=== PATIENT | male | born 1940 | race Caucasian/White ===

== ENCOUNTER → 2018-09-02 12:51 | Outpatient (CLI) | payer MEDICARE, BC, SELFPAY ==
[2018-08-28 11:23] VITALS: BMI 30.8
--- NOTE | 2018-09-02 12:54 | CDU_ITS ---
Reason For Study: STENOSIS Rt. Velocities/BP Lt. Velocities/BP Prox CCA 85/13 cm/sec. Prox CCA 97/19 cm/sec. Mid CCA 56/11 cm/sec. Mid CCA 56/14 cm/sec. Dist CCA 94/20 cm/sec. Dist CCA 64/19 cm/sec. Prox ICA 86/28 cm/sec. Prox ICA 135/32 cm/sec. Mid ICA 61/24 cm/sec. Mid ICA 101/34 cm/sec. Dist ICA 57/21 cm/sec. Dist ICA 74/29 cm/sec. Rt. ICA/CCA = 1.54. Lt. ICA/CCA = 2.4. Prox ECA 141/21 cm/sec. Prox ECA 86/10 cm/sec. Rt. Vert. 21/0 cm/sec. Lt. Vert. 42/19 cm/sec. Right Extracranial There is heterogeneous, irregular atherosclerotic plaque noted in the right common carotid artery. There is heterogeneous, irregular atherosclerotic plaque noted in the right internal carotid artery. There is heterogeneous, irregular atherosclerotic plaque noted in the right external carotid artery. Antegrade flow is noted in the right vertebral artery. Rt Vertebral demonstrates diminished flow. Left Extracranial There is heterogeneous, smooth atherosclerotic plaque noted in the left common carotid artery. There is heterogeneous, irregular atherosclerotic plaque noted in the left internal carotid artery. There is no significant atherosclerotic plaque noted in the left external carotid artery. Antegrade flow is noted in the left vertebral artery. Procedure Carotid Duplex [id number]. Exam performed in department. Interpretation Summary Minimal calcific plague right mid common carotid artery Irregular plague at the proximal right internal carotid with <50% stenosis Mild disease right external carotid Minimal calcific plague distal left common carotid artery Irregular calcific plague at the proximal left internal carotid with 50-69% stenosis. Normal flow left external carotid Patent and antegrade vertebrals bilaterally No change from 01/05/16. Ordering Physician: Eber Cuenca Referring Physician: ANGY CARMONA Performed By: Chioma Nayak, HILLARY, RVT
== END ==
PROVIDERS: Family Provider Family Medicine; PCP Family Medicine; Referring Provider Internal Medicine Cardiovascular Disease; Visit Provider Internal Medicine Cardiovascular Disease
DX: I65.23 Occlusion and stenosis of bilateral carotid arteries (principal); E78.5 Hyperlipidemia, unspecified; I10 Essential (primary) hypertension
CPT/HCPCS: 93880

== ENCOUNTER → 2018-09-10 09:43 | Outpatient (CLI) | payer MEDICARE, BC, SELFPAY ==
[2018-08-28 11:23] VITALS: BMI 30.8
[2018-09-10 10:40] LABS: AST(SGOT) 15 U/L (15-37); Alanine Aminotransfer ALT/SGPT 26 U/L (16-61); Albumin, Serum 3.7 g/dL (3.2-5.0); Alkaline Phosphatase 91 U/L (45-117); Bilirubin, Direct 0.16 mg/dL (0.00-0.30); Cholesterol 188 mg/dL (200); Globulin 3.6 g/dL (2.2-4.2); High Density Lipoprotein 49 mg/dL; Protein, Total 7.3 g/dL (6.4-8.2); Triglycerides 159 mg/dL; Very Low Density Lipoprotein 32 mg/dL (5-40)
== END ==
PROVIDERS: Family Provider Family Medicine; PCP Family Medicine; Referring Provider Internal Medicine Cardiovascular Disease; Visit Provider Internal Medicine Cardiovascular Disease
DX: E78.5 Hyperlipidemia, unspecified (principal); I10 Essential (primary) hypertension; I65.23 Occlusion and stenosis of bilateral carotid arteries
CPT/HCPCS: 36415; 80061; 80076

== ENCOUNTER → 2019-11-08 08:10 | Outpatient (CLI) | payer MEDICARE, BC, SELFPAY ==
[2019-10-13 09:35] VITALS: BMI 30.8
--- NOTE | 2019-11-08 08:12 | CDU_ITS ---
Reason For Study: Carotid stenosis Rt. Velocities/BP Lt. Velocities/BP Prox CCA 74.7/9.5 cm/sec. Prox CCA 71.1/12.6 cm/sec. Mid CCA 44.3/13.5 cm/sec. Mid CCA 53.2/11.6 cm/sec. Dist CCA 62.9/13.5 cm/sec. Dist CCA 57/11.6 cm/sec. Prox ICA 64.2/12.6 cm/sec. Prox ICA 137.5/40.7 cm/sec. Mid ICA 106/40.9 cm/sec. Mid ICA 80.9/27.9 cm/sec. Dist ICA 71.6/22.5 cm/sec. Dist ICA 73.6/22.5 cm/sec. Rt. ICA/CCA = 1.7. Lt. ICA/CCA = 2.4. Prox ECA 117.4/18.8 cm/sec. Prox ECA 78.3/13.5 cm/sec. Rt. Vert. 18.8 cm/sec. Lt. Vert. 35.2/14.2 cm/sec. Right Extracranial There is heterogeneous, irregular atherosclerotic plaque noted in the right common carotid artery. There is heterogeneous, irregular atherosclerotic plaque noted in the right internal carotid artery. There is heterogeneous, irregular atherosclerotic plaque noted in the right external carotid artery. Antegrade flow is noted in the right vertebral artery. Abnormal waveforms noted in the right vertebral artery. Left Extracranial There is heterogeneous, smooth atherosclerotic plaque noted in the left common carotid artery. There is heterogeneous, irregular atherosclerotic plaque noted in the left internal carotid artery. There is intimal thickening but no significant atherosclerotic plaque noted in the left external carotid artery. Antegrade flow is noted in the left vertebral artery. Procedure Carotid Duplex [id number]. Exam performed in department. Interpretation Summary Minimal irregular calcific plaque of the proximal right internal carotid artery with less than 50% stenosis. <50% stenosis right external carotid Irregular calcific plaque at the proximal left internal and external carotid arteries. 50-69% stenosis left internal carotid <50% stenosis left external carotid Patent, antegrade vertebrals bilaterally with very low flow noted on the right No significant change since September 02, 2018 Ordering Physician: Eber Cuenca Referring Physician: Enrrique Ryan Performed By: Cece John RVT
--- NOTE | 2019-11-08 08:12 | ECHOD_ITS ---
Reason For Study: AFIB Procedure This was a 2D Doppler, Color Flow transthoracic echocardiogram. Exam performed in department. Left Ventricle Moderate concentric left ventricular hypertrophy. The estimated ejection fraction is 65 %. Unable to assess diastolic dysfunction due to arrhythmia. Septal motion consistent with IVCD. No regional wall motion abnormalities noted. Right Ventricle Mildly dilated right ventricle. Normal systolic function. Atria The left atrium is moderately enlarged. The right atrium is severely enlarged. Normal atrial septum. Mitral Valve Mild diffuse mitral valve thickening. Mild mitral annular calcification extending into the posterior leaflet. Mild-Moderate (1-2+) eccentric mitral valve insufficiency. Tricuspid Valve Normal tricuspid valve. Mild to moderate (1-2+) tricuspid valve insufficiency. Right ventricular systolic pressure estimated to be 46 mmHg. Mild pulmonary hypertension. Aortic Valve Trisinus/trileaflet aortic valve. Mild diffuse aortic valve thickening. Trivial aortic valve insufficiency. Pulmonic Valve Normal pulmonic valve. Great Vessels Normal aortic root. Normal arch. Normal inferior vena cava. Inferior vena cava collapse with sniff. Pericardium/Pleural No pericardial effusion. MMode/2D Measurements & Calculations LVIDd: 3.6 cm IVSd: 1.4 cm Ao root diam: 4.2 cm LVIDs: 2.5 cm LVPWd: 1.4 cm RVDd: 3.7 cm FS: 31.6 % LAV(MOD-bp): 73.1 ml EDV(MOD-sp4): 69.9 ml EDV(MOD-sp2): 59.6 ml LAV(MOD-bp) Indexed: 34.0 ml/m2 ESV(MOD-sp4): 33.7 ml EF(MOD-sp2): 51.1 % LAV(MOD-sp2): 62.3 ml EF(MOD-sp4): 51.8 % LAV(MOD-sp4): 76.7 ml SV(MOD-sp4): 36.3 ml SV(MOD-sp2): 30.4 ml LA A4 area: 23.3 cm2 LA dimension(2D): 4.5 cm RA A4 area: 25.3 cm2 Time Measurements MV dec time: 0.17 sec Doppler Measurements & Calculations MV E max josé: 92.2 cm/sec Ao V2 max: 121.3 cm/sec LV V1 max: 81.0 cm/sec Ao max P.9 mmHg LV V1 max P.6 mmHg Ao V2 mean: 88.0 cm/sec LV V1 mean P.6 mmHg Ao mean P.4 mmHg LV V1 mean: 57.7 cm/sec Ao V2 VTI: 21.9 cm LV V1 VTI: 16.9 cm TR max josé: 266.4 cm/sec TR max P.4 mmHg Interpretation Summary Moderate concentric left ventricular hypertrophy. The estimated ejection fraction is 65 %. Unable to assess diastolic dysfunction due to arrhythmia. Mildly dilated right ventricle. The left atrium is moderately enlarged. The right atrium is severely enlarged. Mild-Moderate (1-2+) eccentric mitral valve insufficiency. Mild to moderate (1-2+) tricuspid valve insufficiency. Right ventricular systolic pressure estimated to be 46 mmHg. Mild pulmonary hypertension. Trivial aortic valve insufficiency. Compared to echo report dated 12/19/2016, no appreciable changes noted. Patient appears to be in atrial fibrillation on today's exam. Ordering Physician: Eber Cuenca Referring Physician: ANGY CARMONA Performed By: Chioma Nayak, HILLARY, RVT
[2019-11-08 09:07] LABS: AST(SGOT) 13 U/L (15-37); Alanine Aminotransfer ALT/SGPT 26 U/L (16-61); Albumin, Serum 3.7 g/dL (3.2-5.0); Alkaline Phosphatase 89 U/L (45-117); Bilirubin, Direct 0.17 mg/dL (0.00-0.30); Cholesterol 174 mg/dL (200); Globulin 3.2 g/dL (2.2-4.2); High Density Lipoprotein 49 mg/dL; Protein, Total 6.9 g/dL (6.4-8.2); Triglycerides 132 mg/dL; Very Low Density Lipoprotein 26 mg/dL (5-40)
== END ==
PROVIDERS: PCP Family Medicine; Referring Provider Internal Medicine Cardiovascular Disease; Visit Provider Internal Medicine Cardiovascular Disease
DX: R94.31 Abnormal electrocardiogram [ECG] [EKG] (principal); E78.5 Hyperlipidemia, unspecified; I65.23 Occlusion and stenosis of bilateral carotid arteries
CPT/HCPCS: 36415; 80061; 80076; 93306; 93880

== ENCOUNTER 2022-03-31 19:50 | Emergency (ER) | payer MEDICARE, SELFPAY ==
[2022-03-31 19:51] VITALS: BP 137/58; PULSE 105; RESP 15; TEMP 36.2; O2SAT 97; BMI 30.8
[2022-03-31 20:01] VITALS: BP 137/58; PULSE 105; RESP 15; TEMP 36.2; O2SAT 97
--- NOTE | 2022-03-31 20:09 | EKG12_ITS ---
Test Reason : DYSRHYTHMIA Blood Pressure : / mmHG Vent. Rate : 095 BPM Atrial Rate : 258 BPM P-R Int : 000 ms QRS Dur : 118 ms QT Int : 358 ms P-R-T Axes : 000 -79 087 degrees QTc Int : 449 ms Atrial fibrillation Left axis deviation Inferior infarct , age undetermined Anterior infarct , age undetermined Abnormal ECG Confirmed by SISSY GARCIA, SHAKIRA ([id number]), newspaper editor CHARLES VALIENTE ([id number]) on 04/01/2022 9:37:00 AM Referred By: VICKY Confirmed By:SHAKIRA SHEEHAN MD
--- NOTE | 2022-03-31 20:15 | EX.ED.DYSGE1 ---
HPI History of Present Illness Chief Complaint: Dizziness Detail of Chief Complaint: Lightheadedness, rash, positive COVID symptoms and test March 28 Informant: patient and family Onset/Context/Timing Onset: Hours (Present symptoms started hour before presentation.) Context: Sudden Onset Timing: Continuous Quality: Lightheadedness, feeling weak and diarrhea. Location: [facility] Current Severity: Mild Maximum Severity: Moderate Worsened by: Upright position Relieved by: Nothing Associated Symptoms Associated Symptoms: Patient was unaware that he had a fine erythematous blanching reticular dixon Narrative Narrative: Patient presents because of dizziness, which he defines as lightheadedness. This occurred while he was in the shower. He developed symptoms that were suggestive of COVID March 28. He had a COVID PCR test performed on which was positive. Since he was not a candidate for Paxlovid he was prescribed Molnupiravir. Information was sought since I am unfamiliar with this medicine. The symptoms he is presently having are common side effects of the medication. Patient denies headache. He denies visual, ocular auditory symptoms. He denies chest discomfort or shortness of breath. He denies black or maroon-colored stool. He does report diarrhea. He states significant amount of loose watery stool. He had decreased urine output. He does endorse thirst and dry mouth. Reviewing his medications indicate that he is on a diuretic. He denies fever, chills or night sweats. He was unaware that he had a rash. Prior similar symptoms: No Recent Illness/Hospitalization: Yes [facility] Medical History (Updated 03/31/22 @ 21:[address] Bar Orantes MD) Anxiety Bilateral carotid artery stenosis BPH w urinary obs/LUTS Depression Essential hypertension Hyperlipidemia Obesity Persistent atrial fibrillation Rosacea Type 2 diabetes mellitus without complications Home Medications clonidine HCl 0.1 mg tablet 0.1 mg PO DAILY 11/29/16 [History Last Taken 02/12/17] lisinopril 40 mg tablet 40 mg PO DAILY 11/29/16 [History Last Taken 02/12/17] lorazepam 0.5 mg tablet 0.5 mg PO DAILY PRN PRN Anxiety 01/13/17 [History Last Taken Unknown] aspirin 81 mg tablet,delayed release (Adult Aspirin Regimen) 81 mg PO DAILY 08/28/18 [History Last Taken Unknown] amlodipine 10 mg tablet 10 mg PO DAILY 09/11/18 [History Last Taken Unknown] cholecalciferol (vitamin D3) 50 mcg (2,000 unit) capsule 2,000 unit PO DAILY 04/12/19 [History Last Taken Unknown] carvedilol 3.125 mg tablet (Coreg) 3.125 mg PO BID #180 tabs 08/09/21 [Rx Last Taken Unknown] rivaroxaban 20 mg tablet (Xarelto) 20 mg PO QDAY bottle is lost, pt out for 2 days. Needs JAYME #30 tabs 11/01/21 [Rx Last Taken Unknown] allopurinol 100 mg tablet 100 mg PO DAILY 03/31/22 [History Last Taken Unknown] atorvastatin 20 mg tablet 20 mg PO DAILY 03/31/22 [History Last Taken Unknown] furosemide 20 mg tablet 20 mg PO DAILY 03/31/22 [History Last Taken Unknown] metformin 500 mg tablet,extended release 24 hr 500 mg PO DAILY 03/31/22 [History Last Taken Unknown] molnupiravir 200 mg capsule (EUA) (Lagevrio) 800 mg PO BID 03/31/22 [History Last Taken Unknown] Allergy/AdvReac Type Severity Reaction Status Date / Time Cephalosporins Allergy Rash Verified 03/31/22 19:57 doxycycline Allergy Rash Verified 03/31/22 19:57 simvastatin [From Zocor] AdvReac Intermediate Myalgias Verified 03/31/22 19:57 Family History Daughter Atrial tachycardia RFA Brother CAD (coronary artery disease) Surgical History H/O left knee surgery History of cardioversion (02/12/17) History of left heart catheterization (01/16/17) History of tonsillectomy and adenoidectomy Social History (Updated 03/31/22 @ 20:[address] Bar Orantes MD) household members: spouse Smoking Status: Former smoker how long ago did patient quit smokin years ago alcohol intake: never substance use type: does not use caffeine: Yes Type: coffee Number of servings: 2 ROS ROS ED Constitutional Constitutional ED: Denies chills, fever(s), subjective, sweats or weight loss Eyes Eyes: Denies blurry vision, change in vision or diplopia ENT ENT ED: Reports rhinorrhea; Denies ear pain or sore throat Cardiovascular Cardiovascular: Reports palpitations; Denies chest pain, orthopnea, paroxysmal nocturnal dyspnea or racing heartbeat Respiratory/Chest Respiratory/Chest: Reports cough, dyspnea and dyspnea on exertion; Denies orthopnea, paroxysmal nocturnal dyspnea or sputum Gastrointestinal Gastrointestinal: Reports diarrhea; Denies abdominal pain, constipation, melena or vomiting Genitourinary Genitourinary ED: Denies dysuria, hematuria or urinary frequency Musculoskeletal Musculoskeletal: Reports arthralgias and myalgias; Denies back pain or neck pain Integumentary Reports other Details: Patient was unaware that he had a blanching erythematous lenticular rash with delayed capillary refill. ; Denies Abrasions or rash Neurologic Neurologic: Reports headache(s); Denies paresthesias or weakness Psychiatric Psychiatric: Denies anxiety or depression Endocrine Endocrinology: Denies cold intolerance or heat intolerance Hematologic/Lymphatic Hematologic/Lymphatic: Reports systems reviewed and no addt'l complaints, except as documented and easy bruising; Denies anemia or easy bleeding Allergic/Immunologic Allergic/Immunologic ED: Denies mouth swelling, tongue swelling or urticaria EXAM Physical Exam Const Vital Signs: 03/31/22 19:51 03/31/22 20:01 03/31/22 20:05 Temperature 97.1 F L 97.1 F L Temperature Source Temporal Temporal Pulse Rate 105 H 105 H Pulse Rate [Lying] Pulse Rate [Sitting (for 1 minute prior to obtaining)] Respiratory Rate 15 15 Respiratory Effort Normal Non-Labored Respiratory Pattern Normal Blood Pressure 137/58 H 137/58 H Blood Pressure [Lying] Blood Pressure [Sitting (for 1 minute prior to obtaining)] Blood Pressure Mean 84 84 Blood Pressure Mean [Lying] Blood Pressure Mean [Sitting (for 1 minute prior to obtaining)] Pulse Ox 97 97 Oxygen Delivery Method Room Air Room Air 03/31/22 20:19 Temperature Temperature Source Pulse Rate Pulse Rate [Lying] 98 Pulse Rate [Sitting (for 1 minute prior to obtaining)] 112 H Respiratory Rate Respiratory Effort Respiratory Pattern Blood Pressure Blood Pressure [Lying] 121/79 H Blood Pressure [Sitting (for 1 minute prior to obtaining)] 135/96 H Blood Pressure Mean Blood Pressure Mean [Lying] 93 Blood Pressure Mean [Sitting (for 1 minute prior to obtaining)] 109 Pulse Ox Oxygen Delivery Method Positive well nourished, well developed and obese Constitutional Narrative: Patient has a rash with delayed cap refill. He does not appear toxic. Question of cyanosis of his lips. General Appearance ED: well developed; Negative for NAD or pallor Nutritional Appearance: obese HEENT Reports moist mucous membranes HEENT Narrative: Head is atraumatic normocephalic. Ears normal. Nares patent. Uvula midline. No deviation of tongue with protrusion. There is no erythema or exudate of the posterior pharynx. Eyes PERRL and EOMs intact bilaterally General Eye ED: Negative for pale conjunctiva or scleral icterus Neck no lymphadenopathy, supple and no JVD Chest Wall inspection of chest normal and palpation of chest normal Resp normal respiratory effort and clear to auscultation bilaterally Cardio no murmurs Rate: tachycardic Rhythm: abnormal rhythm irregularly irregular GI normal to inspection, nondistended, normoactive bowel sounds, non-tender and no masses Palpation: soft Back/Spine no CVA tenderness Extremity normal to inspection General Extremety ED: Negative for edema or tenderness General Extremity: Negative for edema Neuro oriented x3, CN's II-XII intact bilaterally and no sensory deficits noted Sensorium / Orientation: alert Motor Exam: strength 5/5 throughout Psych mental status grossly normal Skin no wounds Skin Narrative: Patient has a lenticular erythematous rash. There is delayed capillary refill. This is predominantly on his torso. General Skin Exam: Negative for jaundice or pallor MDM MDM MDM Narrative Medical decision making narrative: Monitor reveals atrial fibrillation with rate varying between 95 and 130. Patient's symptoms are consistent with side effects due to the antiviral he was prescribed for COVID-19 infection. I reviewed the indications and side effects. Symptoms the patient is presently symptoms are known side effects of the medication. In review viewing of document patient does not meet criteria for to be treated with the medication. Patient was placed on the monitor. IV was established. Orthostatic vitals were ordered. Fluid bolus was ordered. Blood work was obtained to assess for any evidence of renal injury, electrolyte abnormality since he has diarrhea, white count and differential. Presently he has no signs or symptoms to suggest he has angioedema which is a known complication to the medication. He denies chest discomfort or trouble breathing. These also are known side effects to the medication. Lab Data Attestation: I reviewed the patient's lab results. Lab results narrative: White count is lower end of normal. Differential is unremarkable. Lactate is normal. Electrolyte panel is remarkable for a sodium of 133 which is insignificant. Labs: Laboratory Results - last 24 hr 03/31/22 03/31/22 03/31/22 20:05 20:05 20:05 WBC 4.7 RBC 5.70 Hgb 17.9 H Hct 52.8 MCV 92.6 MCH 31.4 MCHC 33.9 RDW Std Deviation 44.5 H RDW Coeff of Alli 13.2 Plt Count 171 MPV 9.6 Immature Gran % (Auto) 0.400 Neut % (Auto) 64.1 Lymph % (Auto) 22.6 [place] % (Auto) 12.3 H Eos % (Auto) 0.0 Baso % (Auto) 0.6 Absolute Neuts (auto) 3.0 Absolute Lymphs (auto) 1.06 Nucleated RBC % 0 Sodium 133 L Potassium 4.1 Chloride 100 Carbon Dioxide 25.0 Anion Gap 8 BUN 17 Creatinine 1.19 Estim Creat Clear Calc 49.42 Est GFR (MDRD) Af Amer 75 Est GFR (MDRD) Non-Af 62 BUN/Creatinine Ratio 14.3 Glucose 183 H Lactic Acid 1.4 Calcium 8.9 Total Bilirubin 0.50 AST 20 ALT 27 Alkaline Phosphatase 79 Total Protein 7.4 Albumin 3.6 Globulin 3.8 Albumin/Globulin Ratio 0.9 EKG Initial EKG: Attestation: I personally reviewed and interpreted this EKG as follows: Interpretation: Atrial Fibrillation (Rate is 95. Cures duration 118 ms. QT duration 1058 ms. [place] to left. Patient has decreased anterior force. There is no ossific changes noted. There is no evidence of acute ischemia.) Treatment and Re-Evaluation Narrative: I was informed by nurse that his heart rate increased approximately 20 beats from supine to sitting. He was unable to stand because of dizziness lightheadedness. Patient feels improved after 1 L of normal saline. Heart rate is improved and rate varies between 82 and 95. He remains in atrial fib. Discharge Plan Triage Chief Complaint: Dizziness ED Provider: Bar Orantes Dx/Rx/DC Orders Clinical Impression: Adverse effect of drug/medicinal, Essential hypertension, Persistent atrial fibrillation, Atrial fibrillation with RVR, Orthostatic hypotension, Diarrhea due to drug, COVID-19 virus infection Instructions: ED Drug Reaction, Other, ED Hypotension, Orthostatic Prescriptions: No Action aspirin [Adult Aspirin Regimen] 81 mg tablet,delayed release (DR/EC) 81 mg PO DAILY cholecalciferol (vitamin D3) 2,000 unit capsule 2,000 unit PO DAILY amlodipine 10 mg tablet 10 mg PO DAILY clonidine HCl 0.1 MG tablet 0.1 mg PO DAILY lisinopril 40 MG tablet 40 mg PO DAILY lorazepam 0.5 MG tablet 0.5 mg PO DAILY PRN PRN (Reason: Anxiety) allopurinol 100 mg Tablet 100 mg PO DAILY atorvastatin 20 mg tablet 20 mg PO DAILY Label Comments: Take 1 tablet by mouth daily at bedtime. For cholesterol. furosemide 20 mg tablet 20 mg PO DAILY Label Comments: Take 1 tablet by mouth once daily. metformin 500 mg tablet extended release 24 hr 500 mg PO DAILY Label Comments: Take 1 tablet by mouth daily with breakfast. Lagevrio (EUA) 200 mg capsule 800 mg PO BID carvedilol [Coreg] 3.125 mg tablet 3.125 mg PO BID Qty: 180 3RF Rx Instructions: must administer with a meal/food Xarelto 20 mg tablet 20 mg PO QDAY Qty: 30 11RF Primary Care Provider: Enrrique Ryan Referrals: Enrrique Ryan MD [Primary Care Provider] - 1-2 Days if not improving Activity Restrictions/Additional Instructions: Discontinue taking the medication for COVID-19, Molnupiravir. Disposition Disposition: Home, Self Care
[2022-03-31 20:19] VITALS: BP 121/79; BP 135/96; PULSE 112; PULSE 98
[2022-03-31 20:25] LABS: Absolute Lymphocyte Count 1.06 X10^3/uL (0.83-4.51); Basophil# 0.03 X10^3/uL; Basophil% 0.6 % (0-1); Hematocrit 52.8 % (40-54); Hemoglobin 17.9 g/dL (13.0-16.5); Lymphocyte # 1.06 X10^3/ul (0.83-4.51); Lymphocyte % 22.6 % (19-41); Mean Corp Hgb Conc 33.9 g/dL (32-36); Mean Corpuscular Hgb 31.4 pg (27.0-32.0); Mean Corpuscular Volume 92.6 fL (80-94); Mean Platelet Vol. 9.6 fl (6.2-12.0); Monocyte# 0.58 X10^3/uL; Monocyte% 12.3 % (0-10); NRBC Flagged by Analyzer 0 % (0-5); Neutrophil # 3.01 X10^3/uL (2.7-7.7); Neutrophil % 64.1 % (47-70); Platelet Count 171 K/mm3 (150-450); RBC Distribution Width CV 13.2 % (11.6-14.6); RBC Distribution Width SD 44.5 fl (35.1-43.9); White Blood Count 4.7 K/mm3 (4.4-11.0)
[2022-03-31 20:36] LABS: ALB/GLOB Ratio 0.9 RATIO (0.9-2.4); AST(SGOT) 20 U/L (15-37); Alanine Aminotransfer ALT/SGPT 27 U/L (16-61); Albumin, Serum 3.6 g/dL (3.2-5.0); Alkaline Phosphatase 79 U/L (45-117); Anion Gap 8 (5-15); BUN 17 mg/dL (7-18); BUN/Creat Ratio 14.3 RATIO (10-20); Calcium,Total 8.9 mg/dL (8.5-10.1); Chloride 100 mmol/L (98-107); Creatinine, Serum 1.19 mg/dL (0.70-1.30); EST Glomerular Filtration Rate 62 mL/min (>60); Est Glom Filt Rate - Afr Amer 75 mL/min (>60); Estimated Creatinine Clearance 49.42 ml/min; Globulin 3.8 g/dL (2.2-4.2); Glucose 183 mg/dL (74-106); Potassium 4.1 mmol/L (3.5-5.1); Protein, Total 7.4 g/dL (6.4-8.2); Sodium Level 133 mmol/L (136-145)
[2022-03-31 20:49] LABS: Lactic Acid 1.4 mmol/L (0.4-1.9)
[2022-03-31 21:39] VITALS: BP 128/78; PULSE 87; RESP 15; O2SAT 98
== END 2022-03-31 21:52 | disposition home or self-care (01) ==
PROVIDERS: Emergency Provider Emergency Medicine; PCP Family Medicine; Visit Provider Emergency Medicine
DX: U07.1 COVID-19 (principal); I48.19 Other persistent atrial fibrillation; E11.9 Type 2 diabetes mellitus without complications; R42 Dizziness and giddiness; T37.5X5A Adverse effect of antiviral drugs, initial encounter; I10 Essential (primary) hypertension; I95.1 Orthostatic hypotension; R21 Rash and other nonspecific skin eruption; Z87.891 Personal history of nicotine dependence; R19.7 Diarrhea, unspecified; E78.5 Hyperlipidemia, unspecified; Z79.84 Long term (current) use of oral hypoglycemic drugs; Z79.899 Other long term (current) drug therapy
CPT/HCPCS: 80053; 83605; 85025; 93005; 96360; 99285; J7030; A4216

== ENCOUNTER → 2022-06-05 | Outpatient (CLI) | payer MEDICARE, SELFPAY ==
--- NOTE | 2022-06-05 12:55 | CDU_ITS ---
Reason For Study: Carotid artery stenosis Rt. Velocities/BP Lt. Velocities/BP Prox CCA 67.4/8.8 cm/sec. Prox CCA 61.7/11.6 cm/sec. Mid CCA 47.5/12.6 cm/sec. Mid CCA 51.3/11.6 cm/sec. Dist CCA 55.1/9.7 cm/sec. Dist CCA 54.1/11.6 cm/sec. Prox ICA 80.2/26.2 cm/sec. Prox ICA 134.6/44.6 cm/sec. Mid ICA 72.8/16.3 cm/sec. Mid ICA 70.4/17.6 cm/sec. Dist ICA 46.5/14.6 cm/sec. Dist ICA 59.3/16.3 cm/sec. Rt. ICA/CCA = 1.46. Lt. ICA/CCA = 2.49. Prox ECA 122.9/7.9 cm/sec. Prox ECA 91.2/7.7 cm/sec. Rt. Vert. 12.2 cm/sec. Lt. Vert. 37.7/11.3 cm/sec. Right Extracranial There is heterogeneous, irregular atherosclerotic plaque noted in the right common carotid artery. There is heterogeneous, irregular atherosclerotic plaque noted in the right internal carotid artery. There is heterogeneous, irregular atherosclerotic plaque noted in the right external carotid artery. Antegrade flow is noted in the right vertebral artery. Left Extracranial There is heterogeneous, smooth atherosclerotic plaque noted in the left common carotid artery. There is heterogeneous, irregular atherosclerotic plaque noted in the left internal carotid artery. There is heterogeneous, smooth atherosclerotic plaque noted in the left external carotid artery. Antegrade flow is noted in the left vertebral artery. Procedure Carotid Duplex [id number]. This is a Carotid Duplex examination using B-mode, color flow and specral Doppler. Exam performed in department. VL/Carotid Duplex Ultrasound Interpretation Summary Irregular calcific plaque at the proximal right internal carotid artery with le ss than 50% stenosis Less than 50% stenosis right external carotid artery Prestenotic flow right vertebral Calcific plaque with shadowing at the proximal left internal carotid with 50 to 69% stenosis Less than 50% stenosis left external carotid Patent antegrade left vertebral No significant change from the previous examination of November 08, 2019 Ordering Physician: Lola Sahni Referring Physician: Enrrique Ryan Performed By: Cece John RVT
== END | disposition home or self-care (01) ==
LOC: CVS 12:54
PROVIDERS: PCP Family Medicine; Referring Provider Nurse Practitioner Gerontology; Visit Provider Nurse Practitioner Gerontology
DX: I65.23 Occlusion and stenosis of bilateral carotid arteries (principal)
CPT/HCPCS: 93880

== ENCOUNTER 2023-04-23 23:08 | Emergency (ER) | payer MEDICARE, SELFPAY ==
[2023-04-23 23:09] VITALS: BP 178/99; PULSE 133; RESP 18; TEMP 36.6; O2SAT 99; BMI 31.3
--- NOTE | 2023-04-23 23:16 | EKG12_ITS ---
Test Reason : DYSRHYTHMIA Blood Pressure : / mmHG Vent. Rate : 097 BPM Atrial Rate : 000 BPM P-R Int : 000 ms QRS Dur : 118 ms QT Int : 384 ms P-R-T Axes : 000 -74 101 degrees QTc Int : 487 ms Atrial fibrillation with premature ventricular or aberrantly conducted complexes Left axis deviation Minimal voltage criteria for LVH, may be normal variant ( Cristian product ) Inferior infarct (cited on or before 31-MAR-2022) Anterior infarct (cited on or before 31-MAR-2022) ST & T wave abnormality, consider lateral ischemia Abnormal ECG Confirmed by PREET GARCIA, JONATHAN ([id number]), social media editor CARLITO DAILY ([id number]) on 05/05/2023 8:03:40 AM Referred By: Confirmed By:ZACHARY OVIEDO MD
[2023-04-23 23:40] VITALS: O2SAT 97
[2023-04-23 23:45] LABS: Absolute Lymphocyte Count 1.56 X10^3/uL (0.83-4.51); Absolute Neutrophil Count 7.6 X10^3/uL (2.0-7.7); Basophil# 0.07 X10^3/uL; Basophil% 0.7 % (0-1); Eosinophil# 0.01 X10^3/uL; Eosinophils% 0.1 % (0-5); Hemoglobin 17.4 g/dL (13.0-16.5); Lymphocyte # 1.56 X10^3/ul (0.83-4.51); Lymphocyte % 15.5 % (19-41); Mean Corp Hgb Conc 34.8 g/dL (32-36); Mean Corpuscular Hgb 32.3 pg (27.0-32.0); Mean Corpuscular Volume 92.8 fL (80-94); Mean Platelet Vol. 9.4 fl (6.2-12.0); Monocyte# 0.79 X10^3/uL; Monocyte% 7.8 % (0-10); NRBC Flagged by Analyzer 0 % (0-5); Neutrophil # 7.63 X10^3/uL (2.7-7.7); Neutrophil % 75.6 % (47-70); Platelet Count 222 K/mm3 (150-450); RBC Distribution Width CV 13.4 % (11.6-14.6); RBC Distribution Width SD 45.8 fl (35.1-43.9); Red Blood Count 5.39 M/mm3 (4.6-6.2); White Blood Count 10.1 K/mm3 (4.4-11.0)
[2023-04-23 23:51] LABS: International Normalized Ratio 1.3; Partial Thromboplast Time 34.5 Seconds (24.1-36.2); Prothrombin Time (Protime)PT. 16.1 SECONDS (11.7-14.9)
[2023-04-23] MEDS: LORazepam 2 MG/ML Syringe 1 MG IV (23:55)
[2023-04-23 23:56] LABS: Anion Gap 7 (5-15); BUN 19 mg/dL (7-18); BUN/Creat Ratio 19.5 RATIO (10-20); Calcium,Total 9.4 mg/dL (8.5-10.1); Chloride 103 mmol/L (98-107); Creatinine, Serum 0.98 mg/dL (0.70-1.30); EST Glomerular Filtration Rate 78 mL/min (>60); Est Glom Filt Rate - Afr Amer 94 mL/min (>60); Estimated Creatinine Clearance 55.26 ml/min; Glucose 199 mg/dL (74-106); Potassium 4.4 mmol/L (3.5-5.1); Sodium Level 136 mmol/L (136-145)
[2023-04-24 00:13] LABS: Magnesium 2.3 mg/dL (1.6-2.6)
--- NOTE | 2023-04-24 00:49 | EDS_ITS ---
HPI History of Present Illness Chief Complaint: Dizziness Informant: patient and family Narrative Narrative: Patient is a 82-year-old male with past medical history of persistent A-fib on Xarelto with hypertension and hyperlipidemia. He and family state that his who has dementia was somehow able to get a hold of his car keys and she left the house and when driving and they cannot find her. He states that they contacted authorities and on the family numbers and despite looking have not been successful in finding the patient's . The patient states that 1 to 2 hours after this event and the fact he could not find her he started to get nervous/anxious and began feeling lightheaded and dizzy. His symptoms not improved and secondary to this he was brought to the hospital for evaluation [facility] Medical History Anxiety Bilateral carotid artery stenosis BPH w urinary obs/LUTS Depression Essential hypertension Hyperlipidemia Obesity Persistent atrial fibrillation Rosacea Type 2 diabetes mellitus without complications Home Medications clonidine HCl 0.1 mg tablet 0.1 mg PO DAILY 11/29/16 [History Last Taken 02/12/17] lisinopril 40 mg tablet 40 mg PO DAILY 11/29/16 [History Last Taken 02/12/17] lorazepam 0.5 mg tablet 0.5 mg PO DAILY PRN PRN Anxiety 01/13/17 [History Last Taken Unknown] aspirin 81 mg tablet,delayed release (Adult Aspirin Regimen) 81 mg PO DAILY 08/28/18 [History Last Taken Unknown] amlodipine 10 mg tablet 10 mg PO DAILY 09/11/18 [History Last Taken Unknown] cholecalciferol (vitamin D3) 50 mcg (2,000 unit) capsule 2,000 unit PO DAILY 04/12/19 [History Last Taken Unknown] allopurinol 100 mg tablet 100 mg PO DAILY 03/31/22 [History Last Taken Unknown] atorvastatin 20 mg tablet 20 mg PO DAILY 03/31/22 [History Last Taken Unknown] furosemide 20 mg tablet 20 mg PO DAILY 03/31/22 [History Last Taken Unknown] metformin 500 mg tablet,extended release 24 hr 500 mg PO DAILY 03/31/22 [History Last Taken Unknown] carvedilol 3.125 mg tablet (Coreg) 3.125 mg PO BID #180 tabs 08/23/22 [Rx Last Taken Unknown] rivaroxaban 20 mg tablet (Xarelto) 20 mg PO QDAY #30 tabs 11/04/22 [Rx Last Taken Unknown] Allergy/AdvReac Type Severity Reaction Status Date / Time Cephalosporins Allergy Rash Verified 04/23/23 23:11 doxycycline Allergy Rash Verified 04/23/23 23:11 simvastatin [From Zocor] AdvReac Intermediate Myalgias Verified 04/23/23 23:11 Family History Daughter Atrial tachycardia RFA Brother CAD (coronary artery disease) Surgical History H/O left knee surgery History of cardioversion (02/12/17) History of left heart catheterization (01/16/17) History of tonsillectomy and adenoidectomy Social History household members: spouse Smoking Status: Former smoker how long ago did patient quit smokin years ago alcohol intake: never substance use type: does not use caffeine: Yes Type: coffee Number of servings: 2 ROS ROS ED Constitutional Constitutional ED: Denies chills or fever(s) Eyes Eyes: Denies change in vision ENT ENT ED: Denies sore throat Cardiovascular Cardiovascular: Reports racing heartbeat; Denies chest pain or palpitations Respiratory/Chest Respiratory/Chest: Denies cough or dyspnea Gastrointestinal Gastrointestinal: Denies abdominal pain, diarrhea, nausea or vomiting Genitourinary Genitourinary ED: Denies dysuria Musculoskeletal Musculoskeletal: Denies myalgias Integumentary Denies rash Neurologic Neurologic: Reports other Details: Positive dizziness ; Denies headache(s) Psychiatric Psychiatric: Reports anxiety Hematologic/Lymphatic Hematologic/Lymphatic: Reports easy bleeding and easy bruising EXAM Physical Exam Const Vital Signs: 04/23/23 23:09 04/23/23 23:40 Temperature 97.9 F Temperature Source Temporal Pulse Rate 133 H Respiratory Rate 18 Blood Pressure 178/99 H Blood Pressure Mean 125 Pulse Ox 99 97 Oxygen Delivery Method Room Air Room Air Positive well nourished and well developed General Appearance ED: well developed; Negative for pallor HEENT Reports moist mucous membranes Eyes PERRL and EOMs intact bilaterally General Eye ED: Negative for pale conjunctiva or scleral icterus Neck supple Neck Narrative: No nuchal rigidity or meningeal signs noted Resp normal respiratory effort and clear to auscultation bilaterally Cardio regular rate Rate: other Other Details: Patient has an irregularly irregular rhythm with regular rate consistent with atrial fibrillation GI normal to inspection, nondistended, normoactive bowel sounds, non-tender, non- distended and no masses GI Narrative: No voluntary guarding or rigidity No pulsatile mass or fluid wave Auscultation: normoactive bowel sounds Palpation: soft Extremity normal to inspection Neuro oriented x3, CN's II-XII intact bilaterally and no sensory deficits noted Neuro Narrative: Cranial nerves II through XII are grossly intact there are no focal neurologic deficits No pronator drift no dysmetria no truncal ataxia No nystagmus noted Sensorium / Orientation: alert Motor Exam: strength 5/5 throughout Psych Psych Narrative: Patient has a nervous/anxious affect Skin no rashes or lesions noted General Skin Exam: Negative for jaundice or pallor MDM MDM MDM Narrative Medical decision making narrative: Patient presented to the ER hypertensive but otherwise with stable vitals. He is in atrial fibrillation but has a past medical history of this is anticoagulated on Xarelto and his heart rate is totally normal at 97. His symptoms only began after his social situation and are most consistent with acute anxiety. However as he could have had A-fib with RVR or potential anemia or cute kidney injury or left leg derangement causing his symptoms I did elect to check basic laboratory values. I discussed with patient that as he is on Xarelto there is a possibility of a spontaneous brain bleed leading to his dizziness but as he does not have ataxia drift chances for this are low and therefore patient did not want a head CT obtained. The patient was given Ativan and had improvement of his symptoms. At this time as his overall work-up is negative and vitals stable and his neurologic exam remains normal it appears this is most likely anxiety reaction and patient is safe for discharge as symptoms have improved and he will stay with family this evening History & Record Review Discussion w/independent historian: Patient and Family Lab Data Attestation: I reviewed the patient's lab results. Labs: Laboratory Results - last 24 hr 04/23/23 23:28 WBC 10.1 RBC 5.39 Hgb 17.4 H Hct 50.0 MCV 92.8 MCH 32.3 H MCHC 34.8 RDW Std Deviation 45.8 H RDW Coeff of Alli 13.4 Plt Count 222 MPV 9.4 Immature Gran % (Auto) 0.300 Neut % (Auto) 75.6 H Lymph % (Auto) 15.5 L Glasscock % (Auto) 7.8 Eos % (Auto) 0.1 Baso % (Auto) 0.7 Absolute Neuts (auto) 7.6 Absolute Lymphs (auto) 1.56 Nucleated RBC % 0 PT 16.1 H INR 1.3 APTT 34.5 Sodium 136 Potassium 4.4 Chloride 103 Carbon Dioxide 26.0 Anion Gap 7 BUN 19 H Creatinine 0.98 Estim Creat Clear Calc 55.26 Est GFR (MDRD) Af Amer 94 Est GFR (MDRD) Non-Af 78 BUN/Creatinine Ratio 19.5 Glucose 199 H Calcium 9.4 Magnesium 2.3 Discharge Plan Triage Chief Complaint: Dizziness ED Provider: Diogenes Hermosillo Dx/Rx/DC Orders Clinical Impression: Dizziness, Persistent atrial fibrillation, Anxiety reaction, Current use of assisted anticoagulation, Essential hypertension Instructions: ED Dizziness, Uncertain Cause Prescriptions: No Action aspirin [Adult Aspirin Regimen] 81 mg tablet,delayed release (DR/EC) 81 mg PO DAILY cholecalciferol (vitamin D3) 2,000 unit capsule 2,000 unit PO DAILY amlodipine 10 mg tablet 10 mg PO DAILY clonidine HCl 0.1 MG tablet 0.1 mg PO DAILY lisinopril 40 MG tablet 40 mg PO DAILY lorazepam 0.5 MG tablet 0.5 mg PO DAILY PRN PRN (Reason: Anxiety) allopurinol 100 mg Tablet 100 mg PO DAILY atorvastatin 20 mg tablet 20 mg PO DAILY Patient Comments: Take 1 tablet by mouth daily at bedtime. For cholesterol. furosemide 20 mg tablet 20 mg PO DAILY Patient Comments: Take 1 tablet by mouth once daily. metformin 500 mg tablet extended release 24 hr 500 mg PO DAILY Patient Comments: Take 1 tablet by mouth daily with breakfast. carvedilol [Coreg] 3.125 mg tablet 3.125 mg PO BID Qty: 180 3RF Rx Instructions: must administer with a meal/food Xarelto 20 mg tablet 20 mg PO QDAY Qty: 30 12RF Primary Care Provider: Enrrique Ryan Referrals: Enrrique Ryan MD [Primary Care Provider] - Activity Restrictions/Additional Instructions: Your work-up today showed no acute findings and your heart rhythm is at her baseline which is atrial fibrillation but rate is controlled. I do feel your symptoms are related to acute anxiety based on the situation that has occurred this evening. You may take your home lorazepam as directed to help control any further anxiety symptoms and if necessary you may add [id number] Benadryl. If you feel that your heart is racing and persistently elevated at a value of approximately 150 or you have difficulty standing or walking or any further concerns please return to the ER for repeat evaluation. Disposition Disposition: Home, Self Care
[2023-04-24 01:03] VITALS: PULSE 96; RESP 16; O2SAT 97
== END 2023-04-24 01:04 | disposition home or self-care (01) ==
PROVIDERS: Emergency Provider Emergency Medicine; PCP Family Medicine; Visit Provider Emergency Medicine
DX: R42 Dizziness and giddiness (principal); I48.19 Other persistent atrial fibrillation; E11.9 Type 2 diabetes mellitus without complications; Z87.891 Personal history of nicotine dependence; I10 Essential (primary) hypertension; E78.5 Hyperlipidemia, unspecified; Z79.01 Long term (current) use of anticoagulants; Z79.899 Other long term (current) drug therapy; F41.9 Anxiety disorder, unspecified; Z79.82 Long term (current) use of aspirin; Z79.84 Long term (current) use of oral hypoglycemic drugs; F43.20 Adjustment disorder, unspecified
CPT/HCPCS: 80048; 83735; 85025; 85610; 85730; 93005; 96374; 99284; A4216

== ENCOUNTER → 2023-12-03 | Outpatient (CLI) | payer MEDICARE, SELFPAY ==
--- NOTE | 2023-12-03 14:00 | RAD_ITS ---
STUDY: X-RAY CHEST REASON FOR EXAM: Male, 83 years old. Cough and dyspnea. TECHNIQUE: Frontal and lateral views of the chest. COMPARISON: January 09, 2017 FINDINGS: The lungs are clear and expanded. There is no demonstrated pleural abnormality. Stable mild cardiomegaly. Normal mediastinum and rigoberto. Normal visualized pulmonary arteries. Aortic tortuosity with calcification unchanged. Stable mild diffuse thoracic spondylosis. Normal visualized ribs, clavicles, and shoulders. No abnormality of the visualized soft tissue structures of the upper abdomen. RAD/Chest PA and Lateral IMPRESSION: Stable cardiomegaly with no acute or active cardiopulmonary disease. Electronically Signed: Kennedy Montilla MD at 9:31 EDT ,
[2023-12-03 15:11] LABS: Absolute Lymphocyte Count 1.34 X10^3/uL (0.83-4.51); Absolute Neutrophil Count 6.1 X10^3/uL (2.0-7.7); Basophil% 1.2 % (0-1); Eosinophil# 0.46 X10^3/uL; Eosinophils% 5.3 % (0-5); Hematocrit 46.3 % (40-54); Hemoglobin 15.3 g/dL (13.0-16.5); Lymphocyte # 1.34 X10^3/ul (0.83-4.51); Lymphocyte % 15.5 % (19-41); Mean Corpuscular Hgb 31.1 pg (27.0-32.0); Mean Corpuscular Volume 94.1 fL (80-94); Mean Platelet Vol. 9.9 fl (6.2-12.0); Monocyte# 0.65 X10^3/uL; Monocyte% 7.5 % (0-10); NRBC Flagged by Analyzer 0 % (0-5); Neutrophil # 6.08 X10^3/uL (2.7-7.7); Neutrophil % 70.2 % (47-70); Platelet Count 209 K/mm3 (150-450); RBC Distribution Width CV 13.7 % (11.6-14.6); RBC Distribution Width SD 47.6 fl (35.1-43.9); Red Blood Count 4.92 M/mm3 (4.6-6.2); White Blood Count 8.7 K/mm3 (4.4-11.0)
[2023-12-03 15:41] LABS: Anion Gap 7 (5-15); BUN 17 mg/dL (7-18); BUN/Creat Ratio 19.3 RATIO (10-20); Calcium,Total 9.2 mg/dL (8.5-10.1); Chloride 107 mmol/L (98-107); Creatinine, Serum 0.88 mg/dL (0.70-1.30); EST Glomerular Filtration Rate 87 mL/min (>60); Est Glom Filt Rate - Afr Amer 106 mL/min (>60); Glucose 117 mg/dL (74-106); Potassium 4.1 mmol/L (3.5-5.1); Sodium Level 138 mmol/L (136-145); Thyroid Stim Hormone (TSH) 1.13 uIU/mL (0.358-3.74)
[2023-12-03 15:44] LABS: BNP,B-Type NATRIURETIC PEPTIDE 143.1 pg/mL (0-100)
== END | disposition home or self-care (01) ==
LOC: RAD 13:57
PROVIDERS: PCP Family Medicine; Referring Provider Nurse Practitioner Gerontology; Visit Provider Nurse Practitioner Gerontology
DX: R06.00 Dyspnea, unspecified (principal); R53.83 Other fatigue
CPT/HCPCS: 36415; 71046; 80048; 83880; 84443; 85025

== ENCOUNTER → 2023-12-26 | Outpatient (CLI) | payer MEDICARE, SELFPAY ==
--- NOTE | 2023-12-26 13:05 | ECHOD_ITS ---
Reason For Study: Dyspnea Procedure This was a 2D Doppler, Color Flow transthoracic echocardiogram. Exam performed in department. Left Ventricle Normal LV size. Left ventricular systolic function is normal. The left ventricular ejection fraction is 55 %. No regional wall motion abnormalities noted. Right Ventricle Normal RV size. Normal systolic function. Atria The left atrium is moderately enlarged. The right atrium is moderately enlarged. Mitral Valve There is mild mitral annular calcification. Mild-Moderate (1-2+) anteriorly directed mitral valve insufficiency. Tricuspid Valve Normal tricuspid valve. Moderate (2+) tricuspid valve insufficiency. Pulmonary artery systolic pressure is 45 mmHg. Mild pulmonary hypertension. Aortic Valve Trisinus/trileaflet aortic valve. Mild diffuse aortic valve thickening. Mild (1+) aortic valve insufficiency. Pulmonic Valve Normal pulmonic valve. Great Vessels Mildly dilated aortic root. The pulmonary artery is normal size. Inferior vena cava collapse with respiration. Pericardium/Pleural No pericardial effusion. Large left upper quadrant mass is noted. Unclear etiology. MMode/2D Measurements & Calculations LVIDd: 4.8 cm IVSd: 1.1 cm Ao root diam: 4.0 cm LVIDs: 3.0 cm LVPWd: 1.2 cm RVDd: 4.3 cm FS: 37.5 % LAV(MOD-bp): 77.4 ml LVAd ap4: 22.6 cm2 SV(MOD-sp4): 37.6 ml LAV(MOD-bp) Indexed: 36.3 ml/m2 LVLd ap4: 6.4 cm LAV(MOD-sp2): 70.5 ml EDV(MOD-sp4): 65.9 ml LAV(MOD-sp4): 78.0 ml EDV(sp4-el): 67.2 ml LVAs ap4: 14.1 cm2 LVLs ap4: 5.8 cm ESV(MOD-sp4): 28.3 ml ESV(sp4-el): 28.7 ml EF(MOD-sp4): 57.0 % EF(sp4-el): 57.3 % SV(sp4-el): 38.5 ml LA A4 area: 25.9 cm2 LA dimension(2D): 4.8 cm RA A4 area: 29.6 cm2 TAPSE: 1.8 cm Doppler Measurements & Calculations MV E max garry: 96.5 cm/sec Lat Peak E' Garry: 12.5 cm/sec Med Peak E' Garry: 7.5 cm/sec E/E' lat: 7.7 E/E' med: 12.9 Ao V2 max: 157.9 cm/sec AI max garry: 316.1 cm/sec LV V1 max: 83.0 cm/sec Ao max P.1 mmHg AI max P.0 mmHg LV V1 max P.8 mmHg Ao V2 mean: 112.9 cm/sec LV V1 mean P.4 mmHg Ao mean P.8 mmHg AI dec slope: 161.3 cm/sec2 LV V1 mean: 56.9 cm/sec Ao V2 VTI: 29.8 cm AI P1/2t: 573.9 msec LV V1 VTI: 15.3 cm AV (velocity ratio): 0.51 PA V2 max: 80.5 cm/sec TR max garry: 321.1 cm/sec TR max P.2 mmHg ECHO/Echo Complete Interpretation Summary The left ventricular ejection fraction is 55 %. Left ventricular systolic function is normal. Normal LV size. The left atrium is moderately enlarged. The right atrium is moderately enlarged. Large left upper quadrant mass is noted. Unclear etiology. Pulmonary artery systolic pressure is 45 mmHg. Mild pulmonary hypertension. Ordering Physician: Lola Sahni Referring Physician: Enrrique Ryan Performed By: Ruth Jean-Baptiste, HILLARY, RVT
--- NOTE | 2023-12-26 13:05 | CDU_ITS ---
Reason For Study: DIZZINESS Rt. Velocities/BP Lt. Velocities/BP Prox CCA 95.7/12.6 cm/sec. Prox CCA 73.6/13.4 cm/sec. Mid CCA 39.8/8.4 cm/sec. Mid CCA 52.7/8.5 cm/sec. Dist CCA 46.8/9.2 cm/sec. Dist CCA 60.0/13.4 cm/sec. Prox ICA 52.3/14.9 cm/sec. Prox ICA 141.7/37.6 cm/sec. Mid ICA 73.2/19.3 cm/sec. Mid ICA 91.6/19.2 cm/sec. Dist ICA 49.7/11.9 cm/sec. Dist ICA 64.6/19.2 cm/sec. Rt. ICA/CCA = 73.2/39.8=1.8. Lt. ICA/CCA = 141.7/52.7=2.7. Prox ECA 105.1/16.0 cm/sec. Prox ECA 78.1/9.3 cm/sec. Rt. Vert. 22.6/5.0 cm/sec. Lt. Vert. 42.4/15.0 cm/sec. Right Extracranial There is heterogeneous, irregular atherosclerotic plaque noted in the right common carotid artery. There is heterogeneous, irregular atherosclerotic plaque noted in the right internal carotid artery. There is heterogeneous, irregular atherosclerotic plaque noted in the right external carotid artery. Antegrade flow is noted in the right vertebral artery. Left Extracranial There is heterogeneous, smooth atherosclerotic plaque noted in the left common carotid artery. There is heterogeneous, irregular atherosclerotic plaque noted in the left internal carotid artery. The atherosclerotic plaque causes acoustic shadowing. There is heterogeneous, irregular atherosclerotic plaque noted in the left external carotid artery. Antegrade flow is noted in the left vertebral artery. Procedure Carotid Duplex [id number]. This is a Carotid Duplex examination using B-mode, color flow and specral Doppler. Exam performed in department. VL/Carotid Duplex Ultrasound Interpretation Summary Mild (<50%) stenosis right extracranial internal carotid. Moderate (50-69%) stenosis left extracranial internal carotid. Patent and antegrade vertebrals bilaterally. Ordering Physician: Lola Sahni Referring Physician: Enrrique Ryan Performed By: Alesha Cottrell RDCS, RVT
== END | disposition home or self-care (01) ==
PROVIDERS: PCP Family Medicine; Referring Provider Nurse Practitioner Gerontology; Visit Provider Nurse Practitioner Gerontology
DX: R06.00 Dyspnea, unspecified (principal); R42 Dizziness and giddiness
CPT/HCPCS: 93306; 93880

== ENCOUNTER 2024-02-04 20:07 | Emergency (ER) | payer MEDICARE, SELFPAY ==
[2024-02-04 20:08] VITALS: BP 125/88; PULSE 63; RESP 16; TEMP 36.4; O2SAT 100; BMI 27.7
[2024-02-04 21:08] VITALS: BP 151/85; PULSE 85; RESP 14; O2SAT 99
--- NOTE | 2024-02-04 21:19 | ED.RN ---
Per Dr. Issa crawford.
--- NOTE | 2024-02-04 21:25 | CT_ITS ---
EXAM: CT ABDOMEN AND PELVIS WITH INTRAVENOUS CONTRAST CLINICAL INDICATION: hx of adrenal tumor TECHNIQUE: Helically acquired images were obtained of the abdomen and pelvis with intravenous contrast. This CT exam was performed using one or more of the following dose reduction techniques: automated exposure control, adjustment of the mA and/or kV according to patient size, and/or use of iterative reconstruction technique. CONTRAST: IV 100mL Isovue-300 COMPARISON: No relevant prior studies available. FINDINGS: LOWER THORAX: There are [id number] coronary artery calcifications present. Lung bases are clear. No cardiomegaly. No significant pericardial effusion. ABDOMEN: LIVER: Unremarkable. Homogeneous. No focal mass. GALLBLADDER AND BILE DUCTS: Unremarkable. No calcified gallstones. No gallbladder distention or wall edema. No intra- or extrahepatic biliary ductal dilation. PANCREAS: Unremarkable. No focal cystic or solid mass. SPLEEN: Unremarkable. Normal size without focal cystic or solid mass. ADRENALS: There is a 21.9 x 16.6 x 20.6 cm low-density mass in the left upper quadrant. This appears to be primarily cystic although there does appear to be solid component within the periphery as well as calcifications appears to be a large left adrenal mass. If no history of malignancy, consider surgical resection. Otherwise, consider PET-CT or biopsy. Also consider preoperative biochemical assays to determine functional status and exclude pheochromocytoma. KIDNEYS AND URETERS: There are low-density masses in both kidneys compatible with simple cysts. No follow-up imaging is necessary. No hydronephrosis. STOMACH AND BOWEL: There is sigmoid diverticulosis with no evidence of diverticulitis. No stomach or bowel distention. PELVIS: APPENDIX: No evidence of acute appendicitis. BLADDER: Unremarkable. REPRODUCTIVE: Unremarkable as visualized. No mass. ABDOMEN and PELVIS: INTRAPERITONEAL SPACE: Unremarkable. No ascites or other fluid collection. No free air. BONES/JOINTS: Unremarkable. No suspicious lytic or blastic abnormality. SOFT TISSUES: Unremarkable. No discrete abdominal or pelvic wall hernia. VASCULATURE: See above. LYMPH NODES: Unremarkable. No enlarged lymph nodes. CT/Abdomen/Pelvis W IV Cont ONLY IMPRESSION: Large predominantly low density mass centrally with soft tissue calcifications peripherally in the left upper quadrant which appears to represent a large adrenal mass. Further evaluation with PET CT scan or MRI may be beneficial. No other abnormalities are identified. Electronically Signed: Michael Mcmahon MD at 22:53 EDT ,
--- NOTE | 2024-02-04 21:25 | CT_ITS ---
EXAM: CT HEAD WITHOUT INTRAVENOUS CONTRAST CLINICAL INDICATION: ams TECHNIQUE: Multiple axial images were obtained of the head without intravenous contrast. This CT exam was performed using one or more of the following dose reduction techniques: automated exposure control, adjustment of the mA and/or kV according to patient size, and/or use of iterative reconstruction technique. COMPARISON: No relevant prior studies available. FINDINGS: BRAIN AND EXTRA-AXIAL SPACES: Unremarkable. No intra- or extra-axial hemorrhage. No evidence of acute infarct. No intracranial mass or mass effect. There is preservation of the vera/white matter interface. Posterior fossa structures are unremarkable. Ventricles are appropriate for age. No hydrocephalus. Basal cisterns are patent. BONES/JOINTS: Unremarkable. No discrete lytic or blastic abnormalities. SINUSES: Unremarkable as visualized. Clear. MASTOID AIR CELLS: Unremarkable. Clear. ORBITS: Visualized globes, extraocular muscles, optic nerves and retrobulbar fat appear unremarkable. CT/Brain/Head without Contrast IMPRESSION: Negative head/brain CT without intravenous contrast. Electronically Signed: Michael Mcmahon MD at 22:54 EDT ,
[2024-02-04 21:40] LABS: Absolute Lymphocyte Count 1.92 X10^3/uL (0.83-4.51); Absolute Neutrophil Count 4.6 X10^3/uL (2.0-7.7); Basophil# 0.09 X10^3/uL; Basophil% 1.1 % (0-1); Eosinophil# 1.33 X10^3/uL; Eosinophils% 15.6 % (0-5); Hematocrit 48.7 % (40-54); Hemoglobin 16.7 g/dL (13.0-16.5); Lymphocyte # 1.92 X10^3/ul (0.83-4.51); Lymphocyte % 22.5 % (19-41); Mean Corp Hgb Conc 34.3 g/dL (32-36); Mean Corpuscular Hgb 31.2 pg (27.0-32.0); Mean Corpuscular Volume 90.9 fL (80-94); Mean Platelet Vol. 9.6 fl (6.2-12.0); Monocyte# 0.55 X10^3/uL; Monocyte% 6.4 % (0-10); NRBC Flagged by Analyzer 0 % (0-5); Neutrophil # 4.61 X10^3/uL (2.7-7.7); Neutrophil % 53.8 % (47-70); POSITIVE MORPHOLOGY YES; Platelet Count 234 K/mm3 (150-450); RBC Distribution Width CV 14.4 % (11.6-14.6); RBC Distribution Width SD 48.1 fl (35.1-43.9); Red Blood Count 5.36 M/mm3 (4.6-6.2); White Blood Count 8.6 K/mm3 (4.4-11.0)
[2024-02-04 21:41] LABS: Differential Indicated SCAN CRITERIA MET
[2024-02-04] MEDS: 0.9% Normal Saline (1000mL) 1,000 ML 999 ML IV (21:46)
[2024-02-04 21:52] LABS: Mucous, Urine 0 SEEN /hpf (<or=2+); Squamous Epithelial Cells - UA 0 SEEN /hpf (0-5)
[2024-02-04 22:00] VITALS: BP 153/94; PULSE 83; RESP 18; O2SAT 98
[2024-02-04 22:00] LABS: AST(SGOT) 14 U/L (15-37); Alanine Aminotransfer ALT/SGPT 20 U/L (16-61); Albumin, Serum 3.6 g/dL (3.2-5.0); Alkaline Phosphatase 98 U/L (45-117); Anion Gap 10 (5-15); BUN 13 mg/dL (7-18); BUN/Creat Ratio 15.5 RATIO (10-20); Calcium,Total 9.9 mg/dL (8.5-10.1); Chloride 106 mmol/L (98-107); Creatinine, Serum 0.84 mg/dL (0.70-1.30); EST Glomerular Filtration Rate 92 mL/min (>60); Est Glom Filt Rate - Afr Amer 112 mL/min (>60); Estimated Creatinine Clearance 68.67 ml/min; Globulin 3.7 g/dL (2.2-4.2); Glucose 146 mg/dL (74-106); Lipase 35 U/L (13-75); Protein, Total 7.3 g/dL (6.4-8.2); Sodium Level 137 mmol/L (136-145)
--- NOTE | 2024-02-04 22:01 | RAD_ITS ---
EXAM: XR CHEST, 1 VIEW CLINICAL INDICATION: ams TECHNIQUE: Frontal view of the chest. COMPARISON: 12/03/2023 FINDINGS: LUNGS AND PLEURAL SPACES: Unremarkable. No consolidation or edema. No pneumothorax. No effusion. HEART: Unremarkable. Cardiac silhouette not enlarged. MEDIASTINUM: Central airways and mediastinal contour are unremarkable. BONES/JOINTS: Unremarkable. No acute fracture. SOFT TISSUES: Unremarkable. RAD/Chest 1 View (Portable) IMPRESSION: No radiographic evidence of acute cardiopulmonary disease. Electronically Signed: Michael Mcmahon MD at 22:49 EDT ,
[2024-02-04 22:23] LABS: Color, Urine Yellow (Yellow); Glucose, Dipstick Normal (Normal); Ketone-Dipstick 5 mg/dl (Negative); Leukocyte Esterase-Dipstick 25 /ul (Negative); Nitrite-Dipstick Negative (Negative); Occult Blood-Urine 25 /ul (Negative); Protein-Dipstick 15 mg/dl (Negative); Urine Bilirubin Dipstick Negative (Negative); Urine Clarity Clear (Clear); Urine Urobilinogen Normal (Normal)
[2024-02-04 22:54] LABS: Bacteria RARE /hpf (None Seen); Red Blood Cells-Urine 0-5 SEEN /hpf (0-5); White Blood Cells 0-5 SEEN /hpf (0-5)
[2024-02-04 22:57] LABS: Differential Comment SCANNED
[2024-02-04 23:00] VITALS: BP 141/78; PULSE 100; RESP 18; O2SAT 97
[2024-02-04 23:44] VITALS: BP 145/88; PULSE 78; RESP 18; O2SAT 97
--- NOTE | 2024-02-04 23:44 | ED.VIS.CHEST ---
HPI History of Present Illness Chief Complaint: Mental Health Narrative Narrative: Patient is a 83-year-old male past medical history anxiety, depression, type 2 diabetes, hyperlipidemia,, atrial fibrillation on Xarelto adrenal mass who presents to the emergency department with a chief complaint of depression and suicidal ideations. According to the crisis individual that evaluated him prior to having EMS have him brought here she states that he has a known adrenal mass and scheduled to have a surgery noted in approximately 4 weeks. She notes that he recently lost his approximately 2 weeks ago and ever since then states that he has been very depressed. According to her they noted that the patient did have guns in the house and the children notified her that he asked them to take the guns out of the house. When asked patient about this he states that he had friends that had weapons in the house in the past and had shot himself so he did not want to even have any thoughts of this. Patient according to the daughter at bedside had now for approximately 2 weeks straight had made various comments about dying and wanting to be with his . 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 [facility] Medical History Essential hypertension Depression Anxiety BPH w urinary obs/LUTS Rosacea Type 2 diabetes mellitus without complications Hyperlipidemia Obesity Bilateral carotid artery stenosis Persistent atrial fibrillation Home Medications ?Medication ?Instructions ?Recorded ?Last Taken ?Type clonidine HCl 0.1 mg tablet 0.1 mg PO DAILY 11/29/16 02/12/17 History lisinopril 40 mg tablet 40 mg PO DAILY 11/29/16 02/12/17 History lorazepam 0.5 mg tablet 0.5 mg PO DAILY PRN PRN Anxiety 01/13/17 Unknown History allopurinol 100 mg tablet 100 mg PO DAILY 03/31/22 Unknown History amlodipine 10 mg tablet 5 mg PO DAILY 12/03/23 Unknown History aspirin 81 mg tablet,delayed 325 mg PO .2/weekly 12/03/23 Unknown History release (Adult Aspirin Regimen) fluticasone propionate 50 1 spray intranasal DAILY 12/03/23 Unknown History mcg/actuation nasal spray,suspension (Flonase Allergy Relief) furosemide 20 mg tablet 20 mg PO DAILY #30 tabs 12/03/23 Unknown Rx indomethacin 50 mg capsule 50 mg PO ONCE 12/03/23 Unknown History metformin 500 mg tablet 500 mg PO DAILY 12/03/23 Unknown History rivaroxaban 20 mg tablet (Xarelto) 20 mg PO QDAY #30 tabs 12/10/23 Unknown Rx Allergy/AdvReac Type Severity Reaction Status Date / Time Cephalosporins Allergy Rash Verified 02/04/24 20:08 doxycycline Allergy Rash Verified 02/04/24 20:08 simvastatin (From Zocor) AdvReac Intermediate Myalgias Verified 02/04/24 20:08 Family History Daughter Atrial tachycardia RFA Brother CAD (coronary artery disease) Surgical History H/O left knee surgery History of tonsillectomy and adenoidectomy History of cardioversion (02/12/17) History of left heart catheterization (01/16/17) Social History household members: spouse Smoking Status: Former smoker how long ago did patient quit smokin years ago alcohol intake: never substance use type: does not use caffeine: Yes Type: coffee Number of servings: 2 ROS ROS ED ROS Narrative Constitutional: Denies headaches, Melvin, it is, fevers, chills Eyes: Denies double vision blurry vision change in vision Cardiovascular: Denies chest pain or palpitations Respiratory: Denies coughing wheezing shortness of breath Abdomen: Complains of early satiety, states that he has adrenal mass that is noted to be removed here in approximately 4 weeks as noted in HPI denies any vomiting or diarrhea : Denies any urinary symptoms Neurological: Denies any numbness, weakness, tingling Psychiatric: Complains of multiple gestures as noted above in HPI about wanting to and be with his denies homicidal ideation Musculoskeletal: Denies back pain Skin: Denies rashes or lesions EXAM Physical Exam Narrative Exam Narrative: General: Patient lying in bed rest comfortably did not appear to be in acute distress Head: Atraumatic, normocephalic Eyes: PERRL bilaterally, EOMI bilateral, no conjunctival injection noted Neck: Soft, supple, trach midline Cardiovascular: Regular rate and rhythm no murmurs gallops rubs noted Respiratory: Clear to auscultation bilaterally no rales rhonchi wheeze noted Abdomen: Soft, nontender to palpation, no rebound or guarding on exam, bowel sounds present helps for Extremities: +5/5 strength noted in the bilateral upper and lower extremities, no pedal edema no exam Neurological: Patient was following commands knew that he was at [facility] year is 2023 Skin: Warm, dry, tact Const Vital Signs: 02/04/24 20:08 02/04/24 21:08 02/04/24 22:00 Temperature 97.6 F L Temperature Source Temporal Pulse Rate 63 85 83 Respiratory Rate 16 14 18 Blood Pressure 125/88 H 151/85 H 153/94 H Blood Pressure Mean 100 107 113 Pulse Ox 100 99 98 Oxygen Delivery Method Room Air Room Air 02/04/24 23:00 02/04/24 23:44 Temperature Temperature Source Pulse Rate 100 78 Respiratory Rate 18 18 Blood Pressure 141/78 H 145/88 H Blood Pressure Mean 99 107 Pulse Ox 97 97 Oxygen Delivery Method Room Air Room Air MDM MDM MDM Narrative Medical decision making narrative: Patient is a 83-year-old male who presented to the emerged part with chief complaint of needing medical evaluation secondary to suicidal ideations. Patient will have workup performed here on the differential diagnose includes but #2 UTI, depression, intracranial mass. Once workup is obtained reviewed he will be reevaluated. Patient CBC Was reviewed and was largely unremarkable no evidence of leukocytosis white blood count normal 8.6, hemoglobin stable at 16.4, platelet count normal at 234. Patient's sodium normal at 137, potassium normal at 4, creatinine normal at 0.84. Patient's AST and ALT were 14 and 20 respectively. Patient lipase normal at 35, urinalysis did not reveal any evidence of infection. Patient's CT head and brain without contrast showed no acute intracranial abnormalities. Patient's x-ray of his chest was reviewed and showed no acute cardiopulmonary findings. Patient CT abdomen pelvis with IV contrast reviewed and showed the large known adrenal mass. On reevaluation of the patient his son was at bedside and while discussing the results with him and was to his understanding after crisis had a medically evaluated that the patient would likely return home. I discussed with the son at bedside that his sister had different thoughts on this. I had further discussion with them and was agreed upon that he will be reevaluated by the crisis team as determination as whether he needs placed or he can be safety planned. They are agreeable with this plan. I did sign out the case to oncoming provider who will follow-up on this to make ultimate disposition see their note for further details. Lab Data Labs: Laboratory Results - last 24 hr 02/04/24 02/04/24 21:35 21:46 WBC 8.6 RBC 5.36 Hgb 16.7 H Hct 48.7 MCV 90.9 MCH 31.2 MCHC 34.3 RDW Std Deviation 48.1 H RDW Coeff of Alli 14.4 Plt Count 234 MPV 9.6 Immature Gran % (Auto) 0.600 Neut % (Auto) 53.8 Lymph % (Auto) 22.5 Isabela % (Auto) 6.4 Eos % (Auto) 15.6 H Baso % (Auto) 1.1 H Absolute Neuts (auto) 4.6 Absolute Lymphs (auto) 1.92 Nucleated RBC % 0 Differential Comment SCANNED Sodium 137 Potassium 4.0 Chloride 106 Carbon Dioxide 21.0 Anion Gap 10 BUN 13 Creatinine 0.84 Estim Creat Clear Calc 68.67 Est GFR (MDRD) Af Amer 112 Est GFR (MDRD) Non-Af 92 BUN/Creatinine Ratio 15.5 Glucose 146 H Calcium 9.9 Total Bilirubin 0.70 AST 14 L ALT 20 Alkaline Phosphatase 98 Total Protein 7.3 Albumin 3.6 Globulin 3.7 Albumin/Globulin Ratio 1.0 Lipase 35 Urine Color Yellow Urine Clarity Clear Urine pH 6.0 Ur Specific [place] 1.010 Urine Protein 15 H Urine Glucose (UA) Normal Urine Ketones 5 H Urine Occult Blood 25 H Urine Nitrite Negative Urine Bilirubin Negative Urine Urobilinogen Normal Ur Leukocyte Esterase 25 H Urine RBC 0-5 SEEN Urine WBC 0-5 SEEN Ur Squamous Epith Cells 0 SEEN Urine Bacteria RARE Urine Mucus 0 SEEN Radiography Diagnostic Testing: Clinical Impression(s) from Imaging Studies Abdomen/Pelvis CT 02/04/24 21:25 IMPRESSION: Large predominantly low density mass centrally with soft tissue calcifications peripherally in the left upper quadrant which appears to represent a large adrenal mass. Further evaluation with PET CT scan or MRI may be beneficial. No other abnormalities are identified. Electronically Signed: Michael Mcmahon MD at 22:53 EDT , Brain CT 02/04/24 21:25 IMPRESSION: Negative head/brain CT without intravenous contrast. Electronically Signed: Michael Mcmahon MD at 22:54 EDT , Chest X-Ray 02/04/24 22:01 IMPRESSION: No radiographic evidence of acute cardiopulmonary disease. Electronically Signed: Michael Mcmahon MD at 22:49 EDT , Discharge Plan Triage Chief Complaint: Mental Health ED Provider: Isaac Parsons Dx/Rx/DC Orders Prescriptions: No Action amlodipine 10 mg tablet 5 mg PO DAILY fluticasone propionate [Flonase Allergy Relief] 50 mcg/actuation spray,suspension 1 spray intranasal DAILY Rx Instructions: administer into each nostril indomethacin 50 mg capsule 50 mg PO ONCE Rx Instructions: administer with food or milk aspirin [Adult Aspirin Regimen] 81 mg tablet,delayed release (DR/EC) 325 mg PO .2/weekly metformin 500 mg tablet 500 mg PO DAILY clonidine HCl 0.1 MG tablet 0.1 mg PO DAILY lisinopril 40 MG tablet 40 mg PO DAILY lorazepam 0.5 MG tablet 0.5 mg PO DAILY PRN PRN (Reason: Anxiety) allopurinol 100 mg Tablet 100 mg PO DAILY furosemide 20 mg tablet 20 mg PO DAILY Qty: 30 0RF Xarelto 20 mg tablet 20 mg PO QDAY Qty: 30 12RF Primary Care Provider: Enrrique Ryan Referrals: Enrrique Ryan MD [Primary Care Provider] - Print Language: Kiswahili Disposition Disposition: Acute Care Hospital
[2024-02-05 00:33] VITALS: BP 150/74; PULSE 82; RESP 19; TEMP 36.6; O2SAT 97
== END 2024-02-05 00:34 | disposition home or self-care (01) ==
PROVIDERS: Emergency Provider Emergency Medicine; PCP Family Medicine; Visit Provider Emergency Medicine
DX: F32.A Depression, unspecified (principal); I48.19 Other persistent atrial fibrillation; E11.9 Type 2 diabetes mellitus without complications; I10 Essential (primary) hypertension; F41.9 Anxiety disorder, unspecified; E78.5 Hyperlipidemia, unspecified; Z87.891 Personal history of nicotine dependence; Z79.01 Long term (current) use of anticoagulants; R45.851 Suicidal ideations; Z79.899 Other long term (current) drug therapy; Z79.82 Long term (current) use of aspirin; Z79.84 Long term (current) use of oral hypoglycemic drugs
CPT/HCPCS: 70450; 71045; 74177; 80053; 81001; 83690; 85025; 96360; 96361; 99283; J7030; Q9967; A4216

== ENCOUNTER → 2024-12-21 | Outpatient (CLI) | payer MEDICARE, SELFPAY ==
--- NOTE | 2024-12-21 10:55 | CDU_ITS ---
Reason For Study Reason For Study: CAROTID ARTERY DISEASE Rt. Velocities/BP Lt. Velocities/BP Prox CCA 81.8/15.5 cm/sec. Prox CCA 106.3/9.3 cm/sec. Mid CCA 60.0/9.5 cm/sec. Mid CCA 56.3/8.4 cm/sec. Dist CCA 64.4/12.7 cm/sec. Dist CCA 51.1/11.9 cm/sec. Prox ICA 95.2/34.7 cm/sec. Prox ICA 87.5/28.1 cm/sec. Mid ICA 64.2/21.5 cm/sec. Mid ICA 42.3/20.5 cm/sec. Dist ICA 48.5/12.7 cm/sec. Dist ICA 34.8/13.5 cm/sec. Rt. ICA/CCA = 95.2/60.0=1.6. Lt. ICA/CCA = 87.5/56.3=1.6. Prox ECA 137.4/5.7 cm/sec. Prox ECA 76.0/6.0 cm/sec. Rt. Vert. 27.1/0.0 cm/sec. Lt. Vert. 43.3/10.1 cm/sec. Right Extracranial There is heterogeneous, irregular atherosclerotic plaque noted in the right common carotid artery. There is heterogeneous, irregular atherosclerotic plaque noted in the right internal carotid artery. There is heterogeneous, irregular atherosclerotic plaque noted in the right external carotid artery. Antegrade flow is noted in the right vertebral artery. Abnormal Waveform Noted. Left Extracranial There is heterogeneous, irregular atherosclerotic plaque noted in the left common carotid artery. There is heterogeneous, irregular atherosclerotic plaque noted in the left internal carotid artery. The atherosclerotic plaque causes acoustic shadowing. There is heterogeneous, irregular atherosclerotic plaque noted in the left external carotid artery. Antegrade flow is noted in the left vertebral artery. Procedure Carotid Duplex 77512. This is a Carotid Duplex examination using B-mode, color flow and specral Doppler. Exam performed in department. VL/Carotid Duplex Ultrasound Interpretation Summary Mild (<50%) stenosis right extracranial internal carotid. Mild (<50%) stenosis left extracranial internal carotid. The Right vertebral is patent and antegrade with high resistance suggesting mor e distal stenosis/occlusion. The Left vertebral is patent and antegrade. Ordering Physician: Rosalino Jean-Baptiste Referring Physician: Enrrique Ryan Performed By: Joss Molina RVT
--- NOTE | 2024-12-21 10:55 | CDU_ITS ---
Reason For Study Reason For Study: CAROTID ARTERY DISEASE Rt. Velocities/BP Lt. Velocities/BP Prox CCA 81.8/15.5 cm/sec. Prox CCA 106.3/9.3 cm/sec. Mid CCA 60.0/9.5 cm/sec. Mid CCA 56.3/8.4 cm/sec. Dist CCA 64.4/12.7 cm/sec. Dist CCA 51.1/11.9 cm/sec. Prox ICA 95.2/34.7 cm/sec. Prox ICA 87.5/28.1 cm/sec. Mid ICA 64.2/21.5 cm/sec. Mid ICA 42.3/20.5 cm/sec. Dist ICA 48.5/12.7 cm/sec. Dist ICA 34.8/13.5 cm/sec. Rt. ICA/CCA = 95.2/60.0=1.6. Lt. ICA/CCA = 87.5/56.3=1.6. Prox ECA 137.4/5.7 cm/sec. Prox ECA 76.0/6.0 cm/sec. Rt. Vert. 27.1/0.0 cm/sec. Lt. Vert. 43.3/10.1 cm/sec. Right Extracranial There is heterogeneous, irregular atherosclerotic plaque noted in the right common carotid artery. There is heterogeneous, irregular atherosclerotic plaque noted in the right internal carotid artery. There is heterogeneous, irregular atherosclerotic plaque noted in the right external carotid artery. Antegrade flow is noted in the right vertebral artery. Abnormal Waveform Noted. Left Extracranial There is heterogeneous, irregular atherosclerotic plaque noted in the left common carotid artery. There is heterogeneous, irregular atherosclerotic plaque noted in the left internal carotid artery. The atherosclerotic plaque causes acoustic shadowing. There is heterogeneous, irregular atherosclerotic plaque noted in the left external carotid artery. Antegrade flow is noted in the left vertebral artery. Procedure Carotid Duplex [id number]. This is a Carotid Duplex examination using B-mode, color flow and specral Doppler. Exam performed in department. VL/Carotid Duplex Ultrasound Interpretation Summary Mild (<50%) stenosis right extracranial internal carotid. Mild (<50%) stenosis left extracranial internal carotid. The Right vertebral is patent and antegrade with high resistance suggesting mor e distal stenosis/occlusion. The Left vertebral is patent and antegrade. Ordering Physician: Rosalino Jean-Baptiste Referring Physician: Enrrique Ryan Performed By: Joss Molina RVT
== END | disposition home or self-care (01) ==
LOC: CVS 10:54
PROVIDERS: PCP Family Medicine; Referring Provider Nurse Practitioner Family; Visit Provider Nurse Practitioner Family
DX: I65.23 Occlusion and stenosis of bilateral carotid arteries (principal)
CPT/HCPCS: 93880

== ENCOUNTER 2025-01-13 23:25 | Emergency (ER) | payer MEDICARE, SELFPAY ==
[2025-01-13 23:27] VITALS: BP 167/76; PULSE 98; RESP 18; TEMP 36.3; O2SAT 98; BMI 31.2
--- NOTE | 2025-01-13 23:36 | EKG12_ITS ---
Test Reason : DYSRHYTHMIA Blood Pressure : */* mmHG Vent. 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
--- NOTE | 2025-01-13 23:38 | EX.ED.DYSGE1 ---
HPI History of Present Illness Chief Complaint: Abn Labs Narrative Narrative: 84-year-old male past medical history of hypertension, coronary artery disease, depression, atrial fibrillation, presents with abnormal laboratory values. He states that he has been feeling weak and depressed for over a year since his . He was at his primary care provider's office this morning and had labs drawn at 9. He got a call this evening that his potassium was elevated above 6 and that he should come to the emergency department. He denies any chest pain or shortness of breath, no exacerbating or alleviating factors. No history of renal failure or chronic kidney disease. He does take furosemide intermittently when he needs it for edema. [facility] Medical History Skin cancer of scalp Essential hypertension Depression Anxiety BPH w urinary obs/LUTS Rosacea Type 2 diabetes mellitus without complications Hyperlipidemia Obesity Bilateral carotid artery stenosis Persistent atrial fibrillation Home Medications Medication Instructions Recorded Last Taken Type clonidine HCl 0.1 mg tablet 0.1 mg PO QHS 11/29/16 02/12/17 History fluticasone propionate 50 1 spray intranasal DAILY 12/03/23 Unknown History mcg/actuation nasal spray,suspension (Flonase Allergy Relief) carvedilol 3.125 mg tablet (Coreg) 3.125 mg PO BID #180 tabs 08/23/24 Unknown Rx furosemide 20 mg tablet 20 mg PO DAILY PRN edema 12/09/24 Unknown History lisinopril 20 mg tablet 10 mg (1/2 x 20 mg) PO QDAY #30 12/09/24 Unknown Rx tabs rivaroxaban 20 mg tablet (Xarelto) 20 mg PO DAILY #30 TABLETS 01/07/25 Unknown Rx amlodipine 5 mg tablet 5 mg PO DAILY 01/14/25 Unknown History atorvastatin 10 mg tablet (Lipitor) 10 mg PO QHS 01/14/25 Unknown History colchicine 0.6 mg capsule 0.6 mg PO BID 01/14/25 Unknown History dexamethasone 1 mg tablet 1 mg PO .COMPLEX 01/14/25 Unknown History metformin 500 mg tablet,extended 500 mg PO DAILY 01/14/25 Unknown History release 24 hr prednisone 10 mg tablet 10 mg PO .COMPLEX 01/14/25 Unknown History Allergy/AdvReac Type Severity Reaction Status Date / Time Cephalosporins Allergy Rash Verified 01/13/25 23:29 doxycycline Allergy Rash Verified 01/13/25 23:29 simvastatin (From Zocor) AdvReac Intermediate Myalgias Verified 01/13/25 23:29 Family History Daughter Atrial tachycardia RFA Brother CAD (coronary artery disease) Surgical History History of abdominal surgery H/O left knee surgery History of tonsillectomy and adenoidectomy History of cardioversion (02/12/17) History of left heart catheterization (01/16/17) Social History household members: spouse Smoking Status: Former smoker how long ago did patient quit smokin years ago alcohol intake: never substance use type: does not use caffeine: Yes Type: coffee Number of servings: 2 ROS ROS ED ROS Narrative Review of systems positive for abnormal laboratory values/high potassium. Patient denies chest pain or shortness of breath. No grave muscle weakness but states has been weak and not feeling right for the last year. Positive depression. EXAM Physical Exam Narrative Exam Narrative: Afebrile. Vital signs noted. Nontoxic-appearing. Cardiovascular examination reveals a regular rate and rhythm. Lungs are clear to auscultation bilaterally. Abdomen is soft and nontender with positive bowel sounds. Neurological examination nonfocal, nonlateralizing. Const Vital Signs: 01/13/25 23:27 01/13/25 23:48 Temperature 97.4 F L Temperature Source Oral Pulse Rate 98 Respiratory Rate 18 Respiratory Effort Normal Respiratory Pattern Normal Blood Pressure 167/76 H Blood Pressure Mean 106 Pulse Ox 98 Oxygen Delivery Method Room Air MDM MDM MDM Narrative Medical decision making narrative: Differential diagnosis includes but not limited to hyperkalemia secondary to acute renal failure versus lab error. His labs will be repeated the form of CBC and BMP to check his renal function and his current potassium level. It may have normalized. EKG was obtained to rule out dysrhythmia. He was placed on a bus monitor. EKG obtained and interpreted by myself independently as atrial fibrillation with PVCs at [address] changes. No STEMI. When compared to EKG in 2022, T waves are not significantly different or peaked. I reviewed his laboratory work that returned and his potassium is now normal at 5.1 but sodium low at 130 with chloride low at 97 with elevated BUN of 30 and normal creatinine of 1.13. I feel this is more consistent with mild dehydration. I discussed with the patient IV fluids and he will be bolused 1 L intravenously. CBC pending and will be checked by Dr. Jackman prior to discharge. At this point in time, I feel he can be discharged to follow-up with his primary care provider for repeat sodium check, they can check his potassium as well although it is normal here currently. Return instructions to the emergency department were reviewed. Disposition is discharged home in stable condition. History & Record Review Discussion w/independent historian: Patient and Family Additional record(s) reviewed:: Prior outpatient record (EKG no significant change from 2022) Lab Data Attestation: I reviewed the patient's lab results. Labs: Laboratory Results - last 24 hr 01/13/25 23:38 Sodium 130 L Potassium 5.1 Chloride 97 L Carbon Dioxide 18.2 L Anion Gap 14 BUN 30 H Creatinine 1.13 Estim Creat Clear Calc 52.95 Est GFR (MDRD) Non-Af 64 BUN/Creatinine Ratio 26.9 H Glucose 231 H Calcium 10.0 Discharge Plan Triage Chief Complaint: Abn Labs ED Provider: Juan Steve Dx/Rx/DC Orders Clinical Impression: Hyponatremia, Dehydration Instructions: ED Dehydration (Adult), ED Hyponatremia Prescriptions: No Action fluticasone propionate [Flonase Allergy Relief] 50 mcg/actuation spray,suspension 1 spray intranasal DAILY Rx Instructions: administer into each nostril furosemide 20 mg tablet 20 mg PO DAILY PRN (Reason: edema) Patient Comments: states he takes it just a couple times a week lisinopril 20 mg tablet 10 mg PO QDAY Qty: 30 11RF clonidine HCl 0.1 MG tablet 0.1 mg PO QHS amlodipine 5 mg tablet 5 mg PO DAILY dexamethasone 1 mg tablet 1 mg PO .COMPLEX Rx Instructions: 1 mg orally; metformin 500 mg tablet extended release 24 hr 500 mg PO DAILY prednisone 10 mg tablet 10 mg PO .COMPLEX Rx Instructions: 10 mg orally; 4 tablets for 3 days, 2 tablets for 3 days, 1 tablet for 3 days. colchicine 0.6 mg capsule 0.6 mg PO BID atorvastatin [Lipitor] 10 mg tablet 10 mg PO QHS carvedilol [Coreg] 3.125 mg tablet 3.125 mg PO BID Qty: 180 3RF Rx Instructions: must administer with a meal/food Xarelto 20 mg tablet 20 mg PO DAILY Qty: 30 12RF Primary Care Provider: Enrrique Ryan Referrals: Enrrique Ryan MD [Primary Care Provider] - 3-5 Days Activity Restrictions/Additional Instructions: Your potassium was normal at 5.1 during this visit. However, your sodium was low at 130. Drink plenty of oral fluids. Have your sodium rechecked by your primary care provider in 3 to 5 days. Return with any new or worsening symptoms. Print Language: Lebanese Disposition Disposition: Home, Self Care
[2025-01-13 23:45] LABS: Hematocrit 45.9 % (40-54); Hemoglobin 16.1 g/dL (13.0-16.5); Immature Granulocytes Count 0.040 X10^3/uL (0.0-0.0); Mean Corp Hgb Conc 35.1 g/dL (32-36); Mean Corpuscular Volume 93.7 fL (80-94); Mean Platelet Vol. 9.7 fl (6.2-12.0); NRBC Flagged by Analyzer 0 % (0-5); POSITIVE MORPHOLOGY YES; Platelet Count 208 K/mm3 (150-450); RBC Distribution Width CV 12.9 % (11.6-14.6); RBC Distribution Width SD 44.5 fl (35.1-43.9); Red Blood Count 4.90 M/mm3 (4.6-6.2); White Blood Count 10.9 K/mm3 (4.4-11.0)
--- OUTSIDE RECORDS SUMMARY | 2025-01-13 23:57 | XMS RPT_ITS | CCD ---
Author Organization [facility] Care Team Providers Care Certified Wellness Program Coordinator Name Role Phone Enedelia RN, Marylin A Unavailable Unavailable Enedelia RN, Marylin A Unavailable Unavailable Enedelia RN, Marylin A Unavailable Unavailable Enedelia RN, Marlyin A Unavailable Unavailable JODEE Cohn, Kerry Moscoso Unavailable Unavailabl kiesha Mcdaniels RN, Marylin A Unavailable Unavailable JODEE Cohn, Kerry Moscoso Unavailable Unavailquin Mcdaniels RN, Marylin A Unavailable Unavailable JODEE Cohn, Kerry Moscoso Unavailable Unavailquin Mcdaniels RN, Marylin A Unavailable Unavailable Enedelia RN, Marylin A Unavailable Unavailable JODEE Cohn, Kerry Moscoso Unavailable UnavailCarmelita Duarte Unavailable Unavailable Tiffany Van Unavailable Unavailable MD Bang, Eber García Unavailable Carmelita Rosado Unavailable Unavailable JODEE Cohn, Kerry Moscoso Unavailable Unavailabl kiesha Patrick PA-C, Ruth Moscoso Unavailable Tiffany Van Unavailable Unavailable JODEE Cohn, Kerry Moscoso Unavailable Unavailquin Cohn RN, Kerry Moscoso Unavailable Unavailabl kiesha Cohn RN, Kerry Moscoso Unavailable Unavailabl Tiffany Mares Unavailable Unavailable Enedelia ELLSWORTH, Marylin A Unavailable Unavailable Enrrique Carmona MD Primary Care Provider Enrrique Carmona MD Primary Care Provider Enrrique Carmona MD Primary Care Provider Dr. Enrrique Carmona Primary Care Provider Dr. Enrrique Carmona Referring Provider Bora ROCHA, BORAC Lola Attending Provider Cebul, Dr. April D Attending Provider Enrrique Carmona MD Primary Care Provider Enrrique Carmona MD Primary Care Provider Thony ELLSWORTH, Romana Unavailable Maria Elena RN, Loli Unavailable Maria Elena RN, Loli Unavailable ISABEL CELIS Referring Unavailable ENRRIQUE CARMONA Primary Care Unavailable Haagen OPTICAL MECHANIC APPRENTICE.CANDLES POURER, Patricia Unavailable Suppan OPTICAL MECHANIC APPRENTICE.CANDLES POURER, Vianney A Unavailable Suppan OPTICAL MECHANIC APPRENTICE.CANDLES POURER, Vianney A Unavailable Kristine GARCIA, Dr. Osuna Primary Care Provider Dr. Enrrique Carmona MD Referring Provider [facility] Rosalino HAZEL Attending Provider ENRRIQUE CARMONA Primary Care Unavailable VIANNEY SAHU Attending Unavailable ENRRIQUE CARMONA Primary Care Unavailable ENRRIQUE CARMONA Referring Unavailable ENRRIQUE CARMONA Primary Care Unavailable TABATHAARAM, OBIE QUINTERO Referring Unavaila ble KRISTINE, ENRRIQUE García Primary Care Unavailable BENDARAM, OBIE QUINTERO Referring Unavaila ble ENRRIQUE CARMONA Primary Care Unavailable ENRRIQUE CARMONA Referring Unavailable ENRRIQUE CARMONA Primary Care Unavailable ENRRIQUE CARMONA Referring Unavailable BENDARAM, OBIE QUINTERO Attending Unavaila ble KRISTINEENRRIQUE Trammell Primary Care Unavailable BENDARAM, OBIE QUINTERO Referring Unavaila ble ENRRIQUE CARMONA Primary Care Unavailable ENRRIQUE CARMONA Referring Unavailable ENRRIQUE CARMONA Primary Care Unavailable ALEJANDRA MARCEL Referring Unavailabl e ENRRIQUE CARMONA Primary Care Unavailable ENRRIQUE CARMONA Referring Unavailable CHARLOTTE ROBERTSAM Attending Unavailabl e ENRRIQUE CARMONA Primary Care Unavailable VIANNEY SAHU Attending Unavailable ENRRIQUE CARMONA Primary Care Unavailable VIANNEY SHAU Attending Unavailable ENRRIQUE CARMONA Primary Care Unavailable ALEJANDRA MARCEL Attending Unavailabl e ALEJANDRA MARCEL Admitting Unavailabl e ENRRIQUE CARMONA Primary Care Unavailable KRISTINE, ENRRIQUE García Attending Unavailable KRISTINE, ENRRIQUE García Primary Care Unavailable KRISTINE, ENRRIQUE García Primary Care Unavailable MARCEL ROBERTS Referring Unavailabl e KRISTINE, ENRRIQUE García Primary Care Unavailable KRISTINE, ENRRIQUE J Attending Unavailable KRISTINE, ENRRIQUE J Primary Care Unavailable KRISTINE, ENRRIQUE J Referring Unavailable KRISTINE, ENRRIQUE J Primary Care Unavailable KRISTINE, ENRRIQUE J Referring Unavailable KRISTINE, ENRRIQUE García Primary Care Unavailable KRISTINE, ENRRIQUE J Attending Unavailable KRISTINE, ENRRIQUE García Primary Care Unavailable KRISTINE, ENRRIQUE J Primary Care Unavailable KRISTINE, ENRRIQUE J Attending Unavailable KRISTINE, ENRRIQUE J Primary Care Unavailable KRISTINE, ENRRIQUE J Referring Unavailable KRISTINE, ENRRIQUE García Primary Care Unavailable KRISTINE, ENRRIQUE J Attending Unavailable KRISTINE, ENRRIQUE García Primary Care Unavailable VIANNEY SAHU Referring Unavailable ISABEL CELIS Attending Unavailable LENIN RODRIGUEZ Attending Unavailable SHOSHANA RAINES Admitting Unavailable KRISTINE, ENRRIQUE García Primary Care Unavailable KRISTINE, ENRRIQUE García Primary Care Unavailable VIANNEY SAHU Attending Unavailable KRISTINE, ENRRIQUE García Primary Care Unavailable BENDARAM, OBIE QUINTERO Referring Unavaila ble KRISTINE, ENRRIQUE J Primary Care Unavailable BENDARAM, OBIE QUINTERO Attending Unavaila ble KRISTINE, ENRRIQUE García Primary Care Unavailable BENDARAM, OBIE QUINTERO Referring Unavaila ble KRISTINE, ENRRIQUE García Primary Care Unavailable KRISTINE, ENRRIQUE J Referring Unavailable KRISTINE, ENRRIQUE García Primary Care Unavailable KRISTINE, ENRRIQUE García Referring Unavailable KRISTINE, ENRRIQUE García Primary Care Unavailable VIANNEY SAHU Attending Unavailable Jerilyn SAHNICRosalino Referring Provider [phone] Meir Heller MD Attending Provider [phone] Kristine, Enrrique Primary Care Unavailable Meir Heller Attending Unavailable Jerilyn WILDLIFE BIOLOGY TECHNICIANRosalino Referring Unavailable Kristine, Enrrique Primary Care Unavailable Isaac Parsons Attending Unavailable Kristine, Enrrique Referring Unavailable Roof WILDLIFE BIOLOGY TECHNICIAN, Rosalino Abarca Attending Unavailable [place], Enrrique Primary Care Unavailable Kristine, Enrrique Primary Care Unavailable Kristine, Enrrique Referring Unavailable Roof WILDLIFE BIOLOGY TECHNICIANRosalino Attending Unavailable [place], Enrrique Primary Care Unavailable Kristine, Enrrique Referring Unavailable Lola Sahni NP Attending Unavailable Kristine, Enrrique Primary Care Unavailable Roof WILDLIFE BIOLOGY TECHNICIAN, Rosalino Abarca Attending Unavailable Jerilyn WILDLIFE BIOLOGY TECHNICIAN, Rosalino Abarca Referring Unavailable Allergies Allergy Classification Reported Allergen(s) Allergy Type Date of Onset Reaction(s) Facility Cephalosporins (antibiotic) (1 source) Cephalosporins (Antibiotic) Drug Allergy 7 [facility] Work Phone: Doxycycline (1 source) Doxycycline Drug Allergy 2 [facility] (20 sources) doxycycline; Translations: [DOXYCYCLINE] drug allergy 2 Rash [facility] Work Phone: (11 sources) simvastatin drug allergy 7 myalgias [facility] Work Phone: (20 sources) CEPHLOSPORINS drug allergy 7 [facility] Work Phone: (17 sources) Cephalosporins (Antibiotic); Translations: [CEPHALOSPORINS] Propensity to adverse reactions to drug 7 [facility] Work Phone: (20 sources) Cephalosporins (Antibiotic) Propensity to adverse reactions to drug 7 [facility] Work Phone: (4 sources) Cephalosporins (Antibiotic) Allergy to substance 2 Rash [facility] (4 sources) Simvastatin Drug Allergy 2 Myalgias [facility] (20 sources) Mirtazapine; Translations: [MIRTAZAPINE] Drug Allergy 4 [facility] (1 source) Cephalosporins (Antibiotic) Drug allergy (disorder) 5 [facility] Repository (1 source) Simvastatin Drug Allergy 5 [facility] Rep[facility] Medications Current Medications Medication Drug Class(es) Dates Sig (Normalized) Sig (Original) acetaminophen 500 mg oral tablet (14 sources) Start: 03-09-2024 End: 04-08-2024 take 1 tablet by mouth every six hours as needed acetaminophen (TYLENOL) 500 mg tablet Take 1 tablet by mouth every 6 hours as needed for pain. 30 tablet 1 03/09/2024 04/08/2024 Active Acetaminophen / diphenhydrAMINE (20 sources) Histamine-1 Receptor Antagonist acetaminophen/diph enhydramine (TYLENOL PM ORAL) Take by mouth. Active acetaminophen 325 mg / HYDROcodone bitartrate 5 mg oral tablet (1 source) Opioid Agonist Start: 02-14-2024 End: 02-17-2024 take 1 tablet by mouth every eight hours as needed for pain HYDROcodone-acetam inophen (NORCO) 5-325 mg per tablet Indications: 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) Take 1 tablet by mouth every 8 hours as needed for pain for up to 3 days. 6 tablet 02/14/2024 02/17/2024 Active amLODIPine 5 mg oral tablet (20 sources) Dihydropyridine Calcium Channel Brandon Start: 03-19-2024 End: 09-15-2024 take 1 tablet by mouth once daily amLODIPine (NORVASC) 5 mg tablet Indications: Essential hypertension Take 1 tablet by mouth once daily. 90 tablet 1 03/19/2024 Active Start: 12-03-2023 End: 03-04-2024 take 5 mg by mouth once daily Amlodipine 10 mg tablet Discontinued 5 mg PO DAILY December 03, 2023 1:25pm March 04, 2024 1:03pm Start: 09-11-2018 End: 09-11-2018 take 1 tablet by mouth twice daily Amlodipine 5 mg tablet Discontinued 5 mg PO TWICE A DAY September 11, 2018 9:09am September 11, 2018 9:26am Start: 09-11-2018 End: 12-09-2024 take 1 tablet by mouth once daily Amlodipine 10 mg tablet Discontinued 10 mg PO DAILY March 04, 2024 1:01pm December 09, 2024 12:57pm Start: 08-28-2018 End: 09-11-2018 take 1 tablet by mouth once daily Amlodipine 5 mg tablet Discontinued 5 mg PO DAILY August 28, 2018 1:00am September 11, 2018 9:10am Start: 04-09-2010 End: 08-28-2018 take 1 tablet by mouth once daily Amlodipine 10 MG tablet Discontinued 10 mg PO DAILY November 29, 2016 12:00am August 28, 2018 12:25pm Start: 04-09-2010 take 1 tablet by vijaya th once daily NORVASC 5 MG TABS One tablet by mouth daily AMLODIPINE BESYLATE [id number] Saul Larson MS,PA-C Comment on above: Take 1 tablet by vijaya th once daily. atorvastatin 10 mg oral tablet (20 sources) HMG-CoA Reductase Inhibitor Start: 5 End: 6 take 1 tablet by mouth once daily atorvastatin (LIPITOR) 10 mg tablet Indications: Mixed hyperlipidemia , Type 2 diabetes mellitus without complication, without long-term current use of insulin (HCC) , Polycythemia Take 1 tablet by mouth once daily. 90 tablet 3 12/24/2024 12/24/2025 Active Start: 03-28-2021 End: 12-22-2024 take 1 tablet by mouth once daily Atorvastatin 20 mg tablet Discontinued 20 mg PO DAILY March 31, 2022 12:00am December 03, 2023 1:27pm Start: 09-11-2018 End: 04-12-2019 Atorvastatin 40 mg tablet Discontinued 20 mg PO AT BEDTIME September 11, 2018 9:34am April 12, 2019 11:31am Start: 09-11-2018 End: 04-12-2019 take 20 mg by mouth at bedtime Atorvastatin Discontinu ed 20 MG PO AT BEDTIME September 11, 2018 9:34am April 12, 2019 11:31am Start: 2018 End: 09-11-2018 take 1 tablet by mouth at bedtime Atorvastatin 40 mg tablet Discontinued 40 mg PO AT BEDTIME 30 2018 12:00am September 11, 2018 9:34am Comment on above: Take 1 tablet by vijaya th daily at bedtime. For cholesterol. carvedilol 3.125 mg oral tablet (20 sources) alpha-Adrenergic Brandon, beta-Adrenergic Brandon Start: 4 End: 5 take 1 tablet by mouth twice daily at mealtime Carvedilol (Coreg) 3.125 mg tablet Active 3.125 mg PO TWICE A DAY 180 3 August 23, 2024 11:43am must administer with a meal/food Start: 07-21-2017 End: 12-03-2023 take 1 tablet by mouth twice daily at mealtime Carvedilol (Coreg) 3.125 mg tablet Discontinued 3.125 mg PO TWICE A DAY 180 3 August 15, 2023 4:06pm December 03, 2023 1:27pm must administer with a meal/food Start: 12-10-2016 End: 07-21-2017 take 1 tablet by mouth twice daily Carvedilol 6.25 MG tablet Discontinued 6.25 mg PO TWICE A DAY January 13, 2017 12:00am July 21, 2017 3:55pm Comment on above: Take 3.125 mg by vijaya th twice daily with meals. cloNIDine hydrochloride 0.1 mg oral tablet (20 sources) Central alpha-2 Adrenergic Agonist Start: take 1 tablet by mouth once daily cloNIDine HCl (CATAPRES) 0.1 mg tablet Indications: Essential hypertension Take 1 tablet by mouth once daily. 60 tablet 5 08/09/2024 Active Start: 04-09-2010 End: 08-07-2024 take 1 tablet by mouth once daily cloNIDine HCl (CATAPRES) 0.1 mg tablet Indications: Essential hypertension Take 1 tablet by mouth once daily. 60 tablet 5 08/09/2024 Active Start: 04-09-2010 take 2 tablets by mo [facility] once daily CLONIDINE HCL 0.1 MG TABS Two tablets by mouth daily CLONIDINE HCL [id number] Eber Cuenca MD Comment on above: Take 1 tablet by vijaya th once daily. colchicine 0.6 mg oral capsule (2 sources) Start: 01-14-20 colchicine 0.6 mg capsule Indications: Pain of toe of left foot Take 2 tablets today when you get prescription, then in one hour take one pill. Thereafter take one pill twice a day until pain and swelling resolve 30 capsule 01/13/2025 Active dexamethasone 1 mg oral tablet (7 sources) Corticosteroid Start: 09-17-19 dexAMETHasone (DECADRON) 1 mg tablet Indications: Fatigue, unspecified type , Abnormal weight gain , ACTH elevation Take the tablet at 11 pm and go for labs the next morning on fasting at 8 am 1 tablet 09/16/2024 Active docusate sodium 100 mg oral capsule (14 sources) Start: 03-09-20 End: 04-08-20 take 1 capsule by mouth every twelve hours as needed docusate sodium (COLACE) 100 mg capsule Take 1 capsule by mouth two times a day as needed for constipation. 60 capsule 03/09/2024 04/08/2024 Active enteric contrast (will be provided with radiology test) (2 sources) Start: 08-27-19 End: 08-28-19 enteric contrast (will be provided with radiology test) Indications: H/O total adrenalectomy (HCC) For CT ABD/PEL W IVCON Routine order Administer, As Directed One Time Only, via Oral, Rectal, both Oral and Rectal, Enteric Tube, Stoma or Indwelling Catheter, Enteric Contrast as designated per enteric contrast guidelines 1 Each 08/26/2024 08/27/2024 Active Start: 01-05-2024 End: 01-06-2024 enteric contrast (will be pr ovided with radiology test) Indications: Weight loss , Left upper quadrant abdominal mass For CT ABD/PEL W IVCON Routine order Administer, As Directed One Time Only, via Oral, Rectal, both Oral and Rectal, Enteric Tube, Stoma or Indwelling Catheter, Enteric Contrast as designated per enteric contrast guidelines 1 Each 0 01/05/2024 01/06/2024 Active fluticasone propionate 0.05 mg/actuat metered dose nasal spray (20 sources) Corticosteroid Start: 12-03-2023 take 50 ug nasal route once daily Fluticasone Propionate (Flonase Allergy Relief) 50 mcg/actuation spray,suspension Active 1 NMA INTRANASAL DAILY December 03, 2023 12:00am administer into each nostril Start: 08-28-2018 End: 04-27-2020 Fluticasone Propionate (Flon ase Allergy Relief) 50 mcg/actuation spray,suspension Discontinued 2 NMA INTRANASAL DAILY as needed August 28, 2018 1:00am April 27, 2020 9:38am Start: 08-28-2018 End: 04-27-2020 Fluticasone Propionate (Flon ase Allergy Relief) 50 mcg/actuation spray,suspension Discontinued 2 SPRAY INTRANASAL DAILY August 28, 2018 1:00am April 27, 2020 9:38am Start: 12-10-2016 End: 12-10-2016 FLONASE 50 MCG/ACT SUSP Take as directed FLUTICASONE PROPIONATE [id number] Kerry Cohn RN Start: 12-10-2016 FLONASE 50 MCG /ACT SUSP Take as directed FLUTICASONE PROPIONATE [id number] Kerry Cohn RN Start: 12-10-2016 End: 12-10-2016 FLONASE 50 MCG/ACT SUSP Take as directed FLUTICASONE PROPIONATE [id number] Eber Cuenca MD furosemide 20 mg oral tablet (20 sources) Loop Diuretic Start: 09-25-2021 End: 12-09-2024 furosemide (LASIX) 20 mg tablet Indications: Congestive heart failure, unspecified HF chronicity, unspecified heart failure type (HCC) Take 1 tablet by mouth once daily as needed. For weight increase of 3 lb 30 tablet 5 03/15/2024 Active Comment on above: Take 1 tablet by vijaya th once daily. iv contrast (will be provided with radiology test) (2 sources) Start: 08-26-2024 End: 08-27-2024 iv contrast (will be provided with radiology test) Indications: H/O total adrenalectomy (HCC) CT ABD/PEL -Inject, intravenously, once for 1 dose.No IV access, insert saline lock prior to the beginning of sedation, infusion, injection of imaging exam. Discontinue saline lock post exam. If Pt. has a central line or IVAD, may access for administration according to line specific nursing protocol. Once exam is complete flush line and de-access according to line specific nursing protocol in the CT contrast administration guidelines link. 1 Each 08/26/2024 08/27/2024 Active Start: 01-05-2024 End: 01-06-2024 iv contrast (will be provide d with radiology test) Indications: Weight loss , Left upper quadrant abdominal mass CT ABD/PEL -Inject, intravenously, once for 1 dose.No IV access, insert saline lock prior to the beginning of sedation, infusion, injection of imaging exam. Discontinue saline lock post exam. If Pt. has a central line or IVAD, may access for administration according to line specific nursing protocol. Once exam is complete flush line and de-access according to line specific nursing protocol in the CT contrast administration guidelines link. 1 Each 0 01/05/2024 01/06/2024 Active lisinopril 20 mg oral tablet (20 sources) Angiotensin Converting Enzyme Inhibitor Start: 12-09-2024 take 10 mg by mouth once daily Lisinopril 20 mg tablet Active 10 mg PO daily 30 December 09, 2024 1:32pm Start: 06-02-2024 End: 06-02-2025 take 1 tablet by mouth once daily lisinopril (ZESTRIL) 20 mg tablet Indications: Essential hypertension , Hyperkalemia , Hypercalcemia Take 1 tablet by mouth once daily. 90 tablet 3 06/02/2024 06/02/2025 Active Start: 11-29-2016 End: 12-19-2024 take 1 tablet by mouth once daily Lisinopril 40 MG tablet Discontinued 40 mg PO DAILY November 29, 2016 12:00am June 10, 2024 12:41pm Start: 04-09-2010 End: 12-10-2016 take 1 tablet by mouth once daily ZESTRIL 5 MG TABS One tablet by mouth daily LISINOPRIL [id number] Kerry Cohn RN Comment on above: Take 1 tablet by vijaya th once daily. LORazepam 0.5 mg oral tablet (20 sources) Benzodiazepine Start: End: take 0.5 tablet by mouth at bedtime as needed for anxiety LORazepam (ATIVAN) 0.5 mg Indications: Anxiety with depression , Anxiety state Take 0.5 tablets by mouth at bedtime as needed (for anxiety) for up to 10 days. 5 tablet 02/10/2024 02/20/2024 Active Start: 01-14-2024 End: 04-15-2024 take 1 tablet by mouth at bedtime as needed LORazepam (ATIVAN) 0.5 mg Indications: Anxiety , Medication monitoring encounter Take 1 tablet by mouth at bedtime as needed for up to 90 days. 30 tablet 2 01/16/2024 02/10/2024 Discontinued (Dosage adjustment) Start: 09-22-2023 End: 12-21-2023 take 0.5 tablet by mouth twice daily LORazepam (ATIVAN) 0.5 mg Indications: Anxiety , Medication monitoring encounter Take 0.5 tablets by mouth two times a day for 90 days. 60 tablet 1 09/22/2023 12/21/2023 Active Start: 06-13-2023 End: 09-11-2023 take 0.5 tablet by mouth twice daily LORazepam (ATIVAN) 0.5 mg Indications: Anxiety , Medication monitoring encounter Take 0.5 tablets by mouth two times a day for 90 days. 60 tablet 1 06/13/2023 09/11/2023 Active Start: 02-03-2023 End: 05-04-2023 take 0.5 tablet by mouth twice daily LORazepam (ATIVAN) 0.5 mg Indications: Anxiety , Medication monitoring encounter Take 0.5 tablets by mouth twice daily for 90 days. 60 tablet 1 02/03/2023 05/04/2023 Active Start: 06-27-2022 End: 09-25-2022 take 0.5 tablet by mouth twice daily LORazepam (ATIVAN) 0.5 mg Indications: Anxiety , Medication monitoring encounter Take 0.5 tablets by mouth twice daily for 90 days. 60 tablet 1 06/27/2022 09/25/2022 Active Start: 04-09-2021 End: 04-04-2022 take 1 tablet by mouth twice daily as needed LORazepam (ATIVAN) 0.5 mg Indications: Anxiety , Medication monitoring encounter Take 1 tablet by mouth twice daily as needed for up to 90 days. 60 tablet 1 01/04/2022 04/04/2022 Active Start: 12-10-2016 End: 03-04-2024 take 1 tablet by mouth once daily as needed for anxiety Lorazepam 0.5 MG tablet Discontinued 0.5 mg PO DAILY NEEDED as needed for Anxiety January 13, 2017 12:00am March 04, 2024 1:00pm Comment on above: Take 1 tablet by vijaya twice daily as needed for up to 90 days. Take 0.5 tablets by mouth twice daily for 90 days. Take 0.5 tablets by mouth two times a day for 90 days. 24 hr metFORMIN hydrochloride 500 mg extended release oral tablet (20 sources) Biguanide Start: 12-25-19 End: 12-25-19 take 1 tablet by mouth once daily at breakfast metFORMIN ER (GLUCOPHAGE XR) 500 mg 24 hr tablet Indications: Mixed hyperlipidemia , Type 2 diabetes mellitus without complication, without long-term current use of insulin (HCC) , Polycythemia Take 1 tablet by mouth daily with breakfast. 90 tablet 3 12/24/2024 12/24/2025 Active Start: 12-15-2023 End: 12-22-2024 take 1 tablet by mouth once daily Metformin 500 mg tablet extended release 24 hr Discontinued 500 mg PO daily June 10, 2024 1:00am December 09, 2024 12:57pm Start: 12-03-2023 End: 06-10-2024 take 1 tablet by mouth once daily Metformin 500 mg tablet Discontinued 500 mg PO DAILY December 03, 2023 12:00am June 10, 2024 12:41pm Start: 03-30-2021 End: 12-12-2023 take 1 tablet by mouth once daily Metformin 500 mg tablet extended release 24 hr Discontinued 500 mg PO DAILY March 31, 2022 12:00am December 03, 2023 1:27pm Comment on above: Take 1 tablet by vijaya th daily with breakfast. molnupiravir 200 mg capsule (3 sources) Start: End: 2 take 4 capsules by mouth twice daily molnupiravir 200 mg capsule Indications: COVID-19 Take 4 capsules by mouth twice daily for 5 days. 40 capsule 0 03/30/2022 04/04/2022 Active Start: 03-29-2022 End: 03-30-2022 take 4 capsules by mouth twice daily molnupiravir 200 mg capsule Indications: COVID-19 Take 4 capsules by mouth twice daily for 5 days. 40 capsule 0 03/29/2022 03/30/2022 Discontinued Start: 03-29-2022 End: 04-03-2022 take 4 capsules by mouth twice daily molnupiravir 200 mg capsule Indications: COVID-19 Take 4 capsules by mouth twice daily for 5 days. 40 capsule 0 03/29/2022 04/03/2022 Active Comment on above: Take 4 capsules by m out twice daily for 5 days. mupirocin 20 mg/ml topical cream (1 source) RNA Synthetase Inhibitor Antibacterial Start: 12-27-19 End: 01-06-20 mupirocin (BACTROBAN) 2 % cream Apply 1 application to affected area three times daily for 10 days. Location: bilateral hands 30 g 0 12/26/2022 01/05/2023 Active Comment on above: Apply 1 application to affected area three times daily for 10 days. Location: bilateral hands OTC PRODUCT (20 sources) OTC PRODUCT THC gummy Active oxyCODONE hydrochloride 5 mg oral tablet (3 sources) Opioid Agonist Start: 03-09-20 End: 03-14-20 take 1 tablet by mouth every eight hours as needed for pain oxyCODONE IR (ROXICODONE) 5 mg immediate release tablet Indications: Adrenal mass greater than 4 cm in diameter (HCC) Take 1 tablet by mouth every 8 hours as needed for pain for up to 5 days. 15 tablet 03/09/2024 03/14/2024 Active predniSONE 10 mg oral tablet (2 sources) Start: 01-14-20 End: 01-23-20 25 predniSONE (DELTASONE) 10 mg tablet Take 4 tabs daily for 3 days, then 2 tabs daily for 3 days, then 1 tab daily for 3 days with food. 21 tablet 01/13/2025 01/22/2025 Active triamcinolone acetonide 0.41499 mg/mg topical ointment (20 sources) Corticosteroid Start: 12-27-19 23 triamcinolone (KENALOG) 0.025 % ointment Apply to affected area three times daily. 30 g 1 12/26/2022 Active Comment on above: Apply to affected ar ea three times daily. Completed/Discontinued Medications Medication Drug Class(es) Dates Sig (Normalized) Sig (Original) allopurinol 100 mg oral tablet (20 sources) Xanthine Oxidase Inhibitor Start: 10-20-2018 End: 12-09-2024 take 1 tablet by mouth once daily Allopurinol 100 mg Tablet Discontinued 100 mg PO DAILY March 31, 2022 12:00am December 09, 2024 12:58pm Start: 11-29-2016 End: 09-11-2018 take 1 tablet by mouth once daily Allopurinol 100 MG tablet Discontinued 100 mg PO DAILY November 29, 2016 12:00am September 11, 2018 9:16am Comment on above: Take 1 tablet by vijaya once daily. aspirin 81 mg delayed release oral tablet (20 sources) Nonsteroidal Anti-inflammatory Drug Start: 12-03-2023 End: 03-04-2024 Aspirin (Adult Aspirin Regimen) 81 mg tablet,delayed release (DR/EC) Discontinued 325 mg PO .2/weekly December 03, 2023 1:44pm March 04, 2024 1:02pm Start: 08-28-2018 End: 12-03-2023 take 1 tablet by mouth once daily Aspirin (Adult Aspirin Regimen) 81 mg tablet,delayed release (DR/EC) Discontinued 81 mg PO DAILY August 28, 2018 1:00am December 03, 2023 1:27pm Start: 07-21-2017 End: 01-28-2018 take 1 tablet by mouth once daily Aspirin 81 mg tablet,chewable Discontinued 81 mg PO daily July 21, 2017 1:00am January 28, 2018 11:26am Start: 11-29-2016 End: 12-10-2016 take 1 tablet by mouth once daily ASPIRIN EC 81 MG TBEC One tablet by mouth daily ASPIRIN [id number] Eber Cuenca MD Start: 02-22-2016 End: 02-13-2024 take 1 tablet by mouth two times weekly aspirin, enteric coated (ASPIRIN, ENTERIC COATED) 81 mg EC tablet Take 81 mg by mouth two times a week. 0 02/22/2016 02/13/2024 Discontinued (Other) Comment on above: Take 81 mg by mouth two times a week. cholecalciferol 0.05 mg oral capsule (20 sources) Vitamin D Start: 12-11-19 End: 12-11-19 take 1 tablet by mouth once daily VITAMIN D 2000 UNIT TABS One tablet by mouth daily CHOLECALCIFEROL [id number] Kerry Cohn RN Start: 10-30-2015 End: 12-03-2023 take 1 tablet by mouth once daily Cholecalciferol, Vitamin D3, 2,000 unit cap Take 1 tablet by mouth once daily. 0 10/30/2015 Active Comment on above: Take 1 tablet by vijaya once daily. 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 1 ml enoxaparin sodium 100 mg/ml prefilled syringe (20 sources) Low Molecular Weight Heparin Start: 01-08-2017 End: 01-21-2017 LOVENOX 100 MG/ML SOLN inject subcu twice daily ENOXAPARIN SODIUM [id number] Kerry Cohn RN Start: 01-08-2017 End: 01-21-2017 LOVENOX 100 MG/ML SOLN injec t subcu twice daily ENOXAPARIN SODIUM [id number] Kerry Cohn RN fluocinonide (20 sources) Corticosteroid Start: 04-09-2010 End: 12-10-2016 LIDEX 0.05 % CREA apply to r dileep Twice daily for maximum of 14 days FLUOCINONIDE [id number] Kerry Cohn RN Start: 04-09-2010 LIDEX 0.05 % C EARNEST apply to rash Twice daily for maximum of 14 days FLUOCINONIDE [id number] Saul Larson MS,PA-C hydroCHLOROthiazide 25 mg oral tablet (20 sources) Thiazide Diuretic Start: 04-09-2010 End: 12-10-2016 take 1 tablet by mouth once daily HYDROCHLOROTHIAZIDE 25 MG CAPS (HYDROCHLOROTHIAZIDE) One tablet by mouth daily HYDROCHLOROTHIAZIDE 25 MG CAPS (HYDROCHLOROTHIAZIDE) Kerry Cohn RN indomethacin 50 mg oral capsule (2 sources) Nonsteroidal Anti-inflammato ry Drug Start: 12-03-2023 End: 03-04-2024 take 1 capsule by mouth once at mealtime Indomethacin 50 mg capsule Discontinued 50 mg PO ONCE December 03, 2023 12:00am March 04, 2024 1:03pm administer with food or milk lemborexant 10 mg oral tablet (2 sources) Start: 04-07-2024 End: 05-07-2024 lemborexant (DAYVIGO) 10 mg tablet Indications: Insomnia, unspecified type Take 1 tablet by mouth daily at bedtime for 30 days. Start with half a pill, and increase if needed to a full pill 30 tablet 04/07/2024 04/09/2024 Discontinued 24 hr metoprolol succinate 25 mg extended release oral tablet (20 sources) beta-Adrenergic Brandon Start: 11-29-2016 End: 12-10-2016 take 1 tablet by mouth once daily TOPROL XL 25 MG [id number] One tablet by mouth daily METOPROLOL SUCCINATE [id number] Marylin Mcdaniels RN Start: 11-29-2016 End: 12-10-2016 take 1 tablet by mouth once daily TOPROL XL 25 MG [id number] One tablet by mouth daily METOPROLOL SUCCINATE [id number] Eber Cuenca MD Start: 11-29-2016 take 1 tablet by vijaya th once daily TOPROL XL 25 MG [id number] One tablet by mouth daily METOPROLOL SUCCINATE [id number] Marylin Mcdaniels RN mirtazapine 7.5 mg oral tablet (20 sources) Start: 02-10-2024 End: 06-10-2024 take 1 tablet by mouth at bedtime Mirtazapine 7.5 mg tablet Discontinued 7.5 mg PO AT BEDTIME March 04, 2024 12:00am June 10, 2024 12:42pm Molnupiravir (4 sources) Start: 03-31-2022 End: 05-31-2022 take 1 capsule by mouth twice daily Molnupiravir (Lagevrio (Eua)) 200 mg capsule Discontinued 800 mg PO TWICE A DAY March 31, 2022 12:00am May 31, 2022 3:02pm Start: 03-31-2022 End: 05-31-2022 take 1 capsule by mouth twice daily Molnupiravir (Lagevrio (Eua)) 200 mg capsule Discontinued 800 MG PO TWICE A DAY March 31, 2022 12:00am May 31, 2022 3:02pm Start: 03-31-2022 End: 05-31-2022 take 1 capsule by mouth twice daily Molnupiravir (Lagevrio (Eua)) 200 mg capsule Discontinued 800 MG PO TWICE A DAY March 30, 2022 11:00pm May 31, 2022 2:02pm polypodium leucotomos 240 mg oral capsule (20 sources) Start: 11-02-2020 End: 08-06-2021 take 1 mg by mouth once daily Polypodium Leucotomos Extract Discontinued MG PO DAILY November 02, 2020 12:00am August 06, 2021 4:45pm Start: 12-10-2016 End: 09-24-2021 take 1 mg by mouth once daily Polypodium Leucotomos Ex tract 240 mg capsule Discontinued mg PO DAILY November 02, 2020 12:00am August 06, 2021 4:45pm Comment on above: Take 1-2 capsules by mouth once daily. ramelteon 8 mg oral tablet (5 sources) Melatonin Receptor Agonist Start: 04-09-2024 End: 05-21-2024 take 1 tablet by mouth once daily at bedtime ramelteon (ROZEREM) 8 mg tablet Take 1 tablet by mouth daily at bedtime. 30 tablet 5 04/09/2024 05/21/2024 Discontinued (Other) Start: 04-07-2024 End: 04-07-2024 take 1 tablet by mouth once daily at bedtime ramelteon (ROZEREM) 8 mg tablet Take 1 tablet by mouth daily at bedtime. 30 tablet 1 04/07/2024 04/07/2024 Discontinued rivaroxaban 20 mg oral tablet (20 sources) Factor Xa Inhibitor Start: 01-13-2017 End: 07-21-2017 Rivaroxaban 15 MG tablet Discontinued 20 mg PO DAILY January 13, 2017 1:11pm July 21, 2017 3:53pm Start: 01-13-2017 End: 07-21-2017 take 20 mg by mouth once daily Rivaroxaban Discontinue d 20 MG PO DAILY January 13, 2017 1:11pm July 21, 2017 3:53pm Start: 12-10-2016 XARELTO 20 MG TABS hold 01/10 RIVAROXABAN [id number] Rosalino Jean-Baptiste NP Start: 12-10-2016 XARELTO 20 MG TABS .12 RIVAROXABAN [id number] Eber Cuenca MD Start: 11-29-2016 End: 01-13-2017 take 1 tablet by mouth twice daily Rivaroxaban (Xarelto) 15 MG tablet Discontinued 15 mg PO TWICE A DAY 42 0 November 29, 2016 12:00am January 13, 2017 1:11pm Start: 11-29-2016 End: 12-09-2024 take 1 tablet by mouth once daily Rivaroxaban (Xarelto) 20 mg tablet Discontinued 20 mg PO daily 30 November 04, 2022 2:52pm December 10, 2023 9:10am take 1 tablet by vijaya every other day rivaroxaban (XARELTO) 20 mg tablet Take 20 mg by mouth every other day. Active Comment on above: Take 20 mg by mouth daily with dinner. sertraline 25 mg oral tablet (11 sources) Serotonin Reuptake Inhibitor Start: 05-21-2024 End: 05-21-2025 take 1 tablet by mouth once daily sertraline (ZOLOFT) 25 mg tablet Indications: Major depressive disorder with current active episode, unspecified depression episode severity, unspecified whether recurrent Take 1 tablet by mouth once daily. 90 tablet 3 05/21/2024 06/18/2024 Discontinued (Discontinued by Patient) Start: 02-06-2024 End: 05-06-2024 take 1 tablet by mouth once daily sertraline (ZOLOFT) 25 mg tablet Indications: Anxiety Take 1 tablet by mouth once daily. 90 tablet 02/06/2024 02/10/2024 Discontinued (Clinical Decision) Start: 10-03-2023 End: 10-31-2023 take 0.5 tablet by mouth once daily, then take 1 tablet by mouth once daily sertraline (ZOLOFT) 50 mg tablet Indications: Anxiety state , Reactive depression Take 1/2 tab once a day orally for one week then 1 tab once a day 30 tablet 5 10/03/2023 10/31/2023 Discontinued (Discontinued by Patient) Comment on above: Take 1/2 tab once a day orally for one week then 1 tab once a day simvastatin 20 mg oral tablet (20 sources) HMG-CoA Reductase Inhibitor Start: 7 ZOCOR 20 MG TABS 1 tab by mouth at bedtime- HOLD SIMVASTATIN [id number] JESSIKA ToledoC sour traore allergenic extract (4 sources) Non-Standardized Food Allergenic Extract, Non-Standardized Plant Allergenic Extract Start: 9 End: 0 take 1 capsule by mouth once daily Sour Traore Extract (Tart Traore Extract) 1,000 mg capsule Discontinued 1000 mg PO DAILY 0 September 11, 2018 12:00am April 27, 2020 9:38am Start: 09-11-2018 End: 04-27-2020 take 1 capsule by mouth once daily Sour Traore Extract (Tart Traore Extract) 1,000 mg capsule Discontinued 1000 mg PO DAILY September 11, 2018 12:00am April 27, 2020 9:38am Start: 09-11-2018 End: 04-27-2020 take 1 capsule by mouth once daily Sour Traore Extract (Tart Traore Extract) 1,000 mg capsule Discontinued 1000 MG PO DAILY September 11, 2018 12:00am April 27, 2020 9:38am Start: 09-11-2018 End: 04-27-2020 take 1 capsule by mouth once daily Sour Traore Extract (Tart Traore Extract) 1,000 mg capsule Discontinued 1000 MG PO DAILY September 10, 2018 11:00pm April 27, 2020 8:38am traZODone hydrochloride 100 mg oral tablet (16 sources) Serotonin Reuptake Inhibitor Start: 03-19-2024 End: 06-17-2024 take 1 tablet by mouth once daily at bedtime for sleep traZODone (DESYREL) 100 mg tablet Indications: Major depressive disorder with current active episode, unspecified depression episode severity, unspecified whether recurrent , Chronic insomnia Take 1 tablet by mouth daily at bedtime. For sleep 30 tablet 2 03/19/2024 05/21/2024 Discontinued (Other) Start: 03-15-2024 End: 06-13-2024 take 1 tablet by mouth once daily at bedtime for sleep traZODone (DESYREL) 50 mg tablet Indications: Major depressive disorder with current active episode, unspecified depression episode severity, unspecified whether recurrent , Chronic insomnia Take 1 tablet by mouth daily at bedtime. For sleep 30 tablet 2 03/15/2024 03/19/2024 Discontinued Problems Active Problems Problem Classification Problem Date Documented Da te Episodic/Chronic Adjustment disorders (3 sources) Grief finding; Translations: [Adjustment disorder with depressed mood] Onset: 04-07-2024 03-04-2024 Chronic Anxiety disorders (20 sources) Anxiety; Translations: [Anxiety disorder, unspecified] Onset: 05-07-2015 Chronic Blindness and vision defects (4 sources) Visual disturbance; Translations: [Unspecified visual disturbance] 07-20-2017 Episodic Cardiac dysrhythmias (20 sources) Atrial fibrillation; Translations: [Persistent atrial fibrillation] Onset: [birth year]-23-1959 11-29-2016 Chronic Complications of surgical procedures or medical care (5 sources) History of adrenalectomy; 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] Onset: 09-07-2024 05-21-2024 Chronic Congestive heart failure; nonhypertensive (10 sources) Congestive heart failure; Translations: [Heart failure, unspecified] Onset: 12-22-2024 Chronic Diabetes mellitus without complication (20 sources) Type 2 diabetes mellitus without complication; Translations: [Type 2 diabetes mellitus without complications] Onset: 12-14-2010 Resolved: 05-02-2014 Chronic Disorders of lipid metabolism (20 sources) Mixed hyperlipidemia; Translations: [Mixed hyperlipidemia] Onset: 04-06-2015 12-10-2016 Chronic Diverticulosis and diverticulitis (20 sources) Diverticulosis of colon; Translations: [Diverticulosis of large intestine without perforation or abscess without bleeding] 04-25-2006 Chronic E Codes: Adverse effects of medical drugs (4 sources) Adverse reaction to drug; Translations: [Adverse effect of unspecified drugs, medicaments and biological substances, initial encounter] 04-08-2022 Episodic Essential hypertension (20 sources) Hypertensive disorder; Translations: [Essential hypertension] Onset: 04-06-2015 04-09-2010 Chronic Gout and other crystal arthropathies (20 sources) Gout; Translations: [Gout, unspecified] Onset: 04-06-2015 04-06-2015 Chronic Headache; including migraine (20 sources) Ophthalmic migraine; Translations: [Migraine with aura, not intractable, without status migrainosus] Onset: 03-23-2016 03-23-2016 Chronic Hyperplasia of prostate (20 sources) Benign prostatic hypertrophy without outflow obstruction; Translations: [Benign prostatic hyperplasia without lower urinary tract symptoms] Onset: 08-16-2010 Resolved: 07-09-2016 10-15-2005 Chronic Immunizations and screening for infectious disease (20 sources) Encounter for immunization; Translations: [Needs influenza immunization] Onset: 04-09-2010 Resolved: 12-10-2016 04-09-2010 Episodic Miscellaneous mental health disorders (4 sources) Chronic insomnia; Translations: [Psychophysiologic insomnia] Onset: 02-10-2024 02-10-2024 Chronic Mood disorders (20 sources) Chronic depression; Translations: [Chronic depression] Onset: 03-31-2018 03-31-2018 Chronic Mood disorders (1 source) Mood disorders; Translations: [Depression, unspecified] Onset: 02-11-2024 Nutritional deficiencies (20 sources) Malnutrition (calorie); Translations: [Moderate protein-calorie malnutrition] Onset: 03-09-2024 03-09-2024 Chronic Occlusion or stenosis of precerebral arteries (20 sources) Carotid artery stenosis; Translations: [Bilateral stenosis of carotid arteries] Onset: 12-10-2016 Resolved: 10-08-2019 12-10-2016 Chronic Other aftercare (3 sources) Long-term current use of anticoagulant; Translations: [prison (current) use of anticoagulants] 04-24-2023 Episodic Other bone disease and musculoskeletal deformities (1 source) Disorder of bone; Translations: [Disorder of bone, unspecified] 12-22-2024 Episodic Other bone disease and musculoskeletal deformities (1 source) Disorder of bone, unspecified; Translations: [Disorder of bone] Onset: 12-22-2024 Episodic Other circulatory disease (4 sources) Orthostatic hypotension; Translations: [Orthostatic hypotension] 04-08-2022 Episodic Other connective tissue disease (4 sources) Pain in left arm; Translations: [Pain in left arm] 07-20-2017 Episodic Other connective tissue disease (2 sources) Pain of toe of left foot; Translations: [Pain in left toe(s)] 01-13-2025 Episodic Other endocrine disorders (20 sources) Adrenal mass; Translations: [Other specified disorders of adrenal gland] Onset: 02-13-2024 01-09-2024 Chronic Other endocrine disorders (1 source) Disorder of adrenal gland; Translations: [Disorder of adrenal gland, unspecified] 01-14-2024 Chronic Other endocrine disorders (20 sources) Mass of left adrenal gland; Translations: [Other specified disorders of adrenal gland] Onset: 03-05-2024 03-05-2024 Chronic Other endocrine disorders (4 sources) Other specified disorders of adrenal gland; Translations: [Left adrenal mass (HCC)] Onset: 01-23-2024 Chronic Other endocrine disorders (1 source) Disorder of adrenal gland, unspecified; Translations: [Disorder of adrenal gland (HCC)] Onset: 01-16-2024 Chronic Other gastrointestinal disorders (4 sources) Diarrhea due to drug; Translations: [Toxic gastroenteritis and colitis] 04-08-2022 Episodic Other gastrointestinal disorders (4 sources) Abdominal mass; Translations: [Left upper quadrant abdominal swelling, mass and lump] 01-05-2024 Episodic Other gastrointestinal disorders (2 sources) Finding of abdominopelvic segment of trunk; Translations: [Intra-abdominal and pelvic swelling, mass and lump, unspecified site] 01-05-2024 Episodic Other gastrointestinal disorders (1 source) Abnormal feces; Translations: [Other fecal abnormalities] 06-18-2024 Episodic Other hematologic conditions (1 source) Erythrocytosis; Translations: [Secondary polycythemia] 05-24-2024 Episodic Other hereditary and degenerative nervous system conditions (2 sources) Impaired cognition; Translations: [Mild cognitive impairment, so stated] 04-07-2024 Chronic Other hereditary and degenerative nervous system conditions (2 sources) Mild cognitive impairment, so stated; Translations: [Cognitive impairment, mild, so stated] Onset: 04-07-2024 Chronic Other inflammatory condition of skin (20 sources) Rosacea; Translations: [Rosacea, unspecified] Onset: 02-02-2009 02-02-2009 Chronic Other injuries and conditions due to external causes (1 source) Foreign body in auditory canal; Translations: [Foreign body in left ear, initial encounter] Episodic Other lower respiratory disease (20 sources) Dyspnea; Translations: [Shortness of breath] Onset: 12-11-2016 12-11-2016 Episodic Other male genital disorders (20 sources) Secondary erectile dysfunction; Translations: [Male erectile dysfunction, unspecified] 10-15-2005 Chronic Other non-traumatic joint disorders (1 source) Pain in wrist; Translations: [Pain in right wrist] 04-19-2021 Episodic Other nutritional; endocrine; and metabolic disorders (20 sources) Body mass index (BMI) 33.0-33.9, adult; Translations: [Body mass index (BMI) 33.0-33.9, adult] Onset: 12-10-2016 12-10-2016 Chronic Other nutritional; endocrine; and metabolic disorders (20 sources) Obesity; Translations: [Obesity, unspecified] 10-15-2005 Chronic Other nutritional; endocrine; and metabolic disorders (1 source) Hypercalcemia; Translations: [Hypercalcemia] 06-02-2024 Chronic Other nutritional; endocrine; and metabolic disorders (1 source) Hypercalcemia; Translations: [Hypercalcemia] Onset: 06-18-2024 Chronic Other nutritional; endocrine; and metabolic disorders (8 sources) Weight loss; Translations: [Abnormal weight loss] 01-05-2024 Episodic Other nutritional; endocrine; and metabolic disorders (1 source) Abnormal weight gain; Translations: [Abnormal weight gain] 09-16-2024 Episodic Other skin disorders (1 source) Eruption; Translations: [Rash and other nonspecific skin eruption] Episodic Residual codes; unclassified (1 source) Noncompliance with treatment; Translations: [Noncompliance] Episodic Residual codes; unclassified (2 sources) Bilateral lower limb edema; Translations: [Localized edema] 02-10-2024 Episodic Residual codes; unclassified (2 sources) Insomnia; Translations: [Insomnia, unspecified] 04-07-2024 Episodic Spondylosis; intervertebral disc disorders; other back problems (20 sources) Degeneration of lumbar intervertebral disc; Translations: [Other intervertebral disc degeneration, lumbar region] Onset: 05-14-2017 05-14-2017 Chronic Unclassified (1 source) Degeneration of intervertebral disc of lumbar region, unspecified whether pain present; Translations: [Degeneration of intervertebral disc of lumbar region, unspecified whether pain present] Onset: 05-14-2017 Viral infection (10 sources) Disease caused by 2019-nCoV; Translations: [COVID-19] Episodic Past or Other Problems Problem Classification Problem Date Documented Da te Episodic/Chronic Administrative/social admission (20 sources) Patient encounter status; Translations: [Other specified counseling] Onset: 2 Episodic Allergic reactions (20 sources) Vesicular hand eczema; Translations: [Contact dermatitis] Onset: 8 Resolved: 1 04-09-2010 Episodic Conditions associated with dizziness or vertigo (20 sources) Lightheadedness; Translations: [Dizziness and giddiness] Onset: 4 04-24-2023 Episodic Deficiency and other anemia (20 sources) Increased hemoglobin; Translations: [Other hemoglobinopathies] Onset: 8 Resolved: 1 03-26-2021 Chronic Diabetes mellitus without complication (2 sources) Prediabetes; Translations: [Prediabetes] Onset: 4 06-18-2024 Episodic Fluid and electrolyte disorders (4 sources) Hyperkalemia; Translations: [Hyperkalemia] Onset: 4 05-24-2024 Episodic Gastrointestinal hemorrhage (6 sources) Hematochezia; Translations: [Melena] Onset: 4 01-05-2024 Episodic Genitourinary symptoms and ill-defined conditions (20 sources) Nocturia; Translations: [Nocturia] Onset: 6 Resolved: 7 07-09-2016 Episodic Malaise and fatigue (4 sources) Fatigue; Translations: [Other fatigue] Onset: 5 05-21-2024 Episodic Other aftercare (1 source) Encounter for therapeutic drug level monitoring; Translations: [Medication monitoring encounter] Onset: 4 Episodic Other and unspecified benign neoplasm (20 sources) History of polyp of colon; Translations: [Personal history of colonic polyps] Onset: 1 08-09-2010 Episodic Other and unspecified benign neoplasm (20 sources) Benign neoplasm of colon; Translations: [Benign neoplasm of colon, unspecified] Onset: 7 Resolved: 4 05-02-2014 Episodic Other circulatory disease (13 sources) Electrocardiogram abnormal; Translations: [Abnormal electrocardiogram [ECG] [EKG]] Onset: 7 01-08-2017 Episodic Other gastrointestinal disorders (1 source) Left upper quadrant abdominal swelling, mass and lump; Translations: [Left upper quadrant abdominal mass] Onset: 4 Episodic Other gastrointestinal disorders (1 source) Intra-abdominal and pelvic swelling, mass and lump, unspecified site; Translations: [Intra-abdominal and pelvic swelling, mass and lump, unspecified site] Onset: 4 Episodic Other hematologic conditions (1 source) Secondary polycythemia; Translations: [Polycythemia] Onset: 4 Episodic Other male genital disorders (20 sources) Disorder of prostate; Translations: [Disorder of prostate, unspecified] Onset: 6 Resolved: 7 07-09-2016 Episodic Other non-epithelial cancer of skin (20 sources) History of malignant neoplasm of skin; Translations: [Personal history of other malignant neoplasm of skin] Onset: 8 05-04-2018 Episodic Other nutritional; endocrine; and metabolic disorders (1 source) Abnormal weight gain; Translations: [Abnormal weight gain] Onset: 5 Episodic Other nutritional; endocrine; and metabolic disorders (1 source) Abnormal weight loss; Translations: [Weight loss] Onset: 4 Episodic Other screening for suspected conditions (not mental disorders or infectious disease) (20 sources) Blood chemistry abnormal; Translations: [Other specified abnormal findings of blood chemistry] Onset: 6 Resolved: 7 07-09-2016 Episodic Other skin disorders (20 sources) Alopecia; Translations: [Nonscarring hair loss, unspecified] Onset: 7 10-22-2006 Episodic Other skin disorders (20 sources) Chronic folliculitis; Translations: [Follicular disorder, unspecified] Onset: 1 12-16-2010 Episodic Residual codes; unclassified (1 source) Insomnia, unspecified; Translations: [Insomnia, unspecified type] Onset: 4 Episodic Residual codes; unclassified (1 source) Localized edema; Translations: [Bilateral leg edema] Onset: 4 Episodic Unclassified (1 source) History of adrenalectomy 08-26-2024 Results Test Name Value Interpretation Reference Range Facility 25(OH)D3 [facility] 2024 25-hydroxyvitamin D3 [Mass/Vol] 34.9 ng/mL Normal 31.0-80.0 [facility] Comment on above: Order Comment: Speci men Type: BLOOD SPECIMENOrdering Facility: [facility] Address: [address] [place] [address] Result Comment: Clas sification of 25 [place] Vitamin D status:Deficiency/Insufficiency: < or = 30 ng/ml.Sufficiency/Optimal Levels: 31-80 ng/mLToxicity: > 100 ng/mL.Test performed by chemiluminescent immunoassay. Performed By: #### 1 [id number] ####[facility] LABCL[facility] [id number] [place] [address] [place] 25-hydroxyvitamin D3 [Mass/V ol]on 12-22-2024 Interpretation and review of laboratory results Normal [facility] The reference range interval was based on an analysis of samples from healthy adults and may not pertain to children from 0-18 years old. [facility] CBC W Auto Differential pane l (Bld)on 12-22-2024 Basophils (Bld) [#/Vol] 0.09 10*3/uL [facility] Basophils/100 WBC (Bld) 1 % [facility] Differential cell count method Nom (Bld) Auto [facility] Eosinophils (Bld) [#/Vol] 0.47 10*3/uL High [facility] Eosinophils/100 WBC (Bld) 5.2 % [facility] Erythrocyte distribution width (RBC) [Ratio] 13.3 % 11.5 - 15.0 % [facility] Hematocrit (Bld) [Volume fraction] 53.6 % High 39.0 - 51.0 % [facility] Hemoglobin (Bld) [Mass/Vol] 18.2 g/dL High 13.0 - 17.0 g/dL [facility] Immature granulocytes (Bld) [#/Vol] 0.04 10*3/uL [facility] Immature granulocytes/100 WBC (Bld) 0.4 % [facility] Interpretation and review of laboratory results Abnormal [facility] Lymphocytes (Bld) [#/Vol] 1.63 10*3/uL [facility] Lymphocytes/100 WBC (Bld) 18.1 % [facility] MCH (RBC) [Entitic mass] 32.5 pg 26.0 - 34.0 pg [facility] MCHC (RBC) [Mass/Vol] 34 g/dL 30.5 - 36.0 g/dL [facility] MCV (RBC) [Entitic vol] 95.7 fL 80.0 - 100.0 fL [facility] Monocytes (Bld) [#/Vol] 0.63 10*3/uL [facility] Monocytes/100 WBC (Bld) 7 % [facility] Neutrophils (Bld) [#/Vol] 6.15 10*3/uL [facility] Neutrophils/100 WBC (Bld) 68.3 % [facility] Nucleated RBC (Bld) [#/Vol] [facility] Nucleated RBC/100 WBC (Bld) [Ratio] 0 % /100 WBC [facility] Platelet mean volume (Bld) [Entitic vol] 10.4 fL 9.0 - 12.7 fL [facility] Platelets (Bld) [#/Vol] 241 10*3/uL [facility] RBC (Bld) [#/Vol] 5.6 10*6/uL 4.20 - 6.0 0 m/uL [facility] WBC (Bld) [#/Vol] 9.01 10*3/uL [facility] Basophils (Bld) [#/Vol] 0.09 10*3/uL Normal <0.11 [facility] Comment on above: Order Comment: Speci men Type: BLOOD SPECIMENOrdering Facility: [facility] Address: [address] [place] [address] Performed By: #### 5 7021-8 ####[facility] LABCLIA [id number] [place] [address] [place] Basophils/100 WBC (Bld) 1.0 % Normal [facility] Comment on above: Order Comment: Speci men Type: BLOOD SPECIMENOrdering Facility: [facility] Address: [address] [place] [address] Performed By: #### 5 7021-8 ####[facility] LABCLIA [id number] [place] [address] [place] Differential cell count method Nom (Bld) Auto Normal [facility] Comment on above: Order Comment: Speci men Type: BLOOD SPECIMENOrdering Facility: [facility] Address: [address] [place] [address] Performed By: #### 5 7021-8 ####[facility] LABCLIA [id number] [place] [address] [place] Eosinophils (Bld) [#/Vol] 0.47 10*3/uL High <0.46 [facility] Comment on above: Order Comment: Speci men Type: BLOOD SPECIMENOrdering Facility: [facility] Address: [address] [place] [address] Performed By: #### 5 7021-8 ####[facility] LABCLIA [id number] [place] [address] [place] Eosinophils/100 WBC (Bld) 5.2 % Normal [facility] Comment on above: Order Comment: Speci men Type: BLOOD SPECIMENOrdering Facility: [facility] Address: [address] [place] [address] Performed By: #### 5 7021-8 ####[facility] LABCLIA [id number] [place] [address] [place] Erythrocyte distribution width (RBC) [Ratio] 13.3 % Normal 11.5-15.0 [facility] Comment on above: Order Comment: Speci men Type: BLOOD SPECIMENOrdering Facility: [facility] Address: [address] [place] [address] Performed By: #### 5 7021-8 ####[facility] LABCLIA [id number] [place] [address] [place] Hematocrit (Bld) [Volume fraction] 53.6 % High 39.0-51.0 [facility] Comment on above: Order Comment: Speci men Type: BLOOD SPECIMENOrdering Facility: [facility] Address: [address] [place] [address] Performed By: #### 5 7021-8 ####[facility] LABIA [id number] [place] [address] [place] Hemoglobin (Bld) [Mass/Vol] 18.2 g/dL High 13.0-17.0 [facility] Comment on above: Order Comment: Speci men Type: BLOOD SPECIMENOrdering Facility: [facility] Address: [address] [place] [address] Performed By: #### 5 7021-8 ####[facility] LABIA [id number] [place] [address] [place] Immature granulocytes (Bld) [#/Vol] 0.04 10*3/uL Normal <0.10 [facility] Comment on above: Order Comment: Speci men Type: BLOOD SPECIMENOrdering Facility: [facility] Address: [address] [place] [address] Performed By: #### 5 7021-8 ####[facility] LABIA [id number] [place] [address] [place] Immature granulocytes/100 WBC (Bld) 0.4 % Normal [facility] Comment on above: Order Comment: Speci men Type: BLOOD SPECIMENOrdering Facility: [facility] Address: [address] [place] [address] Performed By: #### 5 7021-8 ####[facility] LABIA [id number] [place] [address] [place] Lymphocytes (Bld) [#/Vol] 1.63 10*3/uL Normal 1.00-4.00 [facility] Comment on above: Order Comment: Speci men Type: BLOOD SPECIMENOrdering Facility: [facility] Address: [address] [place] [address] Performed By: #### 5 7021-8 ####[facility] LABCLIA [id number] [place] [address] [place] Lymphocytes/100 WBC (Bld) 18.1 % Normal [facility] Comment on above: Order Comment: Speci men Type: BLOOD SPECIMENOrdering Facility: [facility] Address: [address] [place] [address] Performed By: #### 5 7021-8 ####[facility] LABIA [id number] [place] [address] [place] MCH (RBC) [Entitic mass] 32.5 pg Normal 26.0-34.0 [facility] Comment on above: Order Comment: Speci men Type: BLOOD SPECIMENOrdering Facility: [facility] Address: [address] [place] [address] Performed By: #### 5 7021-8 ####[facility] LABIA [id number] [place] [address] [place] MCHC (RBC) [Mass/Vol] 34.0 g/dL Normal 30.5-36.0 [facility] Comment on above: Order Comment: Speci men Type: BLOOD SPECIMENOrdering Facility: [facility] Address: [address] [place] [address] Performed By: #### 5 7021-8 ####[facility] LABCLIA [id number] [place] [address] [place] MCV (RBC) [Entitic vol] 95.7 fL Normal 80.0-100.0 [facility] Comment on above: Order Comment: Speci men Type: BLOOD SPECIMENOrdering Facility: [facility] Address: [address] [place] [address] Performed By: #### 5 7021-8 ####[facility] LABCLIA [id number] [place] [address] [place] Monocytes (Bld) [#/Vol] 0.63 10*3/uL Normal <0.87 [facility] Comment on above: Order Comment: Speci men Type: BLOOD SPECIMENOrdering Facility: [facility] Address: [address] [place] [address] Performed By: #### 5 7021-8 ####[facility] LABCLIA [id number] [place] [address] [place] Monocytes/100 WBC (Bld) 7.0 % Normal [facility] Comment on above: Order Comment: Speci men Type: BLOOD SPECIMENOrdering Facility: [facility] Address: [address] [place] [address] Performed By: #### 5 7021-8 ####[facility] LABCLIA [id number] [place] [address] [place] Neutrophils (Bld) [#/Vol] 6.15 10*3/uL Normal 1.45-7.50 [facility] Comment on above: Order Comment: Speci men Type: BLOOD SPECIMENOrdering Facility: [facility] Address: [address] [place] [address] Performed By: #### 5 7021-8 ####[facility] LABCLIA [id number] [facility] [place] [id number] [place] Neutrophils/100 WBC (Bld) 68.3 % Normal [facility] Comment on above: Order Comment: Speci men Type: BLOOD SPECIMENOrdering Facility: [facility] Address: [address] [place] [address] Performed By: #### 5 7021-8 ####[facility] LABCLIA [id number] [place] [address] [place] Nucleated RBC (Bld) [#/Vol] 10*3/uL Normal <0.01 [facility] Comment on above: Order Comment: Speci men Type: BLOOD SPECIMENOrdering Facility: [facility] Address: [address] [place] [address] Performed By: #### 5 7021-8 ####[facility] LABIA [id number] [place] [address] [place] Nucleated RBC/100 WBC (Bld) [Ratio] 0.0 /100 WBC Normal [facility] Comment on above: Order Comment: Speci men Type: BLOOD SPECIMENOrdering Facility: [facility] Address: [address] [place] [address] Performed By: #### 5 7021-8 ####[facility] LABCLIA [id number] [place] [address] [place] Platelet mean volume (Bld) [Entitic vol] 10.4 fL Normal 9.0-12.7 [facility] Comment on above: Order Comment: Speci men Type: BLOOD SPECIMENOrdering Facility: [facility] Address: [address] [place] [address] Performed By: #### 5 7021-8 ####[facility] LABIA [id number] [place] [address] [place] Platelets (Bld) [#/Vol] 241 10*3/uL Normal 150-400 [facility] Comment on above: Order Comment: Speci men Type: BLOOD SPECIMENOrdering Facility: [facility] Address: [address] [place] [address] Performed By: #### 5 7021-8 ####[facility] LABCLIA [id number] [place] [id number] [place] RBC (Bld) [#/Vol] 5.60 10*6/uL Normal 4.20-6.00 [facility] Comment on above: Order Comment: Speci men Type: BLOOD SPECIMENOrdering Facility: [facility] Address: [address] [place], [place] [address] Performed By: #### 5 7021-8 ####[facility] LABCLIA [id number] [address] [address] [place] WBC (Bld) [#/Vol] 9.01 10*3/uL Normal 3.70-11.00 [facility] Comment on above: Order Comment: Speci men Type: BLOOD SPECIMENOrdering Facility: [facility] Address: [address] [place] [address] Performed By: #### 5 7021-8 ####[facility] LABCLIA [id number] [place] [id number] [place] CNOVon 12-22-2024 CNOV Normal [facility] metabolic 2000 panelon 12-22-2024 Albumin [Mass/Vol] 4.3 g/dL Normal 3.9-4.9 [facility] Comment on above: Order Comment: Speci men Type: BLOOD SPECIMENOrdering Facility: [facility] Address: [address] [place] [address] Performed By: #### T 4FONIEL, 21895-2, LIPNF ####[facility] LABIA [id number] [place] [id number] [place] ALP [Catalytic activity/Vol] 103 U/L Normal 38-113 [facility] Comment on above: Order Comment: Speci men Type: BLOOD SPECIMENOrdering Facility: [facility] Address: [address] [place], [place] [address] Performed By: #### T ALEX, 90399-0, LIPNF ####[facility] LABCLIA [id number] [address] [address] [place] ALT [Catalytic activity/Vol] 22 U/L Normal 10-54 [facility] Comment on above: Order Comment: Speci men Type: BLOOD SPECIMENOrdering Facility: [facility] Address: [address] [place] [address] Performed By: #### T 4FONIEL, , LIPNF ####[facility] LABCLIA [id number] [place] [address] [place] Anion gap [Moles/Vol] 11 mmol/L Normal 8-15 [facility] Comment on above: Order Comment: Speci men Type: BLOOD SPECIMENOrdering Facility: [facility] Address: [address] [place] [address] Performed By: #### T 4FONIEL, , LIPNF ####[facility] LABCLIA [id number] [place] [address] [place] AST [Catalytic activity/Vol] 23 U/L Normal 14-40 [facility] Comment on above: Order Comment: Speci men Type: BLOOD SPECIMENOrdering Facility: [facility] Address: [address] [place] [address] Performed By: #### T 4FONIEL, , LIPNF ####[facility] LABCLIA [id number] [place] [address] [place] Bilirubin [Mass/Vol] 0.5 mg/dL Normal 0.2-1.3 [facility] Comment on above: Order Comment: Speci men Type: BLOOD SPECIMENOrdering Facility: [facility] Address: [address] [place] [address] Performed By: #### T 4FONIEL, , LIPNF ####[facility] LABCLIA [id number] [place] [id number] [place] Calcium [Mass/Vol] 10.2 mg/dL Normal 8.5-10.2 [facility] Comment on above: Order Comment: Speci men Type: BLOOD SPECIMENOrdering Facility: [facility] Address: [address] [place] [address] Performed By: #### T 4FONIEL, , LIPNF ####[facility] LABCLIA [id number] [address] [address] [place] Chloride [Moles/Vol] 99 mmol/L Normal 98-107 [facility] Comment on above: Order Comment: Speci men Type: BLOOD SPECIMENOrdering Facility: [facility] Address: [address] [place] [address] Performed By: #### Екатерина 4FONIEL, 86240-2, LIPNF ####[facility] LABIA [id number] [place] [id number] [place] CO2 [Moles/Vol] 23 mmol/L Normal 22-30 [facility] Comment on above: Order Comment: Speci men Type: BLOOD SPECIMENOrdering Facility: [facility] Address: [address] [place] [address] Performed By: #### Екатерина JOHNSON, 55770-9, LIPNF ####[facility] LABIA [id number] [place] [address] [place] Creatinine [Mass/Vol] 0.99 mg/dL Normal 0.73-1.22 [facility] Comment on above: Order Comment: Speci men Type: BLOOD SPECIMENOrdering Facility: [facility] Address: [address] [place] [address] Performed By: #### Екатерина JOHNSON, 73433-7, LIPNF ####[facility] LABIA [id number] [place] [address] [place] Creatinine and Glomerular filtration rate.predicted panel (S/P/Bld) 75 mL/min/1.73m??? Normal >=60 [facility] Comment on above: Order Comment: Speci men Type: BLOOD SPECIMENOrdering Facility: [facility] Address: [address] [place] [address] Result Comment: Sun mated Glomerular Filtration Rate (eGFR) is calculated using the 2020 CKD-EPI creatinine equation. This equation utilizes serum creatinine, sex, and age as parameters. The creatinine assay has traceable calibration to isotope dilution-mass spectrometry. Refer to KDIGO guidelines for clinical interpretation. In patients with unstable renal function, e.g. those with acute kidney injury, the eGFR may not accurately reflect actual GFR. Performed By: #### T ALEX, 01517-7, LIPNF ####[facility] LABCLIA [id number] [address] [address] [place] Glucose [Mass/Vol] 113 mg/dL High 74-99 [facility] Comment on above: Order Comment: Speci men Type: BLOOD SPECIMENOrdering Facility: [facility] Address: [address] [place] [address] Result Comment: The [place] Diabetes Association (ADA) provides guidance for cutoff values for fasting glucose and random glucose. The ADA defines fasting as no caloric intake for at least 8 hours. Fasting plasma glucose results between 100 to 125 mg/dL indicate increased risk for diabetes (prediabetes).Fasting plasma glucose results greater than or equal to 126 mg/dL meet the criteria for diagnosis of diabetes. In the absence of unequivocal hyperglycemia, results should be confirmed by repeat testing. In a patient with classic symptoms of hyperglycemia or hyperglycemic crisis, random plasma glucose results greater than or equal to 200 mg/dL meet the criteria for diagnosis of diabetes.Reference: Standards of Medical Care in Diabetes 2016, [place] [employer] Association. Diabetes Care. 2016.39(Suppl 1). Performed By: #### T ALEX, , LIPNF ####[facility] LABCLIA [id number] [place] [id number] [place] Potassium [Moles/Vol] 5.3 mmol/L High 3.7-5.1 [facility] Comment on above: Order Comment: Speci men Type: BLOOD SPECIMENOrdering Facility: [facility] Address: [address] [place] [id number] Performed By: #### T ALEX, , LIPNF ####[facility] LABCLIA [id number] [address] [address] [place] Protein [Mass/Vol] 7.1 g/dL Normal 6.3-8.0 [facility] Comment on above: Order Comment: Speci men Type: BLOOD SPECIMENOrdering Facility: [facility] Address: [address] [place] [address] Performed By: #### T 4FONIEL, 52411-2, LIPNF ####[facility] LABCLIA [id number] [facility] [address], [facility] [place] Sodium [Moles/Vol] 133 mmol/L Low 136-144 [facility] Comment on above: Order Comment: Speci men Type: BLOOD SPECIMENOrdering Facility: [facility] Address: [address] [place] [address] Performed By: #### T 4FONIEL, , LIPNF ####[facility] LABCLIA [id number] [place] [address] [place] Urea nitrogen [Mass/Vol] 27 mg/dL High 9-24 [facility] Comment on above: Order Comment: Speci men Type: BLOOD SPECIMENOrdering Facility: [facility] Address: [address] [place] [address] Performed By: #### T 4FONIEL, , LIPNF ####[facility] LABCLIA [id number] [facility] [place] [address] [place] HbA1c (Bld)on 12-22-2024 Average glucose Estimated from glycated hemoglobin (Bld) [Mass/Vol] 154 mg/dL Normal [facility] Comment on above: Order Comment: Speci men Type: BLOOD SPECIMENOrdering Facility: [facility] Address: [address] [place] [address] Result Comment: eAG: (Estimated average glucose) is a calculated value from HgbA1c and is franchise sales representative of the average blood glucose level in the last 2-3 month period. Performed By: #### 5 5454-3 ####[facility] LABCLIA [id number] [place] [id number] [place] HbA1c (Bld) [Mass fraction] 7.0 % High 4.3-5.6 [facility] Comment on above: Order Comment: Austinlee ann jiménez Type: BLOOD SPECIMENOrdering Facility: [facility] Address: [address] [place] [address] Result Comment: [place] Diabetes Association guidelines indicate that patients with HgbA1c in the range 5.7-6.4% are at increased risk for development of diabetes, and intervention by lifestyle modification may be beneficial. HgbA1c greater or equal to 6.5% is considered diagnostic of diabetes. Performed By: #### 5 5454-3 ####[facility] LABCLIA [id number] [address] LIPID PANEL, NONFASTINGon Cholesterol [Mass/Vol] 196 mg/dL Normal <200 [facility] Comment on above: Order Comment: Satn tino Type: BLOOD SPECIMENOrdering Facility: [facility] Address: [address] [place] [address] Result Comment: <200 mg/dL, Desirable 200-239 mg/dL, Borderline high>239 mg/dL, High Performed By: #### T 4FTI, 04655-9, LIPNF ####[facility] LABCLIA [id number] [place] [address] [place] HDL CHOLESTEROL, NF 51 mg/dL Normal >39 [facility] Comment on above: Order Comment: Austinlee ann jiménez Type: BLOOD SPECIMENOrdering Facility: [facility] Address: [address] [place] [address] Result Comment: 40-5 9 mg/dL, Acceptable>59 mg/dL, High: Negative risk factor for coronary heart disease<40 mg/dL, Low: Positive risk factor for coronary heart disease Performed By: #### T 4FTI, 18139-3, LIPNF ####[facility] LABCLIA [id number] [address] [place] LDL CHOLESTEROL CALCULATED, NF 114 mg/dL High <100 [facility] Comment on above: Order Comment: Speci men Type: BLOOD SPECIMENOrdering Facility: [facility] Address: [address] [place] [address] Result Comment: <100 mg/dL, Optimal 100-129 mg/dL, Near optimal/above optimal 130-159 mg/dL, Borderline high 160-189 mg/dL, High>189 mg/dL, Very highSecondary prevention optimal LDL Cholesterol levels are recommended to be <70 mg/dLLDL cholesterol is calculated using the Anderson-NIH equation. Performed By: #### T 4FTI, 81793-9, LIPNF ####[facility] LABIA [id number] [address] STATES OF [facility] LDL/HDL RATIO, NF 2.24 mg/dL Normal <2.54 [facility] Comment on above: Order Comment: [facility] Type: BLOOD SPECIMENOrdering Facility: [facility] Address: [address] [place] [address] Result Comment: Refe rence:1. National Cholesterol Education Program ATP III Guideline At-A-Glance Quick Desk Reference: National Heart, Lung, and Blood Handley. National Institutes of Health. 2001: NIH Publication No. 01-3305.2. An International Atherosclerosis Society position paper: global recommendations for the management of dyslipidemia: executive summary, Atherosclerosis. 2014: 232(2):410-413. Performed By: #### T 4FONIEL, 94055-4, LIPNF ####[facility] LABIA [id number] [address] [place] NON HDL CHOL, NF 145 mg/dL High <130 [facility] Comment on above: Order Comment: [facility] Type: BLOOD SPECIMENOrdering Facility: [facility] Address: [address] [place] [address] Result Comment: <130 mg/dL, Optimal 130-159 mg/dL, Near optimal/above optimal 160-189 mg/dL, Borderline high 190-219 mg/dL, High>219 mg/dL, Very highSecondary prevention optimal non HDL Cholesterol levels are recommended to be <100 mg/dL Performed By: #### T 4FTI, 26833-6, LIPNF ####[facility] LABCLIA [id number] [address] [address] [place] T CHOL/HDL RATIO NF 3.84 mg/dL Normal <5.10 [facility] Comment on above: Order Comment: Speci men Type: BLOOD SPECIMENOrdering Facility: [facility] Address: [address] [place] [address] Performed By: #### Екатерина JOHNSON, , LIPNF ####[facility] LABCLIA [id number] [place] [address] [place] TRIGLYCERIDES, NF 177 mg/dL High <150 [facility] Comment on above: Order Comment: Speci men Type: BLOOD SPECIMENOrdering Facility: [facility] Address: [address] [place] [address] Result Comment: <150 mg/dL, Normal 150-199 mg/dL, Borderline high 200-499 mg/dL, High>499 mg/dL, Very high Performed By: #### Екатерина JOHNSON, , LIPNF ####[facility] LABCLIA [id number] [place] [address] [place] VLDL CHOLESTEROL, NF 30 mg/dL High <30 [facility] Comment on above: Order Comment: Speci men Type: BLOOD SPECIMENOrdering Facility: [facility] Address: [address] [place] [address] Performed By: #### Екатерина JOHNSON, , LIPNF ####[facility] LABCLIA [id number] [place] [id number] [place] T4/FTI/T4Uon 12-22-2024 FTI 7.8 ug/dL Normal 5.3-10.8 [facility] Comment on above: Order Comment: Speci men Type: BLOOD SPECIMENOrdering Facility: [facility] Address: [address] [place] [address] Performed By: #### T ALEX, 83142-9, LIPNF ####[facility] LABIA [id number] [address] [address] [place] T4 [Mass/Vol] 7.8 ug/dL Normal 5.5-10.2 [facility] Comment on above: Order Comment: Speci men Type: BLOOD SPECIMENOrdering Facility: [facility] Address: [address] [place] [address] Performed By: #### T 4FONIEL, , LIPNF ####[facility] [id number] [place] [id number] [place] T4 uptake [Mass/Vol] 1.00 Normal 0.91-1.19 [facility] Comment on above: Order Comment: Speci men Type: BLOOD SPECIMENOrdering Facility: [facility] Address: [address] [place] [address] Performed By: #### T 4FONIEL, , LIPNF ####[facility] [id number] [place] [id number] [place] TSH SerPl-aCncon 12-22-2024 TSH Qn 1.280 m[IU]/L Normal 0.270-4.200 [facility] Comment on above: Order Comment: Speci men Type: BLOOD SPECIMENOrdering Facility: [facility] Address: [address] [place] [address] Performed By: #### 3 016-3 ####[facility] [id number] [address] [address] [place] VITAMIN D 25 HYDROXYon 12-22 25-hydroxyvitamin D3 [Mass/Vol] 34.9 ng/mL 31.0 - 80.0 ng/mL [facility] Comment on above: Classification of 25 [place] Vitamin D status: Deficiency/Insufficiency: < or = 30 ng/ml. Sufficiency/Optimal Levels: 31-80 ng/mL Toxicity: > 100 ng/mL. Test performed by chemiluminescent immunoassay. Carotid Duplex Ultrasoundon 12-21-2024 Carotid Duplex Ultrasound [facility] [address] [place] [address] Carotid Duplex Ultrasound 12/21/24 1108 MR#: [id number] Acct: [id number] Name: APRIL QUESADA Rep #: [id number] : 1940 84 From: Meir Heller MD Attending Dr: Rosalino Jean-Baptiste, WILDLIFE BIOLOGY TECHNICIAN-C Status: REG CLI Ordering Dr: Rosalino Jean-Baptiste WILDLIFE BIOLOGY TECHNICIAN WILDLIFE BIOLOGY TECHNICIAN-C Date: 12/21/24 Location: CVS Sex: M C Admitted: Reason For Study Reason For Study: CAROTID ARTERY DISEASE Rt. Velocities/BP Lt. Velocities/BP Prox CCA 81.8/15.5 cm/sec. Prox CCA 106.3/9.3 cm/sec. Mid CCA 60.0/9.5 cm/sec. Mid CCA 56.3/8.4 cm/sec. Dist CCA 64.4/12.7 cm/sec. Dist CCA 51.1/11.9 cm/sec. Prox ICA 95.2/34.7 cm/sec. Prox ICA 87.5/28.1 cm/sec. Mid ICA 64.2/21.5 cm/sec. Mid ICA 42.3/20.5 cm/sec. Dist ICA 48.5/12.7 cm/sec. Dist ICA 34.8/13.5 cm/sec. Rt. ICA/CCA = 95.2/60.0=1.6. Lt. ICA/CCA = 87.5/56.3=1.6. Prox ECA 137.4/5.7 cm/sec. Prox ECA 76.0/6.0 cm/sec. Rt. Vert. 27.1/0.0 cm/sec. Lt. Vert. 43.3/10.1 cm/sec. Right Extracranial There is heterogeneous, irregular atherosclerotic plaque noted in the right common carotid artery. There is heterogeneous, irregular atherosclerotic plaque noted in the right internal carotid artery. There is heterogeneous, irregular atherosclerotic plaque noted in the right external carotid artery. Antegrade flow is noted in the right vertebral artery. Abnormal Waveform Noted. Left Extracranial There is heterogeneous, irregular atherosclerotic plaque noted in the left common carotid artery. There is heterogeneous, irregular atherosclerotic plaque noted in the left internal carotid artery. The atherosclerotic plaque causes acoustic shadowing. There is heterogeneous, irregular atherosclerotic plaque noted in the left external carotid artery. Antegrade flow is noted in the left vertebral artery. Procedure Carotid Duplex 51444. This is a Carotid Duplex examination using B-mode, color flow and specral Doppler. Exam performed in department. VL/Carotid Duplex Ultrasound Interpretation Summary Mild (<50%) stenosis right extracranial internal carotid. Mild (<50%) stenosis left extracranial internal carotid. The Right vertebral is patent and antegrade with high resistance suggesting more distal stenosis/occlusion. The Left vertebral is patent and antegrade. Ordering Physician: Rosalino Jean-Baptiste Referring Physician: Enrrique Carmona Performed By: Joss Molina, Екатерина 12/21/24 1556 Date Meir Heller MD CC: ILIR Jean-Baptiste; Dr. Enrrique Carmona MD Date Dictated: 12/21/24 1108 Date Transcribed: 12/21/241555 Field Project Manager: Signed Normal [facility] Duplex ultrasound of carotid artery reportOrdered By: Meir Heller on 12-21-2024 Study report [facility] [address] [place] [address] Carotid Duplex Ultrasound 12/21/24 1108 MR#: [id number] Acct: [id number] Name: APRIL QUESADA Rep #:[id number] : 1940 84 From: Meir Powell Attending Dr: ILIR Wilcox Sta tus: REG CLI Ordering Dr: Rosalino Jean-Baptiste NP Date: 12/21/24 Location: CVS Sex: M C Admitted: Reason For Study Reason For Study: CAROTID ARTERY DISEASE Rt. Velocities/BP Lt. Velocities/BP Prox CCA 81.8/15.5 cm/sec. Prox CCA 106.3/9.3 cm/sec. Mid CCA 60.0/9.5 cm/sec. Mid CCA 56.3/8.4 cm/sec. Dist CCA 64.4/12.7 cm/sec. Dist CCA 51.1/11.9 cm/sec. Prox ICA 95.2/34.7 cm/sec. Prox ICA 87.5/28.1 cm/sec. Mid ICA 64.2/21.5 cm/sec. Mid ICA 42.3/20.5 cm/sec. Dist ICA 48.5/12.7 cm/sec. Dist ICA 34.8/13.5 cm/sec. Rt. ICA/CCA = 95.2/60.0=1.6. Lt. ICA/CCA = 87.5/56.3=1.6. Prox ECA 137.4/5.7 cm/sec. Prox ECA 76.0/6.0 cm/sec. Rt. Vert. 27.1/0.0 cm/sec. Lt. Vert. 43.3/10.1 cm/sec. Right Extracranial There is heterogeneous, irregular atherosclerotic plaque noted in the right common carotid artery. There is heterogeneous, irregular atherosclerotic plaque noted in the right internal carotid artery. There is heterogeneous, irregular atherosclerotic plaque noted in the right external carotid artery. Antegrade flow is noted in the right vertebral artery. Abnormal Waveform Noted. Left Extracranial There is heterogeneous, irregular atherosclerotic plaque noted in the left common carotid artery. There is heterogeneous, irregular atherosclerotic plaque noted in the left internal carotid artery. The atherosclerotic plaque causes acoustic shadowing. There is heterogeneous, irregular atherosclerotic plaque noted in the left external carotid artery. Antegrade flow is noted in the left vertebral artery. Procedure Carotid Duplex 32378. This is a Carotid Duplex examination using B-mode, color flow and specral Doppler. Exam performed in department. VL/Carotid Duplex Ultrasound Interpretation Summary Mild (<50%) stenosis right extracranial internal carotid. Mild (<50%) stenosis left extracranial internal carotid. The Right vertebral is patent and antegrade with high resistance suggesting moredistal stenosis/occlusion. The Left vertebral is patent and antegrade. Ordering Physician: Rosalino Jean-Baptiste Referring Physician: Enrrique Carmona Performed By: Joss Molina RVT 12/21/24 1556 Date _ Meir Heller MD CC: ILIR Jean-Baptiste; Dr. Enrrique Carmona MD ~ Date Dictated: 12/21/24 1108 Date Transcribed: 12/21/24 155 Field Project Manager: Signed [facility] Work Phone: Cardiology Visit Reporton Cardiology Visit Report [facility] [address] [place] [address] OFFICE VISIT Date of Service: 12/09/24 MR#: [id number] Acct: [id number] Name: APRIL QUESADA Rep #: [id number] : 1940 Provider: ILIR escalante Age/Sex: 84/M [place] [facility] [place]: Signed HPI HPI History of Present Illness Details: APRIL QUESADA, is a 84 M who presents to the office today for a cardiovascular outpatient follow-up. He has a history of atrial fibrillation with DC cardioversion on 02/12/17 which was initially successful but then reverted back to atrial fibrillation, hypertension, obesity, ocular migraines, mixed hyperlipidemia, anxiety disorder, peripheral vascular disease with carotid stenosis, and diabetes. He denies chest, arm, jaw, or neck discomfort. He denies palpitations. He denies bilateral lower extremity edema. He denies claudication. He states shortness of breath with activity such as going up steps. This is unchanged from previous. He denies shortness of breath at rest, orthopnea, or PND. He denies chronic cough. He denies significant, sudden weight gain. He acknowledges lightheadedness and dizziness. This is chronic. Nothing makes this worse. He denies near-syncope or syncope. He denies blood in urine, blood in stool, or epistaxis. He denies fever with chills. He denies myalgia. He denies fatigue. He acknowledges difficulty sleeping. His exercise level has remained stable. He states an increase in weakness. His activity is limited by knee issues. Intake Vital Signs 06/10/24 11:34 12/09/24 12:56 Height 5 ft 8 in 5 ft 8 in Weight: 195 lb 203 lb BMI 29.6 30.9 BP 136/87 H 136/69 H Blood Pressure Location Lt brachial Lt brachial Position Sitting Sitting Respiration 16 18 Pulse 80 56 L Pulse Source NIBP Monitor Intake Visit Reasons: 6 M FU Molded Parts Inspector Required: No Accompanied by: Son Allergies Cephalosporins Allergy (Verified 12/09/24 12:56) Rash doxycycline Allergy (Verified 12/09/24 12:56) Rash simvastatin (From Zocor) Adverse Reaction (Intermediate, Verified 12/09/24 12:56) Myalgias Medications ???Medication ???Instructions ???Recorded ???Confirmed ???Type clonidine HCl 0.1 mg tablet 0.1 mg PO DAILY 11/29/16 12/09/24 History fluticasone propionate 50 1 spray intranasal DAILY 12/03/23 12/09/24 History mcg/actuation nasal spray,suspension (Flonase Allergy Relief) rivaroxaban 20 mg tablet (Xarelto) 20 mg PO QDAY #30 tabs 12/10/23 12/09/24 Rx carvedilol 3.125 mg tablet (Coreg) 3.125 mg PO BID #180 tabs 12/09/24 Rx furosemide 20 mg tablet 20 mg PO DAILY PRN 12/09/24 History lisinopril 20 mg tablet 10 mg (1/2 x 20 mg) PO QDAY #30 12/09/24 Rx tabs Have you fallen in the past year?: No PFSH Medical History Skin cancer of scalp Essential hypertension Depression Anxiety BPH w urinary obs/LUTS Rosacea Type 2 diabetes mellitus without complications Hyperlipidemia Obesity Bilateral carotid artery stenosis Persistent atrial fibrillation Surgical History History of abdominal surgery H/O left knee surgery History of tonsillectomy and adenoidectomy History of cardioversion (02/12/17) History of left heart catheterization (01/16/17) Family History Daughter Atrial tachycardia RFA Brother CAD (coronary artery disease) Social History household members: spouse Smoking Status: Former smoker how long ago did patient quit smokin years ago alcohol intake: never substance use type: does not use caffeine: Yes Type: coffee Number of servings: 2 ROS Const Const: Positive for fatigue and weakness Eyes Eyes: Negative for change in vision ENT ENT: Positive for dizziness and balance problems Cardio Chest Pain: No Palpitations: No Edema: None Muscle aches with walking: None Resp Respiratory: Positive for SOB with activity; Negative for SOB at rest or SOB orthopnea SOB lying down GI GI: Negative nausea or heartburn : Negative for hematuria or frequent nighttime urination/ nocturia Musc Musc: Positive for balance problems Skin Skin: Negative non-healing lesions or rash Neuro Neuro: Positive for dizziness, lightheadedness and weakness; Negative for near syncope or syncope Endo Endo: Positive for fatigue Allergy Allergy/Immunology: Negative for rash Cardiology Exam Const Appearance: cooperative, healthy appearing, comfortable and no acute distress Nutritional Appearance: well nourished and obese Orientation: alert, awake and oriented x3 Head Head: normal to inspec (more content not included)... Normal [facility] Cort[facility] post dose dexamethasone [Mass/Vol] 1.1 ug/dL Normal <1.8 [facility] Comment on above: Order Comment: Speci men Type: BLOOD SPECIMENOrdering Facility: [facility] Address: [address] [place] [address] Result Comment: Afte r overnight 1 mg dexamethasone, an director of early childhood cortisol of <1.8 ug/dL may indicate an adequate cortisol suppression. This result should be interpreted within the clinical context and other test results.Jennifer et al. Evidence for the Low Dose Dexamethasone Suppression Test to Screen for [place]'s Syndrome - Recommendations for a Protocol for Biochemistry Laboratories." 1996 Mariah. Clin. Biochem. 34 222-229. Performed By: #### 4 7851-1 ####[facility] LABCLIA [id number] [address] OF [facility] DEXAMETHASONEon 09-20-2024 DEXAMETHASONE 275.2 ng/dL Normal [facility] Comment on above: Order Comment: Speci men Type: BLOOD SPECIMENOrdering Facility: [facility] Address: [address] [place] [address] Result Comment: INTE RPRETIVE INFORMATION: Dexamethasone, Serum or Plasma by LC-MS/MSAdults baseline: Less than 50 ng/dL8:00 AM draw following 1 mg dexamethasone between 11:00 pm and12:00 am the previous evenin - 295 ng/dL8:00 AM draw following 8 mg dexamethasone (4 x 2 mg doses) [id number]:00 pm and 12:00 am the previous evenin - 2850 ng/dLThis test was developed and its performance characteristicsdetermined by [facility]. It has not been cleared orapproved by the [place] Food and Drug Administration. This test wasperformed in a CLIA certified laboratory and is intended forclinical purposes.Performed By: [facility] [place], [place] [id number] Director: Matt Harris MD, PhDCLIA Number: [id number] Performed By: #### D EXA ####[facility] LABORATORIESIA [id number] [place] [address] CNOVon 09-16-2024 CNOV Normal [facility] CREATININE BLDon 09-07-2024 Creatinine [Mass/Vol] 0.94 mg/dL Normal 0.73-1.22 [facility] Comment on above: Order Comment: Speci men Type: BLOOD SPECIMENOrdering Facility: [facility] Address: [address] [place] [address] Performed By: #### C RET1 ####[facility] [id number] [place] [address] [place] Creatinine and Glomerular filtration rate.predicted panel (S/P/Bld) 79 mL/min/1.73m??? Normal >=60 [facility] Comment on above: Order Comment: Speci men Type: BLOOD SPECIMENOrdering Facility: [facility] Address: [address] [place] [address] Result Comment: Sun mated Glomerular Filtration Rate (eGFR) is calculated using the 2020 CKD-EPI creatinine equation. This equation utilizes serum creatinine, sex, and age as parameters. The creatinine assay has traceable calibration to isotope dilution-mass spectrometry. Refer to KDIGO guidelines for clinical interpretation. In patients with unstable renal function, e.g. those with acute kidney injury, the eGFR may not accurately reflect actual GFR. Performed By: #### C RET1 ####[facility] [id number] [place] [address] [place] CT ABD/PEL W IVCONon 025 CT ABD/PEL W IVCON Normal [facility] ACTH Plas-ncon 07-06-2024 Corticotropin (P) [Mass/Vol] 77.9 pg/mL High 7.2-63.3 [facility] Comment on above: Order Comment: Speci men Type: BLOOD SPECIMENOrdering Facility: [facility] Address: [address] [place] [address] Result Comment: ACTH Reference Range: 7-10 am: 7.2 - 63.3 pg/mL Performed By: #### 2 141-0 ####[facility] LABCLIA [id number] [place] [address] [place] Cortis SerPl-mCncon 07-06-19 25 Cortisol [Mass/Vol] 14.5 ug/dL Normal 4.8-19.5 [facility] Comment on above: Order Comment: Speci men Type: BLOOD SPECIMENOrdering Facility: [facility] Address: [address] [place] [address] Result Comment: Prov ided reference range is from 6-10 AM sample collection time.Cortisol Reference Range: 6-10 AM = 4.8-19.5 ug/dL, 4-8 PM = 2.5-11.9 ug/dL Performed By: #### 2 143-6 ####[facility] LABCLIA [id number] [facility] [address] [id number] [address] [place] CNOVon 07-05-2024 CNOV Normal [facility] CNPNon 06-22-2024 CNPN Normal [facility] Basic metabolic 2000 panelon 06-19-2024 Anion gap [Moles/Vol] 14 mmol/L 8 - 15 mmol/L [facility] Calcium [Mass/Vol] 10.2 mg/dL 8.5 - 10. 2 mg/dL [facility] Chloride [Moles/Vol] 102 mmol/L 98 - 10 7 mmol/L [facility] CO2 [Moles/Vol] 22 mmol/L 22 - 30 mmol/L [facility] Creatinine [Mass/Vol] 0.95 mg/dL 0.73 - 1.22 mg/dL [facility] GFR/1.73 sq M.predicted among non-blacks MDRD (S/P/Bld) [Vol rate/Area] 79 mL/min/{1.73_m2} - PINF [facility] Comment on above: Estimated Glomerular Filtration Rate (eGFR) is calculated using the 2020 CKD-EPI creatinine equation. This equation utilizes serum creatinine, sex, and age as parameters. The creatinine assay has traceable calibration to isotope dilution-mass spectrometry. Refer to KDIGO guidelines for clinical interpretation. In patients with unstable renal function, e.g. those with acute kidney injury, the eGFR may not accurately reflect actual GFR. Glucose [Mass/Vol] 158 mg/dL High 74 - 99 mg/dL [facility] Comment on above: The [place] Diabete s Association (ADA) provides guidance for cutoff values for fasting glucose and random glucose. The ADA defines fasting as no caloric intake for at least 8 hours. Fasting plasma glucose results between 100 to 125 mg/dL indicate increased risk for diabetes (prediabetes). Fasting plasma glucose results greater than or equal to 126 mg/dL meet the criteria for diagnosis of diabetes. In the absence of unequivocal hyperglycemia, results should be confirmed by repeat testing. In a patient with classic symptoms of hyperglycemia or hyperglycemic crisis, random plasma glucose results greater than or equal to 200 mg/dL meet the criteria for diagnosis of diabetes. Reference: Standards of Medical Care in Diabetes 2016, [place] Diabetes Association. Diabetes Care. 2016.39(Suppl 1). Interpretation and review of laboratory results Abnormal [facility] Potassium [Moles/Vol] 5.3 mmol/L High 3.7 - 5.1 mmol/L [facility] Sodium [Moles/Vol] 138 mmol/L 136 - 144 mmol/L [facility] Urea nitrogen [Mass/Vol] 25 mg/dL High 9 - 24 mg/dL [facility] PTH INTACTon 06-19-2024 Parathyrin.intact [Mass/Vol] 51 pg/mL 15 - 65 pg/mL [facility] Parathyrin.intact [Mass/Vol] on 06-19-2024 Interpretation and review of laboratory results Normal [facility] 25(OH)D3 SerPl-mCncon 2023 25-hydroxyvitamin D3 [Mass/Vol] 42.2 ng/mL Normal 31.0-80.0 [facility] Comment on above: Order Comment: Speci men Type: BLOOD SPECIMENOrdering Facility: [facility] Address: [address] [place] [address] Result Comment: Clas sification of 25 [place] Vitamin D status:Deficiency/Insufficiency: < or = 30 ng/ml.Sufficiency/Optimal Levels: 31-80 ng/mLToxicity: > 100 ng/mL.Test performed by chemiluminescent immunoassay. Performed By: #### 1 989-3 ####[facility] LABCLIA [id number] [place] [address] [place] 25-hydroxyvitamin D3 [Mass/V ol]on 06-18-2024 Interpretation and review of laboratory results Normal [facility] The reference range interval was based on an analysis of samples from healthy adults and may not pertain to children from 0-18 years old. [facility] ALBUMIN/CREATININE RATIO, UR INEon 06-18-2024 Albumin DL <= 20 mg/L (U) [Mass/Vol] 34.3 mg/L Normal [facility] Comment on above: Order Comment: Speci men Type: URINE SPECIMENOrdering Facility: [facility] Address: [address] [place] [address] Performed By: #### U ACR ####[facility] LABCLIA [id number] [place] [address] [place] Albumin/Creatinine (U) [Mass ratio] 34 mg/g High <30 [facility] Comment on above: Order Comment: Speci men Type: URINE SPECIMENOrdering Facility: [facility] Address: [address] [place] [address] Result Comment: Adul t Male and Female Nephrotic Criteria:<30 mg/g is considered normal to mildly mbxhghthe46-743 mg/g is considered moderately increased>300 mg/g is considered severely increasedKDIGO. (2013). KDIGO 2012 Clinical Practice Guideline for the Evaluation and Management of Chronic Kidney Disease. Official Journal of the International Society of Nephrology, 3(1), 1-150. Performed By: #### U ACR ####[facility] LABCLIA [id number] [place] [address] [place] Creatinine (U) [Mass/Vol] 100.9 mg/dL Normal 20.0-300.0 [facility] Comment on above: Order Comment: Speci men Type: URINE SPECIMENOrdering Facility: [facility] Address: [address] [place] [address] Performed By: #### U ACR ####[facility] LABCLIA [id number] [place] [address] [place] Basic metabolic 2000 panelon 06-18-2024 Anion gap [Moles/Vol] 14 mmol/L Normal 8-15 [facility] Comment on above: Order Comment: Speci men Type: BLOOD SPECIMENOrdering Facility: [facility] Address: [address] [place] [address] Performed By: #### 1 9123-9, 2731-8, 95121-8 ####[facility] LABCLIA [id number] [place] [id number] [place] Calcium [Mass/Vol] 10.2 mg/dL Normal 8.5-10.2 [facility] Comment on above: Order Comment: Speci men Type: BLOOD SPECIMENOrdering Facility: [facility] Address: [address] [place] [address] Performed By: #### 1 9123-9, 273-8, 63581-7 ####[facility] LABCLIA [id number] [place] [id number] [place] Chloride [Moles/Vol] 102 mmol/L Normal 98-107 [facility] Comment on above: Order Comment: Speci men Type: BLOOD SPECIMENOrdering Facility: [facility] Address: [address] [place] [address] Performed By: #### 1 9123-9, 2731-01, 12962-2 ####[facility] LABCLIA [id number] [place] [address] [place] CO2 [Moles/Vol] 22 mmol/L Normal 22-30 [facility] Comment on above: Order Comment: Speci men Type: BLOOD SPECIMENOrdering Facility: [facility] Address: [address] [place] [address] Performed By: #### 1 9123-9, 2731-01, 49960-5 ####[facility] LABCLIA [id number] [place] [address] [place] Creatinine [Mass/Vol] 0.95 mg/dL Normal 0.73-1.22 [facility] Comment on above: Order Comment: Speci men Type: BLOOD SPECIMENOrdering Facility: [facility] Address: [address] [place] [address] Performed By: #### 1 9123-9, 273-8, 13634-4 ####[facility] LABCLIA [id number] [place] [id number] [place] Creatinine and Glomerular filtration rate.predicted panel (S/P/Bld) 79 mL/min/1.73m??? Normal >=60 [facility] Comment on above: Order Comment: Stan jiménez Type: BLOOD SPECIMENOrdering Facility: [facility] Address: [address] [place] [address] Result Comment: Sun mated Glomerular Filtration Rate (eGFR) is calculated using the 2020 CKD-EPI creatinine equation. This equation utilizes serum creatinine, sex, and age as parameters. The creatinine assay has traceable calibration to isotope dilution-mass spectrometry. Refer to KDIGO guidelines for clinical interpretation. In patients with unstable renal function, e.g. those with acute kidney injury, the eGFR may not accurately reflect actual GFR. Performed By: #### 1 9123-9, 273-8, 42555-9 ####[facility] LABCLIA [id number] [place] [address] [place] Glucose [Mass/Vol] 158 mg/dL High 74-99 [facility] Comment on above: Order Comment: Stan jiménez Type: BLOOD SPECIMENOrdering Facility: [facility] Address: [address] [place] [address] Result Comment: The [place] Diabetes Association (ADA) provides guidance for cutoff values for fasting glucose and random glucose. The ADA defines fasting as no caloric intake for at least 8 hours. Fasting plasma glucose results between 100 to 125 mg/dL indicate increased risk for diabetes (prediabetes).Fasting plasma glucose results greater than or equal to 126 mg/dL meet the criteria for diagnosis of diabetes. In the absence of unequivocal hyperglycemia, results should be confirmed by repeat testing. In a patient with classic symptoms of hyperglycemia or hyperglycemic crisis, random plasma glucose results greater than or equal to 200 mg/dL meet the criteria for diagnosis of diabetes.Reference: Standards of Medical Care in Diabetes 2016, [place] [employer] Association. Diabetes Care. 2016.39(Suppl 1). Performed By: #### 1 9123-9, 2731-8, 18038-5 ####[facility] LABCLIA [id number] [place] [address] [place] Potassium [Moles/Vol] 5.3 mmol/L High 3.7-5.1 [facility] Comment on above: Order Comment: Speci men Type: BLOOD SPECIMENOrdering Facility: [facility] Address: [address] [place] [address] Performed By: #### 1 9123-9, 273-8, 31626-6 ####[facility] LABCLIA [id number] [place] [address] [place] Sodium [Moles/Vol] 138 mmol/L Normal 136-144 [facility] Comment on above: Order Comment: Speci men Type: BLOOD SPECIMENOrdering Facility: [facility] Address: [address] [place] [address] Performed By: #### 1 9123-9, 2730-8, 31285-9 ####[facility] LABCLIA [id number] [place] [address] [place] Urea nitrogen [Mass/Vol] 25 mg/dL High 9-24 [facility] Comment on above: Order Comment: Speci men Type: BLOOD SPECIMENOrdering Facility: [facility] Address: [address] [place] [address] Performed By: #### 1 9123-9, 2730-8, 10762-6 ####[facility] LABCLIA [id number] [place] [address] [place] CNOVon 06-18-2024 CNOV Normal [facility] Calcium.ionized [Moles/Vol]o n 06-18-2024 Calcium.ionized (Bld) [Mass/Vol] 1.32 mmol/L High 1.08 - 1.30 mmol/L [facility] Calcium.ionized adjusted to pH 7.4 (Bld) [Moles/Vol] 1.31 mmol/L High 1.08 - 1.30 mmol/L [facility] Interpretation and review of laboratory results Abnormal [facility] Calcium.ionized (Bld) [Mass/Vol] 1.32 mmol/L High 1.08-1.30 [facility] Comment on above: Order Comment: Stan jiménez Type: BLOOD SPECIMENOrdering Facility: [facility] Address: [address] [place] [address] Performed By: #### 1 995-0 ####[facility] LABIA [id number] [place] [address] [place] Calcium.ionized adjusted to pH 7.4 (Bld) [Moles/Vol] 1.31 mmol/L High 1.08-1.30 [facility] Comment on above: Order Comment: Stan jiménez Type: BLOOD SPECIMENOrdering Facility: [facility] Address: [address] [place] [address] Performed By: #### 1 995-0 ####[facility] [id number] [place] [address] [place] HbA1c (Bld)on 06-18-2024 Average glucose Estimated from glycated hemoglobin (Bld) [Mass/Vol] 137 mg/dL Normal [facility] Comment on above: Order Comment: Stan jiménez Type: BLOOD SPECIMENOrdering Facility: [facility] Address: [address] [place] [address] Result Comment: eAG: (Estimated average glucose) is a calculated value from HgbA1c and is franchise sales representative of the average blood glucose level in the last 2-3 month period. Performed By: #### 5 5454-3 ####[facility] [id number] [place] [address] [place] HbA1c (Bld) [Mass fraction] 6.4 % High 4.3-5.6 [facility] Comment on above: Order Comment: Stan jiménez Type: BLOOD SPECIMENOrdering Facility: [facility] Address: [address] [place] [address] Result Comment: [place] Diabetes Association guidelines indicate that patients with HgbA1c in the range 5.7-6.4% are at increased risk for development of diabetes, and intervention by lifestyle modification may be beneficial. HgbA1c greater or equal to 6.5% is considered diagnostic of diabetes. Performed By: #### 5 5454-3 ####[facility] LABIA [id number] [place] [id number] [place] Hemoccult Stl Ql IAon 2023 Lower GI hemoglobin IA Ql (Stl) Negative Normal Negative [facility] Comment on above: Order Comment: Speci men Type: STOOL SPECIMENOrdering Facility: [facility] Address: [address] [place] [address] Performed By: #### 2 9771-3 ####[facility] LABIA [id number] [place] [address] [place] Magnesium [facility] 06-18 Magnesium [Mass/Vol] 2.4 mg/dL High 1.7-2.3 [facility] Comment on above: Order Comment: Speci men Type: BLOOD SPECIMENOrdering Facility: [facility] Address: [address] [place] [address] Performed By: #### 1 9123-9, 2731-8, 09387-9 ####[facility] LABIA [id number] [place] [address] [place] PTH-Intact [facility] - Parathyrin.intact [Mass/Vol] 51 pg/mL Normal 15-65 [facility] Comment on above: Order Comment: Speci men Type: BLOOD SPECIMENOrdering Facility: [facility] Address: [address] [place] [address] Performed By: #### 1 9123-9, 2731-8, 22875-1 ####[facility] LABIA [id number] [place] [id number] [place] VITAMIN D 25 HYDROXYon 06-18 25-hydroxyvitamin D3 [Mass/Vol] 42.2 ng/mL 31.0 - 80.0 ng/mL [facility] Comment on above: Classification of 25 [place] Vitamin D status: Deficiency/Insufficiency: < or = 30 ng/ml. Sufficiency/Optimal Levels: 31-80 ng/mL Toxicity: > 100 ng/mL. Test performed by chemiluminescent immunoassay. Cardiology Visit Reporton Cardiology Visit Report [facility] [address] [place] [address] OFFICE VISIT Date of Service: 06/10/24 MR#: [id number] Acct: [id number] Name: APRIL QUESADA Rep #: [id number] : 1940 Provider: ILIR escalante Age/Sex: 83/M Location: [facility] Status: Signed HPI HPI History of Present Illness Details: APRIL QUESADA, is a 83 M who presents to the office today for a cardiovascular outpatient follow-up. He has a history of atrial fibrillation with DC cardioversion on 02/12/17 which was initially successful but then reverted back to atrial fibrillation, hypertension, obesity, ocular migraines, mixed hyperlipidemia, anxiety disorder, peripheral vascular disease with carotid stenosis, and diabetes. He denies chest, arm, jaw, or neck discomfort. He denies palpitations. He denies bilateral lower extremity edema. He denies claudication. He states shortness of breath with activity such as going up steps. This is improved since last visit. He denies shortness of breath at rest, orthopnea, or PND. He denies chronic cough. He denies significant, sudden weight gain. He acknowledges lightheadedness and dizziness. This is chronic. Nothing makes this worse. He denies near-syncope or syncope. He denies blood in urine, blood in stool, or epistaxis. He denies fever with chills. He denies myalgia. He denies fatigue. He acknowledges difficulty sleeping. His exercise level has remained stable. Intake Vital Signs 03/04/24 13:03 06/10/24 11:34 Height 5 ft 8 in 5 ft 8 in Weight: 195 lb BMI 29.6 BP 136/87 H Blood Pressure Location Lt brachial Position Sitting Respiration 16 Pulse 80 Pulse Source NIBP Intake Visit Reasons: 3 M FU Molded Parts Inspector Required: No Accompanied by: Son Is patient in pain?: No Allergies Cephalosporins Allergy (Verified 06/10/24 11:39) Rash doxycycline Allergy (Verified 06/10/24 11:39) Rash simvastatin (From Zocor) Adverse Reaction (Intermediate, Verified 06/10/24 11:39) Myalgias Medications ???Medication ???Instructions ???Recorded ???Confirmed ???Type clonidine HCl 0.1 mg tablet 0.1 mg PO DAILY 11/29/16 06/10/24 History allopurinol 100 mg tablet 100 mg PO DAILY 03/31/22 06/10/24 History fluticasone propionate 50 1 spray intranasal DAILY 12/03/23 06/10/24 History mcg/actuation nasal spray,suspension (Flonase Allergy Relief) furosemide 20 mg tablet 20 mg PO DAILY #30 tabs 12/03/23 06/10/24 Rx rivaroxaban 20 mg tablet (Xarelto) 20 mg PO QDAY #30 tabs 12/10/23 06/10/24 Rx amlodipine 10 mg tablet 10 mg PO DAILY 03/04/24 06/10/24 History atorvastatin 20 mg tablet 20 mg PO QHS 03/04/24 06/10/24 History carvedilol 3.125 mg tablet (Coreg) 3.125 mg PO BID 03/04/24 06/10/24 History lisinopril 20 mg tablet 20 mg PO QDAY 06/10/24 06/10/24 History metformin 500 mg tablet,extended 500 mg PO QDAY 06/10/24 06/10/24 History release 24 hr Ejection fraction %: 55 Have you fallen in the past year?: No PFSH Medical History Skin cancer of scalp Essential hypertension Depression Anxiety BPH w urinary obs/LUTS Rosacea Type 2 diabetes mellitus without complications Hyperlipidemia Obesity Bilateral carotid artery stenosis Persistent atrial fibrillation Surgical History History of abdominal surgery H/O left knee surgery History of tonsillectomy and adenoidectomy History of cardioversion (02/12/17) History of left heart catheterization (01/16/17) Family History Daughter Atrial tachycardia RFA Brother CAD (coronary artery disease) Social History household members: spouse Smoking Status: Former smoker how long ago did patient quit smokin years ago alcohol intake: never substance use type: does not use caffeine: Yes Type: coffee Number of servings: 2 ROS Const Const: Positive for difficulty sleeping; Negative for fatigue or weakness Eyes Eyes: Negative for change in vision ENT ENT: Positive for dizziness; Negative for balance problems Cardio Chest Pain: No Palpitations: No Edema: None Muscle aches with walking: None Resp Respiratory: Positive for SOB with activity; Negative for SOB at rest or SOB orthopnea SOB lying down GI GI: Negative nausea or heartburn : Negative for hematuria or frequent nighttime urination/ nocturia Musc Musc: Negative for balance problems Skin Skin: Negative non-healing lesions or rash Neuro Neuro: Positive for dizziness, lightheadedness and other (Foggy); Negative for near syncope, syncope or weakness Endo Endo: Negative for fatigue Allergy Allergy/Immunology: Negative for rash Cardiology Exam Const (more content not included)... Normal [facility] 06-03-2024 [facility] Normal [facility] 06-02-2024 [facility] Normal [facility] Basic metabolic 2000 panelon 06-01-2024 Anion gap [Moles/Vol] 9 mmol/L Normal 8-15 [facility] Comment on above: Order Comment: Speci men Type: BLOOD SPECIMENOrdering Facility: [facility] Address: [address] [place] [address] Performed By: #### 2 4321-2 ####[facility] LABCLIA [id number] [place] [address] [place] Calcium [Mass/Vol] 10.3 mg/dL High 8.5-10.2 [facility] Comment on above: Order Comment: Speci men Type: BLOOD SPECIMENOrdering Facility: [facility] Address: [address] [place] [address] Performed By: #### 2 4321-2 ####[facility] LABCLIA [id number] [place] [address] [place] Chloride [Moles/Vol] 98 mmol/L Normal 98-107 [facility] Comment on above: Order Comment: Speci men Type: BLOOD SPECIMENOrdering Facility: [facility] Address: [address] [place] [address] Performed By: #### 2 4321-2 ####[facility] LABIA [id number] [place] [address] [place] CO2 [Moles/Vol] 28 mmol/L Normal 22-30 [facility] Comment on above: Order Comment: Speci men Type: BLOOD SPECIMENOrdering Facility: [facility] Address: [address] [place] [address] Performed By: #### 2 4321-2 ####[facility] LABCLIA [id number] [place] [address] [place] Creatinine [Mass/Vol] 1.15 mg/dL Normal 0.73-1.22 [facility] Comment on above: Order Comment: Speci men Type: BLOOD SPECIMENOrdering Facility: [facility] Address: [address] [place] [address] Performed By: #### 2 4321-2 ####[facility] LABIA [id number] [place] [address] [place] Creatinine and Glomerular filtration rate.predicted panel (S/P/Bld) 63 mL/min/1.73m??? Normal >=60 [facility] Comment on above: Order Comment: Speci men Type: BLOOD SPECIMENOrdering Facility: [facility] Address: [address] [place] [address] Result Comment: Sun mated Glomerular Filtration Rate (eGFR) is calculated using the 2020 CKD-EPI creatinine equation. This equation utilizes serum creatinine, sex, and age as parameters. The creatinine assay has traceable calibration to isotope dilution-mass spectrometry. Refer to KDIGO guidelines for clinical interpretation. In patients with unstable renal function, e.g. those with acute kidney injury, the eGFR may not accurately reflect actual GFR. Performed By: #### 2 4321-2 ####[facility] LABCLIA [id number] [place] [address] [place] Glucose [Mass/Vol] 74 mg/dL Normal 74-99 [facility] Comment on above: Order Comment: Speci men Type: BLOOD SPECIMENOrdering Facility: [facility] Address: [address] [place] [address] Result Comment: The [place] Diabetes Association (ADA) provides guidance for cutoff values for fasting glucose and random glucose. The ADA defines fasting as no caloric intake for at least 8 hours. Fasting plasma glucose results between 100 to 125 mg/dL indicate increased risk for diabetes (prediabetes).Fasting plasma glucose results greater than or equal to 126 mg/dL meet the criteria for diagnosis of diabetes. In the absence of unequivocal hyperglycemia, results should be confirmed by repeat testing. In a patient with classic symptoms of hyperglycemia or hyperglycemic crisis, random plasma glucose results greater than or equal to 200 mg/dL meet the criteria for diagnosis of diabetes.Reference: Standards of Medical Care in Diabetes 2016, [place] [employer]. Diabetes Care. 2016.39(Suppl 1). Performed By: #### 2 4321-2 ####[facility] LABCLIA [id number] [place] [address] [place] Potassium [Moles/Vol] 5.5 mmol/L High 3.7-5.1 [facility] Comment on above: Order Comment: Speci men Type: BLOOD SPECIMENOrdering Facility: [facility] Address: [address] [place] [address] Performed By: #### 2 4321-2 ####[facility] LABCLIA [id number] [place] [address] [place] Sodium [Moles/Vol] 135 mmol/L Low 136-144 [facility] Comment on above: Order Comment: Speci men Type: BLOOD SPECIMENOrdering Facility: [facility] Address: [address] [place] [address] Performed By: #### 2 4321-2 ####[facility] LABCLIA [id number] [place] [address] [place] Urea nitrogen [Mass/Vol] 30 mg/dL High 9-24 [facility] Comment on above: Order Comment: Speci men Type: BLOOD SPECIMENOrdering Facility: [facility] Address: [address] [place] [address] Performed By: #### 2 4321-2 ####[facility] LABCLIA [id number] [place] [address] [place] CARBOXYHEMOGLOBIN VENon 05-23 Carboxyhemoglobin (BldV) [Mass fraction] 1.6 % Normal 0.0-2.0 [facility] Comment on above: Order Comment: Speci men Type: BLOOD SPECIMENOrdering Facility: [facility] Address: [address] [place] [address] Result Comment: Carb oxyhemoglobin Reference Range for Smokers: 2.0-8.0% Performed By: #### C OWBV ####[facility] LABCLIA [id number] [place] [address] [place] CBC W Auto Differential pane l (Bld)on 06-01-2024 Basophils (Bld) [#/Vol] 0.11 10*3/uL High <0.11 [facility] Comment on above: Order Comment: Speci men Type: BLOOD SPECIMENOrdering Facility: [facility] Address: [address] [place] [address] Performed By: #### 5 7021-8 ####[facility] LABCLIA [id number] [place] [address] [place] Basophils/100 WBC (Bld) 1.3 % Normal [facility] Comment on above: Order Comment: Speci men Type: BLOOD SPECIMENOrdering Facility: [facility] Address: [address] [place] [address] Performed By: #### 5 7021-8 ####[facility] LABCLIA [id number] [place] [address] [place] Differential cell count method Nom (Bld) Auto Normal [facility] Comment on above: Order Comment: Speci men Type: BLOOD SPECIMENOrdering Facility: [facility] Address: [address] [place] [address] Performed By: #### 5 7021-8 ####[facility] LABCLIA [id number] [place] [address] [place] Eosinophils (Bld) [#/Vol] 10*3/uL Normal <0.46 [facility] Comment on above: Order Comment: Speci men Type: BLOOD SPECIMENOrdering Facility: [facility] Address: [address] [place] [address] Performed By: #### 5 7021-8 ####[facility] LABCLIA [id number] [place] [address] [place] Eosinophils/100 WBC (Bld) 0.1 % Normal [facility] Comment on above: Order Comment: Speci men Type: BLOOD SPECIMENOrdering Facility: [facility] Address: [address] [place] [address] Performed By: #### 5 7021-8 ####[facility] LABCLIA [id number] [place] [address] [place] Erythrocyte distribution width (RBC) [Ratio] 13.0 % Normal 11.5-15.0 [facility] Comment on above: Order Comment: Speci men Type: BLOOD SPECIMENOrdering Facility: [facility] Address: [address] [place] [address] Performed By: #### 5 7021-8 ####[facility] LABCLIA [id number] [place] [address] [place] Hematocrit (Bld) [Volume fraction] 51.5 % High 39.0-51.0 [facility] Comment on above: Order Comment: Speci men Type: BLOOD SPECIMENOrdering Facility: [facility] Address: [address] [place] [address] Performed By: #### 5 7021-8 ####[facility] LABCLIA [id number] [place] [address] [place] Hemoglobin (Bld) [Mass/Vol] 16.9 g/dL Normal 13.0-17.0 [facility] Comment on above: Order Comment: Speci men Type: BLOOD SPECIMENOrdering Facility: [facility] Address: [address] [place] [address] Performed By: #### 5 7021-8 ####[facility] LABCLIA [id number] [place] [address] [place] Immature granulocytes (Bld) [#/Vol] 10*3/uL Normal <0.10 [facility] Comment on above: Order Comment: Speci men Type: BLOOD SPECIMENOrdering Facility: [facility] Address: [address] [place] [address] Performed By: #### 5 7021-8 ####[facility] LABCLIA [id number] [place] [address] [place] Immature granulocytes/100 WBC (Bld) 0.2 % Normal [facility] Comment on above: Order Comment: Speci men Type: BLOOD SPECIMENOrdering Facility: [facility] Address: [address] [place] [address] Performed By: #### 5 7021-8 ####[facility] LABCLIA [id number] [place] [address] [place] Lymphocytes (Bld) [#/Vol] 1.87 10*3/uL Normal 1.00-4.00 [facility] Comment on above: Order Comment: Speci men Type: BLOOD SPECIMENOrdering Facility: [facility] Address: [address] [place] [address] Performed By: #### 5 7021-8 ####[facility] LABCLIA [id number] [place] [address] [place] Lymphocytes/100 WBC (Bld) 22.6 % Normal [facility] Comment on above: Order Comment: Speci men Type: BLOOD SPECIMENOrdering Facility: [facility] Address: [address] [place] [address] Performed By: #### 5 7021-8 ####[facility] [id number] [place] [address] [place] MCH (RBC) [Entitic mass] 30.8 pg Normal 26.0-34.0 [facility] Comment on above: Order Comment: Speci men Type: BLOOD SPECIMENOrdering Facility: [facility] Address: [address] [place] [address] Performed By: #### 5 7021-8 ####[facility] [id number] [place] [address] [place] MCHC (RBC) [Mass/Vol] 32.8 g/dL Normal 30.5-36.0 [facility] Comment on above: Order Comment: Speci men Type: BLOOD SPECIMENOrdering Facility: [facility] Address: [address] [place] [address] Performed By: #### 5 7021-8 ####[facility] [id number] [place] [address] [place] MCV (RBC) [Entitic vol] 94.0 fL Normal 80.0-100.0 [facility] Comment on above: Order Comment: Speci men Type: BLOOD SPECIMENOrdering Facility: [facility] Address: [address] [place] [address] Performed By: #### 5 7021-8 ####[facility] [id number] [place] [address] [place] Monocytes (Bld) [#/Vol] 0.75 10*3/uL Normal <0.87 [facility] Comment on above: Order Comment: Speci men Type: BLOOD SPECIMENOrdering Facility: [facility] Address: [address] [place] [address] Performed By: #### 5 7021-8 ####[facility] LABCLIA [id number] [place] [id number] [place] Monocytes/100 WBC (Bld) 9.0 % Normal [facility] Comment on above: Order Comment: Speci men Type: BLOOD SPECIMENOrdering Facility: [facility] Address: [address] [place] [address] Performed By: #### 5 7021-8 ####[facility] LABCLIA [id number] [place] [address] [place] Neutrophils (Bld) [#/Vol] 5.53 10*3/uL Normal 1.45-7.50 [facility] Comment on above: Order Comment: Speci men Type: BLOOD SPECIMENOrdering Facility: [facility] Address: [address] [place] [address] Performed By: #### 5 7021-8 ####[facility] LABCLIA [id number] [place] [address] [place] Neutrophils/100 WBC (Bld) 66.8 % Normal [facility] Comment on above: Order Comment: Speci men Type: BLOOD SPECIMENOrdering Facility: [facility] Address: [address] [place] [address] Performed By: #### 5 7021-8 ####[facility] LABCLIA [id number] [place] [address] [place] Nucleated RBC (Bld) [#/Vol] 10*3/uL Normal <0.01 [facility] Comment on above: Order Comment: Speci men Type: BLOOD SPECIMENOrdering Facility: [facility] Address: [address] [place] [address] Performed By: #### 5 7021-8 ####[facility] LABCLIA [id number] [place] [address] [place] Nucleated RBC/100 WBC (Bld) [Ratio] 0.0 /100 WBC Normal [facility] Comment on above: Order Comment: Speci men Type: BLOOD SPECIMENOrdering Facility: [facility] Address: [address] [place] [address] Performed By: #### 5 7021-8 ####[facility] LABCLIA [id number] [place] [address] [place] Platelet mean volume (Bld) [Entitic vol] 10.1 fL Normal 9.0-12.7 [facility] Comment on above: Order Comment: Speci men Type: BLOOD SPECIMENOrdering Facility: [facility] Address: [address] [place] [address] Performed By: #### 5 7021-8 ####[facility] LABIA [id number] [place] [address] [place] Platelets (Bld) [#/Vol] 234 10*3/uL Normal 150-400 [facility] Comment on above: Order Comment: Speci men Type: BLOOD SPECIMENOrdering Facility: [facility] Address: [address] [place] [address] Performed By: #### 5 7021-8 ####[facility] LABIA [id number] [place] [address] [place] RBC (Bld) [#/Vol] 5.48 10*6/uL Normal 4.20-6.00 [facility] Comment on above: Order Comment: Speci men Type: BLOOD SPECIMENOrdering Facility: [facility] Address: [address] [place] [address] Performed By: #### 5 7021-8 ####[facility] LABIA [id number] [place] [address] [place] WBC (Bld) [#/Vol] 8.29 10*3/uL Normal 3.70-11.00 [facility] Comment on above: Order Comment: Speci men Type: BLOOD SPECIMENOrdering Facility: [facility] Address: [address] [place] [address] Performed By: #### 5 7021-8 ####[facility] LABCLIA [id number] [place] [id number] [place] MRI 3D POST PROCESSINGon MRI 3D POST PROCESSING * * *Final Report* * * DATE OF EXAM: May 28 2024 12:49PM FELICIA Monet0 - MRI 3D POST PROCESSING / PROCEDURE REASON: Cognitive impairment, mild, so stated * * * * Physician Interpretation * * * * EXAMINATION: MRI BRAIN WO IVCON, MRI 3D POST PROCESSING CLINICAL HISTORY: Cognitive impairment, mild, so stated TECHNIQUE: Axial KELSEY FLAIR, KELSEY T2, diffusion and susceptibility weighted imaging without contrast, using the ADNI dementia protocol and 3-D post-processing using the Memobox software at an independent workstation with concurrent physician supervision and images were created, reviewed and archived. MQ: [id number] COMPARISON: None RESULT: QUALITATIVE: Acute Intracranial Process: None. Chronic Intracranial Process: Number of chronic lacunar infarcts: None Location of chronic lacunar infarcts: Not applicable Age related white matter changes (ARWMC) rating: White matter lesions: 1 Basal ganglia lesions: 0 Prior intracranial hemorrhage: Parenchymal microhemorrhages: 0 Other (siderosis/macrohemorrhages (>10mm): Not Applicable Amyloid Related Imaging Abnormalities: ARIA-E: N/A ARIA-H Microhemorrhage: N/A ARIA-H Siderosis: N/A Qualitative brain and hippocampal volume loss for age: Cortex: Mild and symmetric White Matter: Mild and symmetric Hippocampi: Mild and Symmetric Ventricles: Commensurate with volume loss. Brain Parenchymal Signal and Morphology: The brain parenchyma is otherwise within normal limits of signal and morphology. There is no evidence of an intracranial mass or extraaxial fluid collection. Other Significant Findings: None. QUANTITATIVE: Exam Quality: Good for volumetric analysis. Segmentation: Negligible mismapping by visual inspection. Quantitative Data: Total Hippocampal Volume: Percentile for Age: 44 Asymmetry Index: -2.34 Inferior Lateral Vent Volume: Percentile for age: 64 Asymmetry Index: 2.6 Superior Lateral Vent Volume: Percentile for age: 24 Asymmetry Index: -1.69 Temporal Lobe Cortex Volume: Temporal Lobe Percentile for Age: 39 Temporal Lobe Asymmetry Index: 3.99 Frontal Lobe Cortex Volume: Frontal Lobe Percentile for Age: 83 Frontal Lobe Asymmetry Index: -0.49 Parietal Lobe Cortex Volume: Parietal Lobe Percentile for Age:37 Occipital Lobe Cortex Volume: Occipital Lobe Percentile for Age: 93 Whole Brain Volume Brain Percentile for Age: 58 Concordance between qualitative and quantitative hippocampal volume assessment: Concordant Change in brain volumes: No previous volumetric study for comparison See below for comparison of brain volumes in relation to the prior volumetric study: Not applicable. The prior study was reprocessed with the current algorithm version for adequate comparison. Please note that small variations may be due to standard measurement error. Brain Volume: Current percentile: N/A Previous percentile: N/A Hippocampal Volume: Current percentile: N/A Previous percentile: N/A Superior Lateral Ventricle Volume Change: Current percentile: N/A Previous percentile: N/A Inferior Lateral Ventricle Volume Change: Current percentile: N/A Previous percentile: N/A Mean hippocampal volume loss among normal elderly: 0.7% per year, (-0.3 to 1.7; Brandy 2008; also Tulio 2010). IMPRESSION: * No evidence of an acute intracranial process or intracranial mass. * Mild generalized volume loss. * Hippocampal volumes at the 44th percentile when compared to age matched normal controls by quantitative analysis. * Mild white matter disease which is nonspecific but likely reflective of chronic microvascular ischemia. * No evidence of parenchymal microhemorrhages by MRI. REFERENCES: White Matter Lesions: 0 = No lesions, including symmetrical, well-defined caps or bands 1 = Focal Lesions 2 = Beginning of [place] 3 = Diffuse Involvement of Entire Region Basal Ganglia Lesions: 0 = No Lesions 1 = 1 Focal Lesion (>5mm) 2 = >1 Focal Lesion (>5mm) 3 = Confluent Lesions Tulio Kinsey, et al. The clinical use of structural MRI in Alzheimer disease. Nature Reviews Neurology 6;67 (2010). Brandy et al. Validation of a fully automated 3D hippocampal segmentation method using subjects with Alzheimer's disease mild cognitive impairment, and elderly controls. Neuroimage 43;59 (2008). Pricilahlperla et al. A New Rating Scale for Age-Related White Matter Changes Applicable to MRI and CT. Stroke. 32:1318 (2001). * Asymmetry index defined as difference between left and right volumes divided by mean or [(L-R/Mean) x 100] (%). Age-matched reference charts measure total hippocampal volume (% of intracranial volume). See results from the analysis charts for details. Field Project Manager: SAÚL Transcribe Date/Time: May 31 2024 8:48A Dictated by : ELKE ZAVALETA MD This examination was interpreted and the report reviewed and electronically signed by: ELKE ZAVALETA, (more content not included)... Normal [facility] MRI BRAIN WO IVCONon 024 MRI BRAIN WO IVCON * * *Final Report* * * DATE OF EXAM: May 28 2024 12:49PM [facility] 0294 - MRI BRAIN WO IVCON / PROCEDURE REASON: G31.84 * * * * Physician Interpretation * * * * EXAMINATION: MRI BRAIN WO IVCON, MRI 3D POST PROCESSING CLINICAL HISTORY: Cognitive impairment, mild, so stated TECHNIQUE: Axial KELSEY FLAIR, KELSEY T2, diffusion and susceptibility weighted imaging without contrast, using the ADNI dementia protocol and 3-D post-processing using the Memobox software at an independent workstation with concurrent physician supervision and images were created, reviewed and archived. MQ: [email or web address] COMPARISON: None RESULT: QUALITATIVE: Acute Intracranial Process: None. Chronic Intracranial Process: Number of chronic lacunar infarcts: None Location of chronic lacunar infarcts: Not applicable Age related white matter changes (ARWMC) rating: White matter lesions: 1 Basal ganglia lesions: 0 Prior intracranial hemorrhage: Parenchymal microhemorrhages: 0 Other (siderosis/macrohemorrhages (>10mm): Not Applicable Amyloid Related Imaging Abnormalities: ARIA-E: N/A ARIA-H Microhemorrhage: N/A ARIA-H Siderosis: N/A Qualitative brain and hippocampal volume loss for age: Cortex: Mild and symmetric White Matter: Mild and symmetric Hippocampi: Mild and Symmetric Ventricles: Commensurate with volume loss. Brain Parenchymal Signal and Morphology: The brain parenchyma is otherwise within normal limits of signal and morphology. There is no evidence of an intracranial mass or extraaxial fluid collection. Other Significant Findings: None. QUANTITATIVE: Exam Quality: Good for volumetric analysis. Segmentation: Negligible mismapping by visual inspection. Quantitative Data: Total Hippocampal Volume: Percentile for Age: 44 Asymmetry Index: -2.34 Inferior Lateral Vent Volume: Percentile for age: 64 Asymmetry Index: 2.6 Superior Lateral Vent Volume: Percentile for age: 24 Asymmetry Index: -1.69 Temporal Lobe Cortex Volume: Temporal Lobe Percentile for Age: 39 Temporal Lobe Asymmetry Index: 3.99 Frontal Lobe Cortex Volume: Frontal Lobe Percentile for Age: 83 Frontal Lobe Asymmetry Index: -0.49 Parietal Lobe Cortex Volume: Parietal Lobe Percentile for Age:37 Occipital Lobe Cortex Volume: Occipital Lobe Percentile for Age: 93 Whole Brain Volume Brain Percentile for Age: 58 Concordance between qualitative and quantitative hippocampal volume assessment: Concordant Change in brain volumes: No previous volumetric study for comparison See below for comparison of brain volumes in relation to the prior volumetric study: Not applicable. The prior study was reprocessed with the current algorithm version for adequate comparison. Please note that small variations may be due to standard measurement error. Brain Volume: Current percentile: N/A Previous percentile: N/A Hippocampal Volume: Current percentile: N/A Previous percentile: N/A Superior Lateral Ventricle Volume Change: Current percentile: N/A Previous percentile: N/A Inferior Lateral Ventricle Volume Change: Current percentile: N/A Previous percentile: N/A Mean hippocampal volume loss among normal elderly: 0.7% per year, (-0.3 to 1.7; Brandy 2008; also Tulio 2010). IMPRESSION: * No evidence of an acute intracranial process or intracranial mass. * Mild generalized volume loss. * Hippocampal volumes at the 44th percentile when compared to age matched normal controls by quantitative analysis. * Mild white matter disease which is nonspecific but likely reflective of chronic microvascular ischemia. * No evidence of parenchymal microhemorrhages by MRI. REFERENCES: White Matter Lesions: 0 = No lesions, including symmetrical, well-defined caps or bands 1 = Focal Lesions 2 = Beginning of [place] 3 = Diffuse Involvement of Entire Region Basal Ganglia Lesions: 0 = No Lesions 1 = 1 Focal Lesion (>5mm) 2 = >1 Focal Lesion (>5mm) 3 = Confluent Lesions Tulio Kinsey, et al. The clinical use of structural MRI in Alzheimer disease. Nature Reviews Neurology 6;67 (2010). Brandy et al. Validation of a fully automated 3D hippocampal segmentation method using subjects with Alzheimer's disease mild cognitive impairment, and elderly controls. Neuroimage 43;59 (2008). Kyle et al. A New Rating Scale for Age-Related White Matter Changes Applicable to MRI and CT. Stroke. 32:1318 (2001). * Asymmetry index defined as difference between left and right volumes divided by mean or [(L-R/Mean) x 100] (%). Age-matched reference charts measure total hippocampal volume (% of intracranial volume). See results from the analysis charts for details. Field Project Manager: PSCB Transcribe Date/Time: May 31 2024 8:48A Dictated by : ELKE ZAVALETA MD This examination was interpreted and the report reviewed and electronically signed by: ELKE ZAVALETA MD on May 31 2024 10:18AM EST 1570 (more content not included)... Normal [facility] CNPNon 05-24-2024 CNPN Normal [facility] CORTISOL SALIVAon 05-24-2024 CORTISOL, SALIVA 0.378 ug/dL Normal [facility] Comment on above: Order Comment: Speci men Type: SWABOrdering Facility: [facility] Address: [address] [place] [address] Result Comment: Refe rence Intervals: Cortisol, Saliva7 a.m. to 9 a.m.: 0.1-0.75 ug/dL3 p.m. to 5 p.m.: <0.401 ug/dL11 p.m. to midnight: <0.1 ug/dLPerformed By: [id number] [place], [place] [address]Xavjgnlscs Director: Matt Harris MD, PhDCLIA Number: [id number] Performed By: #### S CRISTIANE ####[facility] LABORATORIESCLIA [id number] [place] [address] CBC W Auto Differential pane l (Bld)on 05-21-2024 Basophils (Bld) [#/Vol] 0.14 10*3/uL High <0.11 [facility] Comment on above: Order Comment: Speci men Type: BLOOD SPECIMENOrdering Facility: [facility] Address: [address] [place] [address] Performed By: #### 5 7021-8 ####[facility] LABCLIA [id number] [facility] [id number] [address] [place] Basophils/100 WBC (Bld) 1.5 % Normal [facility] Comment on above: Order Comment: Speci men Type: BLOOD SPECIMENOrdering Facility: [facility] Address: [address] [place] [address] Performed By: #### 5 7021-8 ####[facility] LABCLIA [id number] [place] [address] [place] Differential cell count method Nom (Bld) Auto Normal [facility] Comment on above: Order Comment: Speci men Type: BLOOD SPECIMENOrdering Facility: [facility] Address: [address] [place] [address] Performed By: #### 5 7021-8 ####[facility] LABCLIA [id number] [place] [address] [place] Eosinophils (Bld) [#/Vol] 0.03 10*3/uL Normal <0.46 [facility] Comment on above: Order Comment: Speci men Type: BLOOD SPECIMENOrdering Facility: [facility] Address: [address] [place] [address] Performed By: #### 5 7021-8 ####[facility] LABIA [id number] [place] [address] [place] Eosinophils/100 WBC (Bld) 0.3 % Normal [facility] Comment on above: Order Comment: Speci men Type: BLOOD SPECIMENOrdering Facility: [facility] Address: [address] [place] [address] Performed By: #### 5 7021-8 ####[facility] LABCLIA [id number] [place] [address] [place] Erythrocyte distribution width (RBC) [Ratio] 13.0 % Normal 11.5-15.0 [facility] Comment on above: Order Comment: Speci men Type: BLOOD SPECIMENOrdering Facility: [facility] Address: [address] [place] [address] Performed By: #### 5 7021-8 ####[facility] LABCLIA [id number] [place] [id number] [place] Hematocrit (Bld) [Volume fraction] 51.5 % High 39.0-51.0 [facility] Comment on above: Order Comment: Speci men Type: BLOOD SPECIMENOrdering Facility: [facility] Address: [address] [place] [address] Performed By: #### 5 7021-8 ####[facility] LABCLIA [id number] [place] [address] [place] Hemoglobin (Bld) [Mass/Vol] 17.2 g/dL High 13.0-17.0 [facility] Comment on above: Order Comment: Speci men Type: BLOOD SPECIMENOrdering Facility: [facility] Address: [address] [place] [address] Performed By: #### 5 7021-8 ####[facility] LABCLIA [id number] [place] [address] [place] Immature granulocytes (Bld) [#/Vol] 0.04 10*3/uL Normal <0.10 [facility] Comment on above: Order Comment: Speci men Type: BLOOD SPECIMENOrdering Facility: [facility] Address: [address] [place] [address] Performed By: #### 5 7021-8 ####[facility] LABCLIA [id number] [place] [address] [place] Immature granulocytes/100 WBC (Bld) 0.4 % Normal [facility] Comment on above: Order Comment: Speci men Type: BLOOD SPECIMENOrdering Facility: [facility] Address: [address] [place] [address] Performed By: #### 5 7021-8 ####[facility] LABCLIA [id number] [place] [address] [place] Lymphocytes (Bld) [#/Vol] 1.88 10*3/uL Normal 1.00-4.00 [facility] Comment on above: Order Comment: Speci men Type: BLOOD SPECIMENOrdering Facility: [facility] Address: [address] [place] [address] Performed By: #### 5 7021-8 ####[facility] LABCLIA [id number] [place] [address] [place] Lymphocytes/100 WBC (Bld) 19.9 % Normal [facility] Comment on above: Order Comment: Speci men Type: BLOOD SPECIMENOrdering Facility: [facility] Address: [address] [place] [address] Performed By: #### 5 7021-8 ####[facility] LABCLIA [id number] [place] [address] [place] MCH (RBC) [Entitic mass] 32.3 pg Normal 26.0-34.0 [facility] Comment on above: Order Comment: Speci men Type: BLOOD SPECIMENOrdering Facility: [facility] Address: [address] [place] [address] Performed By: #### 5 7021-8 ####[facility] LABIA [id number] [place] [address] [place] MCHC (RBC) [Mass/Vol] 33.4 g/dL Normal 30.5-36.0 [facility] Comment on above: Order Comment: Speci men Type: BLOOD SPECIMENOrdering Facility: [facility] Address: [address] [place] [address] Performed By: #### 5 7021-8 ####[facility] LABCLIA [id number] [place] [address] [place] MCV (RBC) [Entitic vol] 96.6 fL Normal 80.0-100.0 [facility] Comment on above: Order Comment: Speci men Type: BLOOD SPECIMENOrdering Facility: [facility] Address: [address] [place] [address] Performed By: #### 5 7021-8 ####[facility] LABCLIA [id number] [place] [address] [place] Monocytes (Bld) [#/Vol] 0.73 10*3/uL Normal <0.87 [facility] Comment on above: Order Comment: Speci men Type: BLOOD SPECIMENOrdering Facility: [facility] Address: [address] [place] [address] Performed By: #### 5 7021-8 ####[facility] LABCLIA [id number] [place] [address] [place] Monocytes/100 WBC (Bld) 7.7 % Normal [facility] Comment on above: Order Comment: Speci men Type: BLOOD SPECIMENOrdering Facility: [facility] Address: [address] [place] [address] Performed By: #### 5 7021-8 ####[facility] LABCLIA [id number] [place] [address] [place] Neutrophils (Bld) [#/Vol] 6.63 10*3/uL Normal 1.45-7.50 [facility] Comment on above: Order Comment: Speci men Type: BLOOD SPECIMENOrdering Facility: [facility] Address: [address] [place] [address] Performed By: #### 5 7021-8 ####[facility] LABCLIA [id number] [place] [address] [place] Neutrophils/100 WBC (Bld) 70.2 % Normal [facility] Comment on above: Order Comment: Speci men Type: BLOOD SPECIMENOrdering Facility: [facility] Address: [address] [place] [address] Performed By: #### 5 7021-8 ####[facility] LABCLIA [id number] [place] [address] [place] Nucleated RBC (Bld) [#/Vol] 10*3/uL Normal <0.01 [facility] Comment on above: Order Comment: Speci men Type: BLOOD SPECIMENOrdering Facility: [facility] Address: [address] [place] [address] Performed By: #### 5 7021-8 ####[facility] LABIA [id number] [place] [address] [place] Nucleated RBC/100 WBC (Bld) [Ratio] 0.0 /100 WBC Normal [facility] Comment on above: Order Comment: Speci men Type: BLOOD SPECIMENOrdering Facility: [facility] Address: [address] [place] [address] Performed By: #### 5 7021-8 ####[facility] LABIA [id number] [place] [address] [place] Platelet mean volume (Bld) [Entitic vol] 9.9 fL Normal 9.0-12.7 [facility] Comment on above: Order Comment: Speci men Type: BLOOD SPECIMENOrdering Facility: [facility] Address: [address] [place] [address] Performed By: #### 5 7021-8 ####[facility] [id number] [place] [address] [place] Platelets (Bld) [#/Vol] 239 10*3/uL Normal 150-400 [facility] Comment on above: Order Comment: Speci men Type: BLOOD SPECIMENOrdering Facility: [facility] Address: [address] [place] [address] Performed By: #### 5 7021-8 ####[facility] LABIA [id number] [place] [address] [place] RBC (Bld) [#/Vol] 5.33 10*6/uL Normal 4.20-6.00 [facility] Comment on above: Order Comment: Speci men Type: BLOOD SPECIMENOrdering Facility: [facility] Address: [address] [place] [address] Performed By: #### 5 7021-8 ####[facility] LABCLIA [id number] [address] [address] [place] WBC (Bld) [#/Vol] 9.45 10*3/uL Normal 3.70-11.00 [facility] Comment on above: Order Comment: Speci men Type: BLOOD SPECIMENOrdering Facility: [facility] Address: [address] [place] [address] Performed By: #### 5 7021-8 ####[facility] LABCLIA [id number] [place] [address] [place] CNOVon 05-21-2024 CNOV Normal [facility] Comprehensive metabolic 2000 panelon 05-21-2024 Albumin [Mass/Vol] 4.4 g/dL Normal 3.9-4.9 [facility] Comment on above: Order Comment: Speci men Type: BLOOD SPECIMENOrdering Facility: [facility] Address: [address] [place] [address] Performed By: #### 3 016-3, 44211-3 ####[facility] LABCLIA [id number] [place] [address] [place] ALP [Catalytic activity/Vol] 102 U/L Normal 38-113 [facility] Comment on above: Order Comment: Speci men Type: BLOOD SPECIMENOrdering Facility: [facility] Address: [address] [place] [address] Performed By: #### 3 016-3, 78035-1 ####[facility] LABCLIA [id number] [place] [id number] [place] ALT [Catalytic activity/Vol] 18 U/L Normal 10-54 [facility] Comment on above: Order Comment: Speci men Type: BLOOD SPECIMENOrdering Facility: [facility] Address: [address] [place] [address] Performed By: #### 3 016-3, 53198-4 ####[facility] LABCLIA [id number] [place] [address] [place] Anion gap [Moles/Vol] 12 mmol/L Normal 8-15 [facility] Comment on above: Order Comment: Speci men Type: BLOOD SPECIMENOrdering Facility: [facility] Address: [address] [place] [address] Performed By: #### 3 016-3, 63401-2 ####[facility] LABCLIA [id number] [place] [address] [place] AST [Catalytic activity/Vol] 17 U/L Normal 14-40 [facility] Comment on above: Order Comment: Speci men Type: BLOOD SPECIMENOrdering Facility: [facility] Address: [address] [place] [address] Performed By: #### 3 016-3, 27525-4 ####[facility] LABCLIA [id number] [place] [address] [place] Bilirubin [Mass/Vol] 0.5 mg/dL Normal 0.2-1.3 [facility] Comment on above: Order Comment: Speci men Type: BLOOD SPECIMENOrdering Facility: [facility] Address: [address] [place] [address] Performed By: #### 3 016-3, 35181-0 ####[facility] LABCLIA [id number] [place] [address] [place] Calcium [Mass/Vol] 10.2 mg/dL Normal 8.5-10.2 [facility] Comment on above: Order Comment: Speci men Type: BLOOD SPECIMENOrdering Facility: [facility] Address: [address] [place] [address] Performed By: #### 3 016-3, 05371-7 ####[facility] LABCLIA [id number] [place] [address] [place] Chloride [Moles/Vol] 98 mmol/L Normal 98-107 [facility] Comment on above: Order Comment: Speci men Type: BLOOD SPECIMENOrdering Facility: [facility] Address: [address] [place] [address] Performed By: #### 3 016-3, 09463-1 ####[facility] LABIA [id number] [place] [address] [place] CO2 [Moles/Vol] 24 mmol/L Normal 22-30 [facility] Comment on above: Order Comment: Speci men Type: BLOOD SPECIMENOrdering Facility: [facility] Address: [address] [place] [address] Performed By: #### 3 -3, 24285-0 ####[facility] LABIA [id number] [place] [address] [place] Creatinine [Mass/Vol] 0.99 mg/dL Normal 0.73-1.22 [facility] Comment on above: Order Comment: Speci men Type: BLOOD SPECIMENOrdering Facility: [facility] Address: [address] [place] [address] Performed By: #### 3 016-3, 30242-2 ####[facility] LABIA [id number] [address] [place] Creatinine and Glomerular filtration rate.predicted panel (S/P/Bld) 75 mL/min/1.73m??? Normal >=60 [facility] Comment on above: Order Comment: Speci men Type: BLOOD SPECIMENOrdering Facility: [facility] Address: [address] [place] [address] Result Comment: Sun mated Glomerular Filtration Rate (eGFR) is calculated using the 2020 CKD-EPI creatinine equation. This equation utilizes serum creatinine, sex, and age as parameters. The creatinine assay has traceable calibration to isotope dilution-mass spectrometry. Refer to KDIGO guidelines for clinical interpretation. In patients with unstable renal function, e.g. those with acute kidney injury, the eGFR may not accurately reflect actual GFR. Performed By: #### 3 016- ####[facility] LABCLIA [id number] [place] [address] [place] Glucose [Mass/Vol] 121 mg/dL High 74-99 [facility] Comment on above: Order Comment: Speci men Type: BLOOD SPECIMENOrdering Facility: [facility] Address: [address] [place] [address] Result Comment: The [place] Diabetes Association (ADA) provides guidance for cutoff values for fasting glucose and random glucose. The ADA defines fasting as no caloric intake for at least 8 hours. Fasting plasma glucose results between 100 to 125 mg/dL indicate increased risk for diabetes (prediabetes).Fasting plasma glucose results greater than or equal to 126 mg/dL meet the criteria for diagnosis of diabetes. In the absence of unequivocal hyperglycemia, results should be confirmed by repeat testing. In a patient with classic symptoms of hyperglycemia or hyperglycemic crisis, random plasma glucose results greater than or equal to 200 mg/dL meet the criteria for diagnosis of diabetes.Reference: Standards of Medical Care in Diabetes 2016, [place] [employer] Association. Diabetes Care. 2016.39(Suppl 1). Performed By: #### 3 3, ####[facility] LABIA [id number] [place] [address] [place] Potassium [Moles/Vol] 5.5 mmol/L High 3.7-5.1 [facility] Comment on above: Order Comment: Speci men Type: BLOOD SPECIMENOrdering Facility: [facility] Address: [address] [place] [address] Performed By: #### 3 3, ####[facility] LABIA [id number] [place] [address] [place] Protein [Mass/Vol] 7.4 g/dL Normal 6.3-8.0 [facility] Comment on above: Order Comment: Speci men Type: BLOOD SPECIMENOrdering Facility: [facility] Address: [address] [place] [address] Performed By: #### 3 3, ####[facility] LABCLIA [id number] [place] [id number] [place] Sodium [Moles/Vol] 134 mmol/L Low 136-144 [facility] Comment on above: Order Comment: Speci men Type: BLOOD SPECIMENOrdering Facility: [facility] Address: [address] [place] [address] Performed By: #### 3 016-3, 56404-4 ####[facility] LABIA [id number] [place] [address] [place] Urea nitrogen [Mass/Vol] 24 mg/dL Normal 9-24 [facility] Comment on above: Order Comment: Speci men Type: BLOOD SPECIMENOrdering Facility: [facility] Address: [address] [place] [address] Performed By: #### 3 016-3, 73464-7 ####[facility] [id number] [place] [address] [place] HbA1c (Bld)on 05-21-2024 Average glucose Estimated from glycated hemoglobin (Bld) [Mass/Vol] 128 mg/dL Normal [facility] Comment on above: Order Comment: Speci men Type: BLOOD SPECIMENOrdering Facility: [facility] Address: [address] [place] [address] Result Comment: eAG: (Estimated average glucose) is a calculated value from HgbA1c and is franchise sales representative of the average blood glucose level in the last 2-3 month period. Performed By: #### 5 5454-3 ####[facility] [id number] [place] [address] [place] HbA1c (Bld) [Mass fraction] 6.1 % High 4.3-5.6 [facility] Comment on above: Order Comment: Speci men Type: BLOOD SPECIMENOrdering Facility: [facility] Address: [address] [place] [address] Result Comment: [place] Diabetes Association guidelines indicate that patients with HgbA1c in the range 5.7-6.4% are at increased risk for development of diabetes, and intervention by lifestyle modification may be beneficial. HgbA1c greater or equal to 6.5% is considered diagnostic of diabetes. Performed By: #### 5 5454-3 ####[facility] LABCLIA [id number] [place] [address] [place] TSH SerPl-aCncon 05-21-2024 TSH Qn 1.450 m[IU]/L Normal 0.270-4.200 [facility] Comment on above: Order Comment: Speci men Type: BLOOD SPECIMENOrdering Facility: [facility] Address: [address] [place] [address] Performed By: #### 3 016-3, 37796-9 ####[facility] LABCLIA [id number] [place] [address] [place] CNOVon 04-07-2024 CNOV Normal [facility] CNPTOUTREACHon 03-30-2024 CNPTOUTREACH Normal [facility] CNPTOUTREACHon 03-25-2024 CNPTOUTREACH Normal [facility] CNOVon 03-19-2024 CNOV Normal [facility] CNPTOUTREACHon 03-17-2024 CNPTOUTREACH Normal [facility] CNOVon 03-15-2024 CNOV Normal [facility] CNPNon 03-15-2024 CNPN Normal [facility] CNPTOUTREACHon 03-10-2024 CNPTOUTREACH Normal [facility] Basic metabolic 2000 panelon 03-09-2024 Anion gap [Moles/Vol] 8 mmol/L Normal 8-15 [facility] Comment on above: Order Comment: Speci men Type: BLOOD SPECIMENOrdering Facility: [facility] Address: [address] [place] [address] Performed By: #### 2 4321-2 ####[facility] LABCLIA [id number] [address] [id number] [address] [place] Calcium [Mass/Vol] 9.1 mg/dL Normal 8.5-10.2 [facility] Comment on above: Order Comment: Speci men Type: BLOOD SPECIMENOrdering Facility: [facility] Address: [address] [place] [address] Performed By: #### 2 4321-2 ####[facility] LABCLIA [id number] [place] [address] [place] Chloride [Moles/Vol] 104 mmol/L Normal 98-107 [facility] Comment on above: Order Comment: Speci men Type: BLOOD SPECIMENOrdering Facility: [facility] Address: [address] [place] [address] Performed By: #### 2 4321-2 ####[facility] LABCLIA [id number] [place] [address] [place] CO2 [Moles/Vol] 25 mmol/L Normal 22-30 [facility] Comment on above: Order Comment: Speci men Type: BLOOD SPECIMENOrdering Facility: [facility] Address: [address] [place] [address] Performed By: #### 2 4321-2 ####[facility] LABCLIA [id number] [place] [address] [place] Creatinine [Mass/Vol] 1.04 mg/dL Normal 0.73-1.22 [facility] Comment on above: Order Comment: Speci men Type: BLOOD SPECIMENOrdering Facility: [facility] Address: [address] [place] [address] Performed By: #### 2 4321-2 ####[facility] LABCLIA [id number] [place] [address] [place] Creatinine and Glomerular filtration rate.predicted panel (S/P/Bld) 71 mL/min/1.73m??? Normal >=60 [facility] Comment on above: Order Comment: Speci men Type: BLOOD SPECIMENOrdering Facility: [facility] Address: [address] [place] [address] Result Comment: Sun mated Glomerular Filtration Rate (eGFR) is calculated using the 2020 CKD-EPI creatinine equation. This equation utilizes serum creatinine, sex, and age as parameters. The creatinine assay has traceable calibration to isotope dilution-mass spectrometry. Refer to KDIGO guidelines for clinical interpretation. In patients with unstable renal function, e.g. those with acute kidney injury, the eGFR may not accurately reflect actual GFR. Performed By: #### 2 4321-2 ####[facility] LABCLIA [id number] [place] [address] [place] Glucose [Mass/Vol] 108 mg/dL High 74-99 [facility] Comment on above: Order Comment: Stan men Type: BLOOD SPECIMENOrdering Facility: [facility] Address: [address] [place] [address] Result Comment: The [place] Diabetes Association (ADA) provides guidance for cutoff values for fasting glucose and random glucose. The ADA defines fasting as no caloric intake for at least 8 hours. Fasting plasma glucose results between 100 to 125 mg/dL indicate increased risk for diabetes (prediabetes).Fasting plasma glucose results greater than or equal to 126 mg/dL meet the criteria for diagnosis of diabetes. In the absence of unequivocal hyperglycemia, results should be confirmed by repeat testing. In a patient with classic symptoms of hyperglycemia or hyperglycemic crisis, random plasma glucose results greater than or equal to 200 mg/dL meet the criteria for diagnosis of diabetes.Reference: Standards of Medical Care in Diabetes 2016, [place] Diabetes Association. Diabetes Care. 2016.39(Suppl 1). Performed By: #### 2 4321-2 ####[facility] LABCLIA [id number] [place] [address] [place] Potassium [Moles/Vol] 4.9 mmol/L Normal 3.7-5.1 [facility] Comment on above: Order Comment: Stan men Type: BLOOD SPECIMENOrdering Facility: [facility] Address: [address] [place] [address] Performed By: #### 2 4321-2 ####[facility] LABCLIA [id number] [place] [address] [place] Sodium [Moles/Vol] 137 mmol/L Normal 136-144 [facility] Comment on above: Order Comment: Speci men Type: BLOOD SPECIMENOrdering Facility: [facility] Address: [address] [place] [address] Performed By: #### 2 4321-2 ####[facility] LABCLIA [id number] [place] [address] [place] Urea nitrogen [Mass/Vol] 21 mg/dL Normal 9-24 [facility] Comment on above: Order Comment: Speci men Type: BLOOD SPECIMENOrdering Facility: [facility] Address: [address] [place] [address] Performed By: #### 2 4321-2 ####[facility] LABIA [id number] [place] [address] [place] CBC panel Auto (Bld)on 03-09 Erythrocyte distribution width (RBC) [Ratio] 14.3 % Normal 11.5-15.0 [facility] Comment on above: Order Comment: Speci men Type: BLOOD SPECIMENOrdering Facility: [facility] Address: [address] [place] [address] Performed By: #### 5 8410-2 ####[facility] LABCLIA [id number] [place] [address] [place] Hematocrit (Bld) [Volume fraction] 32.9 % Low 39.0-51.0 [facility] Comment on above: Order Comment: Speci men Type: BLOOD SPECIMENOrdering Facility: [facility] Address: [address] [place] [address] Performed By: #### 5 8410-2 ####[facility] LABCLIA [id number] [place] [address] [place] Hemoglobin (Bld) [Mass/Vol] 11.1 g/dL Low 13.0-17.0 [facility] Comment on above: Order Comment: Speci men Type: BLOOD SPECIMENOrdering Facility: [facility] Address: [address] [place] [address] Performed By: #### 5 8410-2 ####[facility] [id number] [place] [address] [place] MCH (RBC) [Entitic mass] 32.8 pg Normal 26.0-34.0 [facility] Comment on above: Order Comment: Speci men Type: BLOOD SPECIMENOrdering Facility: [facility] Address: [address] [place] [address] Performed By: #### 5 8410-2 ####[facility] [id number] [place] [address] [place] MCHC (RBC) [Mass/Vol] 33.7 g/dL Normal 30.5-36.0 [facility] Comment on above: Order Comment: Speci men Type: BLOOD SPECIMENOrdering Facility: [facility] Address: [address] [place] [address] Performed By: #### 5 8410-2 ####[facility] [id number] [place] [address] [place] MCV (RBC) [Entitic vol] 97.3 fL Normal 80.0-100.0 [facility] Comment on above: Order Comment: Speci men Type: BLOOD SPECIMENOrdering Facility: [facility] Address: [address] [place] [address] Performed By: #### 5 8410-2 ####[facility] [id number] [place] [address] [place] Nucleated RBC (Bld) [#/Vol] 10*3/uL Normal <0.01 [facility] Comment on above: Order Comment: Speci men Type: BLOOD SPECIMENOrdering Facility: [facility] Address: [address] [place] [address] Performed By: #### 5 8410-2 ####[facility] LABCLIA [id number] [facility] [place] [address] [place] Platelet mean volume (Bld) [Entitic vol] 10.4 fL Normal 9.0-12.7 [facility] Comment on above: Order Comment: Speci men Type: BLOOD SPECIMENOrdering Facility: [facility] Address: [address] [place] [address] Performed By: #### 5 8410-2 ####[facility] LABCLIA [id number] [place] [address] [place] Platelets (Bld) [#/Vol] 172 10*3/uL Normal 150-400 [facility] Comment on above: Order Comment: Speci men Type: BLOOD SPECIMENOrdering Facility: [facility] Address: [address] [place] [address] Performed By: #### 5 8410-2 ####[facility] LABCLIA [id number] [place] [address] [place] RBC (Bld) [#/Vol] 3.38 10*6/uL Low 4.20-6.00 [facility] Comment on above: Order Comment: Speci men Type: BLOOD SPECIMENOrdering Facility: [facility] Address: [address] [place] [address] Performed By: #### 5 8410-2 ####[facility] LABCLIA [id number] [place] [address] [place] WBC (Bld) [#/Vol] 7.09 10*3/uL Normal 3.70-11.00 [facility] Comment on above: Order Comment: Speci men Type: BLOOD SPECIMENOrdering Facility: [facility] Address: [address] [place] [address] Performed By: #### 5 8410-2 ####[facility] LABCLIA [id number] [address] [address] [place] CNCOon 03-09-2024 CNCO Letter Text Normal [facility] CNDSon 03-09-2024 CNDS Normal [facility] NUTRITIONon 03-09-2024 NUTRITION Normal [facility] THERAPY NTon 03-09-2024 THERAPY NT Normal [facility] ALLIED HEALTHon 03-08-2024 ALLIED HEALTH Normal [facility] Basic metabolic 2000 panelon 03-08-2024 Anion gap [Moles/Vol] 10 mmol/L Normal 8-15 [facility] Comment on above: Order Comment: Speci men Type: BLOOD SPECIMENOrdering Facility: [facility] Address: [address] [place] [address] Performed By: #### 2 4321-2 ####[facility] LABCLIA [id number] [place] [address] [place] Calcium [Mass/Vol] 8.7 mg/dL Normal 8.5-10.2 [facility] Comment on above: Order Comment: Speci men Type: BLOOD SPECIMENOrdering Facility: [facility] Address: [address] [place], [place] [address] Performed By: #### 2 4321-2 ####[facility] LABCLIA [id number] [place] [address] [place] Chloride [Moles/Vol] 100 mmol/L Normal 98-107 [facility] Comment on above: Order Comment: Speci men Type: BLOOD SPECIMENOrdering Facility: [facility] Address: [address] [place] [address] Performed By: #### 2 4321-2 ####[facility] LABCLIA [id number] [place] [address] [place] CO2 [Moles/Vol] 23 mmol/L Normal 22-30 [facility] Comment on above: Order Comment: Speci men Type: BLOOD SPECIMENOrdering Facility: [facility] Address: [address] [place] [address] Performed By: #### 2 4321-2 ####[facility] LABIA [id number] [place] [id number] [place] Creatinine [Mass/Vol] 0.94 mg/dL Normal 0.73-1.22 [facility] Comment on above: Order Comment: Speci men Type: BLOOD SPECIMENOrdering Facility: [facility] Address: [address] [place] [address] Performed By: #### 2 4321-2 ####[facility] LABCLIA [id number] [place] [address] [place] Creatinine and Glomerular filtration rate.predicted panel (S/P/Bld) 80 mL/min/1.73m??? Normal >=60 [facility] Comment on above: Order Comment: Austini men Type: BLOOD SPECIMENOrdering Facility: [facility] Address: [address] [place] [address] Result Comment: Sun mated Glomerular Filtration Rate (eGFR) is calculated using the 2020 CKD-EPI creatinine equation. This equation utilizes serum creatinine, sex, and age as parameters. The creatinine assay has traceable calibration to isotope dilution-mass spectrometry. Refer to KDIGO guidelines for clinical interpretation. In patients with unstable renal function, e.g. those with acute kidney injury, the eGFR may not accurately reflect actual GFR. Performed By: #### 2 4321-2 ####[facility] LABIA [id number] [place] [id number] [place] Glucose [Mass/Vol] 154 mg/dL High 74-99 [facility] Comment on above: Order Comment: Speci men Type: BLOOD SPECIMENOrdering Facility: [facility] Address: [address] [place] [address] Result Comment: The [place] Diabetes Association (ADA) provides guidance for cutoff values for fasting glucose and random glucose. The ADA defines fasting as no caloric intake for at least 8 hours. Fasting plasma glucose results between 100 to 125 mg/dL indicate increased risk for diabetes (prediabetes).Fasting plasma glucose results greater than or equal to 126 mg/dL meet the criteria for diagnosis of diabetes. In the absence of unequivocal hyperglycemia, results should be confirmed by repeat testing. In a patient with classic symptoms of hyperglycemia or hyperglycemic crisis, random plasma glucose results greater than or equal to 200 mg/dL meet the criteria for diagnosis of diabetes.Reference: Standards of Medical Care in Diabetes 2016, [place] [employer] Association. Diabetes Care. 2016.39(Suppl 1). Performed By: #### 2 4321-2 ####[facility] LABCLIA [id number] [place] [address] [place] Potassium [Moles/Vol] 3.9 mmol/L Normal 3.7-5.1 [facility] Comment on above: Order Comment: Stan jiménez Type: BLOOD SPECIMENOrdering Facility: [facility] Address: [address] [place] [address] Performed By: #### 2 4321-2 ####[facility] [id number] [place] [address] [place] Sodium [Moles/Vol] 133 mmol/L Low 136-144 [facility] Comment on above: Order Comment: Stan jiménez Type: BLOOD SPECIMENOrdering Facility: [facility] Address: [address] [place] [address] Performed By: #### 2 4321-2 ####[facility] [id number] [place] [address] [place] Urea nitrogen [Mass/Vol] 15 mg/dL Normal 9-24 [facility] [facility] Comment on above: Order Comment: Austini tino Type: BLOOD SPECIMENOrdering Facility: [facility] Address: [address] [place] [address] Performed By: #### 2 4321-2 ####[facility] LABIA [id number] [place] [id number] [place] CASE MGT INIT ASSESon 2023 CASE MGT INIT ASSES Normal [facility] CBC panel Auto (Bld)on 03-08 Erythrocyte distribution width (RBC) [Ratio] 14.6 % Normal 11.5-15.0 [facility] Comment on above: Order Comment: Speci men Type: BLOOD SPECIMENOrdering Facility: [facility] Address: [address] [place] [address] Performed By: #### 5 8410-2 ####[facility] LABCLIA [id number] [place] [address] [place] Hematocrit (Bld) [Volume fraction] 33.1 % Low 39.0-51.0 [facility] Comment on above: Order Comment: Speci men Type: BLOOD SPECIMENOrdering Facility: [facility] Address: [address] [place] [address] Performed By: #### 5 8410-2 ####[facility] LABCLIA [id number] [place] [address] [place] Hemoglobin (Bld) [Mass/Vol] 11.0 g/dL Low 13.0-17.0 [facility] Comment on above: Order Comment: Speci men Type: BLOOD SPECIMENOrdering Facility: [facility] Address: [address] [place] [address] Performed By: #### 5 8410-2 ####[facility] LABIA [id number] [place] [address] [place] MCH (RBC) [Entitic mass] 32.0 pg Normal 26.0-34.0 [facility] Comment on above: Order Comment: Speci men Type: BLOOD SPECIMENOrdering Facility: [facility] Address: [address] [place] [address] Performed By: #### 5 8410-2 ####[facility] LABCLIA [id number] [place] [address] [place] MCHC (RBC) [Mass/Vol] 33.2 g/dL Normal 30.5-36.0 [facility] Comment on above: Order Comment: Speci men Type: BLOOD SPECIMENOrdering Facility: [facility] Address: [address] [place] [address] Performed By: #### 5 8410-2 ####[facility] LABCLIA [id number] [place] [address] [place] MCV (RBC) [Entitic vol] 96.2 fL Normal 80.0-100.0 [facility] Comment on above: Order Comment: Speci men Type: BLOOD SPECIMENOrdering Facility: [facility] Address: [address] [place] [address] Performed By: #### 5 8410-2 ####[facility] LABCLIA [id number] [place] [address] [place] Nucleated RBC (Bld) [#/Vol] 10*3/uL Normal <0.01 [facility] Comment on above: Order Comment: Speci men Type: BLOOD SPECIMENOrdering Facility: [facility] Address: [address] [place] [address] Performed By: #### 5 8410-2 ####[facility] LABCLIA [id number] [place] [address] [place] Platelet mean volume (Bld) [Entitic vol] 10.3 fL Normal 9.0-12.7 [facility] Comment on above: Order Comment: Speci men Type: BLOOD SPECIMENOrdering Facility: [facility] Address: [address] [place] [address] Performed By: #### 5 8410-2 ####[facility] LABCLIA [id number] [place] [address] [place] Platelets (Bld) [#/Vol] 159 10*3/uL Normal 150-400 [facility] Comment on above: Order Comment: Speci men Type: BLOOD SPECIMENOrdering Facility: [facility] Address: [address] [place] [address] Performed By: #### 5 8410-2 ####[facility] LABCLIA [id number] [address] [address] [place] RBC (Bld) [#/Vol] 3.44 10*6/uL Low 4.20-6.00 [facility] Comment on above: Order Comment: Speci men Type: BLOOD SPECIMENOrdering Facility: [facility] Address: [address] [place] [address] Performed By: #### 5 8410-2 ####[facility] LABIA [id number] [place] [id number] [place] WBC (Bld) [#/Vol] 9.27 10*3/uL Normal 3.70-11.00 [facility] Comment on above: Order Comment: Speci men Type: BLOOD SPECIMENOrdering Facility: [facility] Address: [address] [place] [address] Performed By: #### 5 8410-2 ####[facility] [id number] [place] [id number] [place] NUTRITIONon 03-08-2024 NUTRITION Normal [facility] ALLIED HEALTHon 03-07-2024 ALLIED HEALTH Normal [facility] Basic metabolic 2000 panelon 03-07-2024 Anion gap [Moles/Vol] 9 mmol/L Normal 8-15 [facility] Comment on above: Order Comment: Speci men Type: BLOOD SPECIMENOrdering Facility: [facility] Address: [address] [place] [address] Performed By: #### 2 4321-2, HSTNT, 54445-4, 2777-1 ####[facility] LABIA [id number] [place] [address] [place] Calcium [Mass/Vol] 8.9 mg/dL Normal 8.5-10.2 [facility] Comment on above: Order Comment: Speci men Type: BLOOD SPECIMENOrdering Facility: [facility] Address: [address] [place] [address] Performed By: #### 2 4321-2, HSTNT, , 2776-06 ####[facility] LABCLIA [id number] [address] [address] [place] Chloride [Moles/Vol] 104 mmol/L Normal 98-107 [facility] Comment on above: Order Comment: Speci men Type: BLOOD SPECIMENOrdering Facility: [facility] Address: [address] [place] [address] Performed By: #### 2 4321-2, HSTNT, , 2776-06 ####[facility] LABCLIA [id number] [place] [address] [place] CO2 [Moles/Vol] 25 mmol/L Normal 22-30 [facility] Comment on above: Order Comment: Speci men Type: BLOOD SPECIMENOrdering Facility: [facility] Address: [address] [place] [address] Performed By: #### 2 4321-2, HSTNT, , 2776-06 ####[facility] LABCLIA [id number] [place] [address] [place] Creatinine [Mass/Vol] 1.06 mg/dL Normal 0.73-1.22 [facility] Comment on above: Order Comment: Speci men Type: BLOOD SPECIMENOrdering Facility: [facility] Address: [address] [place] [address] Performed By: #### 2 4321-2, HSTNT, , 2776-06 ####[facility] LABCLIA [id number] [place] [address] [place] Creatinine and Glomerular filtration rate.predicted panel (S/P/Bld) 69 mL/min/1.73m??? Normal >=60 [facility] Comment on above: Order Comment: Speci men Type: BLOOD SPECIMENOrdering Facility: [facility] Address: [address] [place] [address] Result Comment: Sun mated Glomerular Filtration Rate (eGFR) is calculated using the 2020 CKD-EPI creatinine equation. This equation utilizes serum creatinine, sex, and age as parameters. The creatinine assay has traceable calibration to isotope dilution-mass spectrometry. Refer to KDIGO guidelines for clinical interpretation. In patients with unstable renal function, e.g. those with acute kidney injury, the eGFR may not accurately reflect actual GFR. Performed By: #### 2 4321-2, HSTNT, , 2776-06 ####[facility] LABCLIA [id number] [place] [address] [place] Glucose [Mass/Vol] 157 mg/dL High 74-99 [facility] Comment on above: Order Comment: Stan jiménez Type: BLOOD SPECIMENOrdering Facility: [facility] Address: [address] [place] [address] Result Comment: The [place] [employer] (ADA) provides guidance for cutoff values for fasting glucose and random glucose. The ADA defines fasting as no caloric intake for at least 8 hours. Fasting plasma glucose results between 100 to 125 mg/dL indicate increased risk for diabetes (prediabetes).Fasting plasma glucose results greater than or equal to 126 mg/dL meet the criteria for diagnosis of diabetes. In the absence of unequivocal hyperglycemia, results should be confirmed by repeat testing. In a patient with classic symptoms of hyperglycemia or hyperglycemic crisis, random plasma glucose results greater than or equal to 200 mg/dL meet the criteria for diagnosis of diabetes.Reference: Standards of Medical Care in Diabetes 2016, [place] [employer]. Diabetes Care. 2016.39(Suppl 1). Performed By: #### 2 4321-2, HSTNT, , 2776-06 ####[facility] LABCLIA [id number] [place] [id number] [place] Potassium [Moles/Vol] 5.1 mmol/L Normal 3.7-5.1 [facility] Comment on above: Order Comment: Speci men Type: BLOOD SPECIMENOrdering Facility: [facility] Address: [address] [place] [address] Performed By: #### 2 4321-2, HSTNT, 70870-0, 2776- ####[facility] LABCLIA [id number] [address] [address] [place] Sodium [Moles/Vol] 138 mmol/L Normal 136-144 [facility] Comment on above: Order Comment: Speci men Type: BLOOD SPECIMENOrdering Facility: [facility] Address: [address] [place] [address] Performed By: #### 2 4321-2, HSTNT, , 2776- ####[facility] LABCLIA [id number] [place] [address] [place] Urea nitrogen [Mass/Vol] 18 mg/dL Normal 9-24 [facility] Comment on above: Order Comment: Speci men Type: BLOOD SPECIMENOrdering Facility: [facility] Address: [address] [place] [address] Performed By: #### 2 4321-2, HSTNT, , 2776-06 ####[facility] LABIA [id number] [place] [address] [place] CBC panel Auto (Bld)on 03-07 Erythrocyte distribution width (RBC) [Ratio] 14.7 % Normal 11.5-15.0 [facility] Comment on above: Order Comment: Speci men Type: BLOOD SPECIMENOrdering Facility: [facility] Address: [address] [place] [address] Performed By: #### 5 8410-2 ####[facility] LABIA [id number] [place] [id number] [place] Hematocrit (Bld) [Volume fraction] 37.3 % Low 39.0-51.0 [facility] Comment on above: Order Comment: Speci men Type: BLOOD SPECIMENOrdering Facility: [facility] Address: [address] [place] [address] Performed By: #### 5 8410-2 ####[facility] LABIA [id number] [place] [address] [place] Hemoglobin (Bld) [Mass/Vol] 12.8 g/dL Low 13.0-17.0 [facility] Comment on above: Order Comment: Speci men Type: BLOOD SPECIMENOrdering Facility: [facility] Address: [address] [place] [address] Performed By: #### 5 8410-2 ####[facility] LABIA [id number] [place] [address] [place] MCH (RBC) [Entitic mass] 33.2 pg Normal 26.0-34.0 [facility] Comment on above: Order Comment: Speci men Type: BLOOD SPECIMENOrdering Facility: [facility] Address: [address] [place] [address] Performed By: #### 5 8410-2 ####[facility] [id number] [place] [address] [place] MCHC (RBC) [Mass/Vol] 34.3 g/dL Normal 30.5-36.0 [facility] Comment on above: Order Comment: Speci men Type: BLOOD SPECIMENOrdering Facility: [facility] Address: [address] [place] [address] Performed By: #### 5 8410-2 ####[facility] [id number] [place] [address] [place] MCV (RBC) [Entitic vol] 96.6 fL Normal 80.0-100.0 [facility] Comment on above: Order Comment: Speci men Type: BLOOD SPECIMENOrdering Facility: [facility] Address: [address] [place] [address] Performed By: #### 5 8410-2 ####[facility] [id number] [place] [address] [place] Nucleated RBC (Bld) [#/Vol] 10*3/uL Normal <0.01 [facility] Comment on above: Order Comment: Speci men Type: BLOOD SPECIMENOrdering Facility: [facility] Address: [address] [place] [address] Performed By: #### 5 8410-2 ####[facility] LABCLIA [id number] [place] [address] [place] Platelet mean volume (Bld) [Entitic vol] 10.0 fL Normal 9.0-12.7 [facility] Comment on above: Order Comment: Speci men Type: BLOOD SPECIMENOrdering Facility: [facility] Address: [address] [place] [address] Performed By: #### 5 8410-2 ####[facility] LABIA [id number] [place] [address] [place] Platelets (Bld) [#/Vol] 148 10*3/uL Low 150-400 [facility] Comment on above: Order Comment: Speci men Type: BLOOD SPECIMENOrdering Facility: [facility] Address: [address] [place] [address] Performed By: #### 5 8410-2 ####[facility] LABIA [id number] [place] [address] [place] RBC (Bld) [#/Vol] 3.86 10*6/uL Low 4.20-6.00 [facility] Comment on above: Order Comment: Speci men Type: BLOOD SPECIMENOrdering Facility: [facility] Address: [address] [place] [address] Performed By: #### 5 8410-2 ####[facility] LABCLIA [id number] [place] [address] [place] WBC (Bld) [#/Vol] 11.32 10*3/uL High 3.70-11.00 [facility] Comment on above: Order Comment: Speci men Type: BLOOD SPECIMENOrdering Facility: [facility] Address: [address] [place] [address] Performed By: #### 5 8410-2 ####[facility] LABCLIA [id number] [place] [address] [place] HIGH SENSITIVITY TROPONIN To n 03-07-2024 Troponin T.cardiac High sensitivity method [Mass/Vol] 11 ng/L Normal <12 [facility] Comment on above: Order Comment: Speci men Type: BLOOD SPECIMENOrdering Facility: [facility] Address: [address] [place] [address] Performed By: #### H STNT ####[facility] LABIA [id number] [place] [address] [place] Troponin T.cardiac High sensitivity method [Mass/Vol] 12 ng/L High <12 [facility] Comment on above: Order Comment: Speci men Type: BLOOD SPECIMENOrdering Facility: [facility] Address: [address] [place] [address] Performed By: #### 2 4321-2, HSTNT, 16478-8, 2776-1 ####[facility] LABIA [id number] [place] [address] [place] Magnesium SerPl-mCncon 03-07 Magnesium [Mass/Vol] 2.0 mg/dL Normal 1.7-2.3 [facility] Comment on above: Order Comment: Speci men Type: BLOOD SPECIMENOrdering Facility: [facility] Address: [address] [place] [address] Performed By: #### 2 4321-2, HSTNT, 88785-3, 2776-1 ####[facility] LABIA [id number] [place] [address] [place] Phosphate SerPl-mCncon 03-07 Phosphate [Mass/Vol] 2.4 mg/dL Low 2.7-4.8 [facility] Comment on above: Order Comment: Speci men Type: BLOOD SPECIMENOrdering Facility: [facility] Address: [address] [place], [place] [address] Performed By: #### 2 4321-2, HSTNT, 47986-5, 2777-1 ####[facility] LABCLIA [id number] [address] [address] [place] THERAPY NTon 03-07-2024 THERAPY NT Normal [facility] ANES POSTPROC EVALon 024 ANES POSTPROC EVAL Normal [facility] Basic metabolic 2000 panelon 03-06-2024 Anion gap [Moles/Vol] 9 mmol/L Normal 8-15 [facility] Comment on above: Order Comment: Speci men Type: BLOOD SPECIMENOrdering Facility: [facility] Address: [address] [place] [address] Performed By: #### 2 432-2, 2142-11 ####[facility] LABCLIA [id number] [place] [id number] [place] Calcium [Mass/Vol] 8.6 mg/dL Normal 8.5-10.2 [facility] Comment on above: Order Comment: Speci men Type: BLOOD SPECIMENOrdering Facility: [facility] Address: [address] [place], [place] [address] Performed By: #### 2 4321-2, 2142-11 ####[facility] LABCLIA [id number] [facility] [place] [id number] [place] Chloride [Moles/Vol] 102 mmol/L Normal 98-107 [facility] Comment on above: Order Comment: Speci men Type: BLOOD SPECIMENOrdering Facility: [facility] Address: [address] [place], [place] [address] Performed By: #### 2 4321-2, 2142-11 ####[facility] LABCLIA [id number] [facility] [address] [address] [place] CO2 [Moles/Vol] 26 mmol/L Normal 22-30 [facility] Comment on above: Order Comment: Speci men Type: BLOOD SPECIMENOrdering Facility: [facility] Address: [address] [place] [address] Performed By: #### 2 43206-24, 2142-11 ####[facility] LABCLIA [id number] [place] [id number] [place] Creatinine [Mass/Vol] 0.92 mg/dL Normal 0.73-1.22 [facility] Comment on above: Order Comment: Speci men Type: BLOOD SPECIMENOrdering Facility: [facility] Address: [address] [place] [address] Performed By: #### 2 4320-07, 2142-11 ####[facility] LABCLIA [id number] [place] [address] [place] Creatinine and Glomerular filtration rate.predicted panel (S/P/Bld) 82 mL/min/1.73m??? Normal >=60 [facility] Comment on above: Order Comment: Speci men Type: BLOOD SPECIMENOrdering Facility: [facility] Address: [address] [place] [address] Result Comment: Sun mated Glomerular Filtration Rate (eGFR) is calculated using the 2020 CKD-EPI creatinine equation. This equation utilizes serum creatinine, sex, and age as parameters. The creatinine assay has traceable calibration to isotope dilution-mass spectrometry. Refer to KDIGO guidelines for clinical interpretation. In patients with unstable renal function, e.g. those with acute kidney injury, the eGFR may not accurately reflect actual GFR. Performed By: #### 2 4320-, 2142-11 ####[facility] LABCLIA [id number] [place] [id number] [place] Glucose [Mass/Vol] 158 mg/dL High 74-99 [facility] Comment on above: Order Comment: Speci men Type: BLOOD SPECIMENOrdering Facility: [facility] Address: [address] [place] [address] Result Comment: The [place] [employer] (ADA) provides guidance for cutoff values for fasting glucose and random glucose. The ADA defines fasting as no caloric intake for at least 8 hours. Fasting plasma glucose results between 100 to 125 mg/dL indicate increased risk for diabetes (prediabetes).Fasting plasma glucose results greater than or equal to 126 mg/dL meet the criteria for diagnosis of diabetes. In the absence of unequivocal hyperglycemia, results should be confirmed by repeat testing. In a patient with classic symptoms of hyperglycemia or hyperglycemic crisis, random plasma glucose results greater than or equal to 200 mg/dL meet the criteria for diagnosis of diabetes.Reference: Standards of Medical Care in Diabetes 2016, [place] [employer]. Diabetes Care. 2016.39(Suppl 1). Performed By: #### 2 432-, 2142-11 ####[facility] LABCLIA [id number] [place] [address] [place] Potassium [Moles/Vol] 4.6 mmol/L Normal 3.7-5.1 [facility] Comment on above: Order Comment: Speci men Type: BLOOD SPECIMENOrdering Facility: [facility] Address: [address] [place] [id number] Performed By: #### 2 43206-24, 2142-11 ####[facility] LABIA [id number] [place] [address] [place] Sodium [Moles/Vol] 137 mmol/L Normal 136-144 [facility] Comment on above: Order Comment: Speci men Type: BLOOD SPECIMENOrdering Facility: [facility] Address: [address] [place] [address] Performed By: #### 2 4320-07, 2142-11 ####[facility] LABCLIA [id number] [place] [address] [place] Urea nitrogen [Mass/Vol] 13 mg/dL Normal 9-24 [facility] Comment on above: Order Comment: Speci men Type: BLOOD SPECIMENOrdering Facility: [facility] Address: [address] [place] [address] Performed By: #### 2 4321-2, 2143-6 ####[facility] LABCLIA [id number] [place] [address] [place] CBC panel Auto (Bld)on 03-06 Erythrocyte distribution width (RBC) [Ratio] 14.7 % Normal 11.5-15.0 [facility] Comment on above: Order Comment: Speci men Type: BLOOD SPECIMENOrdering Facility: [facility] Address: [address] [place] [address] Performed By: #### 5 8410-2 ####[facility] LABIA [id number] [place] [address] [place] Hematocrit (Bld) [Volume fraction] 38.3 % Low 39.0-51.0 [facility] Comment on above: Order Comment: Speci men Type: BLOOD SPECIMENOrdering Facility: [facility] Address: [address] [place] [address] Performed By: #### 5 8410-2 ####[facility] LABIA [id number] [place] [address] [place] Hemoglobin (Bld) [Mass/Vol] 12.7 g/dL Low 13.0-17.0 [facility] Comment on above: Order Comment: Speci men Type: BLOOD SPECIMENOrdering Facility: [facility] Address: [address] [place] [address] Performed By: #### 5 8410-2 ####[facility] LABCLIA [id number] [place] [address] [place] MCH (RBC) [Entitic mass] 32.8 pg Normal 26.0-34.0 [facility] Comment on above: Order Comment: Speci men Type: BLOOD SPECIMENOrdering Facility: [facility] Address: [address] [place] [address] Performed By: #### 5 8410-2 ####[facility] LABCLIA [id number] [place] [address] [place] MCHC (RBC) [Mass/Vol] 33.2 g/dL Normal 30.5-36.0 [facility] Comment on above: Order Comment: Speci men Type: BLOOD SPECIMENOrdering Facility: [facility] Address: [address] [place] [address] Performed By: #### 5 8410-2 ####[facility] LABCLIA [id number] [place] [address] [place] MCV (RBC) [Entitic vol] 99.0 fL Normal 80.0-100.0 [facility] Comment on above: Order Comment: Speci men Type: BLOOD SPECIMENOrdering Facility: [facility] Address: [address] [place] [address] Performed By: #### 5 8410-2 ####[facility] LABCLIA [id number] [place] [address] [place] Nucleated RBC (Bld) [#/Vol] 10*3/uL Normal <0.01 [facility] Comment on above: Order Comment: Speci men Type: BLOOD SPECIMENOrdering Facility: [facility] Address: [address] [place] [address] Performed By: #### 5 8410-2 ####[facility] LABCLIA [id number] [place] [address] [place] Platelet mean volume (Bld) [Entitic vol] 10.1 fL Normal 9.0-12.7 [facility] Comment on above: Order Comment: Speci men Type: BLOOD SPECIMENOrdering Facility: [facility] Address: [address] [place] [address] Performed By: #### 5 8410-2 ####[facility] LABCLIA [id number] [place] [address] [place] Platelets (Bld) [#/Vol] 153 10*3/uL Normal 150-400 [facility] Comment on above: Order Comment: Speci men Type: BLOOD SPECIMENOrdering Facility: [facility] Address: [address] [place] [address] Performed By: #### 5 8410-2 ####[facility] LABCLIA [id number] [place] [address] [place] RBC (Bld) [#/Vol] 3.87 10*6/uL Low 4.20-6.00 [facility] Comment on above: Order Comment: Speci men Type: BLOOD SPECIMENOrdering Facility: [facility] Address: [address] [place] [address] Performed By: #### 5 8410-2 ####[facility] LABCLIA [id number] [place] [address] [place] WBC (Bld) [#/Vol] 11.29 10*3/uL High 3.70-11.00 [facility] Comment on above: Order Comment: Speci men Type: BLOOD SPECIMENOrdering Facility: [facility] Address: [address] [place] [address] Performed By: #### 5 8410-2 ####[facility] LABCLIA [id number] [place] [address] [place] Cortdami Noblel-Martinon 03-06-20 24 Cortisol [Mass/Vol] 13.1 ug/dL Normal 4.8-19.5 [facility] Comment on above: Order Comment: Speci men Type: BLOOD SPECIMENOrdering Facility: [facility] Address: [address] [place] [address] Result Comment: Prov ided reference range is from 6-10 AM sample collection time.Cortisol Reference Range: 6-10 AM = 4.8-19.5 ug/dL, 4-8 PM = 2.5-11.9 ug/dL Performed By: #### 2 4321-2, 2143-6 ####[facility] LABCLIA [id number] [place] [address] [place] ECG COMPLETEon 03-06-2024 ECG COMPLETE Normal [facility] ANES PRE-OPon 03-05-2024 ANES PRE-OP Normal [facility] ARTERIAL BLOOD GASES WITH IO NIZED MAGNESIUMon 03-05-2024 Base excess Calc (Bld) [Moles/Vol] 0 mmol/L Normal 0-2 [facility] Comment on above: Order Comment: Speci men Type: ARTERIAL BLOOD SPECIMENOrdering Facility: [facility] Address: [address] [place] [address] Performed By: #### A LLMG ####[facility] LABCLIA [id number] [place] [address] [place] Body temperature 96.98 [degF] Normal [facility] Comment on above: Order Comment: Speci men Type: ARTERIAL BLOOD SPECIMENOrdering Facility: [facility] Address: [address] [place] [address] Performed By: #### A LLMG ####[facility] LABCLIA [id number] [place] [address] [place] Calcium.ionized (Bld) [Mass/Vol] 1.19 mmol/L Normal 1.08-1.30 [facility] Comment on above: Order Comment: Speci men Type: ARTERIAL BLOOD SPECIMENOrdering Facility: [facility] Address: [address] [place] [address] Performed By: #### A LLMG ####[facility] LABCLIA [id number] [place] [address] [place] Calcium.ionized adjusted to pH 7.4 (BldA) [Moles/Vol] 1.19 mmol/L Normal 1.08-1.30 [facility] Comment on above: Order Comment: Speci men Type: ARTERIAL BLOOD SPECIMENOrdering Facility: [facility] Address: [address] [place] [address] Performed By: #### A LLMG ####[facility] LABCLIA [id number] [place] [address] [place] Carboxyhemoglobin (BldA) [Mass fraction] 1.8 % Normal 0.0-2.0 [facility] Comment on above: Order Comment: Speci men Type: ARTERIAL BLOOD SPECIMENOrdering Facility: [facility] Address: [address] [place] [address] Result Comment: Carb oxyhemoglobin Reference Range for Smokers: 2.0-8.0% Performed By: #### A LLMG ####[facility] LABCLIA [id number] [place] [address] [place] CO2 (Bld) [Partial pressure] 38 mm Hg Normal 36-46 [facility] Comment on above: Order Comment: Speci men Type: ARTERIAL BLOOD SPECIMENOrdering Facility: [facility] Address: [address] [place] [address] Performed By: #### A LLMG ####[facility] LABCLIA [id number] [place] [address] [place] CO2 adjusted to patient's actual temperature (Bld) [Partial pressure] 37 mmHg Normal 36-46 [facility] Comment on above: Order Comment: Speci men Type: ARTERIAL BLOOD SPECIMENOrdering Facility: [facility] Address: [address] [place] [address] Performed By: #### A LLMG ####[facility] LABCLIA [id number] [place] [address] [place] Glucose [Mass/Vol] 172 mg/dL High 60-105 [facility] Comment on above: Order Comment: Speci men Type: ARTERIAL BLOOD SPECIMENOrdering Facility: [facility] Address: [address] [place] [address] Performed By: #### A LLMG ####[facility] LABCLIA [id number] [place] [address] [place] HCO3 (Bld) [Moles/Vol] 24 mmol/L Normal 22-26 [facility] Comment on above: Order Comment: Speci men Type: ARTERIAL BLOOD SPECIMENOrdering Facility: [facility] Address: [address] [place] [address] Performed By: #### A LLMG ####[facility] LABCLIA [id number] [place] [address] [place] Hematocrit (Bld) [Volume fraction] 37.7 % Low 39.0-51.0 [facility] Comment on above: Order Comment: Speci men Type: ARTERIAL BLOOD SPECIMENOrdering Facility: [facility] Address: [address] [place] [address] Performed By: #### A LLMG ####[facility] LABCLIA [id number] [place] [address] [place] Hemoglobin (Bld) [Mass/Vol] 12.3 g/dL Low 13.0-17.0 [facility] Comment on above: Order Comment: Speci men Type: ARTERIAL BLOOD SPECIMENOrdering Facility: [facility] Address: [address] [place] [address] Performed By: #### A LLMG ####[facility] LABCLIA [id number] [place] [address] [place] Lactate [Moles/Vol] 1.0 mmol/L Normal 0.5-2.2 [facility] Comment on above: Order Comment: Speci men Type: ARTERIAL BLOOD SPECIMENOrdering Facility: [facility] Address: [address] [place] [address] Performed By: #### A LLMG ####[facility] LABCLIA [id number] [place] [address] [place] LITERS 2 Liters/min Normal [facility] Comment on above: Order Comment: Speci men Type: ARTERIAL BLOOD SPECIMENOrdering Facility: [facility] Address: [address] [place] [address] Performed By: #### A LLMG ####[facility] LABCLIA [id number] [place] [id number] [place] Magnesium [Moles/Vol] 0.57 mmol/L Normal 0.45-0.60 [facility] Comment on above: Order Comment: Speci men Type: ARTERIAL BLOOD SPECIMENOrdering Facility: [facility] Address: [address] [place] [address] Performed By: #### A LLMG ####[facility] LABIA [id number] [place] [address] [place] Methemoglobin (Bld) [Mass fraction] 0.5 % Normal 0.0-1.5 [facility] Comment on above: Order Comment: Speci men Type: ARTERIAL BLOOD SPECIMENOrdering Facility: [facility] Address: [address] [place] [address] Performed By: #### A LLMG ####[facility] LABIA [id number] [place] [address] [place] O2 THERAPY NC = Nasal Cannula Normal [facility] Comment on above: Order Comment: Speci men Type: ARTERIAL BLOOD SPECIMENOrdering Facility: [facility] Address: [address] [place] [address] Performed By: #### A LLMG ####[facility] LABIA [id number] [place] [address] [place] Oxygen (Bld) [Partial pressure] 102 mm Hg High 85-95 [facility] Comment on above: Order Comment: Speci men Type: ARTERIAL BLOOD SPECIMENOrdering Facility: [facility] Address: [address] [place], [place] [id number] Performed By: #### A LLMG ####[facility] LABIA [id number] [place] [id number] [place] Oxygen adjusted to patient's actual temperature (Bld) [Partial pressure] 98 mmHg High 85-95 [facility] Comment on above: Order Comment: Speci men Type: ARTERIAL BLOOD SPECIMENOrdering Facility: [facility] Address: [address] [place] [address] Performed By: #### A LLMG ####[facility] LABCLIA [id number] [place] [address] [place] Oxyhemoglobin (BldA) [Mass fraction] 96 % Normal 95-98 [facility] Comment on above: Order Comment: Speci men Type: ARTERIAL BLOOD SPECIMENOrdering Facility: [facility] Address: [address] [place] [address] Performed By: #### A LLMG ####[facility] LABIA [id number] [place] [address] [place] pH (Bld) 7.41 [pH] Normal 7.35-7.45 [facility] Comment on above: Order Comment: Speci men Type: ARTERIAL BLOOD SPECIMENOrdering Facility: [facility] Address: [address] [place] [address] Performed By: #### A LLMG ####[facility] LABCLIA [id number] [place] [address] [place] pH adjusted to patient's actual temperature (Bld) 7.42 Normal 7.35-7.45 [facility] Comment on above: Order Comment: Speci men Type: ARTERIAL BLOOD SPECIMENOrdering Facility: [facility] Address: [address] [place] [address] Performed By: #### A LLMG ####[facility] LABCLIA [id number] [place] [address] [place] Potassium [Moles/Vol] 3.6 mmol/L Normal 3.5-5.0 [facility] Comment on above: Order Comment: Speci men Type: ARTERIAL BLOOD SPECIMENOrdering Facility: [facility] Address: [address] [place] [address] Performed By: #### A LLMG ####[facility] LABCLIA [id number] [place] [address] [place] Sodium [Moles/Vol] 137 mmol/L Normal 136-144 [facility] Comment on above: Order Comment: Speci men Type: ARTERIAL BLOOD SPECIMENOrdering Facility: [facility] Address: [address] [place] [address] Performed By: #### A LLMG ####[facility] LABIA [id number] [place] [address] [place] Base deficit (BldA) [Moles/Vol] -2 mmol/L Normal -2-0 [facility] Comment on above: Order Comment: Speci men Type: ARTERIAL BLOOD SPECIMENOrdering Facility: [facility] Address: [address] [place] [address] Performed By: #### A LLMG ####[facility] [id number] [place] [address] [place] Calcium.ionized (Bld) [Mass/Vol] 1.19 mmol/L Normal 1.08-1.30 [facility] Comment on above: Order Comment: Speci men Type: ARTERIAL BLOOD SPECIMENOrdering Facility: [facility] Address: [address] [place] [address] Performed By: #### A LLMG ####[facility] LABN[facility] [id number] [place] [address] [place] Calcium.ionized adjusted to pH 7.4 (BldA) [Moles/Vol] 1.18 mmol/L Normal 1.08-1.30 [facility] Comment on above: Order Comment: Speci men Type: ARTERIAL BLOOD SPECIMENOrdering Facility: [facility] Address: [address] [place] [address] Performed By: #### A LLMG ####[facility] LABIA [id number] [place] [address] [place] Carboxyhemoglobin (BldA) [Mass fraction] 1.3 % Normal 0.0-2.0 [facility] Comment on above: Order Comment: Speci men Type: ARTERIAL BLOOD SPECIMENOrdering Facility: [facility] Address: [address] [place] [address] Result Comment: Carb oxyhemoglobin Reference Range for Smokers: 2.0-8.0% Performed By: #### A LLMG ####[facility] LABCLIA [id number] [place] [address] [place] CO2 (Bld) [Partial pressure] 37 mm Hg Normal 36-46 [facility] Comment on above: Order Comment: Speci men Type: ARTERIAL BLOOD SPECIMENOrdering Facility: [facility] Address: [address] [place] [address] Performed By: #### A LLMG ####[facility] LABCLIA [id number] [place] [address] [place] CO2 adjusted to patient's actual temperature (Bld) [Partial pressure] 37 mmHg Normal 36-46 [facility] Comment on above: Order Comment: Speci men Type: ARTERIAL BLOOD SPECIMENOrdering Facility: [facility] Address: [address] [place] [address] Performed By: #### A LLMG ####[facility] LABCLIA [id number] [place] [address] [place] Glucose [Mass/Vol] 161 mg/dL High 60-105 [facility] Comment on above: Order Comment: Speci men Type: ARTERIAL BLOOD SPECIMENOrdering Facility: [facility] Address: [address] [place] [address] Performed By: #### A LLMG ####[facility] LABIA [id number] [place] [address] [place] HCO3 (Bld) [Moles/Vol] 22 mmol/L Normal 22-26 [facility] Comment on above: Order Comment: Speci men Type: ARTERIAL BLOOD SPECIMENOrdering Facility: [facility] Address: [address] [place] [address] Performed By: #### A LLMG ####[facility] LABCLIA [id number] [place] [address] [place] Hematocrit (Bld) [Volume fraction] 42.0 % Normal 39.0-51.0 [facility] Comment on above: Order Comment: Speci men Type: ARTERIAL BLOOD SPECIMENOrdering Facility: [facility] Address: [address] [place] [address] Performed By: #### A LLMG ####[facility] LABCLIA [id number] [place] [address] [place] Hemoglobin (Bld) [Mass/Vol] 13.7 g/dL Normal 13.0-17.0 [facility] Comment on above: Order Comment: Speci men Type: ARTERIAL BLOOD SPECIMENOrdering Facility: [facility] Address: [address] [place] [address] Performed By: #### A LLMG ####[facility] LABCLIA [id number] [place] [address] [place] Lactate [Moles/Vol] 1.2 mmol/L Normal 0.5-2.2 [facility] Comment on above: Order Comment: Speci men Type: ARTERIAL BLOOD SPECIMENOrdering Facility: [facility] Address: [address] [place] [address] Performed By: #### A LLMG ####[facility] LABCLIA [id number] [place] [address] [place] Magnesium [Moles/Vol] 0.61 mmol/L High 0.45-0.60 [facility] Comment on above: Order Comment: Speci men Type: ARTERIAL BLOOD SPECIMENOrdering Facility: [facility] Address: [address] [place] [address] Performed By: #### A LLMG ####[facility] LABCLIA [id number] [place] [address] [place] Methemoglobin (Bld) [Mass fraction] 0.5 % Normal 0.0-1.5 [facility] Comment on above: Order Comment: Speci men Type: ARTERIAL BLOOD SPECIMENOrdering Facility: [facility] Address: [address] [place] [address] Performed By: #### A LLMG ####[facility] LABCLIA [id number] [place] [address] [place] Oxygen (Bld) [Partial pressure] 165 mm Hg High 85-95 [facility] Comment on above: Order Comment: Speci men Type: ARTERIAL BLOOD SPECIMENOrdering Facility: [facility] Address: [address] [place] [address] Performed By: #### A LLMG ####[facility] LABCLIA [id number] [place] [address] [place] Oxygen adjusted to patient's actual temperature (Bld) [Partial pressure] 165 mmHg High 85-95 [facility] Comment on above: Order Comment: Speci men Type: ARTERIAL BLOOD SPECIMENOrdering Facility: [facility] Address: [address] [place] [address] Performed By: #### A LLMG ####[facility] LABCLIA [id number] [place] [address] [place] Oxyhemoglobin (BldA) [Mass fraction] 98 % Normal 95-98 [facility] Comment on above: Order Comment: Speci men Type: ARTERIAL BLOOD SPECIMENOrdering Facility: [facility] Address: [address] [place] [id number] Performed By: #### A LLMG ####[facility] LABCLIA [id number] [place] [address] [place] pH (Bld) 7.40 [pH] Normal 7.35-7.45 [facility] Comment on above: Order Comment: Speci men Type: ARTERIAL BLOOD SPECIMENOrdering Facility: [facility] Address: [address] [place] [address] Performed By: #### A LLMG ####[facility] LABCLIA [id number] [place] [address] [place] pH adjusted to patient's actual temperature (Bld) 7.40 Normal 7.35-7.45 [facility] Comment on above: Order Comment: Speci men Type: ARTERIAL BLOOD SPECIMENOrdering Facility: [facility] Address: [address] [place] [address] Performed By: #### A LLMG ####[facility] LABCLIA [id number] [place] [address] [place] Potassium [Moles/Vol] 3.7 mmol/L Normal 3.5-5.0 [facility] Comment on above: Order Comment: Speci men Type: ARTERIAL BLOOD SPECIMENOrdering Facility: [facility] Address: [address] [place] [address] Performed By: #### A LLMG ####[facility] LABCLIA [id number] [place] [address] [place] Sodium [Moles/Vol] 136 mmol/L Normal 136-144 [facility] Comment on above: Order Comment: Speci men Type: ARTERIAL BLOOD SPECIMENOrdering Facility: [facility] Address: [address] [place] [address] Performed By: #### A LLMG ####[facility] LABCLIA [id number] [place] [address] [place] Base deficit (BldA) [Moles/Vol] -1 mmol/L Normal -2-0 [facility] Comment on above: Order Comment: Speci men Type: ARTERIAL BLOOD SPECIMENOrdering Facility: [facility] Address: [address] [place] [address] Performed By: #### A LLMG ####[facility] LABCLIA [id number] [place] [address] [place] Calcium.ionized (Bld) [Mass/Vol] 1.26 mmol/L Normal 1.08-1.30 [facility] Comment on above: Order Comment: Speci men Type: ARTERIAL BLOOD SPECIMENOrdering Facility: [facility] Address: [address] [place] [address] Performed By: #### A LLMG ####[facility] LABCLIA [id number] [place] [address] [place] Calcium.ionized adjusted to pH 7.4 (BldA) [Moles/Vol] 1.26 mmol/L Normal 1.08-1.30 [facility] Comment on above: Order Comment: Speci men Type: ARTERIAL BLOOD SPECIMENOrdering Facility: [facility] Address: [address] [place] [address] Performed By: #### A LLMG ####[facility] LABCLIA [id number] [place] Carboxyhemoglobin (BldA) [Mass fraction] 1.5 % Normal 0.0-2.0 [facility] Comment on above: Order Comment: Speci men Type: ARTERIAL BLOOD SPECIMENOrdering Facility: [facility] Address: [address] [place] [address] Result Comment: Carb oxyhemoglobin Reference Range for Smokers: 2.0-8.0% Performed By: #### A LLMG ####[facility] LABCLIA [id number] [place] [address] [place] CO2 (Bld) [Partial pressure] 37 mm Hg Normal 36-46 [facility] Comment on above: Order Comment: Speci men Type: ARTERIAL BLOOD SPECIMENOrdering Facility: [facility] Address: [address] [place] [address] Performed By: #### A LLMG ####[facility] LABCLIA [id number] [place] [address] [place] CO2 adjusted to patient's actual temperature (Bld) [Partial pressure] 37 mmHg Normal 36-46 [facility] Comment on above: Order Comment: Speci men Type: ARTERIAL BLOOD SPECIMENOrdering Facility: [facility] Address: [address] [place] [address] Performed By: #### A LLMG ####[facility] LABCLIA [id number] [place] [address] [place] Glucose [Mass/Vol] 175 mg/dL High 60-105 [facility] Comment on above: Order Comment: Speci men Type: ARTERIAL BLOOD SPECIMENOrdering Facility: [facility] Address: [address] [place] [address] Performed By: #### A LLMG ####[facility] LABCLIA [id number] [place] [address] [place] HCO3 (Bld) [Moles/Vol] 22 mmol/L Normal 22-26 [facility] Comment on above: Order Comment: Speci men Type: ARTERIAL BLOOD SPECIMENOrdering Facility: [facility] Address: [address] [place] [address] Performed By: #### A LLMG ####[facility] LABCLIA [id number] [place] [address] [place] Hematocrit (Bld) [Volume fraction] 47.3 % Normal 39.0-51.0 [facility] Comment on above: Order Comment: Speci men Type: ARTERIAL BLOOD SPECIMENOrdering Facility: [facility] Address: [address] [place] [address] Performed By: #### A LLMG ####[facility] LABCLIA [id number] [place] [address] [place] Hemoglobin (Bld) [Mass/Vol] 15.4 g/dL Normal 13.0-17.0 [facility] Comment on above: Order Comment: Speci men Type: ARTERIAL BLOOD SPECIMENOrdering Facility: [facility] Address: [address] [place] [address] Performed By: #### A LLMG ####[facility] LABCLIA [id number] [place] [address] [place] Lactate [Moles/Vol] 1.3 mmol/L Normal 0.5-2.2 [facility] Comment on above: Order Comment: Speci men Type: ARTERIAL BLOOD SPECIMENOrdering Facility: [facility] Address: [address] [place] [address] Performed By: #### A LLMG ####[facility] LABCLIA [id number] [place] [address] [place] Magnesium [Moles/Vol] 0.68 mmol/L High 0.45-0.60 [facility] Comment on above: Order Comment: Speci men Type: ARTERIAL BLOOD SPECIMENOrdering Facility: [facility] Address: [address] [place] [address] Performed By: #### A LLMG ####[facility] LABCLIA [id number] [place] [address] [place] Methemoglobin (Bld) [Mass fraction] 1.1 % Normal 0.0-1.5 [facility] Comment on above: Order Comment: Speci men Type: ARTERIAL BLOOD SPECIMENOrdering Facility: [facility] Address: [address] [place] [address] Performed By: #### A LLMG ####[facility] LABCLIA [id number] [place] [address] [place] Oxygen (Bld) [Partial pressure] 204 mm Hg High 85-95 [facility] Comment on above: Order Comment: Speci men Type: ARTERIAL BLOOD SPECIMENOrdering Facility: [facility] Address: [address] [place] [address] Performed By: #### A LLMG ####[facility] LABCLIA [id number] [place] [address] [place] Oxygen adjusted to patient's actual temperature (Bld) [Partial pressure] 204 mmHg High 85-95 [facility] Comment on above: Order Comment: Speci men Type: ARTERIAL BLOOD SPECIMENOrdering Facility: [facility] Address: [address] [place] [address] Performed By: #### A LLMG ####[facility] LABCLIA [id number] [place] [address] [place] Oxyhemoglobin (BldA) [Mass fraction] 97 % Normal 95-98 [facility] Comment on above: Order Comment: Speci men Type: ARTERIAL BLOOD SPECIMENOrdering Facility: [facility] Address: [address] [place] [address] Performed By: #### A LLMG ####[facility] LABIA [id number] [place] [address] [place] pH (Bld) 7.40 [pH] Normal 7.35-7.45 [facility] Comment on above: Order Comment: Speci men Type: ARTERIAL BLOOD SPECIMENOrdering Facility: [facility] Address: [address] [place] [address] Performed By: #### A LLMG ####[facility] LABIA [id number] [place] [address] [place] pH adjusted to patient's actual temperature (Bld) 7.40 Normal 7.35-7.45 [facility] Comment on above: Order Comment: Speci men Type: ARTERIAL BLOOD SPECIMENOrdering Facility: [facility] Address: [address] [place] [address] Performed By: #### A LLMG ####[facility] LABIA [id number] [place] [address] [place] Potassium [Moles/Vol] 3.9 mmol/L Normal 3.5-5.0 [facility] Comment on above: Order Comment: Speci men Type: ARTERIAL BLOOD SPECIMENOrdering Facility: [facility] Address: [address] [place] [address] Performed By: #### A LLMG ####[facility] LABCLIA [id number] [place] [address] [place] Sodium [Moles/Vol] 136 mmol/L Normal 136-144 [facility] Comment on above: Order Comment: Speci men Type: ARTERIAL BLOOD SPECIMENOrdering Facility: [facility] Address: [address] [place] [address] Performed By: #### A LLMG ####[facility] LABCLIA [id number] [place] [address] [place] BRIEF OP NOTon 03-05-2024 BRIEF OP NOT Normal [facility] Basic metabolic 2000 panelon 03-05-2024 Anion gap [Moles/Vol] 11 mmol/L Normal 8-15 [facility] Comment on above: Order Comment: Speci men Type: BLOOD SPECIMENOrdering Facility: [facility] Address: [address] [place] [address] Performed By: #### 2 4321-2 ####[facility] LABIA [id number] [place] [address] [place] Calcium [Mass/Vol] 8.6 mg/dL Normal 8.5-10.2 [facility] Comment on above: Order Comment: Speci men Type: BLOOD SPECIMENOrdering Facility: [facility] Address: [address] [place] [address] Result Comment: Resu lt rechecked. Performed By: #### 2 4321-2 ####[facility] LABCLIA [id number] [place] [address] [place] Chloride [Moles/Vol] 106 mmol/L Normal 98-107 [facility] Comment on above: Order Comment: Speci men Type: BLOOD SPECIMENOrdering Facility: [facility] Address: [address] [place] [address] Performed By: #### 2 4321-2 ####[facility] LABCLIA [id number] [place] [address] [place] CO2 [Moles/Vol] 22 mmol/L Normal 22-30 [facility] Comment on above: Order Comment: Speci men Type: BLOOD SPECIMENOrdering Facility: [facility] Address: [address] [place] [address] Performed By: #### 2 4321-2 ####[facility] LABCLIA [id number] [place] [address] [place] Creatinine [Mass/Vol] 0.79 mg/dL Normal 0.73-1.22 [facility] Comment on above: Order Comment: Speci men Type: BLOOD SPECIMENOrdering Facility: [facility] Address: [address] [place] [address] Performed By: #### 2 4321-2 ####[facility] LABIA [id number] [address] [place] Creatinine and Glomerular filtration rate.predicted panel (S/P/Bld) 88 mL/min/1.73m??? Normal >=60 [facility] Comment on above: Order Comment: Speci men Type: BLOOD SPECIMENOrdering Facility: [facility] Address: [address] [place] [address] Result Comment: Sun mated Glomerular Filtration Rate (eGFR) is calculated using the 2020 CKD-EPI creatinine equation. This equation utilizes serum creatinine, sex, and age as parameters. The creatinine assay has traceable calibration to isotope dilution-mass spectrometry. Refer to KDIGO guidelines for clinical interpretation. In patients with unstable renal function, e.g. those with acute kidney injury, the eGFR may not accurately reflect actual GFR. Performed By: #### 2 4321-2 ####[facility] LABCLIA [id number] [place] [address] [place] Glucose [Mass/Vol] 156 mg/dL High 74-99 [facility] Comment on above: Order Comment: Speci men Type: BLOOD SPECIMENOrdering Facility: [facility] Address: [address] [place] [address] Result Comment: The [place] [employer] (ADA) provides guidance for cutoff values for fasting glucose and random glucose. The ADA defines fasting as no caloric intake for at least 8 hours. Fasting plasma glucose results between 100 to 125 mg/dL indicate increased risk for diabetes (prediabetes).Fasting plasma glucose results greater than or equal to 126 mg/dL meet the criteria for diagnosis of diabetes. In the absence of unequivocal hyperglycemia, results should be confirmed by repeat testing. In a patient with classic symptoms of hyperglycemia or hyperglycemic crisis, random plasma glucose results greater than or equal to 200 mg/dL meet the criteria for diagnosis of diabetes.Reference: Standards of Medical Care in Diabetes 2016, [place] [employer]. Diabetes Care. 2016.39(Suppl 1). Performed By: #### 2 4321-2 ####[facility] LABCLIA [id number] [place] [address] [place] Potassium [Moles/Vol] 3.8 mmol/L Normal 3.7-5.1 [facility] Comment on above: Order Comment: Speci men Type: BLOOD SPECIMENOrdering Facility: [facility] Address: [address] [place] [address] Performed By: #### 2 1-2 ####[facility] LABCLIA [id number] [place] [address] [place] Sodium [Moles/Vol] 139 mmol/L Normal 136-144 [facility] Comment on above: Order Comment: Speci men Type: BLOOD SPECIMENOrdering Facility: [facility] Address: [address] [id number] Performed By: #### 2 4321-2 ####[facility] LABCLIA [id number] [place] [address] [place] Urea nitrogen [Mass/Vol] 13 mg/dL Normal 9-24 [facility] Comment on above: Order Comment: Speci men Type: BLOOD SPECIMENOrdering Facility: [facility] Address: [address] [id number] Performed By: #### 2 4321-2 ####[facility] LABIA [id number] [place] [address] [place] CBC panel Auto (Bld)on 03-05 Erythrocyte distribution width (RBC) [Ratio] 14.6 % Normal 11.5-15.0 [facility] Comment on above: Order Comment: Speci men Type: BLOOD SPECIMENOrdering Facility: [facility] Address: [address] [place] [address] Performed By: #### 5 8410-2 ####[facility] LABIA [id number] [place] [address] [place] Hematocrit (Bld) [Volume fraction] 32.3 % Low 39.0-51.0 [facility] Comment on above: Order Comment: Speci men Type: BLOOD SPECIMENOrdering Facility: [facility] Address: [address] [place] [address] Performed By: #### 5 8410-2 ####[facility] [id number] [place] [address] [place] Hemoglobin (Bld) [Mass/Vol] 11.0 g/dL Low 13.0-17.0 [facility] Comment on above: Order Comment: Speci men Type: BLOOD SPECIMENOrdering Facility: [facility] Address: [address] [place] [address] Performed By: #### 5 8410-2 ####[facility] LABIA [id number] [place] [address] [place] MCH (RBC) [Entitic mass] 32.9 pg Normal 26.0-34.0 [facility] Comment on above: Order Comment: Speci men Type: BLOOD SPECIMENOrdering Facility: [facility] Address: [address] [place] [address] Performed By: #### 5 8410-2 ####[facility] LABNORTHEAST[facility] [id number] [address] [id number] [address] [place] MCHC (RBC) [Mass/Vol] 34.1 g/dL Normal 30.5-36.0 [facility] Comment on above: Order Comment: Speci men Type: BLOOD SPECIMENOrdering Facility: [facility] Address: [address] [place] [address] Performed By: #### 5 8410-2 ####[facility] LABCLIA [id number] [place] [address] [place] MCV (RBC) [Entitic vol] 96.7 fL Normal 80.0-100.0 [facility] Comment on above: Order Comment: Speci men Type: BLOOD SPECIMENOrdering Facility: [facility] Address: [address] [place] [address] Performed By: #### 5 8410-2 ####[facility] LABCLIA [id number] [place] [address] [place] Nucleated RBC (Bld) [#/Vol] 10*3/uL Normal <0.01 [facility] Comment on above: Order Comment: Speci men Type: BLOOD SPECIMENOrdering Facility: [facility] Address: [address] [place] [address] Performed By: #### 5 8410-2 ####[facility] LABCLIA [id number] [place] [address] [place] Platelet mean volume (Bld) [Entitic vol] 9.4 fL Normal 9.0-12.7 [facility] Comment on above: Order Comment: Speci men Type: BLOOD SPECIMENOrdering Facility: [facility] Address: [address] [place] [address] Performed By: #### 5 8410-2 ####[facility] LABCLIA [id number] [place] [address] [place] Platelets (Bld) [#/Vol] 141 10*3/uL Low 150-400 [facility] Comment on above: Order Comment: Speci men Type: BLOOD SPECIMENOrdering Facility: [facility] Address: [address] [place] [address] Performed By: #### 5 8410-2 ####[facility] LABIA [id number] [place] [address] [place] RBC (Bld) [#/Vol] 3.34 10*6/uL Low 4.20-6.00 [facility] Comment on above: Order Comment: Speci men Type: BLOOD SPECIMENOrdering Facility: [facility] Address: [address] [place] [address] Performed By: #### 5 8410-2 ####[facility] LABIA [id number] [place] [address] [place] WBC (Bld) [#/Vol] 8.91 10*3/uL Normal 3.70-11.00 [facility] Comment on above: Order Comment: Speci men Type: BLOOD SPECIMENOrdering Facility: [facility] Address: [address] [place] [address] Performed By: #### 5 8410-2 ####[facility] LABIA [id number] [place] [address] [place] Comprehensive metabolic 2000 panelon 03-05-2024 Albumin [Mass/Vol] 2.2 g/dL Low 3.9-4.9 [facility] Comment on above: Order Comment: Speci men Type: BLOOD SPECIMENOrdering Facility: [facility] Address: [address] [place] [address] Performed By: #### 2 4323-8 ####[facility] LABIA [id number] [place] [address] [place] ALP [Catalytic activity/Vol] 32 U/L Low 38-113 [facility] Comment on above: Order Comment: Speci men Type: BLOOD SPECIMENOrdering Facility: [facility] Address: [address] [place] [address] Performed By: #### 2 4323-8 ####[facility] LABCLIA [id number] [place] [address] [place] ALT [Catalytic activity/Vol] 7 U/L Low 10-54 [facility] Comment on above: Order Comment: Speci men Type: BLOOD SPECIMENOrdering Facility: [facility] Address: [address] [place] [address] Performed By: #### 2 4323-8 ####[facility] LABCLIA [id number] [place] [address] [place] Anion gap [Moles/Vol] 7 mmol/L Low 8-15 [facility] Comment on above: Order Comment: Speci men Type: BLOOD SPECIMENOrdering Facility: [facility] Address: [address] [place] [address] Performed By: #### 2 4323-8 ####[facility] LABCLIA [id number] [place] [address] [place] AST [Catalytic activity/Vol] 9 U/L Low 14-40 [facility] Comment on above: Order Comment: Speci men Type: BLOOD SPECIMENOrdering Facility: [facility] Address: [address] [place] [address] Performed By: #### 2 4323-8 ####[facility] LABCLIA [id number] [place] [address] [place] Bilirubin [Mass/Vol] 0.7 mg/dL Normal 0.2-1.3 [facility] Comment on above: Order Comment: Speci men Type: BLOOD SPECIMENOrdering Facility: [facility] Address: [address] [place] [address] Performed By: #### 2 4323-8 ####[facility] LABCLIA [id number] [place] [address] [place] Calcium [Mass/Vol] 4.8 mg/dL Low 8.5-10.2 [facility] Comment on above: Order Comment: Speci men Type: BLOOD SPECIMENOrdering Facility: [facility] Address: [address] [place] [address] Performed By: #### 2 4323-8 ####[facility] LABCLIA [id number] [place] [address] [place] Chloride [Moles/Vol] 124 mmol/L High 98-107 [facility] Comment on above: Order Comment: Speci men Type: BLOOD SPECIMENOrdering Facility: [facility] Address: [address] [place] [address] Performed By: #### 2 4323-8 ####[facility] LABCLIA [id number] [place] [address] [place] CO2 [Moles/Vol] 14 mmol/L Low 22-30 [facility] Comment on above: Order Comment: Speci men Type: BLOOD SPECIMENOrdering Facility: [facility] Address: [address] [place] [address] Performed By: #### 2 4323-8 ####[facility] LABCLIA [id number] [place] [address] [place] Creatinine [Mass/Vol] 0.44 mg/dL Low 0.73-1.22 [facility] Comment on above: Order Comment: Speci men Type: BLOOD SPECIMENOrdering Facility: [facility] Address: [address] [place] [address] Performed By: #### 2 4323-8 ####[facility] LABCLIA [id number] [place] [address] [place] Creatinine and Glomerular filtration rate.predicted panel (S/P/Bld) 105 mL/min/1.73m??? Normal >=60 [facility] Comment on above: Order Comment: Speci men Type: BLOOD SPECIMENOrdering Facility: [facility] Address: [address] [place] [address] Result Comment: Sun mated Glomerular Filtration Rate (eGFR) is calculated using the 2020 CKD-EPI creatinine equation. This equation utilizes serum creatinine, sex, and age as parameters. The creatinine assay has traceable calibration to isotope dilution-mass spectrometry. Refer to KDIGO guidelines for clinical interpretation. In patients with unstable renal function, e.g. those with acute kidney injury, the eGFR may not accurately reflect actual GFR. Performed By: #### 2 4323-8 ####[facility] LABCLIA [id number] [place] [address] [place] Glucose [Mass/Vol] 98 mg/dL Normal 74-99 [facility] Comment on above: Order Comment: Stan jiménez Type: BLOOD SPECIMENOrdering Facility: [facility] Address: [address] [place] [address] Result Comment: The [place] [employer] (ADA) provides guidance for cutoff values for fasting glucose and random glucose. The ADA defines fasting as no caloric intake for at least 8 hours. Fasting plasma glucose results between 100 to 125 mg/dL indicate increased risk for diabetes (prediabetes).Fasting plasma glucose results greater than or equal to 126 mg/dL meet the criteria for diagnosis of diabetes. In the absence of unequivocal hyperglycemia, results should be confirmed by repeat testing. In a patient with classic symptoms of hyperglycemia or hyperglycemic crisis, random plasma glucose results greater than or equal to 200 mg/dL meet the criteria for diagnosis of diabetes.Reference: Standards of Medical Care in Diabetes 2016, [place] [employer]. Diabetes Care. 2016.39(Suppl 1). Performed By: #### 2 4323-8 ####[facility] LABCLIA [id number] [address] [place] [id number] [place] Potassium [Moles/Vol] 2.4 mmol/L Critically low 3.7-5.1 [facility] Comment on above: Order Comment: Stan jiménez Type: BLOOD SPECIMENOrdering Facility: [facility] Address: [address] [place] [address] Performed By: #### 2 4323-8 ####[facility] LABCLIA [id number] [address] [place] [id number] [place] Protein [Mass/Vol] 3.3 g/dL Low 6.3-8.0 [facility] Comment on above: Order Comment: Speci men Type: BLOOD SPECIMENOrdering Facility: [facility] Address: [address] [place] [address] Performed By: #### 2 4323-8 ####[facility] LABCLIA [id number] [place] [address] [place] Sodium [Moles/Vol] 145 mmol/L High 136-144 [facility] Comment on above: Order Comment: Speci men Type: BLOOD SPECIMENOrdering Facility: [facility] Address: [address] [place] [address] Performed By: #### 2 4323-8 ####[facility] LABCLIA [id number] [place] [address] [place] Urea nitrogen [Mass/Vol] 10 mg/dL Normal 9-24 [facility] Comment on above: Order Comment: Speci men Type: BLOOD SPECIMENOrdering Facility: [facility] Address: [address] [place] [address] Performed By: #### 2 4323-8 ####[facility] LABCLIA [id number] [place] [address] [place] OPERATIVE NOon 03-05-2024 OPERATIVE NO Normal [facility] SURGICAL PATHOLOGYon 024 CASE REPORT Normal [facility] Comment on above: Order Comment: Speci men Type: TISSUE SPECIMENOrdering Facility: [facility] Address: [address] [place] [address] Result Comment: Surg ica Pathology Report Case: [id number] Provider: Bob Nunn MD Collected: 03/05/2024 08:08 PMOrdering Location: [place] [address] Received: 03/09/2024 09:13 AMPathologist: Roldan Wright MDSpecimen: Adrenal Gland, Left, Resection Performed By: #### S ####[facility] LABCLIA [id number] [place] [address] [place] CLINICAL HISTORY 23 cm nonfunctional left adrenal mass causing mass effect. Normal [facility] Comment on above: Order Comment: Speci men Type: TISSUE SPECIMENOrdering Facility: [facility] Address: [address] [place] [address] Performed By: #### S ####[facility] LABCLIA [id number] [place] [address] [place] FINAL DIAGNOSIS Normal [facility] Comment on above: Order Comment: Speci men Type: TISSUE SPECIMENOrdering Facility: [facility] Address: [address] [place] [address] Result Comment: A. A drenal gland, left, adrenalectomy:- Adrenal cortical adenoma with prominent central hemorrhage/infarct and focal dystrophic calcifications. Performed By: #### S ####[facility] LABCLIA [id number] [place] [address] [place] FINAL PERFORMING LAB Normal [facility] Comment on above: Order Comment: Speci men Type: TISSUE SPECIMENOrdering Facility: [facility] Address: [address] [place] [address] Result Comment: Diag nostic interpretation performed at [facility], [address] [place] [address] CLIA# [id number] Director: Tc Joya M.D. Performed By: #### S ####[facility] LABCLIA [id number] [place] [address] [place] GROSS DESCRIPTION Normal [facility] Comment on above: Order Comment: Speci men Type: TISSUE SPECIMENOrdering Facility: [facility] Address: [address] [place] [address] Result Comment: A. A drenal Gland, Left, ResectionReceived in formalin labeled ???Left adrenal gland resection??? is a 1223.6 g, 16.7 x 16.5 x 9.5 cm multifocally disrupted mass consistent with adrenal mass. The external surface is multifocally disrupted and extruding vera rubbery and friable material. Gross photographs are taken. The outer surface is inked black. Sectioning reveals the 16.2 x 16.5 x 9.2 cm mass to diffusely replaced the adrenal parenchyma with a thin rim of 3.2 x 2.0 x 0.5 cm uninvolved adrenal parenchyma identified separately submitted. The mass exhibits greater than 90% diffuse hemorrhage and necrosis. Grossly identifiable vascular invasion is not identified. Gross photographs are taken. The remaining uninvolved adrenal gland demonstrates the usual layering with no additional lesions identified.Social Media Intern sections are submitted as follows: A1-A2 mass with disrupted outer surface, A3-A6 additional peripheral possibly viable aspect of mass, A7 mass with relationship to uninvolved adrenal parenchyma, A8-A9 additional central mass, A10 additional uninvolved adrenal gland.Gross examination performed at [facility], [facility] [place] [address] CLIA# [id number] 03/09/24 Performed By: #### S ####[facility] LABCLIA [id number] [place] [address] [place] Bacteria identified Cx Nom ( U)Ordered By: Shaan Temple on 03-04-2024 Interpretation and review of laboratory results Normal [facility] Cardiology Visit Reporton Cardiology Visit Report [facility] [address] [place] [address]. [address] [place], [place] [address] OFFICE VISIT Date of Service: 03/04/24 MR#: [id number] Acct: [id number] Name: APRIL QUESADA Rep #: [id number] : 1940 Provider: ILIR rodriguez Age/Sex: 83/M Location: [facility] Status: Signed [facility] History of Present Illness Details: APIRL QUESADA, is a 83 M who presents to the office today for a cardiovascular outpatient follow-up. He has a history of atrial fibrillation with DC cardioversion on 02/12/17 which was initially successful but then reverted back to atrial fibrillation, hypertension, obesity, ocular migraines, mixed hyperlipidemia, anxiety disorder, peripheral vascular disease with carotid stenosis, and diabetes. From a cardiac standpoint, the patient is doing well. He denies any palpitations, chest pain, pressure or heaviness. He does acknowledge SOB-this is newer. He denies Orthopnea, and PND. He does not have bleeding issues; no blood in urine, stool or nosebleeds. He does acknowledge fatigue. He relates this to depression, and anxiety. He denies myalgias, or claudication. He denies edema, or sudden weight gain. He does acknowledge dizziness/lightheadedness. He denies syncopal or near syncopal episodes, and headaches. He states that he is scheduled to have an adrenal tumor removed tomorrow at [facility]. Intake Vital Signs 12/03/23 13:20 02/04/24 20:08 03/04/24 12:58 03/04/24 13:03 Height 5 ft 8 in 5 ft 8 in 5 ft 8 in 5 ft 8 in Weight: 190 lb BMI 28.8 BP 121/84 H Blood Pressure Location Lt brachial Position Sitting Respiration 18 Pulse 84 Pulse Source Monitor Pulse Oximetry (%) 98 Intake Visit Reasons: 3 M FU Molded Parts Inspector Required: No Is patient in pain?: No Allergies Cephalosporins Allergy (Verified 03/04/24 13:06) Rash doxycycline Allergy (Verified 03/04/24 13:06) Rash simvastatin (From Zocor) Adverse Reaction (Intermediate, Verified 03/04/24 13:06) Myalgias Medications ???Medication ???Instructions ???Recorded ???Confirmed ???Type clonidine HCl 0.1 mg tablet 0.1 mg PO DAILY 11/29/16 03/04/24 History lisinopril 40 mg tablet 40 mg PO DAILY 11/29/16 03/04/24 History allopurinol 100 mg tablet 100 mg PO DAILY 03/31/22 03/04/24 History fluticasone propionate 50 1 spray intranasal DAILY 12/03/23 03/04/24 History mcg/actuation nasal spray,suspension (Flonase Allergy Relief) furosemide 20 mg tablet 20 mg PO DAILY #30 tabs 12/03/23 03/04/24 Rx metformin 500 mg tablet 500 mg PO DAILY 12/03/23 03/04/24 History rivaroxaban 20 mg tablet (Xarelto) 20 mg PO QDAY #30 tabs 12/10/23 03/04/24 Rx amlodipine 10 mg tablet 10 mg PO DAILY 03/04/24 03/04/24 History atorvastatin 20 mg tablet 20 mg PO QHS 03/04/24 03/04/24 History carvedilol 3.125 mg tablet (Coreg) 3.125 mg PO BID 03/04/24 03/04/24 History mirtazapine 7.5 mg tablet 7.5 mg PO QHS 03/04/24 03/04/24 History Have you fallen in the past year?: No PFSH Medical History (Reviewed 03/04/24 @ 13:06 by Lola Sahni WILDLIFE BIOLOGY TECHNICIAN, WILDLIFE BIOLOGY TECHNICIAN-C) Essential hypertension Depression Anxiety BPH w urinary obs/LUTS Rosacea Type 2 diabetes mellitus without complications Hyperlipidemia Obesity Bilateral carotid artery stenosis Persistent atrial fibrillation Surgical History H/O left knee surgery History of tonsillectomy and adenoidectomy History of cardioversion (02/12/17) History of left heart catheterization (01/16/17) Family History (Reviewed 03/04/24 @ 13:06 by Lola Sahni WILDLIFE BIOLOGY TECHNICIAN, WILDLIFE BIOLOGY TECHNICIAN-C) Daughter Atrial tachycardia RFA Brother CAD (coronary artery disease) Social History household members: spouse Smoking Status: Former smoker how long ago did patient quit smokin years ago alcohol intake: never substance use type: does not use caffeine: Yes Type: coffee Number of servings: 2 ROS Const Const: Positive for fatigue; Negative for weakness, fever(s), headache(s), chills, frequent falls, weight gain or weight loss Eyes Eyes: Negative for blind spots, loss of peripheral vision, transient loss of vision, blurry vision, change in vision, double vision, floaters or tunnel vision ENT ENT: Positive for dizziness; Negative for headache(s), Nosebleed/epistaxis, balance problems or neck pain Cardio Chest Pain: No Palpitations: No Edema: None Muscle aches with walking: None Resp Respiratory: Positive for SOB with activity; Negative for SOB at rest or SOB orthopnea SOB lying down GI GI: Negative nausea, vomiting, heartburn, bloating, vomiting blood/hematemesis, bright, red blood in stools or black,tarry stools Musc Musc: Negative for muscle aches/ myalgia, muscle weakness, joint pain or balance problems (more content not included)... Normal [facility] URINE CULTUREOrdered By: Geo Temple on 03-04-2024 Bacteria identified Cx Nom (U) No growth (<1,000 CFU/ml) [facility] Culton Bacteria identified Cx Nom (U) CULTURE, URINE: No growth (<1,000 CFU/ml) Normal [facility] Comment on above: Performed By: #### 6 30-4 ####[facility] LABCLIA [id number] [place] [address] [place] CBC W Auto Differential pane l (Bld)on 03-03-2024 Basophils (Bld) [#/Vol] 0.10 10*3/uL [facility] Basophils/100 WBC (Bld) 1.1 % [facility] Differential cell count method Nom (Bld) Auto [facility] Eosinophils (Bld) [#/Vol] [facility] Eosinophils/100 WBC (Bld) 0.1 % [facility] Erythrocyte distribution width (RBC) [Ratio] 15.1 % High 11.5 - 15.0 % [facility] Hematocrit (Bld) [Volume fraction] 48.1 % 39.0 - 51.0 % [facility] Hemoglobin (Bld) [Mass/Vol] 16.4 g/dL 13.0 - 17.0 g/dL [facility] Immature granulocytes (Bld) [#/Vol] 0.03 10*3/uL [facility] Immature granulocytes/100 WBC (Bld) 0.3 % [facility] Interpretation and review of laboratory results Abnormal [facility] Lymphocytes (Bld) [#/Vol] 1.31 10*3/uL [facility] Lymphocytes/100 WBC (Bld) 14.8 % [facility] MCH (RBC) [Entitic mass] 31.9 pg 26.0 - 34.0 pg [facility] MCHC (RBC) [Mass/Vol] 34.1 g/dL 30.5 - 36.0 g/dL [facility] MCV (RBC) [Entitic vol] 93.6 fL 80.0 - 100.0 fL [facility] Monocytes (Bld) [#/Vol] 0.74 10*3/uL [facility] Monocytes/100 WBC (Bld) 8.4 % [facility] Neutrophils (Bld) [#/Vol] 6.65 10*3/uL [facility] Neutrophils/100 WBC (Bld) 75.3 % [facility] Nucleated RBC (Bld) [#/Vol] NINF [facility] Nucleated RBC/100 WBC (Bld) [Ratio] 0.0 % /100 WBC [facility] Platelet mean volume (Bld) [Entitic vol] 9.4 fL 9.0 - 12.7 fL [facility] Platelets (Bld) [#/Vol] 214 10*3/uL [facility] RBC (Bld) [#/Vol] 5.14 10*6/uL 4.20 - 6.0 0 m/uL [facility] WBC (Bld) [#/Vol] 8.84 10*3/uL [facility] Basophils (Bld) [#/Vol] 0.10 10*3/uL Normal <0.11 [facility] Comment on above: Order Comment: Speci men Type: BLOOD SPECIMENOrdering Facility: [facility] Address: [address] [place] [address] Performed By: #### 5 7021-8 ####[facility] [id number] [place] [address] [place] Basophils/100 WBC (Bld) 1.1 % Normal [facility] Comment on above: Order Comment: Speci men Type: BLOOD SPECIMENOrdering Facility: [facility] Address: [address] [place] [address] Performed By: #### 5 7021-8 ####[facility] [id number] [place] [address] [place] Differential cell count method Nom (Bld) Auto Normal [facility] Comment on above: Order Comment: Speci men Type: BLOOD SPECIMENOrdering Facility: [facility] Address: [address] [place] [address] Performed By: #### 5 7021-8 ####[facility] MERYATLANTICCHARLES [id number] [place] [address] [place] Eosinophils (Bld) [#/Vol] 10*3/uL Normal <0.46 [facility] Comment on above: Order Comment: Speci men Type: BLOOD SPECIMENOrdering Facility: [facility] Address: [address] [place] [address] Performed By: #### 5 7021-8 ####[facility] [id number] [place] [address] [place] Eosinophils/100 WBC (Bld) 0.1 % Normal [facility] Comment on above: Order Comment: Speci men Type: BLOOD SPECIMENOrdering Facility: [facility] Address: [address] [place] [address] Performed By: #### 5 7021-8 ####[facility] [id number] [place] [address] [place] Erythrocyte distribution width (RBC) [Ratio] 15.1 % High 11.5-15.0 [facility] Comment on above: Order Comment: Speci men Type: BLOOD SPECIMENOrdering Facility: [facility] Address: [address] [place] [address] Performed By: #### 5 7021-8 ####[facility] [id number] [place] [address] [place] Hematocrit (Bld) [Volume fraction] 48.1 % Normal 39.0-51.0 [facility] Comment on above: Order Comment: Speci men Type: BLOOD SPECIMENOrdering Facility: [facility] Address: [address] [place] [address] Performed By: #### 5 7021-8 ####[facility] [id number] [place] [address] [place] Hemoglobin (Bld) [Mass/Vol] 16.4 g/dL Normal 13.0-17.0 [facility] Comment on above: Order Comment: Speci men Type: BLOOD SPECIMENOrdering Facility: [facility] Address: [address] [place] [address] Performed By: #### 5 7021-8 ####[facility] [id number] [place] [address] [place] Immature granulocytes (Bld) [#/Vol] 0.03 10*3/uL Normal <0.10 [facility] Comment on above: Order Comment: Speci men Type: BLOOD SPECIMENOrdering Facility: [facility] Address: [address] [place] [address] Performed By: #### 5 7021-8 ####[facility] [id number] [place] [address] [place] Immature granulocytes/100 WBC (Bld) 0.3 % Normal [facility] Comment on above: Order Comment: Speci men Type: BLOOD SPECIMENOrdering Facility: [facility] Address: [address] [place] [address] Performed By: #### 5 7021-8 ####[facility] [id number] [place] [address] [place] Lymphocytes (Bld) [#/Vol] 1.31 10*3/uL Normal 1.00-4.00 [facility] Comment on above: Order Comment: Speci men Type: BLOOD SPECIMENOrdering Facility: [facility] Address: [address] [place] [address] Performed By: #### 5 7021-8 ####[facility] [id number] [place] [address] [place] Lymphocytes/100 WBC (Bld) 14.8 % Normal [facility] Comment on above: Order Comment: Speci men Type: BLOOD SPECIMENOrdering Facility: [facility] Address: [address] [place] [address] Performed By: #### 5 7021-8 ####[facility] [id number] [address] STATES [facility] MCH (RBC) [Entitic mass] 31.9 pg Normal 26.0-34.0 [facility] Comment on above: Order Comment: Speci men Type: BLOOD SPECIMENOrdering Facility: [facility] Address: [address] [place] [address] Performed By: #### 5 7021-8 ####[facility] [id number] [place] [address] [place] MCHC (RBC) [Mass/Vol] 34.1 g/dL Normal 30.5-36.0 [facility] Comment on above: Order Comment: Speci men Type: BLOOD SPECIMENOrdering Facility: [facility] Address: [address] [place] [address] Performed By: #### 5 7021-8 ####[facility] [id number] [address] [place] MCV (RBC) [Entitic vol] 93.6 fL Normal 80.0-100.0 [facility] Comment on above: Order Comment: Speci men Type: BLOOD SPECIMENOrdering Facility: [facility] Address: [address] [place], [place] [id number] Performed By: #### 5 7021-8 ####[facility] [id number] [place] [address] [place] Monocytes (Bld) [#/Vol] 0.74 10*3/uL Normal <0.87 [facility] Comment on above: Order Comment: Speci men Type: BLOOD SPECIMENOrdering Facility: [facility] Address: [address] [place] [address] Performed By: #### 5 7021-8 ####[facility] MERYWABDOULAYELIA [id number] [place] [address] [place] Monocytes/100 WBC (Bld) 8.4 % Normal [facility] Comment on above: Order Comment: Speci men Type: BLOOD SPECIMENOrdering Facility: [facility] Address: [address] [place] [address] Performed By: #### 5 7021-8 ####[facility] [id number] [place] [address] [place] Neutrophils (Bld) [#/Vol] 6.65 10*3/uL Normal 1.45-7.50 [facility] Comment on above: Order Comment: Speci men Type: BLOOD SPECIMENOrdering Facility: [facility] Address: [address] [place] [address] Performed By: #### 5 7021-8 ####[facility] [id number] [place] [address] [place] Neutrophils/100 WBC (Bld) 75.3 % Normal [facility] Comment on above: Order Comment: Speci men Type: BLOOD SPECIMENOrdering Facility: [facility] Address: [address] [place] [address] Performed By: #### 5 7021-8 ####[facility] MERYATLANTICNCLIA [id number] [place] [address] [place] Nucleated RBC (Bld) [#/Vol] 10*3/uL Normal <0.01 [facility] Comment on above: Order Comment: Speci men Type: BLOOD SPECIMENOrdering Facility: [facility] Address: [address] [place] [address] Performed By: #### 5 7021-8 ####[facility] RIVERSIDEWNCLIA [id number] [place] [address] [place] Nucleated RBC/100 WBC (Bld) [Ratio] 0.0 /100 WBC Normal [facility] Comment on above: Order Comment: Speci men Type: BLOOD SPECIMENOrdering Facility: [facility] Address: [address] [place] [address] Performed By: #### 5 7021-8 ####[facility] MERYBRYNA [id number] [place] [address] [place] Platelet mean volume (Bld) [Entitic vol] 9.4 fL Normal 9.0-12.7 [facility] Comment on above: Order Comment: Speci men Type: BLOOD SPECIMENOrdering Facility: [facility] Address: [address] [place] [address] Performed By: #### 5 7021-8 ####[facility]ILDRENABDOULAYEA [id number] [place] [address] [place] Platelets (Bld) [#/Vol] 214 10*3/uL Normal 150-400 [facility] Comment on above: Order Comment: Speci men Type: BLOOD SPECIMENOrdering Facility: [facility] Address: [address] [place] [address] Performed By: #### 5 7021-8 ####[facility] MERYATLANTICABODULAYELIA [id number] [place] [address] [place] RBC (Bld) [#/Vol] 5.14 10*6/uL Normal 4.20-6.00 [facility] Comment on above: Order Comment: Speci men Type: BLOOD SPECIMENOrdering Facility: [facility] Address: [address] [place] [address] Performed By: #### 5 7021-8 ####[facility] [id number] [place] [address] [place] WBC (Bld) [#/Vol] 8.84 10*3/uL Normal 3.70-11.00 [facility] Comment on above: Order Comment: Speci men Type: BLOOD SPECIMENOrdering Facility: [facility] Address: [address] [place] [address] Performed By: #### 5 7021-8 ####[facility] CENTRALLIA [id number] [place] [address] [place] CNPNon 03-03-2024 CNPN Normal [facility] CONFIRM BLOOD TYPEon 024 ABO O Normal [facility] Comment on above: Order Comment: Speci men Type: BLOOD SPECIMENOrdering Facility: [facility] Address: [address] [place] [address] Performed By: #### C ONABO ####[facility] BANKCLIA [id number] [place] [address] [place] Rh Nom (Bld) Positive Normal [facility] Comment on above: Order Comment: Speci men Type: BLOOD SPECIMENOrdering Facility: [facility] Address: [address] [place] [address] Performed By: #### C ONABO ####[facility] BLOOD BANKCLIA [id number] [place] [address] [place] Comprehensive metabolic 2000 panelOrdered By: Eloise George on 03-03-2024 Albumin [Mass/Vol] 4.2 g/dL 3.9 - 4.9 g/dL [facility] ALP [Catalytic activity/Vol] 93 U/L 38 - 113 U/L [facility] ALT [Catalytic activity/Vol] 11 U/L 10 - 54 U/L [facility] Anion gap [Moles/Vol] 10 mmol/L 8 - 15 mmol/L [facility] AST [Catalytic activity/Vol] 11 U/L Low 14 - 40 U/L [facility] Bilirubin [Mass/Vol] 0.9 mg/dL 0.2 - 1 .3 mg/dL [facility] Calcium [Mass/Vol] 10.1 mg/dL 8.5 - 10. 2 mg/dL [facility] Chloride [Moles/Vol] 103 mmol/L 98 - 10 7 mmol/L [facility] CO2 [Moles/Vol] 24 mmol/L 22 - 30 mmol/L [facility] Creatinine [Mass/Vol] 0.90 mg/dL 0.73 - 1.22 mg/dL [facility] GFR/1.73 sq M.predicted among non-blacks MDRD (S/P/Bld) [Vol rate/Area] 84 mL/min/{1.73_m2} - PINF [facility] Comment on above: Estimated Glomerular Filtration Rate (eGFR) is calculated using the 2020 CKD-EPI creatinine equation. This equation utilizes serum creatinine, sex, and age as parameters. The creatinine assay has traceable calibration to isotope dilution-mass spectrometry. Refer to KDIGO guidelines for clinical interpretation. In patients with unstable renal function, e.g. those with acute kidney injury, the eGFR may not accurately reflect actual GFR. Glucose [Mass/Vol] 162 mg/dL High 74 - 99 mg/dL [facility] Comment on above: The [place] Diabete s Association (ADA) provides guidance for cutoff values for fasting glucose and random glucose. The ADA defines fasting as no caloric intake for at least 8 hours. Fasting plasma glucose results between 100 to 125 mg/dL indicate increased risk for diabetes (prediabetes). Fasting plasma glucose results greater than or equal to 126 mg/dL meet the criteria for diagnosis of diabetes. In the absence of unequivocal hyperglycemia, results should be confirmed by repeat testing. In a patient with classic symptoms of hyperglycemia or hyperglycemic crisis, random plasma glucose results greater than or equal to 200 mg/dL meet the criteria for diagnosis of diabetes. Reference: Standards of Medical Care in Diabetes 2016, [place] [employer] Association. Diabetes Care. 2016.39(Suppl 1). Interpretation and review of laboratory results Abnormal [facility] Potassium [Moles/Vol] 4.6 mmol/L 3.7 - 5.1 mmol/L [facility] Protein [Mass/Vol] 6.5 g/dL 6.3 - 8.0 g/dL [facility] Sodium [Moles/Vol] 137 mmol/L 136 - 144 mmol/L [facility] Urea nitrogen [Mass/Vol] 19 mg/dL 9 - 24 mg/dL [facility] Comprehensive metabolic 2000 panelon 03-03-2024 Albumin [Mass/Vol] 4.2 g/dL Normal 3.9-4.9 [facility] Comment on above: Order Comment: Speci men Type: BLOOD SPECIMENOrdering Facility: [facility] Address: [address] [place] [address] Performed By: #### 2 4323-8 ####[facility] [id number] [place] [address] [place] ALP [Catalytic activity/Vol] 93 U/L Normal 38-113 [facility] Comment on above: Order Comment: Speci men Type: BLOOD SPECIMENOrdering Facility: [facility] Address: [address] [place] [address] Performed By: #### 2 4323-8 ####[facility] [id number] [place] [address] [place] ALT [Catalytic activity/Vol] 11 U/L Normal 10-54 [facility] Comment on above: Order Comment: Speci men Type: BLOOD SPECIMENOrdering Facility: [facility] Address: [address] [place] [address] Performed By: #### 2 4323-8 ####[facility] [id number] [place] [address] [place] Anion gap [Moles/Vol] 10 mmol/L Normal 8-15 [facility] Comment on above: Order Comment: Speci men Type: BLOOD SPECIMENOrdering Facility: [facility] Address: [address] [place] [address] Performed By: #### 2 4323-8 ####[facility] [id number] [place] [address] [place] AST [Catalytic activity/Vol] 11 U/L Low 14-40 [facility] Comment on above: Order Comment: Speci men Type: BLOOD SPECIMENOrdering Facility: [facility] Address: [address] [place] [address] Performed By: #### 2 4323-8 ####[facility] MILLTOWNCLIA [id number] [place] [address] [place] Bilirubin [Mass/Vol] 0.9 mg/dL Normal 0.2-1.3 [facility] Comment on above: Order Comment: Speci men Type: BLOOD SPECIMENOrdering Facility: [facility] Address: [address] [place] [address] Performed By: #### 2 4323-8 ####[facility] MILLTOWNCLIA [id number] [place] [address] [place] Calcium [Mass/Vol] 10.1 mg/dL Normal 8.5-10.2 [facility] Comment on above: Order Comment: Speci men Type: BLOOD SPECIMENOrdering Facility: [facility] Address: [address] [place] [address] Performed By: #### 2 4323-8 ####[facility] [facility] MILLTOWNCLIA [id number] [place] [address] [place] Chloride [Moles/Vol] 103 mmol/L Normal 98-107 [facility] Comment on above: Order Comment: Speci men Type: BLOOD SPECIMENOrdering Facility: [facility] Address: [address] [place] [address] Performed By: #### 2 4323-8 ####[facility] MILLTOWNCLIA [id number] [place] [address] [place] CO2 [Moles/Vol] 24 mmol/L Normal 22-30 [facility] Comment on above: Order Comment: Speci men Type: BLOOD SPECIMENOrdering Facility: [facility] Address: [address] [place] [address] Performed By: #### 2 4323-8 ####[facility] MILLTOWNCLIA [id number] [place] [address] [place] Creatinine [Mass/Vol] 0.90 mg/dL Normal 0.73-1.22 [facility] Comment on above: Order Comment: Stan jiménez Type: BLOOD SPECIMENOrdering Facility: [facility] Address: [address] [place] [address] Performed By: #### 2 4323-8 ####[facility] [id number] [place] [address] [place] Creatinine and Glomerular filtration rate.predicted panel (S/P/Bld) 84 mL/min/1.73m??? Normal >=60 [facility] Comment on above: Order Comment: Stan jiménez Type: BLOOD SPECIMENOrdering Facility: [facility] Address: [address] [place] [address] Result Comment: Sun mated Glomerular Filtration Rate (eGFR) is calculated using the 2020 CKD-EPI creatinine equation. This equation utilizes serum creatinine, sex, and age as parameters. The creatinine assay has traceable calibration to isotope dilution-mass spectrometry. Refer to KDIGO guidelines for clinical interpretation. In patients with unstable renal function, e.g. those with acute kidney injury, the eGFR may not accurately reflect actual GFR. Performed By: #### 2 4323-8 ####[facility] [id number] [place] [address] [place] Glucose [Mass/Vol] 162 mg/dL High 74-99 [facility] Comment on above: Order Comment: Stan jiménez Type: BLOOD SPECIMENOrdering Facility: [facility] Address: [address] [place] [address] Result Comment: The [place] Diabetes Association (ADA) provides guidance for cutoff values for fasting glucose and random glucose. The ADA defines fasting as no caloric intake for at least 8 hours. Fasting plasma glucose results between 100 to 125 mg/dL indicate increased risk for diabetes (prediabetes).Fasting plasma glucose results greater than or equal to 126 mg/dL meet the criteria for diagnosis of diabetes. In the absence of unequivocal hyperglycemia, results should be confirmed by repeat testing. In a patient with classic symptoms of hyperglycemia or hyperglycemic crisis, random plasma glucose results greater than or equal to 200 mg/dL meet the criteria for diagnosis of diabetes.Reference: Standards of Medical Care in Diabetes 2016, [place] Diabetes Association. Diabetes Care. 2016.39(Suppl 1). Performed By: #### 2 4323-8 ####[facility] [id number] [place] [address] [place] Potassium [Moles/Vol] 4.6 mmol/L Normal 3.7-5.1 [facility] Comment on above: Order Comment: Speci men Type: BLOOD SPECIMENOrdering Facility: [facility] Address: [address] [place] [address] Performed By: #### 2 4323-8 ####[facility] [id number] [place] [address] [place] Protein [Mass/Vol] 6.5 g/dL Normal 6.3-8.0 [facility] Comment on above: Order Comment: Speci men Type: BLOOD SPECIMENOrdering Facility: [facility] Address: [address] [place], [place] [address] Performed By: #### 2 4323-8 ####[facility] [id number] [place] [address] [place] Sodium [Moles/Vol] 137 mmol/L Normal 136-144 [facility] Comment on above: Order Comment: Speci men Type: BLOOD SPECIMENOrdering Facility: [facility] Address: [address] [place] [address] Performed By: #### 2 4323-8 ####[facility] [id number] [place] [address] [place] Urea nitrogen [Mass/Vol] 19 mg/dL Normal 9-24 [facility] Comment on above: Order Comment: Speci men Type: BLOOD SPECIMENOrdering Facility: [facility] Address: [address] [place] [address] Performed By: #### 2 4323-8 ####[facility] [id number] [place] [id number] [place] HISTORY PHYSICALon HISTORY PHYSICAL Normal [facility] HbA1c (Bld)on 03-03-2024 Average glucose Estimated from glycated hemoglobin (Bld) [Mass/Vol] 146 mg/dL [facility] Comment on above: eAG: (Estimated aver age glucose) is a calculated value from HgbA1c and is franchise sales representative of the average blood glucose level in the last 2-3 month period. HbA1c (Bld) [Mass fraction] 6.7 % High 4.3 - 5.6 % [facility] Comment on above: [place] Diabetes As sociation guidelines indicate that patients with HgbA1c in the range 5.7-6.4% are at increased risk for development of diabetes, and intervention by lifestyle modification may be beneficial. HgbA1c greater or equal to 6.5% is considered diagnostic of diabetes. Interpretation and review of laboratory results Abnormal [facility] Average glucose Estimated from glycated hemoglobin (Bld) [Mass/Vol] 146 mg/dL Normal [facility] Comment on above: Order Comment: Stan jiménez Type: BLOOD SPECIMENOrdering Facility: [facility] Address: [address] [place] [address] Result Comment: eAG: (Estimated average glucose) is a calculated value from HgbA1c and is franchise sales representative of the average blood glucose level in the last 2-3 month period. Performed By: #### 5 5454-3 ####[facility] LABCLIA [id number] [place] [address] [place] HbA1c (Bld) [Mass fraction] 6.7 % High 4.3-5.6 [facility] Comment on above: Order Comment: Stan jiménez Type: BLOOD SPECIMENOrdering Facility: [facility] Address: [address] [place] [address] Result Comment: [place] Diabetes Association guidelines indicate that patients with HgbA1c in the range 5.7-6.4% are at increased risk for development of diabetes, and intervention by lifestyle modification may be beneficial. HgbA1c greater or equal to 6.5% is considered diagnostic of diabetes. Performed By: #### 5 5454-3 ####[facility] LABCLIA [id number] [place] [address] [place] TYPE AND SCREEN,30 DAYon ABO O Normal [facility] Comment on above: Order Comment: Speci men Type: BLOOD SPECIMENOrdering Facility: [facility] Address: [address] [place] [address] Performed By: #### T SCR30 ####[facility] B[facility] BANKCLIA [id number] [place] [address] [place] HISTORICAL AB SCR STATUS Negative Normal [facility] Comment on above: Order Comment: Speci men Type: BLOOD SPECIMENOrdering Facility: [facility] Address: [address] [place] [address] Performed By: #### T SCR30 ####[facility] BLO[facility] BANKCLIA [id number] [place] [address] [place] Rh Nom (Bld) Positive Normal [facility] Comment on above: Order Comment: Speci men Type: BLOOD SPECIMENOrdering Facility: [facility] Address: [address] [place] [address] Performed By: #### T SCR30 ####[facility] BANKIA [id number] [place] [address] [place] CNOVon 03-02-2024 CNOV Normal [facility] CNPNon 03-02-2024 CNPN Normal [facility] CNPNon 03-01-2024 CNPN Normal [facility] CNPTOUTREACHon 02-16-2024 CNPTOUTREACH Normal [facility] Basic metabolic 2000 panelon 02-14-2024 Anion gap [Moles/Vol] 9 mmol/L Normal 8-15 [facility] Comment on above: Order Comment: Speci men Type: BLOOD SPECIMENOrdering Facility: [facility] Address: [address] [place] [id number] Performed By: #### 2 4321-2 ####[facility] LABCLIA [id number] [address] [address] [place] Calcium [Mass/Vol] 8.8 mg/dL Normal 8.5-10.2 [facility] Comment on above: Order Comment: Speci men Type: BLOOD SPECIMENOrdering Facility: [facility] Address: [address] [place] [address] Performed By: #### 2 4321-2 ####[facility] LABCLIA [id number] [place] [address] [place] Chloride [Moles/Vol] 104 mmol/L Normal 98-107 [facility] Comment on above: Order Comment: Speci men Type: BLOOD SPECIMENOrdering Facility: [facility] Address: [address] [place] [address] Performed By: #### 2 4321-2 ####[facility] LABCLIA [id number] [place] [address] [place] CO2 [Moles/Vol] 24 mmol/L Normal 22-30 [facility] Comment on above: Order Comment: Speci men Type: BLOOD SPECIMENOrdering Facility: [facility] Address: [address] [place], [place] [address] Performed By: #### 2 4321-2 ####[facility] LABCLIA [id number] [facility] [place] [id number] [place] Creatinine [Mass/Vol] 1.12 mg/dL Normal 0.73-1.22 [facility] Comment on above: Order Comment: Speci men Type: BLOOD SPECIMENOrdering Facility: [facility] Address: [address] [place], [place] [address] Performed By: #### 2 4321-2 ####[facility] LABCLIA [id number] [place] [address] [place] Creatinine and Glomerular filtration rate.predicted panel (S/P/Bld) 65 mL/min/1.73m??? Normal >=60 [facility] Comment on above: Order Comment: Stan jiménez Type: BLOOD SPECIMENOrdering Facility: [facility] Address: [address] [place] [address] Result Comment: Sun mated Glomerular Filtration Rate (eGFR) is calculated using the 2020 CKD-EPI creatinine equation. This equation utilizes serum creatinine, sex, and age as parameters. The creatinine assay has traceable calibration to isotope dilution-mass spectrometry. Refer to KDIGO guidelines for clinical interpretation. In patients with unstable renal function, e.g. those with acute kidney injury, the eGFR may not accurately reflect actual GFR. Performed By: #### 2 4321-2 ####[facility] LABCLIA [id number] [place] [address] [place] Glucose [Mass/Vol] 252 mg/dL High 74-99 [facility] Comment on above: Order Comment: Stan jiménez Type: BLOOD SPECIMENOrdering Facility: [facility] Address: [address] [place] [address] Result Comment: The [place] Diabetes Association (ADA) provides guidance for cutoff values for fasting glucose and random glucose. The ADA defines fasting as no caloric intake for at least 8 hours. Fasting plasma glucose results between 100 to 125 mg/dL indicate increased risk for diabetes (prediabetes).Fasting plasma glucose results greater than or equal to 126 mg/dL meet the criteria for diagnosis of diabetes. In the absence of unequivocal hyperglycemia, results should be confirmed by repeat testing. In a patient with classic symptoms of hyperglycemia or hyperglycemic crisis, random plasma glucose results greater than or equal to 200 mg/dL meet the criteria for diagnosis of diabetes.Reference: Standards of Medical Care in Diabetes 2016, [place] Diabetes Association. Diabetes Care. 2016.39(Suppl 1). Performed By: #### 2 4321-2 ####[facility] LABCLIA [id number] [place] [address] [place] Potassium [Moles/Vol] 4.5 mmol/L Normal 3.7-5.1 [facility] Comment on above: Order Comment: Speci men Type: BLOOD SPECIMENOrdering Facility: [facility] Address: [address] [place] [address] Performed By: #### 2 4321-2 ####[facility] LABCLIA [id number] [place] [address] [place] Sodium [Moles/Vol] 137 mmol/L Normal 136-144 [facility] Comment on above: Order Comment: Speci men Type: BLOOD SPECIMENOrdering Facility: [facility] Address: [address] [place] [address] Performed By: #### 2 4321-2 ####[facility] LABIA [id number] [place] [address] [place] Urea nitrogen [Mass/Vol] 20 mg/dL Normal 9-24 [facility] Comment on above: Order Comment: Speci men Type: BLOOD SPECIMENOrdering Facility: [facility] Address: [address] [place] [address] Performed By: #### 2 4321-2 ####[facility] LABIA [id number] [place] [address] [place] CBC panel Auto (Bld)on 02-13 Erythrocyte distribution width (RBC) [Ratio] 14.8 % Normal 11.5-15.0 [facility] Comment on above: Order Comment: Speci men Type: BLOOD SPECIMENOrdering Facility: [facility] Address: [address] [place] [address] Performed By: #### 5 8410-2 ####[facility] LABIA [id number] [place] [address] [place] Hematocrit (Bld) [Volume fraction] 44.4 % Normal 39.0-51.0 [facility] Comment on above: Order Comment: Speci men Type: BLOOD SPECIMENOrdering Facility: [facility] Address: [address] [place] [address] Performed By: #### 5 8410-2 ####[facility] LABCLIA [id number] [place] [address] [place] Hemoglobin (Bld) [Mass/Vol] 14.9 g/dL Normal 13.0-17.0 [facility] Comment on above: Order Comment: Speci men Type: BLOOD SPECIMENOrdering Facility: [facility] Address: [address] [place] [address] Performed By: #### 5 8410-2 ####[facility] LABIA [id number] [place] [address] [place] MCH (RBC) [Entitic mass] 31.6 pg Normal 26.0-34.0 [facility] Comment on above: Order Comment: Speci men Type: BLOOD SPECIMENOrdering Facility: [facility] Address: [address] [place] [address] Performed By: #### 5 8410-2 ####[facility] LABIA [id number] [place] [address] [place] MCHC (RBC) [Mass/Vol] 33.6 g/dL Normal 30.5-36.0 [facility] Comment on above: Order Comment: Speci men Type: BLOOD SPECIMENOrdering Facility: [facility] Address: [address] [place] [address] Performed By: #### 5 8410-2 ####[facility] LABIA [id number] [place] [address] [place] MCV (RBC) [Entitic vol] 94.3 fL Normal 80.0-100.0 [facility] Comment on above: Order Comment: Speci men Type: BLOOD SPECIMENOrdering Facility: [facility] Address: [address] [place] [address] Performed By: #### 5 8410-2 ####[facility] LABIA [id number] [place] [id number] [place] Nucleated RBC (Bld) [#/Vol] 10*3/uL Normal <0.01 [facility] Comment on above: Order Comment: Speci men Type: BLOOD SPECIMENOrdering Facility: [facility] Address: [address] [place] [address] Performed By: #### 5 8410-2 ####[facility] LABCLIA [id number] [place] [address] [place] Platelet mean volume (Bld) [Entitic vol] 10.0 fL Normal 9.0-12.7 [facility] Comment on above: Order Comment: Speci men Type: BLOOD SPECIMENOrdering Facility: [facility] Address: [address] [place] [address] Performed By: #### 5 8410-2 ####[facility] LABCLIA [id number] [place] [address] [place] Platelets (Bld) [#/Vol] 168 10*3/uL Normal 150-400 [facility] Comment on above: Order Comment: Speci men Type: BLOOD SPECIMENOrdering Facility: [facility] Address: [address] [place] [address] Performed By: #### 5 8410-2 ####[facility] LABCLIA [id number] [place] [address] [place] RBC (Bld) [#/Vol] 4.71 10*6/uL Normal 4.20-6.00 [facility] Comment on above: Order Comment: Speci men Type: BLOOD SPECIMENOrdering Facility: [facility] Address: [address] [place] [address] Performed By: #### 5 8410-2 ####[facility] LABCLIA [id number] [place] [address] [place] WBC (Bld) [#/Vol] 8.33 10*3/uL Normal 3.70-11.00 [facility] Comment on above: Order Comment: Speci men Type: BLOOD SPECIMENOrdering Facility: [facility] Address: [address] [place] [address] Performed By: #### 5 8410-2 ####[facility] LABIA [id number] [place] [address] [place] CNDSon 02-14-2024 CNDS Normal [facility] CONSULTon 02-14-2024 CONSULT Normal [facility] ED NOTEon 02-14-2024 ED NOTE Normal [facility] ED NOTE HNO ID: [id number] Author: CORRIE CHAVEZ RN Service: Emergency Medicine Author Type: Registered Nurse Type: ED Notes Filed: 02/14/2024 11:48 Note Text: Report attempted x1, [employer] requested a call back number and name . Normal [facility] Urinalysis complete panel (U )on 02-14-2024 Bacteria LM.HPF (Urine sed) [#/Area] Negative Normal Negative [facility] Comment on above: Order Comment: Speci men Type: URINE SPECIMENOrdering Facility: [facility] Address: [address] [place] [address] Performed By: #### 2 4356-8 ####[facility] LABIA [id number] [place] [address] [place] Bilirubin Ql (U) Negative Normal Negative [facility] Comment on above: Order Comment: Speci men Type: URINE SPECIMENOrdering Facility: [facility] Address: [address] [place] [address] Performed By: #### 2 4356-8 ####[facility] LABIA [id number] [place] [address] [place] Clarity (Unsp spec) Clear Normal Clear [facility] Comment on above: Order Comment: Speci men Type: URINE SPECIMENOrdering Facility: [facility] Address: [address] [place] [address] Performed By: #### 2 4356-8 ####[facility] LABCLIA [id number] [place] [address] [place] Color (U) Yellow Normal Yellow [facility] Comment on above: Order Comment: Speci men Type: URINE SPECIMENOrdering Facility: [facility] Address: [address] [place] [address] Performed By: #### 2 4356-8 ####[facility] LABCLIA [id number] [place] [address] [place] Epithelial cells LM.HPF (Urine sed) [#/Area] None Seen Normal [facility] Comment on above: Order Comment: Speci men Type: URINE SPECIMENOrdering Facility: [facility] Address: [address] [place] [address] Performed By: #### 2 4356-8 ####[facility] LABCLIA [id number] [place] [address] [place] Glucose Test strip (U) [Mass/Vol] Negative Normal Negative [facility] Comment on above: Order Comment: Speci men Type: URINE SPECIMENOrdering Facility: [facility] Address: [address] [place] [address] Performed By: #### 2 4356-8 ####[facility] LABCLIA [id number] [place] [address] [place] Hemoglobin Ql (U) Negative Normal Negative [facility] Comment on above: Order Comment: Speci men Type: URINE SPECIMENOrdering Facility: [facility] Address: [address] [place] [address] Performed By: #### 2 4356-8 ####[facility] LABCLIA [id number] [place] [address] [place] Hyaline casts (Urine sed) [#/Area] 0 /[LPF] Normal 0 /LPF [facility] Comment on above: Order Comment: Speci men Type: URINE SPECIMENOrdering Facility: [facility] Address: [address] [place] [address] Performed By: #### 2 4356-8 ####[facility] LABCLIA [id number] [place] [address] [place] Ketones Ql (U) Trace Abnormal Negative [facility] Comment on above: Order Comment: Speci men Type: URINE SPECIMENOrdering Facility: [facility] Address: [address] [place] [address] Performed By: #### 2 4356-8 ####[facility] LABCLIA [id number] [place] [address] [place] Leukocyte esterase Test strip Ql (U) 2+ Abnormal Negative [facility] Comment on above: Order Comment: Speci men Type: URINE SPECIMENOrdering Facility: [facility] Address: [address] [place] [address] Performed By: #### 2 4356-8 ####[facility] LABCLIA [id number] [place] [address] [place] Nitrite Ql (U) Negative Normal Negative [facility] Comment on above: Order Comment: Speci men Type: URINE SPECIMENOrdering Facility: [facility] Address: [address] [place] [address] Performed By: #### 2 4356-8 ####[facility] LABCLIA [id number] [place] [address] [place] pH (U) 6.0 [pH] Normal <8.5 [facility] Comment on above: Order Comment: Speci men Type: URINE SPECIMENOrdering Facility: [facility] Address: [address] [place] [address] Performed By: #### 2 4356-8 ####[facility] LABCLIA [id number] [place] [address] [place] Protein (U) [Mass/Vol] Negative Normal Negative [facility] Comment on above: Order Comment: Speci men Type: URINE SPECIMENOrdering Facility: [facility] Address: [address] [place] [address] Performed By: #### 2 4356-8 ####[facility] [id number] [place] [address] [place] RBC LM.HPF (Urine sed) [#/Area] 0-2 /HPF Normal 0-2 /HPF [facility] Comment on above: Order Comment: Speci men Type: URINE SPECIMENOrdering Facility: [facility] Address: [address] [place] [address] Performed By: #### 2 4356-8 ####[facility] [id number] [place] [address] [place] Specific gravity (U) [Rel density] 1.018 Normal 1.005-1.030 [facility] Comment on above: Order Comment: Speci men Type: URINE SPECIMENOrdering Facility: [facility] Address: [address] [place] [address] Performed By: #### 2 4356-8 ####[facility] [id number] [place] [address] [place] Urobilinogen Ql (U) 0.2 EU/dL Normal 0.2-1.0 EU/dL [facility] Comment on above: Order Comment: Speci men Type: URINE SPECIMENOrdering Facility: [facility] Address: [address] [place] [address] Performed By: #### 2 4356-8 ####[facility] [id number] [place] [address] [place] WBC LM.HPF (Urine sed) [#/Area] 0-5 /HPF Normal 0-5 /HPF [facility] Comment on above: Order Comment: Speci men Type: URINE SPECIMENOrdering Facility: [facility] Address: [address] [place] [address] Performed By: #### 2 4356-8 ####[facility] LABCLIA [id number] [place] [address] [place] CBC W Auto Differential pane l (Bld)on 02-13-2024 Basophils (Bld) [#/Vol] 0.06 10*3/uL Normal <0.11 [facility] Comment on above: Order Comment: Speci men Type: BLOOD SPECIMENOrdering Facility: [facility] Address: [address] [place] [address] Performed By: #### 5 7021-8 ####[facility] LABCLIA [id number] [place] [address] [place] Basophils/100 WBC (Bld) 0.6 % Normal [facility] Comment on above: Order Comment: Speci men Type: BLOOD SPECIMENOrdering Facility: [facility] Address: [address] [place] [address] Performed By: #### 5 7021-8 ####[facility] LABCLIA [id number] [place] [address] [place] Differential cell count method Nom (Bld) Auto Normal [facility] Comment on above: Order Comment: Speci men Type: BLOOD SPECIMENOrdering Facility: [facility] Address: [address] [place] [address] Performed By: #### 5 7021-8 ####[facility] LABCLIA [id number] [place] [address] [place] Eosinophils (Bld) [#/Vol] 10*3/uL Normal <0.46 [facility] Comment on above: Order Comment: Speci men Type: BLOOD SPECIMENOrdering Facility: [facility] Address: [address] [place] [address] Performed By: #### 5 7021-8 ####[facility] LABCLIA [id number] [place] [address] [place] Eosinophils/100 WBC (Bld) 0.2 % Normal [facility] Comment on above: Order Comment: Speci men Type: BLOOD SPECIMENOrdering Facility: [facility] Address: [address] [place] [address] Performed By: #### 5 7021-8 ####[facility]CLIA [id number] [place] [address] [place] Erythrocyte distribution width (RBC) [Ratio] 14.6 % Normal 11.5-15.0 [facility] Comment on above: Order Comment: Speci men Type: BLOOD SPECIMENOrdering Facility: [facility] Address: [address] [place] [address] Performed By: #### 5 7021-8 ####[facility] LABIA [id number] [place] [address] [place] Hematocrit (Bld) [Volume fraction] 47.0 % Normal 39.0-51.0 [facility] Comment on above: Order Comment: Speci men Type: BLOOD SPECIMENOrdering Facility: [facility] Address: [address] [place] [address] Performed By: #### 5 7021-8 ####[facility] LABIA [id number] [place] [address] [place] Hemoglobin (Bld) [Mass/Vol] 16.5 g/dL Normal 13.0-17.0 [facility] Comment on above: Order Comment: Speci men Type: BLOOD SPECIMENOrdering Facility: [facility] Address: [address] [place] [address] Performed By: #### 5 7021-8 ####[facility] LABIA [id number] [place] [address] [place] Immature granulocytes (Bld) [#/Vol] 0.03 10*3/uL Normal <0.10 [facility] Comment on above: Order Comment: Speci men Type: BLOOD SPECIMENOrdering Facility: [facility] Address: [address] [place] [address] Performed By: #### 5 7021-8 ####[facility]CLIA [id number] [place] [address] [place] Immature granulocytes/100 WBC (Bld) 0.3 % Normal [facility] Comment on above: Order Comment: Speci men Type: BLOOD SPECIMENOrdering Facility: [facility] Address: [address] [place] [address] Performed By: #### 5 7021-8 ####[facility] LABCLIA [id number] [place] [address] [place] Lymphocytes (Bld) [#/Vol] 1.31 10*3/uL Normal 1.00-4.00 [facility] Comment on above: Order Comment: Speci men Type: BLOOD SPECIMENOrdering Facility: [facility] Address: [address] [place] [address] Performed By: #### 5 7021-8 ####[facility] LABCLIA [id number] [place] [address] [place] Lymphocytes/100 WBC (Bld) 13.9 % Normal [facility] Comment on above: Order Comment: Speci men Type: BLOOD SPECIMENOrdering Facility: [facility] Address: [address] [place] [address] Performed By: #### 5 7021-8 ####[facility] LABCLIA [id number] [place] [address] [place] MCH (RBC) [Entitic mass] 32.2 pg Normal 26.0-34.0 [facility] Comment on above: Order Comment: Speci men Type: BLOOD SPECIMENOrdering Facility: [facility] Address: [address] [place] [address] Performed By: #### 5 7021-8 ####[facility] LABCLIA [id number] [place] [address] [place] MCHC (RBC) [Mass/Vol] 35.1 g/dL Normal 30.5-36.0 [facility] Comment on above: Order Comment: Speci men Type: BLOOD SPECIMENOrdering Facility: [facility] Address: [address] [place] [address] Performed By: #### 5 7021-8 ####[facility] LABCLIA [id number] [place] [address] [place] MCV (RBC) [Entitic vol] 91.8 fL Normal 80.0-100.0 [facility] Comment on above: Order Comment: Speci men Type: BLOOD SPECIMENOrdering Facility: [facility] Address: [address] [place] [address] Performed By: #### 5 7021-8 ####[facility] LABCLIA [id number] [place] [address] [place] Monocytes (Bld) [#/Vol] 0.62 10*3/uL Normal <0.87 [facility] Comment on above: Order Comment: Speci men Type: BLOOD SPECIMENOrdering Facility: [facility] Address: [address] [place] [address] Performed By: #### 5 7021-8 ####[facility] LABCLIA [id number] [place] [address] [place] Monocytes/100 WBC (Bld) 6.6 % Normal [facility] Comment on above: Order Comment: Speci men Type: BLOOD SPECIMENOrdering Facility: [facility] Address: [address] [place] [address] Performed By: #### 5 7021-8 ####[facility] LABCLIA [id number] [place] [address] [place] Neutrophils (Bld) [#/Vol] 7.39 10*3/uL Normal 1.45-7.50 [facility] Comment on above: Order Comment: Speci men Type: BLOOD SPECIMENOrdering Facility: [facility] Address: [address] [place] [address] Performed By: #### 5 7021-8 ####[facility] LABCLIA [id number] [place] [address] [place] Neutrophils/100 WBC (Bld) 78.4 % Normal [facility] Comment on above: Order Comment: Speci men Type: BLOOD SPECIMENOrdering Facility: [facility] Address: [address] [place] [address] Performed By: #### 5 7021-8 ####[facility] LABIA [id number] [place] [address] [place] Nucleated RBC (Bld) [#/Vol] 10*3/uL Normal <0.01 [facility] Comment on above: Order Comment: Speci men Type: BLOOD SPECIMENOrdering Facility: [facility] Address: [address] [place] [address] Performed By: #### 5 7021-8 ####[facility] LABIA [id number] [place] [address] [place] Nucleated RBC/100 WBC (Bld) [Ratio] 0.0 /100 WBC Normal [facility] Comment on above: Order Comment: Speci men Type: BLOOD SPECIMENOrdering Facility: [facility] Address: [address] [place] [address] Performed By: #### 5 7021-8 ####[facility] LABIA [id number] [place] [address] [place] Platelet mean volume (Bld) [Entitic vol] 9.9 fL Normal 9.0-12.7 [facility] Comment on above: Order Comment: Speci men Type: BLOOD SPECIMENOrdering Facility: [facility] Address: [address] [place] [address] Performed By: #### 5 7021-8 ####[facility] LABCLIA [id number] [place] [address] [place] Platelets (Bld) [#/Vol] 204 10*3/uL Normal 150-400 [facility] Comment on above: Order Comment: Speci men Type: BLOOD SPECIMENOrdering Facility: [facility] Address: [address] [place] [address] Performed By: #### 5 7021-8 ####[facility] LABCLIA [id number] [place] [address] [place] RBC (Bld) [#/Vol] 5.12 10*6/uL Normal 4.20-6.00 [facility] Comment on above: Order Comment: Speci men Type: BLOOD SPECIMENOrdering Facility: [facility] Address: [address] [place] [address] Performed By: #### 5 7021-8 ####[facility] LABCLIA [id number] [place] [address] [place] WBC (Bld) [#/Vol] 9.43 10*3/uL Normal 3.70-11.00 [facility] Comment on above: Order Comment: Speci men Type: BLOOD SPECIMENOrdering Facility: [facility] Address: [address] [place] [address] Performed By: #### 5 7021-8 ####[facility] LABCLIA [id number] [place] [address] [place] ABD/PEL W IVCONon 024 CT ABD/PEL W IVCON Normal [facility] Comprehensive metabolic 2000 panelon 02-13-2024 Albumin [Mass/Vol] 4.1 g/dL Normal 3.9-4.9 [facility] Comment on above: Order Comment: Speci men Type: BLOOD SPECIMENOrdering Facility: [facility] Address: [address] [place] [address] Performed By: #### 3 040-3, 59404-9 ####[facility] LABCLIA [id number] [place] [address] [place] ALP [Catalytic activity/Vol] 93 U/L Normal 38-113 [facility] Comment on above: Order Comment: Speci men Type: BLOOD SPECIMENOrdering Facility: [facility] Address: [address] [place] [address] Performed By: #### 3 040-3, 11022-8 ####[facility] LABCLIA [id number] [place] [address] [place] ALT [Catalytic activity/Vol] 14 U/L Normal 10-54 [facility] Comment on above: Order Comment: Speci men Type: BLOOD SPECIMENOrdering Facility: [facility] Address: [address] [place] [address] Performed By: #### 3 040-3, 26658-6 ####[facility] LABCLIA [id number] [place] [address] [place] Anion gap [Moles/Vol] 13 mmol/L Normal 8-15 [facility] Comment on above: Order Comment: Speci men Type: BLOOD SPECIMENOrdering Facility: [facility] Address: [address] [place] [address] Performed By: #### 3 040-3, 68718-8 ####[facility] LABCLIA [id number] [place] [address] [place] AST [Catalytic activity/Vol] 13 U/L Low 14-40 [facility] Comment on above: Order Comment: Speci men Type: BLOOD SPECIMENOrdering Facility: [facility] Address: [address] [place] [address] Performed By: #### 3 040-3, 55440-1 ####[facility] LABCLIA [id number] [place] [address] [place] Bilirubin [Mass/Vol] 0.9 mg/dL Normal 0.2-1.3 [facility] Comment on above: Order Comment: Speci men Type: BLOOD SPECIMENOrdering Facility: [facility] Address: [address] [id number] Performed By: #### 3 -3, ####[facility] LABCLIA [id number] [address] [address] [place] Calcium [Mass/Vol] 9.6 mg/dL Normal 8.5-10.2 [facility] Comment on above: Order Comment: Speci men Type: BLOOD SPECIMENOrdering Facility: [facility] Address: [address] [place] [address] Performed By: #### 3 -3, ####[facility] LABCLIA [id number] [place] [address] [place] Chloride [Moles/Vol] 101 mmol/L Normal 98-107 [facility] Comment on above: Order Comment: Speci men Type: BLOOD SPECIMENOrdering Facility: [facility] Address: [address] [place] [address] Performed By: #### 3 3, ####[facility] LABCLIA [id number] [place] [address] [place] CO2 [Moles/Vol] 19 mmol/L Low 22-30 [facility] Comment on above: Order Comment: Speci men Type: BLOOD SPECIMENOrdering Facility: [facility] Address: [address] [place], [place] [address] Performed By: #### 3 -3, ####[facility] LABCLIA [id number] [place] [address] [place] Creatinine [Mass/Vol] 0.82 mg/dL Normal 0.73-1.22 [facility] Comment on above: Order Comment: Speci men Type: BLOOD SPECIMENOrdering Facility: [facility] Address: [address] [place], [place] [address] Performed By: #### 3 -3, 39772-3 ####[facility] LABCLIA [id number] [place] [address] [place] Creatinine and Glomerular filtration rate.predicted panel (S/P/Bld) 87 mL/min/1.73m??? Normal >=60 [facility] Comment on above: Order Comment: Stan jiménez Type: BLOOD SPECIMENOrdering Facility: [facility] Address: [address] [place] [address] Result Comment: Sun mated Glomerular Filtration Rate (eGFR) is calculated using the 2020 CKD-EPI creatinine equation. This equation utilizes serum creatinine, sex, and age as parameters. The creatinine assay has traceable calibration to isotope dilution-mass spectrometry. Refer to KDIGO guidelines for clinical interpretation. In patients with unstable renal function, e.g. those with acute kidney injury, the eGFR may not accurately reflect actual GFR. Performed By: #### 3 040-3, 48564-2 ####[facility] LABIA [id number] [place] [address] [place] Glucose [Mass/Vol] 155 mg/dL High 74-99 [facility] Comment on above: Order Comment: Stan jiménez Type: BLOOD SPECIMENOrdering Facility: [facility] Address: [address] [place] [address] Result Comment: The [place] [employer] (ADA) provides guidance for cutoff values for fasting glucose and random glucose. The ADA defines fasting as no caloric intake for at least 8 hours. Fasting plasma glucose results between 100 to 125 mg/dL indicate increased risk for diabetes (prediabetes).Fasting plasma glucose results greater than or equal to 126 mg/dL meet the criteria for diagnosis of diabetes. In the absence of unequivocal hyperglycemia, results should be confirmed by repeat testing. In a patient with classic symptoms of hyperglycemia or hyperglycemic crisis, random plasma glucose results greater than or equal to 200 mg/dL meet the criteria for diagnosis of diabetes.Reference: Standards of Medical Care in Diabetes 2016, [place] [employer]. Diabetes Care. 2016.39(Suppl 1). Performed By: #### 3 040-3, 80082-5 ####[facility] LABCLIA [id number] [place] [address] [place] Potassium [Moles/Vol] 4.5 mmol/L Normal 3.7-5.1 [facility] Comment on above: Order Comment: Speci men Type: BLOOD SPECIMENOrdering Facility: [facility] Address: [address] [place] [address] Performed By: #### 3 040-3, 69826-5 ####[facility] LABCLIA [id number] [place] [address] [place] Protein [Mass/Vol] 6.7 g/dL Normal 6.3-8.0 [facility] Comment on above: Order Comment: Speci men Type: BLOOD SPECIMENOrdering Facility: [facility] Address: [address] [place] [address] Performed By: #### 3 040-3, 25224-6 ####[facility] LABCLIA [id number] [place] [address] [place] Sodium [Moles/Vol] 133 mmol/L Low 136-144 [facility] Comment on above: Order Comment: Speci men Type: BLOOD SPECIMENOrdering Facility: [facility] Address: [address] [place] [address] Performed By: #### 3 040-3, 64940-8 ####[facility] LABCLIA [id number] [place] [address] [place] Urea nitrogen [Mass/Vol] 21 mg/dL Normal 9-24 [facility] Comment on above: Order Comment: Speci men Type: BLOOD SPECIMENOrdering Facility: [facility] Address: [address] [place] [address] Performed By: #### 3 040-3, 43207-0 ####[facility] LABCLIA [id number] [place] [id number] [place] ED NOTEon 02-13-2024 ED NOTE Normal [facility] ED PROV NOTEon 02-13-2024 ED PROV NOTE Normal [facility] ED Triage Noteon 02-13-2024 ED Triage Note Normal [facility] HISTORY PHYSICALon HISTORY PHYSICAL [facility] Lipase SerPl-cCncon 02-13-20 Lipase [Catalytic activity/Vol] 23 U/L Normal 16-61 [facility] Comment on above: Order Comment: Speci men Type: BLOOD SPECIMENOrdering Facility: [facility] Address: [address] [place] [address] Performed By: #### 3 040-3, 24675-0 ####[facility] LABCLIA [id number] [facility] [place] [address] [place] XR CHEST 1V FRONTAL PORTon 0 02-13-2024 XR CHEST 1V FRONTAL PORT Normal [facility] CNOVon 02-10-2024 CNOV Normal [facility] Abdomen/Pelvis W IV Cont ONL Yon 02-04-2024 Abdomen/Pelvis W IV Cont ONLY [facility] Imaging Services [address] [place], [place] [address] Abdomen/Pelvis W IV Cont ONLY MR#: [id number] Acct: [id number] Name: APRIL QUESADA Rep #: [id number] : 1940 M 83 From: Michael Mcmahon MD PCP: Dr. Enrrique Carmona MD Status: REG ER Study: Abdomen/Pelvis W IV Cont ONLY Date of Exam: Exam# [id number] Ordering Dr: Isaac Parsons DO 1:[id number] EXAM: CT ABDOMEN AND PELVIS WITH INTRAVENOUS CONTRAST CLINICAL INDICATION: hx of adrenal tumor TECHNIQUE: Helically acquired images were obtained of the abdomen and pelvis with intravenous contrast. This CT exam was performed using one or more of the following dose reduction techniques: automated exposure control, adjustment of the mA and/or kV according to patient size, and/or use of iterative reconstruction technique. CONTRAST: IV 100mL Isovue-300 COMPARISON: No relevant prior studies available. FINDINGS: LOWER THORAX: There are ashr-dv-ykqrmatr coronary artery calcifications present. Lung bases are clear. No cardiomegaly. No significant pericardial effusion. ABDOMEN: LIVER: Unremarkable. Homogeneous. No focal mass. GALLBLADDER AND BILE DUCTS: Unremarkable. No calcified gallstones. No gallbladder distention or wall edema. No intra- or extrahepatic biliary ductal dilation. PANCREAS: Unremarkable. No focal cystic or solid mass. SPLEEN: Unremarkable. Normal size without focal cystic or solid mass. ADRENALS: There is a 21.9 x 16.6 x 20.6 cm low-density mass in the left upper quadrant. This appears to be primarily cystic although there does appear to be solid component within the periphery as well as calcifications appears to be a large left adrenal mass. If no history of malignancy, consider surgical resection. Otherwise, consider PET-CT or biopsy. Also consider preoperative biochemical assays to determine functional status and exclude pheochromocytoma. KIDNEYS AND URETERS: There are low-density masses in both kidneys compatible with simple cysts. No follow-up imaging is necessary. No hydronephrosis. STOMACH AND BOWEL: There is sigmoid diverticulosis with no evidence of diverticulitis. No stomach or bowel distention. PELVIS: APPENDIX: No evidence of acute appendicitis. BLADDER: Unremarkable. REPRODUCTIVE: Unremarkable as visualized. No mass. ABDOMEN and PELVIS: INTRAPERITONEAL SPACE: Unremarkable. No ascites or other fluid collection. No free air. BONES/JOINTS: Unremarkable. No suspicious lytic or blastic abnormality. SOFT TISSUES: Unremarkable. No discrete abdominal or pelvic wall hernia. VASCULATURE: See above. LYMPH NODES: Unremarkable. No enlarged lymph nodes. CT/Abdomen/Pelvis W IV Cont ONLY IMPRESSION: Large predominantly low density mass centrally with soft tissue calcifications peripherally in the left upper quadrant which appears to represent a large adrenal mass. Further evaluation with PET CT scan or MRI may be beneficial. No other abnormalities are identified. Electronically Signed: Michael Mcmahon MD at 22:53 EDT , CC: Dr. Isaac Parsons DO; Dr. Enrrique Carmona MD Field Project Manager: Signed Normal [facility] Brain/Head without Contrasto n 02-04-2024 Brain/Head without Contrast [facility] Imaging Services [address] [place] [address] Brain/Head without Contrast MR#: [id number] Acct: [id number] Name: APRIL QUESADA Rep #: [id number] : 1940 M 83 From: Michael Mcmahon MD PCP: Dr. Enrrique Carmona MD Status: REG ER Study: Brain/Head without Contrast Date of Exam: 01/21 10/14 Exam# [id number] Ordering Dr: Isaac Parsons DO 4:[id number] EXAM: CT HEAD WITHOUT INTRAVENOUS CONTRAST CLINICAL INDICATION: ams TECHNIQUE: Multiple axial images were obtained of the head without intravenous contrast. This CT exam was performed using one or more of the following dose reduction techniques: automated exposure control, adjustment of the mA and/or kV according to patient size, and/or use of iterative reconstruction technique. COMPARISON: No relevant prior studies available. FINDINGS: BRAIN AND EXTRA-AXIAL SPACES: Unremarkable. No intra- or extra-axial hemorrhage. No evidence of acute infarct. No intracranial mass or mass effect. There is preservation of the vera/white matter interface. Posterior fossa structures are unremarkable. Ventricles are appropriate for age. No hydrocephalus. Basal cisterns are patent. BONES/JOINTS: Unremarkable. No discrete lytic or blastic abnormalities. SINUSES: Unremarkable as visualized. Clear. MASTOID AIR CELLS: Unremarkable. Clear. ORBITS: Visualized globes, extraocular muscles, optic nerves and retrobulbar fat appear unremarkable. CT/Brain/Head without Contrast IMPRESSION: Negative head/brain CT without intravenous contrast. Electronically Signed: Michael Mcmahon MD at 22:54 EDT , CC: Dr. Isaac Parsons DO; Dr. Enrrique Carmona MD Field Project Manager: Signed [facility] CBC W/Diff, Automatedon 01-21 SMEAR COMMENT SCANNED Normal [facility] Comment on above: Performed By: #### L 100.0100, L500.4050, L501.2450 #### [facility] Laboratory [address] [place], [address] Chest 1 View (Portable)on Chest 1 View (Portable) [facility] Imaging Services [address] [place] [address] Chest 1 View (Portable) MR#: [id number] Acct: [id number] Name: APRIL QUESADA Rep #: [id number] : 1940 M 83 From: Michael Mcmahon MD PCP: Dr. Enrrique Carmona MD Status: REG ER Study: Chest 1 View (Portable) Date of Exam: 02/04/24 Exam# [id number] Ordering Dr: Isaac Parsons DO [id number] EXAM: XR CHEST, 1 VIEW CLINICAL INDICATION: ams TECHNIQUE: Frontal view of the chest. COMPARISON: 12/03/2023 FINDINGS: LUNGS AND PLEURAL SPACES: Unremarkable. No consolidation or edema. No pneumothorax. No effusion. HEART: Unremarkable. Cardiac silhouette not enlarged. MEDIASTINUM: Central airways and mediastinal contour are unremarkable. BONES/JOINTS: Unremarkable. No acute fracture. SOFT TISSUES: Unremarkable. RAD/Chest 1 View (Portable) IMPRESSION: No radiographic evidence of acute cardiopulmonary disease. Electronically Signed: Michael Mcmahon MD at 22:49 EDT , CC: Dr. Isaac Parsons DO; Dr. Enrrique Carmona MD Field Project Manager: Signed Normal [facility] Comprehensive Metabolic Prof vaon 02-04-2024 Albumin [Mass/Vol] 3.6 g/dL Normal 3.2-5.0 [facility] Comment on above: Performed By: #### L 100.0100, L500.4050, L501.2450 #### [facility] Laboratory [address] [place], [address] Albumin/Globulin [Mass ratio] 1.0 {ratio} Normal 0.9-2.4 [facility] Comment on above: Performed By: #### L 100.0100, L500.4050, L501.2450 #### [facility] Laboratory [address] [place], [address] ALK P 98 U/L Normal 45-117 [facility] Comment on above: Performed By: #### L 100.0100, L500.4050, L501.2450 #### [facility] [address] [place], [address] ALT [Catalytic activity/Vol] 20 U/L Normal 16-61 [facility] Comment on above: Performed By: #### L 100.0100, L500.4050, L501.2450 #### [facility] [address] [place], [address] AST [Catalytic activity/Vol] 14 U/L Low 15-37 [facility] Comment on above: Performed By: #### L 100.0100, L500.4050, L501.2450 #### [facility] Laboratory [address] [place], [address] Bilirubin [Mass/Vol] 0.70 mg/dL Normal 0.20-1.00 [facility] Comment on above: Result Comment: For patients on eltrombopag therapy, use of Dimension [place] TBIL is not recommended. Performed By: #### L 100.0100, L500.4050, L501.2450 #### [facility] Laboratory [address] [place], [address] BUN/CRE 15.5 RATIO Normal 10-20 [facility] Comment on above: Performed By: #### L 100.0100, L500.4050, L501.2450 #### [facility] Laboratory [address] [place], [address] CA,Total 9.9 mg/dL Normal 8.5-10.1 [facility] Comment on above: Performed By: #### L 100.0100, L500.4050, L501.2450 #### [facility] Laboratory [address] [place], [address] Chloride [Moles/Vol] 106 mmol/L Normal 98-107 [facility] Comment on above: Performed By: #### L 100.0100, L500.4050, L501.2450 #### [facility] Laboratory [address] [place], [address] CO2 [Moles/Vol] 21.0 mmol/L Normal 21.0-32.0 [facility] Comment on above: Performed By: #### L 100.0100, L500.4050, L501.2450 #### [facility] [address] [place], [address] Creatinine [Mass/Vol] 0.84 mg/dL Normal 0.70-1.30 [facility] Comment on above: Result Comment: The validity of the calculated GFR GFRAA in patients over 70 years has not been determined. Clinical correlation is essential. Performed By: #### L 100.0100, L500.4050, L501.2450 #### [facility] [address] [place], [address] ECRCL 68.67 ml/min Normal [facility] Comment on above: Performed By: #### L 100.0100, L500.4050, L501.2450 #### [facility] [address] [place], [address] EST GFR - AA 112 mL/min Normal >60 [facility] Comment on above: Result Comment: Afri can Wallisian GFR Calc Performed By: #### L 100.0100, L500.4050, L501.2450 #### [facility] [address] [place], [address] GAP 10 Normal 5-15 [facility] Comment on above: Performed By: #### L 100.0100, L500.4050, L501.2450 #### [facility] [address] [place], [address] GFR/1.73 sq M.predicted among non-blacks MDRD (S/P/Bld) [Vol rate/Area] 92 mL/min/{1.73_m2} Normal >60 [facility] Comment on above: Result Comment: Non- GFR Calc Performed By: #### L 100.0100, L500.4050, L501.2450 #### [facility] Laboratory [address] [place], [address] Globulin (S) [Mass/Vol] 3.7 g/dL Normal 2.2-4.2 [facility] Comment on above: Performed By: #### L 100.0100, L500.4050, L501.2450 #### [facility] Laboratory [address] [place], [address] Glucose [Mass/Vol] 146 mg/dL High 74-106 [facility] Comment on above: Result Comment: Fast ing Glucose result greater than or equal to 126 mg/dL suggests DIABETES MELLITUS per A.D.A. criteria. Performed By: #### L 100.0100, L500.4050, L501.2450 #### [facility] [address] [place], [address] Potassium [Moles/Vol] 4.0 mmol/L Normal 3.5-5.1 [facility] Comment on above: Performed By: #### L 100.0100, L500.4050, L501.2450 #### [facility] Laboratory [address] [place], [address] Sodium [Moles/Vol] 137 mmol/L Normal 136-145 [facility] Comment on above: Performed By: #### L 100.0100, L500.4050, L501.2450 #### [facility] [address] [place], [address] T PROT 7.3 g/dL Normal 6.4-8.2 [facility] Comment on above: Performed By: #### L 100.0100, L500.4050, L501.2450 #### [facility] Laboratory [address] [place], [address] Urea nitrogen [Mass/Vol] 13 mg/dL Normal 7-18 [facility] Comment on above: Performed By: #### L 100.0100, L500.4050, L501.2450 #### [facility] Laboratory [address] [place], [address] Emergency Department Summary on 02-04-2024 Emergency Department Summary [facility] Medical Records Department [address] [place] [address] Emergency Department Summary 02/04/24 MR#: [id number] Acct: [id number] Name: APRIL QUESADA Rep #: [id number] : 1940 83 From: Isaac Parsons DO PCP: Dr. Enrrique Carmona MD Status:REG ER Location: ED HPI History of Present Illness Chief Complaint: Mental Health Narrative Narrative: Patient is a 83-year-old male past medical history anxiety, depression, type 2 diabetes, hyperlipidemia,, atrial fibrillation on Xarelto adrenal mass who presents to the emergency department with a chief complaint of depression and suicidal ideations. According to the crisis individual that evaluated him prior to having EMS have him brought here she states that he has a known adrenal mass and scheduled to have a surgery noted in approximately 4 weeks. She notes that he recently lost his approximately 2 weeks ago and ever since then states that he has been very depressed. According to her they noted that the patient did have guns in the house and the children notified her that he asked them to take the guns out of the house. When asked patient about this he states that he had friends that had weapons in the house in the past and had shot himself so he did not want to even have any thoughts of this. Patient according to the daughter at bedside had now for approximately 2 weeks straight had made various comments about dying and wanting to be with his . 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 [facility] Medical History Essential hypertension Depression Anxiety BPH w urinary obs/LUTS Rosacea Type 2 diabetes mellitus without complications Hyperlipidemia Obesity Bilateral carotid artery stenosis Persistent atrial fibrillation Home Medications ???Medication ???Instructions ???Recorded ???Last Taken ???Type clonidine HCl 0.1 mg tablet 0.1 mg PO DAILY 11/29/16 02/12/17 History lisinopril 40 mg tablet 40 mg PO DAILY 11/29/16 02/12/17 History lorazepam 0.5 mg tablet 0.5 mg PO DAILY PRN PRN Anxiety 01/13/17 Unknown History allopurinol 100 mg tablet 100 mg PO DAILY 03/31/22 Unknown History amlodipine 10 mg tablet 5 mg PO DAILY 12/03/23 Unknown History aspirin 81 mg tablet,delayed 325 mg PO .2/weekly 12/03/23 Unknown History release (Adult Aspirin Regimen) fluticasone propionate 50 1 spray intranasal DAILY 12/03/23 Unknown History mcg/actuation nasal spray,suspension (Flonase Allergy Relief) furosemide 20 mg tablet 20 mg PO DAILY #30 tabs 12/03/23 Unknown Rx indomethacin 50 mg capsule 50 mg PO ONCE 12/03/23 Unknown History metformin 500 mg tablet 500 mg PO DAILY 12/03/23 Unknown History rivaroxaban 20 mg tablet (Xarelto) 20 mg PO QDAY #30 tabs 12/10/23 Unknown Rx Allergy/AdvReac Type Severity Reaction Status Date / Time Cephalosporins Allergy Rash Verified 02/04/24 20:08 doxycycline Allergy Rash Verified 02/04/24 20:08 simvastatin (From Zocor) AdvReac Intermediate Myalgias Verified 02/04/24 20:08 Family History Daughter Atrial tachycardia RFA Brother CAD (coronary artery disease) Surgical History H/O left knee surgery History of tonsillectomy and adenoidectomy History of cardioversion (02/12/17) History of left heart catheterization (01/16/17) Social History household members: spouse Smoking Status: Former smoker how long ago did patient quit smokin years ago alcohol intake: never substance use type: does not use caffeine: Yes Type: coffee Number of servings: 2 ROS ROS ED ROS Narrative Constitutional: Denies headaches, Melvin, it is, fevers, chills Eyes: Denies double vision blurry vision change in vision Cardiovascular: Denies chest pain or palpitations Respiratory: Denies coughing wheezing shortness of breath Abdomen: Complains of early satiety, states that 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 Normal [facility] Lipaseon 02-04-2024 Lipase [Catalytic activity/Vol] 35 U/L Normal 13-75 [facility] Comment on above: Result Comment: Jazmine esquivel note: LIPASE revised reference range effective 22. New Lipase methodology. Expected to produce lower values than the previous assay method. NEW Reference Range: 13 - 75 U/L Performed By: #### L 100.0100, L500.4050, L501.2450 #### [facility] Laboratory [address] [place], [address] Urinalysis, Completeon 02-03 BACTERIA RARE Normal None Seen [facility] Comment on above: Order Comment: CLEAN CATCH Performed By: #### L 400.0001 #### [facility] Laboratory [address] [place], [address] RBC 0-5 SEEN Normal 0-5 [facility] Comment on above: Order Comment: CLEAN CATCH Performed By: #### L 400.0001 #### [facility] Laboratory [address] [place], [address] WBC 0-5 SEEN Normal 0-5 [facility] Comment on above: Order Comment: CLEAN CATCH Performed By: #### L 400.0001 #### [facility] Laboratory [address] [place], [address] EPI,SQUAMOUS 0 SEEN Normal 0-5 [facility] Comment on above: Order Comment: CLEAN CATCH Performed By: #### L 400.0001 #### [facility] [address] [place], [address] Mucus Ql (Urine sed) 0 SEEN Normal [facility] Comment on above: Order Comment: CLEAN CATCH Performed By: #### L 400.0001 #### [facility] Laboratory [address] [place] [place], [address] CNOVon 01-23-2024 CNOV Normal [facility] Aldost 24h Ur-mRateon 2023 Aldosterone (24H U) [Mass/Time] 7.2 ug/24hr Normal 3.0-<28.1 [facility] Comment on above: Order Comment: Speci men Type: URINE SPECIMENOrdering Facility: [facility] Address: [address] [place] [address] Performed By: #### 1 765-7 ####[facility] LABCLIA [id number] [facility] [id number] [address] [place] PERIOD (HRS) 24 hr Normal [facility] Comment on above: Order Comment: Speci men Type: URINE SPECIMENOrdering Facility: [facility] Address: [address] [place] [address] Performed By: #### 1 765-7 ####[facility] LABCLIA [id number] [address] Performed By: #### U METAN ####[facility] LABCLIA [id number] [address] [place] Specimen volume (24H U) 1.65 L Normal [facility] Comment on above: Order Comment: Speci men Type: URINE SPECIMENOrdering Facility: [facility] Address: [address] [place] [address] Performed By: #### 1 765-7 ####[facility] LABCLIA [id number] [address] Performed By: #### U METAN ####[facility] LABCLIA [id number] [address] OF [place] CATECHOLAMINES FRACTIONATED, URINE FREEon 01-19-2024 CATECHOLAMINES INTERPRETATION See Note Normal [facility] Comment on above: Order Comment: Speci men Type: URINE SPECIMENOrdering Facility: [facility] Address: [address] [place] [address] Result Comment: TEST INFORMATION: Catecholamines Fractionated, Urine FreeSmaller increases in catecholamine concentrations (less than twotimes the upper limit) usually are the result of physiologicalstimuli, drugs, or improper specimen collection. Significantelevation of one or more catecholamines (three or more times theupper reference limit) is associated with an increased probabilityof a neuroendocrine tumor.Access complete set of age- and/or gender-specific referenceintervals for this test in the [employer] Test Directory([facility]).This test was developed and its performance characteristicsdetermined by [facility]. It has not been cleared orapproved by the [place] Food and Drug Administration. This test wasperformed in a CLIA certified laboratory and is intended forclinical purposes. Performed By: #### U RCAT2 ####[facility] [id number] [place] [address] DOPAMINE, UR 24HR 117 ug/d Normal 71-485 [facility] Comment on above: Order Comment: Speci men Type: URINE SPECIMENOrdering Facility: [facility] Address: [address] [place] [address] Result Comment: REFE RENCE INTERVAL: Dopamine, Urine - ug/dAccess complete set of age- and/or gender-specific referenceintervals for this test in the [employer] Test Directory([facility]). Performed By: #### U RCAT2 ####[facility]IA [id number] [place] [address] DOPAMINE, UR PER VOL 71 ug/L Normal [facility] Comment on above: Order Comment: Speci men Type: URINE SPECIMENOrdering Facility: [facility] Address: [address] [place] [address] Performed By: #### U RCAT2 ####[facility]ORATORIESCLIA [id number] [place] [address] DOPAMINE, UR RATIO TO ECHOCARDIOGRAPH TECH 92 ug/g ECHOCARDIOGRAPH TECH Normal 0-250 [facility] Comment on above: Order Comment: Speci men Type: URINE SPECIMENOrdering Facility: [facility] Address: [address] [place] [address] Performed By: #### U RCAT2 ####[facility] LABORATORIESCLIA [id number] [place] [address] EPINEPHRINE, UR 24HR 5 ug/d Normal 1-14 [facility] Comment on above: Order Comment: Speci men Type: URINE SPECIMENOrdering Facility: [facility] Address: [address] [place] [address] Result Comment: REFE RENCE INTERVAL: Epinephrine, Urine - ug/dAccess complete set of age- and/or gender-specific referenceintervals for this test in the [facility] Test Directory([facility]). Performed By: #### U RCAT2 ####[facility]CLIA [id number] [place] [address] EPINEPHRINE, UR PER VOL 3 ug/L Normal [facility] Comment on above: Order Comment: Speci men Type: URINE SPECIMENOrdering Facility: [facility] Address: [address] [place] [address] Performed By: #### U RCAT2 ####[facility]IESCLIA [id number] [place] [address] EPINEPHRINE, UR RATIO TO ECHOCARDIOGRAPH TECH 4 ug/g ECHOCARDIOGRAPH TECH Normal 0-20 [facility] Comment on above: Order Comment: Speci men Type: URINE SPECIMENOrdering Facility: [facility] Address: [address] [place] [address] Performed By: #### U RCAT2 ####[facility]IESCLIA [id number] [place] [address] NOREPINEPHRINE, UR 24HR 56 ug/d Normal 14-120 [facility] Comment on above: Order Comment: Speci men Type: URINE SPECIMENOrdering Facility: [facility] Address: [address] [place] [address] Result Comment: REFE RENCE INTERVAL: Norepinephrine, Urine - ug/dAccess complete set of age- and/or gender-specific referenceintervals for this test in the [facility] Test Directory([facility]). Performed By: #### U RCAT2 ####[facility]IESCLIA [id number] [place] [address] NOREPINEPHRINE, UR PER VOL 34 ug/L Normal [facility] Comment on above: Order Comment: Speci men Type: URINE SPECIMENOrdering Facility: [facility] Address: [address] [place] [address] Performed By: #### U RCAT2 ####[facility]CLIA [id number] [place] [address] NOREPINEPHRINE, UR RATIO TO ECHOCARDIOGRAPH TECH 44 ug/g ECHOCARDIOGRAPH TECH Normal 0-45 [facility] Comment on above: Order Comment: Speci men Type: URINE SPECIMENOrdering Facility: [facility] Address: [address] [place] [address] Performed By: #### U RCAT2 ####[facility]IESCLIA [id number] [place] [address] CREATINE 24 HR URon 01-19-20 24 CREATINE, UR PER 24 HR (UCRT24) 19 mg/24h Normal [facility] Comment on above: Order Comment: Speci men Type: URINE SPECIMENOrdering Facility: [facility] Address: [address] [place] [address] Result Comment: INTE RPRETIVE INFORMATION: Creatine UrineFor random or timed specimens other than 24 hrs, the resultrepresents the total milligrams of creatine excreted during thecollection period.Reference ranges for creatine have been established for randomurine collections, in mmol/mol creatinine.Access complete set of age- and/or gender-specific referenceintervals for this test in the [facility] [facility] Test Directory([facility]).Performed By: [facility] [place], [place] [id number] Director: Matt Harris MD, PhDCLIA Number: [id number] Performed By: #### U CRT24 ####[facility] [id number] [place] [address] CREATINE, URINE 16 mmol/mol ECHOCARDIOGRAPH TECH Normal 10-370 [facility] Comment on above: Order Comment: Speci men Type: URINE SPECIMENOrdering Facility: [facility] Address: [address] [place] [address] Result Comment: This test was developed and its performance characteristicsdetermined by [facility]. It has not been cleared orapproved by the [place] Food and Drug Administration. This test wasperformed in a CLIA certified laboratory and is intended forclinical purposes. Performed By: #### U CRT24 ####[facility] ByteShieldCLIA [id number] [place] [address] CREATININE, UR (UCRT24) 5607.0 umol/L Normal [facility] Comment on above: Order Comment: Speci men Type: URINE SPECIMENOrdering Facility: [facility] Address: [address] [place] [address] Performed By: #### U CRT24 ####[facility]CL[facility] [id number] [place] [address] METANEPHRINES 24H URon 01-18 Metanephrines (24H U) [Mass/Time] 361 ug/24 hr Normal 140-785 [facility] Comment on above: Order Comment: Speci men Type: URINE SPECIMENOrdering Facility: [facility] Address: [address] [place] [address] Result Comment: Urin e Metanephrine test performed by Liquid Chromatography Tandem Mass Spectrometry (LC-MS/MS). Results obtained with different methods or kits cannot be used interchangeably.This test was developed and its performance characteristics determined by [facility] Pathology [facility] Medicine [place] ([facility]). It has not been cleared or approved by the FDA. [facility] is regulated under CLIA as qualified to perform high-complexity testing. This test is used for clinical purposes. It should not be regarded as investigational or for research. Performed By: #### U METAN ####[facility] LABIA [id number] [place] [address] [place] NORMETANEPHRINES, UR 259 ug/24 hr Normal 88-444 [facility] Comment on above: Order Comment: Speci men Type: URINE SPECIMENOrdering Facility: [facility] Address: [address] [place] [address] Performed By: #### U METAN ####[facility] LABIA [id number] [place] [address] [place] URINE FREE CORTISOL BY LC-MS /MSon 01-19-2024 CORTISOL UG/G ECHOCARDIOGRAPH TECH, UR (UFRCRT) 30.65 ug/g ECHOCARDIOGRAPH TECH Normal [facility] Comment on above: Order Comment: Speci men Type: URINE SPECIMENOrdering Facility: [facility] Address: [address] [place] [address] Result Comment: Refe rence Interval: Cortisol ug/g crtFemalePrepubertal: Less than 25 ug/g crt18 years and older: Less than 24 ug/g crtPregnancy: Less than 59 ug/g crtMalePrepubertal: Less than 25 ug/g crt18 years and older: Less than 32 ug/g api architect Performed By: #### U FRCRT ####[facility] LABORATORIESCLIA [id number] [place] [address] CREATININE, URINE PER 24H 1270 mg/d Normal 600-2000 [facility] Comment on above: Order Comment: Speci men Type: URINE SPECIMENOrdering Facility: [facility] Address: [address] [place] [address] Performed By: #### U FRCRT ####[facility] LABORATORIESCLIA [id number] [place] [address] Result Comment: Perf ormed By: [facility] [id number] [place], [place] [address]Gywfxbptlb Director: Matt Harris MD, PhDCLIA Number: [id number] Performed By: #### U RCAT2 ####[facility]ORATORIESCLIA [id number] [place] [address] CREATININE, URINE PER VOLUME 77 mg/dL Normal [facility] Comment on above: Order Comment: Speci men Type: URINE SPECIMENOrdering Facility: [facility] Address: [address] [place] [address] Performed By: #### U FRCRT ####[facility]ORATORIESCLIA [id number] [place] [address] Performed By: #### U RCAT2 ####[facility]ORATORIESCLIA [id number] [place] [address] FREE CORTISOL UG/DAY, URINE 38.9 ug/d Normal <=60.0 [facility] Comment on above: Order Comment: Speci men Type: URINE SPECIMENOrdering Facility: [facility] Address: [address] [place] [address] Performed By: #### U FRCRT ####[facility]ORATORIESCLIA [id number] [place] [address] FREE CORTISOL UG/L, URINE 23.60 ug/L Normal [facility] Comment on above: Order Comment: Speci men Type: URINE SPECIMENOrdering Facility: [facility] Address: [address] [place] [address] Performed By: #### U FRCRT ####[facility]ORATORIESCLIA [id number] [place] [address] HOURS COLLECTED 24 hr Normal [facility] Comment on above: Order Comment: Speci men Type: URINE SPECIMENOrdering Facility: [facility] Address: [address] [place] [address] Result Comment: Per 24h calculations are provided to aid interpretation forcollections with a duration of 24 hours and an average daily urinevolume. For specimens with notable deviations in collection timeor volume, ratios of analytes to a corresponding urine creatinineconcentration may assist in result interpretation. Performed By: #### U FRCRT ####[facility]IESCLIA [id number] [place] [address] Performed By: #### U RCAT2 ####[facility]ORATORIESCLIA [id number] [place] [address] Performed By: #### U CRT24 ####[facility]ORATORIESCLIA [id number] [place] [address] TOTAL VOLUME 1650 mL Normal [facility] Comment on above: Order Comment: Speci men Type: URINE SPECIMENOrdering Facility: [facility] Address: [address] [place] [address] Performed By: #### U FRCRT ####[facility]ATORIESCLIA [id number] [place] [address] Performed By: #### U RCAT2 ####[facility] LABORATORIESCLIA [id number] [place] [address] Performed By: #### U CRT24 ####[facility]ORATORIESCLIA [id number] [place] [address] UR CRISTIANE FREE INTERP See Note Normal [facility] Comment on above: Order Comment: Speci men Type: URINE SPECIMENOrdering Facility: [facility] Address: [address] [place] [address] Result Comment: INTE RPRETIVE INFORMATION: Cortisol Urine Free by LC-MS/MSAccess complete set of age- and/or gender-specific referenceintervals for this test in the [facility] Test Directory([facility]).This test was developed and its performance characteristicsdetermined by [facility]. It has not been cleared orapproved by the [place] Food and Drug Administration. This test wasperformed in a CLIA certified laboratory and is intended forclinical purposes.Performed By: [facility] [place] [id number] [place] [id number] Director: Matt Harris MD, PhDCLIA Number: [id number] Performed By: #### U FRCRT ####[facility] [id number] [place] [address] ACTH Plas-mCncon 01-16-2024 Corticotropin (P) [Mass/Vol] 26.8 pg/mL Normal 7.2-63.3 [facility] Comment on above: Order Comment: Speci men Type: BLOOD SPECIMENOrdering Facility: [facility] Address: [address] [place] [address] Result Comment: ACTH Reference Range: 7-10 am: 7.2 - 63.3 pg/mL Performed By: #### 2 141-0 ####[facility] LABCLIA [id number] [address] Aldost SerPl-mCncon 01-16-20 Aldosterone [Mass/Vol] 9.6 ng/dL Normal 0.0-<35.4 [facility] Comment on above: Order Comment: Stan [facility] Type: BLOOD SPECIMENOrdering Facility: [facility] Address: [address] [place] [address] Result Comment: The reference interval for serum/plasma aldosterone is based on a normal sodium intake and upright position. High sodium intake may suppress aldosterone and low sodium intake may increase aldosterone.The supine reference interval is <23.7 ng/dL.A ratio of aldosterone in ng/dL to direct renin in pg/mL greater than or equal to 3.8 is a positive screening test result for primary aldosteronism, when aldosterone is greater than or equal to 15 ng/dL. Performed By: #### R GÓMEZ, 1763-2 ####[facility] LABCLIA [id number] [address] OF [place] JARADon 07-26-2 024 CATECHOLAMINE INTERPRETATION PLASMA See Note Normal [facility] Comment on above: Order Comment: Speci men Type: BLOOD SPECIMENOrdering Facility: [facility] Address: [address] [place] [address] Result Comment: INTE RPRETIVE INFORMATION: Catecholamines Panel, PlasmaSmall increases in catecholamines (less than 2 times the upperreference limit) are usually the result of physiological stimuli,drugs, or improper specimen collection. Significant elevation ofone or more catecholamines (2 or more times the upper referencelimit) is associated with an increased probability of aneuroendocrine tumor. Measurement of plasma or urine fractionatedmetanephrines provides better diagnostic sensitivity thanmeasurement of catecholamines.Lower catecholamine concentrations are observed in specimenscollected from supine adults.To convert to picograms per milliliter (pg/mL), multiply thereported concentration for Dopamine by 0.153, Epinephrine by0.183, and Norepinephrine by 0.169.Access complete set of age- and/or gender-specific referenceintervals for this test in the [facility] Test Directory([facility]).This test was developed and its performance characteristicsdetermined by [facility]. It has not been cleared orapproved by the [place] Food and Drug Administration. This test wasperformed in a CLIA certified laboratory and is intended forclinical purposes.Performed By: [id number] [place], [place] [id number] Director: Matt Harris MD, PhDCLIA Number: [id number] Performed By: #### P LCAT ####[facility] PackersCLIA [id number] [place] [address] DOPAMINE 193 pmol/L Normal <=240 [facility] Comment on above: Order Comment: Speci men Type: BLOOD SPECIMENOrdering Facility: [facility] Address: [address] [place] [address] Result Comment: INTE RPRETIVE INFORMATION: DopamineSeated (15 min) less than or equal to 240 pmol/LSupine (30 min) less than or equal to 240 pmol/L Performed By: #### P LCAT ####[facility]CL[facility] [id number] [place] [address] EPINEPHRINE (P) 250 pmol/L Normal <=330 [facility] Comment on above: Order Comment: Speci men Type: BLOOD SPECIMENOrdering Facility: [facility] Address: [address] [place] [address] Result Comment: INTE RPRETIVE INFORMATION:EpinephrineSeated (15 min) less than or equal to 330 pmol/LSupine (30 min) less than or equal to 265 pmol/L Performed By: #### P LCAT ####[facility]ORATORIESCLIA [id number] [place] [address] NOREPINEPHRINE 2787 pmol/L Normal 1322-2072 [facility] Comment on above: Order Comment: Speci men Type: BLOOD SPECIMENOrdering Facility: [facility] Address: [address] [place] [address] Result Comment: INTE RPRETIVE INFORMATION: NorepinephrineSeated (15 min) 1050 - 4800 pmol/LSupine (30 min) 680 - 3100 pmol/L Performed By: #### P LCAT ####[facility]ORATORIESCLIA [id number] [place] [address] CNOVon 01-16-2024 CNOV Normal [facility] Cortis SerPl-mCncon 01-16-20 Cortisol [Mass/Vol] 14.8 ug/dL Normal 4.8-19.5 [facility] Comment on above: Order Comment: Speci men Type: BLOOD SPECIMENOrdering Facility: [facility] Address: [address] [place] [address] Result Comment: Prov ided reference range is from 6-10 AM sample collection time.Cortisol Reference Range: 6-10 AM = 4.8-19.5 ug/dL, 4-8 PM = 2.5-11.9 ug/dL Performed By: #### Sherry WILLOUGHBY, 2143-6 ####[facility] LABCLIA [id number] [place] [address] [place] DHEA-S BLDon 01-16-2024 DHEA-S [Mass/Vol] 85.9 ug/dL Normal 16.2-123.0 [facility] Comment on above: Order Comment: Stan jiménez Type: BLOOD SPECIMENOrdering Facility: [facility] Address: [address] [place] [address] Result Comment: Refe rence ranges are age and gender specific. For additional information, reference range tables can be found in the laboratory test directory.The normal values are based on the following source: Dehydroepiandrosterone sulfate (DHEA S) [package insert V 17.0 Sami]. [facility], [place], [place]: January 2013. Performed By: #### Sherry WILLOUGHBY, 2143-6 ####[facility] LABCLIA [id number] [place] [address] [place] DIRECT RENIN PLASMAon 2023 DIRECT RENIN 38.3 pg/mL Normal 3.6-81.6 [facility] Comment on above: Order Comment: Stan jiménez Type: BLOOD SPECIMENOrdering Facility: [facility] Address: [address] [place] [address] Result Comment: A ra wilfredo of aldosterone in ng/dL to direct renin in pg/mL greater than or equal to 3.8 is a positive screening test result for primary aldosteronism, when aldosterone is greater than or equal to 15 ng/dL.The reference interval for direct renin is based on an upright position.The supine reference intervals are:Age <41 years: 3.2-33.2 pg/mLAge >=41 years: 2.5-45.1 pg/mL Performed By: #### Tasha MAGAÑA, 1762-2 ####[facility] LABCLIA [id number] [place] [address] [place] PATIENT UPRIGHT OR SUPINE Upright Normal [facility] Comment on above: Order Comment: Stan jiménez Type: BLOOD SPECIMENOrdering Facility: [facility] Address: [address] [place] [address] Performed By: #### Tasha MAGAÑA, 1762-2 ####[facility] LABCLIA [id number] [place] [address] [place] METANEPHRINES, FREE PLASMAon 01-16-2024 METANEPHRINE, PLASMA 47 pg/mL Normal 12-67 [facility] Comment on above: Order Comment: Speci men Type: BLOOD SPECIMENOrdering Facility: [facility] Address: [address] [place] [address] Result Comment: Refe rence Ranges:Hypertensive adult > or = 18 yrs old: 12-72 pg/mLNormotensive adult > or = 18 yrs old: 12-67 pg/mLNormotensive children < 18 yrs old: 10-95 pg/mL Performed By: #### P METAN ####[facility] [id number] [place] [address] [place] NORMETANEPHRINE, PLASMA 109 pg/mL High 18-101 [facility] Comment on above: Order Comment: Speci men Type: BLOOD SPECIMENOrdering Facility: [facility] Address: [address] [place] [address] Result Comment: Refe rence Ranges:Hypertensive adult > or = 18 yrs old: 24-145 pg/mLNormotensive adult > or = 18 yrs old: 18-101 pg/mLNormotensive children < 18 yrs old: 22-83 pg/mLMethyldopa may cause false elevation of normetanephrine levels in this assay. If patient is on methyldopa, interpret results with caution. Performed By: #### P METAN ####[facility] LABNORTHEAST[facility] [id number] [place] [address] [place] CNPNon 01-14-2024 CNPN Normal [facility] PSA/PROSTATE SPECIFIC ANTIGE N SCREENINGon 01-10-2024 Prostate specific Ag [Mass/Vol] 1.27 ng/mL Normal <2.60 [facility] Comment on above: Order Comment: Speci men Type: BLOOD SPECIMENOrdering Facility: [facility] Address: [address] [place] [address] Result Comment: Tota l PSA test methodology used is the Electrochemiluminescence Immunoassay by [facility]. Total PSA values by differing methodologies cannot be interchanged. Performed By: #### P SAS1 ####[facility] LABCLIA [id number] [place] [id number] [place] CNPNon 01-09-2024 CNPN Normal [facility] CT ABD/PEL W IVCONon 024 CT ABD/PEL W IVCON Normal [facility] CT Abdomen and Pelvis W cont rast Rachel 01-09-2024 IMPRESSION: 1. 23 cm left suprarenal mass, presumably primary adrenal malignancy 2. Incidental findings as follows. Renal cysts. Small right fat-containing inguinal hernia. Large prostate. Severe distal colonic diverticulosis. Field Project Manager: PSCB Transcribe Date/Time: Jan 09 2024 3:15P Dictated by : KIMBERLY CODY MD This examination was interpreted and the report reviewed and electronically signed by: KIMBERLY CODY MD on Jan 09 2024 3:50PM [facility] DIVISION OF RADIOLOGY * * *Final Report* * * DATE OF EXAM: Jan 09 2024 3:00PM [facility] 0530 - CT ABD/PEL W IVCON / PROCEDURE REASON: multiple diagnoses * * * * Physician Interpretation * * * * EXAMINATION: CT ABDOMEN AND PELVIS WITH IV CONTRAST CLINICAL HISTORY: Palpable left upper quadrant mass TECHNIQUE: CT of the abdomen and pelvis was performed using standard technique, scanning from just above the dome of the diaphragm to the symphysis pubis. MQ: CTAP_3 Contrast: IV: 100 ml of Omnipaque 350 Oral: 10 ml of Omni 240 10-25ml diluted with water CT Radiation dose: Integrated Dose-length product (DLP) for this visit = 751 mGy*cm. CT Dose Reduction Employed: Automated exposure control(AEC) and iterative recon COMPARISON: None. RESULT: Liver: No mass. Normal size Biliary: No bile duct dilation. Unremarkable gallbladder Spleen: No mass. No splenomegaly. Pancreas: No mass or duct dilation. Adrenals: 1. Left suprarenal ovoid mass measuring up to 23 cm is internally heterogeneous, having primarily peripheral areas of higher density in addition to scattered internal coarse calcifications. Mass margins are smoothly circumscribed rather than infiltrative. Compresses and displaces adjacent anatomic structures. 2. Left adrenal gland not identified. Normal right adrenal gland Kidneys: Bilateral cysts. No suspect lesions. No intrarenal calculi. No hydroureteronephrosis. Indeterminate 9 mm ovoid right pelvic calcification with regard to venous or distal ureteral. Approximately symmetric bilateral perirenal stranding GI tract: No dilation or wall thickening. Numerous distal colonic diverticula. Unremarkable appendix identified. Administered enteric contrast occupies distal small bowel and proximal large bowel Lymph nodes: Normal-sized lymph nodes Mesentery/Peritoneum: No ascites or mass. Retroperitoneum: See comments regarding adrenal glands Vasculature: Patent central vessels Pelvis: No mass, ascites or fluid collection. Bladder not overdistended. Prostate large. Bones/Soft Tissues: No acute osseous abnormality. Small fat-containing direct right inguinal hernia Lower thorax: No acute findings. Incidental small postinflammatory calcified pulmonary nodules Localizer images: Frontal and lateral images. Mass effect left abdomen. Bowel positioned right abdomen primarily. Bowel gas pattern nonobstructive. No evident consolidations imaged chest. External artifacts and devices. DIVISION OF RADIOLOGY Provider, [facility] - 01/09/2024 * * *Final Report* * * DATE OF EXAM: Jan 09 2024 3:00PM [facility] 0530 - CT ABD/PEL W IVCON / PROCEDURE REASON: multiple diagnoses * * * * Physician Interpretation * * * * EXAMINATION: CT ABDOMEN AND PELVIS WITH IV CONTRAST CLINICAL HISTORY: Palpable left upper quadrant mass TECHNIQUE: CT of the abdomen and pelvis was performed using standard technique, scanning from just above the dome of the diaphragm to the symphysis pubis. MQ: CTAP_3 Contrast: IV: 100 ml of Omnipaque 350 Oral: 10 ml of Omni 240 10-25ml diluted with water CT Radiation dose: Integrated Dose-length product (DLP) for this visit = 751 mGy*cm. CT Dose Reduction Employed: Automated exposure control(AEC) and iterative recon COMPARISON: None. RESULT: Liver: No mass. Normal size Biliary: No bile duct dilation. Unremarkable gallbladder Spleen: No mass. No splenomegaly. Pancreas: No mass or duct dilation. Adrenals: 1. Left suprarenal ovoid mass measuring up to 23 cm is internally heterogeneous, having primarily peripheral areas of higher density in addition to scattered internal coarse calcifications. Mass margins are smoothly circumscribed rather than infiltrative. Compresses and displaces adjacent anatomic structures. 2. Left adrenal gland not identified. Normal right adrenal gland Kidneys: Bilateral cysts. No suspect lesions. No intrarenal calculi. No hydroureteronephrosis. Indeterminate 9 mm ovoid right pelvic calcification with regard to venous or distal ureteral. Approximately symmetric bilateral perirenal stranding GI tract: No dilation or wall thickening. Numerous distal colonic diverticula. Unremarkable appendix identified. Administered enteric contrast occupies distal small bowel and proximal large bowel Lymph nodes: Normal-sized lymph nodes Mesentery/Peritoneum: No ascites or mass. Retroperitoneum: See comments regarding adrenal glands Vasculature: Patent central vessels Pelvis: No mass, ascites or fluid collection. Bladder not overdistended. Prostate large. Bones/Soft Tissues: No acute osseous abnormality. Small fat-containing direct right inguinal hernia Lower thorax: No acute findings. Incidental small postinflammatory calcified pulmonary nodules Localizer images: Frontal and lateral images. Mass effect left abdomen. Bowel positioned right abdomen primarily. Bowel gas pattern nonobstructive. No evident consolidations imaged chest. External artifacts and devices. IMPRESSION IMPRESSION: 1. 23 cm left suprarenal mass, presumably primary adrenal malignancy 2. Incidental findings as follows. Renal cysts. Small right fat-containing inguinal hernia. Large prostate. Severe distal colonic diverticulosis. Field Project Manager: SAÚL Transcribe Date/Time: Jan 09 2024 3:15P Dictated by : KIMBERLY CODY MD This examination was interpreted and the report reviewed and electronically signed by: KIMBERLY CODY MD on Jan 09 2024 3:50PM EST [facility] Radiology Study observation (narrative) [facility] CT Abdomen and Pelvis W cont rast IVOrdered By: Ccf Provider on 01-09-2024 [facility] CNPNon 01-07-2024 CNPN Normal [facility] CBC W Auto Differential pane l (Bld)on 01-06-2024 Basophils (Bld) [#/Vol] 0.10 10*3/uL Normal <0.11 [facility] Comment on above: Order Comment: Speci men Type: BLOOD SPECIMENOrdering Facility: [facility] Address: [facility] [place] [address] Performed By: #### 5 7021-8, 4537-7 ####[facility] LABCLIA [id number] [place] [address] [place] Basophils/100 WBC (Bld) 1.0 % Normal [facility] Comment on above: Order Comment: Speci men Type: BLOOD SPECIMENOrdering Facility: [facility] Address: [address] [place] [address] Performed By: #### 5 7021-8, 4536-7 ####[facility] LABCLIA [id number] [place] [address] [place] Differential cell count method Nom (Bld) Auto Normal [facility] Comment on above: Order Comment: Speci men Type: BLOOD SPECIMENOrdering Facility: [facility] Address: [address] [place] [address] Performed By: #### 5 7021-8, 7 ####[facility] LABCLIA [id number] [place] [address] [place] Eosinophils (Bld) [#/Vol] 0.11 10*3/uL Normal <0.46 [facility] Comment on above: Order Comment: Speci men Type: BLOOD SPECIMENOrdering Facility: [facility] Address: [address] [place] [address] Performed By: #### 5 7021-8, 7 ####[facility] LABCLIA [id number] [place] [address] [place] Eosinophils/100 WBC (Bld) 1.1 % Normal [facility] Comment on above: Order Comment: Speci men Type: BLOOD SPECIMENOrdering Facility: [facility] Address: [address] [place] [address] Performed By: #### 5 7021-8, 4536-7 ####[facility] LABCLIA [id number] [place] [address] [place] Erythrocyte distribution width (RBC) [Ratio] 13.6 % Normal 11.5-15.0 [facility] Comment on above: Order Comment: Speci men Type: BLOOD SPECIMENOrdering Facility: [facility] Address: [address] [place] [address] Performed By: #### 5 7021-8, 7-7 ####[facility] LABCLIA [id number] [place] [address] [place] Hematocrit (Bld) [Volume fraction] 49.0 % Normal 39.0-51.0 [facility] Comment on above: Order Comment: Speci men Type: BLOOD SPECIMENOrdering Facility: [facility] Address: [address] [place] [address] Performed By: #### 5 7021-8, 4536-7 ####[facility] LABCLIA [id number] [place] [address] [place] Hemoglobin (Bld) [Mass/Vol] 16.4 g/dL Normal 13.0-17.0 [facility] Comment on above: Order Comment: Speci men Type: BLOOD SPECIMENOrdering Facility: [facility] Address: [address] [place] [address] Performed By: #### 5 7021-8, 4536-7 ####[facility] LABIA [id number] [place] [address] [place] Immature granulocytes (Bld) [#/Vol] 0.03 10*3/uL Normal <0.10 [facility] Comment on above: Order Comment: Speci men Type: BLOOD SPECIMENOrdering Facility: [facility] Address: [address] [place] [address] Performed By: #### 5 7021-8, 4536-7 ####[facility] LABCLIA [id number] [place] [address] [place] Immature granulocytes/100 WBC (Bld) 0.3 % Normal [facility] Comment on above: Order Comment: Speci men Type: BLOOD SPECIMENOrdering Facility: [facility] Address: [address] [place] [address] Performed By: #### 5 7021-8, 4536-7 ####[facility] LABCLIA [id number] [place] [address] [place] Lymphocytes (Bld) [#/Vol] 1.42 10*3/uL Normal 1.00-4.00 [facility] Comment on above: Order Comment: Speci men Type: BLOOD SPECIMENOrdering Facility: [facility] Address: [address] [place] [address] Performed By: #### 5 7021-8, 4537-7 ####[facility] LABIA [id number] [place] [address] [place] Lymphocytes/100 WBC (Bld) 14.4 % Normal [facility] Comment on above: Order Comment: Speci men Type: BLOOD SPECIMENOrdering Facility: [facility] Address: [address] [place] [address] Performed By: #### 5 7021-8, 4537-7 ####[facility] [id number] [place] [address] [place] MCH (RBC) [Entitic mass] 31.4 pg Normal 26.0-34.0 [facility] Comment on above: Order Comment: Speci men Type: BLOOD SPECIMENOrdering Facility: [facility] Address: [address] [place] [address] Performed By: #### 5 7021-8, 4537-7 ####[facility] [id number] [place] [address] [place] MCHC (RBC) [Mass/Vol] 33.5 g/dL Normal 30.5-36.0 [facility] Comment on above: Order Comment: Speci men Type: BLOOD SPECIMENOrdering Facility: [facility] Address: [address] [place] [address] Performed By: #### 5 7021-8, 4537-7 ####[facility] LABIA [id number] [place] [address] [place] MCV (RBC) [Entitic vol] 93.7 fL Normal 80.0-100.0 [facility] Comment on above: Order Comment: Speci men Type: BLOOD SPECIMENOrdering Facility: [facility] Address: [address] [place] [address] Performed By: #### 5 7021-8, 7 ####[facility] LABCLIA [id number] [place] [address] [place] Monocytes (Bld) [#/Vol] 0.68 10*3/uL Normal <0.87 [facility] Comment on above: Order Comment: Speci men Type: BLOOD SPECIMENOrdering Facility: [facility] Address: [address] [place] [address] Performed By: #### 5 7021-8, 7 ####[facility] LABCLIA [id number] [place] [address] [place] Monocytes/100 WBC (Bld) 6.9 % Normal [facility] Comment on above: Order Comment: Speci men Type: BLOOD SPECIMENOrdering Facility: [facility] Address: [address] [place] [address] Performed By: #### 5 7021-8, 4536-12 ####[facility] LABCLIA [id number] [place] [address] [place] Neutrophils (Bld) [#/Vol] 7.52 10*3/uL High 1.45-7.50 [facility] Comment on above: Order Comment: Speci men Type: BLOOD SPECIMENOrdering Facility: [facility] Address: [address] [place] [address] Performed By: #### 5 7021-8, 7 ####[facility] LABCLIA [id number] [place] [address] [place] Neutrophils/100 WBC (Bld) 76.3 % Normal [facility] Comment on above: Order Comment: Speci men Type: BLOOD SPECIMENOrdering Facility: [facility] Address: [address] [place] [address] Performed By: #### 5 7021-8, 4536-7 ####[facility] [id number] [place] [address] [place] Nucleated RBC (Bld) [#/Vol] 10*3/uL Normal <0.01 [facility] Comment on above: Order Comment: Speci men Type: BLOOD SPECIMENOrdering Facility: [facility] Address: [address] [place] [address] Performed By: #### 5 7021-8, 4536-7 ####[facility] [id number] [place] [address] [place] Nucleated RBC/100 WBC (Bld) [Ratio] 0.0 /100 WBC Normal [facility] Comment on above: Order Comment: Speci men Type: BLOOD SPECIMENOrdering Facility: [facility] Address: [address] [place] [address] Performed By: #### 5 7021-8, 4536-7 ####[facility] [id number] [place] [address] [place] Platelet mean volume (Bld) [Entitic vol] 10.4 fL Normal 9.0-12.7 [facility] Comment on above: Order Comment: Speci men Type: BLOOD SPECIMENOrdering Facility: [facility] Address: [address] [place] [address] Performed By: #### 5 7021-8, 4536-7 ####[facility] [id number] [place] [address] [place] Platelets (Bld) [#/Vol] 238 10*3/uL Normal 150-400 [facility] Comment on above: Order Comment: Speci men Type: BLOOD SPECIMENOrdering Facility: [facility] Address: [address] [place] [address] Performed By: #### 5 7021-8, 4537-7 ####[facility] LABCLIA [id number] [address] [address] [place] RBC (Bld) [#/Vol] 5.23 10*6/uL Normal 4.20-6.00 [facility] Comment on above: Order Comment: Speci men Type: BLOOD SPECIMENOrdering Facility: [facility] Address: [address] [place] [address] Performed By: #### 5 7021-8, 4537-7 ####[facility] LABCLIA [id number] [place] [address] [place] WBC (Bld) [#/Vol] 9.86 10*3/uL Normal 3.70-11.00 [facility] Comment on above: Order Comment: Speci men Type: BLOOD SPECIMENOrdering Facility: [facility] Address: [address] [place] [address] Performed By: #### 5 7021-8, 4537-7 ####[facility] LABCLIA [id number] [place] [address] [place] Comprehensive metabolic 2000 panelon 01-06-2024 Albumin [Mass/Vol] 4.4 g/dL Normal 3.9-4.9 [facility] Comment on above: Order Comment: Speci men Type: BLOOD SPECIMENOrdering Facility: [facility] Address: [address] [place] [address] Performed By: #### 2 4323-8, 37454-6, 3016-3 ####[facility] LABCLIA [id number] [place] [address] [place] ALP [Catalytic activity/Vol] 105 U/L Normal 38-113 [facility] Comment on above: Order Comment: Speci men Type: BLOOD SPECIMENOrdering Facility: [facility] Address: [address] [place] [address] Performed By: #### 2 4323-8, 29371-3, 3016-3 ####[facility] LABCLIA [id number] [place] [id number] [place] ALT [Catalytic activity/Vol] 16 U/L Normal 10-54 [facility] Comment on above: Order Comment: Speci men Type: BLOOD SPECIMENOrdering Facility: [facility] Address: [address] [place] [address] Performed By: #### 2 4323-8, 60221-7, 6-3 ####[facility] LABCLIA [id number] [place] [address] [place] Anion gap [Moles/Vol] 13 mmol/L Normal 8-15 [facility] Comment on above: Order Comment: Speci men Type: BLOOD SPECIMENOrdering Facility: [facility] Address: [address] [place] [address] Performed By: #### 2 4323-8, 31223-5, 6-3 ####[facility] LABCLIA [id number] [place] [address] [place] AST [Catalytic activity/Vol] 13 U/L Low 14-40 [facility] Comment on above: Order Comment: Speci men Type: BLOOD SPECIMENOrdering Facility: [facility] Address: [address] [place] [address] Performed By: #### 2 4323-8, 81364-8, 6-3 ####[facility] LABCLIA [id number] [place] [id number] [place] Bilirubin [Mass/Vol] 0.6 mg/dL Normal 0.2-1.3 [facility] Comment on above: Order Comment: Speci men Type: BLOOD SPECIMENOrdering Facility: [facility] Address: [address] [place] [address] Performed By: #### 2 4323-8, 65167-2, 3016-3 ####[facility] LABCLIA [id number] [place] [id number] [place] Calcium [Mass/Vol] 9.7 mg/dL Normal 8.5-10.2 [facility] Comment on above: Order Comment: Speci men Type: BLOOD SPECIMENOrdering Facility: [facility] Address: [address] [place] [address] Performed By: #### 2 4323-8, 34250-0, 3016-3 ####[facility] LABCLIA [id number] [place] [id number] [place] Chloride [Moles/Vol] 102 mmol/L Normal 98-107 [facility] Comment on above: Order Comment: Speci men Type: BLOOD SPECIMENOrdering Facility: [facility] Address: [address] [place] [address] Performed By: #### 2 4323-8, 99317-0, 3016-3 ####[facility] LABCLIA [id number] [place] [address] [place] CO2 [Moles/Vol] 23 mmol/L Normal 22-30 [facility] Comment on above: Order Comment: Speci men Type: BLOOD SPECIMENOrdering Facility: [facility] Address: [address] [place] [address] Performed By: #### 2 4323-8, 91132-8, 3016-3 ####[facility] LABCLIA [id number] [place] [id number] [place] Creatinine [Mass/Vol] 0.99 mg/dL Normal 0.73-1.22 [facility] Comment on above: Order Comment: Speci men Type: BLOOD SPECIMENOrdering Facility: [facility] Address: [address] [place] [address] Performed By: #### 2 4323-8, 06767-5, 3016-3 ####[facility] LABCLIA [id number] [place] [id number] [place] Creatinine and Glomerular filtration rate.predicted panel (S/P/Bld) 75 mL/min/1.73m??? Normal >=60 [facility] Comment on above: Order Comment: Stan jiménez Type: BLOOD SPECIMENOrdering Facility: [facility] Address: [address] [place] [address] Result Comment: Sun mated Glomerular Filtration Rate (eGFR) is calculated using the 2020 CKD-EPI creatinine equation. This equation utilizes serum creatinine, sex, and age as parameters. The creatinine assay has traceable calibration to isotope dilution-mass spectrometry. Refer to KDIGO guidelines for clinical interpretation. In patients with unstable renal function, e.g. those with acute kidney injury, the eGFR may not accurately reflect actual GFR. Performed By: #### 2 4323-8, 94080-2, 3016-3 ####[facility] LABCLIA [id number] [place] [address] [place] Glucose [Mass/Vol] 194 mg/dL High 74-99 [facility] Comment on above: Order Comment: Stan jiménez Type: BLOOD SPECIMENOrdering Facility: [facility] Address: [address] [place] [address] Result Comment: The [place] [employer] (ADA) provides guidance for cutoff values for fasting glucose and random glucose. The ADA defines fasting as no caloric intake for at least 8 hours. Fasting plasma glucose results between 100 to 125 mg/dL indicate increased risk for diabetes (prediabetes).Fasting plasma glucose results greater than or equal to 126 mg/dL meet the criteria for diagnosis of diabetes. In the absence of unequivocal hyperglycemia, results should be confirmed by repeat testing. In a patient with classic symptoms of hyperglycemia or hyperglycemic crisis, random plasma glucose results greater than or equal to 200 mg/dL meet the criteria for diagnosis of diabetes.Reference: Standards of Medical Care in Diabetes 2016, [place] [employer]. Diabetes Care. 2016.39(Suppl 1). Performed By: #### 2 4323-8, 57246-2, 3016-3 ####[facility] LABCLIA [id number] [place] [id number] [place] Potassium [Moles/Vol] 4.5 mmol/L Normal 3.7-5.1 [facility] Comment on above: Order Comment: Speci men Type: BLOOD SPECIMENOrdering Facility: [facility] Address: [address] [place] [address] Performed By: #### 2 4323-8, 19543-6, 3016-3 ####[facility] LABCLIA [id number] [place] [address] [place] Protein [Mass/Vol] 6.8 g/dL Normal 6.3-8.0 [facility] Comment on above: Order Comment: Speci men Type: BLOOD SPECIMENOrdering Facility: [facility] Address: [address] [place] [address] Performed By: #### 2 4323-8, 33008-8, 6-3 ####[facility] LABCLIA [id number] [place] [address] [place] Sodium [Moles/Vol] 138 mmol/L Normal 136-144 [facility] Comment on above: Order Comment: Speci men Type: BLOOD SPECIMENOrdering Facility: [facility] Address: [address] [place] [address] Performed By: #### 2 4323-8, 56205-3, 6-3 ####[facility] LABCLIA [id number] [place] [address] [place] Urea nitrogen [Mass/Vol] 22 mg/dL Normal 9-24 [facility] Comment on above: Order Comment: Speci men Type: BLOOD SPECIMENOrdering Facility: [facility] Address: [address] [place] [address] Performed By: #### 2 4323-8, 76219-7, 3016-3 ####[facility] LABCLIA [id number] [place] [id number] [place] ESR Westergren method (Bld) [Velocity]on 07-16-2024 ESR (Bld) [Velocity] 2 mm/h Normal 0-15 [facility] Comment on above: Order Comment: Speci men Type: BLOOD SPECIMENOrdering Facility: [facility] Address: [address] [place] [address] Performed By: #### 5 7021-8, 4537-7 ####[facility] LABCLIA [id number] [place] [address] [place] Hemoccult Stl Ql IAon 2023 Lower GI hemoglobin IA Ql (Stl) Positive Abnormal Negative [facility] Comment on above: Order Comment: Speci men Type: STOOL SPECIMENOrdering Facility: [facility] Address: [address] [place] [address] Performed By: #### 2 9771-3 ####[facility] LABCLIA [id number] [place] [address] [place] Prealb SerPl-mCncon 01-06-20 24 Prealbumin [Mass/Vol] 26 mg/dL Normal 17-36 [facility] Comment on above: Order Comment: Speci men Type: BLOOD SPECIMENOrdering Facility: [facility] Address: [address] [place] [address] Performed By: #### 2 4323-8, 82369-2, 3016-3 ####[facility] LABCLIA [id number] [place] [address] [place] TSH SerPl-aCncon 01-06-2024 TSH Qn 0.862 m[IU]/L Normal 0.270-4.200 [facility] Comment on above: Order Comment: Speci men Type: BLOOD SPECIMENOrdering Facility: [facility] Address: [address] [place] [address] Performed By: #### 2 4323-8, 15150-6, 3016-3 ####[facility] LABCLIA [id number] [address] [place] CNOVon 01-05-2024 CNOV Normal [facility] CBC W Auto Differential pane l (Bld)on 10-03-2023 Basophils (Bld) [#/Vol] 0.10 10*3/uL <0.11 k/uL [facility] Basophils/100 WBC (Bld) 1.1 % [facility] Differential cell count method Nom (Bld) Auto [facility] Eosinophils (Bld) [#/Vol] <0.46 k/uL [facility] Eosinophils/100 WBC (Bld) 0.2 % [facility] Erythrocyte distribution width (RBC) [Ratio] 14.4 % 11.5 - 15.0 % [facility] Hematocrit (Bld) [Volume fraction] 46.8 % 39.0 - 51.0 % [facility] Hemoglobin (Bld) [Mass/Vol] 15.2 g/dL 13.0 - 17.0 g/dL [facility] Immature granulocytes (Bld) [#/Vol] 0.04 10*3/uL <0.10 k/uL [facility] Immature granulocytes/100 WBC (Bld) 0.4 % [facility] Lymphocytes (Bld) [#/Vol] 1.44 10*3/uL 1.00 - 4.00 k/uL [facility] Lymphocytes/100 WBC (Bld) 16.0 % [facility] MCH (RBC) [Entitic mass] 30.8 pg 26.0 - 34.0 pg [facility] MCHC (RBC) [Mass/Vol] 32.5 g/dL 30.5 - 36.0 g/dL [facility] MCV (RBC) [Entitic vol] 94.9 fL 80.0 - 100.0 fL [facility] Monocytes (Bld) [#/Vol] 0.75 10*3/uL <0.87 k/uL [facility] Monocytes/100 WBC (Bld) 8.3 % [facility] Neutrophils (Bld) [#/Vol] 6.65 10*3/uL 1.45 - 7.50 k/uL [facility] Neutrophils/100 WBC (Bld) 74.0 % [facility] Nucleated RBC (Bld) [#/Vol] <0.01 k/uL [facility] Nucleated RBC/100 WBC (Bld) [Ratio] 0.0 /100 WBC [facility] Platelet mean volume (Bld) [Entitic vol] 10.0 fL 9.0 - 12.7 fL [facility] Platelets (Bld) [#/Vol] 230 10*3/uL 150 - 400 k/uL [facility] RBC (Bld) [#/Vol] 4.93 10*6/uL 4.20 - 6.0 0 m/uL [facility] WBC (Bld) [#/Vol] 9.00 10*3/uL 3.70 - 11.00 k/uL [facility] Absolute lymphocyte countOrd ered By: Diogenes Hermosillo on 04-23-2023 Lymphocytes Auto (Unsp spec) [#/Vol] 1.56 10*3/uL 0.83-4.51 [facility] Basophil percentageOrdered B y: Diogenes Hermosillo on 04-23-2023 Basophils/100 WBC (Bld) 0.7 % 0-1 [facility] Chloride [Moles/Vol] 103 mmol/L 98-107 [facility] Eosinophils/100 WBC (Bld) 0.1 % 0-5 [facility] Glucose [Mass/Vol] 199 mg/dL 74-106 [facility] Comment on above: Fasting Glucose resu lt greater than or equal to 126 mg/dL suggests DIABETES MELLITUS per A.D.A. criteria. Neutrophils (Bld) [#/Vol] 7.6 10*3/uL 2.0-7.7 [facility] Neutrophils/100 WBC (Bld) 75.6 % 47-70 [facility] Potassium [Moles/Vol] 4.4 mmol/L 3.5-5.1 [facility] Sodium [Moles/Vol] 136 mmol/L 136-145 [facility] WBC (Bld) [#/Vol] 10.1 10*3/uL 4.4-11.0 [facility] Blood erythrocytes count (nu mber/volume)Ordered By: Diogenes Hermosillo on 04-23-2023 RBC (Bld) [#/Vol] 5.39 10*6/uL 4.6-6.2 [facility] Blood hemoglobin measurement (mass/volume)Ordered By: Diogenes Hermosillo on 04-23-2023 Hemoglobin (Bld) [Mass/Vol] 17.4 g/dL 13.0-16.5 [facility] Blood lymphocytes/100 leukoc ytesOrdered By: Diogenes Hermosillo on 04-23-2023 Lymphocytes/100 WBC (Bld) 15.5 % 19-41 [facility] Blood monocytes/100 leukocyt esOrdered By: Diogenes Hermosillo on 04-23-2023 Monocytes/100 WBC (Bld) 7.8 % 0-10 [facility] Blood platelet mean volumeOr dered By: Diogenes Hermosillo on 04-23-2023 Platelet mean volume (Bld) [Entitic vol] 9.4 fL 6.2-12.0 [facility] Determination of erythrocyte mean corpuscular volume (MCV)Ordered By: Diogenes Hermosillo on 04-23-2023 MCV (RBC) [Entitic vol] 92.8 fL 80-94 [facility] Hematocrit Auto (Bld) [Volum e fraction]Ordered By: Diogenes Hermosillo on 04-23-2023 Hematocrit (Bld) [Volume fraction] 50.0 % 40-54 [facility] INR in Blood by Coagulation assayOrdered By: Diogenes Hermosillo on 04-23-2023 INR Coag (Bld) [Relative time] 1.3 {INR} [facility] Laboratory - Chemistry and C hemistry - challengeOrdered By: Diogenes Hermosillo on 04-23-2023 CO2 [Moles/Vol] 26.0 mmol/L 21.0-32.0 [facility] Magnesium [Mass/Vol] 2.3 mg/dL 1.6-2.6 [facility] Urea nitrogen/Creatinine [Mass ratio] 19.5 mg/mg 10-20 [facility] Laboratory - CoagulationOrde red By: Diogenes Hermosillo on 04-23-2023 aPTT Coag (Bld) [Time] 34.5 s 24.1-36.2 [facility] PT Coag (PPP) [Time] 16.1 s 11.7-14.9 [facility] Laboratory - Hematology and Cell countsOrdered By: Diogenes Hermosillo on 04-23-2023 Erythrocyte distribution width (RBC) [Entitic vol] 45.8 fL 35.1-43.9 [facility] Erythrocyte distribution width (RBC) [Ratio] 13.4 % 11.6-14.6 [facility] Immature granulocytes/100 WBC (Bld) 0.300 % 0.0-0.9 [facility] Comment on above: IG% - Immature Granu locytes (promyelocytes, myelocytes and metamyelocytes) > 1% indicates that a LEFT SHIFT is Present. MCH (RBC) [Entitic mass] 32.3 pg 27.0-32.0 [facility] Nucleated RBC/100 WBC (Bld) [Ratio] 0 % 0-5 [facility] MCHC Auto (RBC) [Mass/Vol]Or dered By: Diogenes Hermosillo on 04-23-2023 MCHC (RBC) [Mass/Vol] 34.8 g/dL 32-36 [facility] No Panel InformationOrdered By: Diogenes Hermosillo on 04-23-2023 Estimated Creatinine Clearance Calc 55.26 ml/min [facility] Estimated GFR (MDRD) Amer 94 mL/min >60 [facility] Comment on above: GFR Calc Estimated GFR (MDRD) Non-Af Amer 78 mL/min >60 [facility] Comment on above: Non- GFR Calc Platelets bldOrdered By: Rishi Hermosillo on 04-23-2023 Platelets (Bld) [#/Vol] 222 10*3/uL 150-450 [facility] Serum or plasma calcium landry urement (mass/volume)Ordered By: Diogenes Hermosillo on 04-23-2023 Calcium [Mass/Vol] 9.4 mg/dL 8.5-10.1 [facility] Serum or plasma creatinine m easurement (mass/volume)Ordered By: Diogenes Hermosillo on 04-23-2023 Creatinine [Mass/Vol] 0.98 mg/dL 0.70-1.30 [facility] Comment on above: The validity of the calculated GFR & GFRAA in patients over 70 years has not been determined. Clinical correlation is essential. Serum or plasma urea nitroge n measurement (mass/volume)Ordered By: Diogenes Hermosillo on 04-23-2023 Urea nitrogen [Mass/Vol] 19 mg/dL 7-18 [facility] Thin prep Papanicolaou smear with manual screeningOrdered By: Diogenes Hermosillo on 04-23-2023 Thin prep Papanicolaou smear with manual screening 7 5-15 [facility] Absolute lymphocyte counton 03-31-2022 Lymphocytes Auto (Unsp spec) [#/Vol] 1.06 10*3/uL 0.83-4.51 [facility] Work Phone: Basophil percentageon 2021 Basophils/100 WBC (Bld) 0.6 % 0-1 [facility] Work Phone: Bilirubin [Mass/Vol] 0.50 mg/dL 0.20-1.00 [facility] Work Phone: Comment on above: For patients on eltr ombopag therapy, use of [employer] [place] TBIL is not recommended. Chloride [Moles/Vol] 100 mmol/L 98-107 [facility] Work Phone: Eosinophils/100 WBC (Bld) 0.0 % 0-5 [facility] Work Phone: Glucose [Mass/Vol] 183 mg/dL 74-106 [facility] Work Phone: Comment on above: Fasting Glucose resu lt greater than or equal to 126 mg/dL suggests DIABETES MELLITUS per A.D.A. criteria. Lactate [Moles/Vol] 1.4 mmol/L 0.4-2.0 [facility] Work Phone: [phone] Neutrophils (Bld) [#/Vol] 3.0 10*3/uL 2.0-7.7 [facility] Work Phone: Neutrophils/100 WBC (Bld) 64.1 % 47-70 [facility] Work Phone: Potassium [Moles/Vol] 4.1 mmol/L 3.5-5.1 [facility] Work Phone: Protein [Mass/Vol] 7.4 g/dL 6.4-8.2 [facility] Work Phone: Sodium [Moles/Vol] 133 mmol/L 136-145 [facility] Work Phone: WBC (Bld) [#/Vol] 4.7 10*3/uL 4.4-11.0 [facility] Work Phone: Blood erythrocytes count (nu mber/volume)on 03-31-2022 RBC (Bld) [#/Vol] 5.70 10*6/uL 4.6-6.2 [facility] Work Phone: Blood hemoglobin measurement (mass/volume)on 03-31-2022 Hemoglobin (Bld) [Mass/Vol] 17.9 g/dL 13.0-16.5 [facility] Work Phone: Blood lymphocytes/100 leukoc yteson 03-31-2022 Lymphocytes/100 WBC (Bld) 22.6 % 19-41 [facility] Work Phone: Blood monocytes/100 leukocyt eson 03-31-2022 Monocytes/100 WBC (Bld) 12.3 % 0-10 [facility] Work Phone: Blood platelet mean volumeon 03-31-2022 Platelet mean volume (Bld) [Entitic vol] 9.6 fL 6.2-12.0 [facility] [facility] Work Phone: Determination of erythrocyte mean corpuscular volume (MCV)on 03-31-2022 MCV (RBC) [Entitic vol] 92.6 fL 80-94 [facility] Work Phone: Hematocrit Auto (Bld) [Volum e fraction]on 03-31-2022 Hematocrit (Bld) [Volume fraction] 52.8 % 40-54 [facility] Work Phone: Laboratory - Chemistry and C hemistry - challengeon 03-31-2022 ALP [Catalytic activity/Vol] 79 U/L 45-117 [facility] Work Phone: ALT [Catalytic activity/Vol] 27 U/L 16-61 [facility] Work Phone: CO2 [Moles/Vol] 25.0 mmol/L 21.0-32.0 [facility] Work Phone: Globulin (S) [Mass/Vol] 3.8 g/dL 2.2-4.2 [facility] Work Phone: Urea nitrogen/Creatinine [Mass ratio] 14.3 mg/mg 10-20 [facility] Work Phone: Laboratory - Hematology and Cell countson 03-31-2022 Erythrocyte distribution width (RBC) [Entitic vol] 44.5 fL 35.1-43.9 [facility] Work Phone: Erythrocyte distribution width (RBC) [Ratio] 13.2 % 11.6-14.6 [facility] Work Phone: Immature granulocytes/100 WBC (Bld) 0.400 % 0.0-0.9 [facility] Work Phone: Comment on above: IG% - Immature Granu locytes (promyelocytes, myelocytes and metamyelocytes) > 1% indicates that a LEFT SHIFT is Present. MCH (RBC) [Entitic mass] 31.4 pg 27.0-32.0 [facility] Work Phone: Nucleated RBC/100 WBC (Bld) [Ratio] 0 % 0-5 [facility] Work Phone: MCHC Auto (RBC) [Mass/Vol]on 03-31-2022 MCHC (RBC) [Mass/Vol] 33.9 g/dL 32-36 [facility] Work Phone: No Panel Informationon 03-31 Estimated Creatinine Clearance Calc 49.42 ml/min [facility] Work Phone: Estimated GFR (MDRD) Amer 75 mL/min >60 [facility] Work Phone: Comment on above: GFR Calc Estimated GFR (MDRD) Non-Af Amer 62 mL/min >60 [facility] Work Phone: Comment on above: Non- GFR Calc Platelets bldon 03-31-2022 Platelets (Bld) [#/Vol] 171 10*3/uL 150-450 [facility] Work Phone: Serum or plasma albumin landry urement (mass/volume)on 03-31-2022 Albumin [Mass/Vol] 3.6 g/dL 3.2-5.0 [facility] Work Phone: Serum or plasma albumin/glob ulin mass ratioon 03-31-2022 Albumin/Globulin [Mass ratio] 0.9 {ratio} 0.9-2.4 [facility] Work Phone: Serum or plasma calcium landry urement (mass/volume)on 03-31-2022 Calcium [Mass/Vol] 8.9 mg/dL 8.5-10.1 [facility] Work Phone: Serum or plasma creatinine m easurement (mass/volume)on 03-31-2022 Creatinine [Mass/Vol] 1.19 mg/dL 0.70-1.30 [facility] Work Phone: Comment on above: The validity of the calculated GFR & GFRAA in patients over 70 years has not been determined. Clinical correlation is essential. Serum or plasma urea nitroge n measurement (mass/volume)on 03-31-2022 Urea nitrogen [Mass/Vol] 17 mg/dL 7-18 [facility] Work Phone: Thin prep Papanicolaou smear with manual screeningon 03-31-2022 Thin prep Papanicolaou smear with manual screening 20 U/L 15-37 [facility] Work Phone: Thin prep Papanicolaou smear with manual screening 8 5-15 [facility] Work Phone: XR CHEST 2V FRONTAL/LATon [facility] XR Chest PA and Lateralon IMPRESSION: Trace bilateral pleural effusions. No other acute process identified. Field Project Manager: PSCB Transcribe Date/Time: Sep 24 2021 2:10P Dictated by : JUAN FRANCISCO MACE MD This examination was interpreted and the report reviewed and electronically signed by: JUAN FRANCISCO MACE MD on Sep 24 2021 2:12PM [facility] DIVISION OF RADIOLOGY * * *Final Report* * * DATE OF EXAM: Sep 24 2021 11:49AM WOX 5291 - XR CHEST 2V FRONTAL/LAT / PROCEDURE REASON: SOB (shortness of breath) * * * * Physician Interpretation * * * * EXAMINATION: CHEST RADIOGRAPH (2 VIEW FRONTAL & LATERAL) CLINICAL HISTORY: SOB (shortness of breath) MQ: XC2_6 EXAM DATE/TIME: 09/24/2021 11:49 AM COMPARISON: No relevant prior studies available. RESULT: Lines, tubes, and devices: None. Lungs and pleura: Shallow lung volumes. Trace bilateral pleural effusions. No pneumothorax. No discrete focal infiltrate. Cardiomediastinal silhouette: The cardiomediastinal silhouette is mildly enlarged. Bones and soft tissues: Degenerative changes are present within the thoracic spine. DIVISION OF RADIOLOGY Provider, [facility] - 09/24/2021 * * *Final Report* * * DATE OF EXAM: Sep 24 2021 11:49AM WOX 5291 - XR CHEST 2V FRONTAL/LAT / PROCEDURE REASON: SOB (shortness of breath) * * * * Physician Interpretation * * * * EXAMINATION: CHEST RADIOGRAPH (2 VIEW FRONTAL & LATERAL) CLINICAL HISTORY: SOB (shortness of breath) MQ: XC2_6 EXAM DATE/TIME: 09/24/2021 11:49 AM COMPARISON: No relevant prior studies available. RESULT: Lines, tubes, and devices: None. Lungs and pleura: Shallow lung volumes. Trace bilateral pleural effusions. No pneumothorax. No discrete focal infiltrate. Cardiomediastinal silhouette: The cardiomediastinal silhouette is mildly enlarged. Bones and soft tissues: Degenerative changes are present within the thoracic spine. IMPRESSION IMPRESSION: Trace bilateral pleural effusions. No other acute process identified. Field Project Manager: PSCB Transcribe Date/Time: Sep 24 2021 2:10P Dictated by : JUAN FRANCISCO MACE MD This examination was interpreted and the report reviewed and electronically signed by: JUAN FRANCISCO MACE MD on Sep 24 2021 2:12PM EST [facility] Radiology Study observation (narrative) [facility] XR Chest PA and LateralOrder ed By: [facility] Provider on 09-24-2021 [facility] XR Wrist - right 4 Viewson 1 IMPRESSION: Scapholu halley instability. 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 Field Project Manager: SAÚL Transcribe Date/Time: Apr 19 2021 11:30A Dictated by : MARIBELL VINSON MD This examination was interpreted and the report reviewed and electronically signed by: MARIBELL VNISON MD on Apr 19 2021 11:42AM [facility] DIVISION OF RADIOLOGY * * *Final Report* * * DATE OF EXAM: Apr 19 2021 11:17AM WOX 5273 - XR WRIST 4V PA/LAT/OBL/SCAPH RT / PROCEDURE REASON: Wrist pain, acute, right * * * * Physician Interpretation * * * * EXAM TITLE: XR WRIST 4V PA/LAT/OBL/SCAPH RT EXAM DATE/TIME: 04/19/2021 11:17 AM COMPARISON: None. CLINICAL INDICATION/HISTORY: Fall. TECHNIQUE: PA, lateral, oblique and scaphoid views of right wrist are presented. FINDINGS: No acute fractures seen. Sclerotic changes seen in the scaphoid. 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 There is radiocarpal joint space narrowing. Rosalino space narrowing involving the second and third metacarpophalangeal joints, with degenerative changes. There are hypertrophic changes in the head of the first metacarpal and distal aspect of the right ulna. There are amorphous calcifications in the area of the lunatotriquetral ligament and triangular fibrocartilage. DIVISION OF RADIOLOGY Provider, [facility] - 04/19/2021 * * *Final Report* * * DATE OF EXAM: Apr 19 2021 11:17AM WOX 5273 - XR WRIST 4V PA/LAT/OBL/SCAPH RT / PROCEDURE REASON: Wrist pain, acute, right * * * * Physician Interpretation * * * * EXAM TITLE: XR WRIST 4V PA/LAT/OBL/SCAPH RT EXAM DATE/TIME: 04/19/2021 11:17 AM COMPARISON: None. CLINICAL INDICATION/HISTORY: Fall. TECHNIQUE: PA, lateral, oblique and scaphoid views of right wrist are presented. FINDINGS: No acute fractures seen. Sclerotic changes seen in the scaphoid. 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 There is radiocarpal joint space narrowing. Rosalino space narrowing involving the second and third metacarpophalangeal joints, with degenerative changes. There are hypertrophic changes in the head of the first metacarpal and distal aspect of the right ulna. There are amorphous calcifications in the area of the lunatotriquetral ligament and triangular fibrocartilage. IMPRESSION IMPRESSION: Scapholunate instability. 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 Field Project Manager: PSCB Transcribe Date/Time: Apr 19 2021 11:30A Dictated by : MARIBELL VINSON MD This examination was interpreted and the report reviewed and electronically signed by: MARIBELL VINSON MD on Apr 19 2021 11:42AM EST [facility] Radiology Study observation (narrative) [facility] XR Wrist - right 4 ViewsOrde red By: [facility] Provider on 04-19-2021 [facility] Lab Report: Basic Metabolic Profile (BMP)on 02-05-2017 Anion gap 6 mmol/L Invalid Interpretation Code -15 [employer] Work Phone: [phone] Anion gap molar conc 6 mmol/L 5-15 [facility] Work Phone: [phone] BUN/Creatinine Ratio 21.2 RATIO High 10-20 [facility] Work Phone: [phone] Calcium 9.2 mg/dL 8.5-10.1 [employer] Work Phone: [phone] Chloride 102 mmol/L 98-107 [employer] Work Phone: [phone] CO2 28.0 mmol/L Invalid Interpretation Code 21.0-32.0 [employer] Work Phone: [phone] CO2 ppres (BldV) 28.0 mmol/L 21.0-32.0 [employer] Work Phone: [phone] Creatinine 0.99 mg/dL 0.70-1.30 [employer] Work Phone: [phone] eGFR (non-black) 94 mL/min/{1.73_m2} Invalid Interpretation Code >60 [employer] Work Phone: [phone] eGFR (non-black) 78 mL/min/{1.73_m2} >60 [facility] Work Phone: [phone] EST GFR - AA 94 mL/min >60 [facility] Work Phone: [phone] Glucose 118 mg/dL High 70-110 [facility] Work Phone: [phone] Glucose mass conc 118 mg/dL High 70-110 [facility] Work Phone: [phone] Potassium 4.0 mmol/L 3.5-5.1 [facility] Work Phone: [phone] Sodium 136 mmol/L 136-145 [facility] Work Phone: [phone] Urea nitrogen 21 mg/dL High 7-18 [facility] Work Phone: [phone] Office Visit: [facility] 01-11-20 Dietary management education, guidance, and counseling (procedure) yes Invalid Interpretation Code [facility] Work Phone: [phone] Documentation of current medications (procedure) Done Invalid Interpretation Code [facility] Work Phone: [phone] Fall risk assessment No [facility] Work Phone: [phone] Protein mass conc Done [facility] Work Phone: [phone] Replaced Document: Rich Cardenas 01-10-2017 EKG QRS axis -70 deg [facility] Work Phone: [phone] electrocardiogram interpretation Atrial fibrillation -Left axis -anterior fascicular block. -Poor R-wave progression -nonspecific -consider old anterior infarct. ABNORMAL Invalid Interpretation Code [facility] Work Phone: [phone] GE use only - for Link[employer] import when terms are not otherwise specified 407 ms Invalid Interpretation Code [facility] Work Phone: [phone] P Holt 1 deg [facility] Work Phone: [phone] P wave axis, electrocardiogram 1 deg Invalid Interpretation Code [facility] Work Phone: [phone] MI Interval 0 ms [facility] Work Phone: [phone] MI interval, electrocardiogram 0 ms Invalid Interpretation Code [facility] Work Phone: [phone] Protein mass conc Atrial fibrillation -Left axis -anterior fascicular block. -Poor R-wave progression -nonspecific -consider old anterior infarct. ABNORMAL [facility] Work Phone: [phone] Pulse (Heart Rate) 87 /min Invalid Interpretation Code [facility] Work Phone: [phone] QRS axis, electrocardiogram -70 deg Invalid Interpretation Code [facility] Work Phone: [phone] QRS Duration 116 ms [facility] Work Phone: [phone] QRS duration, electrocardiogram 116 ms Invalid Interpretation Code [facility] Work Phone: [phone] QT Interval new path ms [facility] Work Phone: [phone] QT interval, electrocardiogram new path ms Invalid Interpretation Code [facility] Work Phone: [phone] QTc Campbell 407 ms [facility] Work Phone: [phone] T Holt 53 deg [facility] Work Phone: [phone] T wave axis, electrocardiogram 53 deg Invalid Interpretation Code [facility] Work Phone: [phone] Lab Report: Basic Metabolic Profile (BMP)on 01-09-2017 Anion gap 8 mmol/L Invalid Interpretation Code 5-15 [facility] Work Phone: [phone] Anion gap molar conc 8 mmol/L 5-[address] [facility] Work Phone: [phone] Calcium mass conc 9.1 mg/dL 8.5-10.1 [facility] Work Phone: [phone] Chloride molar conc 106 mmol/L 98-107 [facility] Work Phone: [phone] CO2 25.0 mmol/L Invalid Interpretation Code 21.0-32.0 [facility] Work Phone: [phone] CO2 ppres (BldV) 25.0 mmol/L 21.0-32.0 [facility] Work Phone: [phone] Creatinine mass conc 1.06 mg/dL 0.70-1.[address] [facility] Work Phone: [phone] eGFR (non-black) 87 mL/min/{1.73_m2} Invalid Interpretation Code >60 [facility] Work Phone: [phone] EST GFR - AA 87 mL/min >60 [facility] Work Phone: [phone] GFR/1.73 sq M predicted among non-blacks MDRD vol rate/area (S/P/Bld) 72 mL/min/{1.73_m2} >60 [facility] Work Phone: [phone] Glucose 129 mg/dL High 70-110 [facility] Work Phone: [phone] Glucose mass conc 129 mg/dL High 70-110 [facility] Work Phone: [phone] Potassium molar conc 4.3 mmol/L 3.5-5.[address] [facility] Work Phone: [phone] Sodium molar conc 139 mmol/L 136-145 [facility] Work Phone: [phone] Urea nitrogen mass conc 17 mg/dL 7-18 [facility] Work Phone: [phone] Urea nitrogen/Creatinine mass ratio 16.0 RATIO 10-20 [facility] Work Phone: [phone]) Lab Report: CBC-Complete Blo od Cnt No Diffon 01-09-2017 Erythrocyte distribution width Ratio (RBC) 13.2 % 11.6-14.6 [facility] Work Phone: [phone] Erythrocyte distribution width Ratio (RBC) 43.7 fL 35.1-43.9 [facility] Work Phone: [phone] Erythrocytes (RBC) 5.31 10*6/uL Invalid Interpretation Code 4.6-6.2 [facility] Work Phone: [phone] Hematocrit (HCT) 47.7 % Invalid Interpretation Code 40-54 [facility] Work Phone: [phone] Hematocrit Volume Fraction (Bld) 47.7 % 40-54 [facility] Work Phone: [phone] Hemoglobin mass conc (Bld) 16.7 g/dL High 13.0-16.5 [facility] Work Phone: [phone] MCH 31.5 pg Invalid Interpretation Code 27.0-32.0 [facility] Work Phone: [phone] MCH Entitic mass (RBC) 31.5 pg 27.0-32.0 [facility] Work Phone: [phone] MCHC 35.0 G/GL Invalid Interpretation Code 32-36 [facility] Work Phone: [phone] MCHC mass conc (RBC) 35.0 G/GL 32-[address] [facility] Work Phone: [phone] MCV 89.8 fL Invalid Interpretation Code 80-94 [facility] Work Phone: [phone] MCV Entitic volume (RBC) 89.8 fL 80-94 [facility] Work Phone: [phone] Platelet mean volume Entitic volume (Bld) 9.8 fL 6.2-12.0 [facility] Work Phone: [phone] Platelets 230 10*3/mm3 Invalid Interpretation Code 150-450 [facility] Work Phone: [phone] Platelets #/vol (Bld) 230 10*3/mm3 150-450 [facility] Work Phone: [phone] PMV by Mile 9.8 fL Invalid Interpretation Code 6.2-12.0 [facility] Work Phone: [phone] RBC #/vol (Bld) 5.31 10*6/uL 4.6-6.2 [facility] Work Phone: [phone] RDW-CA 13.2 % Invalid Interpretation Code 11.6-14.6 [facility] Work Phone: [phone] red blood cell distribution width, size density 43.7 fL Invalid Interpretation Code 35.1-43.9 [facility] Work Phone: [phone] WBC #/vol (Bld) 7.9 10*3/uL 4.4-11.0 [facility] Work Phone: [phone] WBC (Leukocytes) 7.9 10*3/uL Invalid Interpretation Code 4.4-11.0 [facility] Work Phone: [phone] Lab Report: Lipid Profileon 01-09-2017 Cholesterol in HDL mass conc 47 mg/dL [facility] Work Phone: [phone] Cholesterol in LDL mass conc 100 mg/dL 0-130 [facility] Work Phone: [phone] Cholesterol mass conc 181 mg/dL 200 [facility] Work Phone: [phone] Lipoprotein.pre-beta mass conc 34 mg/dL 5-40 [facility] Work Phone: [phone] Triglyceride mass conc 172 mg/dL [facility] Work Phone: [phone] Lab Report: Liver Profileon 01-09-2017 Albumin mass conc 3.7 g/dL 3.4-5.0 [facility] Work Phone: [phone] Alkaline phosphatase (ALP) 105 U/L Invalid Interpretation Code 45-117 [facility] Work Phone: [phone] ALP enzyme act/vol (Bld) 105 U/L 45-117 [facility] Work Phone: [phone] ALT enzyme act/vol 26 U/L 12-78 [facility] Work Phone: [phone] AST enzyme act/vol 10 U/L Low 15-37 [facility] Work Phone: [phone] Bilirubin mass conc 0.60 mg/dL 0.20-1.00 [facility] Work Phone: [phone] Bilirubin.direct mass conc 0.10 mg/dL 0.00-0.30 [facility] Work Phone: [phone] Globulin 3.6 g/dL High 2.3-3.5 [facility] Work Phone: [phone] Globulin mass conc (S) 3.6 g/dL High 2.3-3.5 [facility] Work Phone: [phone] Protein mass conc 7.3 g/dL 6.4-8.2 [facility] Work Phone: [phone]) Lab Report: Partial Thrombop last Timeon 01-09-2017 aPTT Coag time (Bld) 40.4 s High 24.1-36.[address] [facility] Work Phone: [phone]) Lab Report: Prothrombin Time w/INRon 01-09-2017 INR Coag RelTime (PPP) 1.4 {INR} [facility] Work Phone: [phone] INR in blood by coagulation 1.4 {INR} Invalid Interpretation Code [employer] Work Phone: [phone] Prothrombin time (PT) Coag time (PPP) 16.5 s High 11.7-14.9 [employer] Work Phone: [phone] Clinical Lists Update: 01-06-2017 Albumin mass conc 4.3 g/dL Invalid Interpretation Code [employer] Work Phone: [phone] Alkaline phosphatase (ALP) 90 U/L Invalid Interpretation Code [employer] Work Phone: [phone] ALP enzyme act/vol (Bld) 90 U/L [employer] Work Phone: [phone] ALT enzyme act/vol 18 U/L Invalid Interpretation Code [employer] Work Phone: [phone] AST enzyme act/vol 17 U/L Invalid Interpretation Code [employer] Work Phone: [phone] Bilirubin mass conc 0.6 mg/dL Invalid Interpretation Code [employer] Work Phone: [phone] Bilirubin.direct mass conc mg/dL Invalid Interpretation Code [employer] Work Phone: [phone] Cholesterol in HDL mass conc 46 mg/dL Invalid Interpretation Code [employer] Work Phone: [phone] Cholesterol in LDL mass conc 97 mg/dL Invalid Interpretation Code [employer] Work Phone: [phone] Cholesterol in LDL/Cholesterol in HDL mass ratio 2.11 [employer] Work Phone: [phone] Cholesterol mass conc 174 mg/dL Invalid Interpretation Code [employer] Work Phone: [phone] Cholesterol.total/Ch olesterol in HDL mass ratio 3.78 {ratio} [employer] Work Phone: [phone] Lipoprotein.pre-beta mass conc 31 mg/dL Invalid Interpretation Code [employer] Work Phone: [phone] Protein mass conc 7.4 g/dL Invalid Interpretation Code [employer] Work Phone: [phone] Triglyceride mass conc 153 mg/dL High [employer] Work Phone: [phone] Clinical Lists Update: 12-20-2016 Left ventricular Ejection fraction 65 % [employer] Work Phone: [phone] 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 Tobacco smoking status NHIS Former smoker [employer] Work Phone: [phone] Tobacco use [facility] Former smoker Invalid Interpretation Code [facility] Phone: [phone] External Other: Preferred Me thod of Contacton 12-10-2016 methcontact secmsg [employer] Work Phone: [phone] Patient's prefered method of contact secmsg Invalid Interpretation Code [facility] Phone: [phone]) Office Visiton 12-10-2016 Dietary management education, guidance, and counseling (procedure) yes Invalid Interpretation Code [employer] Work Phone: [phone] Documentation of current medications (procedure) Done Invalid Interpretation Code [facility] Phone: [phone] Protein mass conc Done [employer] Work Phone: [phone] Replaced Document: [employer] E CG Observationson 12-10-2016 EKG QRS axis -68 deg [employer] Work Phone: [phone] electrocardiogram interpretation Atrial fibrillation -Left axis -anterior fascicular block. -Poor R-wave progression -nonspecific -consider old anterior infarct. ABNORMAL Invalid Interpretation Code [facility] Phone: [phone] GE use only - for [employer] import when terms are not otherwise specified 408 ms Invalid Interpretation Code [facility] Phone: [phone] P Holt 1 deg [employer] Work Phone: [phone] P wave axis, electrocardiogram 1 deg Invalid Interpretation Code [facility] Phone: [phone] MI Interval 0 ms [employer] Work Phone: [phone] MI interval, electrocardiogram 0 ms Invalid Interpretation Code [facility] Phone: [phone] Protein mass conc Atrial fibrillation -Left axis -anterior fascicular block. -Poor R-wave progression -nonspecific -consider old anterior infarct. ABNORMAL [employer] Work Phone: [phone] Pulse (Heart Rate) 84 /min Invalid Interpretation Code [facility] Phone: [phone] QRS axis, electrocardiogram -68 deg Invalid Interpretation Code [facility] Work Phone: [phone] QRS Duration 118 ms [employer] Work Phone: [phone] QRS duration, electrocardiogram 118 ms Invalid Interpretation Code [employer] Work Phone: [phone] QT Interval new path ms [facility] Work Phone: [phone] QT interval, electrocardiogram new path ms Invalid Interpretation Code [employer] Work Phone: [phone] QTc Campbell 408 ms [employer] Work Phone: [phone] T Holt 58 deg [employer] Work Phone: [phone] T wave axis, electrocardiogram 58 deg Invalid Interpretation Code [employer] Work Phone: [phone] 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 Cholesterol in HDL mass conc 44 mg/dL [employer] Work Phone: [phone] Cholesterol in LDL mass conc 101 mg/dL [employer] Work Phone: [phone] Cholesterol mass conc 175 mg/dL [employer] Work Phone: [phone] Hemoglobin A1c/Hemoglobin.total mass fraction (Bld) 6.4 % High [employer] Work Phone: [phone] Triglyceride mass conc 149 mg/dL [employer] Work Phone: [phone] Office Visiton 04-09-2010 Tobacco use [facility] never Invalid Interpretation Code [employer] Work Phone: [phone] Vital Signs Date Time Vital Sign Value Performing Clinician Jacy hammond 01-13-2025 08:27-0400 Body mass index (BMI) [Ratio] 29.07 kg/m2 Arely Mendozalogvinod OPTICAL MECHANIC APPRENTICE.CANDLES POURER Work Phone: [facility] 01-13-2025 08:27-0400 Body temperature 96.8 [degF] Arely Mendozalogvinod OPTICAL MECHANIC APPRENTICE.CANDLES POURER Work Phone: [facility] 01-13-2025 08:27-0400 Body weight 91.9 kg Arely Wilkins OPTICAL MECHANIC APPRENTICE.CANDLES POURER Work Phone: [facility] 01-13-2025 08:27-0400 Diastolic blood pressure 80 mm[Hg] Arely Podlogvinod OPTICAL MECHANIC APPRENTICE.CANDLES POURER Work Phone: [facility] 01-13-2025 08:27-0400 Heart rate 81 /min Arely Mendozalogvinod OPTICAL MECHANIC APPRENTICE.CANDLES POURER Work Phone: [facility] 01-13-2025 08:27-0400 SaO2% (BldA) [Mass fraction] 98 % Arely Mendozalogvinod OPTICAL MECHANIC APPRENTICE.CANDLES POURER Work Phone: [facility] 01-13-2025 08:27-0400 Systolic blood pressure 116 mm[Hg] Arely Podlogar OPTICAL MECHANIC APPRENTICE.CANDLES POURER Work Phone: [facility] 12-22-2024 13:57-0400 Body mass index (BMI) [Ratio] 28.84 kg/m2 Enrrique Carmona MD Work Phone: [facility] 12-22-2024 13:57-0400 Body weight 91.17 kg Enrrique Carmona MD Work Phone: [facility] 12-22-2024 13:57-0400 Diastolic blood pressure 72 mm[Hg] Enrrique Carmona MD Work Phone: [facility] 12-22-2024 13:57-0400 Heart rate 88 /min Enrrique Carmona MD Work Phone: [facility] 12-22-2024 13:57-0400 SaO2% (BldA) [Mass fraction] 96 % Enrrique Carmona MD Work Phone: [facility] 12-22-2024 13:57-0400 Systolic blood pressure 118 mm[Hg] Enrrique Carmona MD Work Phone: [facility] 12-09-2024 12:56-0400 Body height 172.[address] Enrrique Carmona MD Work Phone: [facility] 12-09-2024 12:56-0400 Body mass index (BMI) [Ratio] 30.9 kg/m2 Dr. Enrrique Carmona MD Work Phone: [facility] 12-09-2024 12:56-0400 Body weight 92.[address] Enrrique Carmona MD Work Phone: [facility] 12-09-2024 12:56-0400 Diastolic blood pressure 69 mm[Hg] Dr. Enrrique Carmona MD Work Phone: [facility] 12-09-2024 12:56-0400 Heart rate 56 /min Dr. Enrrique Carmona MD Work Phone: [facility] 12-09-2024 12:56-0400 Respiratory rate 18 /min Dr. Enrrique Carmona MD Work Phone: [phone] [place] [address] 12-09-2024 12:56-0400 Systolic blood pressure 136 mm[Hg] Dr. Enrrique Carmona MD Work Phone: [facility] 09-16-2024 11:35-0400 Body mass index (BMI) [Ratio] 28.84 kg/m2 Obie Marcelo MD Work Phone: [facility] 09-16-2024 11:35-0400 Body weight 91.17 kg Obie Marcelo MD Work Phone: [facility] 09-16-2024 11:35-0400 Diastolic blood pressure 74 mm[Hg] Obie Marcelo MD Work Phone: [facility] 09-16-2024 11:35-0400 Heart rate 68 /min Obie Marcelo MD Work Phone: [facility] 09-16-2024 11:35-0400 SaO2% (BldA) [Mass fraction] 97 % Obie Marcelo MD Work Phone: [facility] 09-16-2024 11:35-0400 Systolic blood pressure 124 mm[Hg] Obie Marcelo MD Work Phone: [facility] 07-05-2024 13:50-0500 Body mass index (BMI) [Ratio] 27.12 kg/m2 Obie Marcelo MD Work Phone: [facility] 07-05-2024 13:50-0500 Body temperature 97.59 [degF] Obie Marcelo MD Work Phone: [facility] 07-05-2024 13:50-0500 Body weight 85.73 kg Obie Marcelo MD Work Phone: [facility] 07-05-2024 13:50-0500 Heart rate 75 /min Obie Marcelo MD Work Phone: [facility] 07-05-2024 13:50-0500 SaO2% (BldA) [Mass fraction] 98 % Obie Marcelo MD Work Phone: [facility] 06-18-2024 11:31-0500 Body mass index (BMI) [Ratio] 27.69 kg/m2 Vianney Suppan OPTICAL MECHANIC APPRENTICE.CANDLES POURER Work Phone: [facility] 06-18-2024 11:31-0500 Body temperature 97.3 [degF] Vianney Suppan OPTICAL MECHANIC APPRENTICE.CANDLES POURER Work Phone: [facility] 06-18-2024 11:31-0500 Body weight 87.54 kg Vianney Suppan OPTICAL MECHANIC APPRENTICE.CANDLES POURER Work Phone: [facility] 06-18-2024 11:31-0500 Diastolic blood pressure 54 mm[Hg] Vianney Suppan OPTICAL MECHANIC APPRENTICE.CANDLES POURER Work Phone: [facility] 06-18-2024 11:31-0500 Heart rate 63 /min Vianney Suppan OPTICAL MECHANIC APPRENTICE.CANDLES POURER Work Phone: [facility] 06-18-2024 11:31-0500 SaO2% (BldA) [Mass fraction] 98 % Vianney Suppan OPTICAL MECHANIC APPRENTICE.CANDLES POURER Work Phone: [facility] 06-18-2024 11:31-0500 Systolic blood pressure 110 mm[Hg] Vianney Suppa n OPTICAL MECHANIC APPRENTICE.CANDLES POURER Work Phone: [facility] 05-21-2024 11:32-0500 Body height 177.8 cm Enrrique Carmona MD Work Phone: [facility] 05-21-2024 11:32-0500 Body mass index (BMI) [Ratio] 27.33 kg/m2 Enrrique Carmona MD Work Phone: [facility] 05-21-2024 11:32-0500 Body weight 86.4 kg Enrrique Carmona MD Work Phone: [facility] 05-21-2024 11:32-0500 Diastolic blood pressure 83 mm[Hg] Enrrique Carmona MD Work Phone: [facility] 05-21-2024 11:32-0500 Heart rate 74 /min Enrrique Carmona MD Work Phone: [facility] 05-21-2024 11:32-0500 Systolic blood pressure 146 mm[Hg] Enrrique Carmona MD Work Phone: [facility] 04-07-2024 14:40-0400 Body mass index (BMI) [Ratio] 25.83 kg/m2 Isabel Celis MD Work Phone: [facility] 04-07-2024 14:40-0400 Body weight 81.65 kg Isabel Celis MD Work Phone: [facility] 04-07-2024 14:40-0400 Diastolic blood pressure 80 mm[Hg] Isabel Celis MD Work Phone: [facility] 04-07-2024 14:40-0400 Heart rate 88 /min Isabel Celis MD Work Phone: [facility] 04-07-2024 14:40-0400 Respiratory rate 16 /min Isabel Celis MD Work Phone: [facility] 04-07-2024 14:40-0400 Systolic blood pressure 124 mm[Hg] Isabel Celis MD Work Phone: [facility] 03-19-2024 13:39-0400 Diastolic blood pressure 40 mm[Hg] Vianney Sahu OPTICAL MECHANIC APPRENTICE.CANDLES POURER Work Phone: [facility] 03-19-2024 13:39-0400 Systolic blood pressure 90 mm[Hg] Vianney Suppa n OPTICAL MECHANIC APPRENTICE.CANDLES POURER Work Phone: [facility] 03-19-2024 13:21-0400 Body mass index (BMI) [Ratio] 25.97 kg/m2 Vianney Suppan OPTICAL MECHANIC APPRENTICE.CANDLES POURER Work Phone: [facility] 03-19-2024 13:21-0400 Body temperature 97.5 [degF] Vianney Suppan OPTICAL MECHANIC APPRENTICE.CANDLES POURER Work Phone: [facility] 03-19-2024 13:21-0400 Body weight 82.1 kg Vianney Suppan OPTICAL MECHANIC APPRENTICE.CANDLES POURER Work Phone: [facility] 03-19-2024 13:21-0400 Heart rate 94 /min Vianney Suppan OPTICAL MECHANIC APPRENTICE.CANDLES POURER Work Phone: [facility] 03-19-2024 13:21-0400 Respiratory rate 16 /min Vianney Suppan OPTICAL MECHANIC APPRENTICE.CANDLES POURER Work Phone: [facility] 03-19-2024 13:21-0400 SaO2% (BldA) [Mass fraction] 97 % Vianney Suppan OPTICAL MECHANIC APPRENTICE.CANDLES POURER Work Phone: [facility] 03-15-2024 13:40-0400 Body mass index (BMI) [Ratio] 25.54 kg/m2 Vianney Suppan OPTICAL MECHANIC APPRENTICE.CANDLES POURER Work Phone: [facility] 03-15-2024 13:40-0400 Body temperature 97.81 [degF] Vianney Suppan OPTICAL MECHANIC APPRENTICE.CANDLES POURER Work Phone: [facility] 03-15-2024 13:40-0400 Body weight 80.74 kg Vianney Suppan OPTICAL MECHANIC APPRENTICE.C[employer]LES POURER Work Phone: [facility] 03-15-2024 13:40-0400 Diastolic blood pressure 60 mm[Hg] Vianney Suppan OPTICAL MECHANIC APPRENTICE.C[employer]LES POURER Work Phone: [facility] 03-15-2024 13:40-0400 Heart rate 90 /min Vianney Suppan OPTICAL MECHANIC APPRENTICE.CANDLES POURER Work Phone: [facility] 03-15-2024 13:40-0400 SaO2% (BldA) [Mass fraction] 98 % Vianney Sahu OPTICAL MECHANIC APPRENTICE.CANDLES POURER Work Phone: [facility] 03-15-2024 13:40-0400 Systolic blood pressure 132 mm[Hg] Vianney galicia OPTICAL MECHANIC APPRENTICE.CANDLES POURER Work Phone: [facility] 03-05-2024 22:48-0400 SaO2% (BldA) [Mass fraction] 99 % ENRRIQUE KRISTINE [facility] Comment on above: Order Comment: Specimen Type: ARTERIAL B LOOD SPECIMENOrdering Facility: [facility] Address: [address] [place] [address] Performed By: #### A LLMG ####[facility] [id number] [address] 03-05-2024 18:48-0400 SaO2% (BldA) [Mass fraction] 99 % ENRRIQUE [facility] Comment on above: Order Comment: Specimen Type: ARTERIAL B LOOD SPECIMENOrdering Facility: [facility] Address: [address] [place] [address] Performed By: #### A LLMG ####[facility] [id number] [address] 03-05-2024 17:27-0400 SaO2% (BldA) [Mass fraction] 99 % ENRRIQUE [facility] Comment on above: Order Comment: Specimen Type: ARTERIAL B LOOD SPECIMENOrdering Facility: [facility] Address: [address] [place] [address] Performed By: #### A LLMG ####[facility] [id number] [place] [id number] [facility] 03-03-2024 07:59-0400 Body height 172.7 cm [facility] 1 Work Phone: [facility] 03-03-2024 07:59-0400 Body mass index (BMI) [Ratio] 28.74 kg/m2 Pacc 1 Work Phone: [facility] 03-03-2024 07:59-0400 Body temperature 97 [degF] Pacc 1 Work Phone: [facility] 03-03-2024 07:59-0400 Body weight 85.73 kg Pacc 1 Work Phone: [facility] 03-03-2024 07:59-0400 Diastolic blood pressure 72 mm[Hg] Pacc 1 Work Phone: [facility] 03-03-2024 07:59-0400 Heart rate 78 /min Pacc 1 Work Phone: [facility] 03-03-2024 07:59-0400 Respiratory rate 16 /min Pacc 1 Work Phone: [facility] 03-03-2024 07:59-0400 SaO2% (BldA) [Mass fraction] 97 % Pacc 1 Work Phone: [facility] 03-03-2024 07:59-0400 Systolic blood pressure 120 mm[Hg] Pacc 1 Work Phone: [facility] 03-02-2024 15:37-0400 Diastolic blood pressure 78 mm[Hg] Vianney Suppan OPTICAL MECHANIC APPRENTICE.CANDLES POURER Work Phone: [facility] 03-02-2024 15:37-0400 Systolic blood pressure 138 mm[Hg] Vianney Suppa n OPTICAL MECHANIC APPRENTICE.CANDLES POURER Work Phone: [facility] 03-02-2024 15:12-0400 Body mass index (BMI) [Ratio] 29.17 kg/m2 Vianney Suppan OPTICAL MECHANIC APPRENTICE.CANDLES POURER Work Phone: [facility] 03-02-2024 15:12-0400 Body weight 87.09 kg Vianney Suppan OPTICAL MECHANIC APPRENTICE.CANDLES POURER Work Phone: [facility] 03-02-2024 15:12-0400 Heart rate 68 /min Vianney Suppan OPTICAL MECHANIC APPRENTICE.CANDLES POURER Work Phone: [facility] 03-02-2024 15:12-0400 Respiratory rate 18 /min Vianney Suppan OPTICAL MECHANIC APPRENTICE.CANDLES POURER Work Phone: [facility] 03-02-2024 15:12-0400 SaO2% (BldA) [Mass fraction] 96 % Vianney Suppan OPTICAL MECHANIC APPRENTICE.CANDLES POURER Work Phone: [facility] 02-10-2024 16:07-0400 Body mass index (BMI) [Ratio] 27.26 kg/m2 Vianney Suppan OPTICAL MECHANIC APPRENTICE.CANDLES POURER Work Phone: [facility] 02-10-2024 16:07-0400 Body weight 86.18 kg Vianney Suppan OPTICAL MECHANIC APPRENTICE.CANDLES POURER Work Phone: [facility] 02-10-2024 16:07-0400 Diastolic blood pressure 68 mm[Hg] Vianney Suppan OPTICAL MECHANIC APPRENTICE.CANDLES POURER Work Phone: [facility] 02-10-2024 16:07-0400 Heart rate 86 /min Vianney Suppan OPTICAL MECHANIC APPRENTICE.CANDLES POURER Work Phone: [facility] 02-10-2024 16:07-0400 SaO2% (BldA) [Mass fraction] 98 % Vianney Suppan OPTICAL MECHANIC APPRENTICE.CANDLES POURER Work Phone: [facility] 02-10-2024 16:07-0400 Systolic blood pressure 134 mm[Hg] Vianney Suppa n OPTICAL MECHANIC APPRENTICE.CANDLES POURER Work Phone: [facility] 01-23-2024 09:01-0400 Body mass index (BMI) [Ratio] 27.84 kg/m2 Marcel Roberts MD Work Phone: [facility] 01-23-2024 09:01-0400 Body weight 88 kg Marcel Roberts MD Work Phone: [facility] 01-23-2024 09:01-0400 Diastolic blood pressure 81 mm[Hg] Marcel Roberts MD Work Phone: [facility] 01-23-2024 09:01-0400 Heart rate 104 /min Marcel Roberts MD Work Phone: [facility] 01-23-2024 09:01-0400 Systolic blood pressure 138 mm[Hg] Marcel breaux MD Work Phone: [facility] 01-16-2024 13:25-0400 Body height 177.8 cm Enrrique Carmona MD Work Phone: [facility] 01-16-2024 13:25-0400 Body mass index (BMI) [Ratio] 27.69 kg/m2 Enrrique Carmona MD Work Phone: [facility] 01-16-2024 13:25-0400 Body weight 87.54 kg Enrrique Carmona MD Work Phone: [facility] 01-16-2024 13:25-0400 Diastolic blood pressure 62 mm[Hg] Enrrique Carmona MD Work Phone: [facility] 01-16-2024 13:25-0400 Heart rate 96 /min Enrrique Carmona MD Work Phone: [facility] 01-16-2024 13:25-0400 SaO2% (BldA) [Mass fraction] 97 % Enrrique Carmona MD Work Phone: [facility] 01-16-2024 13:25-0400 Systolic blood pressure 118 mm[Hg] Enrrique Carmona MD Work Phone: [facility] 01-05-2024 17:08-0400 Body mass index (BMI) [Ratio] 28.12 kg/m2 Enrrique Carmona MD Work Phone: [facility] 01-05-2024 17:08-0400 Body weight 88.91 kg Enrrique Carmona MD Work Phone: [facility] 01-05-2024 17:08-0400 Diastolic blood pressure 82 mm[Hg] Enrrique Carmona MD Work Phone: [facility] 01-05-2024 17:08-0400 Heart rate 91 /min Enrrique Carmona MD Work Phone: [facility] 01-05-2024 17:08-0400 SaO2% (BldA) [Mass fraction] 96 % Enrrique Carmona MD Work Phone: [facility] 01-05-2024 17:08-0400 Systolic blood pressure 136 mm[Hg] Enrrique Carmona MD Work Phone: [facility] 10-31-2023 12:58-0400 Body mass index (BMI) [Ratio] 29.13 kg/m2 Vianney Suppan OPTICAL MECHANIC APPRENTICE.ROAD CLEANER Work Phone: [facility] 10-31-2023 12:58-0400 Body weight 92.08 kg Vianney Suppan OPTICAL MECHANIC APPRENTICE.ROAD CLEANER Work Phone: [facility] 10-31-2023 12:58-0400 Diastolic blood pressure 62 mm[Hg] Vianney Suppan OPTICAL MECHANIC APPRENTICE.ROAD CLEANER Work Phone: [facility] 10-31-2023 12:58-0400 Heart rate 89 /min Vianney Suppan OPTICAL MECHANIC APPRENTICE.ROAD CLEANER Work Phone: [facility] 10-31-2023 12:58-0400 Respiratory rate 16 /min Vianney Suppan OPTICAL MECHANIC APPRENTICE.ROAD CLEANER Work Phone: [facility] 10-31-2023 12:58-0400 SaO2% (BldA) [Mass fraction] 96 % Vianney Suppan OPTICAL MECHANIC APPRENTICE.ROAD CLEANER Work Phone: [facility] 10-31-2023 12:58-0400 Systolic blood pressure 130 mm[Hg] Vianney Suppa n OPTICAL MECHANIC APPRENTICE.ROAD CLEANER Work Phone: [facility] 10-03-2023 13:48-0400 Body height 177.8 cm Enrrique Carmona MD Work Phone: [facility] 10-03-2023 13:48-0400 Body weight 91.63 kg Enrrique Carmona MD Work Phone: [facility] 10-03-2023 13:48-0400 Diastolic blood pressure 58 mm[Hg] Enrrique Carmona MD Work Phone: [facility] 10-03-2023 13:48-0400 Heart rate 75 /min Enrrique Carmona MD Work Phone: [facility] 10-03-2023 13:48-0400 SaO2% (BldA) [Mass fraction] 98 % Enrrique Carmona MD Work Phone: [facility] 10-03-2023 13:48-0400 Systolic blood pressure 132 mm[Hg] Enrrique Carmona MD Work Phone: [facility] 04-24-2023 01:03-0400 Heart rate 96 /min [facility] 04-24-2023 01:03-0400 Respiratory rate 16 /min [facility] 04-24-2023 01:03-0400 SaO2% (BldA) [Mass fraction] 97 % [facility] 04-23-2023 23:09-0400 Body height 172.72 cm [facility] 04-23-2023 23:09-0400 Body mass index (BMI) [Ratio] 31.3 kg/m2 [facility] 04-23-2023 23:09-0400 Body temperature 97.9 [degF] [facility] 04-23-2023 23:09-0400 Body weight 93.48 kg [facility] 04-23-2023 23:09-0400 Diastolic blood pressure 99 mm[Hg] [facility] 04-23-2023 23:09-0400 Systolic blood pressure 178 mm[Hg] [facility] 04-02-2023 10:31-0400 Body weight 92.08 kg Enrrique Carmona MD Work Phone: [facility] 04-02-2023 10:31-0400 Diastolic blood pressure 78 mm[Hg] Enrrique Carmona MD Work Phone: [facility] 04-02-2023 10:31-0400 Heart rate 73 /min Enrrique Carmona MD Work Phone: [facility] 04-02-2023 10:31-0400 SaO2% (BldA) [Mass fraction] 96 % Enrrique Carmona MD Work Phone: [facility] 10-11-2023 10:31-0400 Systolic blood pressure 121 mm[Hg] Enrrique Carmona MD Work Phone: [facility] 12-26-2022 11:19-0400 Body temperature 97.11 [degF] Melissa Shelton OPTICAL MECHANIC APPRENTICE.CANDLES POURER Work Phone: [facility] 12-26-2022 11:19-0400 Body weight 95.53 kg Melissa Shelton OPTICAL MECHANIC APPRENTICE.CANDLES POURER Work Phone: [facility] 12-26-2022 11:19-0400 Diastolic blood pressure 80 mm[Hg] Melissa Shelton OPTICAL MECHANIC APPRENTICE.CANDLES POURER Work Phone: [facility] 12-26-2022 11:19-0400 Heart rate 96 /min Melissa Shelton OPTICAL MECHANIC APPRENTICE.CANDLES POURER Work Phone: [facility] 12-26-2022 11:19-0400 Respiratory rate 18 /min Melissa Shelton OPTICAL MECHANIC APPRENTICE.CANDLES POURER Work Phone: [facility] 12-26-2022 11:19-0400 SaO2% (BldA) [Mass fraction] 96 % Melissa Shelton OPTICAL MECHANIC APPRENTICE.CANDLES POURER Work Phone: [facility] 12-26-2022 11:19-0400 Systolic blood pressure 122 mm[Hg] Melissa Shelton OPTICAL MECHANIC APPRENTICE.CANDLES POURER Work Phone: [facility] 09-26-2022 10:46-0400 Body weight 96.07 kg Enrrique Carmona MD Work Phone: [facility] 09-26-2022 10:46-0400 Diastolic blood pressure 68 mm[Hg] Enrrique Carmona MD Work Phone: [facility] 09-26-2022 10:46-0400 Heart rate 80 /min Enrrique Carmona MD Work Phone: [facility] 09-26-2022 10:46-0400 Respiratory rate 16 /min Enrrique Carmona MD Work Phone: [facility] 09-26-2022 10:46-0400 SaO2% (BldA) [Mass fraction] 97 % Enrrique Carmona MD Work Phone: [facility] 09-26-2022 10:46-0400 Systolic blood pressure 124 mm[Hg] Enrriqeu Carmona MD Work Phone: [facility] 05-31-2022 14:05-0500 Body height 177.[address] Enrrique Carmona Work Phone: [facility] Work Phone: 05-31-2022 14:05-0500 Body mass index (BMI) [Ratio] 30.2 kg/m2 Dr. Enrrique Carmona Work Phone: [facility] Work Phone: 05-31-2022 14:05-0500 Body weight 95.[address] Enrrique Carmona Work Phone: [facility] Work Phone: 05-31-2022 14:05-0500 Diastolic blood pressure 82 mm[Hg] Dr. Enrrique Carmona Work Phone: [facility] Work Phone: 05-31-2022 14:05-0500 Heart rate 86 /min Dr. Enrrique Carmona Work Phone: [facility] Work Phone: 05-31-2022 14:05-0500 Respiratory rate 18 /min Dr. Enrrique Carmona Work Phone: [facility] Work Phone: 05-31-2022 14:05-0500 SaO2% (BldA) [Mass fraction] 99 % Dr. Enrrique Carmona Work Phone: [facility] Work Phone: 05-31-2022 14:05-0500 Systolic blood pressure 136 mm[Hg] Dr. Enrrique Carmona Work Phone: [facility] Work Phone: 03-31-2022 21:39-0400 Diastolic blood pressure 78 mm[Hg] Dr. Enrrique Carmona Work Phone: [facility] Work Phone: 03-31-2022 21:39-0400 Heart rate 87 /min Dr. Enrrique Carmona Work Phone: [facility] Work Phone: 03-31-2022 21:39-0400 Respiratory rate 15 /min Dr. Enrrique Carmona Work Phone: [facility] Work Phone: 03-31-2022 21:39-0400 SaO2% (BldA) [Mass fraction] 98 % Dr. Enrrique Carmona Work Phone: [facility] Work Phone: 03-31-2022 21:39-0400 Systolic blood pressure 128 mm[Hg] Dr. Enrrique Carmona Work Phone: [facility] Work Phone: 03-31-2022 20:01-0400 Body temperature 97.1 [degF] Dr. Enrrique Carmona Work Phone: [facility] Work Phone: 03-31-2022 19:51-0400 Body mass index (BMI) [Ratio] 30.8 kg/m2 Dr. Enrrique Carmona Work Phone: [facility] Work Phone: 03-31-2022 19:51-0400 Body weight 97.[address] Enrrique Carmona Work Phone: [facility] Work Phone: 03-28-2022 10:40-0400 Body weight 98.88 kg Enrrique Carmona MD Work Phone: [facility] 03-28-2022 10:40-0400 Diastolic blood pressure 70 mm[Hg] Enrrique Carmona MD Work Phone: [facility] 03-28-2022 10:40-0400 Heart rate 89 /min Enrrique Carmona MD Work Phone: [facility] 03-28-2022 10:40-0400 Respiratory rate 16 /min Enrrique Carmona MD Work Phone: [facility] 03-28-2022 10:40-0400 SaO2% (BldA) [Mass fraction] 98 % Enrrique Carmona MD Work Phone: [facility] 03-28-2022 10:40-0400 Systolic blood pressure 142 mm[Hg] Enrrique Carmona MD Work Phone: [facility] 03-05-2022 19:01-0400 Body temperature 97.9 [degF] Brandy Praisler-Wood OPTICAL MECHANIC APPRENTICE.C[employer]LES POURER Work Phone: [facility] 03-05-2022 19:01-0400 Body weight 99.79 kg Brandy Praisler-Wood OPTICAL MECHANIC APPRENTICE.CANDLES POURER Work Phone: [facility] 03-05-2022 19:01-0400 Diastolic blood pressure 80 mm[Hg] Brandy Praisler-Wood OPTICAL MECHANIC APPRENTICE.CANDLES POURER Work Phone: [facility] 03-05-2022 19:01-0400 Heart rate 86 /min Brandy Praisler-Wood OPTICAL MECHANIC APPRENTICE.CANDLES POURER Work Phone: [facility] 03-05-2022 19:01-0400 Respiratory rate 16 /min Brandy Praisler-Wood OPTICAL MECHANIC APPRENTICE.CANDLES POURER Work Phone: [facility] 03-05-2022 19:01-0400 SaO2% (BldA) [Mass fraction] 97 % Brandy Praisler-Wood OPTICAL MECHANIC APPRENTICE.CANDLES POURER Work Phone: [facility] 03-05-2022 19:01-0400 Systolic blood pressure 136 mm[Hg] Brandy Praisler-W ood OPTICAL MECHANIC APPRENTICE.CANDLES POURER Work Phone: [facility] 09-24-2021 10:20-0400 Body weight 98.88 kg Enrrique Carmona MD Work Phone: [facility] 09-24-2021 10:20-0400 Diastolic blood pressure 82 mm[Hg] Enrrique Carmona MD Work Phone: [facility] 09-24-2021 10:20-0400 Heart rate 92 /min Enrrique Carmona MD Work Phone: [facility] 09-24-2021 10:20-0400 Systolic blood pressure 122 mm[Hg] Enrrique Carmona MD Work Phone: [facility] 01-10-2017 15:21-0400 Heart rate 87 /min [facility] Work Phone: 01-10-2017 13:39-0400 BMI (Body Mass Index) 31.13 kg/m2 [facility] Work Phone: 01-10-2017 13:39-0400 BP Diastolic 80 mm[Hg] [facility] Work Phone: 01-10-2017 13:39-0400 BP Systolic 160 mm[Hg] [facility] Work Phone: 01-10-2017 13:39-0400 Height 177.8 cm [facility] Work Phone: 01-10-2017 13:39-0400 Pulse (Heart Rate) 87 /min [facility] Work Phone: 01-10-2017 13:39-0400 Respiratory Rate 20 /min [facility] Work Phone: 01-10-2017 13:39-0400 Weight 98.43 kg [facility] Work Phone: 12-25-2016 09:33-0400 BP Diastolic 80 mm[Hg] [facility] Work Phone: 12-25-2016 09:33-0400 BP Systolic 130 mm[Hg] [facility] Work Phone: 12-25-2016 09:33-0400 Pulse (Heart Rate) 80 /min [facility] Work Phone: 12-25-2016 09:33-0400 Respiratory Rate 20 /min Ruth Patrick PA-C [facility] Work Phone: 12-10-2016 15:22-0400 Heart rate 84 /min [facility] Work Phone: 12-10-2016 14:50-0400 BMI (Body Mass Index) 31.42 kg/m2 [facility] Work Phone: 12-10-2016 14:50-0400 BP Diastolic 80 mm[Hg] [facility] Work Phone: 12-10-2016 14:50-0400 BP Systolic 176 mm[Hg] [facility] Work Phone: 12-10-2016 14:50-0400 Height 177.8 cm [facility] Work Phone: 12-10-2016 14:50-0400 Pulse (Heart Rate) 86 /min [facility] Work Phone: 12-10-2016 14:50-0400 Respiratory Rate 18 /min [facility] Work Phone: 12-10-2016 14:50-0400 Weight 99.34 kg [facility] Work Phone: 04-09-2010 09:28-0400 Body Temperature 97.9 [degF] Marylin Mcdaniels RN [facility] Work Phone: 04-09-2010 09:28-0400 BP Diastolic 84 mm[Hg] Marylin Mcdaniels RN [facility] Work Phone: 04-09-2010 09:28-0400 BP Systolic 140 mm[Hg] Marylin Mcdaniels RN [facility] Work Phone: 04-09-2010 09:28-0400 Height 177.8 cm Marylin Mcdaniels RN [facility] Work Phone: 04-09-2010 09:28-0400 Pulse (Heart Rate) 56 /min Marylin Mcdaniels RN [facility] Work Phone: 04-09-2010 09: Weight 97.52 kg Marylin Mcdaniels RN [facility] Work Phone: Encounters Encounter Date Encounter Type Care Provider Facility Start: 01-13-2025 End: 01-13-2025 Telephone encounter Arely Wilkins APRN.CANDLES POURER Work Phone: [facility] [place] Start: 01-13-2025 End: 01-13-2025 Patient encounter procedure Arely Wilkins OPTICAL MECHANIC APPRENTICE.CANDLES POURER Work Phone: [facility] [place] Comment on above: Pain of toe of left foot (Primary Dx) Start: 01-07-2025 End: 01-07-2025 ambulatory Enrrique Carmona MD Work Phone: [facility] [place] Comment on above: Xarelto Start: 12-27-2024 End: 12-28-2024 ambulatory Enrrique Carmona MD Work Phone: [facility] [place] Comment on above: Metformin and Atorva statin Start: 12-22-2024 End: 12-23-2024 ambulatory [facility] Facility:[facility] Start: 12-22-2024 End: 12-22-2024 Patient encounter procedure Enrrique Carmona MD Work Phone: [facility] [place] Comment on above: Essential hypertensi on (Primary Dx); Paroxysmal atrial fibrillation (HCC); Ocular migraine; Type 2 diabetes mellitus without complication, without long-term current use of insulin (HCC); Left adrenal mass (HCC); Degeneration of intervertebral disc of lumbar region, unspecified whether pain present; Chronic depression; Anxiety state; Bilateral carotid artery stenosis; Disorder of bone; Depression, major, single episode, moderate (HCC); Congestive heart failure, unspecified HF chronicity, unspecified heart failure type (HCC) Start: 12-22-2024 End: 12-22-2024 ambulatory [facility] Facility:[facility] Start: 12-21-2024 Non-patient / Non-visit Dr. Meir coffman MD -[facility] Start: 12-21-2024 End: 12-21-[address] Enrrique Carmona MD Work Phone: -Cardiovascular Services Start: 12-21-2024 End: 12-21-2024 Patient encounter procedure Rosalino HAZEL -Cardiovascular Services Work Phone: Start: 12-21-2024 End: 12-21-2024 ambulatory [facility] Facility:[facility] Start: 12-09-2024 End: 12-09-2024 Patient encounter procedure Rosalino HAZEL -[facility] Work Phone: Start: 12-09-2024 End: 12-09-[address] Enrrique Carmona MD Work Phone: [facility] Work Phone: Start: 10-14-2024 End: 12-14-2024 Follow-up encounter Obie Marcelo MD Work Phone: Endocrinology Start: 09-20-2024 End: 09-20-2024 ambulatory [facility] Facility:[facility] Start: 09-16-2024 End: 09-16-2024 [facility] Start: 09-16-2024 End: 09-16-2024 Patient encounter procedure Obie Marcelo MD Work Phone: Endocrinology Comment on above: Fatigue, unspecified type (Primary Dx); Abnormal weight gain; ACTH elevation Start: 09-07-2024 End: 09-07-2024 ambulatory [facility] Facility:[facility] Start: 09-07-2024 End: 09-07-2024 Subsequent hospital visit by physician [facility] (I-Stat) Work Phone: Cat Scan Comment on above: 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] Start: 09-07-2024 End: 09-07-2024 ambulatory [facility] Facility:[facility] Start: 09-07-2024 End: 11-07-2024 Follow-up encounter Savannah Suresh RN Endocrinology Start: 08-25-2024 End: 08-26-2024 ambulatory Obie Marcelo MD Work Phone: Endocrinology Comment on above: Adrenal Gland/mass r emoval Start: 08-07-2024 End: 08-09-2024 Refill Enrrique Carmona MD Work Phone: [facility] [place] Comment on above: Refill Request Start: 07-24-2024 End: 07-26-2024 Refill Enrrique Carmona MD Work Phone: [facility] [place] Comment on above: Refill Request Start: 07-06-2024 End: 07-06-2024 ambulatory [facility] Facility:[facility] Start: 07-05-2024 End: 07-05-2024 Patient encounter procedure Obie Marcelo MD Work Phone: Endocrinology Comment on above: Dizziness; Lightheadedness; H/O total adrenalectomy (HCC); Fatigue, unspecified type Start: 07-05-2024 End: 07-05-2024 [facility] Facility:[facility] Start: 06-22-2024 End: 06-22-2024 Telephone encounter Enrrique Carmona MD Work Phone: [facility] [place] Start: 06-18-2024 End: 06-18-2024 [facility] Facility:[facility] Start: 06-18-2024 End: 06-18-2024 Office outpatient visit 15 minutes Vianney Sahu APRN.CNP Work Phone: [facility] [place] Comment on above: Abnormal stool test (Primary Dx); Hyperkalemia; Prediabetes Start: 06-10-2024 End: 06-10-2024 ambulatory [facility] Facility:[facility] Start: 06-03-2024 End: 06-03-2024 Telephone encounter Isabel Celis MD Work Phone: Internal Medicine [place] Start: 06-02-2024 End: 06-28-2024 Telephone encounter Enrrique Carmona MD Work Phone: [facility] [place] Comment on above: Results Start: 06-01-2024 End: 06-01-2024 ambulatory ENRRIQUE CARMONA Facility:[facility] Start: 05-28-2024 ambulatory ISABEL CELIS Facility:[facility] Start: 05-28-2024 End: 05-28-2024 Subsequent hospital visit by physician [facility] (I-Stat/Lg Bore/1.5t) [facility] Comment on above: Cognitive impairment , mild, so stated [G31.84] Start: 05-24-2024 End: 05-24-2024 Telephone encounter Enrrique Carmona MD Work Phone: [facility] Comment on above: Results Start: 05-21-2024 End: 05-21-2024 ambulatory ENRRIQUE Raquel KRISTINE Facility:[facility] Start: 05-21-2024 End: 05-21-2024 Patient encounter procedure Enrrique Carmona MD Work Phone: [facility] Comment on above: Essential hypertensi on (Primary Dx); Mixed hyperlipidemia; Paroxysmal atrial fibrillation (HCC); Type 2 diabetes mellitus without complication, without long-term current use of insulin (HCC); 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); Left adrenal mass (HCC); Dizziness; Chronic depression; Anxiety state; Bilateral carotid artery stenosis; Lightheadedness; H/O total adrenalectomy (HCC); Fatigue, unspecified type; Major depressive disorder with current active episode, unspecified depression episode severity, unspecified whether recurrent Start: 05-13-2024 End: 05-13-2024 ambulatory Enrrique Carmona MD Work Phone: [facility] Comment on above: BP medication Start: 04-13-2024 End: 04-13-2024 ambulatory Isabel Celis MD Work Phone: Geriatrics Comment on above: [place] Start: 04-08-2024 End: 04-09-2024 Refill Isabel Celis MD Work Phone: Geriatrics Comment on above: Med Change Request Start: 04-07-2024 End: 04-07-2024 Office consultation new/estab patient 80 min Isabel Celis MD Work Phone: Geriatrics Comment on above: Severe major depress ion (HCC) (Primary Dx); Major depressive disorder with current active episode, unspecified depression episode severity, unspecified whether recurrent; Cognitive impairment, mild, so stated; Insomnia, unspecified type; Abnormal grief reaction Start: 04-07-2024 End: 04-07-2024 ambulatory [facility] Facility:[facility] Start: 03-30-2024 End: 03-30-2024 ambulatory Loli Arredondo RN Work Phone: [facility] Start: 03-30-2024 End: 03-30-2024 Telephone follow-up Loli Arredondo RN Work Phone: [facility] Comment on above: Transition Of Care ( TCM Follow Up/) Weekly phone contact (Recurring) for Transitional Care Management Start: 03-25-2024 End: 03-25-2024 Admission to same day surgery center Marcel Roberts MD Work Phone: Endocrine Surgery Comment on above: Adrenal mass greater than 4 cm in diameter (HCC) (Primary Dx) Start: 03-25-2024 End: 03-25-2024 Telemedicine consultation with patient Marcel Roberts MD Work Phone: Endocrine Surgery Start: 03-25-2024 End: 03-25-2024 ambulatory Enrrique Carmona MD Work Phone: [facility] Comment on above: Allied Health Visit (Medication Adherence Outreach/) Start: 03-22-2024 End: 03-23-2024 Refill Enrrique Carmona MD Work Phone: Family Medicine [place] Comment on above: Refill Request Start: 03-19-2024 End: 03-19-2024 Office outpatient visit 15 minutes Vianney Sahu APRN.CNP Work Phone: Family Medicine [place] Comment on above: Essential hypertensi on (Primary Dx); Major depressive disorder with current active episode, unspecified depression episode severity, unspecified whether recurrent; Chronic insomnia; 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) Start: 03-19-2024 End: 03-19-2024 ambulatory ENRRIQUE Raquel CARMONA Facility:[facility] Start: 03-17-2024 End: 03-17-2024 ambulatory Loli Arredondo RN Work Phone: [facility] Start: 03-17-2024 End: 03-17-2024 Telephone follow-up Loli Arredondo RN Work Phone: [facility] Comment on above: Transition Of Care ( TCM Follow Up/) Weekly phone contact (Recurring) for Transitional Care Management Start: 03-15-2024 End: 03-15-2024 Admission to same day surgery center Marcel Roberts MD Work Phone: Endocrine Surgery Comment on above: Staple removal Start: 03-15-2024 End: 03-15-2024 Telephone encounter Ashley Portillo [facility] Work Phone: Psychology Comment on above: bh consult Start: 03-15-2024 End: 03-15-2024 ambulatory Marcel Roberts MD Work Phone: Endocrine Surgery Comment on above: KATELYN REMOVAL Start: 03-15-2024 End: 03-15-2024 Office outpatient visit 25 minutes Vianney Sahu APRN.CNP Work Phone: [facility] Comment on above: Major depressive dis order with current active episode, unspecified depression episode severity, unspecified whether recurrent (Primary Dx); Essential hypertension; Mixed hyperlipidemia; Paroxysmal atrial fibrillation (HCC); Malnutrition of moderate degree (HCC); Type 2 diabetes mellitus without complication, unspecified whether long term care pharmacist insulin use (HCC); 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); Dizziness; Chronic insomnia; Congestive heart failure, unspecified HF chronicity, unspecified heart failure type (HCC) Start: 03-10-2024 End: 03-10-2024 Patient Outreach Loli Arredondo RN Work Phone: [facility] Comment on above: Transition Of Care ( TCM Initial Hospital Discharge 03/09/2024) Initial phone contact for Transitional Care Management Breathing Problem Pics of incision Start: 03-09-2024 End: 03-09-2024 ambulatory ENRRIQUE CARMONA Facility:[facility] Start: 03-05-2024 End: 03-09-2024 Evaluation and management of inpatient ENRRIQUE CARMONA Facility:[facility] Start: 03-04-2024 End: 03-04-2024 Telephone encounter Enrrique Carmona MD Work Phone: [facility] Comment on above: Erroneous encounter- disregard Start: 03-04-2024 End: 03-04-2024 ambulatory Enrrique Carmona MD Work Phone: [facility] Comment on above: Lightheaded (Primary Dx); 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); Type 2 diabetes mellitus without complication, without long-term current use of insulin (HCC); Weight loss; Grief reaction; Essential hypertension Start: 03-04-2024 End: 03-04-2024 Telemedicine consultation with patient Enrrique Carmona MD Work Phone: [facility] Start: 03-03-2024 Encounter for other preprocedural examination ENRRIQUE CARMONA [facility] Start: 03-03-2024 End: 03-03-2024 Orders Only Marcel Roberts MD Work Phone: Endocrine Surgery Comment on above: Patient Update Prep for surgery Pre-operative examin ation (Primary Dx); Essential hypertension; Mixed hyperlipidemia; Paroxysmal atrial fibrillation (HCC); Dizziness; Bilateral carotid artery stenosis; Chronic depression; History of skin cancer; Type 2 diabetes mellitus without complication, without long-term current use of insulin (HCC) Start: 03-03-2024 End: 03-03-2024 Preprocedural examination done [facility] [place] 1 Work Phone: [facility] Work Phone: Start: 03-02-2024 End: 03-02-2024 Office outpatient visit 15 minutes Vianney Sahu APRN.CNP Work Phone: [facility] Comment on above: 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) (Primary Dx); Type 2 diabetes mellitus without complication, without long-term current use of insulin (HCC); Bilateral leg edema; Anxiety state; Essential hypertension Start: 03-02-2024 End: 03-03-2024 ambulatory Vianney Sahu APRNBennyCANDLES POURER Work Phone: [facility] Comment on above: Mirtazapine DNR Start: 03-02-2024 End: 03-02-2024 Telephone encounter Marcel Roberts MD Work Phone: Endocrine Surgery Comment on above: Patient Update Start: 03-01-2024 End: 03-01-2024 Telephone encounter Marcel Roberts MD Work Phone: Endocrine Surgery Comment on above: Patient Question Patient Update Start: 02-25-2024 End: 03-01-2024 Admission to same day surgery center Marcel Roberts MD Work Phone: Endocrine Surgery Comment on above: Surgery 03/05 Start: 02-25-2024 End: 03-01-2024 ambulatory Marcel Roberts MD Work Phone: Endocrine Surgery Start: 02-19-2024 End: 02-20-2024 Admission to same day surgery center Marcel Roberts MD Work Phone: Endocrine Surgery Comment on above: 03/05/24; MAIN OR; CU RE (Open Left Adrenalectomy) Start: 02-19-2024 End: 02-20-2024 ambulatory Marcel Roberts MD Work Phone: Endocrine Surgery Start: 02-16-2024 End: 02-16-2024 Patient Outreach Romana Bhandari RN Work Phone: [facility] Comment on above: Transition Of Care ( TCM INITIAL OUTREACH) Initial phone contact for Transitional Care Management Start: 02-13-2024 End: 02-14-2024 ambulatory LENIN RODRIGUEZ Facility:[facility] Start: 02-13-2024 End: 02-13-2024 ambulatory Nurse Intm/Famp Triage [facility] Work Phone: Nurse Phone Triage Comment on above: Abdominal Pain Start: 02-12-2024 End: 02-13-2024 ambulatory Enrrique Carmona MD Work Phone: [facility] Comment on above: Xarelto Start: 02-10-2024 End: 02-10-2024 Office outpatient visit 15 minutes Vianney Sahu APRN.CNP Work Phone: [facility] Comment on above: Degeneration of lumb ar intervertebral disc (Primary Dx); Anxiety with depression; Chronic insomnia; Type 2 diabetes mellitus without complication, without long-term current use of insulin (HCC); Weight loss; 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); Bilateral leg edema; Anxiety state Start: 02-10-2024 End: 02-10-2024 ambulatory ENRRIQUE CARMONA Facility:[facility] Start: 02-09-2024 End: 02-11-2024 Admission to same day surgery center Marcel Roberts MD Work Phone: Endocrine Surgery Comment on above: Abdominal pain Start: 02-09-2024 End: 02-11-2024 ambulatory Marcel Roberts MD Work Phone: Endocrine Surgery Start: 02-08-2024 End: 02-09-2024 Admission to same day surgery center Marcel Roberts MD Work Phone: Endocrine Surgery Comment on above: Swollen feet and ank les Start: 02-08-2024 End: 02-09-2024 ambulatory Enrrique Carmona MD Work Phone: [facility] Comment on above: Feet and ankles swol rd Start: 02-04-2024 End: 02-05-2024 Emergency department patient visit [facility] Facility:[facility] Start: 02-02-2024 End: 02-02-2024 ambulatory Enrrique Carmona MD Work Phone: [facility] Comment on above: HELP NEEDED NANCY Depression Start: 01-29-2024 Admission to [facility] surgery center Enrrique Carmona MD Work Phone: [facility] Comment on above: Tumor removal surger y Start: 01-29-2024 ambulatory Enrrique Carmona MD Work Phone: [facility] Start: 01-23-2024 End: 01-23-2024 Patient encounter procedure Marcel Roberts MD Work Phone: Endocrine Surgery Comment on above: Adrenal mass (HCC) ( Primary Dx); Left upper quadrant abdominal mass; Weight loss; Rectal bleeding Start: 01-23-2024 End: 01-23-2024 ambulatory [facility] Facility:[facility] Start: 01-20-2024 Refill Enrrique Carmona MD Work Phone: [facility] [place] Comment on above: Refill Request Start: 01-16-2024 End: 01-16-2024 Patient encounter procedure Enrrique Carmona MD Work Phone: [facility] [place] Comment on above: 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) (Primary Dx); Anxiety; Medication monitoring encounter; Rectal bleeding; Weight loss Start: 01-16-2024 End: 01-16-2024 ambulatory [facility] Facility:[facility] Start: 01-14-2024 ambulatory Enrrique Carmona MD Work Phone: [facility] [place] Comment on above: Lorazepam Disorder of adrenal gland (HCC) (Primary Dx) Start: 01-14-2024 Telephone encounter Marcel ponce MD Work Phone: Endocrine Surgery Comment on above: Consult (Face sheet) Start: 01-10-2024 End: 01-10-2024 ambulatory [facility] Facility:[facility] Start: 01-09-2024 Telephone encounter Enrrique Carmona MD Work Phone: [facility] [place] Comment on above: Results Erroneous encounter- disregard Start: 01-09-2024 End: 01-09-2024 ambulatory [facility] Facility:[facility] Start: 01-09-2024 End: 01-09-2024 Subsequent hospital visit by physician Taylor [facility] (I-Stat) Work Phone: Cat Scan Comment on above: Weight loss [R63.4] Start: 01-07-2024 Telephone encounter Enrrique Carmona MD Work Phone: [facility] [place] Comment on above: Results Start: 01-06-2024 End: 01-06-2024 ambulatory ENRRIQUE CARMONA Facility:[facility] Start: 01-05-2024 End: 01-05-2024 Patient encounter procedure Enrrique Carmona MD Work Phone: [facility] [place] Comment on above: Blood in stool (Prim andrea Dx); Weight loss; Left upper quadrant abdominal mass; Intra-abdominal and pelvic swelling, mass and lump, unspecified site Start: 01-05-2024 End: 01-05-2024 ambulatory ENRRIQUE CARMONA Facility:[facility] Start: 12-20-2023 ambulatory Enrrique Carmona MD Work Phone: [employer] Comment on above: Allied Health Visit (Medication Adherence Outreach/) Start: 12-12-2023 Refill Enrrique Carmona MD Work Phone: [facility] [place] Comment on above: Refill Request Start: 12-09-2023 Refill Enrrique Carmona MD Work Phone: [facility] [place] Comment on above: Refill Request XARELTO Start: 12-03-2023 ambulatory Enrrique Carmona MD Work Phone: [employer] Comment on above: Allied Health Visit (Medication Adherence Outreach/) Start: 10-31-2023 End: 10-31-2023 Office outpatient visit 15 minutes Vianney Sahu APRNBennyROAD CLEANER Work Phone: [facility] [place] Comment on above: Anxiety with depress ion (Primary Dx) Start: 10-03-2023 End: 10-03-2023 Patient encounter procedure Enrrique Carmona MD Work Phone: [facility] [place] Comment on above: Type 2 diabetes otilia itus without complication, without long- term current use of insulin (HCC) (Primary Dx); History of skin cancer; Paroxysmal atrial fibrillation (HCC); Mixed hyperlipidemia; Essential hypertension; Bilateral carotid artery stenosis; Chronic depression; Anxiety state; Reactive depression Start: 09-21-2023 Refill Enrrique Carmona MD Work Phone: [facility] [place] Comment on above: Refill Request Start: 08-14-2023 Refill [facility] Comment on above: Refill Request Start: 04-23-2023 End: 04-24-2023 Emergency department patient visit [facility]Emergency Department Work Phone: Start: 04-02-2023 End: 04-02-2023 Patient encounter procedure Enrrique Carmona MD Work Phone: [facility] [place] Comment on above: Type 2 diabetes otilia itus without complication, without long- term current use of insulin (HCC) (Primary Dx); Mixed hyperlipidemia; Paroxysmal atrial fibrillation (HCC); Essential hypertension; History of skin cancer; Chronic depression; Bilateral carotid artery stenosis Start: 02-14-2023 Telephone encounter Enrrique Carmona MD Work Phone: [facility] [place] Comment on above: Medical Clearance (F or Dental tx) Start: 02-02-2023 Get Medical Advice Enrrique Carmona MD [facility] Comment on above: Lorazepam refill Start: 12-26-2022 End: 12-26-2022 Patient encounter procedure Melissa Nikita BURTON Work Phone: [facility] Comment on above: Rash (Primary Dx) Start: 12-16-2022 ambulatory Enrrique Carmona MD Work Phone: [facility] [place] Comment on above: Bloodwork Start: 10-30-2022 Refill Enrrique Carmona MD Work Phone: [facility] [place] Comment on above: Refill Request Start: 09-27-2022 Telephone encounter Enrrique Carmona MD Work Phone: [facility] [place] Comment on above: Results Start: 09-26-2022 End: 09-26-2022 Patient encounter procedure Enrrique Carmona MD Work Phone: [facility] [place] Comment on above: Essential hypertensi on (Primary Dx); Congestive heart failure, unspecified HF chronicity, unspecified heart failure type (HCC); Type 2 diabetes mellitus without complication, without long-term current use of insulin (HCC); Paroxysmal atrial fibrillation (HCC); Mixed hyperlipidemia; Gout with manifestations; Anxiety state; Noncompliance Start: 09-03-2022 Refill Enrrique Carmona MD Work Phone: [facility] Comment on above: Refill Request Start: 08-06-2022 Refill Enrrique Carmona MD Work Phone: [facility] Comment on above: Refill Request Start: 06-27-2022 MC Get Medical Advice Enrrique Carmona MD Work Phone: [facility] Comment on above: Ativan refill Start: 06-05-2022 Non-patient / Non-visit Dr. Flora Carmona Work Phone: [facility] Start: 06-05-2022 End: 06-05-[address] Enrrique Carmona Work Phone: [facility] Work Phone: Start: 06-05-2022 End: 06-05-[address] Enrrique Carmona Work Phone: [facility]-Cardiovascula r Services Start: 05-31-2022 End: 05-31-[address] Enrrique Carmona Work Phone: [facility] Start: 04-29-2022 Telephone encounter Enrrique Carmona MD Work Phone: [facility] Comment on above: Blood Pressure Check (/) Start: 03-31-2022 End: 03-31-2022 Emergency department patient visit Dr. Enrrique Carmona Work Phone: [facility]-Emergency Department Start: 03-30-2022 Refill Enrrique Carmona MD Work Phone: [facility] Comment on above: Refill Request Start: 03-29-2022 End: 03-29-2022 Telemedicine consultation with patient Enrrique Carmona MD Work Phone: [facility] [place] Start: 03-29-2022 End: 03-29-2022 ambulatory Enrrique Carmona MD Work Phone: [facility] [place] Comment on above: info COVID-19 (Primary Dx ) Start: 03-29-2022 E-mail encounter isis m caregiver Enrrique Carmona MD Work Phone: [facility] [place] Start: 03-28-2022 ambulatory Enrrique Carmona MD Work Phone: [facility] [place] Comment on above: Current Meds Dad COVID POSITIVE Start: 03-28-2022 End: 03-28-2022 Patient encounter procedure Enrrique Carmona MD Work Phone: [facility] [place] Comment on above: Essential hypertensi on (Primary Dx); Need for influenza vaccination; Mixed hyperlipidemia; Type 2 diabetes mellitus without complication, without long-term current use of insulin (HCC); Gout with manifestations; Bilateral carotid artery stenosis; Paroxysmal atrial fibrillation (HCC) Start: 03-25-2022 Refill Enrrique Carmona MD Work Phone: [facility] [place] Comment on above: Refill Request Start: 03-05-2022 End: 03-05-2022 Patient encounter procedure Brandy Santana APRN.CNP Work Phone: [facility] Comment on above: Acute foreign body o f ear canal, left, initial encounter (Primary Dx) Start: 03-02-2022 Refill Enrrique Carmona MD Work Phone: [facility] [place] Comment on above: Refill Request Start: 01-04-2022 Get Medical Advice Enrrique Carmona MD Work Phone: [facility] Comment on above: Ativan refill Start: 12-20-2021 Refill Enrrique Carmona MD Work Phone: Family [facility] [place] Comment on above: Refill Request Start: 12-11-2021 ambulatory Enrrique Carmona MD Work Phone: [facility] Comment on above: Allied Health Visit (Medication Adherence Outreach) Start: 12-05-2021 ambulatory Enrrique Carmona MD Work Phone: [facility] Comment on above: Medication adherence Start: 12-05-2021 E-mail encounter fro m caregiver Enrrique Carmona MD Work Phone: [facility] Start: 09-25-2021 Telephone encounter Enrrique Carmona MD Work Phone: Family [facility] Comment on above: Results Start: 09-24-2021 Telephone encounter Enrrique Carmona MD Work Phone: [facility] Comment on above: Results Start: 09-24-2021 End: 09-24-2021 Subsequent hospital visit by physician Xr [facility] Work Phone: Radiology Comment on above: SOB (shortness of br eath) [R06.02] Start: 09-24-2021 End: 09-24-2021 Patient encounter procedure Enrrique Carmona MD Work Phone: Family [facility] Comment on above: SOB (shortness of br eath) (Primary Dx); Anxiety; Medication monitoring encounter; Advance care planning; Essential hypertension; Paroxysmal atrial fibrillation (HCC); Mixed hyperlipidemia; Type 2 diabetes mellitus without complication, without long-term current use of insulin (HCC); Bilateral carotid artery stenosis Start: 04-19-2021 End: 04-19-2021 Subsequent hospital visit by physician Xr [facility] [place] Work Phone: Radiology Comment on above: Wrist pain, acute, r ight [M25.531] Procedures Date Procedure Procedure Detail Performing Clinician Start: 03-03-2024 Antibody screen ENRRIQUE CARMONA Comment on above: Order Comment: Speci men Type: BLOOD SPECIMENOrdering Facility: [facility] Address: [address] [place] [address] Performed By: #### T [id number] ####CC MAIN BLOOD BANKCLIA [id number] [place] [address] [place] Start: 01-09-2024 Ct abdomen & pelvis w/contrast material Enrrique Carmona MD Work Phone: Start: 03-28-2022 INFLUENZA SEASONAL QUADRIVALENT HIGH DOSE AGE 65+ Enrrique Carmona MD Work Phone: Start: 09-24-2021 Radiologic exam ches t 2 views Enrrique Carmona MD Work Phone: Start: 04-19-2021 Radex wrist complete minimum 3 views Meir Orellana OPTICAL MECHANIC APPRENTICE.CANDLES POURER Work Phone: Start: 02-12-2017 End: 02-12-2017 Cardioversion Eber Cuenca MD Work Phone: Start: 02-05-2017 End: 02-05-2017 *BMP Eber Cuenca MD Work Phone: Start: 02-05-2017 End: 02-17-2017 Nurse, Teaching, Wound Check (no charge) Eber Cuenca MD Work Phone: Start: 01-10-2017 End: 01-10-2017 Dietary management education, guidance, and counseling Kerry Cohn RN Start: 01-08-2017 End: 01-09-2017 *BMP Eber Cuenca MD Work Phone: Start: 01-08-2017 End: 01-09-2017 *Hepatic Function Panel Eber Cuenca MD Work Phone: Start: 01-08-2017 End: 01-09-2017 aPTT Eber Cuenca MD Work Phone: Start: 01-08-2017 End: 01-09-2017 CBC W Auto Differential panel - Blood Eber Cuenca MD Work Phone: Start: 01-08-2017 End: 01-09-2017 Chest x-ray Eber Cuenca MD Work Phone: Start: 01-08-2017 End: 01-09-2017 Coagulation factor induced.INR assay in platelet poor plasma Eber Cuenca MD Work Phone: Start: 01-08-2017 End: 01-09-2017 Lipid panel [AGGREGATE] Eber Cuenca MD Work Phone: Start: 12-25-2016 End: 12-25-2016 Follow Up BP Check Eber Cuenca MD Work Phone: Start: 12-10-2016 End: 12-10-2016 Dietary management education, guidance, and counseling Carmelita Rosado Start: 12-10-2016 End: 12-10-2016 DJN Eber Cuenca MD Work Phone: Start: 12-10-2016 End: 12-20-2016 Echocardiography Eber Cuenca MD Work Phone: Start: 12-10-2016 End: 12-10-2016 Electrocardiogram, complete Eber jade MD Work Phone: Start: 12-10-2016 End: 12-10-2016 Follow Up Appt 1 month Eber Cuenca MD Work Phone: Start: 12-10-2016 End: 01-08-2017 Stress Echocardiogram (treadmill) Eber Cuenca MD Work Phone: Plan of Treatment Date Care Activity Detail Author Start: 06-18-2027 Diabetes Screening Diabetes Screening [facility] Start: 12-22-2025 Hepatitis B surface antibody level LDL Cholesterol [facility] Start: 08-17-2025 Glaucoma screening Dilated Retinal Exam [facility] Start: 06-24-2025 Hemoglobin A1c measurement HbA1C [facility] Start: 06-18-2025 Hepatitis B screening Urine Albumin:Creatinine Ratio [facility] Start: 04-14-2025 Glaucoma screening Dilated Retinal Exam [facility] Start: 02-21-2025 Influenza [facility] Start: 02-15-2025 End: 02-15-2025 Patient encounter procedure 02/15/2025 11:00 AM EDT Office Visit [facility] [place] [address] [place], [place] [id number] Vianney Sahu, OPTICAL MECHANIC APPRENTICE.CANDLES POURER [address] [place] [address] 8 wk follow up [facility] [place] Comment on above: 8 wk follow up Start: 01-13-2025 End: 04-14-2025 C reactive protein [Mass/volume] in Serum or Plasma [facility] Comment on above: Expected: 01/13/2025, Expires: Start: 01-13-2025 End: 04-14-2025 Erythrocyte sedimentation rate [facility] Comment on above: Expected: 01/13/2025, Expires: Start: 01-13-2025 End: 04-14-2025 Urate [Mass/volume] in Serum or Plasma [facility] Comment on above: Expected: 01/13/2025, Expires: Start: 12-22-2024 End: 03-23-2025 Comprehensive metabolic 2000 panel - Serum or Plasma [facility] Comment on above: Expected: 12/22/2024, Expires: Start: 12-22-2024 End: 03-23-2025 Hemoglobin A1c in Blood [facility] Comment on above: Expected: 12/22/2024, Expires: Start: 12-22-2024 End: 03-23-2025 LIPID PANEL, NONFASTING [facility] Comment on above: Expected: 12/22/2024, Expires: Start: 12-22-2024 End: 03-23-2025 T4/FTI/T4U [facility] Comment on above: Expected: 12/22/2024, Expires: Start: 12-22-2024 End: 03-23-2025 Thyrotropin [Units/volume] in Serum or Plasma [facility] Work Phone: Comment on above: Expected: 12/22/2024, Expires: Start: 12-22-2024 End: 12-22-2024 Patient encounter procedure 12/22/2024 1:40 PM EDT Office Visit Family [facility] [address] [place], [place] [address] Enrrique Carmona MD [address] [place] [address] 6 month exam [facility] Comment on above: 6 month exam Start: 12-17-2024 Hemoglobin A1c measurement HbA1C [facility] Start: 11-18-2024 Hemoglobin A1c measurement HbA1C [facility] Start: 10-30-2024 RSV Vaccine (1 - 1-dose 60+ series) RSV Vaccine (1 - 1-dose 60+ series) [facility] Comment on above: Postponed from 1999 (Insurance Cov erage) Start: 10-30-2024 RSV Vaccine (1 - 1-dose 75+ series) RSV Vaccine (1 - 1-dose 75+ series) [facility] Comment on above: Postponed from 09/07/2014 (Insurance Cov erage) Start: 10-30-2024 Urine microalbumin profile DTaP,Tdap,Td Vaccine (1 - Tdap) [facility] Comment on above: Postponed from 07/21/2014 (Insurance Cov erage) Start: 09-20-2024 End: 09-20-2024 ambulatory 09/20/2024 8:00 AM EDT Results Only [facility] [address] [place] [address] lab [facility] Comment on above: lab Start: 09-16-2024 End: 12-16-2024 Cortisol [Mass/volume] in Serum or Plasma --post dose dexamethasone CORTISOL SUPRES POST Lab Routine Fatigue, unspecified type Abnormal weight gain ACTH elevation Expected: 09/16/2024, Expires: 12/16/2024 [facility] Comment on above: Expected: 09/16/2024, Expires: Start: 09-16-2024 End: 12-16-2024 DEXAMETHASONE DEXAMETHASONE Lab Routine Fatigue, unspecified type Abnormal weight gain ACTH elevation Expected: 09/16/2024, Expires: 12/16/2024 [facility] Work Phone: Comment on above: Expected: 09/16/2024, Expires: Start: 09-16-2024 End: 09-16-2024 Patient encounter procedure 09/16/2024 11:40 AM EDT Office Visit Endocrinology [address] [place] [address] Obie Marcelo MD [address] [place] [address] scan results Endocrinology Comment on above: adrenal labs and CT scan results Start: 08-31-2024 Hemoglobin A1c measurement HbA1C [facility] Start: 08-26-2024 End: 11-25-2024 CREATININE BLD CREATININE BLD Lab Routine H/O total adrenalectomy (HCC) Expected: 08/26/2024, Expires: 11/25/2024 [facility] Comment on above: Expected: 08/26/2024, Expires: Start: 07-22-2024 Glaucoma screening Dilated Retinal Exam [facility] Start: 07-05-2024 End: 10-04-2024 Corticotropin [Mass/volume] in Plasma ACTH BLD Lab Routine Dizziness Lightheadedness H/O total adrenalectomy (HCC) Fatigue, unspecified type Expected: 07/05/2024, Expires: 10/04/2024 [facility] Work Phone: Comment on above: Expected: 07/05/2024, Expires: Start: 07-05-2024 End: 10-04-2024 Cortisol [Mass/volume] in Serum or Plasma CORTISOL, SERUM Lab Routine Dizziness Lightheadedness H/O total adrenalectomy (HCC) Fatigue, unspecified type Expected: 07/05/2024, Expires: 10/04/2024 [facility] Comment on above: Expected: 07/05/2024, Expires: Start: 07-05-2024 End: 07-05-2024 Patient encounter procedure 07/05/2024 1:40 PM EST Office Visit Endocrinology [address] [place], [place] [phone] Obie aMrcelo MD [address] [place], [place] [id number] Dizziness [R42]; Lightheadedness [R42]; 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]; Fatigue, unspecified type [R53.83] Endocrinology Comment on above: Dizziness [R42]; Lightheadedness [R42]; 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]; Fatigue, unspecified type [R53.83] Start: 06-23-2024 Advance Directive Discussion Advance Directive Discussion [facility] Start: 06-23-2024 Medicare Advantage Annual Wellness Visit Medicare Advantage Annual Wellness Visit [facility] Start: 06-18-2024 End: 09-17-2024 Hemoglobin A1c in Blood [facility] Comment on above: Expected: 06/18/2024, Expires: Start: 06-18-2024 End: 09-17-2024 Magnesium [Mass/volume] in Serum or Plasma [facility] Comment on above: Expected: 06/18/2024, Expires: Start: 06-18-2024 End: 09-17-2024 Microalbumin/Creatinine [Mass Ratio] in Urine [facility] Comment on above: Expected: 06/18/2024, Expires: Start: 06-18-2024 End: 06-18-2024 Patient encounter procedure 06/18/2024 11:40 AM EST Office Visit [facility] [address] [place] [address] Vianney Sahu APRN.CANDLES POURER [address] [place] [address] 4 week follow up [facility] [place] Comment on above: 4 week follow up Start: 06-02-2024 End: 06-02-2024 Patient encounter procedure 06/02/2024 11:30 AM EST Office Visit Geriatrics [address] [facility] [place] [address] Isabel Celis MD [address] [place] [address] 4 WEK FOLLOW UP Geriatrics Comment on above: 4 WEK FOLLOW UP Start: 05-31-2024 End: 08-30-2024 Basic metabolic 2000 panel - Serum or Plasma BASIC METABOLIC PANEL Lab Routine Polycythemia Hyperkalemia Expected: 05/31/2024, Expires: 08/30/2024 [facility] Work Phone: Comment on above: Expected: 05/31/2024, Expires: Start: 05-31-2024 End: 05-24-2025 CARBOXYHEMOGLOBIN ARVIND CARBOXYHEMOGLOBIN ARVIND Lab Routine Polycythemia Hyperkalemia Expected: 05/31/2024, Expires: 05/24/2025 [facility] Comment on above: Expected: 05/31/2024, Expires: Start: 05-31-2024 End: 05-24-2025 CBC W Auto Differential panel - Blood COMPLETE BLOOD COUNT AND DIFFERENTIAL Lab Routine Polycythemia Hyperkalemia Expected: 05/31/2024, Expires: 05/24/2025 [facility] Comment on above: Expected: 05/31/2024, Expires: Start: 05-28-2024 End: 05-28-2024 Patient encounter procedure 05/28/2024 12:20 PM EST Appointment [facility] [address] [place], [place] [id number] Cognitive impairment, mild, so stated [G31.84] [facility] Comment on above: Cognitive impairment, mild, so stated [G 31.84] Start: 05-21-2024 End: 08-20-2024 CBC W Auto Differential panel - Blood [facility] Work Phone: Comment on above: Expected: 05/21/2024, Expires: Start: 05-21-2024 End: 08-20-2024 Comprehensive metabolic 2000 panel - Serum or Plasma [facility] Comment on above: Expected: 05/21/2024, Expires: Start: 05-21-2024 End: 08-20-2024 Hemoglobin A1c in Blood [facility] Comment on above: Expected: 05/21/2024, Expires: Start: 05-21-2024 End: 08-20-2024 Thyrotropin [Units/volume] in Serum or Plasma [facility] Comment on above: Expected: 05/21/2024, Expires: Start: 05-21-2024 End: 05-21-2024 Patient encounter procedure 05/21/2024 11:40 AM EST Office Visit Family [facility] [address] [place] [address] Enrrique Carmona MD [address] [place] [phone] R/S from 05/04 6 month follow up [facility] Comment on above: R/S from 05/04 6 month follow up Start: 05-04-2024 End: 05-04-2024 Patient encounter procedure 05/04/2024 2:40 PM EST Office Visit [facility] [address] [place] [address] Enrrique Carmona MD [address] [facility] [place], [place] [phone] 6 month follow up [facility] Comment on above: 6 month follow up Start: 04-07-2024 End: 04-07-2024 Patient encounter procedure 04/07/2024 2:30 PM EDT Office Visit Geriatrics [address] [facility] [place], [place] [phone] Isabel Celis MD [address] [facility] [place], [place] [phone] Major depressive disorder with current active episode, unspecified depression ep... Geriatrics Comment on above: Major depressive disorder with current a ctive episode, unspecified depression ep... Start: 04-03-2024 Hemoglobin A1c measurement HbA1C [facility] Start: 04-03-2024 Hepatitis B screening Urine Albumin:Creatinine Ratio [facility] Start: 04-03-2024 Hepatitis B surface antibody level LDL Cholesterol [facility] Start: 04-02-2024 Covid-19 Vaccine ( season) Covid-19 Vaccine () [facility] Comment on above: Postponed from 02/21/2023 (Declined at t his time) Start: 03-25-2024 End: 03-25-2024 Admission to same day surgery center Endocrine Surgery Comment on above: post op Start: 03-19-2024 End: 03-19-2024 Patient encounter procedure 03/19/2024 1:20 PM EDT Office Visit [facility] [address] [facility], [place] [phone] Vianney Sahu APRN.CANDLES POURER [address] [facility] [place], [place] [phone] staple removal [facility] Comment on above: staple removal Start: 03-15-2024 End: 03-15-2024 Patient encounter procedure 03/15/2024 1:40 PM EDT [facility] [address] [place] [address] Vianney Sahu APRN.CANDLES POURER [address] [place], [place] [phone] Hospital Follow Up - TCM Eligible until 03/23 (if unable to do Video Visit on 03/12) and to discuss Possible Sleep Apnea [facility] Comment on above: Hospital Follow Up - TCM Eligible until 03/23 (if unable to do Video Visit on 03/12) and to discuss Possible Sleep Apnea Start: 03-12-2024 End: 03-12-2024 Follow-up encounter 03/12/2024 9:[address] [facility] [address] [place] [address] Vianney Sahu APRN.CANDLES POURER [address] [facility] [id number] Hospital Discharge Follow up -TCM Eligible until 03/23/2024 [facility] Comment on above: Hospital Discharge Follow up -TCM Eligib le until 03/23/2024 Start: 03-05-2024 End: 03-05-2024 Admission to same day surgery center Admitting Comment on above: ADRENALECTOMY Start: 03-05-2024 End: 03-05-2024 Adrenalectomy w/expl w/wo bx abdl/lmbr/drsal spx [facility] Start: 03-05-2024 End: 03-05-2024 Anesthesia consultation 03/05/2024 12:05 PM EDT Anesthesia Event Admitting [address] [place] [address] Lorenzo Verma MD [address] [place] [address] Admitting Start: 03-05-2024 Subsequent hospital visit by physician Admitting Comment on above: Adrenal mass greater than 4 cm in diamet er (HCC) [E27.8] Start: 03-04-2024 End: 03-04-2024 ambulatory 03/04/2024 11:00 AM EDT [facility] [address] [place] [address] Enrrique Carmona MD [address] [place] [address] discuss preop visit results [facility] Comment on above: discuss preop visit results Start: 03-03-2024 End: 03-03-2024 ambulatory 03/03/2024 8:45 AM EDT Results Only [facility] [address] [place] [address] pre-op [facility] Comment on above: pre-op Start: 03-03-2024 End: 03-03-2024 Anesthesia consultation 03/03/2024 8:00 AM EDT PAT Pre Anesthesia [address] [place] [address] 1, Pac [place] [address] [place] [address] pre-op Pre Anesthesia Comment on above: pre-op Start: 03-02-2024 End: 03-02-2024 Patient encounter procedure 03/02/2024 3:00 PM EDT Office Visit [facility] [address] [place] [address] Vianney Sahu APRN.CANDLES POURER [address] [place] [address] 1 mo f/u [facility] Comment on above: 1 mo f/u Start: 02-22-2024 Covid-19 Vaccine ( season) Covid-19 Vaccine ( season) [facility] Start: 02-22-2024 Covid-19 Vaccine () Covid-19 Vaccine () [facility] Start: 02-22-2024 Influenza vaccination Influenza Vaccine (#1) [facility] Start: 02-19-2024 End: 05-20-2024 TYPE AND SCREEN,30 DAY TYPE AND SCREEN,30 DAY Blood Bank Routine Adrenal mass greater than 4 cm in diameter (HCC) Expected: 02/19/2024, Expires: 05/20/2024 [facility] Comment on above: Expected: 02/19/2024, Expires: Start: 02-10-2024 End: 02-10-2024 Patient encounter procedure 02/10/2024 4:00 PM EDT Office Visit Family [facility] [address] [place], [place] [phone] Vianney Sahu APRN.CANDLES POURER [address] [place], [place] [phone] edema ozzie legs, scheduled per daughter [facility] Comment on above: edema ozzie legs, scheduled per daughter Start: 01-23-2024 End: 01-23-2024 Patient encounter procedure 01/23/2024 9:15 AM EDT Office Visit Endocrine Surgery [address] [place] [address] Marcel Roberts MD [address] [place], [place] [phone] INTAKE COMLETE - Weight loss [R63.4]; 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) [E27.8] Endocrine Surgery Comment on above: INTAKE COMLETE - Weight loss [R63.4]; Ad renal 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 no history of malignant neoplasm (HCC) [E27.8] Start: 01-16-2024 End: 01-16-2024 Patient encounter procedure 01/16/2024 1:40 PM EDT Office Visit [facility] [address] [place], [place] [phone] Enrrique Carmona MD [address] [place] [address] patient requesting appt with , he has questions about upcoming surgery consults [facility] Comment on above: patient requesting appt with , he has questions about upcoming surgery consults Start: 01-14-2024 End: 04-14-2024 Aldosterone [Mass/volume] in Serum or Plasma ALDOSTERONE BLD Lab Routine Disorder of adrenal gland (HCC) Expected: 01/14/2024, Expires: 04/14/2024 [facility] Comment on above: Expected: 01/14/2024, Expires: Start: 01-14-2024 End: 04-14-2024 Catecholamines 3 panel [Mass/volume] - Plasma CATECHOLAMINES FRA Lab Routine Disorder of adrenal gland (HCC) Expected: 01/14/2024, Expires: 04/14/2024 [facility] Comment on above: Expected: 01/14/2024, Expires: Start: 01-14-2024 End: 04-14-2024 Corticotropin [Mass/volume] in Plasma ACTH BLD Lab Routine Disorder of adrenal gland (HCC) Expected: 01/14/2024, Expires: 04/14/2024 [facility] Work Phone: Comment on above: Expected: 01/14/2024, Expires: Start: 01-14-2024 End: 04-14-2024 Cortisol [Mass/volume] in Serum or Plasma CORTISOL, SERUM Lab Routine Disorder of adrenal gland (HCC) Expected: 01/14/2024, Expires: 04/14/2024 [facility] Comment on above: Expected: 01/14/2024, Expires: Start: 01-14-2024 End: 04-14-2024 DHEA-S BLD DHEA-S BLD Lab Routine Disorder of adrenal gland (HCC) Expected: 01/14/2024, Expires: 04/14/2024 [facility] Comment on above: Expected: 01/14/2024, Expires: Start: 01-14-2024 End: 04-14-2024 DIRECT RENIN PLASMA DIRECT RENIN PLASMA Lab Routine Disorder of adrenal gland (HCC) Expected: 01/14/2024, Expires: 04/14/2024 [facility] Comment on above: Expected: 01/14/2024, Expires: Start: 01-14-2024 End: 04-14-2024 METANEPHRINES, FREE PLASMA METANEPHRINES, FREE PLASMA Lab Routine Disorder of adrenal gland (HCC) Expected: 01/14/2024, Expires: 04/14/2024 [facility] Comment on above: Expected: 01/14/2024, Expires: Start: 01-09-2024 End: 04-09-2024 PSA/PROSTATE SPECIFIC ANTIGEN SCREENING PSA/PROSTATE SPECIFIC ANTIGEN SCREENING Lab Routine Benign prostatic hyperplasia without lower urinary tract symptoms Screening for prostate cancer Expected: 01/09/2024, Expires: 04/09/2024 [facility] Work Phone: Comment on above: Expected: 01/09/2024, Expires: Start: 01-09-2024 End: 01-09-2024 Patient encounter procedure Cat Scan Comment on above: Weight loss [R63.4]; Left upper quadrant abdominal mass [R19.02]; Intra-abdominal and pelvic swelling, mass and lump, unspecified site [R19.00] Start: 01-05-2024 End: 04-05-2024 CBC W Auto Differential panel - Blood COMPLETE BLOOD COUNT AND DIFFERENTIAL Lab Routine Weight loss Expected: 01/05/2024, Expires: 04/05/2024 [facility] Comment on above: Expected: 01/05/2024, Expires: Start: 01-05-2024 End: 04-05-2024 Comprehensive metabolic 2000 panel - Serum or Plasma COMPREHENSIVE METABOLIC PANEL Lab Routine Weight loss Expected: 01/05/2024, Expires: 04/05/2024 [facility] Comment on above: Expected: 01/05/2024, Expires: Start: 01-05-2024 End: 04-05-2024 Erythrocyte sedimentation rate SEDIMENTATION RATE, WESTERGREN Lab Routine Weight loss Expected: 01/05/2024, Expires: 04/05/2024 [facility] Comment on above: Expected: 01/05/2024, Expires: Start: 01-05-2024 End: 04-05-2024 Prealbumin [Mass/volume] in Serum or Plasma PREALBUMIN Lab Routine Weight loss Left upper quadrant abdominal mass Expected: 01/05/2024, Expires: 04/05/2024 [facility] Comment on above: Expected: 01/05/2024, Expires: Start: 01-05-2024 End: 04-05-2024 Thyrotropin [Units/volume] in Serum or Plasma THYROID STIMULATING HORMONE Lab Routine Weight loss Expected: 01/05/2024, Expires: 04/05/2024 [facility] Comment on above: Expected: 01/05/2024, Expires: Start: 10-03-2023 End: 01-02-2024 Hemoglobin A1c in Blood [facility] Work Phone: Comment on above: Expected: 10/03/2023, Expires: Start: 10-03-2023 Hemoglobin A1c measurement HbA1C [facility] Start: 09-27-2023 3 comp foot exam completed DIABETIC FOOT EXAM [facility] Start: 09-27-2023 COVID-19 VACCINE (3 - Booster for Pfizer series) COVID-19 VACCINE (3 - Booster for Pfizer series) [facility] Comment on above: Postponed from 11/09/2020 (Declined at t his time) Start: 09-27-2023 COVID-19 VACCINE (3 - Pfizer series) COVID-19 VACCINE (3 - Pfizer series) [facility] Comment on above: Postponed from 11/09/2020 (Declined at t his time) Start: 09-27-2023 Diabetic foot examination Diabetic Foot Exam [facility] Start: 09-27-2023 Urine microalbumin profile [facility] Comment on above: Postponed from 07/21/2014 (Declined at t his time) Start: 06-23-2023 Advance Directive Discussion Advance Directive Discussion [facility] Start: 06-18-2023 Hemoglobin A1c/Hemoglobin.total in Blood HBA1C [facility] Start: 04-29-2023 Hepatitis B screening URINE ALBUMIN:CREATININE RATIO [facility] Start: 04-29-2023 Hepatitis B surface antibody level LDL CHOLESTEROL [facility] Start: 04-24-2023 [facility] Start: 04-23-2023 [facility] Start: 04-02-2023 End: 06-02-2023 ALBUMIN/CREAT RATIO RND UR ALBUMIN/CREAT RATIO RND UR Lab Routine Type 2 diabetes mellitus without complication, without long-term current use of insulin (HCC) Expected: 04/02/2023, Expires: 06/02/2023 [facility] Work Phone: Comment on above: Expected: 04/02/2023, Expires: 3 Start: 04-02-2023 End: 06-02-2023 CBC W Auto Differential panel - Blood CBC + DIFF Lab Routine Type 2 diabetes mellitus without complication, without long-term current use of insulin (HCC) Expected: 04/02/2023, Expires: 06/02/2023 [facility] Work Phone: Comment on above: Expected: 04/02/2023, Expires: 3 Start: 04-02-2023 End: 06-02-2023 Comprehensive metabolic 2000 panel - Serum or Plasma COMP METABOLIC PANEL Lab Routine Type 2 diabetes mellitus without complication, without long-term current use of insulin (HCC) Expected: 04/02/2023, Expires: 06/02/2023 [facility] Work Phone: Comment on above: Expected: 04/02/2023, Expires: 3 Start: 04-02-2023 End: 06-02-2023 Hemoglobin A1c in Blood HGB A1C Lab Routine Type 2 diabetes mellitus without complication, without long-term current use of insulin (HCC) Expected: 04/02/2023, Expires: 06/02/2023 [facility] Work Phone: Comment on above: Expected: 04/02/2023, Expires: 3 Start: 04-02-2023 End: 06-02-2023 Lipid 1996 panel - Serum or Plasma LIPID PANEL BASIC Lab Routine Type 2 diabetes mellitus without complication, without long-term current use of insulin (HCC) Expected: 04/02/2023, Expires: 06/02/2023 [facility] Work Phone: Comment on above: Expected: 04/02/2023, Expires: 3 Start: 03-28-2023 Hemoglobin A1c/Hemoglobin.total in Blood HBA1C [facility] Start: 02-21-2023 Influenza vaccination INFLUENZA (#1) [facility] Start: 12-27-2022 End: 02-26-2023 Hemoglobin A1c in Blood HGB A1C Lab Routine Type 2 diabetes mellitus without complication, without long-term current use of insulin (HCC) Expected: 12/27/2022, Expires: 02/26/2023 [facility] Work Phone: Comment on above: Expected: 12/27/2022, Expires: 3 Start: 10-27-2022 Hemoglobin A1c/Hemoglobin.total in Blood HBA1C [facility] Start: 09-26-2022 End: 11-26-2022 Basic metabolic 2000 panel - Serum or Plasma [facility] Work Phone: Comment on above: Expected: 09/26/2022, Expires: 3 Start: 09-26-2022 End: 11-26-2022 CBC W Auto Differential panel - Blood [facility] Work Phone: Comment on above: Expected: 09/26/2022, Expires: 3 Start: 09-26-2022 End: 11-26-2022 Hemoglobin A1c in Blood [facility] Work Phone: Comment on above: Expected: 09/26/2022, Expires: 3 Start: 09-24-2022 3 comp foot exam completed DIABETIC FOOT EXAM [facility] Start: 09-24-2022 Hepatitis B surface antibody level LDL CHOLESTEROL [facility] Start: 06-23-2022 ADVANCE DIRECTIVE DISCUSSION ADVANCE DIRECTIVE DISCUSSION [facility] Start: 04-28-2022 End: 06-28-2022 Comprehensive metabolic 2000 panel - Serum or Plasma COMP METABOLIC PANEL Lab Routine Essential hypertension Expected: 04/28/2022, Expires: 06/28/2022 [facility] Work Phone: Comment on above: Expected: 04/28/2022, Expires: 3 Start: 04-28-2022 End: 06-28-2022 Hemoglobin A1c in Blood HGB A1C Lab Routine Type 2 diabetes mellitus without complication, without long-term current use of insulin (HCC) Expected: 04/28/2022, Expires: 06/28/2022 [facility] Work Phone: Comment on above: Expected: 04/28/2022, Expires: 3 Start: 04-28-2022 End: 06-28-2022 Lipid 1996 panel - Serum or Plasma LIPID PANEL BASIC Lab Routine Essential hypertension Expected: 04/28/2022, Expires: 06/28/2022 [facility] Work Phone: Comment on above: Expected: 04/28/2022, Expires: 3 Start: 03-31-2022 [facility] Work Phone: Start: 03-28-2022 End: 05-28-2022 ALBUMIN/CREAT RATIO RND UR ALBUMIN/CREAT RATIO RND UR Lab Routine Type 2 diabetes mellitus without complication, without long-term current use of insulin (HCC) Expected: 03/28/2022, Expires: 05/28/2022 [facility] Work Phone: Comment on above: Expected: 03/28/2022, Expires: 2 Start: 03-26-2022 Hemoglobin A1c/Hemoglobin.total in Blood HBA1C [facility] Start: 03-26-2022 Hepatitis B screening URINE ALBUMIN:CREATININE RATIO [facility] Start: 03-26-2022 Hepatitis B surface antibody level LDL CHOLESTEROL [facility] Start: 02-21-2022 Influenza vaccination INFLUENZA (#1) [facility] Start: 09-25-2021 End: 11-25-2021 Basic metabolic 2000 panel - Serum or Plasma BASIC METABOLIC PNL Lab Routine Congestive heart failure, unspecified HF chronicity, unspecified heart failure type (HCC) Expected: 09/25/2021, Expires: 11/25/2021 [facility] Work Phone: Comment on above: Expected: 09/25/2021, Expires: 2 Start: 09-24-2021 End: 11-24-2021 Basic metabolic 2000 panel - Serum or Plasma [facility] Work Phone: Comment on above: Expected: 09/24/2021, Expires: 2 Start: 09-24-2021 End: 11-24-2021 CBC panel - Blood by Automated count [facility] Work Phone: Comment on above: Expected: 09/24/2021, Expires: 2 Start: 09-24-2021 End: 11-24-2021 Hemoglobin A1c/Hemoglobin.total in Blood [facility] Work Phone: Comment on above: Expected: 09/24/2021, Expires: 2 Start: 09-24-2021 End: 11-24-2021 LIPID PANEL BASIC [facility] Work Phone: Comment on above: Expected: 09/24/2021, Expires: 2 Start: 09-24-2021 End: 11-24-2021 Natriuretic peptide.B prohormone N-Terminal [Mass/volume] in Serum or Plasma [facility] Work Phone: Comment on above: Expected: 09/24/2021, Expires: 2 Start: 07-10-2021 Hepatitis C antibody, confirmatory test DILATED RETINAL EXAM [facility] Start: 06-23-2021 ADVANCE DIRECTIVE DISCUSSION ADVANCE DIRECTIVE DISCUSSION [facility] Start: 02-14-2021 COVID-19 VACCINE (3 - Booster for Pfizer series) COVID-19 VACCINE (3 - Booster for Pfizer series) [facility] Start: 11-09-2020 COVID-19 VACCINE (3 - Booster for Pfizer series) COVID-19 VACCINE (3 - Booster for Pfizer series) [facility] Start: 07-21-2017 End: 07-21-2017 Appointment Appointment [facility] Work Phone: Start: 07-14-2017 End: 01-22-2017 *Hepatic Function Panel *[facility] Work Phone: Start: 07-14-2017 End: 01-22-2017 Lipid panel [AGGREGATE] *Lipid Profile CC PCP [facility] Work Phone: Start: 02-21-2017 End: 02-21-2017 Appointment Appointment [facility] Work Phone: Start: 02-12-2017 End: 01-21-2017 Cardioversion Cardioversion [facility] Work Phone: Start: 02-10-2017 End: 01-21-2017 *BMP *BMP [facility] Work Phone: Start: 02-05-2017 End: 02-05-2017 Appointment Appointment [facility] Work Phone: Start: 02-05-2017 End: 02-05-2017 *BMP *BMP [facility] Work Phone: Start: 01-16-2017 End: 01-16-2017 Appointment Appointment [facility] Work Phone: Start: 01-10-2017 End: 01-10-2017 Appointment Appointment [facility] Work Phone: Start: 01-10-2017 End: 01-10-2017 DJN DJN [facility] Work Phone: Start: 01-10-2017 End: 01-10-2017 Electrocardiogram, complete EKG (In office) [facility] Work Phone: Start: 01-10-2017 End: 01-10-2017 Follow Up Appt 6 months Follow Up Appt 6 months [facility] Work Phone: Start: 01-08-2017 End: 01-09-2017 *BMP *BMP [facility] Work Phone: Start: 01-08-2017 End: 01-09-2017 *Hepatic Function Panel *Hepatic Function Panel [facility] Work Phone: Start: 01-08-2017 End: 01-09-2017 aPTT *PTT-Partial Thromboplastin Time [facility] Work Phone: Start: 01-08-2017 End: 01-09-2017 aPTT Coag time (PPP) *PTT-Partial Thromboplastin Time [facility] Work Phone: Start: 01-08-2017 End: 01-09-2017 CBC W Auto Differential panel - Blood *CBC without Diff [employer] Work Phone: Start: 01-08-2017 End: 01-09-2017 Chest x-ray X-Ray, Chest, PA & Lateral [employer] Work Phone: Start: 01-08-2017 End: 01-09-2017 Coagulation factor induced.INR assay in platelet poor plasma *PT/INR [employer] Work Phone: Start: 01-08-2017 End: 01-08-2017 Left Heart Cath Left Heart Cath [employer] Work Phone: Start: 01-08-2017 End: 01-09-2017 Lipid panel [AGGREGATE] *Lipid Profile CC PCP [employer] Work Phone: Start: 12-25-2016 End: 12-25-2016 Appointment Appointment [facility] Phone: Start: 12-25-2016 End: 12-25-2016 Follow Up BP Check Follow Up BP Check [facility] Phone: Start: 12-10-2016 End: 12-10-2016 Appointment Appointment [employer] Work Phone: Start: 12-10-2016 End: 12-10-2016 DEMARION REBECCA [employer] Work Phone: Start: 12-10-2016 End: 12-10-2016 Echocardiography Echocardiogram (complete) [employer] Work Phone: Start: 12-10-2016 End: 12-10-2016 Electrocardiogram, complete EKG (In office) [employer] Work Phone: Start: 12-10-2016 End: 12-10-2016 Follow Up Appt 1 month Follow Up Appt 1 month [facility] Phone: Start: 12-10-2016 End: 12-10-2016 Stress Echocardiogram (treadmill) Stress Echocardiogram (treadmill) [facility] Phone: Start: 09-07-2014 RSV Vaccine (1 - 1-dose 75+ series) RSV Vaccine (1 - 1-dose 75+ series) [facility] Start: 07-21-2014 Urine microalbumin profile [facility] Start: 04-09-2010 End: 12-10-2016 Flu vaccine, 3 yrs & >, im Flu vaccine > age 3 yr (with preservative) [facility] Work Phone: Start: 1999 RSV Vaccine (1 - 1-dose 60+ series) RSV Vaccine (1 - 1-dose 60+ series) [facility] Aldosterone [Mass/ti me] in 24 hour Urine ALDOSTERONE 24 HR, URINE Lab Routine Disorder of adrenal gland (HCC) Ordered: 01/14/2024 [facility] Comment on above: Ordered: 01/14/2024 CATECHOLAMINES FRACTIONATED, URINE FREE CATECHOLAMINES FRACTIONATED, URINE FREE Lab Routine Disorder of adrenal gland (HCC) Ordered: 01/14/2024 [facility] Comment on above: Ordered: 01/14/2024 CORTISOL SALIVA CORTISOL SALIVA Lab Routine Fatigue, unspecified type Ordered: 05/21/2024 [facility] Comment on above: Ordered: 05/21/2024 CREATINE 24 HR UR CREATINE 24 HR UR Lab Routine Disorder of adrenal gland (HCC) Ordered: 01/14/2024 [facility] Comment on above: Ordered: 01/14/2024 End: 02-03-2025 CT Abdomen and Pelvis W contrast IV CT ABD/PEL W IVCON Radiology STAT Weight loss Left upper quadrant abdominal mass Intra-abdominal and pelvic swelling, mass and lump, unspecified site 1 Occurrences starting 01/05/2024 until 02/03/2025 [facility] Comment on above: 1 Occurrences starting 01/05/2024 until 02/03/2025 End: 09-25-2025 CT Abdomen and Pelvis W contrast IV CT ABD/PEL W IVCON Radiology Routine H/O total adrenalectomy (HCC) 1 Occurrences starting 08/26/2024 until 09/25/2025 [facility] Work Phone: Comment on above: 1 Occurrences starting 08/26/2024 until 09/25/2025 CT Abdomen and Pelvi s W contrast IV CT ABD/PEL W IVCON Radiology Routine H/O total adrenalectomy (HCC) 09/07/2024 3:38 PM EDT [facility] Work Phone: End: 09-24-2022 ECG COMPLETE ECG COMPLETE ECG Routine Paroxysmal atrial fibrillation (HCC) SOB (shortness of breath) 1 Occurrences starting 09/24/2021 until 09/24/2022 [facility] Work Phone: Comment on above: 1 Occurrences starting 09/24/2021 until 09/24/2022 Hemoglobin.sheila vanegaslower [Presence] in Stool by Immunoassay IMMUNOCHEMICAL FECAL OCCULT BLOOD TEST Lab Routine Blood in stool Ordered: 01/05/2024 [facility] Work Phone: Comment on above: Ordered: 01/05/2024 Hemoglobin.sheila vanegaslower [Presence] in Stool by Immunoassay IMMUNOCHEMICAL FECAL OCCULT BLOOD TEST Lab Routine Abnormal stool test Ordered: 06/18/2024 [facility] Work Phone: Comment on above: Ordered: 06/18/2024 METANEPHRINES 24H UR METANEPHRIN ES 24H UR Lab Routine Disorder of adrenal gland (HCC) Ordered: 01/14/2024 [facility] Comment on above: Ordered: 01/14/2024 End: 05-07-2025 MR Brain WO contrast MRI BRAIN W QUANT WO IVCON Radiology Routine Cognitive impairment, mild, so stated 1 Occurrences starting 04/07/2024 until 05/07/2025 [facility] Work Phone: Comment on above: 1 Occurrences starting 04/07/2024 until 05/07/2025 End: 05-07-2025 MR Unspecified body region 3D post processing MRI 3D POST PROCESSING Radiology Routine Cognitive impairment, mild, so stated 1 Occurrences starting 04/07/2024 until 05/07/2025 [facility] Comment on above: 1 Occurrences starting 04/07/2024 until 05/07/2025 MR Unspecified body region 3D post processing MRI 3D POST PROCESSING Radiology Routine Cognitive impairment, mild, so stated 05/28/2024 12:50 PM EST [facility] Work Phone: Patient Education [facility] Work Phone: Patient referral [facility] Work Phone: PSA/PROSTATE SPECIFI C ANTIGEN SCREENING PSA/PROSTATE SPECIFIC ANTIGEN SCREENING Lab Routine Benign prostatic hyperplasia without lower urinary tract symptoms Screening for prostate cancer 01/10/2024 11:37 AM EDT [facility] REFER FOR ADMIT INTERVIEW REFER FOR ADMIT INTERVIEW Procedures Routine Adrenal mass greater than 4 cm in diameter (HCC) Ordered: 02/19/2024 [facility] Work Phone: Comment on above: Ordered: 02/19/2024 URINE FREE CORTISOL BY LC-MS/MS URINE FREE CORTISOL BY LC-MS/MS Lab Routine Disorder of adrenal gland (HCC) Ordered: 01/14/2024 [facility] Comment on above: Ordered: 01/14/2024 US Carotid arteries [facility] End: 02-12-2026 XR Toes - left 3 Views XR TOE AP/LAT/OBL LEFT Radiology STAT Pain of toe of left foot 1 Occurrences starting 01/13/2025 until 02/12/2026 [facility] Work Phone: Comment on above: 1 Occurrences starting 01/13/2025 until 02/12/2026 [facility] Immunizations Immunization Date Immunization Notes Care Provider Fa [facility] 03-31-2024 influenza, high dose seasonal, preservative-free Enrrique Carmona MD Work Phone: [facility] 03-31-2024 influenza virus vacc ine, unspecified formulation Enrrique Carmona MD Work Phone: [facility] 03-31-2023 influenza (HD-IIV4) vaccine, age 65+ yr, high dose, quadrivalent, PF (FLUZONE HIGH-DOSE) Enrrique Carmona MD Work Phone: [facility] 03-31-2023 influenza, high dose seasonal, preservative-free Enrrique Carmona MD Work Phone: [facility] 03-31-2023 influenza virus vacc ine, unspecified formulation Enrrique Carmona MD Work Phone: [facility] 03-28-2022 influenza, high-dose , quadrivalent vaccine (FLUZONE HIGH DOSE QUADRIVALENT) Enrrique Carmona MD Work Phone: [facility] 08-09-2021 zoster vaccine recombinant Enrrique Caromna MD Work Phone: [facility] 05-22-2021 zoster vaccine recombinant Enrrique Carmona MD Work Phone: [facility] 03-26-2021 pneumococcal polysaccharide vaccine, 23 valent Enrrique Carmona MD Work Phone: [facility] 03-12-2021 influenza, high-dose , quadrivalent vaccine (FLUZONE HIGH DOSE QUADRIVALENT) Enrrique Carmona MD Work Phone: [facility] 09-14-2020 COVID-19 vaccine, ag e 12+ yr (PFIZER-BIONTECH - PURPLE TOP) Enrrique Carmona MD Work Phone: [facility] 08-27-2020 COVID-19 vaccine, ag e 12+ yr (PFIZER-BIONTECH - PURPLE TOP) Enrrique Carmona MD Work Phone: [facility] 03-20-2020 influenza, high-dose , quadrivalent vaccine (FLUZONE HIGH DOSE QUADRIVALENT) Enrrique Carmona MD Work Phone: [facility] 04-08-2019 influenza, high dose seasonal, preservative-free Enrrique Carmona MD Work Phone: [facility] 03-03-2018 influenza, high dose seasonal, preservative-free Enrrique Carmona MD Work Phone: [facility] Work Phone: 03-07-2017 influenza, high dose seasonal, preservative-free Enrrique Carmona MD Work Phone: [facility] 04-10-2015 pneumococcal conjuga te vaccine, 13 valent Enrrique Carmona MD Work Phone: [facility] 03-07-2015 influenza, seasonal, injectable Enrrique Carmona MD Work Phone: [facility] 01-25-2015 hepatitis A and hepatitis B vaccine Enrrique Carmona MD Work Phone: [facility] 10-19-2014 yellow fever vaccine Enrrique Carmona MD Work Phone: [facility] 08-24-2014 hepatitis A and hepatitis B vaccine Enrrique Carmona MD Work Phone: [facility] 07-20-2014 hepatitis A and hepatitis B vaccine Enrrique Carmona MD Work Phone: [facility] 07-20-2014 tetanus and diphther ia toxoids, adsorbed, preservative free, for adult use (5 Lf of tetanus toxoid and 2 Lf of diphtheria toxoid) Enrrique Carmona MD Work Phone: [facility] 07-20-2014 typhoid vaccine, unspecified formulation Enrrique Carmona MD Work Phone: [facility] 07-20-2014 typhoid capsular polysaccharide vaccine Enrrique Carmona MD Work Phone: [facility] 03-02-2014 influenza, seasonal, injectable Enrrique Carmona MD Work Phone: [facility] 04-24-2013 influenza virus vacc ine, unspecified formulation Enrrique Carmona MD Work Phone: [facility] 06-26-2012 zoster vaccine, live Enrrique Carmona MD Work Phone: [facility] Work Phone: 03-14-2012 influenza virus vacc ine, unspecified formulation Enrrique Carmona MD Work Phone: [facility] 03-13-2011 influenza virus vacc ine, whole virus Enrrique Carmona MD Work Phone: [facility] 04-09-2010 influenza, seasonal, injectable Enrrique Carmona MD Work Phone: [facility] 04-09-2010 influenza, seasonal, injectable [facility] Work Phone: 04-05-2009 influenza virus vacc ine, unspecified formulation Enrrique Carmona MD Work Phone: [facility] Work Phone: 04-29-2008 influenza virus vacc ine, unspecified formulation Enrrique Carmona MD Work Phone: [facility] 06-11-2007 influenza virus vacc ine, unspecified formulation Enrrique Carmona MD Work Phone: [facility] 05-16-2006 tetanus and diphther ia toxoids, adsorbed, preservative free, for adult use (2 Lf of tetanus toxoid and 2 Lf of diphtheria toxoid) Enrrique Carmona MD Work Phone: [facility] Work Phone: 04-26-2006 influenza virus vacc ine, unspecified formulation Enrrique Carmona MD Work Phone: [facility] Work Phone: 07-17-2005 pneumococcal polysaccharide vaccine, 23 valent Enrrique Carmona MD Work Phone: [facility] Work Phone: 04-16-2005 influenza virus vacc ine, unspecified formulation Enrrique Carmona MD Work Phone: [facility] Work Phone: Payers Date Payer Category Payer Medicare (Managed Care) [employer] [place] [id number] 2024 Self-pay [id number] 2021 Medicare [employer] MEDICARE A ETNA MEDICARE O [id number] 2021-Present [phone] [address] [place] [address] [facility] [id number] 2021 Private Health Insurance 101 [id number] 2016 Unknown [id number] 2016 Unknown EDIE IRIZARRY [place] [id number] 2016-2021 [address] [place] [address] Indemnity [id number] 2004 Medicare [id number] 2004 Medicare [id number] Unknown [id number] Unknown [id number] Unknown [id number] Unknown [id number] Unknown [id number] Unknown [id number] Social History Date Type Detail Facility Start: 08-06-2017 End: 02-10-2024 Tobacco smoking status NHIS Ex-smoker [facility] Start: 09-24-2021 End: 01-13-2025 Alcohol intake Current drinker of alcohol (finding) [facility] Start: 1940 Sex Assigned At Not on file [facility] Start: 03-20-2021 End: 09-24-2021 Exposure to SARS-CoV-2 (event) Not sure [facility] History of tobacco use Current smoker [facility] History of tobacco use Cigarette Smoker [facility] Start: 08-06-2017 End: 02-10-2024 Tobacco use and exposure Smokeless tobacco non-user [facility] Start: 03-29-2022 History SDOH Social Connections Phone 98 [facility] Start: 03-29-2022 History SDOH Social Connections Living 3 [facility] Start: 05-31-2022 End: 04-23-2023 Tobacco smoking status NHIS Unknown if ever smoked [facility] Start: 11-02-2020 None [facility] Start: 11-02-2020 Non-smoker [facility] Start: 1940 Sex Assigned At Male [facility] Start: 04-29-2022 Tobacco Comment Quit 1975 1-2 cig daily on the weekends [facility] Start: 03-29-2022 End: 02-14-2024 History of Social function [facility] Start: 03-29-2022 End: 02-14-2024 Social connection and isolation panel [facility] In a typical week, h ow many times do you talk on the telephone with family, friends, or neighbors? Patient refused [facility] Are you now , , , , never or living with a partner? [facility] (I/We) worried wheth er (my/our) food would run out before (I/we) got money to buy more. DK or Refused [facility] Do you belong to any clubs or organizations such as buddhist groups, unions, fraternal or athletic groups, or school groups? No [facility] (I/We) worried whe er (my/our) food would run out before (I/we) got money to buy more. Never true [facility] Work Phone: Start: 04-07-2024 Education 13 [facility] Functional Status Date Assessment Result Facility 03-09-2024 Are you deaf, or do you have serious difficulty hearing No 03/09/2024 3:33 PM Leelee Tuttle, RN No [facility] 03-09-2024 Are you blind, or do you have serious difficulty seeing, even when wearing glasses No 03/09/2024 3:33 PM Leelee Tuttle, RN No [facility] 03-09-2024 Do you have serious difficulty walking or climbing stairs No 03/09/2024 3:33 PM Leelee Tuttle, RN No [facility] 03-09-2024 Do you have difficul ty dressing or bathing No 03/09/2024 3:33 PM EDT Leelee Mishra, RN No [facility] 03-09-2024 Because of a physica l, mental, or emotional condition, do you have difficulty doing errands alone such as visiting a physician's office or shopping No 03/09/2024 3:33 PM EDT Leelee Mishra, RN No [facility] Mental Status Date Assessment Result Facility 03-09-2024 Because of a physica l, mental, or emotional condition, do you have serious difficulty concentrating, remembering, or making decisions No 03/09/2024 3:33 PM EDT Leelee Mishra, JODEE No [facility] 04-23-2023 Cognitive function Level Of Cons ciousness Awake;Alert;Appropriate [facility] Work Phone: 03-31-2022 Cognitive function Level Of Cons ciousness Awake;Alert;Appropriate;Fol lows Commands [facility] Work Phone: Clinical Notes 08-01-2017 to 01-13-2025 Telephone Encounter - Merry Gage MA - 01/13/2025 9:11 AM EDTTelephone Encounter - Merry Gage MA - 01/13/2025 9:11 AM EDTPatient Enrrique Saravia MD - 12/22/2024 5:18 PM EDT Note Date & Type Note Facility 01-13-2025 Telephone encounter Note Pharmacy notified Merry Gage MA [facility] 01-13-2025 Miscellaneous Notes Pharmacy notified Merry Gage MA Please call pharmacy and cancel colchicine prescription. Arely Wilkins APRN.CNP documented in this encounter [facility] 01-13-2025 Instructions Arely Wilkins APRN.CNP - 01/13/2025 8:58 AM EDT - Fill the prednisone taper prescription at [facility] and begin it with food as directed: take 4 tablets daily for 3 days, then 3 tablets daily for 3 days, then 2 tablets daily for 3 days, then 1 tablet daily for 3 days. - Do not take any clsq-mlo-wvpgygz anti-inflammatory pills (Aleve, Advil, Motrin, ibuprofen) while on prednisone; you may continue Tylenol as needed. - Go downstairs today to have your blood drawn for labs and get an x-ray of your toe before you leave the clinic. - Follow the low-purine diet handout: avoid red meats, organ meats, seafood, dried beans/peas/lentils, yeast extracts, and limit high-purine vegetables. - Continue using your heat packs if they relieve pain. - Watch for signs of infection--if redness spreads up your foot, you develop fever or chills, or the toe opens and drains, go to the hospital immediately. - If your pain and swelling are not noticeably better by Friday, call the office for re-evaluation. - Complete the lab work ordered by Dr. Carmona by January 21 as instructed. documented in this encounter [facility] 01-13-2025 Telephone encounter Note Please call pharmacy and cancel colchicine prescription. Arely Wilkins APRN.CNP [facility] 01-13-2025 History of Presen t illness Narrative 01/13/2025 Patient presents with: Toe Pain (Big): Left big toe, toe is red and swollen, painful x couple days, reports hx of gout Recording using ambient [employer] software for draft documentation of the visit was discussed with the patient/authorized franchise sales representative; all questions welcomed and answered. Patient/authorized franchise sales representative agreed to proceed SUBJECTIVE: This is a 84 year old that is here today for Above Complaints. Left Great Toe Pain: - Acute onset of aching pain in the right great toe began on Friday night. - Pain is less severe today compared to Friday and Friday but remains sore. - No recent trauma or injury to the toe; unsure if it was bumped. - Pain is more pronounced at night; alleviated by applying heat. - Denies fever or chills. - Has not taken any medication for the pain. Gout: - History of gout with a flare-up 5 years ago; has not had issues since. - Discontinued allopurinol after the last flare-up. - Recent dietary intake includes fried fish, chicken, and organ meats (chicken giblets). - Occasionally consumes sardines. - Drinks lemon water. - Denies alcohol consumption. - Asks about the safety of bananas for gout. Diabetes: - Reports elevated blood sugar levels. - Decreased sensation in both great toes. PAST MEDICAL HISTORY Diagnosis Date Anxiety state, unspecified Benign neoplasm of colon Carotid stenosis Depressive disorder, not elsewhere classified Diverticulosis of colon (without mention of hemorrhage) DM (diabetes mellitus) (HCC) Gout Hearing loss wears hearing aids Hypertrophy of prostate without urinary obstruction and other lower urinary tract symptoms (LUTS) Impotence of organic origin Obesity, unspecified Other and unspecified hyperlipidemia Personal history of colonic polyps Skin cancer, basal cell [employer] [place] Unspecified essential hypertension ALLERGIES Cephalosporins, Doxycycline, and Mirtazapine MEDICATIONS Current Outpatient Medications Medication Sig metFORMIN ER (GLUCOPHAGE XR) 500 mg 24 hr tablet Take 1 tablet by mouth daily with breakfast. atorvastatin (LIPITOR) 10 mg tablet Take 1 tablet by mouth once daily. rivaroxaban (XARELTO) 20 mg tablet Take 20 mg by mouth every other day. dexAMETHasone (DECADRON) 1 mg tablet Take the tablet at 11 pm and go for labs the next morning on fasting at 8 am cloNIDine HCl (CATAPRES) 0.1 mg tablet Take 1 tablet by mouth once daily. lisinopril (ZESTRIL) 20 mg tablet Take 1 tablet by mouth once daily. acetaminophen/diphenhydramine (TYLENOL PM ORAL) Take by mouth. amLODIPine (NORVASC) 5 mg tablet Take 1 tablet by mouth once daily. furosemide (LASIX) 20 mg tablet Take 1 tablet by mouth once daily as needed. For weight increase of 3 lb carvedilol (COREG) 3.125 mg tablet Take 3.125 mg by mouth twice daily with meals. Cholecalciferol, Vitamin D3, 2,000 unit cap Take 1 tablet by mouth once daily. colchicine 0.6 mg capsule Take 2 tablets today when you get prescription, then in one hour take one pill. Thereafter take one pill twice a day until pain and swelling resolve predniSONE (DELTASONE) 10 mg tablet Take 4 tabs daily for 3 days, then 2 tabs daily for 3 days, then 1 tab daily for 3 days with food. OTC PRODUCT THC gummy (Patient not taking: Reported on 12/22/2024) No current facility-administered medications for this visit. Medications and allergies reviewed by this provider. SOCIAL HISTORY Social History Tobacco Use Smoking status: Former Types: Cigarettes Smokeless tobacco: Never Tobacco comments: Quit 1975 1-2 cig daily on the weekends Vaping Use Vaping status: Never Used Substance Use Topics Alcohol use: Yes Comment: rarely Drug use: No REVIEW OF SYSTEMS GENERAL: No weight loss, malaise or fevers OBJECTIVE: BP 116/80 (BP Site: Left Arm, BP Position: Sitting, BP Cuff Size: Regular Adult) Pulse 81 Temp 36 C (96.8 F) (Left Tympanic) Wt 91.9 kg (202 lb 9.6 oz) SpO2 98% BMI 29.07 kg/m . Vital signs reviewed by this provider. GENERAL: NAD, alert and oriented. LEFT FOOT: great toe with erythema and mild swelling. TTP. With cap refill WNL. No excessive warmth. 1+ pedal pulse. No open wounds. Some peeling skin top of toe DTaP,Tdap,Td Vaccine(1 - Tdap) due on 07/21/2014 RSV Vaccine(1 - 1-dose 75+ series) Never done Diabetic Foot Exam due on 09/27/2023 Advance Directive Discussion due on 06/23/2024 Medicare Advantage Annual Wellness Visit Never done Influenza Vaccine(1) due on 02/21/2025 Urine Albumin:Creatinine Ratio due on 06/18/2025 HbA1C due on 06/24/2025 Dilated Retinal Exam due on 08/17/2025 LDL Cholesterol due on 12/22/2025 Shingrix Vaccine Completed Pneumococcal Vaccine: 50+ Completed 1. Pain of toe of left foot (M79.675) - Suspected gout flare; history of gout with last flare 5 years ago. - Exam reveals tenderness primarily on the dorsal aspect of the toe; no signs of infection such as fever, chills, or drainage. - Ordered labs and a stat X-ray to rule out other potential causes and assess for any signs of infection or injury. - Initiated prednisone taper due to potential interaction between colchicine and carvedilol. Prednisone prescribed as follows: 4 tablets daily for 3 days, 3 tablets daily for 3 days, 2 tablets daily for 3 days, then 1 tablet daily for 3 days, all with food. - Advised against taking any additional NSAIDs such as Aleve, Advil, Motrin, or ibuprofen while on prednisone. Tylenol is permissible. - Provided dietary education on low-purine diet to prevent future gout flares; printed dietary guidelines for patient. - Patient to monitor for signs of infection, including spreading erythema, fever, chills, or drainage. If symptoms worsen or do not improve by Friday, patient to seek immediate medical attention. - Follow-up appointment to be scheduled if symptoms persist or worsen. Arely Podlogvinod, OPTICAL MECHANIC APPRENTICE.CANDLES POURER Prescription instructions reviewed with patient as applicable. Patient advised if symptoms do not improve or if symptoms worsen sooner, to contact their primary care physician. Potential red flag symptoms discussed with the patient. Reviewed appropriate action plan to take if red flag symptoms occur. Patient agreeable to treatment plan. [id number] OVERALL COMPLEXITY Problem Complexity: Moderate Data Level: Low Risk Level: Moderate Overall MDM complexity (2/3 must be met or exceeded): Moderate PROBLEMS SECTION: 1. Pain of toe of left foot (M79.675) - Undiagnosed new problem with uncertain prognosis One undiagnosed new problem with uncertain prognosis (Moderate complexity) Problem complexity level: Moderate DATA SECTION: - Review of prior external note(s) from each unique source: - Review of the result(s) of each unique test: - Ordering of each unique test: X-ray; labs - 2 unique tests ordered - Assessment requiring an independent historian(s): - Independent interpretation of a test performed by another physician/other qualified health resident care spec: - Discussion of management or test interpretation with external physician/other qualified health resident care spec/appropriate source: Data complexity level: Limited; meets the requirements of at least 1 out of 2 categories RISKS SECTION: Prescription drug management (initiation of prednisone taper for gout flare) - Moderate complexity Stat X-ray (diagnostic imaging without contrast) - Minimal complexity Dietary education (low-purine diet) - Minimal complexity Risks complexity level (highest from above): Moderate documented in this encounter [facility] 12-27-2024 Telephone encounter Note Unless severe gi issues, they usually do not cause that. Can we triage it, likely needs to see one of us. Something else may be causing it. [facility] 12-27-2024 Miscellaneous Notes Unless severe gi issues, they usually do not cause that. Can we triage it, likely needs to see one of us. Something else may be causing it. documented in this encounter [facility] 12-22-2024 Note [facility] 12-22-2024 History of Presen t illness Narrative NIMA Quesada is an 84-year-old male with a history of depression, DM, AFib, and HTN, presenting for a recheck. Accompanied by his daughter. HPI Depression: - Worsened since 's passing last summer. - Stopped sertraline due to feeling "crazy" and "antsy." - Low energy, excessive sleep, and feeling "foggy." - Denies suicidal ideation; states, "I'm not going to do that to the family." - Previously attended three counseling sessions. - Family believes he needs professional help. Adrenal Mass: - Large adrenal mass removed in the past; pathology was benign. - Recent endocrinology follow-up in August with normal labs. Lightheadedness: - Persistent lightheadedness and dizziness; no syncope or near-syncope. Has been there for some time. - Weight Clerk aware; recent carotid evaluation showed no significant changes. - Denies room spinning or dizziness when lying down. - Wants labs checked before checking other issues. AFib: - Taking Xarelto every other day due to bruising concerns. - Recent cardiology visit on 12/09/24. - Discussed risks of noncompliance. DM: - Stopped metformin six months ago. - Last A1c was 6.4; previous A1c was nearly 8. - Denies increased thirst or polyuria. - Avoids sweets and soda. - Has history of noncompliance. Tends to follow internet discussions rather than discuss with his physicians. HTN: - Lisinopril dosage reduced to 10 mg daily by powderer. Weight Gain: - Weight increased from 170 lbs to 250 lbs since 's passing. - Limited exercise due to knee pain. SOB: - SOB and edema in hands; taking Lasix once or twice a week as needed. MEDICATIONS: Current Outpatient Medications Medication Sig rivaroxaban (XARELTO) 20 mg tablet Take 20 mg by mouth every other day. cloNIDine HCl (CATAPRES) 0.1 mg tablet Take 1 tablet by mouth once daily. lisinopril (ZESTRIL) 20 mg tablet Take 1 tablet by mouth once daily. (Patient taking differently: Take 10 mg by mouth once daily. Per Dr Jean-Baptiste) carvedilol (COREG) 3.125 mg tablet Take 3.125 mg by mouth twice daily with meals. dexAMETHasone (DECADRON) 1 mg tablet Take the tablet at 11 pm and go for labs the next morning on fasting at 8 am acetaminophen/diphenhydramine (TYLENOL PM ORAL) Take by mouth. OTC PRODUCT THC gummy (Patient not taking: Reported on 12/22/2024) amLODIPine (NORVASC) 5 mg tablet Take 1 tablet by mouth once daily. furosemide (LASIX) 20 mg tablet Take 1 tablet by mouth once daily as needed. For weight increase of 3 lb Cholecalciferol, Vitamin D3, 2,000 unit cap Take 1 tablet by mouth once daily. No current facility-administered medications for this visit. ALLERGIES: ALLERGIES Allergen Reactions Cephalosporins Rash Doxycycline Rash photosensitivity dermatitis Mirtazapine Unknown Dizziness PAST MEDICAL HISTORY Diagnosis Date Anxiety state, unspecified Benign neoplasm of colon Carotid stenosis Depressive disorder, not elsewhere classified Diverticulosis of colon (without mention of hemorrhage) DM (diabetes mellitus) (HCC) Gout Hearing loss wears hearing aids Hypertrophy of prostate without urinary obstruction and other lower urinary tract symptoms (LUTS) Impotence of organic origin Obesity, unspecified Other and unspecified hyperlipidemia Personal history of colonic polyps Skin cancer, basal cell [employer] [place] [employer] Unspecified essential hypertension PAST SURGICAL HISTORY Procedure Laterality Date ADRENALECTOMY Left 03/05/2024 CARDIAC CATH 01/16/2017 CARDIOVERSION 2017 COLONOSCOPY FLX DX W/COLLJ SPEC WHEN PFRMD 03/03/2014 Colonoscopy COLONOSCOPY FLX DX W/COLLJ SPEC WHEN PFRMD 05/31/2019 Colonoscopy COLSC FLX W/RMVL OF TUMOR POLYP LESION SNARE TQ 05/27/2007 COLSC FLX W/RMVL OF TUMOR POLYP LESION SNARE TQ 08/09/2010 PAST SURGICAL HISTORY OF 1997 arthroscopic lt knee surg PAST SURGICAL HISTORY OF 1999 Rt foot great toe fusion TONSILLECTOMY & ADENOIDECTOMY <AGE 11 FAMILY HISTORY Problem Relation Age of Onset GI Mother Cancer Father lymphoma Coronary Artery Disease Brother Social History Tobacco Use Smoking status: Former Types: Cigarettes Smokeless tobacco: Never Tobacco comments: Quit 1975 1-2 cig daily on the weekends Vaping Use Vaping status: Never Used Substance Use Topics Alcohol use: Yes Comment: rarely Drug use: No Reviewed current medications, allergies, past medical history, surgical history, family history and social history today. REVIEW OF SYSTEMS Constitutional: (+) weight gain, (+) fatigue, (+) hypersomnia Cardiovascular: (-) syncope, (-) peripheral edema Respiratory: (+) shortness of breath Musculoskeletal: (+) knee pain Neurological: (+) trouble concentrating, (+) lightheadedness, (+) dizziness, (+) cognitive fog, (+) weakness, (-) vertigo Psychiatric: (+) depressed mood, (-) suicidal ideation Hematologic/Lymphatic: (+) easy bruising HEALTH MAINTENANCE: Reviewed health maintenance issues today and recommended the following in detail. DTaP,Tdap,Td Vaccine(1 - Tdap) due on 07/21/2014 RSV Vaccine(1 - 1-dose 75+ series) Never done Diabetic Foot Exam due on 09/27/2023 Covid-19 Vaccine(2023- season) due on 02/22/2024 LDL Cholesterol due on 04/03/2024 Advance Directive Discussion due on 06/23/2024 Medicare Advantage Annual Wellness Visit Never done HbA1C due on 12/17/2024 LAB REVIEWED: Labs: (August 2024) Endocrinology labs: All results within normal limits. A1c: 6.4 A1c: 8 Imaging: (12/09/2024) Carotid Ultrasound: No significant change from prior. Tests: Surgical pathology, adrenal mass: Benign. VITALS: BP 118/72 Pulse 88 Wt 91.2 kg (201 lb) SpO2 96% BMI 28.84 kg/m Last 4 Encounter Wt Readings: Date: Wt: 12/22/2024 91.2 kg (201 lb) 09/16/2024 91.2 kg (201 lb) 07/05/2024 85.7 kg (189 lb) 06/18/2024 87.5 kg (193 lb) PHYSICAL EXAMINATION: GENERAL: NAD, alert and oriented. SKIN: Unremarkable, no rash or skin lesions. NECK: Supple, no lymphadenopathy, normal thyroid, no carotid bruits. LUNGS: Clear to auscultation bilaterally, no wheezes/rhonchi/rales. HEART: Regular rate and rhythm, no murmurs. No ectopy. EXTREMITIES: Normal, no deformities, no skin discoloration, no edema. NEURO: Awake, alert and oriented x3, cranial nerves II-XII grossly intact, normal gait, no involuntary motions. ASSESSMENT AND PLAN 1. Essential hypertension (I10) - Lisinopril dosage reduced to 10 mg daily by cardiology on 12/09/24. - Blood pressure readings are stable; continue current dosage. 2. Paroxysmal atrial fibrillation (HCC) (I48.0) - Non-compliance with Xarelto, taking every other day instead of daily as prescribed. - Educated on the increased risk of stroke with irregular dosing. - Advised to resume daily Xarelto as prescribed. 3. 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 4. Type 2 diabetes mellitus without complication, without long-term current use of insulin (HCC) (E11.9) - Non-compliance with metformin for the past 6 months. - Previous A1c was 6.4; two years ago, A1c was nearly 8. - Ordered comprehensive metabolic panel (CMP) and A1c to assess current glycemic control. - Discussed the importance of metformin as the standard of care for diabetes management. - Advised to hold off on restarting metformin until lab results are reviewed. 5. Left adrenal mass (HCC) (E27.8) - Mass was benign; recent endocrinology follow-up in August showed normal adrenal function. 6. Degeneration of intervertebral disc of lumbar region, unspecified whether pain present (M51.369) stable. 7. Chronic depression (F32.A) 8. Depression, major, single episode, moderate (HCC) (F32.1) - Symptoms include low energy, excessive sleep, and feelings of wanting to "check out." - Previous treatment with sertraline was discontinued due to side effects. - Ordered thyroid panel (TSH, T4) to rule out thyroid dysfunction contributing to depressive symptoms. - Placed a consult for behavioral health; provided a list of counselors. - Follow-up in 6-8 weeks to reassess mental health status and consider pharmacological intervention if necessary. - Declines meds. 9. Anxiety state (F41.1) - as above. 10. Bilateral carotid artery stenosis (I65.23) - Recent evaluation by cardiology on 12/09/24; no significant changes noted. - Awaiting report from cardiology. 11. 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 (See patient after visit summary for additional instructions to patient) Enrrique Carmona MD Recording using ambient [employer] software for draft documentation of the visit was discussed with the patient/authorized franchise sales representative; all questions welcomed and answered. Patient/authorized franchise sales representative agreed to proceed documented in this encounter [facility] 12-22-2024 Instructions Enrrique Carmona MD - 12/22/2024 2:47 PM EDT [facility] - [facility] Therapy[facility]Counsel[facility] [address] [place] [address] [facility] [address] [place] [address] [employer] [address] [address] [facility] [address] [place] [address] [facility] [address] [facility] [address] [address] [place] [address] [facility] [address] [place] [place] [address] [employer] [address] [place] [address] [facility] [address] [id number] ( - Continue taking your blood thinner (Xarelto) every day as prescribed; do not switch to zngxt-dxpmm-kid dosing. - Continue your blood pressure pill (lisinopril 10 mg) once daily. - Use your water pill (Lasix) only as needed for new or worsening leg swelling or shortness of breath: Weigh yourself each morning. If you gain more than 4 pounds in 24 hours or notice increased swelling or breathing trouble, take your Lasix and call our office or your powderer. - Do not stop or change any medications on your own based on what you read online - Hold any changes to your diabetes (metformin) or depression medications until we review today s lab results. - Lab tests were drawn today (non-fasting): Thyroid panel (TSH, free T4) Comprehensive metabolic panel (kidney/liver function, electrolytes, blood sugar) Complete blood count Vitamin D level Lipid panel (cholesterol) A1c (average blood sugar) - A behavioral health referral has been placed. Call the list of counselors we provided to schedule grief and depression support. - Avoid driving until your dizziness and lightheadedness improve and we ve reassessed your symptoms. documented in this encounter [facility] 12-09-2024 Evaluation note Diagnosis Onset Date Resolution Bilateral carotid artery stenosis chronic December 09, 2024 12:52pm Dyspnea chronic December 09 12:52pm Essential hypertension chronic Ju 2024 12:52pm Hyperlipidemia chronic December 09, 2024 12:52pm Persistent atrial fibrillation chronic December 09, 2024 12:52pm [facility] Work Phone: [phone]) 406-656803-27-2025 Instructions* Patient Instructions* Obie Marcelo MD - 09/16/2024 12:02 PM EDT Please do the test Directions for dexamethasone suppression test: 1. Take dexamethasone 1-mg tab by mouth at 11 PM the evening before your test. 2. Go to the lab the next morning and have your blood drawn at ~8 AM. *Do not eat or drink anythingother than water from the time you take dexamethasone to the time you get your blood drawn. 3. If either of the following situations happen, DO NOT HAVE YOUR BLOOD DRAWN: A. You forget to take the pill at 11 PM the evening before B. You cannot get your blood drawn the next morning at ~8 AM C. If either situation happens, please call me to let me know Avoid any biotin containing supplements for 3 days before lab draw [facility] History of Present illness Narrative* Obie Marcelo MD - 09/16/2024 11:49 AM EDT [facility] Follow up note Referred by: Enrrique Carmona MD (PCP) Chief complaint: Large left adrenal adenoma s/p left adrenalectomy History of Present Illness: Mr. April Quesada is a 83 year old male coming today for evaluation ofsymptoms of lightheadedness. He is accompanied by his daughter today History significant for left adrenalectomy in 02/2024 In brief, He has been at his powderer, who he sees for Afib, and at the visit, when he had an echo, he was noted to have abdominal mass on that imaging, followed by CT abdomen, and was subsequently referred to Endocrine surgery for evaluation and surgery. He underwent open left adrenalectomy on 03/05/2024 Symptoms reported today, Lightheadedness randomly occurs. Trouble focusing- he lost his in Fall 2023, he reports he knows that he is in depression No salt craving, constipation No use of steroids in the past He reports gaining weight - 15 to 20 lbs in the last 3 months since surgery Drinks 1 beer every day Reports dizziness He denied any nausea, vomiting He denied any rapid weight gain prior to surgery and was at his lowest weight at the time of surgery Past Medical History: PAST MEDICAL HISTORY Diagnosis Date Anxiety state, unspecified Benign neoplasm of colon Carotid stenosis Depressive disorder, not elsewhere classified Diverticulosis of colon (without mention of hemorrhage) DM (diabetes mellitus) (HCC) Gout Hearing loss wears hearing aids Hypertrophy of prostate without urinary obstruction and other lower urinary tract symptoms (LUTS) Impotence of organic origin Obesity, unspecified Other and unspecified hyperlipidemia Personal history of colonic polyps Skin cancer, basal cell [employer] [place] [employer] Unspecified essential hypertension Surgical History: PAST SURGICAL HISTORY Procedure Laterality Date ADRENALECTOMY Left 03/05/2024 CARDIAC CATH 01/16/2017 CARDIOVERSION 2017 COLONOSCOPY FLX DX W/COLLJ SPEC WHEN PFRMD 03/03/2014 Colonoscopy COLONOSCOPY FLX DX W/COLLJ SPEC WHEN PFRMD 05/31/2019 Colonoscopy COLSC FLX W/RMVL OF TUMOR POLYP LESION SNARE TQ 05/27/2007 COLSC FLX W/RMVL OF TUMOR POLYP LESION SNARE TQ 08/09/2010 PAST SURGICAL HISTORY OF 1997 arthroscopic lt knee surg PAST SURGICAL HISTORY OF 1999 Rt foot great toe fusion TONSILLECTOMY & ADENOIDECTOMY <AGE 11 Family Medical History: FAMILY HISTORY Problem Relation Age of Onset GI Mother Cancer Father lymphoma Coronary Artery Disease Brother Social History: Social History Tobacco Use Smoking status: Former Types: Cigarettes Smokeless tobacco: Never Tobacco comments: Quit 1975 1-2 cig daily on the weekends Vaping Use Vaping status: Never Used Substance Use Topics Alcohol use: Yes Comment: rarely Drug use: No Allergies: ALLERGIES Allergen Reactions Cephalosporins Rash Doxycycline Rash photosensitivity dermatitis Mirtazapine Unknown Dizziness Current medications: Current Outpatient Medications Medication Sig cloNIDine HCl (CATAPRES) 0.1 mg tablet Take 1 tablet by mouth once daily. lisinopril (ZESTRIL) 20 mg tablet Take 1 tablet by mouth once daily. acetaminophen/diphenhydramine (TYLENOL PM ORAL) Take by mouth. OTC PRODUCT THC gummy amLODIPine (NORVASC) 5 mg tablet Take 1 tablet by mouth once daily. furosemide (LASIX) 20 mg tablet Take 1 tablet by mouth once daily as needed. For weight increase of3 lb rivaroxaban (XARELTO) 20 mg tablet Take 1 tablet by mouth daily with dinner. carvedilol (COREG) 3.125 mg tablet Take 3.125 mg by mouth twice daily with meals. Cholecalciferol, Vitamin D3, 2,000 unit cap Take 1 tablet by mouth once daily. metFORMIN ER (GLUCOPHAGE XR) 500 mg 24 hr tablet Take 1 tablet by mouth daily with breakfast. (Patient not taking: Reported on 07/05/2024) atorvastatin (LIPITOR) 20 mg tablet Take 1 tablet by mouth daily at bedtime. For cholesterol. (Patient not taking: Reported on 05/21/2024) No current facility-administered medications for this visit. Review of Systems: 10 point ROS was reviewed and negative unless indicated in the HPI Physical exam: BP 124/74 Pulse 68 Wt 91.2 kg (201 lb) SpO2 97% BMI 28.84 kg/m General Appearance: Well appearing, alert, in no acute distress, well-hydrated, well nourished, moderately built Skin: Skin color, texture, turgor normal, no suspicious rashes or lesions. Eyes: Anicteric sclera. Extraocular movements are intact. Neck: Supple, no adenopathy; thyroid symmetric, normal size, no bruits. Lungs: unlabored breathing on room air Heart: Regular rate and rhythm Abdomen: no abdominal striae, transverse abdominal surgical scar well healed Extremities: No deformities, edema, skin discoloration, no tremors Musculoskeletal: No joint swelling, deformity, or tenderness. Peripheral Pulses: Normal. Neurologic: Gait normal. Reflexes normal and symmetric. Previous laboratory results: Latest Reference Range & Units 07/19/06 10:26 12/10/12 08:45 12/27/14 09:45 07/31/17 16:35 01/06/24 15:40 01/16/24 14:17 01/19/24 06:00 03/06/24 05:19 05/21/24 12:37 05/24/24 10:00 06/18/24 12:21 T4 5.0 - 11.0 ug/dL 7.7 7.2 TSH 0.270 - 4.200 mIU/L 1.540 1.450 1.360 0.862 1.450 PTH, Intact 15 - 65 pg/mL 51 DHEA-S 16.2 - 123.0 ug/dL 85.9 ACTH 7.2 - 63.3 pg/mL 26.8 Cortisol 4.8 - 19.5 ug/dL 14.8 13.1 Aldosterone 0.0 - <35.4 ng/dL 9.6 Aldosterone Urine 3.0 - <28.1 ug/24hr 7.2 Direct Renin 3.6 - 81.6 pg/mL 38.3 Norepinephrine 1050 - 4800 pmol/L 2787 Dopamine <=240 pmol/L 193 Epinephrine (PLCAT) <=330 pmol/L 250 Catecholamine Interpretation Plasma See Note Epinephrine, Ur 24hr 1 - 14 ug/d 5 Norepinephrine, Ur 24hr 14 - 120 ug/d 56 Dopamine, Ur 24hr 71 - 485 ug/d 117 Epinephrine, Ur ratio to ECHOCARDIOGRAPH TECH 0 - 20 ug/g ECHOCARDIOGRAPH TECH 4 Norepinephrine, Ur ratio to ECHOCARDIOGRAPH TECH 0 - 45 ug/g ECHOCARDIOGRAPH TECH 44 Dopamine, Ur ratio to ECHOCARDIOGRAPH TECH 0 - 250 ug/g ECHOCARDIOGRAPH TECH 92 Catecholamines Interpretation See Note Epinephrine, Ur per vol ug/L 3 Norepinephrine, Ur per vol ug/L 34 Dopamine, Ur per vol ug/L 71 Cortisol, Saliva ug/dL 0.378 TSH, [place] 0.50 - 6.00 uIU/mL 2.04 Metanephrine, Plasma 12 - 67 pg/mL 47 Normetanephrine, Free Plasma 18 - 101 pg/mL 109 (H) (H): Data is abnormally high Latest Ref Rng 01/19/2024 Hours Collected hr 24 Hours Collected hr 24 Hours Collected hr 24 Total Volume mL 1650 Total Volume mL 1650 Total Volume mL 1650 Creatinine, Urine Per Volume mg/dL 77 Creatinine, Urine Per Volume mg/dL 77 Creatinine, Urine Per 24H 600 - 2000 mg/d 1270 Creatinine, Urine Per 24H 600 - 2000 mg/d 1270 Cortisol ug/g Therapeutic Assistant, Ur (UFRCRT) ug/g ECHOCARDIOGRAPH TECH Female Prepubertal: Less than 25 ug/g api architect 18 years and older: Less than 24 ug/g api architect : Less than 59 ug/g api architect Male Prepubertal: Less than 25 ug/g api architect 18 years and older: Less than 32 ug/g api architect 30.65 Free Cortisol ug/L, Urine ug/L 23.60 Free Cortisol ug/day, Urine <=60.0 ug/d 38.9 Free Cortisol UR, Interpretation See Note Latest Ref Rng 07/06/2024 11.42 am 09/07/2024 Creatinine 0.73 - 1.22 mg/dL 0.94 eGFR >=60 mL/min/1.73m 79 ACTH 7.2 - 63.3 pg/mL 77.9 (H) Cortisol 4.8 - 19.5 ug/dL 14.5 Legend: (H) High Operative Report: 03/05/24 FINAL DIAGNOSIS A. 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 Imaging: EXAMINATION: CT ABDOMEN AND PELVIS WITH IV CONTRAST 02/13/24 CLINICAL HISTORY: Recent diagnosis of large left adrenal mass. Patient presents emergency department with abdominal pain. TECHNIQUE: CT of the abdomen and pelvis was performed using standard technique, scanning from just above the dome of the diaphragm to the symphysis pubis. MQ: CTAP_3 Contrast: IV: 100 ml of Omnipaque 350 CT Radiation dose: Integrated Dose-length product (DLP) for this visit = 615 mGy*cm. CT Dose Reduction Employed: mAs-kVp adjusted based on patient size-age COMPARISON: 01/09/2024 CT abdomen pelvis. RESULT: Liver: No mass. Biliary: No bile duct dilation. Gallbladder is unremarkable. Spleen: No mass. No splenomegaly. Pancreas: No mass or duct dilation. Adrenals: 22.5 x 17.6 cm heterogeneous left suprarenal hypoenhancing mass with calcifications is not significantly changed from prior exam. The mass displaces the left kidney inferiorly, somewhat anteriorly, and small bowel into the RIGHT abdomen. No right adrenal mass. Kidneys: Numerous bilateral benign renal cysts and additional subcentimeter renal low-attenuation lesions which are too small to characterize but likely benign. No hydronephrosis. No calculus. GI tract: No dilation or wall thickening. Normal appendix. Extensive sigmoid diverticulosis with sigmoid wall thickening, possibly related to muscular hypertrophy although recommend correlation with colonoscopy. No additional areas of bowel wall thickening. No bowel dilation. Lymph nodes: No abdominal or pelvic lymphadenopathy. Mesentery/Peritoneum: No ascites or mass. Small fat-containing left inguinal hernia. Retroperitoneum: No mass. Vasculature: - Abdominal aorta and iliac arteries: Atherosclerotic calcifications without aneurysm. - Celiac and SMA: Atherosclerotic calcifications at the origins. - Portal venous system (SMV, splenic vein, portal vein and branches): Patent. - Hepatic veins: Incompletely opacified, likely due to early phase of enhancement. Pelvis: No mass, ascites or fluid collection. Enlarged prostate with median lobe hypertrophy. Bladder unremarkable. Bones/Soft Tissues: Degenerative changes. Lower thorax: Bilateral lower lobe calcified granulomas. 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 Diverticulosis without acute diverticulitis. CT abd/pelvis: 09/07/2024: RESULT: Liver: No mass. Biliary: No bile duct dilation. Gallbladder is unremarkable. Spleen: No mass. No splenomegaly. Pancreas: No mass or duct dilation. Adrenals: Right adrenal gland: Normal Left adrenal gland: status post adrenalectomy without residual recurrent mass Kidneys: Benign renal cortical and parapelvic cysts. No calculus or hydronephrosis GI tract: No dilation or wall thickening. Diverticulosis without diverticulitis. Normal appendix. Lymph nodes: No abdominal or pelvic lymphadenopathy. Mesentery/Peritoneum: No ascites or mass. Retroperitoneum: No mass. Vasculature: - Abdominal aorta and iliac arteries: Atherosclerotic calcifications without aneurysm. - Celiac and SMA: Atherosclerotic calcifications at the origins. - Portal venous system (SMV, splenic vein, portal vein and branches): Patent. - Hepatic veins: Patent. Pelvis: No mass, ascites or fluid collection. Bones/Soft Tissues: * Degenerative changes. * Small umbilical hernia containing fat * Left inguinal hernia containing fat * Degenerative changes of the spine Lower thorax: Bibasilar atelectatic changes Localizer images: No additional findings. IMPRESSION: Left adrenalectomy without evidence for residual or recurrent adrenal mass. No metastatic disease. ASSESSMENT/PLAN: Large (>4 cm) left adrenal mass s/p open left adrenalectomy Patient was incidentally noted to have left adrenal mass which is benign based on surgical pathology Labs were done prior to surgery for functional evaluation among which ARR, and catecholamines/metanephrines were not concerning. Cortisol was checked with salivary lab test x1 that was normal, and a 24 hr urine cortisol was donewith abnormal results. Cortisol am and ACTH with no evidence of concerns however. DST is not available, possibly not done I reviewed that we might have to check for low cortisol given the above reasons and size of the lesion ACTH higher than normal, while cortisol normal - indicating likely high cortisol production from the nodule that was removed. This was discussed with the patient and daughter. I explained the possible pathophysiology of low cortisol, and reviewed briefly about starting on steroid medication, with possible gradual tapering on last visit, which in his case is not required asthe cortisol is within normal even at 11.42 am (labs doen late despite requesting at 8 am on fasting) I also discussed that low cortisol usually causes weight loss rather than weight gain which is usually caused by cortisol excess. So this could be from the prior cortisol producing nodule. But patient reports gaining more since surgery, again this could be from decreased activity They would like to do a salivary cortisol testing to see high cortisol production which I indicatedwas not necessary and would not reveal much information, but patient would prefer checking for highcortisol due to inability to lose weight based on our discussion today. Will do 1 mg DST based on patient preference Follow up in 4 weeks with labs Medical Decision Making: Problems: Moderate: New problem with uncertain prognosis Data: Unique test result(s) reviewed: 3+ Unique test(s) ordered: 2 Risk: Moderate: Drug management Medical Decision Making Level: 4 - Moderate Obie Marcelo MD Endocrinology Associate Staff [facility] Endocrinology and Metabolism [place] [phone] documented in this encounterMi[facility]03-18-[facility]25 History of Present illness Narrative* Sandhya De La Cruz, RT(R) - 09/07/2024 3:20 PM EDT Radiology Service Progress Note DATE OF SERVICE: September 07, 2024 TIME: 3:53 PM PATIENT IDENTITY VERIFICATION COMPLETED USING TWO (2) STANDARD IDENTIFIERS: Name and Date of confirmed by patient verbally. FALL SCREENING: Has the patient had 2 falls in the last year or 1 fall with injury or currently using an Ambulatory Assistive Device (Walker, Cane, Wheelchair, Crutches, etc.)? No PATIENT GENDER DATA: Assigned male at PATIENT RELEVANT IMPLANT DATA REVIEWED: Yes PATIENT PRESENTS WITH AN IMPLANTABLE OR ATTACHED SUPERVISOR TELEVISION CHASSIS REPAIR: No ALLERGIES: Reviewed and unchanged CONTRAST ALLERGY: NO. EXAM: CT -CONTRAST INDUCED NEPHROPATHY RISK FACTORS: Patient age > 60 years CREATININE: Creatinine Date Value Ref Range Status 09/07/2024 0.94 0.73 - 1.22 mg/dL Final 06/18/2024 0.95 0.73 - 1.22 mg/dL Final 06/01/2024 1.15 0.73 - 1.22 mg/dL Final Estimated Glomerular Filtration Rate Date Value Ref Range Status 09/07/2024 79 >=60 mL/min/1.73m Final Comment: Estimated Glomerular Filtration Rate (eGFR) is calculated using the 2020 CKD-EPI creatinine equation. This equation utilizes serum creatinine, sex, and age as parameters. The creatinine assay has traceable calibration to isotope dilution- mass spectrometry. Refer to KDIGO guidelines for clinical interpretation. In patients with unstable renal function, e.g. those with acute kidney injury, the eGFRmay not accurately reflect actual GFR. eGFR- Date Value Ref Range Status 03/26/2021 >60 Final P.O.C.T. RESULTS: POC done: Yes, See Lab Tab September 07, 2024 TREATMENT: N/A PERIPHERAL IV DATA: Ambulatory: A peripheral IV was started in the Left forearm with a Angio cath: 22 gauge. RADIOLOGY DEPARTMENT: CT; Exam(s) Completed: Abdomen/Pelvis SIGNATURE: RT Sacha(R) PATIENT NAME: April Quesada DATE: September 07, 2024 TIME: 3:53 PM documented in this encounterMiami [facility]03-18-[facility] Telephone encounter Note* Telephone Encounter - Caren Ortega MA - 08/09/2024 10:58 AM EST Prescription Refill Information The patient has been identified by name and date of : Yes Caregiver verified no other encounters exist for this prescription request: Yes Caregiver confirmed with patient/requestor that no other refills are due, in the near future, with this provider at this time: Yes The last office visit in the department: 06/18/24 Does the patient have a future office visit with this provider/department: Yes: 12/22/24 Requested Prescriptions Pending Prescriptions Disp Refills cloNIDine HCl (CATAPRES) 0.1 mg tablet 60 tablet 5 Sig: Take 1 tablet by mouth once daily. Caren Ortega MA August 09, 2024 10:58 AM [facility]02-17-2025 Miscellaneous Notes* Telephone Encounter - Caren Ortega MA - 08/09/2024 10:58 AM EST Prescription Refill Information The patient has been identified by name and date of : Yes Caregiver verified no other encounters exist for this prescription request: Yes Caregiver confirmed with patient/requestor that no other refills are due, in the near future, with this provider at this time: Yes The last office visit in the department: 06/18/24 Does the patient have a future office visit with this provider/department: Yes: 12/22/24 Requested Prescriptions Pending Prescriptions Disp Refills cloNIDine HCl (CATAPRES) 0.1 mg tablet 60 tablet 5 Sig: Take 1 tablet by mouth once daily. 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 April Quesada is a 83 year old male coming today for evaluation ofsymptoms of lightheadedness. He is accompanied by his daughter today History significant for left adrenalectomy in 02/2024 In brief, He has been at his powderer, who he sees for Afib, and at the visit, when he had an echo, he was noted to have abdominal mass on that imaging, followed by CT abdomen, and was subsequently referred to Endocrine surgery for evaluation and surgery. He underwent open left adrenalectomy on 03/05/2024 Symptoms reported today, Lightheadedness randomly occurs. Trouble focusing- he lost his in Fall 2023, he reports he knows that he is in depression No salt craving, constipation No use of steroids in the past He reports gaining weight - 15 to 20 lbs in the last 3 months since surgery, because of He denied any nausea, vomiting He denied any rapid weight gain prior to surgery and was at his lowest weight at the time of surgery Past Medical History: PAST MEDICAL HISTORY Diagnosis Date Anxiety state, unspecified Benign neoplasm of colon Carotid stenosis Depressive disorder, not elsewhere classified Diverticulosis of colon (without mention of hemorrhage) DM (diabetes mellitus) (HCC) Gout Hearing loss wears hearing aids Hypertrophy of prostate without urinary obstruction and other lower urinary tract symptoms (LUTS) Impotence of organic origin Obesity, unspecified Other and unspecified hyperlipidemia Personal history of colonic polyps Skin cancer, basal cell [facility] [place] Unspecified essential hypertension Surgical History: PAST SURGICAL HISTORY Procedure Laterality Date ADRENALECTOMY Left 03/05/2024 CARDIAC CATH 01/16/2017 CARDIOVERSION 2017 COLONOSCOPY FLX DX W/COLLJ SPEC WHEN PFRMD 03/03/2014 Colonoscopy COLONOSCOPY FLX DX W/COLLJ SPEC WHEN PFRMD 05/31/2019 Colonoscopy COLSC FLX W/RMVL OF TUMOR POLYP LESION SNARE TQ 05/27/2007 COLSC FLX W/RMVL OF TUMOR POLYP LESION SNARE TQ 08/09/2010 PAST SURGICAL HISTORY OF 1997 arthroscopic lt knee surg PAST SURGICAL HISTORY OF 1999 Rt foot great toe fusion TONSILLECTOMY & ADENOIDECTOMY <AGE 11 Family Medical History: FAMILY HISTORY Problem Relation Age of Onset GI Mother Cancer Father lymphoma Coronary Artery Disease Brother Social History: Social History Tobacco Use Smoking status: Former Types: Cigarettes Smokeless tobacco: Never Tobacco comments: Quit 1975 1-2 cig daily on the weekends Vaping Use Vaping status: Never Used Substance Use Topics Alcohol use: Yes Comment: rarely Drug use: No Allergies: ALLERGIES Allergen Reactions Cephalosporins Rash Doxycycline Rash photosensitivity dermatitis Mirtazapine Unknown Dizziness Current medications: Current Outpatient Medications Medication Sig lisinopril (ZESTRIL) 20 mg tablet Take 1 tablet by mouth once daily. acetaminophen/diphenhydramine (TYLENOL PM ORAL) Take by mouth. OTC PRODUCT THC gummy amLODIPine (NORVASC) 5 mg tablet Take 1 tablet by mouth once daily. furosemide (LASIX) 20 mg tablet Take 1 tablet by mouth once daily as needed. For weight increase of3 lb cloNIDine HCl (CATAPRES) 0.1 mg tablet Take 1 tablet by mouth once daily. metFORMIN ER (GLUCOPHAGE XR) 500 mg 24 hr tablet Take 1 tablet by mouth daily with breakfast. rivaroxaban (XARELTO) 20 mg tablet Take 1 tablet by mouth daily with dinner. atorvastatin (LIPITOR) 20 mg tablet Take 1 tablet by mouth daily at bedtime. For cholesterol. (Patient not taking: Reported on 05/21/2024) carvedilol (COREG) 3.125 mg tablet Take 3.125 mg by mouth twice daily with meals. Cholecalciferol, Vitamin D3, 2,000 unit cap Take 1 tablet by mouth once daily. No current facility-administered medications for this visit. Review of Systems: 10 point ROS was reviewed and negative unless indicated in the HPI Physical exam: Pulse 75 Temp 36.4 C (97.6 F) (Temporal Artery) Wt 85.7 kg (189 lb) SpO2 98% BMI 27.12 kg/m General Appearance: Well appearing, alert, in no acute distress, well-hydrated, well nourished, moderately built Skin: Skin color, texture, turgor normal, no suspicious rashes or lesions. Eyes: Anicteric sclera. Extraocular movements are intact. Neck: Supple, no adenopathy; thyroid symmetric, normal size, no bruits. Lungs: unlabored breathing on room air Heart: Regular rate and rhythm Abdomen: no abdominal striae, transverse abdominal surgical scar well healed Extremities: No deformities, edema, skin discoloration, no tremors Musculoskeletal: No joint swelling, deformity, or tenderness. Peripheral Pulses: Normal. Neurologic: Gait normal. Reflexes normal and symmetric. Previous laboratory results: Latest Reference Range & Units 07/19/06 10:26 12/10/12 08:45 12/27/14 09:45 07/31/17 16:35 01/06/24 15:40 01/16/24 14:17 01/19/24 06:00 03/06/24 05:19 05/21/24 12:37 05/24/24 10:00 06/18/24 12:21 T4 5.0 - 11.0 ug/dL 7.7 7.2 TSH 0.270 - 4.200 mIU/L 1.540 1.450 1.360 0.862 1.450 PTH, Intact 15 - 65 pg/mL 51 DHEA-S 16.2 - 123.0 ug/dL 85.9 ACTH 7.2 - 63.3 pg/mL 26.8 Cortisol 4.8 - 19.5 ug/dL 14.8 13.1 Aldosterone 0.0 - <35.4 ng/dL 9.6 Aldosterone Urine 3.0 - <28.1 ug/24hr 7.2 Direct Renin 3.6 - 81.6 pg/mL 38.3 Norepinephrine 1050 - 4800 pmol/L 2787 Dopamine <=240 pmol/L 193 Epinephrine (PLCAT) <=330 pmol/L 250 Catecholamine Interpretation Plasma See Note Epinephrine, Ur 24hr 1 - 14 ug/d 5 Norepinephrine, Ur 24hr 14 - 120 ug/d 56 Dopamine, Ur 24hr 71 - 485 ug/d 117 Epinephrine, Ur ratio to ECHOCARDIOGRAPH TECH 0 - 20 ug/g ECHOCARDIOGRAPH TECH 4 Norepinephrine, Ur ratio to ECHOCARDIOGRAPH TECH 0 - 45 ug/g ECHOCARDIOGRAPH TECH 44 Dopamine, Ur ratio to ECHOCARDIOGRAPH TECH 0 - 250 ug/g ECHOCARDIOGRAPH TECH 92 Catecholamines Interpretation See Note Epinephrine, Ur per vol ug/L 3 Norepinephrine, Ur per vol ug/L 34 Dopamine, Ur per vol ug/L 71 Cortisol, Saliva ug/dL 0.378 TSH, [place] 0.50 - 6.00 uIU/mL 2.04 Metanephrine, Plasma 12 - 67 pg/mL 47 Normetanephrine, Free Plasma 18 - 101 pg/mL 109 (H) (H): Data is abnormally high Latest Ref Rn 01/19/2024 Hours Collected hr 24 Hours Collected hr 24 Hours Collected hr 24 Total Volume mL 1650 Total Volume mL 1650 Total Volume mL 1650 Creatinine, Urine Per Volume mg/dL 77 Creatinine, Urine Per Volume mg/dL 77 Creatinine, Urine Per 24H 600 - 2000 mg/d 1270 Creatinine, Urine Per 24H 600 - 2000 mg/d 1270 Cortisol ug/g Therapeutic Assistant, Ur (UFRCRT) ug/g ECHOCARDIOGRAPH TECH Female Prepubertal: Less than 25 ug/g api architect 18 years and older: Less than 24 ug/g api architect : Less than 59 ug/g api architect Male Prepubertal: Less than 25 ug/g api architect 18 years and older: Less than 32 ug/g api architect 30.65 Free Cortisol ug/L, Urine ug/L 23.60 Free Cortisol ug/day, Urine <=60.0 ug/d 38.9 Free Cortisol UR, Interpretation See Note Operative Report: 03/05/24 FINAL DIAGNOSIS A. 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 Pathology: Imaging: EXAMINATION: CT ABDOMEN AND PELVIS WITH IV CONTRAST 02/13/24 CLINICAL HISTORY: Recent diagnosis of large left adrenal mass. Patient presents emergency department with abdominal pain. TECHNIQUE: CT of the abdomen and pelvis was performed using standard technique, scanning from just above the dome of the diaphragm to the symphysis pubis. MQ: CTAP_3 Contrast: IV: 100 ml of Omnipaque 350 CT Radiation dose: Integrated Dose-length product (DLP) for this visit = 615 mGy*cm. CT Dose Reduction Employed: mAs-kVp adjusted based on patient size-age COMPARISON: 01/09/2024 CT abdomen pelvis. RESULT: Liver: No mass. Biliary: No bile duct dilation. Gallbladder is unremarkable. Spleen: No mass. No splenomegaly. Pancreas: No mass or duct dilation. Adrenals: 22.5 x 17.6 cm heterogeneous left suprarenal hypoenhancing mass with calcifications is not significantly changed from prior exam. The mass displaces the left kidney inferiorly, somewhat anteriorly, and small bowel into the RIGHT abdomen. No right adrenal mass. Kidneys: Numerous bilateral benign renal cysts and additional subcentimeter renal low-attenuation lesions which are too small to characterize but likely benign. No hydronephrosis. No calculus. GI tract: No dilation or wall thickening. Normal appendix. Extensive sigmoid diverticulosis with sigmoid wall thickening, possibly related to muscular hypertrophy although recommend correlation with colonoscopy. No additional areas of bowel wall thickening. No bowel dilation. Lymph nodes: No abdominal or pelvic lymphadenopathy. Mesentery/Peritoneum: No ascites or mass. Small fat-containing left inguinal hernia. Retroperitoneum: No mass. Vasculature: - Abdominal aorta and iliac arteries: Atherosclerotic calcifications without aneurysm. - Celiac and SMA: Atherosclerotic calcifications at the origins. - Portal venous system (SMV, splenic vein, portal vein and branches): Patent. - Hepatic veins: Incompletely opacified, likely due to early phase of enhancement. Pelvis: No mass, ascites or fluid collection. Enlarged prostate with median lobe hypertrophy. Bladder unremarkable. Bones/Soft Tissues: Degenerative changes. Lower thorax: Bilateral lower lobe calcified granulomas. 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 Diverticulosis without acute diverticulitis. ASSESSMENT/PLAN: Large (>4 cm) left adrenal mass s/p open left adrenalectomy Patient was incidentally noted to have left adrenal mass which is benign based on surgical pathology Labs were done prior to surgery for functional evaluation among which ARR, and catecholamines/metanephrines were not concerning. Cortisol was checked with salivary lab test x1 that was normal, and a 24 hr urine cortisol was donewith abnormal results. Cortisol am and ACTH with no evidence of concerns however. DST is not available, possibly not done I reviewed that we might have to check for low cortisol given the above reasons and size of the lesion - advised ACTH, cortisol am on fasting at 8 am, after holding any biotin containing supplements for 3 days If abnormal, explained the possible pathophysiology, and reviewed briefly about starting on steroidmedication, with possible gradual tapering Follow up in 1 month All questions welcomed and answered to satisfaction Patient understands and agrees with the plan discussed. I spent a total of 44 minutes on the date of the service which included preparing to see the patient, [id number] patient care, completing clinical documentation, obtaining and/or reviewing separately obtained history, performing a medically appropriate examination, counseling and educating the pat ient/family/caregiver, ordering medications, tests, or procedures, independently interpreting results (not separately reported), and communicating results to the patient/family/caregiver. Obie Marcelo MD Endocrinology Associate Staff [facility] Endocrinology and Metabolism [place] [phone] SIGNATURE: Obie Marcelo MD DATE of SERVICE: July 05, 2024 TIME of SERVICE: 1:43 PM documented [facility] encounterMi[facility]12[facility] Telephone encounter Note * Telephone Encounter - Caren Ortega MA - 06/22/2024 10:56 AM EST Patient was made aware of the results. Patient verbalizes understanding. Caren Ortega Ma [facility]12-31-[facility] Miscellaneous Notes* Telephone Encounter - Caren Ortega MA - 06/22/2024 10:56 AM EST Patient was made aware of the results. Patient verbalizes understanding. Caren Ortega Ma * Telephone Encounter - Caren Ortega MA - 06/22/2024 10:54 AM EST ----- Message from Vianney A Suppan sent at 06/21/2024 8:04 AM EST ----- Stool card is negative for blood. * Telephone Encounter - Caren Ortega MA - 06/22/2024 10:52 AM EST ----- Message from Vianney A Suppan sent at 06/21/2024 7:59 AM EST ----- Urine for microalbumin creatinine ratio is stable indicating kidney function is okay. Blood sugars have been very well-controlled with a hemoglobin A1c of 6.4%. Calcium level is improved. Ionized calcium is okay. Vitamin D okay. Parathyroid hormone normal. The only concern is that the potassium is still slightly elevated at 5.3. We discussed this at your appointment. documented in this encounterMiami [facility]12-31-2024 Telephone encounter Note * Telephone Encounter - Caren Ortega MA - 06/22/2024 10:54 AM EST ----- Message from Vianney A Suppan sent at 06/21/2024 8:04 AM EST ----- Stool card is negative for blood. [facility] Telephone encounter Note* Telephone Encounter - Caren Ortega MA - 06/22/2024 10:52 AM EST ----- Message from Vianney Sahu sent at 06/21/2024 7:59 AM EST ----- Urine for microalbumin creatinine ratio is stable indicating kidney function is okay. Blood sugars have been very well-controlled with a hemoglobin A1c of 6.4%. Calcium level is improved. Ionized calcium is okay. Vitamin D okay. Parathyroid hormone normal. The only concern is that the potassium is still slightly elevated at 5.3. We discussed this at your appointment. [facility]12-27-[facility] Instructions* Patient Instructions* Vianney Sahu APRN.CNP - 06/18/2024 12:07 PM EST 1) Check labs today 2) Stool card 3) Follow up in 6 months documented in this encounterMiami [facility]12-27-2024 [facility] History of Present illness Narrative* Vianney Sahu APRN.CNP - 06/18/2024 11:44 AM EST This is a 83 year old male who presents today with: No chief complaint on file. HISTORY OF PRESENT ILLNESS: April Quesada is a 83 year old male. No chief complaint on file. Not taking sertraline. Said they made him feel sluggish. "Maybe I don't need them". Takes enough pills. Sleeping better. Takes a "Tylenol PM and a MJ gummy" at bedtime HTN: Patient is compliant with meds Yes Monitors bp at home: Occ. Denies side effects: No. Chest pain: No. Dyspnea: No. Edema: No. Palpitations: No. Syncope: No. Headache: No. Dizziness: Yes. Always PAST MEDICAL HISTORY: PAST MEDICAL HISTORY Diagnosis Date Anxiety state, unspecified Benign neoplasm of colon Carotid stenosis Depressive disorder, not elsewhere classified Diverticulosis of colon (without mention of hemorrhage) DM (diabetes mellitus) (HCC) Gout Hearing loss wears hearing aids Hypertrophy of prostate without urinary obstruction and other lower urinary tract symptoms (LUTS) Impotence of organic origin Obesity, unspecified Other and unspecified hyperlipidemia Personal history of colonic polyps Skin cancer, basal cell [employer] [place] Unspecified essential hypertension PAST SURGICAL HISTORY Procedure Laterality Date ADRENALECTOMY Left 03/05/2024 CARDIAC CATH 01/16/2017 CARDIOVERSION 2016 COLONOSCOPY FLX DX W/COLLJ SPEC WHEN PFRMD 03/03/2014 Colonoscopy COLONOSCOPY FLX DX W/COLLJ SPEC WHEN PFRMD 05/31/2019 Colonoscopy COLSC FLX W/RMVL OF TUMOR POLYP LESION SNARE TQ 05/27/2007 COLSC FLX W/RMVL OF TUMOR POLYP LESION SNARE TQ 08/09/2010 PAST SURGICAL HISTORY OF 1997 arthroscopic lt knee surg PAST SURGICAL HISTORY OF 1999 Rt foot great toe fusion TONSILLECTOMY & ADENOIDECTOMY <AGE 11 ALLERGIES Cephalosporins, Doxycycline, and Mirtazapine MEDICATIONS Current Outpatient Medications Medication Sig lisinopril (ZESTRIL) 20 mg tablet Take 1 tablet by mouth once daily. sertraline (ZOLOFT) 25 mg tablet Take 1 tablet by mouth once daily. acetaminophen/diphenhydramine (TYLENOL PM ORAL) Take by mouth. OTC PRODUCT THC gummy amLODIPine (NORVASC) 5 mg tablet Take 1 tablet by mouth once daily. furosemide (LASIX) 20 mg tablet Take 1 tablet by mouth once daily as needed. For weight increase of3 lb cloNIDine HCl (CATAPRES) 0.1 mg tablet Take 1 tablet by mouth once daily. metFORMIN ER (GLUCOPHAGE XR) 500 mg 24 hr tablet Take 1 tablet by mouth daily with breakfast. rivaroxaban (XARELTO) 20 mg tablet Take 1 tablet by mouth daily with dinner. atorvastatin (LIPITOR) 20 mg tablet Take 1 tablet by mouth daily at bedtime. For cholesterol. (Patient not taking: Reported on 05/21/2024) carvedilol (COREG) 3.125 mg tablet Take 3.125 mg by mouth twice daily with meals. Cholecalciferol, Vitamin D3, 2,000 unit cap Take 1 tablet by mouth once daily. No current facility-administered medications for this visit. FAMILY HISTORY Problem Relation Age of Onset GI Mother Cancer Father lymphoma Coronary Artery Disease Brother Social History Tobacco Use Smoking status: Former Types: Cigarettes Smokeless tobacco: Never Tobacco comments: Quit 1975 1-2 cig daily on the weekends Vaping Use Vaping status: Never Used Substance Use Topics Alcohol use: Yes Comment: rarely Drug use: No Sitting 126/76, standing 116/ 66 EXAM: BP 110/54 Pulse 63 Temp 36.3 C (97.3 F) (Temporal Artery) Wt 87.5 kg (193 lb) SpO2 98% BMI 27.69 kg/m PHYSICAL EXAM: Physical Exam Vitals reviewed. Constitutional: Appearance: Normal appearance. HENT: Head: Normocephalic. Right Ear: Tympanic membrane, ear canal and external ear normal. There is no impacted cerumen. Left Ear: Tympanic membrane, ear canal and external ear normal. There is no impacted cerumen. Nose: Nose normal. Eyes: Pupils: Pupils are equal, round, and reactive to light. Neck: Vascular: No carotid bruit. Cardiovascular: Rate and Rhythm: Normal rate and regular rhythm. Pulses: Normal pulses. Heart sounds: Normal heart sounds. Pulmonary: Effort: Pulmonary effort is normal. Breath sounds: Normal breath sounds. Abdominal: General: Bowel sounds are normal. Palpations: Abdomen is soft. Musculoskeletal: General: Normal range of motion. Cervical back: Normal range of motion. Right lower leg: No edema. Left lower leg: No edema. Lymphadenopathy: Cervical: Cervical adenopathy present. Skin: General: Skin is warm and dry. Neurological: Mental Status: He is alert and oriented to person, place, and time. Psychiatric: Mood and Affect: Mood normal. Behavior: Behavior normal. LABS: check labs ASSESSMENT/PLAN: 1. Abnormal stool test - ICD9: 792.1, ICD10: R19.5 (primary diagnosis) Positive but did not want to have Cscope- recheck - IMMUNOCHEMICAL FECAL OCCULT BLOOD TEST 2. Hyperkalemia - ICD9: 276.7, ICD10: E87.5 Recheck labs - BASIC METABOLIC PANEL - MAGNESIUM 3. Prediabetes - ICD9: 790.29, ICD10: R73.03 Not wanting to take metformin SA, cutting it in half and eating better - HEMOGLOBIN A1C - ALBUMIN/CREATININE RATIO, URINE Discussed treatment plan and patient voices understanding. Patient's questions answered appropriately. Medications and potential side effects were discussed and patient voices understanding. Return to the office as scheduled or as needed for worsening/no improvement. Vianney Sahu APRN.CANDLES POURER documented in this encounterMiami [facility] Hospital12-12-2024 Telephone encounter Note * Telephone Encounter - Veronica Galvez LPN - 06/03/2024 9:53 AM EST Called and updated patient, and sent result note via SideStept in addition per patient request. Voiced understanding. Veronica Galvez LPN June 03, 2024 9:54 AM [facility]12-[facility] Miscellaneous Notes* Telephone Encounter - Veronica Galvez LPN - 06/03/2024 9:53 AM EST Called and updated patient, and sent result note via Side[employer] in addition per patient request. Voiced understanding. Veronica Galvez LPN June 03, 2024 9:54 AM * Telephone Encounter - Veronica Galvez LPN - 06/03/2024 9:50 AM EST ----- Message from Isabel Celis MD sent at 06/03/2024 8:20 AM EST ----- Please let patient know that his memory issues are likely from his mental health condition and his medical condition. The likelyhood of it being from alzheimers is lesser. I dont see that he has an appointment with me, which is fine but would like him to see a psychiatrist. Regards, Isabel Celis MD documented in this encounterMiami [facility] Hospital12-12-2024 Telephone encounter Note * Telephone Encounter - Veronica Galvez LPN - 06/03/2024 9:50 AM EST ----- Message from Isabel Celis MD sent at 06/03/2024 8:20 AM EST ----- Please let patient know that his memory issues are likely from his mental health condition and his medical condition. The likelyhood of it being from alzheimers is lesser. I dont see that he has an appointment with me, which is fine but would like him to see a psychiatrist. Regards, Isabel Celis MD [facility]12-11-20[facility] Telephone encounter Note* Telephone Encounter - Gwen Herrmann RN - 06/02/2024 10:55 AM EST Pts daughter Ashley called and is notified of providers message and instructions. She voices understanding. Per daughters request [facility] Let her know one of them would need to call back in and set up an appointment for the Pt. Gwen Herrmann RN [facility]12-11-2024 Miscellaneous Notes* Telephone Encounter - Gwen Herrmann RN - 06/02/2024 10:55 AM EST Pts daughter Ashley called and is notified of providers message and instructions. She voices understanding. Per daughters request [facility] Let her know one of them would need to call back in and set up an appointment for the Pt. Gwen Herrmann RN * Telephone Encounter - Enrrique Carmona MD - 06/02/2024 10:20 AM EST If not taking potassium, decrease lisinopril to 20 mg a day. Recheck labs in two to four weeks and follow up us after * Telephone Encounter - Richelle Lees RN - 06/02/2024 9:59 AM EST Daughter (Yoana) returns call. Results and provider message reviewed. Yoana reports that she doesn't think patient is taking potassium or calcium but will verify with patient and have him stop taking if he is. Richelle Lees RN * Telephone Encounter - Sharon Sanford MA - 06/02/2024 9:29 AM EST Left message for daughter guerda to call back Sharon Sanford MA * Telephone Encounter - Enrrique Carmona MD - 06/02/2024 8:09 AM EST His blood counts are better. Still looks a little dry. His potassium and calcium are both up. Make sure not taking any potassium or calcium supplements. Let me know. documented in this encounterMiami [facility] Hospital12-11-2024 Telephone encounter Note * Telephone Encounter - Enrrique Carmona MD - 06/02/2024 10:20 AM EST If not taking potassium, decrease lisinopril to 20 mg a day. Recheck labs in two to four weeks and follow up us after [facility]12-[facility] Telephone encounter Note* Telephone Encounter - Richelle Lees RN - 06/02/2024 9:59 AM EST Daughter (Yoana) returns call. Results and provider message reviewed. Yoana reports that she doesn't think patient is taking potassium or calcium but will verify with patient and have him stop taking if he is. Richelle Lees RN [facility]12-11-20[facility] Telephone encounter Note* Telephone Encounter - Sharon Sanford MA - 06/02/2024 9:29 AM EST Left message for daughter guerda to call back Sharon Sanford MA [facility]12-11-2024 Telephone encounter Note* Telephone Encounter - Enrrique Carmona MD - 06/02/2024 8:09 AM EST His blood counts are better. Still looks a little dry. His potassium and calcium are both up. Make sure not taking any potassium or calcium supplements. Let me know. [facility]12-[facility] Telephone encounter Note* Telephone Encounter - Dorothea Betancourt MA - 05/24/2024 9:51 AM EST Patient informed and verbalized understanding. Dorothea Betancourt MA [facility]12-02-2024 Miscellaneous Notes* Telephone Encounter - Dorothea Betancourt MA - 05/24/2024 9:51 AM EST Patient informed and verbalized understanding. Dorothea Betancourt MA * Telephone Encounter - Enrrique Carmona MD - 05/24/2024 8:09 AM EST Hb is actually high. Often due to not drinking enough fluid. Potassium is up as well. Likely is ok. Push fluids. Recheck labs in one week documented in this encounterMiami Valley Hospital12-02-2024 Telephone encounter Note * Telephone Encounter - Enrrique Carmona MD - 05/24/2024 8:09 AM EST Hb is actually high. Often due to not drinking enough fluid. Potassium is up as well. Likely is ok. Push fluids. Recheck labs in one week [facility]11-[facility]-29-[facility] History of Present illness Narrative* Enrrique Carmona MD - 05/21/2024 11:31 AM EST Patient presents with: 6 Month Exam HPI: Patient presents today for office visit for routine 6 month follow up. B/L knee pain. Mainly in the morning. HTN: Monitors BP at home. Stable. Denies chest pain and shortness of breath. Denies headaches. Lightheaded and dizzy all the time. Is all the time. Feels it is all the time. Is worse on standing. No syncope or palpations. Had severe case of COVID two years ago. Mentions he thinks he could have long haul covid. Feels foggy. Hard to focus. MRI scheduled for 05/28/24. Saw Dr. Montgomery, ENT, last week. Mentions left ear feels like there is water in it. Hears cracking and popping. Getting an MRI on 06/03 at [facility] of the brain. in December. Not sleeping well. Taking tylenol pm every night. Hard to wake up in the morning. Since 's passing has been depressed and stressed. Weight is increasing. Admits to having a "terrible mood" since his passed. Not suicidal. Has done counseling. Has good support system. Daughter is concerned about his adrenal function. Was negative. Post op. Cortisol level was ok post op. Stopped his atorvastatin, Allopurinol, trazodone and Ramelteon. Discussed stopping atorvastatin. Seeing Emre Rawls on 06/02/24 for skin biopsy on top of head. Checks sugars daily. Readings are all over the place. MEDICATIONS: Current Outpatient Medications Medication Sig acetaminophen/diphenhydramine (TYLENOL PM ORAL) Take by mouth. OTC PRODUCT THC gummy lisinopril (ZESTRIL) 40 mg tablet Take 1 tablet by mouth once daily. amLODIPine (NORVASC) 5 mg tablet Take 1 tablet by mouth once daily. furosemide (LASIX) 20 mg tablet Take 1 tablet by mouth once daily as needed. For weight increase of3 lb cloNIDine HCl (CATAPRES) 0.1 mg tablet Take 1 tablet by mouth once daily. metFORMIN ER (GLUCOPHAGE XR) 500 mg 24 hr tablet Take 1 tablet by mouth daily with breakfast. rivaroxaban (XARELTO) 20 mg tablet Take 1 tablet by mouth daily with dinner. carvedilol (COREG) 3.125 mg tablet Take 3.125 mg by mouth twice daily with meals. Cholecalciferol, Vitamin D3, 2,000 unit cap Take 1 tablet by mouth once daily. atorvastatin (LIPITOR) 20 mg tablet Take 1 tablet by mouth daily at bedtime. For cholesterol. (Patient not taking: Reported on 05/21/2024) No current facility-administered medications for this visit. ALLERGIES: ALLERGIES Allergen Reactions Cephalosporins Rash Doxycycline Rash photosensitivity dermatitis Mirtazapine Unknown Dizziness PAST MEDICAL HISTORY Diagnosis Date Anxiety state, unspecified Benign neoplasm of colon Carotid stenosis Depressive disorder, not elsewhere classified Diverticulosis of colon (without mention of hemorrhage) DM (diabetes mellitus) (HCC) Gout Hearing loss wears hearing aids Hypertrophy of prostate without urinary obstruction and other lower urinary tract symptoms (LUTS) Impotence of organic origin Obesity, unspecified Other and unspecified hyperlipidemia Personal history of colonic polyps Skin cancer, basal cell [employer] [place] Unspecified essential hypertension PAST SURGICAL HISTORY Procedure Laterality Date ADRENALECTOMY Left 03/05/2024 CARDIAC CATH 01/16/2017 CARDIOVERSION 2017 COLONOSCOPY FLX DX W/COLLJ SPEC WHEN PFRMD 03/03/2014 Colonoscopy COLONOSCOPY FLX DX W/COLLJ SPEC WHEN PFRMD 05/31/2019 Colonoscopy COLSC FLX W/RMVL OF TUMOR POLYP LESION SNARE TQ 05/27/2007 COLSC FLX W/RMVL OF TUMOR POLYP LESION SNARE TQ 08/09/2010 PAST SURGICAL HISTORY OF 1997 arthroscopic lt knee surg PAST SURGICAL HISTORY OF 1999 Rt foot great toe fusion TONSILLECTOMY & ADENOIDECTOMY <AGE 11 FAMILY HISTORY Problem Relation Age of Onset GI Mother Cancer Father lymphoma Coronary Artery Disease Brother Social History Tobacco Use Smoking status: Former Types: Cigarettes Smokeless tobacco: Never Tobacco comments: Quit 1975 1-2 cig daily on the weekends Vaping Use Vaping status: Never Used Substance Use Topics Alcohol use: Yes Comment: rarely Drug use: No Reviewed current medications, allergies, past medical history, surgical history, family history andsocial history today. REVIEW OF SYSTEMS All other reviewed and negative other than HPI. HEALTH MAINTENANCE: Reviewed health maintenance issues today and recommended the following in detail. Advance Directive Discussion due on 06/23/2023 Diabetic Foot Exam due on 09/27/2023 Covid-19 Vaccine() due on 02/22/2024 Urine Albumin:Creatinine Ratio due on 04/03/2024 LDL Cholesterol due on 04/03/2024 VITALS: BP 146/83 Pulse 74 Ht 177.8 cm (5' 10") Wt 86.4 kg (190 lb 7.6 oz) BMI 27.33 kg/m BP w/Orthostatic Vitals Date and Time Orthostatic BP Orthostatic Pulse BP Pulse BP Position BP Site BP Cuff Size 05/21/24 1211 150/85 86 -- -- Standing -- -- 05/21/24 1210 146/84 81 -- -- Supine -- -- 05/21/24 1209 139/83 76 -- -- Sitting -- -- 05/21/24 1132 -- -- 146/83 74 -- -- -- Last 4 Encounter Wt Readings: Date: Wt: 04/07/2024 81.6 kg (180 lb) 03/19/2024 82.1 kg (181 lb) 03/15/2024 80.7 kg (178 lb) 03/03/2024 85.7 kg (189 lb) PHYSICAL EXAMINATION: General appearance: Well appearing, alert, in no acute distress, well-hydrated, well nourished. Skin: Skin color, texture, turgor normal, no suspicious rashes or lesions Head: Normocephalic, no masses, lesions, tenderness or abnormalities Neck: Supple, no adenopathy; thyroid symmetric, normal size, no bruits Back: Normal exam Lungs: Lungs clear to auscultation. No wheezing, rhonchi, rales Heart: RRR without murmur, gallop, or rubs. No ectopy Abdomen: Normal abdominal exam, Abdomen soft, non-tender. Bowel sounds normal. No masses, organomegaly Extremities: No deformities, edema, skin discoloration, clubbing or cyanosis. Good capillary refill. Musculoskeletal: No joint swelling, deformity, or tenderness Peripheral pulses: Normal Neuro: Gait normal. Reflexes normal and symmetric. Sensation grossly intact. ASSESSMENT/PLAN: 1. Essential hypertension - ICD9: 401.9, ICD10: I10 (primary diagnosis) -fair control. No appreciable drop. Continue meds. 2. Mixed hyperlipidemia - ICD9: 272.2, ICD10: E78.2 - Controlled - Continue current medications - Counseled on healthy diet and regular exercise 3. Paroxysmal atrial fibrillation (HCC) - ICD9: 427.31, ICD10: I48.0 - stable. Continue to follow progress. 4. Type 2 diabetes mellitus without complication, without long-term current use of insulin (HCC) - ICD9: 250.00, ICD10: E11.9 - follow labs. - HEMOGLOBIN A1C 5. 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) - ICD9: 255.8, ICD10: E27.8 - had extensive adrenal testing prior to removal. Daughter requests we check a salivary cortisol. Suggested we can have endo assess his function but suspect is ok. 6. Left adrenal mass (HCC) - ICD9: 255.8, ICD10: E27.8 -as above. 7. Dizziness - ICD9: 780.4, ICD10: R42 - as above. - CONSULT TO ENDOCRINOLOGY 8. Chronic depression - ICD9: 311, ICD10: F32.A - start zoloft 9. Anxiety state - ICD9: 300.00, ICD10: F41.1 As above. 10. Bilateral carotid artery stenosis - ICD9: 433.10, 433.30, ICD10: I65.23 - was checked in last year by cardio per patient. 11. Lightheadedness - ICD9: 780.4, ICD10: R42 - start zoloft. - CONSULT TO ENDOCRINOLOGY 12. H/O total adrenalectomy (HCC) - ICD9: V45.79, ICD10: E89.6 - CONSULT TO ENDOCRINOLOGY 13. Fatigue, unspecified type - ICD9: 780.79, ICD10: R53.83 - COMPLETE BLOOD COUNT AND DIFFERENTIAL - COMPREHENSIVE METABOLIC PANEL - THYROID STIMULATING HORMONE - CONSULT TO ENDOCRINOLOGY - CORTISOL SALIVA 14. Major depressive disorder with current active episode, unspecified depression episode severity,unspecified whether recurrent - ICD9: 296.30, ICD10: F32.9 - SERTRALINE 25 MG TABLET Enrrique Carmona MD RTO in one month or prn. documented in this encounterMiami [facility]11-21-2024 Telephone encounter Note * Telephone Encounter - Elizabeth Marsh LPN - 05/13/2024 4:15 PM EST Patient has upcoming visit scheduled with you on 05/21/24. [facility] Miscellaneous Notes* Telephone Encounter - Elizabeth Marsh LPN - 05/13/2024 4:15 PM EST Patient has upcoming visit scheduled with you on 05/21/24. documented in this encounterMiami [facility] Hospital10-22-2024 Telephone encounter Note * Telephone Encounter - Ruth Maya MA - 04/13/2024 1:28 PM EDT Ramelteon or rozerem 8 mg 04/09 [facility]10-22-[facility]24 Miscellaneous Notes* Telephone Encounter - Ruth Maya MA - 04/13/2024 1:28 PM EDT Ramelteon or rozerem 8 mg 04/09 documented in this encounterMiami [facility] Hospital10-18-2024 Telephone encounter Note * Telephone Encounter - Isabel Celis MD - 04/09/2024 5:56 PM EDT Trial of remelteon [facility]10-18-2024 Miscellaneous Notes* Telephone Encounter - Isabel Celis MD - 04/09/2024 5:56 PM EDT Trial of remelteon * Telephone Encounter - Veronica Galvez LPN - 04/09/2024 4:36 PM EDT Called and spoke to pharmacist at [facility] and surv[facility]ant has the same interaction, stated may try buspar or trazadone? Veronica Galvez LPN April 09, 2024 4:38 PM * Telephone Encounter - Isabel Celis MD - 04/09/2024 12:54 PM EDT Please call pharmacy and ask them if survorexant does not have the same interactions? Regards, Isabel Celis MD * Telephone Encounter - Sury Yeager LPN - 04/09/2024 7:54 AM EDT Pharmacy sent a message that there is an interaction with Dayvigo and Amlodipine. Asking for a different med to be sent in. Please review. Sury Yeager LPN documented in this encounterMiami Valley Hospital10-18-2024 Telephone encounter Note * Telephone Encounter - Veronica Galvez LPN - 04/09/2024 4:36 PM EDT Called and spoke to pharmacist at [facility] and [facility] has the same interaction, stated may try buspar or trazadone? Veronica Galvez LPN April 09, 2024 4:38 PM [facility] Telephone encounter Note* Telephone Encounter - Isabel Celis MD - 04/09/2024 12:54 PM EDT Please call pharmacy and ask them if survorexant does not have the same interactions? Regards, Isabel Celis MD [facility]10-18-2024 Telephone encounter Note* Telephone Encounter - Sury Yeager LPN - 04/09/2024 7:54 AM EDT Pharmacy sent a message that there is an interaction with Dayvigo and Amlodipine. Asking for a different med to be sent in. Please review. Sury Yeager LPN [facility]10-16-2024 Instructions* Patient Instructions* Isabel Celis MD - 04/07/2024 4:33 PM EDT Please stop the THC, and Tylenol pm Take the Dayvigo at night half pill to start and if does now work , take a full pill You have to go out to the [facility] every day Talk to Petra. See me in 4 weeks. documented in [facility]24 [facility] History of Present illness Narrative* Isabel Celis MD - 04/07/2024 3:00 PM EDT [facility] Initial Consult April Quesada is a 83 year old year old male who comes for Comprehensive Geriatric Assessment. Pt accompanied by: Caregivers involved in care: HPI: January 20. From Jun of this year, though was requiring 24 hour care and therewas a lot of caregiver burnout as he was doing a lot and since passing family has noticed significant decline. There is severe depression, with SI,he was taken to the [facility], had an assessment. Family took him AMA, so he has stopped talking about the SI since then. At night someone has to be there with him. They have a caregiver at night to give him company. He is constantly ruminating about his , intrusive thoughts of guilt that he did not spend enough time with her, feels lonely and despondent. He reports repeatedly that he has many regrets in his life of not loving his and caring for him her by spending more time with her. It also seems like he has been grieving for his life with her and all the last 2 years. He told me that 30 years ago when he was in his 50s he filed for bankruptcy and for the 30 years after all he did was trying to work to recover from it. There were times that his judgment for decisions was not the best and he was given some advised by his but she never forced him to make any particular decisions she was always very respectful and she always stood by him no matter how difficult their life was. He says he worksso hard to make her enjoy everything he had but he knows that she wanted more of his time. When we talked with the daughter she reported that her mother had a very good life and she is very happy. Spent around 100 and half hours with the patient and the family to review the course of action for him. He is scoring perfectly on the MoCA and the MMSE. He denies hallucinations, constipation or diarrhea, denies having falls and does not think that he has a family history of dementia. PHQ 9 score- 22-today: The GDS score today was 12. He cannot remember things from last week, but has long term care pharmacist memory. Any Family History of dementia? Unknown Are you or your spouse a ? No Alzheimer's Questionnaire (Amy 2010) THE CAREGIVER REPORTS THAT THE PATIENT: - Has memory loss - Has worse memory than a few years ago - Repeats questions, statements, or stories in the same day - Forgets appointments or needs caregiver to track events/appointments - Has difficulty handling money (e.g., calculating tips or change) - Has trouble handling bills or finances - Has significantly reduced recreational activities THE CAREGIVER DENIES THAT THE PATIENT: - Misplaces items more than once a month, or so that s/he cannot find them - Suspects others are moving/hiding/stealing items when s/he cannot find them - Frequently has trouble knowing the date, uses cues like newspaper or calendar more than once a day - Becomes disoriented in unfamiliar places - Becomes more confused outside the home or when traveling - Has trouble remembering to take medications - Has difficulty driving, or drives in way that concerns the caregiver, or has stopped driving - Has trouble using appliances - Has difficulty completing household tasks or repairs - Is getting lost in familiar surroundings - Has a decreased sense of direction - Has trouble finding words other than names - Confuses names of family members or friends - Has difficulty recognizing familiar people Alzheimer's Questionnaire score = 9 (/ questions answered) Long-term Memory: Difficulty remembering distant events from the past like childhood, previous employment, wedding: NO Behavioral/personality: Withdrawn/Depressed: YES Crying spells: YES Anxious: YES History of aggression: NO History of irritability: NO Apathy:YES Recent changes in weight or appetite: YES Alcohol or Drug use: YES 3/4 a week. Smoking? NO Sleep: Do you snore loudly (louder than talking or loud enough to be heard through closed doors)? No Do you often feel tired, fatigued, or sleepy during daytime? No Has anyone observed you stop breathing during your sleep? No Are you restless when you sleep at night? No Do you have problems falling a sleep? No Do you have problems staying a sleep? No Psychosis: Hallucinations or delusions: NO Suicidal or homicidal ideations: Not currently Obsessions, compulsions, or hoarding: NO B-ADLs: (I=independent,A=assistance,D=dependent) ?Bathing: I, Dressing: I, Toileting: I, Transferring:I, Continence: I, Feeding: I, I-ADLs: Ability to use phone: I, Shopping: I, Cooking: A, Housekeeping: I, Laundry: I, Transportation:I, Medications: {I, Handle Finances: I. PMHx: PAST MEDICAL HISTORY Diagnosis Date Anxiety state, unspecified Benign neoplasm of colon Carotid stenosis Depressive disorder, not elsewhere classified Diverticulosis of colon (without mention of hemorrhage) DM (diabetes mellitus) (HCC) Gout Hearing loss wears hearing aids Hypertrophy of prostate without urinary obstruction and other lower urinary tract symptoms (LUTS) Impotence of organic origin Obesity, unspecified Other and unspecified hyperlipidemia Personal history of colonic polyps Skin cancer, basal cell [employer] [place] Unspecified essential hypertension PSHx: PAST SURGICAL HISTORY Procedure Laterality Date ADRENALECTOMY Left 03/05/2024 CARDIAC CATH 01/16/2017 CARDIOVERSION 2016 COLONOSCOPY FLX DX W/COLLJ SPEC WHEN PFRMD 03/03/2014 Colonoscopy COLONOSCOPY FLX DX W/COLLJ SPEC WHEN PFRMD 05/31/2019 Colonoscopy COLSC FLX W/RMVL OF TUMOR POLYP LESION SNARE TQ 05/27/2007 COLSC FLX W/RMVL OF TUMOR POLYP LESION SNARE TQ 08/09/2010 PAST SURGICAL HISTORY OF 1997 arthroscopic lt knee surg PAST SURGICAL HISTORY OF 1999 Rt foot great toe fusion TONSILLECTOMY & ADENOIDECTOMY <AGE 11 Home Meds: Prior to Admission medications : Medication acetaminophen/diphenhydramine (TYLENOL PM ORAL), Sig Take by mouth., Start Date , End Date , Taking? Yes, Authorizing Provider Provider, [facility] Medication OTC PRODUCT, Sig THC gummy, Start Date , End Date , Taking? Yes, Authorizing Provider Provider, [facility] Medication lisinopril (ZESTRIL) 40 mg tablet, Sig Take 1 tablet by mouth once daily., Start Date 03/23/24, End Date , Taking? Yes, Authorizing Provider Enrrique Carmona MD Medication amLODIPine (NORVASC) 5 mg tablet, Sig Take 1 tablet by mouth once daily., Start Date 03/19/24, End Date 09/15/24, Taking? Yes, Authorizing Provider Vianney Sahu APRN.CANDLES POURER Medication cloNIDine HCl (CATAPRES) 0.1 mg tablet, Sig Take 1 tablet by mouth once daily., Start Date 01/20/24, End Date , Taking? Yes, Authorizing Provider Enrrique Carmona MD Medication metFORMIN ER (GLUCOPHAGE XR) 500 mg 24 hr tablet, Sig Take 1 tablet by mouth daily with breakfast., Start Date 12/15/23, End Date , Taking? Yes, Authorizing Provider Vianney Sahu APRN.CANDLES POURER Medication rivaroxaban (XARELTO) 20 mg tablet, Sig Take 1 tablet by mouth daily with dinner., StartDate 12/10/23, End Date 12/09/24, Taking? Yes, Authorizing Provider Enrrique Carmona MD Medication atorvastatin (LIPITOR) 20 mg tablet, Sig Take 1 tablet by mouth daily at bedtime. For cholesterol., Start Date 04/02/23, End Date , Taking? Yes, Authorizing Provider Enrrique Carmona MD Medication carvedilol (COREG) 3.125 mg tablet, Sig Take 3.125 mg by mouth twice daily with meals., Start Date , End Date , Taking? Yes, Authorizing Provider Provider [facility] Medication Cholecalciferol, Vitamin D3, 2,000 unit cap, Sig Take 1 tablet by mouth once daily., Start Date 10/30/15, End Date , Taking? Yes, Authorizing Provider Gee Bell Medication traZODone (DESYREL) 100 mg tablet, Sig Take 1 tablet by mouth daily at bedtime. For sleep, Start Date 03/19/24, End Date 06/17/24, Taking? , Authorizing Provider Vianney Sahu APRN.CANDLES POURER Medication furosemide (LASIX) 20 mg tablet, Sig Take 1 tablet by mouth once daily as needed. For weight increase of 3 lb, Start Date 03/15/24, End Date 09/11/24, Taking? , Authorizing Provider Vianney Sahu APRN.CANDLES POURER Medication acetaminophen (TYLENOL) 500 mg tablet, Sig Take 1 tablet by mouth every 6 hours as needed for pain., Start Date 03/09/24, End Date 04/08/24, Taking? , Authorizing Provider Curtis Valdez, Medication docusate sodium (COLACE) 100 mg capsule, Sig Take 1 capsule by mouth two times a day as needed for constipation., Start Date 03/09/24, End Date 04/08/24, Taking? , Authorizing Provider Curtis Valdez, DO Medication allopurinol (ZYLOPRIM) 100 mg tablet, Sig Take 1 tablet by mouth once daily., Start Date10/20/18, End Date , Taking? , Authorizing Provider Enrrique Carmona MD Other OTC med/supplements: tylenol pm and thc gummies Medication Review: - ANY HIGH RISK MEDICATIONS (STOPP CRITERIA): NO ALLERGIES Allergen Reactions Cephalosporins Rash Doxycycline Rash photosensitivity dermatitis Mirtazapine Unknown Dizziness Review of Systems Difficulty chew/swallow: No Pain: No Tremor: No Incontinence - During the last 3 months did you leak urine? NO - Type?: none Constipation/Change in bowel habits: NO Vision No vision problems reported Follows with sleep manager:YES Hearing - Hearing aid : Hearing impairment, wears bilateral hearing aids but still has decreased hearing Falls: .: Falls in the last 12 months: None. If + falls: Physical Exam: General: Well-nourished, kempt Ambulatory: without assistance Mobility Aid: Wheelchair Head: Normocephalic Eyes: conjunctiva/corneas normal, EOMI Ears: R TM - clear with good landmarks, nl light reflex, L TM - clear with good landmarks, nl lightreflex Nose: clear Oropharynx: teeth in good repair Neck: supple and no adenopathy Cardio: regular rate and rhythm Pulmonary: Lungs clear to auscultation bilaterally Extremities: Extremities normal. No deformities, edema, or skin discoloration. Musculoskeletal: Normal Gait Neuro:Deep Tendon reflexes :2/4 , Both Gait: Unsteadiness: NO Shuffling: NO Tremors: NO Slowness: NO [place] Cognitive Exam (MOCA): 30 Mini-Mental State Exam (MMSE): 3030 Depression Screening/Evaluation: GDS: 06/06 No Data Recorded Labs: Reviewed in Epic, unremarkable Brain Imaging:None available today (F32.9) Major depressive disorder with current active episode, unspecified depression episode severity, unspecified whether recurrent Comment: Plan: CONSULT TO GERIATRICS Assessment and Plan: I. Medical /Mental Status/Decision Making Capacity 1-Mentation # Although the family is here with a few complaints of subjective memory loss his testing does not show any memory loss, there is also no significant loss of function although there is very severe depression driving the presentation. There are triggers for this depression which is a loss of his but he would be pathologically grieving as this is not regular grieving. He already thinks that heis taking too many medications.The depression seems to be the main driving factor. He was tried on Zoloft at 50 mg and increase to 100 but he had suicidal ideations. He was given mirtazapine in the evening at 7.5 to help with the sleeping and appetite and also with eating but it made him dizzy so he stopped both the medications. He feels he is on a lot of medications and does not want to add another 1. He has gone a couple times to the grief counseling and did not find it useful in fact he got more depressed. He has also been offered psychotherapy with counseling but he has repeatedly refusedit saying that going and talking to a friend of his own would be more helpful. He noted that what he really really needs from us to have is to help him sleep. He has a few friends that he is to go out and play with, who would be willing to come and check on him but he is not interested in going out. Plan: We are limited pharmacological therapies with him because of his aversion to wanting to be on medications. We have come up with this plan. Since the main issue he wants to deal with is insomnia I would like him to try Dayvigo for the insomnia. Following plan put in place Please stop the THC, and Tylenol pm Take the Dayvigo at night half pill to start and if does now work , take a full pill You have to go to the [facility] every day Talk to Petra at the [facility] [employer] [facility] and her start doing some exercise. See me in 4 weeks. We agreed that if in 4 weeks he is not improved at all we will start him on a medication and especially because depression seems to the main driving factor and SNRI would be a better choice to start first. 2-Mobility -- Except for his disease no desire to go out and exercise and his sedentary behavior, he himself has noticed that his muscles are all becoming very weak. And that he should exercise Plan Exercise, starts slow and build up to at least 30 minutes a day 3-Medications and chronic medical conditions Currently he is taking all the appropriate medications and he should continue it. We emphasized importance of this medications and the risk benefits and why they are essential for him he seems to understand. 4- Matters Most - Asked the patient to work on a living will and advanced directives. REFERRALS AND RECOMMENDATIONS 1. Discussed the cognitive benefits of memory exercises and reviewed examples 2. Discussed the cognitive benefits of physical exercise and socialization Spent more than 100 mins with the patient and family Isabel Celis MD [facility] documented in [facility] encounter[facility]10[facility]24 NoteChildren[facility]10-08-2024 History of Present illness Narrative* Suppan, Vianney A, OPTICAL MECHANIC APPRENTICE.GEMA - 03/30/2024 4:15 PM EDT Pt. Has complained of this for > 1 month. I have referred for an evaluation with corn lab technician. Very depressed. Not sleeping. Was taking benzodiazepines, mariajuana gummies, and drinking ETOH.... and not sleeping. Weaned off benzo and ETOH. Treated for insomnia. Consult next week. * Loli Arredondo RN - 03/30/2024 3:17 PM EDT Transitional Care Management (TCM) Follow-Up Note PCP Update / Actionable Items PCP-Patient states he has been feeling dizzy and lightheaded since his hospital discharge. States it is "pretty much constant". States he is eating regular, well balanced meals. Drinks about 4-5 cupsof liquids per day. Encouraged PO hydration. Patient checks his blood pressure periodically, reports it runs 130s/60s. Patient reports his at the end of December and he is having a hard time with her loss. States he is not sleeping well and feels this could be contributing to his symptoms. States he already speaks with someone regarding his grief and how he is feeling. Please advise.Thanks. N/A - No specialty updates needed Patient Source: In-Network Discharge Follow-up outreach: TCM enrolled patient Outreach Summary: TCM Update Spoke with patient Patient states he has been feeling dizzy and lightheaded since his hospital discharge States it is "pretty much constant" States he is eating regular, well balanced meals Drinks about 4-5 cups of liquids per day Encouraged PO hydration Patient checks his blood pressure periodically, reports it runs 130s/60s Patient reports his at the end of December and he is having a hard time with her loss States he is not sleeping well and feels this could be contributing to his symptoms States he already speaks with someone regarding his grief and how he is feeling Will send message to PCP Patient discharged from [facility] Discharge date: 03/09/2024 Admitted for: adrenalectomy Readmission Risk: 19 Value-Based Contract: Jorge MORALES Contact: Contact made with patient: Yes Spoke to: Patient Validation: Validated the person spoken to is actively involved in the patient's care. The patient was identified by Name and Date of . I'd like to get an update on how you're doing since our last phone call. Is now a good time to talk? Yes Symptoms: Are you feeling about the same, better or worse since leaving the hospital? Same Weekly Outreach: 2nd Outreach Medications: Do you have any questions about taking your medications, including which medications you should be on, or do you need refills on your medications? No Patient Questions / Concerns: Do you have any questions related to your discharge? No Appointment / TCM Follow-Up: Have you had a follow-up visit with your Primary Care Provider or Specialist since you were discharged? Yes SDOH: Has Food and Housing been addressed in Social Determinants in the past 3 months? Yes Education N/A Targets addressed / completed during outreach: N/A Outreach Outcome: Continue TCM Outreach for remainder of 30 days Care Management partners utilized: N/A Loli Arredondo RN March 30, 2024 3:24 PM documented in this encounterMi[facility]10-[facility]24 [facility]10-03-2024 Note[facility]10-03-2024 History of Present illness Narrative* Marcel Roberts MD - 03/25/2024 2:01 PM EDT [facility] Endocrinology Metabolism [facility] [address] [place] [address], [place] [address] April Quesada was called today for initial postoperative visit after undergoing open left adrenalectomy for a 23 cm mass. He denies fevers, chills, nausea, vomiting, constipation, or abdominal pain. On the phone, they report feeling well. They report the abdomen is flat and the incision has healednicely. Surgical Pathology Report (reviewed with the patient): FINAL DIAGNOSIS A. 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 Gross Description A. Adrenal Gland, Left, Resection Received in formalin labeled Left adrenal gland resection is a 1223.6 g, 16.7 x 16.5 x 9.5 cm multifocally disrupted mass consistent with adrenal mass. The external surface is multifocally disrupted and extruding vera rubbery and friable material. Gross photographs are taken. The outer surface is inked black. Sectioning reveals the 16.2 x 16.5 x 9.2 cm mass to diffusely replaced the adrenal parenchyma with a thin rim of 3.2 x 2.0 x 0.5 cm uninvolved adrenal parenchyma identified separately submitted. The mass exhibits greater than 90% diffuse hemorrhage and necrosis. Grossly identifiable vascular invasion is not identified. Gross photographs are taken. The remaining uninvolved adrenal gland demonstrates the usual layering with no additional lesions identified. Social Media Intern sections are submitted as follows: A1-A2 mass with disrupted outer surface, A3-A6 additional peripheral possibly viable aspect of mass, A7 mass with relationship to uninvolved adrenal parenchyma, A8-A9 additional central mass, A10 additional uninvolved adrenal gland. Assessment and Recommendations: Recovering well following open left adrenalectomy. I appreciate being involved in the care of this patient and please do not hesitate to contact me. Sincerely, Marcel Roberts M.D. Endocrine Surgery documented in this encounterMi[facility]10-[facility]-2024 NoteChildren[facility]10-03-2024 History of Present illness Narrative* Jeni Bonds Raquel - 03/25/2024 7:28 AM EDT April Quesada is identified through a medication adherence outreach initiative based on pharmacy claims data from [employer] (insurer) for Non-insulin DM medication(s). Patient is reviewed 03/25/24 due to medication adherence concerns with the following medications (name, strength, sig): Metformin ER 500 mg 1 tablet every day . Per data/report, last fill date and days supply: Due 03/14/2024 Per reconcile dispense, last fill date and days supply: 12/15/2023 for 90 days Per call to pharmacy, last picked up date and days supply: NA Contacted patient: Spoke to patient Patient is identified by Name and . Discussion on adherence consisted of - Spoke with patient and he has a couple days on hand, patient asked that I contact his pharmacy torequest a refill Any need for new prescription (I.e. out of refills on most recent prescription) YES/NO/Active: No The Patient verbalizes understanding and denies further questions/concerns at this time. Outcome of review/outreach: (choose outcome source and status) - Filled later than 7 days after Next fill date per call to pharmacy and per call to patient/caregiver - Spoke to Ghanshyam at and he will fill medication for patient Jeni Bonds documented in [facility]Mi[facility] Telephone encounter Note * Telephone Encounter - Valentine Fountain MA - 03/23/2024 3:25 PM EDT Prescription Refill Information The patient has been identified by name and date of : Yes Caregiver verified no other encounters exist for this prescription request: Yes Caregiver confirmed with patient/requestor that no other refills are due, in the near future, with this provider at this time: No The last office visit in the department: 03/19/24 Does the patient have a future office visit with this provider/department: Yes Requested Prescriptions Pending Prescriptions Disp Refills lisinopril (ZESTRIL) 40 mg tablet 90 tablet 3 Sig: Take 1 tablet by mouth once daily. Valentine Founatin MA March 23, 2024 3:25 PM [facility]10-01-2024 Miscellaneous Notes* Telephone Encounter - Valentine Fountain MA - 03/23/2024 3:25 PM EDT Prescription Refill Information The patient has been identified by name and date of : Yes Caregiver verified no other encounters exist for this prescription request: Yes Caregiver confirmed with patient/requestor that no other refills are due, in the near future, with this provider at this time: No The last office visit in the department: 03/19/24 Does the patient have a future office visit with this provider/department: Yes Requested Prescriptions Pending Prescriptions Disp Refills lisinopril (ZESTRIL) 40 mg tablet 90 tablet 3 Sig: Take 1 tablet by mouth once daily. Valentine Fountain MA March 23, 2024 3:25 PM documented in this encounterMiami [facility] Hospital09-27-2024 Instructions* Patient Instructions* Vianney Sahu APRN.CNP - 03/19/2024 1:53 PM EDT 1) Reduce amlodipine to 5 mg daily 2) Increase trazodone to 100 mg daily 3) Eat something salty today to increase blood pressure 4) Keep appointment with Dr. Carmona in Apr. documented in this encounterMiami Valley Hospital09-27-2024 NoteChildren[facility]09-27-2024 History of Present illness Narrative* Vianney Sahu APRN.CNP - 03/19/2024 1:34 PM EDT This is a 83 year old male who presents today with: No chief complaint on file. HISTORY OF PRESENT ILLNESS: April Quesada is a 83 year old male. No chief complaint on file. PAST MEDICAL HISTORY: PAST MEDICAL HISTORY Diagnosis Date Anxiety state, unspecified Benign neoplasm of colon Carotid stenosis Depressive disorder, not elsewhere classified Diverticulosis of colon (without mention of hemorrhage) DM (diabetes mellitus) (HCC) Gout Hearing loss wears hearing aids Hypertrophy of prostate without urinary obstruction and other lower urinary tract symptoms (LUTS) Impotence of organic origin Obesity, unspecified Other and unspecified hyperlipidemia Personal history of colonic polyps Skin cancer, basal cell [employer] [place] Unspecified essential hypertension PAST SURGICAL HISTORY Procedure Laterality Date CARDIAC CATH 01/16/2017 CARDIOVERSION 2017 COLONOSCOPY FLX DX W/COLLJ SPEC WHEN PFRMD 03/03/2014 Colonoscopy COLONOSCOPY FLX DX W/COLLJ SPEC WHEN PFRMD 05/31/2019 Colonoscopy COLSC FLX W/RMVL OF TUMOR POLYP LESION SNARE TQ 05/27/07 COLSC FLX W/RMVL OF TUMOR POLYP LESION SNARE TQ 08/09/10 PAST SURGICAL HISTORY OF 1997 arthroscopic lt knee surg PAST SURGICAL HISTORY OF 1999 Rt foot great toe fusion TONSILLECTOMY & ADENOIDECTOMY <AGE 11 ALLERGIES Cephalosporins, Doxycycline, and Mirtazapine MEDICATIONS Current Outpatient Medications Medication Sig traZODone (DESYREL) 50 mg tablet Take 1 tablet by mouth daily at bedtime. For sleep furosemide (LASIX) 20 mg tablet Take 1 tablet by mouth once daily as needed. For weight increase of3 lb acetaminophen (TYLENOL) 500 mg tablet Take 1 tablet by mouth every 6 hours as needed for pain. docusate sodium (COLACE) 100 mg capsule Take 1 capsule by mouth two times a day as needed for constipation. cloNIDine HCl (CATAPRES) 0.1 mg tablet Take 1 tablet by mouth once daily. amLODIPine (NORVASC) 10 mg tablet Take 1 tablet by mouth once daily. metFORMIN ER (GLUCOPHAGE XR) 500 mg 24 hr tablet Take 1 tablet by mouth daily with breakfast. rivaroxaban (XARELTO) 20 mg tablet Take 1 tablet by mouth daily with dinner. atorvastatin (LIPITOR) 20 mg tablet Take 1 tablet by mouth daily at bedtime. For cholesterol. lisinopril (ZESTRIL) 40 mg tablet Take 1 tablet by mouth once daily. allopurinol (ZYLOPRIM) 100 mg tablet Take 1 tablet by mouth once daily. carvedilol (COREG) 3.125 mg tablet Take 3.125 mg by mouth twice daily with meals. Cholecalciferol, Vitamin D3, 2,000 unit cap Take 1 tablet by mouth once daily. No current facility-administered medications for this visit. FAMILY HISTORY Problem Relation Age of Onset Cancer Father lymphoma GI Mother Coronary Artery Disease Brother Ischemic Heart Disease Mother Social History Tobacco Use Smoking status: Former Types: Cigarettes Smokeless tobacco: Never Tobacco comments: Quit 1975 1-2 cig daily on the weekends Vaping Use Vaping status: Never Used Substance Use Topics Alcohol use: Yes Comment: rarely Drug use: No Tired. [place] clammy and lightheaded. Can't sleep. No N/V. No diaphoresis. Doesn't like to be "taken care of" Pt. Wanted katelyn out- surgeon agreed and wanted to at least see wound. Daughter sent picture. EXAM: BP 118/60 Pulse 94 Temp 36.4 C (97.5 F) (Tympanic) Resp 16 Wt 82.1 kg (181 lb) SpO2 97% BMI 25.97 kg/m PHYSICAL EXAM: Physical Exam Constitutional: Appearance: Normal appearance. HENT: Head: Normocephalic. Cardiovascular: Rate and Rhythm: Normal rate and regular rhythm. Pulses: Normal pulses. Heart sounds: Normal heart sounds. Pulmonary: Effort: Pulmonary effort is normal. Breath sounds: Normal breath sounds. Abdominal: General: There is no distension. Palpations: Abdomen is soft. Tenderness: There is no abdominal tenderness. There is no guarding or rebound. Musculoskeletal: General: Normal range of motion. Comments: Generalized weakness Skin: General: Skin is warm and dry. Comments: Incision well approximated- staple sites red and inflamed. Tender. No drainage. Neurological: Mental Status: He is alert. 90/48 sitting, 94/56 standing LABS: ASSESSMENT/PLAN: 1. Essential hypertension - ICD9: 401.9, ICD10: I10 (primary diagnosis) - Controlled - Recommend home blood pressure monitoring, to bring results to next visit - Encouraged sodium restriction, DASH or Mediterranean diet - Recommend regular aerobic exercise - AMLODIPINE 5 MG TABLET reduced from 10 mg d/t low BP; may wean off 2. Major depressive disorder with current active episode, unspecified depression episode severity, unspecified whether recurrent - ICD9: 296.30, ICD10: F32.9 Ongoing - TRAZODONE 100 MG TABLET increased from 50 mg daily 3. Chronic insomnia - ICD9: 780.52, ICD10: F51.04 Not achieving rest or improved mood - TRAZODONE 100 MG TABLET increased from 50 mg 4. 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) - ICD9: 255.8, ICD10: E27.8 - [place] removed - Steri strips applied to center of incision for added support Discussed treatment plan and patient voices understanding. Patient's questions answered appropriately. Medications and potential side effects were discussed and patient voices understanding. Return to the office as scheduled or as needed for worsening/no improvement. Vianney Sahu APRN.GEMA documented in this encounterMi[facility]09-25-2024 NoteChildren[facility]-25-2024 History of Present illness Narrative* Arredondo, Loli, RN - 03/17/2024 2:55 PM EDT Transitional Care Management (TCM) Follow-Up Note PCP Update / Actionable Items N/A - No specialty updates needed Patient Source: In-Network Discharge Follow-up outreach: TCM enrolled patient Outreach Summary: TCM Update Spoke with patient Patient states he is doing better States incision is healing well Having katelyn removed on Friday Pain is improved Eating and drinking well States he does have some lower back pain States he has been having this since before surgery, occasionally takes tylenol with relief No mention of any further new or worsening symptoms Denies any further needs or concerns. Advised to notify PCP for recurring, new/worsening symptoms. Verbalized understanding. Patient discharged from [facility] Discharge date: 03/09/2024 Admitted for: adrenalectomy Readmission Risk: 19 Value-Based Contract: Jorge MORALES Contact: Contact made with patient: Yes Spoke to: Patient Validation: Validated the person spoken to is actively involved in the patient's care. The patient was identified by Name and Date of . I'd like to get an update on how you're doing since our last phone call. Is now a good time to talk? Yes Symptoms: Are you feeling about the same, better or worse since leaving the hospital? Better Weekly Outreach: 1st Outreach Medications: Do you have any questions about taking your medications, including which medications you should be on, or do you need refills on your medications? No Patient Questions / Concerns: Do you have any questions related to your discharge? No Appointment / TCM Follow-Up: Have you had a follow-up visit with your Primary Care Provider or Specialist since you were discharged? Yes Education N/A Targets addressed / completed during outreach: N/A Outreach Outcome: Continue TCM Outreach for remainder of 30 days Care Management partners utilized: N/A Loli Arredondo RN March 17, 2024 2:59 PM documented in this encounterMiami Valley Hospital09-23-2024 Telephone encounter Note * Telephone Encounter - Ashley Portillo LPCC - 03/15/2024 4:02 PM EDT Behavioral Health Social Work Progress Note Patient identified for [facility] from: PCP Reason for referral: [facility] Behavioral Health Resources: Psychology - talk therapy [facility] encounter type: Telephone Encounter Attempts to Outreach: 1 attempt Referral made: Psychology - External Psychology-External referral type: Therapy Reason for external referral: Patient choice, Patient needs services closer to home Final Disposition: Resources given Patient Discharged?: Yes Patient reported that caregiver was able to meet their needs today?: Yes therapist spoke with patient, he states that he would be interested in counseling services near his home. He was agreeable to resources being sent to [facility]. MOOSE Perez March 15, 2024 [facility] Work Phone: [phone] Miscellaneous Notes* Telephone Encounter - Ashley Portillo LPCC - 03/15/2024 4:02 PM EDT Behavioral Health Social Work Progress Note Patient identified for [facility] from: PCP Reason for referral: [facility] Behavioral Health Resources: Psychology - talk therapy [facility] encounter type: Telephone Encounter Attempts to Outreach: 1 attempt Referral made: Psychology - External Psychology-External referral type: Therapy Reason for external referral: Patient choice, Patient needs services closer to home Final Disposition: Resources given Patient Discharged?: Yes Patient reported that caregiver was able to meet their needs today?: Yes therapist spoke with patient, he states that he would be interested in counseling services near his home. He was agreeable to resources being sent to [facility]. MOOSE Perez March 15, 2024 documented in this encounterMiami Valley Hospital09-23-2024 Telephone encounter Note * Telephone Encounter - Vianney Sahu APRN.CNP - 03/15/2024 3:53 PM EDT Can we have pt. Come in or Friday just for staple removal? [facility] Miscellaneous Notes* Telephone Encounter - Vianney Sahu APRN.GEMA - 03/15/2024 3:53 PM EDT Can we have pt. Come in or Friday just for staple removal? documented in this encounterMiami Valley Hospital09-23-2024 Telephone encounter Note * Telephone Encounter - CarlosAmelia calixto - 03/15/2024 3:37 PM EDT Spoke with Pt's daughterCaren. States th pt's PCP offered to remove pt's katelyn if Dr. Roberts gives permission. RN verified with surgeon and advised Caren that the PCP may remove the katelyn "as long as the skin looks healed under the katelyn." Daughter will arrange for appointment with PCPin the next few days. Will send a picture via [email or web address] shortly before their postop phone call with Dr. Roberts on 03/25. Amelia Gonzalez RN [facility]09-23-2024 Miscellaneous Notes* Telephone Encounter - Amelia Gonzalez - 03/15/2024 3:37 PM EDT Spoke with Pt's daughterCaren. States th pt's PCP offered to remove pt's katelyn if Dr. Roberts gives permission. RN verified with surgeon and advised Caren that the PCP may remove the katelyn "as long as the skin looks healed under the katelyn." Daughter will arrange for appointment with PCPin the next few days. Will send a picture via [email or web address] shortly before their postop phone call with Dr. Roberts on 03/25. Amelia Gonzalez RN documented in this encounterMiami Valley Hospital09-23-2024 Instructions* Patient Instructions* Vianney Sahu APRN.CNP - 03/15/2024 2:10 PM EDT - See Dr. Carmona in April - Consult Mental Health - No change in medication - Call Surgeon and ask for video visit and if we can remove katelyn - May take furosemide only daily as needed for weight increase of 3 or more lbs. - Consult corn lab technician - Trazodone 50 mg at bedtime for sleep documented in this encounterMiami Valley Hospital09-23-2024 NoteChildren'S [facility] For Rehabilitation09-23-2024 History of Present illness Narrative* Vianney Sahu APRN.CNP - 03/15/2024 1:48 PM EDT This is a 83 year old male who presents today with: Patient presents with: Hospital F/U: [facility] 03/05-03/09 Dizziness HISTORY OF PRESENT ILLNESS: April Quesada is a 83 year old male. Patient presents with: Hospital F/U: [facility] 03/05-03/09 Dizziness Here today for hospital follow up from adrenal mass removal. Dizzy. Mirtazapine not effective and causes dizziness. Still grieving loss of . Back on blood thinner- DOAC. No falls. Not sleeping. Moving bowels ok. Urinating fine. Eating but not much appetite. Would like katelyn removed. Tender to the touch. PAST MEDICAL HISTORY: PAST MEDICAL HISTORY Diagnosis Date Anxiety state, unspecified Benign neoplasm of colon Carotid stenosis Depressive disorder, not elsewhere classified Diverticulosis of colon (without mention of hemorrhage) DM (diabetes mellitus) (HCC) Gout Hearing loss wears hearing aids Hypertrophy of prostate without urinary obstruction and other lower urinary tract symptoms (LUTS) Impotence of organic origin Obesity, unspecified Other and unspecified hyperlipidemia Personal history of colonic polyps Skin cancer, basal cell [employer] [place] Unspecified essential hypertension PAST SURGICAL HISTORY Procedure Laterality Date CARDIAC CATH 01/16/2017 CARDIOVERSION 2017 COLONOSCOPY FLX DX W/COLLJ SPEC WHEN PFRMD 03/03/2014 Colonoscopy COLONOSCOPY FLX DX W/COLLJ SPEC WHEN PFRMD 05/31/2019 Colonoscopy COLSC FLX W/RMVL OF TUMOR POLYP LESION SNARE TQ 05/27/07 COLSC FLX W/RMVL OF TUMOR POLYP LESION SNARE TQ 08/09/10 PAST SURGICAL HISTORY OF 1997 arthroscopic lt knee surg PAST SURGICAL HISTORY OF 1999 Rt foot great toe fusion TONSILLECTOMY & ADENOIDECTOMY <AGE 11 ALLERGIES Cephalosporins and Doxycycline MEDICATIONS Current Outpatient Medications Medication Sig acetaminophen (TYLENOL) 500 mg tablet Take 1 tablet by mouth every 6 hours as needed for pain. docusate sodium (COLACE) 100 mg capsule Take 1 capsule by mouth two times a day as needed for constipation. mirtazapine (REMERON) 7.5 mg tablet Take 1 tablet by mouth daily at bedtime. cloNIDine HCl (CATAPRES) 0.1 mg tablet Take 1 tablet by mouth once daily. amLODIPine (NORVASC) 10 mg tablet Take 1 tablet by mouth once daily. metFORMIN ER (GLUCOPHAGE XR) 500 mg 24 hr tablet Take 1 tablet by mouth daily with breakfast. rivaroxaban (XARELTO) 20 mg tablet Take 1 tablet by mouth daily with dinner. furosemide (LASIX) 20 mg tablet Take 1 tablet by mouth once daily. atorvastatin (LIPITOR) 20 mg tablet Take 1 tablet by mouth daily at bedtime. For cholesterol. lisinopril (ZESTRIL) 40 mg tablet Take 1 tablet by mouth once daily. allopurinol (ZYLOPRIM) 100 mg tablet Take 1 tablet by mouth once daily. carvedilol (COREG) 3.125 mg tablet Take 3.125 mg by mouth twice daily with meals. Cholecalciferol, Vitamin D3, 2,000 unit cap Take 1 tablet by mouth once daily. No current facility-administered medications for this visit. FAMILY HISTORY Problem Relation Age of Onset Cancer Father lymphoma GI Mother Coronary Artery Disease Brother Ischemic Heart Disease Mother Social History Tobacco Use Smoking status: Former Types: Cigarettes Smokeless tobacco: Never Tobacco comments: Quit 1975 1-2 cig daily on the weekends Vaping Use Vaping status: Never Used Substance Use Topics Alcohol use: Yes Comment: rarely Drug use: No EXAM: BP 132/60 Pulse 90 Temp 36.6 C (97.8 F) (Tympanic) Wt 80.7 kg (178 lb) SpO2 98% BMI 25.54kg/m PHYSICAL EXAM: Physical Exam Vitals reviewed. Constitutional: Appearance: Normal appearance. HENT: Head: Normocephalic. Cardiovascular: Rate and Rhythm: Normal rate. Rhythm irregular. Pulses: Normal pulses. Heart sounds: Normal heart sounds. Pulmonary: Effort: Pulmonary effort is normal. Breath sounds: Normal breath sounds. Abdominal: General: Bowel sounds are normal. Palpations: Abdomen is soft. Musculoskeletal: General: No tenderness or deformity. Normal range of motion. Skin: General: Skin is warm and dry. Comments: Incision left upper abdomen, katelyn red at insertion sites Neurological: Mental Status: He is alert. Psychiatric: Comments: Very depressed, can't sleep BP 130/60 sitting, 130/70 standing FBS- 113- 161; other BSS 110-284 LABS: ASSESSMENT/PLAN: 1. Major depressive disorder with current active episode, unspecified depression episode severity, unspecified whether recurrent - ICD9: 296.30, ICD10: F32.9 (primary diagnosis) Ongoing - TRAZODONE 50 MG TABLET at bedtime for sleep - CONSULT TO PRIMARY CARE BEHAVIORAL HEALTH ADULT 2. Essential hypertension - ICD9: 401.9, ICD10: I10 - Controlled - Recommend home blood pressure monitoring, to bring results to next visit - Encouraged sodium restriction, DASH or Mediterranean diet - Recommend regular aerobic exercise - May reduce furosemide to daily as needed for weight increase of 3 lb 3. Mixed hyperlipidemia - ICD9: 272.2, ICD10: E78.2 - Controlled - Counseled on healthy diet and regular exercise 4. Paroxysmal atrial fibrillation (HCC) - ICD9: 427.31, ICD10: I48.0 Ongoing - On Xarelto 5. Malnutrition of moderate degree (HCC) - ICD9: 263.0, ICD10: E44.0 Ongoing 6. Type 2 diabetes mellitus without complication, unspecified whether senior care insulin use (HCC) -ICD9: 250.00, ICD10: E11.9 - Controlled - Continue current medications 7. 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) - ICD9: 255.8, ICD10: E27.8 Removed 8. Dizziness - ICD9: 780.4, ICD10: R42 Ongoing 9. Chronic insomnia - ICD9: 780.52, ICD10: F51.04 Consult mental health - TRAZODONE 50 MG TABLET Discussed treatment plan and patient voices understanding. Patient's questions answered appropriately. Medications and potential side effects were discussed and patient voices understanding. Return to the office as scheduled or as needed for worsening/no improvement. Vianney Sahu APRN.CANDLES POURER documented in this encounterMiami Valley Hospital09-18-2024 Telephone encounter Note * Telephone Encounter - Amelia Gonzalez - 03/10/2024 3:49 PM EDT Called pt after Dr. Roberts reviewed pictures. Advised pt that swelling is likely caused by fluid accumulation after surgery and that it should resolve on its own. Pt is eating normally and hashad BM. Also per surgeon, advised pt to apply neosporin and cover wound with gauze. Pt will need tocome into office on Thursday 03/22 for staple removal. Pt voiced understanding of all information. Anita Gonzalez RN [facility]09-18-2024 Miscellaneous Notes* Telephone Encounter - Amelia Gonzalez - 03/10/2024 3:49 PM EDT Called pt after Dr. Roberts reviewed pictures. Advised pt that swelling is likely caused by fluid accumulation after surgery and that it should resolve on its own. Pt is eating normally and hashad BM. Also per surgeon, advised pt to apply neosporin and cover wound with gauze. Pt will need tocome into office on Thursday 03/22 for staple removal. Pt voiced understanding of all information. Anita Gonzalez, RN documented in this encounterMiami Valley Hospital09-18-2024 Telephone encounter Note * Telephone Encounter - Enrrique Carmona MD - 03/10/2024 1:30 PM EDT Noted. Thank you. [facility]09-18-2024 Miscellaneous Notes* Telephone Encounter - Enrrique Carmona MD - 03/10/2024 1:30 PM EDT Noted. Thank you. * Telephone Encounter - Richelle Lees RN - 03/10/2024 12:10 PM EDT Patient triaged for SOB (mild) on-going since surgery and passing of spouse. Denies SOB currently, CP, cough, fever, or edema. Reviewed red flag symptoms to go to ER for. Patient verbalizes understanding. Nurse triage recommends see provider within 2 weeks. Patient is waiting to hear back from daughter on appointment that will work for ER follow up. Reason for Disposition [1] MILD longstanding difficulty breathing AND [2] SAME as normal Answer Assessment - Initial Assessment Questions 1. RESPIRATORY STATUS: Patient reports that he wakes up sometimes in the night and feels like he can't get back to sleep. Patient reports that he has to take a few deep breaths and feels like he can't catch his breath for about 30 seconds. He reports that his spouse about a month ago and he is certain that the reason he is feeling this way is emotional and just not having her there is hard. He currently denies SOB, CP, Cough, fever, or edema. 2. ONSET: Since surgery and the loss of his 3. PATTERN: only occurs at night time 4. SEVERITY: - MILD: No SOB at rest, mild SOB with walking, speaks normally in sentences, can lie down, no retractions, pulse < 100. 5. RECURRENT SYMPTOM: No 6. CARDIAC HISTORY: No history of heart attack, angina, bypass surgery, angioplasty 7. LUNG HISTORY: No pulmonary embolus, asthma, emphysema 8. CAUSE: Patient reports that he believes it is emotional and coping with the loss of his . 9. OTHER SYMPTOMS: No dizziness, runny nose, cough, chest pain, fever 10. O2 SATURATION MONITOR: Patient has a pulse oximeter but hadn't thought about using it. Recommended that he leave it at the bedside so that if he has these spells at night time he can monitor his oxygen levels just to verify that his levels really aren't dropping. Patient verbalizes he will do that. Protocols used: Breathing [id number] documented in this encounterMiami Valley Hospital09-18-2024 NoteChildren'S [facility]09-18-2024 History of Present illness Narrative* Amelia Gonzalez - 03/10/2024 12:43 PM EDT Spoke with patient and his son. States he took first dose of oxycodone 'about 2 hours ago'. Rates pain at 5/10 now. Pt also taking tylenol and ibuprofen. Advised, per Dr. Roberts, pt may take 600 mg TID with meals. Pt also agrees to take photos of incision for review by the surgeon. States heand his son don't know how to attach to mychart but will forward pics to his daughter and she will attach them. Advised will followup with any further instructions. Pt voiced understanding. Amelia Gonzalez RN * Maryana Sahni MA - 03/10/2024 11:47 AM EDT POPULATION HEALTH NAVIGATION OUTREACH Action/[facility]I CM Pool Message: Type: TCM Please assist with scheduling TCM Hospital Discharge Follow up. TCM Eligible until 03/23/2024 Outcomes: Spoke to patient and his son who was also on the call and scheduled Video visit for Friday03/12/24 but patient's daughter has to help him with this visit so needs to verify day and time is ok with her. When finishing scheduling noticed that patient is also scheduled on Friday, 03/15 for sleep apnea somodified appointment notes to include hospital follow up if unable to do video visit on Friday. Patient was not aware of this appointment yet. Patient and family will contact office if needing to cancel or reschedule. Advised patient and son of scheduled nurse call for today as well. Reason for Outreach Community Monitoring/Network Navigator Pools & Phone Line: TCM Patient Contacted: Spoke to patient/parent/or legal guardian Patient identified by name and : Yes Community Monitoring/Network Navigator Pools & Phone Line actions taken: Patient scheduled: Hospital Follow-up 03/10/2024 in NURSE PHONE TRIAGE [facility] with N[facility]SE [facility] - see Neyhart daughter sent about ? sleep apnea just had surgery, he talked to TCM RN this morning and didn't mention this?, Can schedule him with Dr Carmona on 03/16 in AM for 40 min hospital follow up 03/12/2024 in [facility] with VIANNEY SAHU - Hospital Discharge Follow up -TCM Eligible until 03/23/2024 03/15/2024 in [facility] with VIANNEY SAHU - Hospital Follow Up - TCM Eligible until 03/23(if unable to do Video Visit on 03/12) and to discuss Possible Sleep Apnea 03/25/2024 in [facility] with MARCEL ROBERTS - post op 05/04/2024 in [facility] with ENRRIQUE CARMONA - 6 month follow up Navigation Signature: Maryana Sahni MA March 10, 2024 11:47 AM * Loli Arredondo, JODEE - 03/10/2024 11:23 AM EDT Transition Care Management (TCM) Initial Outreach PCP Update / Actionable Items 03/25/2024-phone post op appt Dr. Roberts-patient reports he is not getting good pain relief with tylenol and oxycodone. Reports his pain is consistently at 7/10, does not decrease after taking meds. Taking tylenol and oxycodone as prescribed. Pain is making ambulation difficult. Patient reports he is noticing some "gaping between his katelyn. Katelyn are all intact. No leakingfrom incision. Patient is also asking why the "bulge" at his left lower abdomen is still present after his surgery. Please see below for further TCM Outreach information/details. Navigation Team Update / Actionable Items Please assist with scheduling TCM Hospital Discharge Follow up. TCM Eligible until 03/23/2024 [facility] Home [facility] Referral Source of Stratification: [facility] Hospital Admission Status: Discharged Readmission Risk Score: 19 Patient's zip code: [address] Is zip code within program service area: No Patient meets program referral criteria: No Patient does not qualify for High Risk TCM Home Visit program due to: Patient's zip code is not located within program service area Readmission Risk Score does not meet criteria Disposition: [facility] not [facility], will provide TCM outreach follow-up for 30-days Patient Source: In-Network Discharge Initial outreach: TCM discharge report Outreach Summary: . TCM Update Spoke with patient Patient states he did not sleep well last night States he is having pain at incision Took oxycodone about an hour ago Rates pain 7/10 Reports pain meds are not helping with his discomfort Had a bowel movement yesterday Taking colace Incision is open to air, katelyn are all intact Reports some "gaping", denies any leaking fluid from site Using walker for ambulation Patient states prior to surgery he had a "bulge on his left lower abdomen Patient is questioning why this bulge is still there after his surgery Will send message to provider Reviewed new / changed medications (purpose, side effects, precautions). No mention of any further new or worsening symptoms Denies any further needs or concerns. Offered further Discharge AVS review which includes Medication Schedule, Medications needs/concerns, Social Work, Behavioral Health Social Work, equipment, follow up instructions, politely declined. Advised to notify PCP for recurring, new/worsening symptoms. Verbalized understanding. START taking these medications acetaminophen 500 mg tablet Take 1 tablet by mouth every 6 hours as needed for pain. docusate sodium 100 mg capsule Take 1 capsule by mouth two times a day as needed for constipation. oxyCODONE IR 5 mg immediate release tablet Take 1 tablet by mouth every 8 hours as needed for pain for up to 5 days. Patient discharged from [facility] Discharge date: 03/09/2024 Admitted for: adrenalectomy Readmission Risk: 19 Value-Based Contract: Jorge MORALES Contact: Contact made with patient: Yes Hi, my name is Loli Arredondo RN and I am calling from the [facility] on behalf of your Primary Care Provider, Enrrique Carmona MD. I understand you were recently in the hospital, so I am calling to check in with you to ensure you are feeling well now that you are home. May I ask you a few questions related to your hospital stay and well-being? Yes Spoke to: Patient Validation: Validated the person spoken to is actively involved in the patient's care. The patient was identified by Name and Date of . Symptoms: Are you feeling about the same, better or worse since leaving the hospital? Same Medications: Do you have any questions about taking your medications, including which medications you should be on, or do you need refills on your medications? No Medication Review: Partial mediation review completed, per patient preference Discharge Instructions: Your Discharge Instructions / After Visit Summary (AVS) are important in guiding you through the recovery process. Do you have any questions related to your discharge instructions? No Home Care: Were you discharged with home care? No Equipment: Do you have all the necessary equipment and supplies needed at your home? Yes Social: We would like to make sure you have what you need so that your basics needs are met - including your personal safety, food, housing and medications. Would you like to speak with a social work steam box operator to help give you support for any of these needs? No It can be normal to feel anxious or down during a time like this. Would you like to talk to a mental health professional about how you have been feeling? No Action Taken: No needs verbalized. No action required. Follow-Up Appointment: [Appointment / TCM Follow-up within 14 days] I would like to help you schedule a hospital follow-up virtual or telephone visit with your PCP. This is a great way for you to connect with your provider to ensure you have safely transitioned home.If you are agreeable, I will send your request to a bomb technician who will contact and assist you with that appointment. This will give you an opportunity to ask any questions or address any concerns youmay have with your PCP. Inform the patient that if they have any questions or concerns prior to that appointment, to call their PCP's office right away. Appointment Action: Patient desires an appointment. Complete Navigation Team box and route to [facility] ([id number]) for scheduling. Education Patient and family educated on issues/questions related to reason for admission, transition of caretopics, and follow-up needed upon discharge. Targets addressed / completed during outreach: Contact patient within two (2) business days Outreach Outcome: Enrolled in [facility] Care Management partners utilized: Navigation Team Loli Arredondo RN March 10, 2024 11:29 AM documented in this [facility] Telephone encounter Note * Telephone Encounter - Richelle Lees RN - 03/10/2024 12:10 PM EDT Patient triaged for SOB (mild) on-going since surgery and passing of spouse. Denies SOB currently, CP, cough, fever, or edema. Reviewed red flag symptoms to go to ER for. Patient verbalizes understanding. Nurse triage recommends see provider within 2 weeks. Patient is waiting to hear back from daughter on appointment that will work for ER follow up. Reason for Disposition [1] MILD longstanding difficulty breathing AND [2] SAME as normal Answer Assessment - Initial Assessment Questions 1. RESPIRATORY STATUS: Patient reports that he wakes up sometimes in the night and feels like he can't get back to sleep. Patient reports that he has to take a few deep breaths and feels like he can't catch his breath for about 30 seconds. He reports that his spouse about a month ago and he is certain that the reason he is feeling this way is emotional and just not having her there is hard. He currently denies SOB, CP, Cough, fever, or edema. 2. ONSET: Since surgery and the loss of his 3. PATTERN: only occurs at night time 4. SEVERITY: - MILD: No SOB at rest, mild SOB with walking, speaks normally in sentences, can lie down, no retractions, pulse < 100. 5. RECURRENT SYMPTOM: No 6. CARDIAC HISTORY: No history of heart attack, angina, bypass surgery, angioplasty 7. LUNG HISTORY: No pulmonary embolus, asthma, emphysema 8. CAUSE: Patient reports that he believes it is emotional and coping with the loss of his . 9. OTHER SYMPTOMS: No dizziness, runny nose, cough, chest pain, fever 10. O2 SATURATION MONITOR: Patient has a pulse oximeter but hadn't thought about using it. Recommended that he leave it at the bedside so that if he has these spells at night time he can monitor his oxygen levels just to verify that his levels really aren't dropping. Patient verbalizes he will do that. Protocols used: Breathing [id number] [facility] Note [facility] Note [facility] History of Present illness Narrative* Enrrique Carmona MD - 03/04/2024 11:00 AM EDT Images from the original note were not included. Patient presents with: Follow Up HPI:This visit is a virtual encounter. It required patient-provider interaction for the medical decision making as documented below. Patient has elected to have a visit through distance medicine I have communicated my name and active licensure. The patient's identity and physical location wereverified at the time of this visit. Either the patient or their legal franchise sales representative has been informed of the risks and benefits of -- and alternatives to -- treatment through a remote evaluation andconsents to proceed with the evaluation remotely. Scheduled for adrenalectomy tomorrow. Had pretesting yesterday. See below. Echo and carotids done be cardiology who had cleared him for surgery. Is having severe stress with of and diagnosis of very large abd mass that is scheduled for surgery in am. His weight loss is closer to 20 lbs on our scales. Has had endo work up. His powderer in November was aware of dizziness. Not necessarily new. Sees cardiology today. He is non compliant with meds that might well help. He has early satiety, which is likely coming from his adrenal mass. He is holding the xarelto. No headache. No new numbness or weakness. No speech changes. Just stated remeron two days ago that should help with his depression, insomnia and intake. He feels his depression is the worst thing he has now. No suicidal ideation. Discussed upcoming surgery. Sugars have been ok when he is symptomatic. No severe hypoglycemic. See note from Niecy Washington, copied and pasted: Stephen Carmona, I saw Mr. Quesada today for his H&P for upcoming surgery for adrenalectomy at 03/05/2024. Pt with complaints of dizziness the past 3 months intermittently with no known triggers per pt. Also withcomplaints of shakiness. 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 He recently had carotid US and echo 12/26/2023 Labs pending as I updated his A1c. Pt is still taking Metformin. He reports insomnia 2/2 grieving. NO anti-depressants prescribed. Was prescribed Remeron that he never started until last night, states helped some. He had an appt yesterday with your PA, but states he failed to mention these above complaints. Pt and daughter states he went to a commercial IV fluid clinic here in [place] yesterday and had a bag of IV fluid with extra electrolytes added, states helped some but still doesn't feel well. Last 14 BP Last 14 Encounter BP Readings: Date: BP: 03/03/2024 120/72 03/02/2024 138/78 02/13/2024 129/68 02/10/2024 134/68 01/23/2024 138/81 01/16/2024 118/62 01/05/2024 136/82 10/31/2023 130/62 10/03/2023 132/58 04/02/2023 121/78 12/26/2022 122/80 09/26/2022 124/68 04/29/2022 114/67 03/28/2022 142/70 MEDICATIONS: Current Outpatient Medications Medication Sig mirtazapine (REMERON) 7.5 mg tablet Take 1 tablet by mouth daily at bedtime. cloNIDine HCl (CATAPRES) 0.1 mg tablet Take 1 tablet by mouth once daily. amLODIPine (NORVASC) 10 mg tablet Take 1 tablet by mouth once daily. metFORMIN ER (GLUCOPHAGE XR) 500 mg 24 hr tablet Take 1 tablet by mouth daily with breakfast. rivaroxaban (XARELTO) 20 mg tablet Take 1 tablet by mouth daily with dinner. furosemide (LASIX) 20 mg tablet Take 1 tablet by mouth once daily. atorvastatin (LIPITOR) 20 mg tablet Take 1 tablet by mouth daily at bedtime. For cholesterol. lisinopril (ZESTRIL) 40 mg tablet Take 1 tablet by mouth once daily. allopurinol (ZYLOPRIM) 100 mg tablet Take 1 tablet by mouth once daily. carvedilol (COREG) 3.125 mg tablet Take 3.125 mg by mouth twice daily with meals. Cholecalciferol, Vitamin D3, 2,000 unit cap Take 1 tablet by mouth once daily. No current facility-administered medications for this visit. ALLERGIES: ALLERGIES Allergen Reactions Cephalosporins Rash Doxycycline Rash photosensitivity dermatitis PAST MEDICAL HISTORY No date: Anxiety state, unspecified No date: Benign neoplasm of colon No date: Carotid stenosis No date: Depressive disorder, not elsewhere classified No date: Diverticulosis of colon (without mention of hemorrhage) No date: DM (diabetes mellitus) (HCC) No date: Gout No date: Hearing loss Comment: wears hearing aids No date: Hypertrophy of prostate without urinary obstruction and other lower urinary tract symptoms (LUTS) No date: Impotence of organic origin No date: Obesity, unspecified No date: Other and unspecified hyperlipidemia No date: Personal history of colonic polyps No date: Skin cancer, basal cell Comment: [employer] [place] No date: Unspecified essential hypertension PAST SURGICAL HISTORY 01/16/2017: CARDIAC CATH 2017: CARDIOVERSION 03/03/2014: COLONOSCOPY FLX DX W/COLLJ SPEC WHEN PFRMD Comment: Colonoscopy 05/31/2019: COLONOSCOPY FLX DX W/COLLJ SPEC WHEN PFRMD Comment: Colonoscopy 05/27/07: COLSC FLX W/RMVL OF TUMOR POLYP LESION SNARE TQ 08/09/10: COLSC FLX W/RMVL OF TUMOR POLYP LESION SNARE TQ 1998: PAST SURGICAL HISTORY OF Comment: arthroscopic lt knee surg 2000: PAST SURGICAL HISTORY OF Comment: Rt foot great toe fusion No date: TONSILLECTOMY & ADENOIDECTOMY <AGE 11 FAMILY HISTORY Problem Relation Age of Onset Cancer Father lymphoma GI Mother Coronary Artery Disease Brother Ischemic Heart Disease Mother Social History Tobacco Use Smoking status: Former Types: Cigarettes Smokeless tobacco: Never Tobacco comments: Quit 1975 1-2 cig daily on the weekends Vaping Use Vaping status: Never Used Substance Use Topics Alcohol use: Yes Comment: rarely Drug use: No Reviewed current medications, allergies, past medical history, surgical history, family history andsocial history today. REVIEW OF SYSTEMS All other reviewed and negative other than HPI. VITALS: Could not assess Last 4 Encounter Wt Readings: Date: Wt: 03/03/2024 85.7 kg (189 lb) 03/02/2024 87.1 kg (192 lb) 02/13/2024 85 kg (187 lb 6.3 oz) 02/10/2024 86.2 kg (190 lb) PHYSICAL EXAMINATION: Patient is alert and oriented during visit. Answers appropriately. Breathing comfortably.. chest rise normal. No audible wheeze. Normal pallor. ASSESSMENT/PLAN: 1. Lightheaded - ICD9: 780.4, ICD10: R42 (primary diagnosis) - seeing cardiology at 1 pm today. Defer to them. As long as they feel we are ok, still ok for surgery. Monitor intake and sugars while occurring. 2. 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) - ICD9: 255.8, ICD10: E27.8 - needs surgery. 3. Type 2 diabetes mellitus without complication, without long-term current use of insulin (HCC) - ICD9: Has been stable. 4. Weight loss - ICD9: 783.21, ICD10: R63.4 - likely related to his stress caring for his and then her passing coupled with the adrenal mass Remeron and surgery, likely will help. 5. Grief reaction - ICD9: 309.0, ICD10: F43.21 -as above 6. Essential hypertension - ICD9: 401.9, ICD10: I10 -getting rechecked by surgery today. Enrrique Carmona MD Follow up after surgery. documented in [facility] encounterMi[facility]09-[facility]24 [facility] Telephone encounter Note* Telephone Encounter - Amelia Gonzalez - 03/03/2024 3:43 PM EDT Spoke with patient's daughter, Caren Macario, prior to sending message. She is aware to watch for instructions. Amelia Gonzalez RN [facility]09-11-2024 Miscellaneous Notes* Telephone Encounter - Amelia Gonzalez - 03/03/2024 3:43 PM EDT Spoke with patient's daughter, Caren Macario, prior to sending message. She is aware to watch for instructions. Amelia Gonzalez RN documented in this encounterMiami [facility] Hospital09-11-2024 Telephone encounter Note * Telephone Encounter - Elizabeth Marsh LPN - 03/03/2024 1:50 PM EDT Spoke with Nima. He is going to speak with daughter and will notify office of any problems/questions. [facility]09-11-2024 Miscellaneous Notes* Telephone Encounter - Elizabeth Marsh LPN - 03/03/2024 1:50 PM EDT Spoke with Nima. He is going to speak with daughter and will notify office of any problems/questions. * Telephone Encounter - Enrrique Carmona MD - 03/03/2024 12:[address] we can put him on a virtual on my one open spot at [facility] in am. * Telephone Encounter - Niecy Washington APRN.CANDLES POURER - 03/03/2024 10:27 AM EDT Images from the original note were not included. Hi Dr. Carmona, I saw Mr. Quesada today for his H&P for upcoming surgery for adrenalectomy at 03/05/2024. Pt with complaints of dizziness the past 3 months intermittently with no known triggers per pt. Also withcomplaints of shakiness. 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 He recently had carotid US and echo 12/26/2023 Labs pending as I updated his A1c. Pt is still taking Metformin. He reports insomnia 2/2 grieving. NO anti-depressants prescribed. Was prescribed Remeron that he never started until last night, states helped some. He had an appt yesterday with your PA, but states he failed to mention these above complaints. Pt and daughter states he went to a commercial IV fluid clinic here in [place] yesterday and had a bag of IV fluid with extra electrolytes added, states helped some but still doesn't feel well. Last 14 BP Last 14 Encounter BP Readings: Date: BP: 03/03/2024 120/72 03/02/2024 138/78 02/13/2024 129/68 02/10/2024 134/68 01/23/2024 138/81 01/16/2024 118/62 01/05/2024 136/82 10/31/2023 130/62 10/03/2023 132/58 04/02/2023 121/78 12/26/2022 122/80 09/26/2022 124/68 04/29/2022 114/67 03/28/2022 142/70 documented in this encounterMiami [facility]09-[facility]-2024 Telephone encounter Note * Telephone Encounter - Enrrique Carmona MD - 03/03/2024 12:15 PM EDT Any way we can put him on a virtual on my one open spot at [facility] in am. [facility]09-[facility] Telephone encounter Note* Telephone Encounter - Niecy Washington APRN.CNP - 03/03/2024 10:27 AM EDT Images from the original note were not included. Hi Dr. Carmona, I saw Mr. Quesada today for his H&P for upcoming surgery for adrenalectomy at 03/05/2024. Pt with complaints of dizziness the past 3 months intermittently with no known triggers per pt. Also withcomplaints of shakiness. 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 He recently had carotid US and echo 12/26/2023 Labs pending as I updated his A1c. Pt is still taking Metformin. He reports insomnia 2/2 grieving. NO anti-depressants prescribed. Was prescribed Remeron that he never started until last night, states helped some. He had an appt yesterday with your PA, but states he failed to mention these above complaints. Pt and daughter states he went to a commercial IV fluid clinic here in [place] yesterday and had a bag of IV fluid with extra electrolytes added, states helped some but still doesn't feel well. Last 14 BP Last 14 Encounter BP Readings: Date: BP: 03/03/2024 120/72 03/02/2024 138/78 02/13/2024 129/68 02/10/2024 134/68 01/23/2024 138/81 01/16/2024 118/62 01/05/2024 136/82 10/31/2023 130/62 10/03/2023 132/58 04/02/2023 121/78 12/26/2022 122/80 09/26/2022 124/68 04/29/2022 114/67 03/28/2022 142/70 [facility]09-[facility] Telephone encounter Note* Telephone Encounter - Elizabeth Marsh LPN - 03/03/2024 9:21 AM EDT Called and spoke with daughter Caren. Then have advance directives in place. He is not ready for DNRat this time. They will contact the office with any more questions/concerns. [facility]09-[facility] Miscellaneous Notes* Telephone Encounter - Elizabeth Marsh LPN - 03/03/2024 9:21 AM EDT Called and spoke with daughter Caren. Then have advance directives in place. He is not ready for DNRat this time. They will contact the office with any more questions/concerns. documented in this encounterMiami [facility] Hospital09-11-2024 Instructions* Patient Instructions* Niecy Washington APRN.GEMA - 03/03/2024 8:15 AM EDT Images from the original note were not included. [facility] PATIENT PREOPERATIVE INSTRUCTIONS No ref. provider found has scheduled you for your procedure at this surgery center: [facility] [place] Scheduling Office: [phone] --[address] [place] [address]. Please read below carefully for your personalized instructions. Dietary Restrictions: - No solid food after midnight. - You may have 12 ounces of clear liquids (water, clear juices such as apple juice or gatorade, carbonated beverages, clear tea, black coffee, jello) until 2 hours before scheduled arrival at facility. Medications: Unless instructed differently below, stay on all of your medications until your surgery. If you start any new medications after today's visit, please contact your surgeon. Pre-Surgery Med Instructions Medication Instructions mirtazapine (REMERON) 7.5 mg tablet Do not take the day of surgery cloNIDine HCl (CATAPRES) 0.1 mg tablet Take the day of surgery with a small sip of water amLODIPine (NORVASC) 10 mg tablet Take the day of surgery with a small sip of water metFORMIN ER (GLUCOPHAGE XR) 500 mg 24 hr tablet Do not take the day of surgery rivaroxaban (XARELTO) 20 mg tablet Stop 3 days before surgery furosemide (LASIX) 20 mg tablet Do not take the day of surgery atorvastatin (LIPITOR) 20 mg tablet Take the day of surgery with a small sip of water lisinopril (ZESTRIL) 40 mg tablet Do not take the day of surgery allopurinol (ZYLOPRIM) 100 mg tablet Do not take the day of surgery carvedilol (COREG) 3.125 mg tablet Take the day of surgery with a small sip of water Cholecalciferol, Vitamin D3, 2,000 unit cap Stop 7 days before surgery If you take any medications for erectile dysfunction-Cialis (Tadalafil), Levitra, Staxyn (Vardenafil) Viagra (Sildenenafil please do not take these for 48 hours before surgery. If you start any new medications after today's visit, please contact the surgeon's office. Blood Thinning Medications: - Stop NSAIDS (Ibuprofen, Advil, Aleve, Motrin, Celebrex, Mobic, etc.) 7 days before surgery, as directed by your surgeon. - Stop Aspirin 7 days before surgery, as directed by your surgeon. - Stop Vitamin E, ALL multi-vitamins, herbals and dietary supplements 7 days before surgery. - You may take Tylenol (Acetaminophen) or any of your pain medications that do not contain aspirin or NSAIDS as needed. Important Reminders: - Candy, mints, and tobacco products are NOT permitted the morning of surgery. - Hearing aids, dentures and glasses may be worn the morning of surgery. - NO jewelry, body piercings, makeup, hairpins or contacts are to be worn the day of surgery. If you develop symptoms such as a fever, cold, or flu, or have other changes to your health within TWO DAYS of scheduled surgery or the morning of surgery, please contact the surgery center above. Personal Belongings: -Please have photo ID and insurance cards. -If you do not have a copy of advance directives on file with us, please bring a copy with you on the day of surgery. - Leave ALL valuables and money at home or with family members. For Outpatient Procedures: - YOU MUST HAVE A RESPONSIBLE COMMUNICATION SPECIALIST TAKE YOU HOME. A BREAD SUPERVISOR OR CAKE WRINGER CANNOT BE MADE A RESPONSIBLE COMMUNICATION SPECIALIST. - We recommend that a responsible person stays with you overnight to take care of you. - You cannot stay in a hotel alone after outpatient surgery. You will not be permitted to have yoursurgery, if you do not have someone to take care of you. Arrival Time for Surgery: - To obtain your arrival time for surgery, call your physician's office the day before your surgery. - If your surgery is scheduled for Friday, call the Friday before. Your surgeon s bomb technician will tell you what time to call the office. - If you have not reached the departmental bomb technician by 5 P.M., call [phone] after 5 P.M. the day before your surgery. Please be aware that emergency situations arise, which may delay or change your surgical time. If this happens, we will notify you as soon as possible and regret any inconvenience. If you already have an Advance Directive, please fax a copy to [phone] or email to for it to be added to your chart. If you do not have an Advance Directive, you can find the appropriate form and more information at [email or web address]. We recommend that youcomplete the Advance Directive form found on the website and bring it with you the day of your surgery. It can be witnessed and scanned into your chart that day. Niecy Washington APRN.CNP documented in this encounterMiami [facility] Hospital09-11-2024 History and physical note * Niecy Washington APRN.CNP - 03/03/2024 8:14 AM EDT Images from the original note were not included. [facility] HISTORY AND PHYSICAL EXAMINATION SERVICE DATE: 03/03/2024 SERVICE TIME: 6:41 AM PRIMARY CARE PHYSICIAN: Enrrique Carmona MD Assessment Patient has the following medical conditions which may affect brice-operative course: Essential hypertension Assessment: on rx Last 14 BP Last 14 Encounter BP Readings: Date: BP: 03/03/2024 120/72 03/02/2024 138/78 02/13/2024 129/68 02/10/2024 134/68 01/23/2024 138/81 01/16/2024 118/62 01/05/2024 136/82 10/31/2023 130/62 10/03/2023 132/58 04/02/2023 121/78 12/26/2022 122/80 09/26/2022 124/68 04/29/2022 114/67 03/28/2022 142/70 Mixed hyperlipidemia Assessment: c/w statin Paroxysmal atrial fibrillation (HCC) Assessment: chronic, follows [facility], received clearance with AC instructions. Daily Xarelto Dizziness Assessment: past intermittently, carotid US 2021, powderer aware. Pt states has had significantweight lost with 2/2 HPI and recent of his . Likely contributing. Pt to see PCP if meds needs adjusted. 03/04/24 Dr. Carmona ASSESSMENT/PLAN: 1. Lightheaded - ICD9: 780.4, ICD10: R42 (primary diagnosis) - seeing cardiology at 1 pm today. Defer to them. As long as they feel we are ok, still ok for surgery. Monitor intake and sugars while occurring. 2. 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) - ICD9: 255.8, ICD10: E27.8 - needs surgery. 3. Type 2 diabetes mellitus without complication, without long-term current use of insulin (HCC) - ICD9: Has been stable. 4. Weight loss - ICD9: 783.21, ICD10: R63.4 - likely related to his stress caring for his and then her passing coupled with the adrenal mass Remeron and surgery, likely will help. 5. Grief reaction - ICD9: 309.0, ICD10: F43.21 -as above 6. Essential hypertension - ICD9: 401.9, ICD10: I10 -getting rechecked by surgery today. Enrrique Carmona MD Bilateral carotid artery stenosis Assessment: checked by cardiology 06/13, no surgical intervention, medically managed HYPERTROPHY PROSTATE W/O OBST Assessment: controlled on rx Chronic depression Assessment: worsening 2/2 passing. Starting to take Remeron now as prescribed. Denies SI. History of skin cancer Assessment: SCC s/p excision Diabetes mellitus type 2, uncomplicated (HCC) Assessment: controlled on oral agent Hemoglobin A1C (%) Date Value 03/03/2024 6.7 03/26/2021 6.9 Tuttle Activity Status Index: METS: Climb a flight of stairs or walk up a hill (5.50 METs) DASI Score: 5.5 Patient denies any chest pain or undue shortness of breath with the above physical activity. Clinical Frailty Scale: 3. Well, with treated comorbid disease STOP-Bang Score: Has or is being treated for high blood pressure Patient over 50 years old Male patient Denies snoring loudly Denies feeling tired, fatigued, or sleepy during the daytime Has not been observed to stop breathing or choking/gasping during sleep BMI less than or equal to 35 kg/m^2 Does not have a large neck STOP-Bang Score: 3 Malnutrition Screening Tool: Recent weight loss without trying: No Eating poorly due to decreased appetite: No Weight Loss Score: 0 Appetite Score: 0 MST Score: 0 [id number] Score: Age: >=75 Sex: male CHF history: No Hypertension history: Yes Stroke/TIA/thromboembolism history: No Vascular disease history: No Diabetes history: Yes [id number] Score: 4 ARISCAT Score: Age: >80 Preoperative SpO2: >=96% Respiratory infection in the last month: No Preoperative anemia: No Surgical incision: peripheral Duration of surgery: >3 hrs Emergency procedure: No ARISCAT Score: 39 ANESTHESIA FINDINGS: Intubation History: No history of difficult intubation Significant Anesthesia Considerations: none Airway History: No history of difficult airway I - PHYSICAL EVALUATION AIRWAY Patient intubated: No. Tracheostomy tube not present Mallampati: II. TM distance: >3 FB. Neck ROM: full ROM without neurological symptoms. Mouth opening: adequate. Short neck: no. Thick neck: no Abel present: no Lip Bite Test: I Microretrognathia/Micronagthia/Recessed Chin: No DENTAL Dental findings: teeth intact. II - ANESTHESIA PLAN Anesthetic Plan: other Beta Brandon Monitoring Plan Post Procedure Analgesic Plan Informed Consent Anesthetic risks, benefits, alternatives, personnel and consent discussed: yes. Patient / Responsible Alliance Party agrees to proceed: yes Prepared for Surgery: optimally prepared for surgery. Labs-reviewed, okay to proceed-JL CONSULTS: Patient does not require consults for optimization at this time Planned Anesthetic: other anesthesia choice The Following Tests/Procedures Have Been Initiated: Orders Placed This Encounter >HGB A1c (Today or soon) Standing Status: Future Number of Occurrences: 1 Standing Expiration Date: 06/02/2024 >CBC + AUTO DIFF Standing Status: Future Number of Occurrences: 1 Standing Expiration Date: 06/02/2024 >CMP Standing Status: Future Number of Occurrences: 1 Standing Expiration Date: 06/02/2024 Urine Culture - LAB COLLECT Standing Status: Future Number of Occurrences: 1 Standing Expiration Date: 06/02/2024 REASON FOR VISIT: April Quesada is a 83 year old male who is scheduled for Procedure(s): ADRENALECTOMY (Left) at the request of @REFPROV2@ Marcel Roberts MD for consultation. My final recommendation will be communicated back to the requesting physician by way of shared medical record or letter. Subjective The patient has the following: COVID-19 Immunization Status Overdue - Covid-19 Vaccine () Overdue since 02/22/2024 04/02/2023 Postponed until 04/02/2024 by Enrrique Carmona MD (Declined at this time) 09/26/2022 Postponed until 09/27/2023 by Enrrique Carmona MD (Declined at this time) 09/14/2020 Imm Admin: COVID-19 original vaccine, age 12+ yr, monovalent ([employer] - PURPLE [employer]) Only the first 3 history entries have been loaded, but more history exists. CHIEF COMPLAINT: Pre-op exam HPI: April Quesada is a 83 year old seen for PAC due to scheduled above surgery because of an adrenal mass. 02/10/24, Marcel Lewis MD HPI: April Quesada was evaluated today for a consultation regarding the following condition(s): Adrenal mass (hcc) (primary encounter diagnosis) Left upper quadrant abdominal mass Weight loss Rectal bleeding. New or established diagnosis: New; Mode of detection: Physical exam Associated symptoms: Abdominal fullness; early satiety Family history of endocrine tumors: No History of previous thyroid biopsy or any cervical operation: No Pertinent medications (blood thinners, calcium, biotin, diuretics, lithium): YES; XARELTO REVIEW OF SYSTEMS: General: Positive for: weight loss >10% of BW in last 6 months. Neurological: No history of TIA's, stroke, ROAD CLEANER tumor, impaired sensorium, hemiplegia, paraplegia orquadraplegia. No neurological symptoms or problems. Respiratory: No history of current cough or dyspnea, or pneumonia in the past 6 weeks. No history of respiratory/pulmonary symptoms or problems. Cardiovascular: +dizziness, interittently x3 mos Positive for: anticoagulation therapy (Xarelto), atrial fibrillation, hyperlipidemia and hypertension Negative for: abdominal aortic aneurysm, AICD/PPM, angina, arrhythmia, CAD, chest pain, CHF, congenital heart defect, DVT/PE, recent [place], murmur/valvular heart disease, PVD, open heart surgery and valve surgery. GI: See HPI. Positive for: ETOH >2 drinks/day Negative for: abdominal pain, dysphagia, GERD, hepatitis, irritable bowel syndrome, inflammatory bowel disease, liver disease, nausea, pancreatitis and vomiting. : Positive for: BPH (no tx), hesitancy and nephrolithiasis (remote hx). Negative for: renal failure and urinary tract infection. Endocrine: See HPI. Positive for: diabetes mellitus. Patient's diabetes mellitus is controlled by oral agents. Negative for: hypothyroidism. Hematology: Positive for: bruises/bleeds easily and chronic anti-coagulation/platelet meds. Patient is on anti-coagulation/platelet medication(s): DOAC. Negative for: anemia and transfusion of at least 4 units within 72 hours prior to surgery. Oncology: Skin cancer s/p excision, following [facility] Psych: +insomnia Positive for: anxiety and depression. Musculoskeletal: Hx gout. Negative for joint pain or swelling, back pain or muscle pain. Skin: Negative for lesions, rash and itching. PAST MEDICAL HISTORY Diagnosis Date Anxiety state, unspecified Benign neoplasm of colon Carotid stenosis Depressive disorder, not elsewhere classified Diverticulosis of colon (without mention of hemorrhage) DM (diabetes mellitus) (HCC) Gout Hearing loss wears hearing aids Hypertrophy of prostate without urinary obstruction and other lower urinary tract symptoms (LUTS) Impotence of organic origin Obesity, unspecified Other and unspecified hyperlipidemia Personal history of colonic polyps Skin cancer, basal cell [facility] [place] [facility] Unspecified essential hypertension PAST SURGICAL HISTORY Procedure Laterality Date CARDIAC CATH 01/16/2017 CARDIOVERSION 2017 COLONOSCOPY FLX DX W/COLLJ SPEC WHEN PFRMD 03/03/2014 Colonoscopy COLONOSCOPY FLX DX W/COLLJ SPEC WHEN PFRMD 05/31/2019 Colonoscopy COLSC FLX W/RMVL OF TUMOR POLYP LESION SNARE TQ 05/27/07 COLSC FLX W/RMVL OF TUMOR POLYP LESION SNARE TQ 08/09/10 PAST SURGICAL HISTORY OF 1997 arthroscopic lt knee surg PAST SURGICAL HISTORY OF 1999 Rt foot great toe fusion TONSILLECTOMY & ADENOIDECTOMY FAMILY HISTORY Problem Relation Age of Onset Cancer Father lymphoma GI Mother Coronary Artery Disease Brother Ischemic Heart Disease Mother Social History Tobacco Use Smoking status: Former Types: Cigarettes Smokeless tobacco: Never Tobacco comments: Quit 1975 1-2 cig daily on the weekends Vaping Use Vaping status: Never Used Substance Use Topics Alcohol use: Yes Comment: rarely Drug use: No Prior to Admission medications as of 03/03/24 0955 Medication Sig Last Dose Taking mirtazapine (REMERON) 7.5 mg tablet Take 1 tablet by mouth daily at bedtime. Taking Yes cloNIDine HCl (CATAPRES) 0.1 mg tablet Take 1 tablet by mouth once daily. Taking Yes amLODIPine (NORVASC) 10 mg tablet Take 1 tablet by mouth once daily. Taking Yes metFORMIN ER (GLUCOPHAGE XR) 500 mg 24 hr tablet Take 1 tablet by mouth daily with breakfast. Taking Yes rivaroxaban (XARELTO) 20 mg tablet Take 1 tablet by mouth daily with dinner. Taking Yes furosemide (LASIX) 20 mg tablet Take 1 tablet by mouth once daily. Taking Yes atorvastatin (LIPITOR) 20 mg tablet Take 1 tablet by mouth daily at bedtime. For cholesterol. Taking Yes lisinopril (ZESTRIL) 40 mg tablet Take 1 tablet by mouth once daily. Taking Yes allopurinol (ZYLOPRIM) 100 mg tablet Take 1 tablet by mouth once daily. Taking Yes carvedilol (COREG) 3.125 mg tablet Take 3.125 mg by mouth twice daily with meals. Taking Yes Cholecalciferol, Vitamin D3, 2,000 unit cap Take 1 tablet by mouth once daily. Taking Yes No medication comments found. ALLERGIES Allergen Reactions Cephalosporins Rash Doxycycline Rash photosensitivity dermatitis Objective PHYSICAL EXAM: General: alert and oriented (x3) and healthy appearance. Pertinent negatives noted - not distressed. Skin: normal color, no rash or lesions. HEENT: EOM intact and pupils equal round. Pertinent negatives noted - no carotid bruit. Cardiovascular: Pulse characterized as irregular. Respiratory: normal breath sounds, no wheezes or crackles. No chest wall deformity or tenderness. Abdomen: soft. Pertinent negatives noted - not tender. Extremities: no deformity, no edema or tenderness, no joint swelling or clubbing. Neurological: normal cognition and motor skills. Gait normal. No weakness or sensory deficit. PAIN ASSESSMENT: VITALS: BP 120/72 Pulse 78 Temp (Src) 97 (Temporal) Resp 16 Ht 5' 8" (1.73m) Wt 189 lb (85.7kg) SpO2 97% BMI 28.74 kg/(m^2). Diagnostic tests reviewed for today's visit: Lab Value Units Date High Low HB 16.4 g/dL 03/03/2024 17.0 13.0 HCT 48.1 % 03/03/2024 51.0 39.0 WBC 8.84 k/uL 03/03/2024 11.00 3.70 PLT 214 k/uL 03/03/2024 400 150 NA 137 mmol/L 03/03/2024 144 136 K 4.6 mmol/L 03/03/2024 5.1 3.7 GLUC 162 mg/dL 03/03/2024 99 74 BUN 19 mg/dL 03/03/2024 24 9 CREAT 0.90 mg/dL 03/03/2024 1.22 0.73 PTSEC No results within date range. INR No results within date range. APTT No results within date range. ALT 11 U/L 03/03/2024 54 10 AST 11 U/L 03/03/2024 40 14 TBILI 0.9 mg/dL 03/03/2024 1.3 0.2 TSH 0.862 mIU/L 01/06/2024 4.200 0.270 Lab Value Units Date High Low HCGQT No results within date range. UHCG No results within date range. HCG, BODY* No results within date range. Lab Value Units Date High Low ABORHD No results within date range. ABSCREEN No results within date range. Hemoglobin A1C (%) Date Value 03/03/2024 6.7 10/03/2023 6.9 04/03/2023 6.6 12/17/2022 7.0 09/26/2022 7.7 03/26/2021 6.9 09/22/2020 7.1 04/07/2019 6.4 10/01/2018 6.6 04/02/2018 6.4 Recent Results (from the past 8760 hour(s)) ECG COMPLETE Collection Time: 02/13/24 6:11 PM Result Value Ventricular Rate 87 QRS Duration 106 QT Interval 362 QTC Calculation (Bazett) 435 Calculated R Holt -85 Calculated T Holt 91 Impression ATRIAL FIBRILLATION LEFT AXIS DEVIATION INFERIOR MYOCARDIAL INFARCTION , AGE UNDETERMINED ANTEROLATERAL INFARCTION , AGE UNDETERMINED ABNORMAL ECG No results found for this or any previous visit (from the past 41716 hour(s)). Instructions Given to Patient: Instructions located in the after visit summary. Patient given verbal and written preop instructions and voices comprehension and compliance. SIGNATURE: Niecy Washington APRN.CNP PATIENT NAME: April Quesada DATE: March 03, 2024 TIME: 8:14 AM PAGER/CONTACT #: [email or web address] History and physical note* Niecy Washington APRN.CNP - 03/03/2024 8:14 AM EDT Images from the original note were not included. [facility] HISTORY AND PHYSICAL EXAMINATION SERVICE DATE: 03/03/2024 SERVICE TIME: 6:41 AM PRIMARY CARE PHYSICIAN: Enrrique Carmona MD Assessment Patient has the following medical conditions which may affect brice-operative course: Essential hypertension Assessment: on rx Last 14 BP Last 14 Encounter BP Readings: Date: BP: 03/03/2024 120/72 03/02/2024 138/78 02/13/2024 129/68 02/10/2024 134/68 01/23/2024 138/81 01/16/2024 118/62 01/05/2024 136/82 10/31/2023 130/62 10/03/2023 132/58 04/02/2023 121/78 12/26/2022 122/80 09/26/2022 124/68 04/29/2022 114/67 03/28/2022 142/70 Mixed hyperlipidemia Assessment: c/w statin Paroxysmal atrial fibrillation (HCC) Assessment: chronic, follows [facility], received clearance with AC instructions. Daily Xarelto Dizziness Assessment: past intermittently, carotid US 2021, powderer aware. Pt states has had significantweight lost with 2/2 HPI and recent of his . Likely contributing. Pt to see PCP if meds needs adjusted. 03/04/24 Dr. Carmona ASSESSMENT/PLAN: 1. Lightheaded - ICD9: 780.4, ICD10: R42 (primary diagnosis) - seeing cardiology at 1 pm today. Defer to them. As long as they feel we are ok, still ok for surgery. Monitor intake and sugars while occurring. 2. 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) - ICD9: 255.8, ICD10: E27.8 - needs surgery. 3. Type 2 diabetes mellitus without complication, without long-term current use of insulin (HCC) - ICD9: Has been stable. 4. Weight loss - ICD9: 783.21, ICD10: R63.4 - likely related to his stress caring for his and then her passing coupled with the adrenal mass Remeron and surgery, likely will help. 5. Grief reaction - ICD9: 309.0, ICD10: F43.21 -as above 6. Essential hypertension - ICD9: 401.9, ICD10: I10 -getting rechecked by surgery today. Enrrique Carmona MD Bilateral carotid artery stenosis Assessment: checked by cardiology 06/13, no surgical intervention, medically managed HYPERTROPHY PROSTATE W/O OBST Assessment: controlled on rx Chronic depression Assessment: worsening 2/2 passing. Starting to take Remeron now as prescribed. Denies SI. History of skin cancer Assessment: SCC s/p excision Diabetes mellitus type 2, uncomplicated (HCC) Assessment: controlled on oral agent Hemoglobin A1C (%) Date Value 03/03/2024 6.7 03/26/2021 6.9 Tuttle Activity Status Index: METS: Climb a flight of stairs or walk up a hill (5.50 METs) DASI Score: 5.5 Patient denies any chest pain or undue shortness of breath with the above physical activity. Clinical Frailty Scale: 3. Well, with treated comorbid disease STOP-Bang Score: Has or is being treated for high blood pressure Patient over 50 years old Male patient Denies snoring loudly Denies feeling tired, fatigued, or sleepy during the daytime Has not been observed to stop breathing or choking/gasping during sleep BMI less than or equal to 35 kg/m^2 Does not have a large neck STOP-Bang Score: 3 Malnutrition Screening Tool: Recent weight loss without trying: No Eating poorly due to decreased appetite: No Weight Loss Score: 0 Appetite Score: 0 MST Score: 0 [id number] Score: Age: >=75 Sex: male CHF history: No Hypertension history: Yes Stroke/TIA/thromboembolism history: No Vascular disease history: No Diabetes history: Yes [id number] Score: 4 ARISCAT Score: Age: >80 Preoperative SpO2: >=96% Respiratory infection in the last month: No Preoperative anemia: No Surgical incision: peripheral Duration of surgery: >3 hrs Emergency procedure: No ARISCAT Score: 39 ANESTHESIA FINDINGS: Intubation History: No history of difficult intubation Significant Anesthesia Considerations: none Airway History: No history of difficult airway I - PHYSICAL EVALUATION AIRWAY Patient intubated: No. Tracheostomy tube not present Mallampati: II. TM distance: >3 FB. Neck ROM: full ROM without neurological symptoms. Mouth opening: adequate. Short neck: no. Thick neck: no Abel present: no Lip Bite Test: I Microretrognathia/Micronagthia/Recessed Chin: No DENTAL Dental findings: teeth intact. II - ANESTHESIA PLAN Anesthetic Plan: other Beta Brandon Monitoring Plan Post Procedure Analgesic Plan Informed Consent Anesthetic risks, benefits, alternatives, personnel and consent discussed: yes. Patient / Responsible Alliance Party agrees to proceed: yes Prepared for Surgery: optimally prepared for surgery. Labs-reviewed, okay to proceed-JL CONSULTS: Patient does not require consults for optimization at this time Planned Anesthetic: other anesthesia choice The Following Tests/Procedures Have Been Initiated: Orders Placed This Encounter >HGB A1c (Today or soon) Standing Status: Future Number of Occurrences: 1 Standing Expiration Date: 06/02/2024 >CBC + AUTO DIFF Standing Status: Future Number of Occurrences: 1 Standing Expiration Date: 06/02/2024 >CMP Standing Status: Future Number of Occurrences: 1 Standing Expiration Date: 06/02/2024 Urine Culture - LAB COLLECT Standing Status: Future Number of Occurrences: 1 Standing Expiration Date: 06/02/2024 REASON FOR VISIT: April Quesada is a 83 year old male who is scheduled for Procedure(s): ADRENALECTOMY (Left) at the request of . @[email or web address]@ Marcel Roberts MD for consultation. My final recommendation will be communicated back to the requesting physician by way of shared medical record or letter. Subjective The patient has the following: COVID-19 Immunization Status Overdue - Covid-19 Vaccine () Overdue since 02/22/2024 04/02/2023 Postponed until 04/02/2024 by Enrrique Carmona MD (Declined at this time) 09/26/2022 Postponed until 09/27/2023 by Enrrique Carmona MD (Declined at this time) 09/14/2020 Imm Admin: COVID-19 original vaccine, age 12+ yr, monovalent ([employer] - [employer]) Only the first 3 history entries have been loaded, but more history exists. CHIEF COMPLAINT: Pre-op exam HPI: April Quesada is a 83 year old seen for PAC due to scheduled above surgery because of an adrenal mass. 02/10/24, Marcel Lewis MD HPI: April Quesada was evaluated today for a consultation regarding the following condition(s): Adrenal mass (hcc) (primary encounter diagnosis) Left upper quadrant abdominal mass Weight loss Rectal bleeding. New or established diagnosis: New; Mode of detection: Physical exam Associated symptoms: Abdominal fullness; early satiety Family history of endocrine tumors: No History of previous thyroid biopsy or any cervical operation: No Pertinent medications (blood thinners, calcium, biotin, diuretics, lithium): YES; XARELTO REVIEW OF SYSTEMS: General: Positive for: weight loss >10% of BW in last 6 months. Neurological: No history of TIA's, stroke, ROAD CLEANER tumor, impaired sensorium, hemiplegia, paraplegia orquadraplegia. No neurological symptoms or problems. Respiratory: No history of current cough or dyspnea, or pneumonia in the past 6 weeks. No history of respiratory/pulmonary symptoms or problems. Cardiovascular: +dizziness, interittently x3 mos Positive for: anticoagulation therapy (Xarelto), atrial fibrillation, hyperlipidemia and hypertension Negative for: abdominal aortic aneurysm, AICD/PPM, angina, arrhythmia, CAD, chest pain, CHF, congenital heart defect, DVT/PE, recent [place], murmur/valvular heart disease, PVD, open heart surgery and valve surgery. GI: See HPI. Positive for: ETOH >2 drinks/day Negative for: abdominal pain, dysphagia, GERD, hepatitis, irritable bowel syndrome, inflammatory bowel disease, liver disease, nausea, pancreatitis and vomiting. : Positive for: BPH (no tx), hesitancy and nephrolithiasis (remote hx). Negative for: renal failure and urinary tract infection. Endocrine: See HPI. Positive for: diabetes mellitus. Patient's diabetes mellitus is controlled by oral agents. Negative for: hypothyroidism. Hematology: Positive for: bruises/bleeds easily and chronic anti-coagulation/platelet meds. Patient is on anti-coagulation/platelet medication(s): DOAC. Negative for: anemia and transfusion of at least 4 units within 72 hours prior to surgery. Oncology: Skin cancer s/p excision, following [facility] Psych: +insomnia Positive for: anxiety and depression. Musculoskeletal: Hx gout. Negative for joint pain or swelling, back pain or muscle pain. Skin: Negative for lesions, rash and itching. PAST MEDICAL HISTORY Diagnosis Date Anxiety state, unspecified Benign neoplasm of colon Carotid stenosis Depressive disorder, not elsewhere classified Diverticulosis of colon (without mention of hemorrhage) DM (diabetes mellitus) (HCC) Gout Hearing loss wears hearing aids Hypertrophy of prostate without urinary obstruction and other lower urinary tract symptoms (LUTS) Impotence of organic origin Obesity, unspecified Other and unspecified hyperlipidemia Personal history of colonic polyps Skin cancer, basal cell [facility] [place] [employer] Unspecified essential hypertension PAST SURGICAL HISTORY Procedure Laterality Date CARDIAC CATH 01/16/2017 CARDIOVERSION 2017 COLONOSCOPY FLX DX W/COLLJ SPEC WHEN PFRMD 03/03/2014 Colonoscopy COLONOSCOPY FLX DX W/COLLJ SPEC WHEN PFRMD 05/31/2019 Colonoscopy COLSC FLX W/RMVL OF TUMOR POLYP LESION SNARE TQ 05/27/07 COLSC FLX W/RMVL OF TUMOR POLYP LESION SNARE TQ 08/09/10 PAST SURGICAL HISTORY OF 1997 arthroscopic lt knee surg PAST SURGICAL HISTORY OF 1999 Rt foot great toe fusion TONSILLECTOMY & ADENOIDECTOMY <AGE 11 FAMILY HISTORY Problem Relation Age of Onset Cancer Father lymphoma GI Mother Coronary Artery Disease Brother Ischemic Heart Disease Mother Social History Tobacco Use Smoking status: Former Types: Cigarettes Smokeless tobacco: Never Tobacco comments: Quit 1975 1-2 cig daily on the weekends Vaping Use Vaping status: Never Used Substance Use Topics Alcohol use: Yes Comment: rarely Drug use: No Prior to Admission medications as of 03/03/24 0955 Medication Sig Last Dose Taking mirtazapine (REMERON) 7.5 mg tablet Take 1 tablet by mouth daily at bedtime. Taking Yes cloNIDine HCl (CATAPRES) 0.1 mg tablet Take 1 tablet by mouth once daily. Taking Yes amLODIPine (NORVASC) 10 mg tablet Take 1 tablet by mouth once daily. Taking Yes metFORMIN ER (GLUCOPHAGE XR) 500 mg 24 hr tablet Take 1 tablet by mouth daily with breakfast. Taking Yes rivaroxaban (XARELTO) 20 mg tablet Take 1 tablet by mouth daily with dinner. Taking Yes furosemide (LASIX) 20 mg tablet Take 1 tablet by mouth once daily. Taking Yes atorvastatin (LIPITOR) 20 mg tablet Take 1 tablet by mouth daily at bedtime. For cholesterol. Taking Yes lisinopril (ZESTRIL) 40 mg tablet Take 1 tablet by mouth once daily. Taking Yes allopurinol (ZYLOPRIM) 100 mg tablet Take 1 tablet by mouth once daily. Taking Yes carvedilol (COREG) 3.125 mg tablet Take 3.125 mg by mouth twice daily with meals. Taking Yes Cholecalciferol, Vitamin D3, 2,000 unit cap Take 1 tablet by mouth once daily. Taking Yes No medication comments found. ALLERGIES Allergen Reactions Cephalosporins Rash Doxycycline Rash photosensitivity dermatitis Objective PHYSICAL EXAM: General: alert and oriented (x3) and healthy appearance. Pertinent negatives noted - not distressed. Skin: normal color, no rash or lesions. HEENT: EOM intact and pupils equal round. Pertinent negatives noted - no carotid bruit. Cardiovascular: Pulse characterized as irregular. Respiratory: normal breath sounds, no wheezes or crackles. No chest wall deformity or tenderness. Abdomen: soft. Pertinent negatives noted - not tender. Extremities: no deformity, no edema or tenderness, no joint swelling or clubbing. Neurological: normal cognition and motor skills. Gait normal. No weakness or sensory deficit. PAIN ASSESSMENT: VITALS: BP 120/72 Pulse 78 Temp (Src) 97 (Temporal) Resp 16 Ht 5' 8" (1.73m) Wt 189 lb (85.7kg) SpO2 97% BMI 28.74 kg/(m^2). Diagnostic tests reviewed for today's visit: Lab Value Units Date High Low HB 16.4 g/dL 03/03/2024 17.0 13.0 HCT 48.1 % 03/03/2024 51.0 39.0 WBC 8.84 k/uL 03/03/2024 11.00 3.70 PLT 214 k/uL 03/03/2024 400 150 NA 137 mmol/L 03/03/2024 144 136 K 4.6 mmol/L 03/03/2024 5.1 3.7 GLUC 162 mg/dL 03/03/2024 99 74 BUN 19 mg/dL 03/03/2024 24 9 CREAT 0.90 mg/dL 03/03/2024 1.22 0.73 PTSEC No results within date range. INR No results within date range. APTT No results within date range. ALT 11 U/L 03/03/2024 54 10 AST 11 U/L 03/03/2024 40 14 TBILI 0.9 mg/dL 03/03/2024 1.3 0.2 TSH 0.862 mIU/L 01/06/2024 4.200 0.270 Lab Value Units Date High Low HCGQT No results within date range. UHCG No results within date range. HCG, BODY* No results within date range. Lab Value Units Date High Low ABORHD No results within date range. ABSCREEN No results within date range. Hemoglobin A1C (%) Date Value 03/03/2024 6.7 10/03/2023 6.9 04/03/2023 6.6 12/17/2022 7.0 09/26/2022 7.7 03/26/2021 6.9 09/22/2020 7.1 04/07/2019 6.4 10/01/2018 6.6 04/02/2018 6.4 Recent Results (from the past 8760 hour(s)) ECG COMPLETE Collection Time: 02/13/24 6:11 PM Result Value Ventricular Rate 87 QRS Duration 106 QT Interval 362 QTC Calculation (Bazett) 435 Calculated R Holt -85 Calculated T Holt 91 Impression ATRIAL FIBRILLATION LEFT AXIS DEVIATION INFERIOR MYOCARDIAL INFARCTION , AGE UNDETERMINED ANTEROLATERAL INFARCTION , AGE UNDETERMINED ABNORMAL ECG No results found for this or any previous visit (from the past 95830 hour(s)). Instructions Given to Patient: Instructions located in the after visit summary. Patient given verbal and written preop instructions and voices comprehension and compliance. SIGNATURE: Niecy Washington APRN.CNP PATIENT NAME: April Quesada DATE: March 03, 2024 TIME: 8:14 AM PAGER/CONTACT #: documented [facility] encounter[facility] Instructions* Patient Instructions* Caren Ortega MA - 03/02/2024 3:40 PM EDT 1) Check for mirtazapine 7.5 mg at bedtime- for sleep and mood 2) Follow up 05/04/24 documented in this encounterMi[facility]24 [facility] History of Present illness Narrative* Vianney Sahu APRN.CNP - 03/02/2024 3:26 PM EDT This is a 83 year old male who presents today with: Patient presents with: Follow Up HISTORY OF PRESENT ILLNESS: April Quesada is a 83 year old male. Patient presents with: Follow Up Does not think that he is taking mirtazapine. Thinks he must have misplaced it. Appetite is poor. Can't tolerate eating much. Swelling is better Not sleeping. Bowels are slow. Urinating ok. No pain. No fever or chills. Anxious. BSS in the morning 130, after eating up to 200 PAST MEDICAL HISTORY: PAST MEDICAL HISTORY No date: Anxiety state, unspecified No date: Benign neoplasm of colon No date: Carotid stenosis No date: Depressive disorder, not elsewhere classified No date: Diverticulosis of colon (without mention of hemorrhage) No date: DM (diabetes mellitus) (HCC) No date: Gout No date: Hearing loss Comment: wears hearing aids No date: Hypertrophy of prostate without urinary obstruction and other lower urinary tract symptoms (LUTS) No date: Impotence of organic origin No date: Obesity, unspecified No date: Other and unspecified hyperlipidemia No date: Personal history of colonic polyps No date: Skin cancer, basal cell Comment: [facility] [place] No date: Unspecified essential hypertension PAST SURGICAL HISTORY 01/16/2017: CARDIAC CATH 2017: CARDIOVERSION 03/03/2014: COLONOSCOPY FLX DX W/COLLJ SPEC WHEN PFRMD Comment: Colonoscopy 05/31/2019: COLONOSCOPY FLX DX W/COLLJ SPEC WHEN PFRMD Comment: Colonoscopy 05/27/07: COLSC FLX W/RMVL OF TUMOR POLYP LESION SNARE TQ 08/09/10: COLSC FLX W/RMVL OF TUMOR POLYP LESION SNARE TQ 1997: PAST SURGICAL HISTORY OF Comment: arthroscopic lt knee surg 1999: PAST SURGICAL HISTORY OF Comment: Rt foot great toe fusion No date: TONSILLECTOMY & ADENOIDECTOMY <AGE 11 ALLERGIES Cephalosporins and Doxycycline MEDICATIONS Current Outpatient Medications Medication Sig mirtazapine (REMERON) 7.5 mg tablet Take 1 tablet by mouth daily at bedtime. cloNIDine HCl (CATAPRES) 0.1 mg tablet Take 1 tablet by mouth once daily. amLODIPine (NORVASC) 10 mg tablet Take 1 tablet by mouth once daily. metFORMIN ER (GLUCOPHAGE XR) 500 mg 24 hr tablet Take 1 tablet by mouth daily with breakfast. rivaroxaban (XARELTO) 20 mg tablet Take 1 tablet by mouth daily with dinner. furosemide (LASIX) 20 mg tablet Take 1 tablet by mouth once daily. atorvastatin (LIPITOR) 20 mg tablet Take 1 tablet by mouth daily at bedtime. For cholesterol. lisinopril (ZESTRIL) 40 mg tablet Take 1 tablet by mouth once daily. allopurinol (ZYLOPRIM) 100 mg tablet Take 1 tablet by mouth once daily. carvedilol (COREG) 3.125 mg tablet Take 3.125 mg by mouth twice daily with meals. Cholecalciferol, Vitamin D3, 2,000 unit cap Take 1 tablet by mouth once daily. No current facility-administered medications for this visit. FAMILY HISTORY Problem Relation Age of Onset Cancer Father lymphoma GI Mother Coronary Artery Disease Brother Ischemic Heart Disease Mother Social History Tobacco Use Smoking status: Former Types: Cigarettes Smokeless tobacco: Never Tobacco comments: Quit 1975 1-2 cig daily on the weekends Substance Use Topics Alcohol use: Yes Comment: rarely Drug use: No EXAM: BP 152/78 Pulse 68 Resp 18 Wt 87.1 kg (192 lb) SpO2 96% BMI 29.17 kg/m PHYSICAL EXAM: Physical Exam Vitals reviewed. Constitutional: Appearance: Normal appearance. HENT: Head: Normocephalic. Cardiovascular: Rate and Rhythm: Normal rate and regular rhythm. Pulses: Normal pulses. Heart sounds: Normal heart sounds. Pulmonary: Effort: Pulmonary effort is normal. Breath sounds: Normal breath sounds. Abdominal: General: Bowel sounds are normal. There is distension. Tenderness: There is no abdominal tenderness. There is no guarding. Musculoskeletal: General: Normal range of motion. Skin: General: Skin is warm and dry. Neurological: Mental Status: He is alert and oriented to person, place, and time. Psychiatric: Behavior: Behavior normal. LABS: ASSESSMENT/PLAN: 1. 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) - ICD9: 255.8, ICD10: E27.8 (primary diagnosis) Having surgery Friday 2. Type 2 diabetes mellitus without complication, without long-term current use of insulin (HCC) - ICD9: 250.00, ICD10: E11.9 - Controlled - Continue current medications 3. Bilateral leg edema - ICD9: 782.3, ICD10: R60.0 Improved 4. Anxiety state - ICD9: 300.00, ICD10: F41.1 Misplaced mirtazapine- will look for it at home 5. Essential hypertension - ICD9: 401.9, ICD10: I10 - Controlled - Recommend home blood pressure monitoring, to bring results to next visit - Encouraged sodium restriction, DASH or Mediterranean diet - Recommend regular aerobic exercise Discussed treatment plan and patient voices understanding. Patient's questions answered appropriately. Medications and potential side effects were discussed and patient voices understanding. Return to the office as scheduled or as needed for worsening/no improvement. Vianney Sahu APRN.CANDLES POURER documented in this encounterMi[facility]09-10-2024 Telephone encounter Note * Telephone Encounter - Amelia Gonzalez - 03/02/2024 10:06 AM EDT Advised pt of cardiac clearance. Aware of Xarelto instructions. Last dose was taken yesterday,. 03/01. Pt denies questions or concerns. Amelia Gonzalez RN [facility]09-10-[facility] Miscellaneous Notes* Telephone Encounter - Amelia Gonzalez - 03/02/2024 10:06 AM EDT Advised pt of cardiac clearance. Aware of Xarelto instructions. Last dose was taken yesterday,. 03/01. Pt denies questions or concerns. Amelia Gonzalez RN documented in this encounterMi[facility]09-09-2024 Telephone encounter Note * Telephone Encounter - Shawna Sinclair - 03/01/2024 5:55 PM EDT Surgery Clearance (dated 03/01/2024); Echo (dated 12/26/2023) and EKG (dated 04/23/2023) indexed into pt's chart. [facility] Miscellaneous Notes* Telephone Encounter - Shawna Sinclair - 03/01/2024 5:55 PM EDT Surgery Clearance (dated 03/01/2024); Echo (dated 12/26/2023) and EKG (dated 04/23/2023) indexed into pt's chart. documented in this encounterMiami [facility] Hospital09-09-2024 Miscellaneous Notes* Telephone Encounter - Antoinette Andrew RN - 03/01/2024 10:00 AM EDT Called patient's daughter in response to [email or web address] message. Patient's daughter stated she has not received instructions for patient holding Xarelto in preparation for surgery on Monday 03/05. Patient is scheduled to see cardiology on 03/04 and PACC on Saturday 03/03. Message was sent to prescribing provider asking permission to hold Xarelto but deferred to cardiology. Daughter stated she will call cardiology to notify them of needing instructions. Fax sent to [facility] requesting instructions for holding Xarelto and needing cardiac clearance. JODEE Curry Endocrine Surgery documented in this encounterMi[facility]09-09-2024 Telephone encounter Note * Telephone Encounter - Antoinette Andrew RN - 03/01/2024 10:00 AM EDT Called patient's daughter in response to [email or web address] message. Patient's daughter stated she has not received instructions for patient holding Xarelto in preparation for surgery on Monday 03/05. Patient is scheduled to see cardiology on 03/04 and PACC on Saturday 03/03. Message was sent to prescribing provider asking permission to hold Xarelto but deferred to cardiology. Daughter stated she will call cardiology to notify them of needing instructions. Fax sent to [facility] requesting instructions for holding Xarelto and needing cardiac clearance. JODEE Curry Endocrine Surgery [facility] Work Phone: 1(436) 930-907309-09-2024 Telephone encounter Note* Telephone Encounter - Enrrique Carmona MD - 03/01/2024 9:54 AM EDT I have no idea, he would have to check surgery and or his powderer. [facility] Miscellaneous Notes* Telephone Encounter - Enrrique Carmona MD - 03/01/2024 9:54 AM EDT I have no idea, he would have to check surgery and or his powderer. * Telephone Encounter - Antoinette Andrew RN - 03/01/2024 9:40 AM EDT Stephen Carmona- This patient is scheduled for surgery this Friday, 03/05. Is he able to hold Xarelto inpreparation for surgery? documented in this encounterMi[facility]09-09-2024 Telephone encounter Note * Telephone Encounter - Antoinette Andrew RN - 03/01/2024 9:40 AM EDT Stephen Carmona- This patient is scheduled for surgery this Friday, 03/05. Is he able to hold Xarelto inpreparation for surgery? [facility] Work Phone: 1(146) 670-989008-26-2024 NoteChildren[facility]-26-20[facility] History of Present illness Narrative* Romana Bhandari RN - 02/16/2024 3:08 PM EDT Transition Care Management (TCM) Initial Outreach PCP Update / Actionable Items TCM INITIAL OUTREACH PCP Please assist with scheduling TCM Hospital Discharge Follow up. TCM Eligible until 02/28/24. Pt has appt scheduled for 03/02/24. Please reach out to pt if sooner appt for hospital discharge FU appt. Thank you N/A - No specialty updates needed Patient Source: In-Network Discharge Initial outreach: TCM discharge report Outreach Summary: Spoke with pt and daughter on speaker phone. Pt reports "doing ok" Still has SOB Pain in groin settled down. Taking Tylenol and percocet for pain Has not started taking Lavalette. 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 Had BM since discharge Admits to low fluid intake. Encouraged to increase fluids as tolerated if not on fluid restrictions. Adrenalectomy pending 9/13 Hopeful for cancellation or sooner appt Patient discharged from [facility] Discharge date: 02/14/24 Admitted for: bilateral feet swelling and worsening abdominal pain associated with SOB. Readmission Risk: 14 Value-Based Contract: Jorge MORALES Contact: Contact made with patient: Yes Hi, my name is Romana Bhandari RN and I am calling from the [facility] on behalf of your Primary Care Provider, Enrrique Carmona MD. I understand you were recently in the hospital, so I am calling to check in with you to ensure you are feeling well now that you are home. May I ask you a few questions related to your hospital stay and well-being? Yes Spoke to: Patient and Daughter, Caren Validation: Validated the person spoken to is actively involved in the patient's care. The patient was identified by Name and Date of . Symptoms: Are you feeling about the same, better or worse since leaving the hospital? Better Medications: Do you have any questions about taking your medications, including which medications you should be on, or do you need refills on your medications? No Medication Review: Partial mediation review completed, per patient preference Discharge Instructions: Your Discharge Instructions / After Visit Summary (AVS) are important in guiding you through the recovery process. Do you have any questions related to your discharge instructions? No Home Care: Were you discharged with home care? No Equipment: Do you have all the necessary equipment and supplies needed at your home? Yes Social: We would like to make sure you have what you need so that your basics needs are met - including your personal safety, food, housing and medications. Would you like to speak with a social work steam box operator to help give you support for any of these needs? No It can be normal to feel anxious or down during a time like this. Would you like to talk to a mental health professional about how you have been feeling? No Action Taken: No needs verbalized. No action required. Follow-Up Appointment: [Appointment / TCM Follow-up within 14 days] I would like to help you schedule a hospital follow-up virtual or telephone visit with your PCP. This is a great way for you to connect with your provider to ensure you have safely transitioned home.If you are agreeable, I will send your request to a bomb technician who will contact and assist you with that appointment. This will give you an opportunity to ask any questions or address any concerns youmay have with your PCP. Inform the patient that if they have any questions or concerns prior to that appointment, to call their PCP's office right away. Appointment Action: No action required; patient already has appointment scheduled. Education Patient and family educated on issues/questions related to reason for admission, transition of caretopics, and follow-up needed upon discharge. Targets addressed / completed during outreach: Contact patient within two (2) business days Prevent readmission for 30 days Outreach Outcome: Enrolled in TCM Continue TCM Outreach for remainder of 30 days Care Management partners utilized: N/A Romana Bhandari RN February 16, 2024 3:23 PM documented in this encounterMiami [facility]08-24-2024 NoteChildren[facility]08-23-2024 NoteChildren[facility]08-23-2024 Telephone encounter Note* Telephone Encounter - Vianney Sahu APRN.CNP - 02/13/2024 9:41 AM EDT Noted. Daughter also called surgeon and they will make recommendations regarding surgical intervention. [facility]08-23-[facility]24 Miscellaneous Notes* Telephone Encounter - Vianney Sahu APRN.CNP - 02/13/2024 9:41 AM EDT Noted. Daughter also called surgeon and they will make recommendations regarding surgical intervention. * Telephone Encounter - Irina Maria RN - 02/13/2024 9:11 AM EDT Called and spoke with patient's daughters Ashley and Craen. Daughters states that patient has beenhaving a lot of abdominal pain and pressure. Patient has been lightheaded with insomnia. Daughters report that patient's belly button used to be in but now it is out. Patient has had some shortness of breath. Brother is currently staying with patient. Called and spoke with patient. Patient states that he is feeling better. Patient is not in as much of pain as he was last night. Patient denies shortness of breath and trouble urinating. Advised patient that if he becomes short of breath, has issues urinating, or if symptoms get worse then he should go to ER to be evaluated. Patient voiced understanding. Daughters were also notified that if patient's symptoms get worse then patient needs to go to ER to be evaluated. Answer Assessment - Initial Assessment Questions 1. LOCATION: Lower Abdomen 2. RADIATION: Back 3. ONSET: Feel better this morning then he did last night 4. SUDDEN: Sudden 5. PATTERN Constant Pain 6. SEVERITY: Patient rates pain 6 out of 10; Patient states that is better today. 7. RECURRENT SYMPTOM: Patient has tumor 8. CAUSE: Tumor in abdomen 9. RELIEVING/AGGRAVATING FACTORS: Denies 10. OTHER SYMPTOMS: Patient does not think that he has shortness of breath; back pain; just uncomfortable in abdomen. Protocols used: Abdominal Pain - [id number] documented in this encounterMiami [facility] Hospital08-23-2024 Telephone encounter Note * Telephone Encounter - Irina Maria RN - 02/13/2024 9:11 AM EDT Called and spoke with patient's daughters Trae. Daughters states that patient has beenhaving a lot of abdominal pain and pressure. Patient has been lightheaded with insomnia. Daughters report that patient's belly button used to be in but now it is out. Patient has had some shortness of breath. Brother is currently staying with patient. Called and spoke with patient. Patient states that he is feeling better. Patient is not in as much of pain as he was last night. Patient denies shortness of breath and trouble urinating. Advised patient that if he becomes short of breath, has issues urinating, or if symptoms get worse then he should go to ER to be evaluated. Patient voiced understanding. Daughters were also notified that if patient's symptoms get worse then patient needs to go to ER to be evaluated. Answer Assessment - Initial Assessment Questions 1. LOCATION: Lower Abdomen 2. RADIATION: Back 3. ONSET: Feel better this morning then he did last night 4. SUDDEN: Sudden 5. PATTERN Constant Pain 6. SEVERITY: Patient rates pain 6 out of 10; Patient states that is better today. 7. RECURRENT SYMPTOM: Patient has tumor 8. CAUSE: Tumor in abdomen 9. RELIEVING/AGGRAVATING FACTORS: Denies 10. OTHER SYMPTOMS: Patient does not think that he has shortness of breath; back pain; just uncomfortable in abdomen. Protocols used: Abdominal Pain - [id number] [facility]08-[facility] Telephone encounter Note* Telephone Encounter - Caren Ortega MA - 02/13/2024 8:18 AM EDT Nurse triage appt made [facility]08-23-2024 Miscellaneous Notes* Telephone Encounter - Caren Ortega MA - 02/13/2024 8:18 AM EDT Nurse triage appt made documented in this encounterMiami [facility] Hospital08-21-2024 Telephone encounter Note * Telephone Encounter - Amelia Gonzalez - 02/11/2024 10:49 AM EDT Pt seen by PCP. Amelia Gonzalez RN [facility]08-21-2024 Miscellaneous Notes* Telephone Encounter - Amelia Gonzalez - 02/11/2024 10:49 AM EDT Pt seen by PCP. Amelia Gonzalez RN documented in this encounterMiami [facility] Hospital08-20-2024 Instructions* Patient Instructions* Vianney Sahu APRN.GEMA - 02/10/2024 4:47 PM EDT 1) Decrease ativan to 1/2 tablet at bedtime 2) Mirtazapine 7.5 mg at bedtime 3) Follow up in 1 month documented in this encounterMiami [facility] Hospital08-20-2024 [facility]Children[facility]08-20-20[facility] History of Present illness Narrative* Vianney Sahu APRN.CNP - 02/10/2024 4:15 PM EDT This is a 83 year old male who presents today with: Patient presents with: Edema: Bilateral leg swelling for the last 3-4 days HISTORY OF PRESENT ILLNESS: April Quesada is a 83 year old male. Patient presents with: Edema: Bilateral leg swelling for the last 3-4 days Just got herbal sleep aid that, TELLY, L theanine, with melatonin. Also takes mariajuana gummies. Can't sleep. Surviving on 2-4 hours of sleep. Talking lorazepam multiple times through the day. Picks at his food. Lost appetite. Doesn't feel like doing anything. Also, legs were swollen the other day. PAST MEDICAL HISTORY: PAST MEDICAL HISTORY No date: Anxiety state, unspecified No date: Benign neoplasm of colon No date: Carotid stenosis No date: Depressive disorder, not elsewhere classified No date: Diverticulosis of colon (without mention of hemorrhage) No date: DM (diabetes mellitus) (HCC) No date: Gout No date: Hearing loss Comment: wears hearing aids No date: Hypertrophy of prostate without urinary obstruction and other lower urinary tract symptoms (LUTS) No date: Impotence of organic origin No date: Obesity, unspecified No date: Other and unspecified hyperlipidemia No date: Personal history of colonic polyps No date: Skin cancer, basal cell Comment: [facility] [place] [employer] No date: Unspecified essential hypertension PAST SURGICAL HISTORY 01/16/2017: CARDIAC CATH 2017: CARDIOVERSION 03/03/2014: COLONOSCOPY FLX DX W/COLLJ SPEC WHEN PFRMD Comment: Colonoscopy 05/31/2019: COLONOSCOPY FLX DX W/COLLJ SPEC WHEN PFRMD Comment: Colonoscopy 05/27/07: COLSC FLX W/RMVL OF TUMOR POLYP LESION SNARE TQ 08/09/10: COLSC FLX W/RMVL OF TUMOR POLYP LESION SNARE TQ 1998: PAST SURGICAL HISTORY OF Comment: arthroscopic lt knee surg 2000: PAST SURGICAL HISTORY OF Comment: Rt foot great toe fusion No date: TONSILLECTOMY & ADENOIDECTOMY <AGE 11 ALLERGIES Cephalosporins and Doxycycline MEDICATIONS Current Outpatient Medications Medication Sig LORazepam (ATIVAN) 0.5 mg Take 1 tablet by mouth at bedtime as needed (for anxiety) for up to 10 days. cloNIDine HCl (CATAPRES) 0.1 mg tablet Take 1 tablet by mouth once daily. amLODIPine (NORVASC) 10 mg tablet Take 1 tablet by mouth once daily. LORazepam (ATIVAN) 0.5 mg Take 1 tablet by mouth at bedtime as needed for up to 90 days. metFORMIN ER (GLUCOPHAGE XR) 500 mg 24 hr tablet Take 1 tablet by mouth daily with breakfast. rivaroxaban (XARELTO) 20 mg tablet Take 1 tablet by mouth daily with dinner. furosemide (LASIX) 20 mg tablet Take 1 tablet by mouth once daily. atorvastatin (LIPITOR) 20 mg tablet Take 1 tablet by mouth daily at bedtime. For cholesterol. lisinopril (ZESTRIL) 40 mg tablet Take 1 tablet by mouth once daily. allopurinol (ZYLOPRIM) 100 mg tablet Take 1 tablet by mouth once daily. carvedilol (COREG) 3.125 mg tablet Take 3.125 mg by mouth twice daily with meals. aspirin, enteric coated (ASPIRIN, ENTERIC COATED) 81 mg EC tablet Take 81 mg by mouth two times a week. Cholecalciferol, Vitamin D3, 2,000 unit cap Take 1 tablet by mouth once daily. sertraline (ZOLOFT) 25 mg tablet Take 1 tablet by mouth once daily. (Patient not taking: Reported on 02/10/2024) No current facility-administered medications for this visit. FAMILY HISTORY Problem Relation Age of Onset Cancer Father lymphoma GI Mother Coronary Artery Disease Brother Ischemic Heart Disease Mother Social History Tobacco Use Smoking status: Former Types: Cigarettes Smokeless tobacco: Never Tobacco comments: Quit 1975 1-2 cig daily on the weekends Substance Use Topics Alcohol use: Yes Comment: rarely Drug use: No REVIEW OF SYSTEMS Weight loss, down 30 lb Grieving loss of Feels tired but can't sleep. No energy Doesn't want to do anything. No enjoyment Going to counseling BSS all over the place Sertraline caused hallucinations. EXAM: BP 134/68 Pulse 86 Wt 86.2 kg (190 lb) SpO2 98% BMI 27.26 kg/m PHYSICAL EXAM: Physical Exam Vitals reviewed. Constitutional: Appearance: Normal appearance. HENT: Head: Normocephalic. Cardiovascular: Rate and Rhythm: Normal rate and regular rhythm. Pulses: Normal pulses. Heart sounds: Normal heart sounds. Pulmonary: Effort: Pulmonary effort is normal. Breath sounds: Normal breath sounds. Musculoskeletal: General: No swelling, deformity or signs of injury. Normal range of motion. Skin: General: Skin is warm and dry. Neurological: Mental Status: He is alert. Psychiatric: Comments: Very depressed LABS: ASSESSMENT/PLAN: 1. Degeneration of lumbar intervertebral disc - ICD9: 722.52, ICD10: M51.36 (primary diagnosis) Chronic low back pain Stable 2. Anxiety with depression - ICD9: 300.4, ICD10: F41.8 - Wean off lorazepam - Start mirtazapine 7.5 mg at bedtime 3. Chronic insomnia - ICD9: 780.52, ICD10: F51.04 - Start mirtazapine 7.5 mg at bedtime - Wean off ativan- 1/2 tab at bedtime if needed until RX gone 4. Type 2 diabetes mellitus without complication, without long-term current use of insulin (HCC) - ICD9: 250.00, ICD10: E11.9 - Uncontrolled - Continue current medications 5. Weight loss - ICD9: 783.21, ICD10: R63.4 Ongoing- Lack of appetite - Start mirtazapine 7.5 mg at bedtime 6. 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) - ICD9: 255.8, ICD10: E27.8 Seeing specialist 7. Bilateral leg edema - ICD9: 782.3, ICD10: R60.0 Likely lack of protein and activity- only sock lines Discussed treatment plan and patient voices understanding. Patient's questions answered appropriately. Medications and potential side effects were discussed and patient voices understanding. Return to the office as scheduled or as needed for worsening/no improvement. Vianney Sahu APRN.[employer]AND[employer]ER documented in this encounterCleveland [id number] Telephone encounter Note * Telephone Encounter - Amelia Gonzalez - 02/09/2024 12:29 PM EDT Same question addressed in another encounter by PCP. Closing encounter. Amelia Gonzalez RN [facility]08-19-2024 Miscellaneous Notes* Telephone Encounter - Amelia Gonzalez - 02/09/2024 12:29 PM EDT Same question addressed in another encounter by PCP. Closing encounter. Amelia Gonzalez RN documented in this encounterMiami [facility]08-12-2024 Telephone encounter Note * Telephone Encounter - Enrrique Carmona MD - 02/02/2024 10:37 AM EDT Noted. Thank you. agree [facility]08-12-2024 Miscellaneous Notes* Telephone Encounter - Enrrique Carmona MD - 02/02/2024 10:37 AM EDT Noted. Thank you. agree * Telephone Encounter - Richelle Lees RN - 02/02/2024 10:10 AM EDT Call placed to patient and spoke to daughter. Daughter reports that patient is currently with another sibling. They are not able to leave patientalone as they are not certain of his mental health and what he might do. He speaks of dying and being with his . Severely depressed and not functioning normal. Reports excessive drinking three days ago before they started staying with him but now that they are with him they are monitoring that more. She said there are 5 siblings and none of them are equipped to care for him given the current situation. Per triage protocol ER Now. Recommended taking him to the ER for evaluation if they are not certain of his mental status and whether or not he might harm himself or someone. Caren verbalizes understanding and will take him to the ER for evaluation. Caren requested that I not contact patient as she feels that will make things worse and they are notgoing to give him an option of going. Richelle Lees RN Reason for Disposition [1] Depression AND [2] unable to do any of normal activities (e.g., self care, school, work; in comparison to baseline). Answer Assessment - Initial Assessment Questions See note Protocols used: [id number] documented in this encounterMiami Valley Hospital08-12-2024 Telephone encounter Note * Telephone Encounter - Richelle Lees RN - 02/02/2024 10:10 AM EDT Call placed to patient and spoke to daughter. Daughter reports that patient is currently with another sibling. They are not able to leave patientalone as they are not certain of his mental health and what he might do. He speaks of dying and being with his . Severely depressed and not functioning normal. Reports excessive drinking three days ago before they started staying with him but now that they are with him they are monitoring that more. She said there are 5 siblings and none of them are equipped to care for him given the current situation. Per triage protocol ER Now. Recommended taking him to the ER for evaluation if they are not certain of his mental status and whether or not he might harm himself or someone. Caren verbalizes understanding and will take him to the ER for evaluation. Caren requested that I not contact patient as she feels that will make things worse and they are notgoing to give him an option of going. Richelle Lees RN Reason for Disposition [1] Depression AND [2] unable to do any of normal activities (e.g., self care, school, work; in comparison to baseline). Answer Assessment - Initial Assessment Questions See note Protocols used: [id number] [facility]08-12-2024 Telephone encounter Note* Telephone Encounter - Elizabeth Marsh LPN - 02/02/2024 9:46 AM EDT Scheduled a triage appt. [facility]08-12-2024 Miscellaneous Notes* Telephone Encounter - Elizabeth Marsh LPN - 02/02/2024 9:46 AM EDT Scheduled a triage appt. * Telephone Encounter - Enrrique Carmona MD - 02/02/2024 9:26 AM EDT If severe, can call call crisis or head to Er if he is a danger to himself or others. Can we triage * Telephone Encounter - Anne Marie Schreiber MA - 02/02/2024 9:16 AM EDT See message, do you want this Triaged or do you want to advise? Anne Marie Schreiber MA documented in this encounterMiami [facility] Hospital08-12-2024 Telephone encounter Note * Telephone Encounter - Enrrique Carmona MD - 02/02/2024 9:26 AM EDT If severe, can call call crisis or head to Er if he is a danger to himself or others. Can we triage [facility]08-12-2024 Telephone encounter Note* Telephone Encounter - Anne Marie Schreiber MA - 02/02/2024 9:16 AM EDT See message, do you want this Triaged or do you want to advise? Anne Marie Schreiber MA [facility]08-08-2024 Telephone encounter Note* Telephone Encounter - Enrrique Carmona MD - 01/29/2024 11:28 AM EDT Given its size, would need to discuss with his department. [facility]08-08-2024 Miscellaneous Notes* Telephone Encounter - Enrrique Carmona MD - 01/29/2024 11:28 AM EDT Given its size, would need to discuss with his department. documented in this encounterMiami Valley Hospital08-02-2024 [facility]Children[facility] History of Present illness Narrative* Marcel Roberts MD - 01/23/2024 10:12 AM EDT Marcel Roberts M.D. [facility] [place] [address] ENDOCRINE SURGERY NEW CONSULTATION NAME: April Quesada [facility] NO: [id number] : 1940 REFERRING PROVIDER: MD Enrrique Ellison [address] [place], [place] [id number] The patient was referred by the above provider and my findings and recommendations will be communicated by way of the shared medical record or [place]. mail. HPI: April Quesada was evaluated today for a consultation regarding the following condition(s): Adrenal mass (hcc) (primary encounter diagnosis) Left upper quadrant abdominal mass Weight loss Rectal bleeding. New or established diagnosis: New; Mode of detection: Physical exam Associated symptoms: Abdominal fullness; early satiety Family history of endocrine tumors: No History of previous thyroid biopsy or any cervical operation: No Pertinent medications (blood thinners, calcium, biotin, diuretics, lithium): YES; XARELTO PMH: PAST MEDICAL HISTORY No date: Anxiety state, unspecified No date: Benign neoplasm of colon No date: Carotid stenosis No date: Depressive disorder, not elsewhere classified No date: Diverticulosis of colon (without mention of hemorrhage) No date: DM (diabetes mellitus) (HCC) No date: Gout No date: Hearing loss Comment: wears hearing aids No date: Hypertrophy of prostate without urinary obstruction and other lower urinary tract symptoms (LUTS) No date: Impotence of organic origin No date: Obesity, unspecified No date: Other and unspecified hyperlipidemia No date: Personal history of colonic polyps No date: Skin cancer, basal cell Comment: [employer] [place] No date: Unspecified essential hypertension PSH: PAST SURGICAL HISTORY 01/16/2017: CARDIAC CATH 2017: CARDIOVERSION 03/03/2014: COLONOSCOPY FLX DX W/COLLJ SPEC WHEN PFRMD Comment: Colonoscopy 05/31/2019: COLONOSCOPY FLX DX W/COLLJ SPEC WHEN PFRMD Comment: Colonoscopy 05/27/07: COLSC FLX W/RMVL OF TUMOR POLYP LESION SNARE TQ 08/09/10: COLSC FLX W/RMVL OF TUMOR POLYP LESION SNARE TQ 1997: PAST SURGICAL HISTORY OF Comment: arthroscopic lt knee surg 2000: PAST SURGICAL HISTORY OF Comment: Rt foot great toe fusion No date: TONSILLECTOMY & ADENOIDECTOMY <AGE 11 Medications: Current Outpatient Medications on File Prior to Visit Medication Sig cloNIDine HCl (CATAPRES) 0.1 mg tablet Take 1 tablet by mouth once daily. amLODIPine (NORVASC) 10 mg tablet Take 1 tablet by mouth once daily. LORazepam (ATIVAN) 0.5 mg Take 1 tablet by mouth at bedtime as needed for up to 90 days. metFORMIN ER (GLUCOPHAGE XR) 500 mg 24 hr tablet Take 1 tablet by mouth daily with breakfast. rivaroxaban (XARELTO) 20 mg tablet Take 1 tablet by mouth daily with dinner. furosemide (LASIX) 20 mg tablet Take 1 tablet by mouth once daily. atorvastatin (LIPITOR) 20 mg tablet Take 1 tablet by mouth daily at bedtime. For cholesterol. lisinopril (ZESTRIL) 40 mg tablet Take 1 tablet by mouth once daily. triamcinolone (KENALOG) 0.025 % ointment Apply to affected area three times daily. allopurinol (ZYLOPRIM) 100 mg tablet Take 1 tablet by mouth once daily. carvedilol (COREG) 3.125 mg tablet Take 3.125 mg by mouth twice daily with meals. aspirin, enteric coated (ASPIRIN, ENTERIC COATED) 81 mg EC tablet Take 81 mg by mouth two times a week. Cholecalciferol, Vitamin D3, 2,000 unit cap Take 1 tablet by mouth once daily. No current facility-administered medications on file prior to visit. All: ALLERGIES Allergen Reactions Cephalosporins Rash Doxycycline Rash photosensitivity dermatitis SH: Social History Tobacco Use Smoking status: Former Years: 1 Types: Cigarettes Smokeless tobacco: Never Tobacco comments: Quit 1975 1-2 cig daily on the weekends Substance Use Topics Alcohol use: Yes Comment: rarely Drug use: No FH: Pertinent history above; otherwise, non-contributory REVIEW OF SYSTEMS: GENERAL: Well-appearing, no malaise or fevers HEENT: Negative for occular, acoustic, nasal, or oral complaints NECK: See HPI RESPIRATORY: Negative for cough, hemoptysis, wheezing, or resting dyspnea CARDIOVASCULAR: Negative for resting chest pain GI: No nausea, vomiting, or diarrhea MUSCULOSKELETAL: Negative for joint swelling or acute pain PSYCH: Negative for significant mood disorder or psychiatric illness ENDOCRINE: See HPI NEURO: No history of recent syncope, paralysis, or seizures PHYSICAL EXAM: On physical exam, April Quesada is well appearing, alert, and oriented and appears euthyroid. There are no overt features of hypercortisolism. The abdomen is distended and there is a palpable left mass. There are no deformities of the flank. The extremities are well-perfused and do not contain anypitting edema. CT ABD/PEL W IVCON: DATE OF EXAM: Jan 09 2024 3:00PM [facility] 0530 - CT ABD/PEL W IVCON / PROCEDURE REASON: multiple diagnoses * * * * Physician Interpretation * * * * EXAMINATION: CT ABDOMEN AND PELVIS WITH IV CONTRAST CLINICAL HISTORY: Palpable left upper quadrant mass TECHNIQUE: CT of the abdomen and pelvis was performed using standard technique, scanning from just above the dome of the diaphragm to the symphysis pubis. MQ: CTAP_3 Contrast: IV: 100 ml of Omnipaque 350 Oral: 10 ml of Omni 240 10-25ml diluted with water CT Radiation dose: Integrated Dose-length product (DLP) for this visit = 751 mGy*cm. CT Dose Reduction Employed: Automated exposure control(AEC) and iterative recon COMPARISON: None. RESULT: Liver: No mass. Normal size Biliary: No bile duct dilation. Unremarkable gallbladder Spleen: No mass. No splenomegaly. Pancreas: No mass or duct dilation. Adrenals: 1. Left suprarenal ovoid mass measuring up to 23 cm is internally heterogeneous, having primarily peripheral areas of higher density in addition to scattered internal coarse calcifications. Mass margins are smoothly circumscribed rather than infiltrative. Compresses and displaces adjacent anatomic structures. 2. Left adrenal gland not identified. Normal right adrenal gland Kidneys: Bilateral cysts. No suspect lesions. No intrarenal calculi. No hydroureteronephrosis. Indeterminate 9 mm ovoid right pelvic calcification with regard to venous or distal ureteral. Approximately symmetric bilateral perirenal stranding GI tract: No dilation or wall thickening. Numerous distal colonic diverticula. Unremarkable appendix identified. Administered enteric contrast occupies distal small bowel and proximal large bowel Lymph nodes: Normal-sized lymph nodes Mesentery/Peritoneum: No ascites or mass. Retroperitoneum: See comments regarding adrenal glands Vasculature: Patent central vessels Pelvis: No mass, ascites or fluid collection. Bladder not overdistended. Prostate large. Bones/Soft Tissues: No acute osseous abnormality. Small fat-containing direct right inguinal hernia Lower thorax: No acute findings. Incidental small postinflammatory calcified pulmonary nodules Localizer images: Frontal and lateral images. Mass effect left abdomen. Bowel positioned right abdomen primarily. Bowel gas pattern nonobstructive. No evident consolidations imaged chest. External artifacts and devices. LABS: TSH Date Value Ref Range Status 01/06/2024 0.862 0.270 - 4.200 mIU/L Final Calcium, Total Date Value Ref Range Status 01/06/2024 9.7 8.5 - 10.2 mg/dL Final ASSESSMENT and PLAN: In summary, April Quesada has a newly-diagnosed, large left adrenal mass. We had a detailed discussion regarding the natural course of the condition, the treatment options, and the role of left adrenalectomy in providing potential diagnosis and cure depending on the pathology. Informed consent wasobtained for the aforementioned operation. The illness itself, the natural course of the illness, the procedure, the benefits, the risks, the alternatives, and who will comprise the surgical team were all explained to the patient in depth. They agreed to the operation (schedule for Fri, Mar 05. I appreciate being involved in the care of your patient, and please feel free to contact me should you have additional questions. Sincerely, Marcel Roberts M.D. Endocrine Surgeon [facility] CC: Enrrique Carmona [address] [place] [address] Enrrique Carmona MD documented in this encounterMiami Valley Hospital08-02-2024 Instructions* Patient Instructions* Bryon Melgar MA - 01/23/2024 8:59 AM EDT Thank you for choosing the [facility] Department of Endocrinology, Diabetes and Metabolism. Did you know that you need to call 48 hours in advance of your scheduled visit, if you are unable to make your appointment? The [facility] thanks you for your commitment, because patients not showing to their appointment results in a lost opportunity for patients to receive [facility] health care at the [facility]. To Cancel an appointment, please choose one of the following: - Call the Appointment Call Center at [phone] - From [email or web address], Go to Appointments - Cancel Appts If cancelling, consider your need to reschedule to prevent further delays in your care. To Schedule an appointment, please choose one of the following: - Call the Appointment Call Center at [phone] - From [email or web address], Go to Appointments - Request an Appt documented in this encounterMiami Valley Hospital07-30-2024 Telephone encounter Note * Telephone Encounter - Vianney Grissom LPN - 01/20/2024 1:38 PM EDT Prescription Refill Information The patient has been identified by name and date of : Yes Caregiver verified no other encounters exist for this prescription request: Yes Caregiver confirmed with patient/requestor that no other refills are due, in the near future, with this provider at this time: Yes The last office visit in the department: 01/16/2024 Does the patient have a future office visit with this provider/department: Yes Requested Prescriptions Pending Prescriptions Disp Refills cloNIDine HCl (CATAPRES) 0.1 mg tablet 60 tablet 5 Sig: Take 1 tablet by mouth once daily. amLODIPine (NORVASC) 10 mg tablet 90 tablet 1 Sig: Take 1 tablet by mouth once daily. Refused Prescriptions Disp Refills rivaroxaban (XARELTO) 20 mg tablet 90 tablet 3 Sig: Take 1 tablet by mouth daily with dinner. Vianney Grissom LPN January 20, 2024 1:39 PM [facility]07-30-2024 Miscellaneous Notes* Telephone Encounter - Vianney Grissom LPN - 01/20/2024 1:38 PM EDT Prescription Refill Information The patient has been identified by name and date of : Yes Caregiver verified no other encounters exist for this prescription request: Yes Caregiver confirmed with patient/requestor that no other refills are due, in the near future, with this provider at this time: Yes The last office visit in the department: 01/16/2024 Does the patient have a future office visit with this provider/department: Yes Requested Prescriptions Pending Prescriptions Disp Refills cloNIDine HCl (CATAPRES) 0.1 mg tablet 60 tablet 5 Sig: Take 1 tablet by mouth once daily. amLODIPine (NORVASC) 10 mg tablet 90 tablet 1 Sig: Take 1 tablet by mouth once daily. Refused Prescriptions Disp Refills rivaroxaban (XARELTO) 20 mg tablet 90 tablet 3 Sig: Take 1 tablet by mouth daily with dinner. Vianney Grissom LPN January 20, 2024 1:39 PM documented in this encounterMiami Valley Hospital07-26-2024 NoteChildren'[facility] For [facility]07-26-2024 History of Present illness Narrative* Enrrique Carmona MD - 01/16/2024 1:25 PM EDT Patient presents with: Follow Up HPI: Patient presents today for office visit to discuss most recent CT. Here today with daughter, Caren. Daughter states they are here for more clarity of test results and next steps. IFOBT showed blood in the stool. Consult to general surgery placed. Daughter mentions possibly wanting to wait on this consult until he sees Endo surgery on 01/23/24. CT Abd/pel shows 23 cm left adrenal mass. Scheduled with Endo surgery on 01/23/24. Pre-visit labs and urine ordered. Not sure when he's to get these. PSYCH: Currently taking Lorazepam 0.5 mg qhs Needing refill Helps him sleep Discussed supplements for weight loss. Bp is stable. No flushing etc. MEDICATIONS: Current Outpatient Medications Medication Sig LORazepam (ATIVAN) 0.5 mg Take 0.5 tablets by mouth at bedtime as needed for up to 90 days. metFORMIN ER (GLUCOPHAGE XR) 500 mg 24 hr tablet Take 1 tablet by mouth daily with breakfast. rivaroxaban (XARELTO) 20 mg tablet Take 1 tablet by mouth daily with dinner. furosemide (LASIX) 20 mg tablet Take 1 tablet by mouth once daily. amLODIPine (NORVASC) 10 mg tablet Take 1 tablet by mouth once daily. cloNIDine HCl (CATAPRES) 0.1 mg tablet Take 1 tablet by mouth once daily. atorvastatin (LIPITOR) 20 mg tablet Take 1 tablet by mouth daily at bedtime. For cholesterol. lisinopril (ZESTRIL) 40 mg tablet Take 1 tablet by mouth once daily. triamcinolone (KENALOG) 0.025 % ointment Apply to affected area three times daily. allopurinol (ZYLOPRIM) 100 mg tablet Take 1 tablet by mouth once daily. carvedilol (COREG) 3.125 mg tablet Take 3.125 mg by mouth twice daily with meals. aspirin, enteric coated (ASPIRIN, ENTERIC COATED) 81 mg EC tablet Take 81 mg by mouth two times a week. Cholecalciferol, Vitamin D3, 2,000 unit cap Take 1 tablet by mouth once daily. No current facility-administered medications for this visit. ALLERGIES: ALLERGIES Allergen Reactions Cephalosporins Rash Doxycycline Rash photosensitivity dermatitis PAST MEDICAL HISTORY Diagnosis Date Anxiety state, unspecified Benign neoplasm of colon Carotid stenosis Depressive disorder, not elsewhere classified Diverticulosis of colon (without mention of hemorrhage) DM (diabetes mellitus) (HCC) Gout Hearing loss wears hearing aids Hypertrophy of prostate without urinary obstruction and other lower urinary tract symptoms (LUTS) Impotence of organic origin Obesity, unspecified Other and unspecified hyperlipidemia Personal history of colonic polyps Skin cancer, basal cell [employer] [place] Unspecified essential hypertension PAST SURGICAL HISTORY Procedure Laterality Date CARDIAC CATH 01/16/2017 CARDIOVERSION 2017 COLONOSCOPY FLX DX W/COLLJ SPEC WHEN PFRMD 03/03/2014 Colonoscopy COLONOSCOPY FLX DX W/COLLJ SPEC WHEN PFRMD 05/31/2019 Colonoscopy COLSC FLX W/RMVL OF TUMOR POLYP LESION SNARE TQ 05/27/07 COLSC FLX W/RMVL OF TUMOR POLYP LESION SNARE TQ 08/09/10 PAST SURGICAL HISTORY OF 1997 arthroscopic lt knee surg PAST SURGICAL HISTORY OF 1999 Rt foot great toe fusion TONSILLECTOMY & ADENOIDECTOMY <AGE 11 FAMILY HISTORY Problem Relation Age of Onset Cancer Father lymphoma GI Mother Coronary Artery Disease Brother Ischemic Heart Disease Mother Social History Tobacco Use Smoking status: Former Years: 1 Types: Cigarettes Smokeless tobacco: Never Tobacco comments: Quit 1975 1-2 cig daily on the weekends Substance Use Topics Alcohol use: Yes Comment: rarely Drug use: No Reviewed current medications, allergies, past medical history, surgical history, family history andsocial history today. REVIEW OF SYSTEMS All other reviewed and negative other than HPI. VITALS: BP 118/62 Pulse 96 Ht 177.8 cm (5' 10") Wt 87.5 kg (193 lb) SpO2 97% BMI 27.69 kg/m Last 4 Encounter Wt Readings: Date: Wt: 01/16/2024 87.5 kg (193 lb) 01/05/2024 88.9 kg (196 lb) 10/31/2023 92.1 kg (203 lb) 10/03/2023 91.6 kg (202 lb) PHYSICAL EXAMINATION: General appearance: Well appearing, alert, in no acute distress, well-hydrated, well nourished. Skin: Skin color, texture, turgor normal, no suspicious rashes or lesions Head: Normocephalic, no masses, lesions, tenderness or abnormalities Lungs: Lungs clear to auscultation. No wheezing, rhonchi, rales Heart: RRR without murmur, gallop, or rubs. No ectopy Abdomen: soft, fullness/mass palpable on LUQ ASSESSMENT/PLAN: 1. 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) - ICD9: 255.8, ICD10: E27.8 (primary diagnosis) - reinforced reasoning behind seeing endo surgery. - getting labs today for further eval 2. Anxiety - ICD9: 300.00, ICD10: F41.9 - refilled meds. - LORAZEPAM 0.5 MG TABLET 3. Medication monitoring encounter - ICD9: V58.83, ICD10: Z51.81 - LORAZEPAM 0.5 MG TABLET 4. Rectal bleeding - ICD9: 569.3, ICD10: K62.5 - had been referred to general surgery(there is no gi availability in [facility]) for possible scopes. Family wants to hold until adrenal gland is checked. 5. Weight loss - ICD9: 783.21, ICD10: R63.4 -as above. Enrrique Carmona MD documented in this encounterMiami [facility] Hospital07-24-2024 Telephone encounter Note * Telephone Encounter - Shawna Sinclair - 01/14/2024 2:58 PM EDT 01/14/24: INTAKE QUESTIONS COMPLETE - BLOOD & URINE ORDERED ENDOCRINE SURGERY PATIENT WORKSHEET Initial Call Date: January 14, 2024 Reason for Consult/ Referral: Hyperparathyroid PATIENT DEMOGRAPHICS Name: April Quesada [facility]#: [id number] : 1940 AGE: [age] year old Contact Numbers: Home: (home) Work: There is no work phone number on file. PATIENT PHYSICIAN INFORMATION Referring Doctor: Dr. Enrrique Carmona Address: Phone: [employer] Developer: n/a Address: Phone: PCP: Enrrique Carmona [address] [place] [address] PAST TREATMENT Office notes: SEE [facility] Medications: Aspirin No Pre-Visit Testing STUDY/TEST DATE ORDERED/REQUESTED DATE RECEIVED ENTIRE PANEL CALCIUM MAGNESIUM PHOS iPTH IONIZED CALCIUM VIT. D 25-HYDROXY VIT. D 1, 25-DIHYDROXY ALBUMIN 24HR URINE CALCIUM 24 HR URINE CREATININE MIBI SCAN BONE DENSITY SCAN Imaging Reports: SEE [facility] CD of Images: [facility] FNA: no FNA Slides: N/A Has the patient ever had thyroid or parathyroid surgery before: No Operative Reports: NONE AVAILABLE Pathology Reports: NONE AVAILABLE [facility]07-24-2024 Miscellaneous Notes* Telephone Encounter - Shawna Sinclair - 01/14/2024 2:58 PM EDT 01/14/24: INTAKE QUESTIONS COMPLETE - BLOOD & URINE ORDERED ENDOCRINE SURGERY PATIENT WORKSHEET Initial Call Date: January 14, 2024 Reason for Consult/ Referral: Hyperparathyroid PATIENT DEMOGRAPHICS Name: April Quesada CCF#: [id number] : 1940 AGE: [age] year old Contact Numbers: Home: (home) Work: There is no work phone number on file. PATIENT PHYSICIAN INFORMATION Referring Doctor: Dr. Enrrique Carmona Address: Phone: [employer] Developer: n/a Address: Phone: PCP: Enrrique Carmona [address] [place] [address] PAST TREATMENT Office notes: SEE EPIC Medications: Aspirin No Pre-Visit Testing STUDY/TEST DATE ORDERED/REQUESTED DATE RECEIVED ENTIRE PANEL CALCIUM MAGNESIUM PHOS iPTH IONIZED CALCIUM VIT. D 25-HYDROXY VIT. D 1, 25-DIHYDROXY ALBUMIN 24HR URINE CALCIUM 24 HR URINE CREATININE MIBI SCAN BONE DENSITY SCAN Imaging Reports: [facility] CD of Images: SEE EPIC FNA: no FNA Slides: N/A Has the patient ever had thyroid or parathyroid surgery before: No Operative Reports: NONE AVAILABLE Pathology Reports: NONE AVAILABLE documented [facility] encounterMi[facility] Telephone encounter Note * Telephone Encounter - Elizabeth Marsh LPN - 01/14/2024 8:57 AM EDT LC 01/05/24 Scheduled 01/16/24 [facility]07-24-2024 Miscellaneous Notes* Telephone Encounter - Elizabeth Marsh LPN - 01/14/2024 8:57 AM EDT LC 01/05/24 Scheduled 01/16/24 documented in [facility] encounterMi[facility]24 Telephone encounter Note * Telephone Encounter - Dorothea Betancourt MA - 01/10/2024 10:04 AM EDT Spoke with patient and he verbalized understanding. Dorothea Betancourt MA [facility]07-20-2024 Miscellaneous Notes* Telephone Encounter - Dorothea Betancourt MA - 01/10/2024 10:04 AM EDT Spoke with patient and he verbalized understanding. Dorothea Betancourt MA * Telephone Encounter - Enrrique Carmona MD - 01/09/2024 5:42 PM EDT See te. Patient has large adrenal mass. Set up with endocrine surgery nancy. Also because of large prostate, check psa. documented in [facility] encounterMi[facility] Telephone encounter Note * Telephone Encounter - Enrrique Carmona MD - 01/09/2024 5:42 PM EDT See te. Patient has large adrenal mass. Set up with endocrine surgery nancy. Also because of large prostate, check psa. [facility]07-19-2024 History of Present illness Narrative* Reef Sandhya Mccauley RT(R) - 01/09/2024 2:20 PM EDT Radiology Service Progress Note DATE OF SERVICE: January 09, 2024 TIME: 3:05 PM PATIENT IDENTITY VERIFICATION COMPLETED USING TWO (2) STANDARD IDENTIFIERS: Name and Date of confirmed by patient verbally. FALL SCREENING: Has the patient had 2 falls in the last year or 1 fall with injury or currently using an Ambulatory Assistive Device (Walker, Cane, Wheelchair, Crutches, etc.)? No PATIENT GENDER DATA: Male PATIENT RELEVANT IMPLANT DATA REVIEWED: Yes PATIENT PRESENTS WITH AN IMPLANTABLE OR ATTACHED SUPERVISOR TELEVISION CHASSIS REPAIR: No ALLERGIES: Reviewed and unchanged CONTRAST ALLERGY: NO. EXAM: CT -CONTRAST INDUCED NEPHROPATHY RISK FACTORS: Patient age > 60 years CREATININE: Creatinine Date Value Ref Range Status 01/06/2024 0.99 0.73 - 1.22 mg/dL Final 04/03/2023 0.98 0.73 - 1.22 mg/dL Final 09/26/2022 0.87 0.73 - 1.22 mg/dL Final Estimated Glomerular Filtration Rate Date Value Ref Range Status 01/06/2024 75 >=60 mL/min/1.73m Final Comment: Estimated Glomerular Filtration Rate (eGFR) is calculated using the 2020 CKD-EPI creatinine equation. This equation utilizes serum creatinine, sex, and age as parameters. The creatinine assay has traceable calibration to isotope dilution- mass spectrometry. Refer to KDIGO guidelines for clinical interpretation. In patients with unstable renal function, e.g. those with acute kidney injury, the eGFRmay not accurately reflect actual GFR. eGFR- Date Value Ref Range Status 03/26/2021 >60 Final P.O.C.T. RESULTS: POC done: Yes, See Lab Tab January 09, 2024 TREATMENT: N/A PERIPHERAL IV DATA: Ambulatory: A peripheral IV was started in the Left antecubital site with a Angio cath: 22 gauge. RADIOLOGY DEPARTMENT: CT; Exam(s) Completed: Abdomen/Pelvis SIGNATURE: RT Sacha(R) PATIENT NAME: April Quesada DATE: January 09, 2024 TIME: 3:05 PM documented in this encounterMiami [facility]24 [facility] Tele[facility] encounter Note* Telephone Encounter - Dorothea Betancourt MA - 01/07/2024 2:10 PM EDT Patient and his daughter informed. Verbalized understanding. Dorothea Betancourt MA [facility]07-17-2024 Miscellaneous Notes* Telephone Encounter - Dorothea Betancourt MA - 01/07/2024 2:10 PM EDT Patient and his daughter informed. Verbalized understanding. Dorothea Betancourt MA * Telephone Encounter - Enrrique Carmona MD - 01/07/2024 12:08 PM EDT We are waiting on his labs all to come back. However, he has blood in his stool. Given his weight loss, and lump in his stomach that he is getting a ct for, see surgery also for possible scopes to rule out source of blood. documented in this encounterMiami [facility]07-17-2024 Telephone encounter Note * Telephone Encounter - Enrrique Carmona MD - 01/07/2024 12:08 PM EDT We are waiting on his labs all to come back. However, he has blood in his stool. Given his weight loss, and lump in his stomach that he is getting a ct for, see surgery also for possible scopes to rule out source of blood. [facility] History of Present illness Narrative* Enrrique Carmona MD - 01/05/2024 5:06 PM EDT Patient presents with: Follow Up HPI: Patient presents today for office visit for follow up. On 12/26/23 had echo and carotid US. Echo showed a large left upper quad mass. Here with daughter today to discuss. Besides ongoing shortness of breath no complaints. Still seeing [facility] and that is who ordered tests that were done. ECHO/Echo Complete Interpretation Summary The left ventricular ejection fraction is 55 %. Left ventricular systolic function is normal. Normal LV size. The left atrium is moderately enlarged. The right atrium is moderately enlarged. Large left upper quadrant mass is noted. Unclear etiology. Pulmonary artery systolic pressure is 45 mmHg. Mild pulmonary hypertension. He does not feel any masses in the area. No pain in the area. No new nausea. No vomiting. No bowel changes. No bloody or black stools currently. Did have one episode a few months ago. None since. No constipation or diarrhea. Just had a normal cbc. Recent creatine was ok. No bruising. No worsening shortness of breath. Has been losing weight over the last year. Decreased appetite he thinks is due to stress. MEDICATIONS: Current Outpatient Medications Medication Sig metFORMIN ER (GLUCOPHAGE XR) 500 mg 24 hr tablet Take 1 tablet by mouth daily with breakfast. rivaroxaban (XARELTO) 20 mg tablet Take 1 tablet by mouth daily with dinner. furosemide (LASIX) 20 mg tablet Take 1 tablet by mouth once daily. amLODIPine (NORVASC) 10 mg tablet Take 1 tablet by mouth once daily. cloNIDine HCl (CATAPRES) 0.1 mg tablet Take 1 tablet by mouth once daily. atorvastatin (LIPITOR) 20 mg tablet Take 1 tablet by mouth daily at bedtime. For cholesterol. lisinopril (ZESTRIL) 40 mg tablet Take 1 tablet by mouth once daily. triamcinolone (KENALOG) 0.025 % ointment Apply to affected area three times daily. allopurinol (ZYLOPRIM) 100 mg tablet Take 1 tablet by mouth once daily. carvedilol (COREG) 3.125 mg tablet Take 3.125 mg by mouth twice daily with meals. aspirin, enteric coated (ASPIRIN, ENTERIC COATED) 81 mg EC tablet Take 81 mg by mouth two times a week. Cholecalciferol, Vitamin D3, 2,000 unit cap Take 1 tablet by mouth once daily. No current facility-administered medications for this visit. ALLERGIES: ALLERGIES Allergen Reactions Cephalosporins Rash Doxycycline Rash photosensitivity dermatitis PAST MEDICAL HISTORY Diagnosis Date Anxiety state, unspecified Benign neoplasm of colon Carotid stenosis Depressive disorder, not elsewhere classified Diverticulosis of colon (without mention of hemorrhage) DM (diabetes mellitus) (HCC) Gout Hearing loss wears hearing aids Hypertrophy of prostate without urinary obstruction and other lower urinary tract symptoms (LUTS) Impotence of organic origin Obesity, unspecified Other and unspecified hyperlipidemia Personal history of colonic polyps Skin cancer, basal cell [employer] [place] Unspecified essential hypertension PAST SURGICAL HISTORY Procedure Laterality Date CARDIAC CATH 01/16/2017 CARDIOVERSION 2017 COLONOSCOPY FLX DX W/COLLJ SPEC WHEN PFRMD 03/03/2014 Colonoscopy COLONOSCOPY FLX DX W/COLLJ SPEC WHEN PFRMD 05/31/2019 Colonoscopy COLSC FLX W/RMVL OF TUMOR POLYP LESION SNARE TQ 05/27/07 COLSC FLX W/RMVL OF TUMOR POLYP LESION SNARE TQ 08/09/10 PAST SURGICAL HISTORY OF 1997 arthroscopic lt knee surg PAST SURGICAL HISTORY OF 1999 Rt foot great toe fusion TONSILLECTOMY & ADENOIDECTOMY <AGE 11 FAMILY HISTORY Problem Relation Age of Onset Cancer Father lymphoma GI Mother Coronary Artery Disease Brother Ischemic Heart Disease Mother Social History Tobacco Use Smoking status: Former Years: 1 Types: Cigarettes Smokeless tobacco: Never Tobacco comments: Quit 1975 1-2 cig daily on the weekends Substance Use Topics Alcohol use: Yes Comment: rarely Drug use: No Reviewed current medications, allergies, past medical history, surgical history, family history andsocial history today. REVIEW OF SYSTEMS All other reviewed and negative other than HPI. VITALS: BP 136/82 Pulse 91 Wt 88.9 kg (196 lb) SpO2 96% BMI 28.12 kg/m Last 4 Encounter Wt Readings: Date: Wt: 10/31/2023 92.1 kg (203 lb) 10/03/2023 91.6 kg (202 lb) 04/02/2023 92.1 kg (203 lb) 12/26/2022 95.5 kg (210 lb 9.6 oz) PHYSICAL EXAMINATION: General appearance: Well appearing, alert, in no acute distress, well-hydrated, well nourished. Skin: Skin color, texture, turgor normal, no suspicious rashes or lesions Head: Normocephalic, no masses, lesions, tenderness or abnormalities Lungs: Lungs clear to auscultation. No wheezing, rhonchi, rales Heart: RRR without murmur, gallop, or rubs. No ectopy Abdomen: soft, large smooth palpable mass in the left upper quadrant. Not really tender. ? Spleen. Extremities: No deformities, edema, skin discoloration, clubbing or cyanosis. Good capillary refill. Musculoskeletal: No joint swelling, deformity, or tenderness ASSESSMENT/PLAN: 1. Blood in stool - ICD9: 578.1, ICD10: K92.1 (primary diagnosis) - Red flags for re-assessment reviewed with patient in detail. - IMMUNOCHEMICAL FECAL OCCULT BLOOD TEST 2. Weight loss - ICD9: 783.21, ICD10: R63.4 - check labs and ct nancy. Red flags for re-assessment reviewed with patient in detail. - COMPLETE BLOOD COUNT AND DIFFERENTIAL - COMPREHENSIVE METABOLIC PANEL - CT ABD/PEL W IVCON - IV CONTRAST (RADIOLOGY PROCEDURE) - ENTERIC CONTRAST (RADIOLOGY PROCEDURE) - THYROID STIMULATING HORMONE - SEDIMENTATION RATE, WESTERGREN - PREALBUMIN 3. Left upper quadrant abdominal mass - ICD9: 789.32, ICD10: R19.02 - as above. - CT ABD/PEL W IVCON - IV CONTRAST (RADIOLOGY PROCEDURE) - ENTERIC CONTRAST (RADIOLOGY PROCEDURE) - PREALBUMIN 4. Intra-abdominal and pelvic swelling, mass and lump, unspecified site - ICD9: 789.30, ICD10: R19.00 -as above. Rule mass - CT ABD/PEL W IVCON Enrrique Carmona MD documented in this encounterMiami [facility]06-29-2024 History of Present illness Narrative* Jeni Bonds - 12/20/2023 11:20 AM EDT April Quesada is identified through a medication adherence outreach initiative based on pharmacy claims data from [facility] (insurer) for Non-insulin DM medication(s). Patient is reviewed 12/20/23 due to medication adherence concerns with the following medications (name, strength, sig): Metformin ER 500 mg 1 tablet every day . Per data/report, last fill date and days supply: Due 11/15/2023 Per reconcile dispense, last fill date and days supply: 12/15/2023 for 90 days Per call to pharmacy, last picked up date and days supply: NA Outcome of review/outreach: (choose outcome source and status) - Filled later than 7 days after Next fill date per reconcile dispense Jeni Bonds documented in this encounterMiami [facility] Hospital06-24-2024 Telephone encounter Note * Telephone Encounter - Vianney Sahu APRN.CNS - 12/15/2023 2:17 PM EDT The following approved medication requests have been transmitted electronically. Requested Prescriptions Pending Prescriptions Disp Refills metFORMIN ER (GLUCOPHAGE XR) 500 mg 24 hr tablet 30 tablet 11 Sig: Take 1 tablet by mouth daily with breakfast. Vianney Sahu APRN.CNS [facility]06-24-2024 Miscellaneous Notes* Telephone Encounter - Vianney Sahu APRN.CNS - 12/15/2023 2:17 PM EDT The following approved medication requests have been transmitted electronically. Requested Prescriptions Pending Prescriptions Disp Refills metFORMIN ER (GLUCOPHAGE XR) 500 mg 24 hr tablet 30 tablet 11 Sig: Take 1 tablet by mouth daily with breakfast. Vianney Sahu APRN.CNS * Telephone Encounter - Renetta Izquierdo OCCA - 12/15/2023 7:27 AM EDT Prescription Refill Information The patient has been identified by name and date of : Yes Caregiver verified no other encounters exist for this prescription request: Yes Caregiver confirmed with patient/requestor that no other refills are due, in the near future, with this provider at this time: Yes The last office visit in the department: 10/31/2023 Does the patient have a future office visit with this provider/department: Yes, 05/04/2024 Requested Prescriptions Pending Prescriptions Disp Refills metFORMIN ER (GLUCOPHAGE XR) 500 mg 24 hr tablet 30 tablet 11 Sig: Take 1 tablet by mouth daily with breakfast. PREMA Antonio December 15, 2023 7:28 AM documented in this encounterMiami [facility] Hospital06-24-2024 Telephone encounter Note * Telephone Encounter - Renetta Izquierdo OCCA - 12/15/2023 7:27 AM EDT Prescription Refill Information The patient has been identified by name and date of : Yes Caregiver verified no other encounters exist for this prescription request: Yes Caregiver confirmed with patient/requestor that no other refills are due, in the near future, with this provider at this time: Yes The last office visit in the department: 10/31/2023 Does the patient have a future office visit with this provider/department: Yes, 05/04/2024 Requested Prescriptions Pending Prescriptions Disp Refills metFORMIN ER (GLUCOPHAGE XR) 500 mg 24 hr tablet 30 tablet 11 Sig: Take 1 tablet by mouth daily with breakfast. PREMA Antonio December 15, 2023 7:28 AM [facility]-18-[facility] Telephone encounter Note* Telephone Encounter - Valentine Fountain MA - 12/09/2023 1:04 PM EDT Prescription Refill Information The patient has been identified by name and date of : Yes Caregiver verified no other encounters exist for this prescription request: Yes Caregiver confirmed with patient/requestor that no other refills are due, in the near future, with this provider at this time: No The last office visit in the department: 10/31/23 Does the patient have a future office visit with this provider/department: Yes Requested Prescriptions Pending Prescriptions Disp Refills furosemide (LASIX) 20 mg tablet 90 tablet 1 Sig: Take 1 tablet by mouth once daily. Valentine Fountain MA December 09, 2023 1:04 PM [facility]-18-[facility]24 Miscellaneous Notes* Telephone Encounter - Valentine Fountain MA - 12/09/2023 1:04 PM EDT Prescription Refill Information The patient has been identified by name and date of : Yes Caregiver verified no other encounters exist for this prescription request: Yes Caregiver confirmed with patient/requestor that no other refills are due, in the near future, with this provider at this time: No The last office visit in the department: 10/31/23 Does the patient have a future office visit with this provider/department: Yes Requested Prescriptions Pending Prescriptions Disp Refills furosemide (LASIX) 20 mg tablet 90 tablet 1 Sig: Take 1 tablet by mouth once daily. Valentine Fountain MA December 09, 2023 1:04 PM documented in this encounterMiami Valley Hospital06-12-2024 History of Present illness Narrative* Jeni Bonds - 12/03/2023 10:27 AM EDT April Quesada is identified through a medication adherence outreach initiative based on pharmacy claims data from [employer] (insurer) for Statin medication(s). Patient is reviewed 12/03/23 due to medication adherence concerns with the following medications (name, strength, sig): Atorvastatin 20 mg 1 tablet every day . Per data/report, last fill date and days supply: Due 10/09/2023 Per reconcile dispense, last fill date and days supply: No data Per call to pharmacy, last picked up date and days supply: NA Contacted patient: No answer; left generic VM Outcome of review/outreach: (choose outcome source and status) - LVM for patient -[employer] - The Bigger Picturehart message sent to patient Jeni Raquel Bonds documented in this encounterMiami Valley Hospital05-10-2024 Instructions* Patient Instructions* Vianney Sahu APRN.CNS - 10/31/2023 1:30 PM EDT 1) Consider melatonin with L-theanine 2) Follow up in 6 months documented in this encounterMiami Valley Hospital05-10-2024 History of Present illness Narrative* Vianney Sahu APRN.CNS - 10/31/2023 1:13 PM EDT This is a 83 year old male who presents today with: Patient presents with: Follow Up HISTORY OF PRESENT ILLNESS: April Quesada is a 83 year old male. Patient presents with: Follow Up Pt. Did not tolerate sertraline for depression and stress. Quit taking it after 2 days. No rash. Feeling irritable. "Bad feelings". Has underlined nervousness and restlessness. Stress level improved. Has help now for who has dementia. Taking supplement for sleep- turn and burn. (Quercetin, grape seed extract, cocoa, Reservatrol, fucoxanthin, pomegranate, kianna, and melatonin) Passed blood with bowel movement on Friday. Happened only Friday. PAST MEDICAL HISTORY: PAST MEDICAL HISTORY Diagnosis Date Anxiety state, unspecified Benign neoplasm of colon Carotid stenosis Depressive disorder, not elsewhere classified Diverticulosis of colon (without mention of hemorrhage) DM (diabetes mellitus) (HCC) Gout Hearing loss wears hearing aids Hypertrophy of prostate without urinary obstruction and other lower urinary tract symptoms (LUTS) Impotence of organic origin Obesity, unspecified Other and unspecified hyperlipidemia Personal history of colonic polyps Skin cancer, basal cell [employer] [place] [employer] Unspecified essential hypertension PAST SURGICAL HISTORY Procedure Laterality Date CARDIAC CATH 01/16/2017 CARDIOVERSION 2017 COLONOSCOPY FLX DX W/COLLJ SPEC WHEN PFRMD 03/03/2014 Colonoscopy COLONOSCOPY FLX DX W/COLLJ SPEC WHEN PFRMD 05/31/2019 Colonoscopy COLSC FLX W/RMVL OF TUMOR POLYP LESION SNARE TQ 05/27/07 COLSC FLX W/RMVL OF TUMOR POLYP LESION SNARE TQ 08/09/10 PAST SURGICAL HISTORY OF 1997 arthroscopic lt knee surg PAST SURGICAL HISTORY OF 1999 Rt foot great toe fusion TONSILLECTOMY & ADENOIDECTOMY <AGE 11 ALLERGIES Cephalosporins and Doxycycline MEDICATIONS Current Outpatient Medications Medication Sig LORazepam (ATIVAN) 0.5 mg Take 0.5 tablets by mouth two times a day for 90 days. (Patient taking differently: Take 0.25 mg by mouth at bedtime as needed.) amLODIPine (NORVASC) 10 mg tablet Take 1 tablet by mouth once daily. cloNIDine HCl (CATAPRES) 0.1 mg tablet Take 1 tablet by mouth once daily. atorvastatin (LIPITOR) 20 mg tablet Take 1 tablet by mouth daily at bedtime. For cholesterol. lisinopril (ZESTRIL) 40 mg tablet Take 1 tablet by mouth once daily. triamcinolone (KENALOG) 0.025 % ointment Apply to affected area three times daily. metFORMIN ER (GLUCOPHAGE XR) 500 mg 24 hr tablet Take 1 tablet by mouth daily with breakfast. allopurinol (ZYLOPRIM) 100 mg tablet Take 1 tablet by mouth once daily. carvedilol (COREG) 3.125 mg tablet Take 3.125 mg by mouth twice daily with meals. rivaroxaban (XARELTO) 20 mg tablet Take 20 mg by mouth daily with dinner. aspirin, enteric coated (ASPIRIN, ENTERIC COATED) 81 mg EC tablet Take 81 mg by mouth two times a week. Cholecalciferol, Vitamin D3, 2,000 unit cap Take 1 tablet by mouth once daily. sertraline (ZOLOFT) 50 mg tablet Take 1/2 tab once a day orally for one week then 1 tab once a day (Patient not taking: Reported on 10/31/2023) furosemide (LASIX) 20 mg tablet Take 1 tablet by mouth once daily. No current facility-administered medications for this visit. FAMILY HISTORY Problem Relation Age of Onset Cancer Father lymphoma GI Mother Coronary Artery Disease Brother Ischemic Heart Disease Mother Social History Tobacco Use Smoking status: Former Years: 1 Types: Cigarettes Smokeless tobacco: Never Tobacco comments: Quit 1975 1-2 cig daily on the weekends Substance Use Topics Alcohol use: Yes Comment: rarely Drug use: No EXAM: BP 130/62 Pulse 89 Resp 16 Wt 92.1 kg (203 lb) SpO2 96% BMI 29.13 kg/m PHYSICAL EXAM: Physical Exam Vitals and nursing note reviewed. Constitutional: Appearance: Normal appearance. HENT: Head: Normocephalic. Cardiovascular: Rate and Rhythm: Normal rate and regular rhythm. Pulmonary: Effort: Pulmonary effort is normal. Breath sounds: Normal breath sounds. Neurological: Mental Status: He is alert. LABS: ASSESSMENT/PLAN: 1. Anxiety with depression - ICD9: 300.4, ICD10: F41.8 Improved - Taking Caodaism supplement - Discussed replacing that supplement with melatonin - Quit sertraline Discussed treatment plan and patient voices understanding. Patient's questions answered appropriately. Medications and potential side effects were discussed and patient voices understanding. Return to the office as scheduled or as needed for worsening/no improvement. Vianney Sahu APRN.ROAD CLEANER documented in this encounterMiami Valley Hospital04-12-2024 History of Present illness Narrative* Enrrique Carmona MD - 10/03/2023 1:59 PM EDT Patient presents with: 6 Month Exam HPI: Patient presents today for office visit for follow up. Admits to depression and stress. Having to care for his who has signficant depression. Uses ativan hs. Discussed risks and benefits. No misuse or abuse. No bleeding or bruising. Seeing [facility]. He thinks cardiology has checked his carotids in the last year. No chest pain No shortness of breath. No palpitations. No gout. Bp is well controlled. MEDICATIONS: Current Outpatient Medications Medication Sig LORazepam (ATIVAN) 0.5 mg Take 0.5 tablets by mouth two times a day for 90 days. amLODIPine (NORVASC) 10 mg tablet Take 1 tablet by mouth once daily. cloNIDine HCl (CATAPRES) 0.1 mg tablet Take 1 tablet by mouth once daily. atorvastatin (LIPITOR) 20 mg tablet Take 1 tablet by mouth daily at bedtime. For cholesterol. lisinopril (ZESTRIL) 40 mg tablet Take 1 tablet by mouth once daily. triamcinolone (KENALOG) 0.025 % ointment Apply to affected area three times daily. metFORMIN ER (GLUCOPHAGE XR) 500 mg 24 hr tablet Take 1 tablet by mouth daily with breakfast. furosemide (LASIX) 20 mg tablet Take 1 tablet by mouth once daily. allopurinol (ZYLOPRIM) 100 mg tablet Take 1 tablet by mouth once daily. carvedilol (COREG) 3.125 mg tablet Take 3.125 mg by mouth twice daily with meals. rivaroxaban (XARELTO) 20 mg tablet Take 20 mg by mouth daily with dinner. aspirin, enteric coated (ASPIRIN, ENTERIC COATED) 81 mg EC tablet Take 81 mg by mouth two times a week. Cholecalciferol, Vitamin D3, 2,000 unit cap Take 1 tablet by mouth once daily. No current facility-administered medications for this visit. ALLERGIES: ALLERGIES Allergen Reactions Cephalosporins Rash Doxycycline Rash photosensitivity dermatitis PAST MEDICAL HISTORY Diagnosis Date Anxiety state, unspecified Benign neoplasm of colon Carotid stenosis Depressive disorder, not elsewhere classified Diverticulosis of colon (without mention of hemorrhage) DM (diabetes mellitus) (HCC) Gout Hearing loss wears hearing aids Hypertrophy of prostate without urinary obstruction and other lower urinary tract symptoms (LUTS) Impotence of organic origin Obesity, unspecified Other and unspecified hyperlipidemia Personal history of colonic polyps Skin cancer, basal cell [employer] [place] Unspecified essential hypertension PAST SURGICAL HISTORY Procedure Laterality Date CARDIAC CATH 01/16/2017 CARDIOVERSION 2017 COLONOSCOPY FLX DX W/COLLJ SPEC WHEN PFRMD 03/03/2014 Colonoscopy COLONOSCOPY FLX DX W/COLLJ SPEC WHEN PFRMD 05/31/2019 Colonoscopy COLSC FLX W/RMVL OF TUMOR POLYP LESION SNARE TQ 05/27/07 COLSC FLX W/RMVL OF TUMOR POLYP LESION SNARE TQ 08/09/10 PAST SURGICAL HISTORY OF 1997 arthroscopic lt knee surg PAST SURGICAL HISTORY OF 1999 Rt foot great toe fusion TONSILLECTOMY & ADENOIDECTOMY <AGE 11 FAMILY HISTORY Problem Relation Age of Onset Cancer Father lymphoma GI Mother Coronary Artery Disease Brother Ischemic Heart Disease Mother Social History Tobacco Use Smoking status: Former Years: 1 Types: Cigarettes Smokeless tobacco: Never Tobacco comments: Quit 1975 1-2 cig daily on the weekends Substance Use Topics Alcohol use: Yes Comment: rarely Drug use: No Reviewed current medications, allergies, past medical history, surgical history, family history andsocial history today. REVIEW OF SYSTEMS All other reviewed and negative other than HPI. HEALTH MAINTENANCE: Reviewed health maintenance issues today and recommended the following in detail. RSV Vaccine(1 - 1-dose 60+ series) Never done DTaP,Tdap,Td Vaccine(1 - Tdap) due on 07/21/2014 Advance Directive Discussion due on 06/23/2023 HbA1C due on 10/03/2023 Diabetic Foot Exam due on 09/27/2023 VITALS: BP 132/58 Pulse 75 Ht 177.8 cm (5' 10") Wt 91.6 kg (202 lb) SpO2 98% BMI 28.98 kg/m Last 4 Encounter Wt Readings: Date: Wt: 10/03/2023 91.6 kg (202 lb) 04/02/2023 92.1 kg (203 lb) 12/26/2022 95.5 kg (210 lb 9.6 oz) 09/26/2022 96.1 kg (211 lb 12.8 oz) PHYSICAL EXAMINATION: General appearance: Well appearing, alert, in no acute distress, well-hydrated, well nourished. Skin: Skin color, texture, turgor normal, no suspicious rashes or lesions Head: Normocephalic, no masses, lesions, tenderness or abnormalities Lungs: Lungs clear to auscultation. No wheezing, rhonchi, rales Heart: RRR without murmur, gallop, or rubs. No ectopy Abdomen: Normal abdominal exam, Abdomen soft, non-tender. Bowel sounds normal. No masses, organomegaly Extremities: No deformities, edema, skin discoloration, clubbing or cyanosis. Good capillary refill. Neuro: Negative. ASSESSMENT/PLAN: 1. Type 2 diabetes mellitus without complication, without long-term current use of insulin (HCC) - ICD9: 250.00, ICD10: E11.9 (primary diagnosis) - Controlled - Continue current medications Check labs. 2. History of skin cancer - ICD9: V10.83, ICD10: Z85.828 -sees derm 3. Paroxysmal atrial fibrillation (HCC) - ICD9: 427.31, ICD10: I48.0 - stable. 4. Mixed hyperlipidemia - ICD9: 272.2, ICD10: E78.2 - Controlled - Continue current medications 5. Essential hypertension - ICD9: 401.9, ICD10: I10 - Controlled - Continue current medications 6. Bilateral carotid artery stenosis - ICD9: 433.10, 433.30, ICD10: I65.23 - cardiology manages. 7. Chronic depression - ICD9: 311, ICD10: F32.A - added zoloft. Follow up in one month or prn. 8. Anxiety state - ICD9: 300.00, ICD10: F41.1 -as above. 9. Reactive depression - ICD9: 300.4, ICD10: F32.9 - as above. Enrrique Carmona RTO in one month and prn. documented [facility]24 Miscellaneous Notes* Telephone Encounter - Veronica GalvezDEIDRA - 09/22/2023 9:08 AM EDT Patient Fleck - The Bigger Picturehart message requesting the following refill Refill(s) Requested: Requested Prescriptions Pending Prescriptions Disp Refills LORazepam (ATIVAN) 0.5 mg 60 tablet 1 Sig: Take 0.5 tablets by mouth two times a day for 90 days. ALLERGIES Allergen Reactions Cephalosporins Rash Doxycycline Rash photosensitivity dermatitis (home) [phone] (cell) Last Office Visit Date: 04/02/2023 Last Distance Health Visit: Visit date not found Future Appointment: 10/03/2023 The patients preferred pharmacy has been captured for this encounter? yes Request is for script(s) to be escript to pharmacy. Veronica Galvez LPN documented in this encounterMi[facility]02-22-2024 Miscellaneous Notes* Telephone Encounter - Elizabeth Marsh LPN - 08/14/2023 12:26 PM EST Patient has been identified by name and date of : Yes Requested Prescriptions Pending Prescriptions Disp Refills amLODIPine (NORVASC) 10 mg tablet 90 tablet 1 Sig: Take 1 tablet by mouth once daily. RX INSTRUCTIONS: Patient aware RX will be sent to pharmacy. No need to notify patient. LC 04/02/23 Scheduled 10/03/23 Elizabeth Marsh LPN documented in this encounterMi[facility]11-01-2023 Hospital Discharge instructions Additional Instructions Your work-up today showed no acute findings and your heart rhythm is at her baseline which is atrial fibrillation but rate is controlled. I do feel your symptoms are related to acute anxiety based on the situation that has occurred this evening. You may take your home lorazepam as directed to help control any further anxiety symptoms and if necessary you may add [id number] Benadryl. If you feel that your heart is racing and persistently elevated at a value of approximately 150 or you have difficulty standing or walking or any further concerns please return to the ER for repeat evaluation.[facility] Work Phone: [phone]) 554-629310-11-2023 History of Present illness Narrative* Enrrique Carmona MD - 04/02/2023 10:27 AM EDT Patient presents with: 6 Month Exam HPI: Patient presents today for office visit for follow up. HTN: Taking medication as ordered now. Denies chest pain and shortness of breath. Does not take lasix routinely. Does feel run down and tired but attributes this to taking care of his . Lipids: Due to check lipids. Last saw cardio in November unsure when he is scheduled to see them next. Diabetes: Does not check glucose at home. Is taking his metformin now. No issues with feet. Does not wear diabetic shoes. Saw Emre Valdez and had some skin cancer removed from scalp. Saw Dr Vazquez in [place]. His daughter wonders if he has long covid. Has some mild lightheadedness and brain fog since. Offered recover referral if he desires. Discussed that there currently is no definite treatment. No bleeding or bruising issues. Still uses lorazepam prn. Have discussed risks in detail. No hx of misuse or abuse Discussed caregiver burnout with caring for his . MEDICATIONS: Current Outpatient Medications Medication Sig allopurinol (ZYLOPRIM) 100 mg tablet Take 1 tablet by mouth once daily. amLODIPine (NORVASC) 10 mg tablet Take 1 tablet by mouth once daily. aspirin, enteric coated (ASPIRIN, ENTERIC COATED) 81 mg EC tablet Take 81 mg by mouth two times a week. atorvastatin (LIPITOR) 20 mg tablet Take 1 tablet by mouth daily at bedtime. For cholesterol. carvedilol (COREG) 3.125 mg tablet Take 3.125 mg by mouth twice daily with meals. Cholecalciferol, Vitamin D3, 2,000 unit cap Take 1 tablet by mouth once daily. cloNIDine HCl (CATAPRES) 0.1 mg tablet Take 1 tablet by mouth once daily. furosemide (LASIX) 20 mg tablet Take 1 tablet by mouth once daily. lisinopril (ZESTRIL) 40 mg tablet Take 1 tablet by mouth once daily. LORazepam (ATIVAN) 0.5 mg Take 0.5 tablets by mouth twice daily for 90 days. metFORMIN ER (GLUCOPHAGE XR) 500 mg 24 hr tablet Take 1 tablet by mouth daily with breakfast. rivaroxaban (XARELTO) 20 mg tablet Take 20 mg by mouth daily with dinner. triamcinolone (KENALOG) 0.025 % ointment Apply to affected area three times daily. No current facility-administered medications for this visit. ALLERGIES: ALLERGIES Allergen Reactions Cephalosporins Rash Doxycycline Rash photosensitivity dermatitis PAST MEDICAL HISTORY Diagnosis Date Anxiety state, unspecified Benign neoplasm of colon Carotid stenosis Depressive disorder, not elsewhere classified Diverticulosis of colon (without mention of hemorrhage) DM (diabetes mellitus) (HCC) Gout Hearing loss wears hearing aids Hypertrophy of prostate without urinary obstruction and other lower urinary tract symptoms (LUTS) Impotence of organic origin Obesity, unspecified Other and unspecified hyperlipidemia Personal history of colonic polyps Skin cancer, basal cell [employer] [place] Unspecified essential hypertension PAST SURGICAL HISTORY Procedure Laterality Date CARDIAC CATH 01/16/2017 CARDIOVERSION 2017 COLONOSCOPY FLX DX W/COLLJ SPEC WHEN PFRMD 03/03/2014 Colonoscopy COLONOSCOPY FLX DX W/COLLJ SPEC WHEN PFRMD 05/31/2019 Colonoscopy COLSC FLX W/RMVL OF TUMOR POLYP LESION SNARE TQ 05/27/07 COLSC FLX W/RMVL OF TUMOR POLYP LESION SNARE TQ 08/09/10 PAST SURGICAL HISTORY OF 1997 arthroscopic lt knee surg PAST SURGICAL HISTORY OF 1999 Rt foot great toe fusion TONSILLECTOMY & ADENOIDECTOMY <AGE 11 FAMILY HISTORY Problem Relation Age of Onset Cancer Father lymphoma GI Mother Coronary Artery Disease Brother Ischemic Heart Disease Mother Social History Tobacco Use Smoking status: Former Years: 1 Types: Cigarettes Smokeless tobacco: Never Tobacco comments: Quit 1975 1-2 cig daily on the weekends Substance Use Topics Alcohol use: Yes Comment: rarely Drug use: No Reviewed current medications, allergies, past medical history, surgical history, family history andsocial history today. REVIEW OF SYSTEMS Has lost a little weight. Has decreased his food intake. All other reviewed and negative other than HPI. HEALTH MAINTENANCE: Reviewed health maintenance issues today and recommended the following in detail. Dilated Retinal Exam due-recommended., Covid-19 Vaccine( season) due on 02/21/2023 Urine Albumin:Creatinine Ratio due on 04/29/2023 LDL Cholesterol due on 04/29/2023 VITALS: BP 121/78 Pulse 73 Wt 92.1 kg (203 lb) SpO2 96% BMI 29.13 kg/m Last 4 Encounter Wt Readings: Date: Wt: 12/26/2022 95.5 kg (210 lb 9.6 oz) 09/26/2022 96.1 kg (211 lb 12.8 oz) 03/28/2022 98.9 kg (218 lb) 03/05/2022 99.8 kg (220 lb) PHYSICAL EXAMINATION: General appearance: Well appearing, alert, in no acute distress, well-hydrated, well nourished. Skin: Skin color, texture, turgor normal, no suspicious rashes or lesions Head: Normocephalic, no masses, lesions, tenderness or abnormalities Neck: Supple, no adenopathy; thyroid symmetric, normal size, no bruits Lungs: Lungs clear to auscultation. No wheezing, rhonchi, rales Heart: RRR without murmur, gallop, or rubs. No ectopy Abdomen: Normal abdominal exam, Abdomen soft, non-tender. Bowel sounds normal. No masses, organomegaly Extremities: No deformities, edema, skin discoloration, clubbing or cyanosis. Good capillary refill. Musculoskeletal: No joint swelling, deformity, or tenderness ASSESSMENT/PLAN: 1. Type 2 diabetes mellitus without complication, without long-term current use of insulin (HCC) - ICD9: 250.00, ICD10: E11.9 (primary diagnosis) - Controlled - Continue current medications - ALBUMIN/CREAT RATIO RND UR - LIPID PANEL BASIC - CBC + DIFF - COMP METABOLIC PANEL - HGB A1C 2. Mixed hyperlipidemia - ICD9: 272.2, ICD10: E78.2 - Controlled - Continue current medications - Counseled on healthy diet and regular exercise - ATORVASTATIN 20 MG TABLET 3. Paroxysmal atrial fibrillation (HCC) - ICD9: 427.31, ICD10: I48.0 - stable. 4. Essential hypertension - ICD9: 401.9, ICD10: I10 - Controlled - Continue current medications 5. History of skin cancer - ICD9: V10.83, ICD10: Z85.828 - per derm. 6. Chronic depression - ICD9: 311, ICD10: F32.A - discussed getting relief for himself at home periodically. 7. Bilateral carotid artery stenosis - ICD9: 433.10, 433.30, ICD10: I65.23 - per cardiology Enrrique Carmona RTO in six months and prn. documented [facility] encounter[facility]08-25-2023 Miscellaneous Notes* Telephone Encounter - Elizabeth Marsh LPN - 02/14/2023 9:10 AM EDT Faxed back as requested. * Telephone Encounter - Vianney Grissom LPN - 02/14/2023 8:27 AM EDT Type of form: Medical Clearance for Dental Treatment Form received via fax When form is completed, Fax form to [facility] [phone] Form has been forwarded to Physician Desk: Dr. Kristine Grissom LPN documented in this encounterMi[facility]08-14-2023 Miscellaneous Notes* Telephone Encounter - Basilio Suarez LPN - 02/03/2023 8:24 AM EDT Patient phones requesting refills as follows: Requested Prescriptions Pending Prescriptions Disp Refills LORazepam (ATIVAN) 0.5 mg 60 tablet 1 Sig: Take 0.5 tablets by mouth twice daily for 90 days. LC 09/26/22 NOV 04/02/23 Please review and advise. Basilio Suarez LPN documented in this encounterMi[facility]07-06-2023 Instructions* Patient Instructions* Melissa Shelton APRN.CANDLES POURER - 12/26/2022 11:44 AM EDT NONSPECIFIC RASH: Our exam shows you have a rash which has no clear cause. Rashes can result from infections, allergies, or irritation of the skin by chemicals or other environmental factors. Rashes can also result from scratching or rubbing the skin too much to relieve itching. Further medical examination may be needed to identify the specific cause and proper treatment of your skin rash. You should treat your rash as recommended by your doctor. If you have itching, you should avoid scratching as much as possible, as this further damages the skin. Ask your doctor or pharmacist if you have any questions about what topical medicines may help relieve your symptoms. Call your doctor right away if your rash is not better in 2-3 days, if it worsens, or if there are signs of infection (increased pain, redness, drainage or pus). documented in this encounterMi[facility]07-06-2023 History of Present illness Narrative* Melissa Shelton APRN.GEMA - 12/26/2022 11:37 AM EDT This note was created using [employer]. Subjective April Quesada is a 82 year old male. 82 year old male with PMH HTN, hyperlipidemia, DM and gout presents for rash on hands. Acute onset one week ago Bilateral palms. Raised, burning and itching Denies fever or chills Denies malaise or achiness Denies new lotions, soaps or medicines. Utilized flagyl cream Sprayed solar aj without relief The history is provided by the patient. No full time staff interpreter was used. Rash This is a new problem. The current episode started in the past 7 days. The problem is unchanged. Location: bilateral gibbs hands. The rash is characterized by pain, itchiness, burning and dryness. He was exposed to nothing. Pertinent negatives include no anorexia, congestion, cough, diarrhea, eye pain, facial edema, fatigue, fever, joint pain, nail changes, rhinorrhea, shortness of breath, sore throat or vomiting. Past treatments include nothing. The treatment provided no relief. There is no history of allergies, asthma, eczema or varicella. PAST MEDICAL HISTORY Diagnosis Date Anxiety state, unspecified Benign neoplasm of colon Carotid stenosis Depressive disorder, not elsewhere classified Diverticulosis of colon (without mention of hemorrhage) DM (diabetes mellitus) (HCC) Gout Hearing loss wears hearing aids Hypertrophy of prostate without urinary obstruction and other lower urinary tract symptoms (LUTS) Impotence of organic origin Obesity, unspecified Other and unspecified hyperlipidemia Personal history of colonic polyps Skin cancer, basal cell [employer] [place] Unspecified essential hypertension PAST SURGICAL HISTORY Procedure Laterality Date CARDIAC CATH 01/16/2017 CARDIOVERSION 2017 COLONOSCOPY FLX DX W/COLLJ SPEC WHEN PFRMD 03/03/2014 Colonoscopy COLONOSCOPY FLX DX W/COLLJ SPEC WHEN PFRMD 05/31/2019 Colonoscopy COLSC FLX W/RMVL OF TUMOR POLYP LESION SNARE TQ 05/27/07 COLSC FLX W/RMVL OF TUMOR POLYP LESION SNARE TQ 08/09/10 PAST SURGICAL HISTORY OF 1997 arthroscopic lt knee surg PAST SURGICAL HISTORY OF 1999 Rt foot great toe fusion TONSILLECTOMY & ADENOIDECTOMY <AGE 11 ALLERGIES Cephalosporins and Doxycycline MEDICATIONS triamcinolone (KENALOG) 0.025 % ointment Apply to affected area three times daily. mupirocin (BACTROBAN) 2 % cream Apply 1 application to affected area three times daily for 10 days.Location: bilateral hands metFORMIN ER (GLUCOPHAGE XR) 500 mg 24 hr tablet Take 1 tablet by mouth daily with breakfast. furosemide (LASIX) 20 mg tablet Take 1 tablet by mouth once daily. amLODIPine (NORVASC) 10 mg tablet Take 1 tablet by mouth once daily. cloNIDine HCl (CATAPRES) 0.1 mg tablet Take 1 tablet by mouth once daily. lisinopril (ZESTRIL, PRINIVIL) 40 mg tablet Take 1 tablet by mouth once daily. atorvastatin (LIPITOR) 20 mg tablet Take 1 tablet by mouth daily at bedtime. For cholesterol. allopurinol (ZYLOPRIM) 100 mg tablet Take 1 tablet by mouth once daily. carvedilol (COREG) 3.125 mg tablet Take 3.125 mg by mouth twice daily with meals. rivaroxaban (XARELTO) 20 mg tablet Take 20 mg by mouth daily with dinner. aspirin, enteric coated (ASPIRIN, ENTERIC COATED) 81 mg EC tablet Take 81 mg by mouth two times a week. Cholecalciferol, Vitamin D3, 2,000 unit cap Take 1 tablet by mouth once daily. FAMILY HISTORY Problem Relation Age of Onset Cancer Father lymphoma GI Mother Coronary Artery Disease Brother Ischemic Heart Disease Mother Social History Tobacco Use Smoking status: Former Years: 1.00 Types: Cigarettes Smokeless tobacco: Never Tobacco comments: Quit 1975 1-2 cig daily on the weekends Substance Use Topics Alcohol use: Yes Comment: rarely Drug use: No Review of Systems Constitutional: Negative for fatigue and fever. HENT: Negative for congestion, rhinorrhea and sore throat. Eyes: Negative for pain. Respiratory: Negative for cough and shortness of breath. Cardiovascular: Negative for chest pain, palpitations and leg swelling. Gastrointestinal: Negative for anorexia, diarrhea and vomiting. Musculoskeletal: Negative for arthralgias, back pain and joint pain. Skin: Positive for rash. Negative for color change, nail changes and pallor. Allergic/Immunologic: Negative for environmental allergies, food allergies and immunocompromised state. Hematological: Negative for adenopathy. Does not bruise/bleed easily. Psychiatric/Behavioral: Negative for agitation and behavioral problems. Objective BP 122/80 Pulse 96 Temp 36.2 C (97.1 F) Resp 18 Wt 95.5 kg (210 lb 9.6 oz) SpO2 96% BMI30.22 kg/m Physical Exam Vitals and nursing note reviewed. Constitutional: General: He is not in acute distress. Appearance: Normal appearance. He is not ill-appearing, toxic-appearing or diaphoretic. HENT: Head: Normocephalic and atraumatic. Right Ear: External ear normal. Left Ear: External ear normal. Nose: Nose normal. No congestion or rhinorrhea. Mouth/Throat: Mouth: Mucous membranes are moist. Pharynx: Oropharynx is clear. No oropharyngeal exudate or posterior oropharyngeal erythema. Eyes: General: Right eye: No discharge. Left eye: No discharge. Extraocular Movements: Extraocular movements intact. Conjunctiva/sclera: Conjunctivae normal. Pupils: Pupils are equal, round, and reactive to light. Cardiovascular: Rate and Rhythm: Normal rate and regular rhythm. Pulses: Normal pulses. Heart sounds: Normal heart sounds. No murmur heard. No friction rub. No gallop. Pulmonary: Effort: Pulmonary effort is normal. No respiratory distress. Breath sounds: Normal breath sounds. No stridor. No wheezing, rhonchi or rales. Chest: Chest wall: No tenderness. Abdominal: General: Abdomen is flat. There is no distension. Palpations: Abdomen is soft. There is no mass. Tenderness: There is no abdominal tenderness. There is no guarding or rebound. Hernia: No hernia is present. Musculoskeletal: General: No swelling, tenderness, deformity or signs of injury. Normal range of motion. Cervical back: Normal range of motion and neck supple. No rigidity or tenderness. Right lower leg: No edema. Left lower leg: No edema. Lymphadenopathy: Cervical: No cervical adenopathy. Skin: General: Skin is warm and dry. Capillary Refill: Capillary refill takes less than 2 seconds. Coloration: Skin is not jaundiced or pale. Findings: Erythema and rash present. No bruising or lesion. Comments: Left palm hand with raised pruritic macupapular rash. Smaller similar area to right palm hand Neurological: General: No focal deficit present. Mental Status: He is alert and oriented to person, place, and time. Cranial Nerves: No cranial nerve deficit. Sensory: No sensory deficit. Motor: No weakness. Coordination: Coordination normal. Gait: Gait normal. Deep Tendon Reflexes: Reflexes normal. Psychiatric: Mood and Affect: Mood normal. Behavior: Behavior normal. Thought Content: Thought content normal. Assessment and Plan ASSESSMENT/PLAN: 1. Rash - ICD9: 782.1, ICD10: R21 X 1 week Burning and itching Has used Flagyl and OTC spray No red flags Unsure of exact etiology Considered syphilis (denies concerns for STI and less likely given itching and burning), herpes zoster (unlikely given bilateral hands and states not similar to prior outbreaks) RX Kenalog cream and topical Mupirocin cream Melissa Shelton APRN.CANDLES POURER documented in this encounterMi[facility]05-10-2023 Miscellaneous Notes* Telephone Encounter - Ruth Meeks LPN - 10/30/2022 12:21 PM EDT Patient phones requesting refills as follows: Requested Prescriptions Pending Prescriptions Disp Refills metFORMIN ER (GLUCOPHAGE XR) 500 mg 24 hr tablet 30 tablet 11 Sig: Take 1 tablet by mouth daily with breakfast. LC 09/26/2022 NOV 04/02/2023 Please review and advise. Ruth Meeks LPN documented in this encounterMi[facility]04-07-2023 Miscellaneous Notes* Telephone Encounter - Elizabeth Marsh LPN - 09/27/2022 9:41 AM EDT Patient notified and verbalizes understanding. * Telephone Encounter - Enrrique Carmona MD - 09/27/2022 9:31 AM EDT His sugars are much worse and he is much higher. Again, he is not a "borderline diabetic". He is diabetic with an a1c of 7.7 and needs to take his meds. Recheck a1c in three months. documented in this encounterMi[facility]04-06-2023 History of Present illness Narrative* Enrrique Carmona MD - 09/26/2022 10:49 AM EDT Patient presents with: Follow Up: 6 month HPI: Patient presents today for office visit for follow up. Has again stopped his metformin. He did not believe he was a diabetic. We again had a bakari discussion about his noncompliance and the risks it poses. We have discussed this multiple times. He also has not been taking his furosemide regularly and takes it periodically. We again discussed that. Uses lorazepam prn. No misuse or abuse. Oarrs done. Sees cardiology. No chest pain or shortness of breath. No edema. No bleeding issues. No dizziness. No syncope. No gout issues. Still has stress with caring for his with dementia at home. Does not check his sugars. No polyuria or polydipsia. No skin issues. Still seeing Emre valdez MEDICATIONS: Current Outpatient Medications Medication Sig amLODIPine (NORVASC) 10 mg tablet Take 1 tablet by mouth once daily. cloNIDine HCl (CATAPRES) 0.1 mg tablet Take 1 tablet by mouth once daily. lisinopril (ZESTRIL, PRINIVIL) 40 mg tablet Take 1 tablet by mouth once daily. atorvastatin (LIPITOR) 20 mg tablet Take 1 tablet by mouth daily at bedtime. For cholesterol. allopurinol (ZYLOPRIM) 100 mg tablet Take 1 tablet by mouth once daily. carvedilol (COREG) 3.125 mg tablet Take 3.125 mg by mouth twice daily with meals. rivaroxaban (XARELTO) 20 mg tablet Take 20 mg by mouth daily with dinner. aspirin, enteric coated (ASPIRIN, ENTERIC COATED) 81 mg EC tablet Take 81 mg by mouth two times a week. Cholecalciferol, Vitamin D3, 2,000 unit cap Take 1 tablet by mouth once daily. metFORMIN ER (GLUCOPHAGE XR) 500 mg 24 hr tablet Take 1 tablet by mouth daily with breakfast. (Patient not taking: Reported on 09/26/2022) furosemide (LASIX) 20 mg tablet Take 1 tablet by mouth once daily. (Patient taking differently: Take 20 mg by mouth once daily. Patient reports takes more as needed d/t doesn't like the frequent urination.) No current facility-administered medications for this visit. ALLERGIES: ALLERGIES Allergen Reactions Cephalosporins Rash Doxycycline Rash photosensitivity dermatitis PAST MEDICAL HISTORY Diagnosis Date Anxiety state, unspecified Benign neoplasm of colon Carotid stenosis Depressive disorder, not elsewhere classified Diverticulosis of colon (without mention of hemorrhage) DM (diabetes mellitus) (HCC) Gout Hearing loss wears hearing aids Hypertrophy of prostate without urinary obstruction and other lower urinary tract symptoms (LUTS) Impotence of organic origin Obesity, unspecified Other and unspecified hyperlipidemia Personal history of colonic polyps Skin cancer, basal cell [employer] [place] Unspecified essential hypertension PAST SURGICAL HISTORY Procedure Laterality Date CARDIAC CATH 01/16/2017 CARDIOVERSION 2016 COLONOSCOPY FLX DX W/COLLJ SPEC WHEN PFRMD 03/03/2014 Colonoscopy COLONOSCOPY FLX DX W/COLLJ SPEC WHEN PFRMD 05/31/2019 Colonoscopy COLSC FLX W/RMVL OF TUMOR POLYP LESION SNARE TQ 05/27/07 COLSC FLX W/RMVL OF TUMOR POLYP LESION SNARE TQ 08/09/10 PAST SURGICAL HISTORY OF 1997 arthroscopic lt knee surg PAST SURGICAL HISTORY OF 1999 Rt foot great toe fusion TONSILLECTOMY & ADENOIDECTOMY <AGE 11 FAMILY HISTORY Problem Relation Age of Onset Cancer Father lymphoma GI Mother Coronary Artery Disease Brother Ischemic Heart Disease Mother Social History Tobacco Use Smoking status: Former Years: 1.00 Types: Cigarettes Smokeless tobacco: Never Tobacco comments: Quit 1975 1-2 cig daily on the weekends Substance Use Topics Alcohol use: Yes Comment: rarely Drug use: No Reviewed current medications, allergies, past medical history, surgical history, family history andsocial history today. REVIEW OF SYSTEMS No gi or gu issues. All other reviewed and negative other than HPI. HEALTH MAINTENANCE: Reviewed health maintenance issues today and recommended the following in detail. DTAP,TDAP,TD(1 - Tdap) due on 07/21/2014 COVID-19 VACCINE(3 - Booster for Pfizer series) due on 11/09/2020 DILATED RETINAL EXAM - done six months ago. ADVANCE DIRECTIVE DISCUSSION - has dpoa-see problem list. DIABETIC FOOT EXAM due on 09/24/2022 VITALS: BP 124/68 Pulse 80 Resp 16 Wt 96.1 kg (211 lb 12.8 oz) SpO2 97% BMI 30.39 kg/m Last 4 Encounter Wt Readings: Date: Wt: 09/26/2022 96.1 kg (211 lb 12.8 oz) 03/28/2022 98.9 kg (218 lb) 03/05/2022 99.8 kg (220 lb) 09/24/2021 98.9 kg (218 lb) PHYSICAL EXAMINATION: General appearance: Well appearing, alert, in no acute distress, well-hydrated, well nourished. Skin: Skin color, texture, turgor normal, no suspicious rashes or lesions Head: Normocephalic, no masses, lesions, tenderness or abnormalities Lungs: Lungs clear to auscultation. No wheezing, rhonchi, rales Heart: RRR without murmur, gallop, or rubs. No ectopy Abdomen: Normal abdominal exam, Abdomen soft, non-tender. Bowel sounds normal. No masses, organomegaly Extremities: No deformities, edema, skin discoloration, clubbing or cyanosis. Good capillary refill. Musculoskeletal: No joint swelling, deformity, or tenderness Feet:Shoes and socks removed, No deformities, ulcers, calluses, normal distal pulses, and not sensitive to monofilament bilaterally. ASSESSMENT/PLAN: 1. Essential hypertension - ICD9: 401.9, ICD10: I10 (primary diagnosis) - Continue current medication(s) - Goal of BP <130/80 2. Congestive heart failure, unspecified HF chronicity, unspecified heart failure type (HCC) - ICD9: 428.0, ICD10: I50.9 - weight is down. He is trying to lose weight. - FUROSEMIDE 20 MG TABLET 3. Type 2 diabetes mellitus without complication, without long-term current use of insulin (HCC) - ICD9: 250.00, ICD10: E11.9 - check meds. Encouraged med compliance. 4. Paroxysmal atrial fibrillation (HCC) - ICD9: 427.31, ICD10: I48.0 - stable. 5. Mixed hyperlipidemia - ICD9: 272.2, ICD10: E78.2 - good control - Continue current medication. 6. Gout with manifestations - ICD9: 274.89, ICD10: M10.9 - doing well. 7. Anxiety state - ICD9: 300.00, ICD10: F41.1 - continue meds. 8. Noncompliance - ICD9: V15.81, ICD10: Z91.199 - encouraged med compliance. Discussed risks of noncompliance of meds. Enrrique Carmona MD RTO in six months [facility] Miscellaneous Notes* Telephone Encounter - Vianney Grissom LPN - 09/03/2022 10:31 AM EDT Patient has been identified by name and date of : Yes Patient phones for refill(s): Requested Prescriptions Pending Prescriptions Disp Refills amLODIPine (NORVASC) 10 mg tablet 90 tablet 1 Sig: Take 1 tablet by mouth once daily. Date of last office visit in primary care: 03/28/2022 Next appointment scheduled 09/26/2022 Please advise. Thank you. Vianney Grissom LPN [facility] Miscellaneous Notes* Telephone Encounter - Marco Antonio Yung APRN.CNP - 08/06/2022 3:24 PM EST The following approved medication requests have been transmitted electronically. Requested Prescriptions Pending Prescriptions Disp Refills cloNIDine HCl (CATAPRES) 0.1 mg tablet 60 tablet 5 Sig: Take 1 tablet by mouth once daily. Marco Antonio Yung APRN.CNP * Telephone Encounter - Sury Yeager LPN - 08/06/2022 3:13 PM EST Patient has been identified by name and date of : Yes, Provider Dr. Carmona Date 08/06/22 Time 3:13 pm Patient phones for refill(s): Requested Prescriptions Pending Prescriptions Disp Refills cloNIDine HCl (CATAPRES) 0.1 mg tablet 60 tablet 1 Sig: Take 1 tablet by mouth once daily. Date of last office visit in primary care: 03/29/22 nex tapt 09/26/22 Last 2 Encounter Wt Readings: Date: Wt: 03/28/2022 98.9 kg (218 lb) 03/05/2022 99.8 kg (220 lb) Previous labs/tests for medication: Not applicable Thank you. Sury Yeager LPN [facility] Miscellaneous Notes* Telephone Encounter - Anne Marie Schreiber Ma - 05/02/2022 4:22 PM EST Pt notified that we've attempted to reach him by phone x 2 without success. Sent [facility] message with information below. To call if questions. Anne Marie Schreiber Ma * Telephone Encounter - Basilio Suarez LPN - 05/01/2022 11:45 AM EST Phone rings, no answer, unable to leave message. Basilio Suarez LPN * Telephone Encounter - Elizabeth Marsh LPN - 04/29/2022 10:03 AM EST Phone rings with no answer. * Telephone Encounter - Enrrique Carmona MD - 04/29/2022 9:40 AM EST Bp is great. Tell him not to stop them. * Telephone Encounter - Amelia De La Cruz LPN - 04/29/2022 9:38 AM EST Manual Readin/67 Pulse: 65 Reason for blood pressure check - Last BP elevated Patient is: Taking medication as prescribed Yes Took medication today Yes If no, date medication last taken N/A Experiencing side effects No BP was elevated at last appt 03/28/22. He had not been taking all of his medications at that time. Has since been doing so with the help of his daughter. Denies any chest pain, shortness of breath, dizziness, or headaches. Daily caffeine use. Past personal history of tobacco use; no current exposure. Alert and oriented. Pt has been identified by name and birthdate: Yes Allergies reviewed: Yes Latex allergy: no. Medication - prescribed and OTC reviewed and updated: Yes Do you need any prescription refills prior to your next visit: No Health Maintenance: Reviewed and not up to date and provider notified Patient advised to continue with current medications and would be contacted if any further instructions after review by PCP. Amelia De La Cruz LPN [facility] Instructions* Patient Instructions* Enrrique Carmona MD - 03/29/2022 5:16 PM EDT Fact Sheet for Patients And Caregivers Emergency Use Authorization (EUA) Of Molnupiravir For Coronavirus Disease 2019 (COVID-19) What is the most important information I should know about molnupiravir? Molnupiravir may cause serious side effects, including: Molnupiravir may cause harm to your unborn baby. It is not known if molnupiravir will harm your baby if you take molnupiravir during . Molnupiravir is not recommended for use in . Molnupiravir has not been studied in . Molnupiravir was studied in animals only. When molnupiravir was given to animals, molnupiravir caused harm to their unborn babies. You and your healthcare provider may decide that you should take molnupiravir during if there are no other COVID-19 treatment options authorized by the FDA that are accessible or clinicallyappropriate for you. If you and your healthcare provider decide that you should take molnupiravir during , you and your healthcare provider should discuss the known and potential benefits and the potential risksof taking molnupiravir during . For individuals who are able to become : You should use a reliable method of control (contraception) consistently and correctly duringtreatment with molnupiravir and for 4 days after the last dose of molnupiravir. Talk to your healthcare provider about reliable control methods. Before starting treatment with molnupiravir your healthcare provider may do a test to seeif you are before starting treatment with molnupiravir. Tell your healthcare provider right away if you become or think you may be duringtreatment with molnupiravir. Surveillance Program: There is a surveillance program for individuals who take molnupiravir during . The purpose of this program is to collect information about the health of you and your baby. Talk to your healthcare provider about how to take part in this program. If you take molnupiravir during and you agree to participate in the surveillance program and allow your healthcare provider to share your information with [employer],then your healthcare provider will report your use of molnupiravir during to [employer]. by calling or [email or web address]. For individuals who are sexually active with partners who are able to become : It is not known if molnupiravir can affect sperm. While the risk is regarded as low, animal studies to fully assess the potential for molnupiravir to affect the babies of males treated with molnupiravir have not been completed. A reliable method of control (contraception) should be used consistently and correctly during treatment with molnupiravir and for at least 3 months after thelast dose. The risk to sperm beyond 3 months is not known. Studies to understand the risk to sperm beyond 3 months are ongoing. Talk to your healthcare provider about reliable control methods. Talk to your healthcare provider if you have questions or concerns about how molnupiravir may affectsperm. You are being given this fact sheet because your healthcare provider believes it is necessary to provide you with molnupiravir for the treatment of adults with lgqn-dd-rkuuqqod coronavirus disease 2019 (COVID-19) with positive results of direct SARS-CoV-2 viral testing, and who are at high risk forprogressing to severe COVID-19 including hospitalization or , and for whom other COVID-19 treatment options authorized by the FDA are not accessible or clinically appropriate. The [place]. Food and Drug Administration (FDA) has issued an Emergency Use Authorization (EUA) to makemolnupiravir available during the COVID-19 pandemic (for more details about an EUA please see What is an Emergency Use Authorization? at the end of this document). Molnupiravir is not an FDA-approved medicine in the [place]. Read this Fact Sheet for information about molnupiravir. Talk to your healthcare provider about your options if you have any questions. It is your choice to take molnupiravir. What is COVID-19? COVID-19 is caused by a virus called a coronavirus. You can get COVID-19 through close contact withanother person who has the virus. COVID-19 illnesses have ranged from very lepl-cd-utxfiu, including illness resulting in . While information so far suggests that most COVID-19 illness is mild, serious illness can happen and maycause some of your other medical conditions to become worse. Older people and people of all ages with severe, long lasting (chronic) medical conditions like heart disease, lung disease and diabetes, for example seem to be at higher risk of being hospitalized for COVID-19. What is molnupiravir? Molnupiravir is an investigational medicine used to treat fvcf-tf-tihqwcua COVID-19 in adults: with positive results of direct SARS-CoV-2 viral testing, and who are at high risk for progressing to severe COVID-19 including hospitalization or , and for whom other COVID-19 treatment optionsauthorized by the FDA are not accessible or clinically appropriate. The FDA has authorized the emergency use of molnupiravir for the treatment of mild-tomoderate COVID-19 in adults under an EUA. For more information on EUA, see the What is an Emergency Use Authorization (EUA)? section at the end of this Fact Sheet. Molnupiravir is not authorized: for use in people less than 18 years of age. for prevention of COVID-19. for people needing hospitalization for COVID-19. for use for longer than 5 consecutive days. What should I tell my healthcare provider before I take molnupiravir? Tell your healthcare provider if you: Have any allergies Are or plan to breastfeed Have any serious illnesses Are taking any medicines (prescription, zrlh-mdk-gdjrsyk, vitamins, or herbal products). How do I take molnupiravir? Take molnupiravir exactly as your healthcare provider tells you to take it. Take 4 capsules of molnupiravir every 12 hours (for example, at 8 am and at 8 pm) Take molnupiravir for 5 days. It is important that you complete the full 5 days of treatment with molnupiravir. Do not stop taking molnupiravir before you complete the full 5 days of treatment, even if you feel better. Take molnupiravir with or without food. You should stay in isolation for as long as your healthcare provider tells you to. Talk to your healthcare provider if you are not sure about how to properly isolate while you have COVID-19. Swallow molnupiravir capsules whole. Do not open, break, or crush the capsules. If you cannot swallow capsules whole, tell your healthcare provider. What to do if you miss a dose: If it has been less than 10 hours since the missed dose, take it as soon as you remember If it has been more than 10 hours since the missed dose, skip the missed dose and take your dose atthe next scheduled time. Do not double the dose of molnupiravir to make up for a missed dose. What are the important possible side effects of molnupiravir? Possible side effects of molnupiravir are: See, What is the most important information I should know about molnupiravir? diarrhea nausea dizziness These are not all the possible side effects of molnupiravir. Not many people have taken molnupiravir. Serious and unexpected side effects may happen. This medicine is still being studied,so it is possible that all of the risks are not known at this time. What other treatment choices are there? Like molnupiravir, FDA may allow for the emergency use of other medicines to treat people with COVID-19. Go to https://www.fda.gov/xdzyocqyf-snwuuwlptpux-xax-response/uxc-vjmahubacpzdhge-lav- policy-framework/gkkhiercs-zwi-jojucmdxlwpiq for more information. It is your choice to be treated or not to be treated with molnupiravir. Should you decide not to take it, it will not change your standard medical care. What if I am ? is not recommended during treatment with molnupiravir and for 4 days after the last dose of molnupiravir. If you are or plan to breastfeed, talk to your healthcare provider about your options and specific situation before taking molnupiravir. How do I report side effects with molnupiravir? Contact your healthcare provider if you have any side effects that bother you or do not go away. Report side effects to FDA MedWatch at www.fda.gov/medwatch or call 2-075-KCD-5771 ( ). How should I store molnupiravir? Store molnupiravir capsules at room temperature between 68 F to 77 F (20 C to 25 C). Keep molnupiravir and all medicines out of the reach of children and pets. How can I learn more about COVID-19? Ask your healthcare provider. Visit www.cdc.gov/COVID19 Contact your local or state public health department. Call [employer] at (toll free in the [place] Visit www.[employer] What Is an Emergency Use Authorization (EUA)? The [place] FDA has made molnupiravir available under an emergency access mechanism called an Emergency Use Authorization (EUA) The EUA is supported by a [place] of Health and Human Service (HHS) declaration that circumstances exist to justify emergency use of drugs and biological products during the COVID-19 pandemic. Molnupiravir for the treatment of xbfh-at-nfnldsul COVID-19 in adults with positive results of direct SARS-CoV-2 viral testing, who are at high risk for progression to severe COVID-19, including hospitalization or , and for whom alternative COVID-19 treatment options authorized by FDA are not accessible or clinically appropriate, has not undergone the same type of review as an FDA- approved product. In issuing an EUA under the COVID-19 public health emergency, the FDA has determined, among other things, that based on the total amount of scientific evidence available including data from adequate and well-controlled clinical trials, if available, it is reasonable to believe that the product may be effective for diagnosing, treating, or preventing COVID-19, or a serious or life-threatening disease or condition caused by COVID19; that the known and potential benefits of the product, when used to diagnose, treat, or prevent such disease or condition, outweigh the known and potential risks of such product; and that there are no adequate, approved, and available alternatives. All of these criteria must be met to allow for the product to be used in the treatment of patients during the COVID-19 pandemic. The EUA for molnupiravir is in effect for the duration of the COVID-19declaration justifying emergency use of molnupiravir, unless terminated or revoked (after which molnupiravir may no longer be used under the EUA). For patent information: www.Revegy/research/patent Copyright 2020 [employer], [facility] and its affiliates. All rights reserved. [id number] Issued: 06/14/2021 Fact Sheet for Patients And Caregivers Emergency Use Authorization (EUA) Of Molnupiravir For Coronavirus Disease 2019 (COVID-19) What is the most important information I should know about molnupiravir? Molnupiravir may cause serious side effects, including: Molnupiravir may cause harm to your unborn baby. It is not known if molnupiravir will harm your baby if you take molnupiravir during . Molnupiravir is not recommended for use in . Molnupiravir has not been studied in . Molnupiravir was studied in animals only. When molnupiravir was given to animals, molnupiravir caused harm to their unborn babies. You and your healthcare provider may decide that you should take molnupiravir during if there are no other COVID-19 treatment options authorized by the FDA that are accessible or clinicallyappropriate for you. If you and your healthcare provider decide that you should take molnupiravir during , you and your healthcare provider should discuss the known and potential benefits and the potential risksof taking molnupiravir during . For individuals who are able to become : You should use a reliable method of control (contraception) consistently and correctly duringtreatment with molnupiravir and for 4 days after the last dose of molnupiravir. Talk to your healthcare provider about reliable control methods. Before starting treatment with molnupiravir your healthcare provider may do a test to seeif you are before starting treatment with molnupiravir. Tell your healthcare provider right away if you become or think you may be duringtreatment with molnupiravir. Surveillance Program: There is a surveillance program for individuals who take molnupiravir during . The purpose of this program is to collect information about the health of you and your baby. Talk to your healthcare provider about how to take part in this program. If you take molnupiravir during and you agree to participate in the surveillance program and allow your healthcare provider to share your information with [employer],then your healthcare provider will report your use of molnupiravir during to [employer]. by calling or [email or web address]. For individuals who are sexually active with partners who are able to become : It is not known if molnupiravir can affect sperm. While the risk is regarded as low, animal studies to fully assess the potential for molnupiravir to affect the babies of males treated with molnupiravir have not been completed. A reliable method of control (contraception) should be used consistently and correctly during treatment with molnupiravir and for at least 3 months after thelast dose. The risk to sperm beyond 3 months is not known. Studies to understand the risk to sperm beyond 3 months are ongoing. Talk to your healthcare provider about reliable control methods. Talk to your healthcare provider if you have questions or concerns about how molnupiravir may affectsperm. You are being given this fact sheet because your healthcare provider believes it is necessary to provide you with molnupiravir for the treatment of adults with tueq-qg-ppubhqej coronavirus disease 2019 (COVID-19) with positive results of direct SARS-CoV-2 viral testing, and who are at high risk forprogressing to severe COVID-19 including hospitalization or , and for whom other COVID-19 treatment options authorized by the FDA are not accessible or clinically appropriate. The [place]. Food and Drug Administration (FDA) has issued an Emergency Use Authorization (EUA) to makemolnupiravir available during the COVID-19 pandemic (for more details about an EUA please see What is an Emergency Use Authorization? at the end of this document). Molnupiravir is not an FDA-approved medicine in the [place]. Read this Fact Sheet for information about molnupiravir. Talk to your healthcare provider about your options if you have any questions. It is your choice to take molnupiravir. What is COVID-19? COVID-19 is caused by a virus called a coronavirus. You can get COVID-19 through close contact withanother person who has the virus. COVID-19 illnesses have ranged from very osuq-be-tllhdw, including illness resulting in . While information so far suggests that most COVID-19 illness is mild, serious illness can happen and maycause some of your other medical conditions to become worse. Older people and people of all ages with severe, long lasting (chronic) medical conditions like heart disease, lung disease and diabetes, for example seem to be at higher risk of being hospitalized for COVID-19. What is molnupiravir? Molnupiravir is an investigational medicine used to treat mxhf-ad-dfwxwowc COVID-19 in adults: with positive results of direct SARS-CoV-2 viral testing, and who are at high risk for progressing to severe COVID-19 including hospitalization or , and for whom other COVID-19 treatment optionsauthorized by the FDA are not accessible or clinically appropriate. The FDA has authorized the emergency use of molnupiravir for the treatment of mild-tomoderate COVID-19 in adults under an EUA. For more information on EUA, see the What is an Emergency Use Authorization (EUA)? section at the end of this Fact Sheet. Molnupiravir is not authorized: for use in people less than 18 years of age. for prevention of COVID-19. for people needing hospitalization for COVID-19. for use for longer than 5 consecutive days. What should I tell my healthcare provider before I take molnupiravir? Tell your healthcare provider if you: Have any allergies Are or plan to breastfeed Have any serious illnesses Are taking any medicines (prescription, zipw-kok-wfyprol, vitamins, or herbal products). How do I take molnupiravir? Take molnupiravir exactly as your healthcare provider tells you to take it. Take 4 capsules of molnupiravir every 12 hours (for example, at 8 am and at 8 pm) Take molnupiravir for 5 days. It is important that you complete the full 5 days of treatment with molnupiravir. Do not stop taking molnupiravir before you complete the full 5 days of treatment, even if you feel better. Take molnupiravir with or without food. You should stay in isolation for as long as your healthcare provider tells you to. Talk to your healthcare provider if you are not sure about how to properly isolate while you have COVID-19. Swallow molnupiravir capsules whole. Do not open, break, or crush the capsules. If you cannot swallow capsules whole, tell your healthcare provider. What to do if you miss a dose: If it has been less than 10 hours since the missed dose, take it as soon as you remember If it has been more than 10 hours since the missed dose, skip the missed dose and take your dose atthe next scheduled time. Do not double the dose of molnupiravir to make up for a missed dose. What are the important possible side effects of molnupiravir? Possible side effects of molnupiravir are: See, What is the most important information I should know about molnupiravir? diarrhea nausea dizziness These are not all the possible side effects of molnupiravir. Not many people have taken molnupiravir. Serious and unexpected side effects may happen. This medicine is still being studied,so it is possible that all of the risks are not known at this time. What other treatment choices are there? Like molnupiravir, FDA may allow for the emergency use of other medicines to treat people with COVID-19. Go to https://www.fda.gov/zkjotuken-rpubavymaqxz-nqn-response/lkn-qqexxeqvlvsausr-cpu- policy-framework/tfgmlagaa-nwk-hndekclejzrrn for more information. It is your choice to be treated or not to be treated with molnupiravir. Should you decide not to take it, it will not change your standard medical care. What if I am ? is not recommended during treatment with molnupiravir and for 4 days after the last dose of molnupiravir. If you are or plan to breastfeed, talk to your healthcare provider about your options and specific situation before taking molnupiravir. How do I report side effects with molnupiravir? Contact your healthcare provider if you have any side effects that bother you or do not go away. Report side effects to FDA MedWatch at www.fda.gov/medwatch or call 0-121-BVM-2400 ( ). How should I store molnupiravir? Store molnupiravir capsules at room temperature between 68 F to 77 F (20 C to 25 C). Keep molnupiravir and all medicines out of the reach of children and pets. How can I learn more about COVID-19? Ask your healthcare provider. Visit www.cdc.gov/COVID19 Contact your local or state public health department. Call [employer] at (toll free in the [place] Visit wwwElementsLocal What Is an Emergency Use Authorization (EUA)? The [place] FDA has made molnupiravir available under an emergency access mechanism called an Emergency Use Authorization (EUA) The EUA is supported by a [place] of Health and Human Service (HHS) declaration that circumstances exist to justify emergency use of drugs and biological products during the COVID-19 pandemic. Molnupiravir for the treatment of awhe-[id number] COVID-19 in adults with positive results of direct SARS-CoV-2 viral testing, who are at high risk for progression to severe COVID-19, including hospitalization or , and for whom alternative COVID-19 treatment options authorized by FDA are not accessible or clinically appropriate, has not undergone the same type of review as an FDA- approved product. In issuing an EUA under the COVID-19 public health emergency, the FDA has determined, among other things, that based on the total amount of scientific evidence available including data from adequate and well-controlled clinical trials, if available, it is reasonable to believe that the product may be effective for diagnosing, treating, or preventing COVID-19, or a serious or life-threatening disease or condition caused by COVID19; that the known and potential benefits of the product, when used to diagnose, treat, or prevent such disease or condition, outweigh the known and potential risks of such product; and that there are no adequate, approved, and available alternatives. All of these criteria must be met to allow for the product to be used in the treatment of patients during the COVID-19 pandemic. The EUA for molnupiravir is in effect for the duration of the COVID-19declaration justifying emergency use of molnupiravir, unless terminated or revoked (after which molnupiravir may no longer be used under the EUA). For patent information: www.Revegy/research/patent Copyright 2020 [employer] [place], [place] and its affiliates. All rights reserved. [id number] Issued: 06/14/2021 documented [facility] History of Present illness Narrative* Enrrique Carmona MD - 03/29/2022 4:59 PM EDT Patient presents with: Covid Follow Up HPI:This Team Access Model visit is a phone encounter. It required patient- provider interaction forthe medical decision making as documented below. Patient was offered a virtual/telemedicine appointment in lieu of an office visit due to recommendations to reduce patient exposure to COVID-19. Patient is aware of limitations of performing the visit without a face to face visit in the office setting and agrees. Started with symptoms yesterday. Had home test yesterday was positive. Has nausea, weakness, fever Pulse ox has been 93-95. No chest pain Mild cough. Some phlegm. Some nausea No vomiting. No diarrhea. Does have myalgias and fatigue. MEDICATIONS: Current Outpatient Medications Medication Sig cloNIDine HCl (CATAPRES) 0.1 mg tablet Take 1 tablet by mouth once daily. lisinopril (ZESTRIL, PRINIVIL) 40 mg tablet Take 1 tablet by mouth once daily. amLODIPine (NORVASC) 10 mg tablet Take 1 tablet by mouth once daily. LORazepam (ATIVAN) 0.5 mg Take 1 tablet by mouth twice daily as needed for up to 90 days. metFORMIN ER (GLUCOPHAGE XR) 500 mg 24 hr tablet Take 1 tablet by mouth daily with breakfast. atorvastatin (LIPITOR) 20 mg tablet Take 1 tablet by mouth daily at bedtime. For cholesterol. furosemide (LASIX) 20 mg tablet Take 1 tablet by mouth once daily. allopurinol (ZYLOPRIM) 100 mg tablet Take 1 tablet by mouth once daily. carvedilol (COREG) 3.125 mg tablet Take 3.125 mg by mouth twice daily with meals. rivaroxaban (XARELTO) 20 mg tablet Take 20 mg by mouth daily with dinner. aspirin, enteric coated (ASPIRIN, ENTERIC COATED) 81 mg EC tablet Take 81 mg by mouth two times a week. Cholecalciferol, Vitamin D3, 2,000 unit cap Take 1 tablet by mouth once daily. No current facility-administered medications for this visit. ALLERGIES: ALLERGIES Allergen Reactions Cephalosporins Rash Doxycycline Rash photosensitivity dermatitis PAST MEDICAL HISTORY Diagnosis Date Anxiety state, unspecified Benign neoplasm of colon Carotid stenosis Depressive disorder, not elsewhere classified Diverticulosis of colon (without mention of hemorrhage) DM (diabetes mellitus) (HCC) Gout Hearing loss wears hearing aids Hypertrophy of prostate without urinary obstruction and other lower urinary tract symptoms (LUTS) Impotence of organic origin Obesity, unspecified Other and unspecified hyperlipidemia Personal history of colonic polyps Skin cancer, basal cell [facility] [place] Unspecified essential hypertension PAST SURGICAL HISTORY Procedure Laterality Date CARDIAC CATH 01/16/2017 CARDIOVERSION 2016 COLONOSCOPY FLX DX W/COLLJ SPEC WHEN PFRMD 03/03/2014 Colonoscopy COLONOSCOPY FLX DX W/COLLJ SPEC WHEN PFRMD 05/31/2019 Colonoscopy COLSC FLX W/RMVL OF TUMOR POLYP LESION SNARE TQ 05/27/07 COLSC FLX W/RMVL OF TUMOR POLYP LESION SNARE TQ 08/09/10 PAST SURGICAL HISTORY OF 1997 arthroscopic lt knee surg PAST SURGICAL HISTORY OF 1999 Rt foot great toe fusion TONSILLECTOMY & ADENOIDECTOMY <AGE 11 FAMILY HISTORY Problem Relation Age of Onset Cancer Father lymphoma GI Mother Coronary Artery Disease Brother Ischemic Heart Disease Mother Social History Tobacco Use Smoking status: Former Years: 1.00 Types: Cigarettes Smokeless tobacco: Never Tobacco comments: Quit 1975 1-2 cig daily on the weekends Substance Use Topics Alcohol use: Yes Comment: rarely Drug use: No Reviewed current medications, allergies, past medical history, surgical history, family history andsocial history today. REVIEW OF SYSTEMS All other reviewed and negative other than HPI. VITALS: There were no vitals taken for this visit. Last 4 Encounter Wt Readings: Date: Wt: 03/28/2022 98.9 kg (218 lb) 03/05/2022 99.8 kg (220 lb) 09/24/2021 98.9 kg (218 lb) 04/19/2021 98.9 kg (218 lb) PHYSICAL EXAMINATION: Patient is alert and oriented during visit. Answers appropriately. ASSESSMENT/PLAN: 1. COVID-19 - ICD9: 079.89, ICD10: U07.1 - not paxlovid candidate due to med interaction. Discussed risks and benefits of new medication with the patient. Advised them to call if any side effects or questions. - Red flags for re-assessment reviewed with patient in detail. - MOLNUPIRAVIR 200 MG CAPSULE (EUA) Enrrique Carmona MD Molnupiravir Eligibility and Patient Discussion [facility] Formul[facility] Restriction Criteria: Adult outpatients 18 years and older with ALL of the following: [x] Patient has positive SARS-COV-2 viral test (PCR or antigen test) during current illness [x] Patient has symptoms for 5 days or less [x] Not requiring hospitalization at any time for management of COVID-19 [x] Not requiring supplemental oxygen or a change in baseline supplemental oxygen [x] Not utilized for pre-exposure or post-exposure prophylaxis for prevention of COVID-19 [x] Patient is not or lactating [x] Meeting at least one of the criteria for high risk of progression to severe COVID-19: [x] Age over 65 years [] Cancer [] Chronic kidney disease [] Chronic liver disease [] Chronic lung diseases, including cystic fibrosis [] Dementia or other neurological conditions [] Diabetes (type 1 or type 2) [] Disabilities, including Down syndrome and neurodevelopmental disorders [x] Heart conditions [] HIV infection [] Immunocompromised state [] Mental health conditions [] Medical related technological dependence (tracheostomy, gastrostomy, or positive pressure ventilation (not related to COVID) [] Overweight and obesity (BMI greater or equal to 25 for adults) [] Physical inactivity [] Sickle cell disease or thalassemia [] Smoking, current or former [] Solid organ or blood stem cell transplant [] Stroke or cerebrovascular disease [] Substance use disorders [] Tuberculosis [] People from racial and ethnic minority groups Criteria above are met: Yes Date of Positive Test:03/29 Date of Symptom Onset: 107 Patient received COVID vaccine: Yes / status reviewed: Females: [] Patient is not currently and there is no possibility the patient could be (select one of the following): [] test does not need to be confirmed in patients who have undergone permanent sterilization, are currently using an intrauterine system or contraceptive implant, or in whom is not possible. [] Patients not meeting conditions above: assess whether the patient is based on the firstday of the last menstrual period in individuals who have regular menstrual cycles, is using reliable method of contraception correctly and consistently or have had a negative test [] A test is recommended if the individual has irregular menstrual cycles, is unsure of the first day of the last menstrual period or is not using effective contraception correctly and consistently [] Patient is not currently . is not recommended during treatment and for four days after final dose of molnupiravir. [] Females have been advised to use a reliable method of contraception correctly and consistently for the duration of treatment and for four days after the last dose of molnupiravir Males: [] Sexually active male with partner(s) of childbearing potential has been advised to use a reliable method of contraception correctly and consistently for intercourse for the duration of treatment and for three months after the last dose of molnupiravir I have discussed the use of the investigational therapeutic, molnupiravir, for the treatment of mild to moderate COVID-19 and its use under Emergency Use Authorization with the patient. The patient was informed that molnupiravir is not an FDA approved drug and that it is authorized for use under this Emergency Use Authorization. The patient was also informed of the significant knownbenefits and potential risks of molnupiravir, and the extent to which such potential risks and benefits are unknown. The patient was informed that there is mandatory reporting of all medication errors and serious adverse events potentially related to molnupiravir treatment within 7 calendar days from the onset of the event and that events up to 28 days after completion of therapy need to be reported. The discussion included alternatives to receiving molnupiravir, including clinical trials, and potential the risks and benefits of those alternatives. The patient was provided electronically withthe "Fact Sheet for Patients, Parents and Caregivers". The patient was also instructed that in addition to the treatment with molnupiravir, he/she should continue to self-isolate and use infection control measures (e.g., wear mask, isolate, social distance, avoid sharing personal items, clean and disinfect "high touch" surfaces, and frequent handwashing) according to CDC guidelines. The patient stated understanding and gave verbal consent to proceeding with molnupiravir treatment. Enrrique Carmona MD March 29, 2022 5:22 PM I spent 12 minutes in the visit, with more than 50% of the total [id number] time of the visit in counseling / coordination of care. [facility]10[facility] Instructions* Patient Instructions* Enrrique Carmona MD - 03/28/2022 11:00 AM EDT Send me a list of meds you are on so we can verify what you are taking. Please do not stop meds on your own. documented [facility]10[facility] History of Present illness Narrative* Enrrique Carmona MD - 03/28/2022 10:46 AM EDT Patient presents with: Recheck: 6 months Immunizations: Flu vaccination HPI: Patient presents today for office visit for follow up. He is taking his to [facility] for dementia. We had a bakari discussion regarding his meds. He is again not taking some of his medication. HYPERTENSION: DM:no polyuria or polydipsia. HLD: Cardio: still seeing Brenda douglass. Remains on xarelto. No bleeding issues. He is to follow up soon. DERM:still seeing [facility] . No skin lesions PSYCH:oarrs done. Rarely using meds. No issues. See previous ov: Has not been taking metformin or lipitor. Explained why we need to consider meds if labs remain up. See nursing note. Reviewed last heart cath. Had 30%LAD. No cough or wheeze. Has noted it with increased exertion. Resting will help. Noticed it three months ago. Discussed risks and benefits of benzo's. He is willing to stop it He does not want to continue its use after discussion. Does not use daily. No bleeding or bruising issues. Discussed stresses with caring for his . No issues with gout. MEDICATIONS: Current Outpatient Medications Medication Sig lisinopril (ZESTRIL, PRINIVIL) 40 mg tablet Take 1 tablet by mouth once daily. amLODIPine (NORVASC) 10 mg tablet Take 1 tablet by mouth once daily. LORazepam (ATIVAN) 0.5 mg Take 1 tablet by mouth twice daily as needed for up to 90 days. cloNIDine HCl (CATAPRES) 0.1 mg tablet Take 1 tablet by mouth once daily. metFORMIN ER (GLUCOPHAGE XR) 500 mg 24 hr tablet Take 1 tablet by mouth daily with breakfast. atorvastatin (LIPITOR) 20 mg tablet Take 1 tablet by mouth daily at bedtime. For cholesterol. furosemide (LASIX) 20 mg tablet Take 1 tablet by mouth once daily. allopurinol (ZYLOPRIM) 100 mg tablet Take 1 tablet by mouth once daily. carvedilol (COREG) 3.125 mg tablet Take 3.125 mg by mouth twice daily with meals. rivaroxaban (XARELTO) 20 mg tablet Take 20 mg by mouth daily with dinner. aspirin, enteric coated (ASPIRIN, ENTERIC COATED) 81 mg EC tablet Take 81 mg by mouth two times a week. Cholecalciferol, Vitamin D3, 2,000 unit cap Take 1 tablet by mouth once daily. No current facility-administered medications for this visit. ALLERGIES: ALLERGIES Allergen Reactions Cephalosporins Rash Doxycycline Rash photosensitivity dermatitis PAST MEDICAL HISTORY Diagnosis Date Anxiety state, unspecified Benign neoplasm of colon Carotid stenosis Depressive disorder, not elsewhere classified Diverticulosis of colon (without mention of hemorrhage) DM (diabetes mellitus) (HCC) Gout Hearing loss wears hearing aids Hypertrophy of prostate without urinary obstruction and other lower urinary tract symptoms (LUTS) Impotence of organic origin Obesity, unspecified Other and unspecified hyperlipidemia Personal history of colonic polyps Skin cancer, basal cell [facility] [place] Unspecified essential hypertension PAST SURGICAL HISTORY Procedure Laterality Date CARDIAC CATH 01/16/2017 CARDIOVERSION 2017 COLONOSCOPY FLX DX W/COLLJ SPEC WHEN PFRMD 03/03/2014 Colonoscopy COLONOSCOPY FLX DX W/COLLJ SPEC WHEN PFRMD 05/31/2019 Colonoscopy COLSC FLX W/RMVL OF TUMOR POLYP LESION SNARE TQ 05/27/07 COLSC FLX W/RMVL OF TUMOR POLYP LESION SNARE TQ 08/09/10 PAST SURGICAL HISTORY OF 1997 arthroscopic lt knee surg PAST SURGICAL HISTORY OF 1999 Rt foot great toe fusion TONSILLECTOMY & ADENOIDECTOMY <AGE 11 FAMILY HISTORY Problem Relation Age of Onset Cancer Father lymphoma GI Mother Coronary Artery Disease Brother Ischemic Heart Disease Mother Social History Tobacco Use Smoking status: Former Years: 1.00 Types: Cigarettes Smokeless tobacco: Never Tobacco comments: Quit 1975 1-2 cig daily on the weekends Substance Use Topics Alcohol use: Yes Comment: rarely Drug use: No Reviewed current medications, allergies, past medical history, surgical history, family history andsocial history today. REVIEW OF SYSTEMS All other reviewed and negative other than HPI. HEALTH MAINTENANCE: Reviewed health maintenance issues today and recommended the following in detail. DILATED RETINAL EXAM -in last three years. INFLUENZA(1) due on 02/21/2022 HBA1C due on 03/26/2022 URINE ALBUMIN:CREATININE RATIO due on 03/26/2022 VITALS: BP 142/70 Pulse 89 Resp 16 Wt 98.9 kg (218 lb) SpO2 98% BMI 31.28 kg/m Last 4 Encounter Wt Readings: Date: Wt: 03/28/2022 98.9 kg (218 lb) 03/05/2022 99.8 kg (220 lb) 09/24/2021 98.9 kg (218 lb) 04/19/2021 98.9 kg (218 lb) PHYSICAL EXAMINATION: General appearance: Well appearing, alert, in no acute distress, well-hydrated, well nourished. Skin: Skin color, texture, turgor normal, no suspicious rashes or lesions Head: Normocephalic, no masses, lesions, tenderness or abnormalities Lungs: Lungs clear to auscultation. No wheezing, rhonchi, rales Heart: RRR without murmur, gallop, or rubs. No ectopy Abdomen: Normal abdominal exam, Abdomen soft, non-tender. Bowel sounds normal. No masses, organomegaly Extremities: No deformities, edema, skin discoloration, clubbing or cyanosis. Good capillary refill. Musculoskeletal: No joint swelling, deformity, or tenderness ASSESSMENT/PLAN: 1. Essential hypertension - ICD9: 401.9, ICD10: I10 (primary diagnosis) - poor control and noncompliance with meds. He is to check what he is on at home and call it in. Reinforced risk of noncompliane Labs and bp in one month - CLONIDINE HCL 0.1 MG TABLET - COMP METABOLIC PANEL - LIPID PANEL BASIC 2. Need for influenza vaccination - ICD9: V04.81, ICD10: Z23 - INFLUENZA SEASONAL QUADRIVALENT HIGH DOSE AGE 65+ 3. Mixed hyperlipidemia - ICD9: 272.2, ICD10: E78.2 4. Type 2 diabetes mellitus without complication, without long-term current use of insulin (HCC) - ICD9: 250.00, ICD10: E11.9 Poor adherence to plan of care. - call with list of meds. - HGB A1C - ALBUMIN/CREAT RATIO RND UR 5. Gout with manifestations - ICD9: 274.89, ICD10: M10.9 - stable. 6. Bilateral carotid artery stenosis - ICD9: 433.10, 433.30, ICD10: I65.23 - per cardio 7. Paroxysmal atrial fibrillation (HCC) - ICD9: 427.31, ICD10: I48.0 Per cardio Enrrique gonzales documented in [facility] encounter[facility]10[facility] Miscellaneous Notes* Telephone Encounter - Valentine Fountain Ma - 03/25/2022 1:42 PM EDT Last office visit: 09/24/21 F/u scheduled: 03/28/22 Valentine Fountain Ma documented in this encounterMi[facility]09[facility] History of Present illness Narrative* Brandy Santana APRN.[employer]ER - 03/05/2022 7:10 PM EDT Subjective Ear Problem Associated symptoms include hearing loss. Pertinent negatives include no rash. April Quesada is a 81 year old male who presents with a piece of his hearing aid stuck in his left ear. This happened about an hour ago and he tried to remove it with tweezers and was unsuccessful. He denies pain in hisear. Review of Systems Constitutional: Negative for chills and fever. HENT: Positive for hearing loss. Negative for ear pain. Skin: Negative for itching and rash. BP 136/80 Pulse 86 Temp 36.6 C (97.9 F) Resp 16 Wt 99.8 kg (220 lb) SpO2 97% BMI 31.57 kg/m PAST MEDICAL HISTORY Diagnosis Date Anxiety state, unspecified Benign neoplasm of colon Carotid stenosis Depressive disorder, not elsewhere classified Diverticulosis of colon (without mention of hemorrhage) DM (diabetes mellitus) (HCC) Gout Hearing loss wears hearing aids Hypertrophy of prostate without urinary obstruction and other lower urinary tract symptoms (LUTS) Impotence of organic origin Obesity, unspecified Other and unspecified hyperlipidemia Personal history of colonic polyps Skin cancer, basal cell [facility] [place] Unspecified essential hypertension PAST SURGICAL HISTORY Procedure Laterality Date CARDIAC CATH 01/16/2017 CARDIOVERSION 2016 COLONOSCOPY FLX DX W/COLLJ SPEC WHEN PFRMD 03/03/2014 Colonoscopy COLONOSCOPY FLX DX W/COLLJ SPEC WHEN PFRMD 05/31/2019 Colonoscopy COLSC FLX W/RMVL OF TUMOR POLYP LESION SNARE TQ 05/27/07 COLSC FLX W/RMVL OF TUMOR POLYP LESION SNARE TQ 08/09/10 PAST SURGICAL HISTORY OF 1997 arthroscopic lt knee surg PAST SURGICAL HISTORY OF 1999 Rt foot great toe fusion TONSILLECTOMY & ADENOIDECTOMY <AGE 11 ALLERGIES Cephalosporins and Doxycycline MEDICATIONS amLODIPine (NORVASC) 10 mg tablet Take 1 tablet by mouth once daily. LORazepam (ATIVAN) 0.5 mg Take 1 tablet by mouth twice daily as needed for up to 90 days. cloNIDine HCl (CATAPRES) 0.1 mg tablet Take 1 tablet by mouth once daily. metFORMIN ER (GLUCOPHAGE XR) 500 mg 24 hr tablet Take 1 tablet by mouth daily with breakfast. atorvastatin (LIPITOR) 20 mg tablet Take 1 tablet by mouth daily at bedtime. For cholesterol. furosemide (LASIX) 20 mg tablet Take 1 tablet by mouth once daily. lisinopril (ZESTRIL, PRINIVIL) 40 mg tablet Take 1 tablet by mouth once daily. allopurinol (ZYLOPRIM) 100 mg tablet Take 1 tablet by mouth once daily. carvedilol (COREG) 3.125 mg tablet Take 3.125 mg by mouth twice daily with meals. rivaroxaban (XARELTO) 20 mg tablet Take 20 mg by mouth daily with dinner. aspirin, enteric coated (ASPIRIN, ENTERIC COATED) 81 mg EC tablet Take 81 mg by mouth two times a week. Cholecalciferol, Vitamin D3, 2,000 unit cap Take 1 tablet by mouth once daily. FAMILY HISTORY Problem Relation Age of Onset Cancer Father lymphoma GI Mother Coronary Artery Disease Brother Ischemic Heart Disease Mother Social History Tobacco Use Smoking status: Former Years: 1.00 Types: Cigarettes Smokeless tobacco: Never Tobacco comments: Quit 1975 1-2 cig daily on the weekends Substance Use Topics Alcohol use: Yes Comment: rarely Drug use: No Objective Physical Exam Vitals and nursing note reviewed. HENT: Left Ear: Decreased hearing noted. A foreign body is present. Ears: Comments: Rubber tip of hearing aid removed from left ear canal with lighted forceps. Following removal left ear canal is clear, TM is well visualized with bony landmarks intact and no sign of inflammation. Skin: General: Skin is warm and dry. Findings: No erythema or rash. Neurological: Mental Status: He is alert. ASSESSMENT/PLAN: 1. Acute foreign body of ear canal, left, initial encounter - ICD9: 931, E915, ICD10: T16.2XXA - removed without incident. Brandy Santana APRN.CANDLES POURER documented [facility] this encounter[facility]22 Miscellaneous Notes* Telephone Encounter - Basilio Suarez LPN - 03/02/2022 11:51 AM EDT Patient phones requesting refills as follows: Requested Prescriptions Pending Prescriptions Disp Refills amLODIPine (NORVASC) 10 mg tablet 90 tablet 1 Sig: Take 1 tablet by mouth once daily. LC 09/24/21 NOV 03/28/22 Please review and advise. Basilio Suarez LPN documented in this encounterMi[facility]07-15-2022 Miscellaneous Notes* Telephone Encounter - Basilio Suarez LPN - 01/04/2022 10:09 AM EDT Patient phones requesting refills as follows: Pending Prescriptions Disp Refills LORAZEPAM 0.5 MG TABLET 60 tablet 1 Sig: Take 1 tablet by mouth twice daily as needed for up to 90 days. CALLI Class: C-IV SUSY: No LC 09/24/21 NOV 03/28/22 Last rx written 04/09/21 #60 with 1 refill Last urine tox screen 2018 Please review and advise. Basilio Suarez LPN documented in this encounterMi[facility]07-01-2022 Miscellaneous Notes* Telephone Encounter - Sury Yeager LPN - 12/21/2021 7:46 AM EDT Patient has been identified by name and date of : Yes Patient phones for refill(s): Pending Prescriptions Disp Refills CLONIDINE HCL 0.1 MG TABLET 60 tablet 1 Sig: Take 1 tablet by mouth once daily. SUSY: No Date of last office visit in primary care: 09/24/21 next apt 03/28/22 Last 2 Encounter Wt Readings: Date: Wt: 09/24/2021 98.9 kg (218 lb) 04/19/2021 98.9 kg (218 lb) Previous labs/tests for medication: Not applicable Please advise. Thank you. Sury Yeager LPN documented in this encounterMi[facility]06-21-2022 History of Present illness Narrative* Jeni Bonds Pharm-T - 12/11/2021 9:26 AM EDT April Quesada is identified through a medication adherence outreach initiative based on pharmacy claims data from [employer] (insurer). Patient is reviewed 12/11/21 due to medication adherence concerns with Metformin and Lipitor medication(s) for Diabetes and Cholesterol. Per data report last fill date and quantity: 09/25/2021 for 30 days Per reconcile dispense: 09/25/2021 for 30 days Per call to pharmacy: 09/25/2021 for 30 days Contacted patient: Left Message for patient Jeni Raquel Bonds Pharm-T documented in this encounterMi[facility]04-06-2022 Miscellaneous Notes* Telephone Encounter - Elizabeth Marsh LPN - 09/26/2021 3:34 PM EDT Patient notified to set up sooner. * Telephone Encounter - Enrrique Carmona MD - 09/26/2021 3:15 PM EDT He needs to see cardiology now * Telephone Encounter - Berta Guzman LPN - 09/26/2021 3:09 PM EDT Patient returned call and went over results, notes from Dr Carmona with understanding. Aware rx x 3 topharmacy. Patient said [facility], has not seen there, sees Rosalino Jean-Baptiste, his next appt isscheduled for 05/21/2022. Printed copy of labs and faxed to [facility] as requested. * Telephone Encounter - Basilio Suarez LPN - 09/25/2021 11:50 AM EDT TC to pt, left message to return call to office. Basilio Suarez LPN * Telephone Encounter - Enrrique Carmona MD - 09/25/2021 10:52 AM EDT Sugars are slightly higher as is his lipids. Needs to take his metformin and lipitor as we discussed. Resent over. His bnp or test for chf is up. That might be why there are small amounts of luid in his lung bases and he is short of breath. Add lasix once a day and recheck bmp in one week. Fax a copy of labs to his powderer. Does he have a follow up appt with them yet?. Consult placed yesterday documented in this encounterMi[facility]04-04-2022 Miscellaneous Notes* Telephone Encounter - Sury Yeager LPN - 09/24/2021 4:10 PM EDT Daughter called and information listed below given. Daughter verbalizes understanding. Sury Yeager LPN * Telephone Encounter - Elizabeth Marsh LPN - 09/24/2021 3:04 PM EDT Faxed OV and x-ray to [facility]. Left message for patient to call office. * Telephone Encounter - Enrrique Carmona MD - 09/24/2021 2:30 PM EDT Chest xray shows a very small amount of fluid at bases of both lungs. Fax copy of my note and xray to his powderer. Call if shortness of breath worsens. We will see what is labs show. documented in this encounterMi[facility]04-04-2022 History of Present illness Narrative* Jessica Coates, RT(R) - 09/24/2021 12:00 PM EDT Radiology Service Progress Note PATIENT NAME: April Quesada DATE OF SERVICE: September 24, 2021 TIME: 11:41 AM PATIENT IDENTITY VERIFICATION COMPLETED USING TWO (2) IDENTIFIERS: Name and Date of confirmedby patient verbally. FALL SCREENING: Has the patient had 2 falls in the last year or 1 fall with injury or currently using an Ambulatory Assistive Device (Walker, Cane, Wheelchair, Crutches, etc.)? No PATIENT GENDER DATA: Male PATIENT RELEVANT IMPLANT DATA REVIEWED: Yes RADIOLOGY DEPARTMENT: General X-ray: Exam(s) Completed: Chest X-Ray PERIPHERAL IV DATA: Not applicable SIGNED BY: RT Cristo(R) September 24, 2021 11:41 AM documented in this encounterMi[facility]04-04-2022 History of Present illness Narrative* Enrrique Carmona MD - 09/24/2021 10:17 AM EDT Patient presents with: 6 Month Exam HPI: Patient presents today for office visit for follow up. .nursingnote Has not been taking metformin or lipitor. Explained why we need to consider meds if labs remain up. See nursing note. Reviewed last heart cath. Had 30%LAD. No cough or wheeze. Has noted it with increased exertion. Resting will help. Noticed it three months ago. Discussed risks and benefits of benzo's. He is willing to stop it He does not want to continue its use after discussion. Does not use daily. No bleeding or bruising issues. Discussed stresses with caring for his . No issues with gout. Nursing Notes: Elizabethsarah Worthyblake GAY 09/24/2021 10:22 AM Signed HTN: Patient is compliant with meds Yes Monitors bp at home: Will take at pharmacy sometimes. Denies side effects: No. Chest pain: No. Dyspnea: At times with exertion. For example climbing ladders or walking up hill. Starting thinkingabout this after recent cardio visit when Dr Jean-Baptiste ask him if he had any and he had answered no. Edema: No. Palpitations: No. Syncope: No. Headache: No. Dizziness: No. Cough: No. DM: Reports overall feeling well. Stopped metformin. Just felt like taking too many pills. Medication side effects: No. Home sugar check frequency/results:no Hypoglycemic spells: No. Watching diet: Yes. Unexpected weight loss: No. Polyuria, polydipsia: Does get up 2-3 times through the night to urinate. Vision Changes: No. Foot lesions or numbness or pain: No. Complains that sometimes feet are cold. HYPERLIPIDEMIA: Patient is taking medications: No. Didn't take very long. Patient is watching diet: Yes. Patient denies myalgias: Yes. Patient denies gi upset: Yes MEDICATIONS: Current Outpatient Medications Medication Sig cloNIDine HCl (CATAPRES) 0.1 mg tablet Take 1 tablet by mouth once daily. amLODIPine (NORVASC) 10 mg tablet Take 1 tablet by mouth once daily. lisinopril (ZESTRIL, PRINIVIL) 40 mg tablet Take 1 tablet by mouth once daily. allopurinol (ZYLOPRIM) 100 mg tablet Take 1 tablet by mouth once daily. carvedilol (COREG) 3.125 mg tablet Take 3.125 mg by mouth twice daily with meals. rivaroxaban (XARELTO) 20 mg tablet Take 20 mg by mouth daily with dinner. aspirin, enteric coated (ECOTRIN LOW STRENGTH) 81 mg EC tablet Take 81 mg by mouth two times a week. Cholecalciferol, Vitamin D3, 2,000 unit cap Take 1 tablet by mouth once daily. metFORMIN ER (GLUCOPHAGE XR) 500 mg 24 hr tablet Take 1 tablet by mouth daily with breakfast. (Patient not taking: Reported on 09/24/2021 ) atorvastatin (LIPITOR) 20 mg tablet Take 1 tablet by mouth daily at bedtime. For cholesterol. (Patient not taking: Reported on 09/24/2021 ) Polypodium Leucotomos Extract 240 mg cap Take 1-2 capsules by mouth once daily. (Patient not taking: Reported on 07/05/2021 ) No current facility-administered medications for this visit. ALLERGIES: ALLERGIES Allergen Reactions Cephalosporins Rash Doxycycline Rash photosensitivity dermatitis PAST MEDICAL HISTORY Diagnosis Date Anxiety state, unspecified Benign neoplasm of colon Carotid stenosis Depressive disorder, not elsewhere classified Diverticulosis of colon (without mention of hemorrhage) DM (diabetes mellitus) (HCC) Gout Hearing loss wears hearing aids Hypertrophy of prostate without urinary obstruction and other lower urinary tract symptoms (LUTS) Impotence of organic origin Obesity, unspecified Other and unspecified hyperlipidemia Personal history of colonic polyps Skin cancer, basal cell [facility] [place] Unspecified essential hypertension PAST SURGICAL HISTORY Procedure Laterality Date CARDIAC CATH 01/16/2017 CARDIOVERSION 2016 COLONOSCOPY FLX DX W/COLLJ SPEC WHEN PFRMD 03/03/2014 Colonoscopy COLONOSCOPY FLX DX W/COLLJ SPEC WHEN PFRMD 05/31/2019 Colonoscopy COLSC FLX W/RMVL OF TUMOR POLYP LESION SNARE TQ 05/27/07 COLSC FLX W/RMVL OF TUMOR POLYP LESION SNARE TQ 08/09/10 PAST SURGICAL HISTORY OF 1997 arthroscopic lt knee surg PAST SURGICAL HISTORY OF 1999 Rt foot great toe fusion TONSILLECTOMY & ADENOIDECTOMY <AGE 11 FAMILY HISTORY Problem Relation Age of Onset Cancer Father lymphoma GI Mother Coronary Artery Disease Brother Ischemic Heart Disease Mother Social History Tobacco Use Smoking status: Former Smoker Years: 1.00 Smokeless tobacco: Never Used Tobacco comment: Quit 1975 1-2 cig daily on the weekends Substance Use Topics Alcohol use: Yes Comment: rarely Drug use: No Reviewed current medications, allergies, past medical history, surgical history, family history andsocial history today. REVIEW OF SYSTEMS All other reviewed and negative other than HPI. HEALTH MAINTENANCE: Reviewed health maintenance issues today and recommended the following in detail. COVID-19 VACCINE(3 - Booster for Pfizer series) -suggested he consider. ADVANCE DIRECTIVE DISCUSSION -Discussed advanced planning with patient today. They have a DPOA/Living Will:Yes Chosen surrogate for decision maker:his daughters, Caren and Michelle Lua DPOA/Living Will forms given:N/A Reminded patients to have copies of their forms brought into the office to have placed in their medical records. Questions were answered. DILATED RETINAL EXAM due on 07/10/2021 HBA1C due on 09/24/2021 DIABETIC FOOT EXAM due on 09/22/2021 VITALS: BP 122/82 Pulse 92 Wt 98.9 kg (218 lb) BMI 31.28 kg/m Last 4 Encounter Wt Readings: Date: Wt: 04/19/2021 98.9 kg (218 lb) 04/19/2021 98.9 kg (218 lb) 03/26/2021 98.9 kg (218 lb) 10/26/2020 98.4 kg (217 lb) PHYSICAL EXAMINATION: General appearance: Well appearing, alert, in no acute distress, well-hydrated, well nourished. Skin: Skin color, texture, turgor normal, no suspicious rashes or lesions Head: Normocephalic, no masses, lesions, tenderness or abnormalities Neck: Supple, no adenopathy; thyroid symmetric, normal size, no bruits Lungs: Lungs clear to auscultation. No wheezing, rhonchi, rales Heart: irregularly irregular. Normal S1 and S2 Abdomen: Normal abdominal exam, Abdomen soft, non-tender. Bowel sounds normal. No masses, organomegaly Extremities: No deformities, edema, skin discoloration, clubbing or cyanosis. Good capillary refill. Feet:Shoes and socks removed, No deformities, ulcers, calluses, normal distal pulses and sensitive to 10 gm monofilament ASSESSMENT/PLAN: 1. SOB (shortness of breath) - ICD9: 786.05, ICD10: R06.02 (primary diagnosis) - Red flags for re-assessment reviewed with patient in detail. - back to cardiology. Check xray and labs today - ECG COMPLETE - XR CHEST 2V FRONTAL/LAT - HGB A1C - LIPID PANEL BASIC - CBC - BASIC METABOLIC PNL - NT PRO BNP 2. Anxiety - ICD9: 300.00, ICD10: F41.9 - he will avoid benzo 3. Medication monitoring encounter - ICD9: V58.83, ICD10: Z51.81 - as above 4. Advance care planning - ICD9: V65.49, ICD10: Z71.89 - completed. 5. Essential hypertension - ICD9: 401.9, ICD10: I10 - good control - Continue current medication(s) - Goal of BP <130/80 6. Paroxysmal atrial fibrillation (HCC) - ICD9: 427.31, ICD10: I48.0 - no change with ekg. Shows afib with controlled rate. - ECG COMPLETE 7. Mixed hyperlipidemia - ICD9: 272.2, ICD10: E78.2 - noncompliance and - to be determined upon return of lab results - reinforced not to stop meds without consulting us 8. Type 2 diabetes mellitus without complication, without long-term current use of insulin (HCC) - ICD9: 250.00, ICD10: E11.9 Controlled. Poor adherence to plan of care. - Reinforced need to not stop meds without consulting us. 9. Bilateral carotid artery stenosis - ICD9: 433.10, 433.30, ICD10: I65.23 - per cardiology Enrrique Carmona MD documented in [facility] encounterMi[facility]04-04-2022 Nurse Note* Elizabeth Marsh LPN - 09/24/2021 10:15 AM EDT HTN: Patient is compliant with meds Yes Monitors bp at home: Will take at pharmacy sometimes. Denies side effects: No. Chest pain: No. Dyspnea: At times with exertion. For example climbing ladders or walking up hill. Starting thinkingabout this after recent cardio visit when Dr Jean-Baptiste ask him if he had any and he had answered no. Edema: No. Palpitations: No. Syncope: No. Headache: No. Dizziness: No. Cough: No. DM: Reports overall feeling well. Stopped metformin. Just felt like taking too many pills. Medication side effects: No. Home sugar check frequency/results:no Hypoglycemic spells: No. Watching diet: Yes. Unexpected weight loss: No. Polyuria, polydipsia: Does get up 2-3 times through the night to urinate. Vision Changes: No. Foot lesions or numbness or pain: No. Complains that sometimes feet are cold. HYPERLIPIDEMIA: Patient is taking medications: No. Didn't take very long. Patient is watching diet: Yes. Patient denies myalgias: Yes. Patient denies gi upset: Yes documented in this encounterMi[facility]10-28-2021 History of Present illness Narrative* Jessica Coates RT(R) - 04/19/2021 11:00 AM EDT Radiology Service Progress Note PATIENT NAME: April Quesada DATE OF SERVICE: April 19, 2021 TIME: 11:06 AM PATIENT IDENTITY VERIFICATION COMPLETED USING TWO (2) IDENTIFIERS: Name and Date of confirmedby patient verbally. FALL SCREENING: Has the patient had 2 falls in the last year or 1 fall with injury or currently using an Ambulatory Assistive Device (Walker, Cane, Wheelchair, Crutches, etc.)? No PATIENT GENDER DATA: Male PATIENT RELEVANT IMPLANT DATA REVIEWED: Yes RADIOLOGY DEPARTMENT: General X-ray: Exam(s) Completed: Upper Extremity X- Ray(s): Wrist, right PERIPHERAL IV DATA: Not applicable SIGNED BY: RT Cristo(Tasha) April 19, 2021 11:06 AM documented in this encounterMiami [facility]02-09-2018 History of Past illness Narrative* Problem Noted Date Resolved Date Elevated hemoglobin 08/01/2017 03/26/2021 DM w/o complication type II 12/14/201004/23 Last Assessment & Plan: [facility] repeat lab 6.8 for Hgba1c. Prior hx of borderline levels last year. Previously had seen a health aide at [facility] while admitted. BPH (benign prostatic hypertrophy) 08/16/2010 07/09/2016 HAND DERMATITIS 03/21/2008 09/20/2020 COLON POLYP 05/27/2007 05/02/2014 Overview: 05/27/2007 - Needs a repeat in three years HYPERGLYCEMIA 06/09/2006 07/09/2016 Unspecified disorder of prostate 02/19/2006 07/09/2016 Nocturia 02/19/2006 07/09/2016 Carotid stenosis 10/08/2019 documented as of this encounter (statuses as of 09/24/2021) [facility] of [facility] illness Narrative* Problem Noted Date Resolved Date Elevated hemoglobin 08/01/2017 03/26/2021 DM w/o complication type II 12/14/201004/23 Last Assessment & Plan: [facility] repeat lab 6.8 for Hgba1c. Prior hx of borderline levels last year. Previously had seen a health aide at [facility] while admitted. BPH (benign prostatic hypertrophy) 08/16/2010 07/09/2016 HAND DERMATITIS 03/21/2008 09/20/2020 COLON POLYP 05/27/2007 05/02/2014 Overview: 05/27/2007 - Needs a repeat in three years HYPERGLYCEMIA 06/09/2006 07/09/2016 Unspecified disorder of prostate 02/19/2006 07/09/2016 Nocturia 02/19/2006 07/09/2016 Carotid stenosis 10/08/2019 documented as of this encounter (statuses as of 09/24/2021) [facility] of [facility] illness Narrative* Problem Noted Date Resolved Date Elevated hemoglobin 08/01/2017 03/26/2021 DM w/o complication type II 12/14/201004/23 Last Assessment & Plan: [facility] repeat lab 6.8 for Hgba1c. Prior hx of borderline levels last year. Previously had seen a health aide at [facility] while admitted. BPH (benign prostatic hypertrophy) 08/16/2010 07/09/2016 HAND DERMATITIS 03/21/2008 09/20/2020 COLON POLYP 05/27/2007 05/02/2014 Overview: 05/27/2007 - Needs a repeat in three years HYPERGLYCEMIA 06/09/2006 07/09/2016 Unspecified disorder of prostate 02/19/2006 07/09/2016 Nocturia 02/19/2006 07/09/2016 Carotid stenosis 10/08/2019 documented as of this encounter (statuses as of 09/26/2021) [facility] Narrative* Problem Noted Date Resolved Date Elevated hemoglobin 08/01/2017 03/26/2021 DM w/o complication type II 12/14/201004/23 Last Assessment & Plan: [facility] repeat lab 6.8 for Hgba1c. Prior hx of borderline levels last year. Previously had seen a health aide at [facility] while admitted. BPH (benign prostatic hypertrophy) 08/16/2010 07/09/2016 HAND DERMATITIS 03/21/2008 09/20/2020 COLON POLYP 05/27/2007 05/02/2014 Overview: 05/27/2007 - Needs a repeat in three years HYPERGLYCEMIA 06/09/2006 07/09/2016 Unspecified disorder of prostate 02/19/2006 07/09/2016 Nocturia 02/19/2006 07/09/2016 Carotid stenosis 10/08/2019 documented as of this encounter (statuses as of 12/05/2021) [facility] Narrative* Problem Noted Date Resolved Date Elevated hemoglobin 08/01/2017 03/26/2021 DM w/o complication type II 12/14/201004/23 Last Assessment & Plan: [facility] repeat lab 6.8 for Hgba1c. Prior hx of borderline levels last year. Previously had seen a health aide at [facility] while admitted. BPH (benign prostatic hypertrophy) 08/16/2010 07/09/2016 HAND DERMATITIS 03/21/2008 09/20/2020 COLON POLYP 05/27/2007 05/02/2014 Overview: 05/27/2007 - Needs a repeat in three years HYPERGLYCEMIA 06/09/2006 07/09/2016 Unspecified disorder of prostate 02/19/2006 07/09/2016 Nocturia 02/19/2006 07/09/2016 Carotid stenosis 10/08/2019 documented as of this encounter (statuses as of 12/21/2021) [facility] Narrative* Problem Noted Date Resolved Date Elevated hemoglobin 08/01/2017 03/26/2021 DM w/o complication type II 12/14/201004/23 Last Assessment & Plan: [facility] repeat lab 6.8 for Hgba1c. Prior hx of borderline levels last year. Previously had seen a health aide at [facility] while admitted. BPH (benign prostatic hypertrophy) 08/16/2010 07/09/2016 HAND DERMATITIS 03/21/2008 09/20/2020 COLON POLYP 05/27/2007 05/02/2014 Overview: 05/27/2007 - Needs a repeat in three years HYPERGLYCEMIA 06/09/2006 07/09/2016 Unspecified disorder of prostate 02/19/2006 07/09/2016 Nocturia 02/19/2006 07/09/2016 Carotid stenosis 10/08/2019 documented as of this encounter (statuses as of 12/27/2021) [facility] Narrative* Problem Noted Date Resolved Date Elevated hemoglobin 08/01/2017 03/26/2021 DM w/o complication type II 12/14/201004/23 Last Assessment & Plan: [facility] repeat lab 6.8 for Hgba1c. Prior hx of borderline levels last year. Previously had seen a health aide at [facility] while admitted. BPH (benign prostatic hypertrophy) 08/16/2010 07/09/2016 HAND DERMATITIS 03/21/2008 09/20/2020 COLON POLYP 05/27/2007 05/02/2014 Overview: 05/27/2007 - Needs a repeat in three years HYPERGLYCEMIA 06/09/2006 07/09/2016 Unspecified disorder of prostate 02/19/2006 07/09/2016 Nocturia 02/19/2006 07/09/2016 Carotid stenosis 10/08/2019 documented as of this encounter (statuses as of 01/04/2022) [facility] Narrative* Problem Noted Date Resolved Date Elevated hemoglobin 08/01/2017 03/26/2021 DM w/o complication type II 12/14/201004/23 Last Assessment & Plan: [facility] repeat lab 6.8 for Hgba1c. Prior hx of borderline levels last year. Previously had seen a health aide at [facility] while admitted. BPH (benign prostatic hypertrophy) 08/16/2010 07/09/2016 HAND DERMATITIS 03/21/2008 09/20/2020 COLON POLYP 05/27/2007 05/02/2014 Overview: 05/27/2007 - Needs a repeat in three years HYPERGLYCEMIA 06/09/2006 07/09/2016 Unspecified disorder of prostate 02/19/2006 07/09/2016 Nocturia 02/19/2006 07/09/2016 Carotid stenosis 10/08/2019 documented as of this encounter (statuses as of 03/04/2022) [facility] Narrative* Problem Noted Date Resolved Date Elevated hemoglobin 08/01/2017 03/26/2021 DM w/o complication type II 12/14/201004/23 Last Assessment & Plan: [facility] repeat lab 6.8 for Hgba1c. Prior hx of borderline levels last year. Previously had seen a health aide at [facility] while admitted. BPH (benign prostatic hypertrophy) 08/16/2010 07/09/2016 HAND DERMATITIS 03/21/2008 09/20/2020 COLON POLYP 05/27/2007 05/02/2014 Overview: 05/27/2007 - Needs a repeat in three years HYPERGLYCEMIA 06/09/2006 07/09/2016 Unspecified disorder of prostate 02/19/2006 07/09/2016 Nocturia 02/19/2006 07/09/2016 Carotid stenosis 10/08/2019 documented as of this encounter (statuses as of 03/05/2022) [facility] Narrative* Problem Noted Date Resolved Date Elevated hemoglobin 08/01/2017 03/26/2021 DM w/o complication type II 12/14/201004/23 Last Assessment & Plan: [facility] repeat lab 6.8 for Hgba1c. Prior hx of borderline levels last year. Previously had seen a health aide at [facility] while admitted. BPH (benign prostatic hypertrophy) 08/16/2010 07/09/2016 HAND DERMATITIS 03/21/2008 09/20/2020 COLON POLYP 05/27/2007 05/02/2014 Overview: 05/27/2007 - Needs a repeat in three years HYPERGLYCEMIA 06/09/2006 07/09/2016 Unspecified disorder of prostate 02/19/2006 07/09/2016 Nocturia 02/19/2006 07/09/2016 Carotid stenosis 10/08/2019 documented as of this encounter (statuses as of 03/26/2022) [facility] Narrative* Problem Noted Date Resolved Date Elevated hemoglobin 08/01/2017 03/26/2021 DM w/o complication type II 12/14/201004/23 Last Assessment & Plan: [facility] repeat lab 6.8 for Hgba1c. Prior hx of borderline levels last year. Previously had seen a health aide at [facility] while admitted. BPH (benign prostatic hypertrophy) 08/16/2010 07/09/2016 HAND DERMATITIS 03/21/2008 09/20/2020 COLON POLYP 05/27/2007 05/02/2014 Overview: 05/27/2007 - Needs a repeat in three years HYPERGLYCEMIA 06/09/2006 07/09/2016 Unspecified disorder of prostate 02/19/2006 07/09/2016 Nocturia 02/19/2006 07/09/2016 Carotid stenosis 10/08/2019 documented as of this encounter (statuses as of 03/28/2022) [facility]arrative* Problem Noted Date Resolved Date Elevated hemoglobin 08/01/2017 03/26/2021 DM w/o complication type II 12/14/201004/23 Last Assessment & Plan: [facility] repeat lab 6.8 for Hgba1c. Prior hx of borderline levels last year. Previously had seen a health aide at [facility] while admitted. BPH (benign prostatic hypertrophy) 08/16/2010 07/09/2016 HAND DERMATITIS 03/21/2008 09/20/2020 COLON POLYP 05/27/2007 05/02/2014 Overview: 05/27/2007 - Needs a repeat in three years HYPERGLYCEMIA 06/09/2006 07/09/2016 Unspecified disorder of prostate 02/19/2006 07/09/2016 Nocturia 02/19/2006 07/09/2016 Carotid stenosis 10/08/2019 documented as of this encounter (statuses as of 03/29/2022) [facility]arr[facility]* Problem Noted Date Resolved Date Elevated hemoglobin 08/01/2017 03/26/2021 DM w/o complication type II 12/14/201004/23 Last Assessment & Plan: [facility] repeat lab 6.8 for Hgba1c. Prior hx of borderline levels last year. Previously had seen a health aide at [facility] while admitted. BPH (benign prostatic hypertrophy) 08/16/2010 07/09/2016 HAND DERMATITIS 03/21/2008 09/20/2020 COLON POLYP 05/27/2007 05/02/2014 Overview: 05/27/2007 - Needs a repeat in three years HYPERGLYCEMIA 06/09/2006 07/09/2016 Unspecified disorder of prostate 02/19/2006 07/09/2016 Nocturia 02/19/2006 07/09/2016 Carotid stenosis 10/08/2019 documented as of this encounter (statuses as of 03/29/2022) [facility] History of Past illness Narrative* Problem Noted Date Resolved Date Elevated hemoglobin 08/01/2017 03/26/2021 DM w/o complication type II 12/14/201004/23 Last Assessment & Plan: [facility] repeat lab 6.8 for Hgba1c. Prior hx of borderline levels last year. Previously had seen a health aide at [facility] while admitted. BPH (benign prostatic hypertrophy) 08/16/2010 07/09/2016 HAND DERMATITIS 03/21/2008 09/20/2020 COLON POLYP 05/27/2007 05/02/2014 Overview: 05/27/2007 - Needs a repeat in three years HYPERGLYCEMIA 06/09/2006 07/09/2016 Unspecified disorder of prostate 02/19/2006 07/09/2016 Nocturia 02/19/2006 07/09/2016 Carotid stenosis 10/08/2019 documented as of this encounter (statuses as of 03/30/2022) [facility] History of Past illness Narrative* Problem Noted Date Resolved Date Elevated hemoglobin 08/01/2017 03/26/2021 DM w/o complication type II 12/14/201004/23 Last Assessment & Plan: [facility] repeat lab 6.8 for Hgba1c. Prior hx of borderline levels last year. Previously had seen a health aide at [facility] while admitted. BPH (benign prostatic hypertrophy) 08/16/2010 07/09/2016 HAND DERMATITIS 03/21/2008 09/20/2020 COLON POLYP 05/27/2007 05/02/2014 Overview: 05/27/2007 - Needs a repeat in three years HYPERGLYCEMIA 06/09/2006 07/09/2016 Unspecified disorder of prostate 02/19/2006 07/09/2016 Nocturia 02/19/2006 07/09/2016 Carotid stenosis 10/08/2019 documented as of this encounter (statuses as of 04/01/2022) [facility] History of Past illness Narrative* Problem Noted Date Resolved Date Elevated hemoglobin 08/01/2017 03/26/2021 DM w/o complication type II 12/14/201004/23 Last Assessment & Plan: [facility] repeat lab 6.8 for Hgba1c. Prior hx of borderline levels last year. Previously had seen a health aide at [facility] while admitted. BPH (benign prostatic hypertrophy) 08/16/2010 07/09/2016 HAND DERMATITIS 03/21/2008 09/20/2020 COLON POLYP 05/27/2007 05/02/2014 Overview: 05/27/2007 - Needs a repeat in three years HYPERGLYCEMIA 06/09/2006 07/09/2016 Unspecified disorder of prostate 02/19/2006 07/09/2016 Nocturia 02/19/2006 07/09/2016 Carotid stenosis 10/08/2019 documented as of this encounter (statuses as of 06/28/2022) [facility] History of Past illness Narrative* Problem Noted Date Resolved Date Elevated hemoglobin 08/01/2017 03/26/2021 DM w/o complication type II 12/14/201004/23 Last Assessment & Plan: [facility] repeat lab 6.8 for Hgba1c. Prior hx of borderline levels last year. Previously had seen a health aide at [facility] while admitted. BPH (benign prostatic hypertrophy) 08/16/2010 07/09/2016 HAND DERMATITIS 03/21/2008 09/20/2020 COLON POLYP 05/27/2007 05/02/2014 Overview: 05/27/2007 - Needs a repeat in three years HYPERGLYCEMIA 06/09/2006 07/09/2016 Unspecified disorder of prostate 02/19/2006 07/09/2016 Nocturia 02/19/2006 07/09/2016 Carotid stenosis 10/08/2019 documented as of this encounter (statuses as of 08/07/2022) [facility] History of Past illness Narrative* Problem Noted Date Resolved Date Elevated hemoglobin 08/01/2017 03/26/2021 DM w/o complication type II 12/14/201004/23 Last Assessment & Plan: [facility] repeat lab 6.8 for Hgba1c. Prior hx of borderline levels last year. Previously had seen a health aide at [facility] while admitted. BPH (benign prostatic hypertrophy) 08/16/2010 07/09/2016 HAND DERMATITIS 03/21/2008 09/20/2020 COLON POLYP 05/27/2007 05/02/2014 Overview: 05/27/2007 - Needs a repeat in three years HYPERGLYCEMIA 06/09/2006 07/09/2016 Unspecified disorder of prostate 02/19/2006 07/09/2016 Nocturia 02/19/2006 07/09/2016 Carotid stenosis 10/08/2019 documented as of this encounter (statuses as of 09/03/2022) [facility] History of Past illness Narrative* Problem Noted Date Resolved Date Elevated hemoglobin 08/01/2017 03/26/2021 DM w/o complication type II 12/14/201004/23 Last Assessment & Plan: [facility] repeat lab 6.8 for Hgba1c. Prior hx of borderline levels last year. Previously had seen a health aide at [facility] while admitted. BPH (benign prostatic hypertrophy) 08/16/2010 07/09/2016 HAND DERMATITIS 03/21/2008 09/20/2020 COLON POLYP 05/27/2007 05/02/2014 Overview: 05/27/2007 - Needs a repeat in three years HYPERGLYCEMIA 06/09/2006 07/09/2016 Unspecified disorder of prostate 02/19/2006 07/09/2016 Nocturia 02/19/2006 07/09/2016 Carotid stenosis 10/08/2019 documented as of this encounter (statuses as of 09/26/2022) [facility] History of Past illness Narrative* Problem Noted Date Resolved Date Elevated hemoglobin 08/01/2017 03/26/2021 DM w/o complication type II 12/14/201004/23 Last Assessment & Plan: [facility] repeat lab 6.8 for Hgba1c. Prior hx of borderline levels last year. Previously had seen a health aide at [facility] while admitted. BPH (benign prostatic hypertrophy) 08/16/2010 07/09/2016 HAND DERMATITIS 03/21/2008 09/20/2020 COLON POLYP 05/27/2007 05/02/2014 Overview: 05/27/2007 - Needs a repeat in three years HYPERGLYCEMIA 06/09/2006 07/09/2016 Unspecified disorder of prostate 02/19/2006 07/09/2016 Nocturia 02/19/2006 07/09/2016 Carotid stenosis 10/08/2019 documented as of this encounter (statuses as of 09/27/2022) [facility] History of Past illness Narrative* Problem Noted Date Resolved Date Elevated hemoglobin 08/01/2017 03/26/2021 DM w/o complication type II 12/14/201004/23 Last Assessment & Plan: [facility] repeat lab 6.8 for Hgba1c. Prior hx of borderline levels last year. Previously had seen a health aide at [facility] while admitted. BPH (benign prostatic hypertrophy) 08/16/2010 07/09/2016 HAND DERMATITIS 03/21/2008 09/20/2020 COLON POLYP 05/27/2007 05/02/2014 Overview: 05/27/2007 - Needs a repeat in three years HYPERGLYCEMIA 06/09/2006 07/09/2016 Unspecified disorder of prostate 02/19/2006 07/09/2016 Nocturia 02/19/2006 07/09/2016 Carotid stenosis 10/08/2019 documented as of this encounter (statuses as of 09/27/2022) [facility] History of Past illness Narrative* Problem Noted Date Resolved Date Elevated hemoglobin 08/01/2017 03/26/2021 DM w/o complication type II 12/14/201004/23 Last Assessment & Plan: [facility] repeat lab 6.8 for Hgba1c. Prior hx of borderline levels last year. Previously had seen a health aide at [facility] while admitted. BPH (benign prostatic hypertrophy) 08/16/2010 07/09/2016 HAND DERMATITIS 03/21/2008 09/20/2020 COLON POLYP 05/27/2007 05/02/2014 Overview: 05/27/2007 - Needs a repeat in three years HYPERGLYCEMIA 06/09/2006 07/09/2016 Unspecified disorder of prostate 02/19/2006 07/09/2016 Nocturia 02/19/2006 07/09/2016 Carotid stenosis 10/08/2019 documented as of this encounter (statuses as of 10/30/2022) [facility] History of Past illness Narrative* Problem Noted Date Resolved Date Elevated hemoglobin 08/01/2017 03/26/2021 DM w/o complication type II 12/14/201004/23 Last Assessment & Plan: [facility] repeat lab 6.8 for Hgba1c. Prior hx of borderline levels last year. Previously had seen a health aide at [facility] while admitted. BPH (benign prostatic hypertrophy) 08/16/2010 07/09/2016 HAND DERMATITIS 03/21/2008 09/20/2020 COLON POLYP 05/27/2007 05/02/2014 Overview: 05/27/2007 - Needs a repeat in three years HYPERGLYCEMIA 06/09/2006 07/09/2016 Unspecified disorder of prostate 02/19/2006 07/09/2016 Nocturia 02/19/2006 07/09/2016 Carotid stenosis 10/08/2019 documented as of this encounter (statuses as of 12/17/2022) [facility] History of Past illness Narrative* Problem Noted Date Resolved Date Elevated hemoglobin 08/01/2017 03/26/2021 DM w/o complication type II 12/14/201004/23 Last Assessment & Plan: [facility] repeat lab 6.8 for Hgba1c. Prior hx of borderline levels last year. Previously had seen a health aide at [facility] while admitted. BPH (benign prostatic hypertrophy) 08/16/2010 07/09/2016 HAND DERMATITIS 03/21/2008 09/20/2020 COLON POLYP 05/27/2007 05/02/2014 Overview: 05/27/2007 - Needs a repeat in three years HYPERGLYCEMIA 06/09/2006 07/09/2016 Unspecified disorder of prostate 02/19/2006 07/09/2016 Nocturia 02/19/2006 07/09/2016 Carotid stenosis 10/08/2019 documented as of this encounter (statuses as of 12/26/2022) [facility] History of Past illness Narrative* Problem Noted Date Diagnosed Date Resolved Date Elevated hemoglobin 08/01/2017 03/26/20 21 DM w/o complication type II 12/14/2010 05/02/2014 Last Assessment & Plan: [facility] repeat lab 6.8 for Hgba1c. Prior hx of borderline levels last year. Previously had seen a health aide at [facility] while admitted. BPH (benign prostatic hypertrophy) 08/16/2010 07/09/2016 HAND DERMATITIS 03/21/2008 09/20/2020 COLON POLYP 05/27/2007 05/02/2014 Overview: 05/27/2007 - Needs a repeat in three years HYPERGLYCEMIA 06/09/2006 07/09/2016 Unspecified disorder of prostate 02/19/2006 07/09/2016 Nocturia 02/19/2006 07/09/2016 Carotid stenosis 10/08/2019 documented as of this encounter (statuses as of 02/04/2023) [facility] History of Past illness Narrative* Problem Noted Date Diagnosed Date Resolved Date Elevated hemoglobin 08/01/2017 03/26/20 21 DM w/o complication type II 12/14/2010 05/02/2014 Last Assessment & Plan: [facility] repeat lab 6.8 for Hgba1c. Prior hx of borderline levels last year. Previously had seen a health aide at [facility] while admitted. BPH (benign prostatic hypertrophy) 08/16/2010 07/09/2016 HAND DERMATITIS 03/21/2008 09/20/2020 COLON POLYP 05/27/2007 05/02/2014 Overview: 05/27/2007 - Needs a repeat in three years HYPERGLYCEMIA 06/09/2006 07/09/2016 Unspecified disorder of prostate 02/19/2006 07/09/2016 Nocturia 02/19/2006 07/09/2016 Carotid stenosis 10/08/2019 documented as of this encounter (statuses as of 02/14/2023) [facility] History of Past illness Narrative* Problem Noted Date Diagnosed Date Resolved Date Elevated hemoglobin 08/01/2017 03/26/20 21 DM w/o complication type II 12/14/2010 05/02/2014 Last Assessment & Plan: [facility] repeat lab 6.8 for Hgba1c. Prior hx of borderline levels last year. Previously had seen a health aide at [facility] while admitted. BPH (benign prostatic hypertrophy) 08/16/2010 07/09/2016 HAND DERMATITIS 03/21/2008 09/20/2020 COLON POLYP 05/27/2007 05/02/2014 Overview: 05/27/2007 - Needs a repeat in three years HYPERGLYCEMIA 06/09/2006 07/09/2016 Unspecified disorder of prostate 02/19/2006 07/09/2016 Nocturia 02/19/2006 07/09/2016 Carotid stenosis 10/08/2019 documented as of this encounter (statuses as of 04/02/2023) [facility] History of Past illness Narrative* Problem Noted Date Diagnosed Date Resolved Date Elevated hemoglobin 08/01/2017 03/26/20 21 DM w/o complication type II 12/14/2010 05/02/2014 Last Assessment & Plan: [facility] repeat lab 6.8 for Hgba1c. Prior hx of borderline levels last year. Previously had seen a health aide at [facility] while admitted. BPH (benign prostatic hypertrophy) 08/16/2010 07/09/2016 HAND DERMATITIS 03/21/2008 09/20/2020 COLON POLYP 05/27/2007 05/02/2014 Overview: 05/27/2007 - Needs a repeat in three years HYPERGLYCEMIA 06/09/2006 07/09/2016 Unspecified disorder of prostate 02/19/2006 07/09/2016 Nocturia 02/19/2006 07/09/2016 Carotid stenosis 10/08/2019 documented as of this encounter (statuses as of 08/14/2023) [facility] History of Past illness Narrative* Problem Noted Date Diagnosed Date Resolved Date Elevated hemoglobin 08/01/2017 03/26/20 21 DM w/o complication type II 12/14/2010 05/02/2014 Last Assessment & Plan: [facility] repeat lab 6.8 for Hgba1c. Prior hx of borderline levels last year. Previously had seen a health aide at [facility] while admitted. BPH (benign prostatic hypertrophy) 08/16/2010 07/09/2016 HAND DERMATITIS 03/21/2008 09/20/2020 COLON POLYP 05/27/2007 05/02/2014 Overview: 05/27/2007 - Needs a repeat in three years HYPERGLYCEMIA 06/09/2006 07/09/2016 Unspecified disorder of prostate 02/19/2006 07/09/2016 Nocturia 02/19/2006 07/09/2016 Carotid stenosis 10/08/2019 documented as of this encounter (statuses as of 09/22/2023) [facility] History of Past illness Narrative* Problem Noted Date Diagnosed Date Resolved Date Elevated hemoglobin 08/01/2017 03/26/20 21 DM w/o complication type II 12/14/2010 05/02/2014 Last Assessment & Plan: [facility] repeat lab 6.8 for Hgba1c. Prior hx of borderline levels last year. Previously had seen a health aide at [facility] while admitted. BPH (benign prostatic hypertrophy) 08/16/2010 07/09/2016 HAND DERMATITIS 03/21/2008 09/20/2020 COLON POLYP 05/27/2007 05/02/2014 Overview: 05/27/2007 - Needs a repeat in three years HYPERGLYCEMIA 06/09/2006 07/09/2016 Unspecified disorder of prostate 02/19/2006 07/09/2016 Nocturia 02/19/2006 07/09/2016 Carotid stenosis 10/08/2019 documented as of this encounter (statuses as of 10/03/2023) [facility] Diogenes Hermosillo [facility] April 24, 2023 12:57am Note Date/Time April 24, 2023 1 2:51am [facility] Medical Records Department [address] [place] [address] Emergency Department Summary 04/24/23 MR#: [id number] Acct: [id number] Name: APRIL QUESADA Rep #:[id number] From: Diogenes Hermosillo DO PCP: Dr. Enrrique Carmona MD Status:REG E R Location: ED HPI History of Present Illness Chief Complaint: Dizziness Informant: patient and family Narrative Narrative: Patient is a 82-year-old male with past medical history of persistent A-fib on Xarelto with hypertension and hyperlipidemia. He and family state that his wifewho has dementia was somehow able to get a hold of his car keys and she left thehouse and when driving and they cannot find her. He states that they contacted authorities and on the family numbers and despite looking have not been successful in finding the patient's . The patient states that 1 to 2 hours after this event and the fact he could not find her he started to get nervous/anxious and began feeling lightheaded and dizzy. His symptoms not improved and secondary to this he was brought to the hospital for evaluation [facility] Medical History Anxiety Bilateral carotid artery stenosis BPH w urinary obs/LUTS Depression Essential hypertension Hyperlipidemia Obesity Persistent atrial fibrillation Rosacea Type 2 diabetes mellitus without complications Home Medications clonidine HCl 0.1 mg tablet 0.1 mg PO DAILY 11/29/16 [History Last Taken 02/12/17] lisinopril 40 mg tablet 40 mg PO DAILY 11/29/16 [History Last Taken 02/12/17] lorazepam 0.5 mg tablet 0.5 mg PO DAILY PRN PRN Anxiety 01/13/17 [History Last Taken Unknown] aspirin 81 mg tablet,delayed release (Adult Aspirin Regimen) 81 mg PO DAILY 08/28/18 [History Last Taken Unknown] amlodipine 10 mg tablet 10 mg PO DAILY 09/11/18 [History Last Taken Unknown] cholecalciferol (vitamin D3) 50 mcg (2,000 unit) capsule 2,000 unit PO DAILY 04/12/19 [History Last Taken Unknown] allopurinol 100 mg tablet 100 mg PO DAILY 03/31/22 [History Last Taken Unknown] atorvastatin 20 mg tablet 20 mg PO DAILY 03/31/22 [History Last Taken Unknown] furosemide 20 mg tablet 20 mg PO DAILY 03/31/22 [History Last Taken Unknown] metformin 500 mg tablet,extended release 24 hr 500 mg PO DAILY 03/31/22 [History Last Taken Unknown] carvedilol 3.125 mg tablet (Coreg) 3.125 mg PO BID #180 tabs 08/23/22 [Rx Last Taken Unknown] rivaroxaban 20 mg tablet (Xarelto) 20 mg PO QDAY #30 tabs 11/04/22 [Rx Last Taken Unknown] Allergy/AdvReac Type Severity Reaction Status Date / Time Cephalosporins Allergy Rash Verified 04/23/23 23:11 doxycycline Allergy Rash Verified 04/23/23 23:11 simvastatin [From Zocor] AdvReac Intermediate Myalgias Verified 04/23/23 23:11 Family History Daughter Atrial tachycardia RFA Brother CAD (coronary artery disease) Surgical History H/O left knee surgery History of cardioversion (02/12/17) History of left heart catheterization (01/16/17) History of tonsillectomy and adenoidectomy Social History household members: spouse Smoking Status: Former smoker how long ago did patient quit smokin years ago alcohol intake: never substance use type: does not use caffeine: Yes Type: coffee Number of servings: 2 ROS ROS ED Constitutional Constitutional ED: Denies chills or fever(s) Eyes Eyes: Denies change in vision ENT ENT ED: Denies sore throat Cardiovascular Cardiovascular: Reports racing heartbeat; Denies chest pain or palpitations Respiratory/Chest Respiratory/Chest: Denies cough or dyspnea Gastrointestinal Gastrointestinal: Denies abdominal pain, diarrhea, nausea or vomiting Genitourinary Genitourinary ED: Denies dysuria Musculoskeletal Musculoskeletal: Denies myalgias Integumentary Denies rash Neurologic Neurologic: Reports other Details: Positive dizziness ; Denies headache(s) Psychiatric Psychiatric: Reports anxiety Hematologic/Lymphatic Hematologic/Lymphatic: Reports easy bleeding and easy bruising EXAM Physical Exam Const Vital Signs: 04/23/23 23:09 04/23/23 23:40 Temperature 97.9 F Temperature Source Temporal Pulse Rate 133 H Respiratory Rate 18 Blood Pressure 178/99 H Blood Pressure Mean 125 Pulse Ox 99 97 Oxygen Delivery Method Room Air Room Air Positive well nourished and well developed General Appearance ED: well developed; Negative for pallor HEENT Reports moist mucous membranes Eyes PERRL and EOMs intact bilaterally General Eye ED: Negative for pale conjunctiva or scleral icterus Neck supple Neck Narrative: No nuchal rigidity or meningeal signs noted Resp normal respiratory effort and clear to auscultation bilaterally Cardio regular rate Rate: other Other Details: Patient has an irregularly irregular rhythm with regular rate consistent with atrial fibrillation GI normal to inspection, nondistended, normoactive bowel sounds, non-tender, non-distended and no masses GI Narrative: No voluntary guarding or rigidity No pulsatile mass or fluid wave Auscultation: normoactive bowel sounds Palpation: soft Extremity normal to inspection Neuro oriented x3, CN's II-XII intact bilaterally and no sensory deficits noted Neuro Narrative: Cranial nerves II through XII are grossly intact there are no focal neurologic deficits No pronator drift no dysmetria no truncal ataxia No nystagmus noted Sensorium / Orientation: alert Motor Exam: strength 5/5 throughout Psych Psych Narrative: Patient has a nervous/anxious affect Skin no rashes or lesions noted General Skin Exam: Negative for jaundice or pallor MDM MDM MDM Narrative Medical decision making narrative: Patient presented to the ER hypertensive but otherwise with stable vitals. He is in atrial fibrillation but has a past medical history of this is anticoagulated on Xarelto and his heart rate is totally normal at 97. His symptoms only began after his social situation and are most consistent with acute anxiety. However as he could have had A-fib with RVR or potential anemia or cute kidney injury or left leg derangement causing his symptoms I did elect to check basic laboratory values. I discussed with patient that as he is on Xarelto there is a possibility of a spontaneous brain bleed leading to his dizziness but as he does not have ataxia drift chances for this are low and therefore patient did not want a head CT obtained. The patient was given Ativanand had improvement of his symptoms. At this time as his overall work-up is negative and vitals stable and his neurologic exam remains normal it appears this is most likely anxiety reaction and patient is safe for discharge as symptoms have improved and he will stay with family this evening History & Record Review Discussion w/independent historian: Patient and Family Lab Data Attestation: I reviewed the patient's lab results. Labs: Laboratory Results - last 24 hr 04/23/23 23:28 WBC 10.1 RBC 5.39 Hgb 17.4 H Hct 50.0 MCV 92.8 MCH 32.3 H MCHC 34.8 RDW Std Deviation 45.8 H RDW Coeff of Alli 13.4 Plt Count 222 MPV 9.4 Immature Gran % (Auto) 0.300 Neut % (Auto) 75.6 H Lymph % (Auto) 15.5 L Sandoval % (Auto) 7.8 Eos % (Auto) 0.1 Baso % (Auto) 0.7 Absolute Neuts (auto) 7.6 Absolute Lymphs (auto) 1.56 Nucleated RBC % 0 PT 16.1 H INR 1.3 APTT 34.5 Sodium 136 Potassium 4.4 Chloride 103 Carbon Dioxide 26.0 Anion Gap 7 BUN 19 H Creatinine 0.98 Estim Creat Clear Calc 55.26 Est GFR (MDRD) Af Amer 94 Est GFR (MDRD) Non-Af 78 BUN/Creatinine Ratio 19.5 Glucose 199 H Calcium 9.4 Magnesium 2.3 Discharge Plan Triage Chief Complaint: Dizziness ED Provider: Diogenes Hermosillo Dx/Rx/DC Orders Clinical Impression: Dizziness, Persistent atrial fibrillation, Anxiety reaction, Current use of senior care anticoagulation, Essential hypertension Instructions: ED Dizziness, Uncertain Cause Prescriptions: No Action aspirin [Adult Aspirin Regimen] 81 mg tablet,delayed release (DR/EC) 81 mg PO DAILY cholecalciferol (vitamin D3) 2,000 unit capsule 2,000 unit PO DAILY amlodipine 10 mg tablet 10 mg PO DAILY clonidine HCl 0.1 MG tablet 0.1 mg PO DAILY lisinopril 40 MG tablet 40 mg PO DAILY lorazepam 0.5 MG tablet 0.5 mg PO DAILY PRN PRN (Reason: Anxiety) allopurinol 100 mg Tablet 100 mg PO DAILY atorvastatin 20 mg tablet 20 mg PO DAILY Patient Comments: Take 1 tablet by mouth daily at bedtime. For cholesterol. furosemide 20 mg tablet 20 mg PO DAILY Patient Comments: Take 1 tablet by mouth once daily. metformin 500 mg tablet extended release 24 hr 500 mg PO DAILY Patient Comments: Take 1 tablet by mouth daily with breakfast. carvedilol [Coreg] 3.125 mg tablet 3.125 mg PO BID Qty: 180 3RF Rx Instructions: must administer with a meal/food Xarelto 20 mg tablet 20 mg PO QDAY Qty: 30 12RF Primary Care Provider: Enrrique Carmona Referrals: Enrrique Carmona MD [Primary Care Provider] - Activity Restrictions/Additional Instructions: Your work-up today showed no acute findings and your heart rhythm is at her baseline which is atrial fibrillation but rate is controlled. I do feel your symptoms are related to acute anxiety based on the situation that has occurred this evening. You may take your home lorazepam as directed to help control any further anxiety symptoms and if necessary you may add [id number] Benadryl. If you feel that your heart is racing and persistently elevated at a value of approximately 150 or you have difficulty standing or walking or any further concerns please return to the ER for repeat evaluation. Disposition Disposition: Home, Self Care What to do if you have Problems For any increased pain, shortness of breath, bleeding, nausea or vomiting, chestpain, or any unexpected problems, contact your Primary Care Provider. Call [facility] ([phone]) or report to the closest Emergency Room. Call 911 if necessary. 04/24/23 0057 <Electronically signed by Diogenes Hermosillo DO> Cosigner Signature (if applicable): CC: Dr. Enrrique Carmona MD ~ Signed [facility] Work Phone: Evaluation note* Diagnosis SOB (shortness of breath)- Primary Shortness of breath Anxiety Anxiety state, unspecified Medication monitoring encounter Encounter for therapeutic drug monitoring Advance care planning Other specified counseling Essential hypertension Unspecified essential hypertension Paroxysmal atrial fibrillation (HCC) Atrial fibrillation Mixed hyperlipidemia Type 2 diabetes mellitus without complication, without long-term current use of insulin (HCC) Bilateral carotid artery stenosis Occlusion and stenosis of carotid artery without mention of cerebral infarction [facility] Congestive heart failure, unspecified HF chronicity, unspecified heart failure type (HCC)- Primary Type 2 diabetes mellitus without complication, without long-term current use of insulin (HCC) Mixed hyperlipidemia [facility] Diagnosis Anxiety Anxiety state, unspecified Medication monitoring encounter Encounter for therapeutic drug monitoring [facility] Acute foreign body of ear canal, left, initial encounter- Primary [facility] Diagnosis Essential hypertension Unspecified essential hypertension [facility] Diagnosis Essential hypertension- Primary Unspecified essential hypertension Need for influenza vaccination Need for prophylactic vaccination and inoculation against influenza Mixed hyperlipidemia Type 2 diabetes mellitus without complication, without long-term current use of insulin (HCC) Gout with manifestations Gout with other specified manifestations Bilateral carotid artery stenosis Occlusion and stenosis of carotid artery without mention of cerebral infarction Paroxysmal atrial fibrillation (HCC) Atrial fibrillation documented in this encounter [facility] note* Diagnosis COVID-19- Primary documented in this encounter [facility] note* Diagnosis COVID-19 documented in this encounter [facility]* Diagnosis Onset Date Resolution Status Bilateral carotid artery stenosis chronic Hyperlipidemia chronic Persistent atrial fibrillation [facility] Work Phone: evaluation note* Diagnosis Anxiety Anxiety state, unspecified Medication monitoring encounter Encounter for therapeutic drug monitoring documented in this encounter [facility] note* Diagnosis Essential hypertension Unspecified essential hypertension documented in this encounter [facility] note* Diagnosis Essential hypertension- Primary Unspecified essential hypertension Congestive heart failure, unspecified HF chronicity, unspecified heart failure type (HCC) Type 2 diabetes mellitus without complication, without long-term current use of insulin (HCC) Paroxysmal atrial fibrillation (HCC) Atrial fibrillation Mixed hyperlipidemia Gout with manifestations Gout with other specified manifestations Anxiety state Anxiety state, unspecified Noncompliance Personal history of noncompliance with medical treatment, presenting hazards to health documented in this encounter [facility] note* Diagnosis Type 2 diabetes mellitus without complication, without long-term current use of insulin (HCC)- Primary documented in this encounter [facility] note* Diagnosis Type 2 diabetes mellitus without complication, without long-term current use of insulin (HCC) documented in this encounter [facility] note* Diagnosis Rash- Primary Rash and other nonspecific skin eruption documented in this encounter [facility] note* Diagnosis Anxiety Anxiety state, unspecified Medication monitoring encounter Encounter for therapeutic drug monitoring documented in this encounter [facility] note* Diagnosis Type 2 diabetes mellitus without complication, without long-term current use of insulin (HCC)- Primary Mixed hyperlipidemia Paroxysmal atrial fibrillation (HCC) Atrial fibrillation Essential hypertension Unspecified essential hypertension History of skin cancer Personal history of other malignant neoplasm of skin Chronic depression Depressive disorder, not elsewhere classified Bilateral carotid artery stenosis Occlusion and stenosis of carotid artery without mention of cerebral infarction documented in this encounter [facility] noteNo assessment information availableWWay[facility] Work Phone: Evaluation note* Diagnosis Anxiety Anxiety state, unspecified Medication monitoring encounter Encounter for therapeutic drug monitoring documented in this encounter [facility] note* Diagnosis Type 2 diabetes mellitus without complication, without long-term current use of insulin (HCC)- Primary History of skin cancer Personal history of other malignant neoplasm of skin Paroxysmal atrial fibrillation (HCC) Atrial fibrillation Mixed hyperlipidemia Essential hypertension Unspecified essential hypertension Bilateral carotid artery stenosis Occlusion and stenosis of carotid artery without mention of cerebral infarction Chronic depression Depressive disorder, not elsewhere classified Anxiety state Anxiety state, unspecified Reactive depression Dysthymic disorder documented in this encounter [facility] note* Diagnosis Anxiety with depression- Primary [facility] Diagnosis Congestive heart failure, unspecified HF chronicity, unspecified heart failure type (HCC) documented in this encounter [facility] note* Diagnosis Type 2 diabetes mellitus without complication, without long-term current use of insulin (HCC) documented in this encounter [facility] note* Diagnosis Blood in stool- Primary Weight loss Loss of weight Left upper quadrant abdominal mass Abdominal or pelvic swelling, mass, or lump, left upper quadrant Intra-abdominal and pelvic swelling, mass and lump, unspecified site [facility] Diagnosis Weight loss Loss of weight Left upper quadrant abdominal mass Abdominal or pelvic swelling, mass, or lump, left upper quadrant Intra-abdominal and pelvic swelling, mass and lump, unspecified site [facility] Diagnosis Benign prostatic hyperplasia without lower urinary tract symptoms- Primary Screening for prostate cancer Special screening for malignant neoplasm of prostate Weight loss Loss of weight 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) [facility] Diagnosis Anxiety Anxiety state, unspecified Medication monitoring encounter Encounter for therapeutic drug monitoring documented in this encounter [facility] note* Diagnosis Disorder of adrenal gland (HCC)- Primary Unspecified disorder of adrenal glands [facility]* Diagnosis 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)- Primary Anxiety Anxiety state, unspecified Medication monitoring encounter Encounter for therapeutic drug monitoring Rectal bleeding Hemorrhage of rectum and anus Weight loss Loss of weight documented in this encounter [facility] note* Diagnosis Essential hypertension Unspecified essential hypertension [facility] Diagnosis Rectal bleeding- Primary Hemorrhage of rectum and anus Weight loss Loss of weight Left upper quadrant abdominal mass Abdominal or pelvic swelling, mass, or lump, left upper quadrant [facility] Diagnosis Adrenal mass (HCC)- Primary Unspecified disorder of adrenal glands Left upper quadrant abdominal mass Abdominal or pelvic swelling, mass, or lump, left upper quadrant Weight loss Loss of weight Rectal bleeding Hemorrhage of rectum and anus [facility]* Diagnosis HYPERTENSION NOS- Primary Unspecified essential hypertension History of colonic polyps Personal history of colonic polyps HYPERLIPIDEMIA NEC/NOS Other and unspecified hyperlipidemia Skin lesion Unspecified disorder of skin and subcutaneous tissue Impaired fasting glucose DM w/o complication type II- Primary Type II or unspecified type diabetes mellitus without mention of complication, not stated as uncontrolled HYPERLIPIDEMIA NEC/NOS Other and unspecified hyperlipidemia Vision disturbance Unspecified visual disturbance Degeneration of lumbar intervertebral disc- Primary Degeneration of lumbar or lumbosacral intervertebral disc Anxiety with depression Chronic insomnia Insomnia, unspecified Type 2 diabetes mellitus without complication, without long-term current use of insulin (HCC) Weight loss Loss of weight 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) Bilateral leg edema Edema Anxiety state Anxiety state, unspecified documented in this encounter [facility] note* Diagnosis HYPERTENSION NOS- Primary Unspecified essential hypertension History of colonic polyps Personal history of colonic polyps HYPERLIPIDEMIA NEC/NOS Other and unspecified hyperlipidemia Skin lesion Unspecified disorder of skin and subcutaneous tissue Impaired fasting glucose DM w/o complication type II- Primary Type II or unspecified type diabetes mellitus without mention of complication, not stated as uncontrolled HYPERLIPIDEMIA NEC/NOS Other and unspecified hyperlipidemia Vision disturbance Unspecified visual disturbance 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)- Primary 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) Type 2 diabetes mellitus without complication, without long-term current use of insulin (HCC) Paroxysmal atrial fibrillation (HCC) Atrial fibrillation Mixed hyperlipidemia Adrenal mass greater than 4 cm in diameter (HCC)- Primary Adrenal mass greater than 4 cm in diameter (HCC) [facility]* Diagnosis HYPERTENSION NOS- Primary Unspecified essential hypertension History of colonic polyps Personal history of colonic polyps HYPERLIPIDEMIA NEC/NOS Other and unspecified hyperlipidemia Skin lesion Unspecified disorder of skin and subcutaneous tissue Impaired fasting glucose DM w/o complication type II- Primary Type II or unspecified type diabetes mellitus without mention of complication, not stated as uncontrolled HYPERLIPIDEMIA NEC/NOS Other and unspecified hyperlipidemia Vision disturbance Unspecified visual disturbance 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)- Primary 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) Type 2 diabetes mellitus without complication, without long-term current use of insulin (HCC) Paroxysmal atrial fibrillation (HCC) Atrial fibrillation Mixed hyperlipidemia 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)- Primary Type 2 diabetes mellitus without complication, without long-term current use of insulin (HCC) Bilateral leg edema Edema Anxiety state Anxiety state, unspecified Essential hypertension Unspecified essential hypertension Adrenal mass greater than 4 cm in diameter (HCC) documented in this encounter [facility] note* Diagnosis HYPERTENSION NOS- Primary Unspecified essential hypertension History of colonic polyps Personal history of colonic polyps HYPERLIPIDEMIA NEC/NOS Other and unspecified hyperlipidemia Skin lesion Unspecified disorder of skin and subcutaneous tissue Impaired fasting glucose DM w/o complication type II- Primary Type II or unspecified type diabetes mellitus without mention of complication, not stated as uncontrolled HYPERLIPIDEMIA NEC/NOS Other and unspecified hyperlipidemia Vision disturbance Unspecified visual disturbance 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)- Primary 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) Type 2 diabetes mellitus without complication, without long-term current use of insulin (HCC) Paroxysmal atrial fibrillation (HCC) Atrial fibrillation Mixed hyperlipidemia Lightheaded- Primary Dizziness and giddiness 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) Type 2 diabetes mellitus without complication, without long-term current use of insulin (HCC) Weight loss Loss of weight Grief reaction Adjustment disorder with depressed mood Essential hypertension Unspecified essential hypertension Adrenal mass greater than 4 cm in diameter (HCC) [facility] Diagnosis HYPERTENSION NOS- Primary Unspecified essential hypertension History of colonic polyps Personal history of colonic polyps HYPERLIPIDEMIA NEC/NOS Other and unspecified hyperlipidemia Skin lesion Unspecified disorder of skin and subcutaneous tissue Impaired fasting glucose DM w/o complication type II- Primary Type II or unspecified type diabetes mellitus without mention of complication, not stated as uncontrolled HYPERLIPIDEMIA NEC/NOS Other and unspecified hyperlipidemia Vision disturbance Unspecified visual disturbance 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)- Primary 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) Type 2 diabetes mellitus without complication, without long-term current use of insulin (HCC) Paroxysmal atrial fibrillation (HCC) Atrial fibrillation Mixed hyperlipidemia Pre-operative examination- Primary Preoperative examination, unspecified Essential hypertension Unspecified essential hypertension Mixed hyperlipidemia Paroxysmal atrial fibrillation (HCC) Atrial fibrillation Dizziness Dizziness and giddiness Bilateral carotid artery stenosis Occlusion and stenosis of carotid artery without mention of cerebral infarction Chronic depression Depressive disorder, not elsewhere classified History of skin cancer Personal history of other malignant neoplasm of skin Type 2 diabetes mellitus without complication, without long-term current use of insulin (HCC) * Assessment & Plan Note - Niecy Washington APRN.CNP - 03/05/2024 6:39 AM EDT Associated Problem(s): Diabetes mellitus type 2, uncomplicated (HCC) Assessment: controlled on oral agent Hemoglobin A1C (%) Date Value 03/03/2024 6.7 03/26/2021 6.9 * Assessment & Plan Note - Niecy Washington APRN.CNP - 03/05/2024 6:39 AM EDT Associated Problem(s): History of skin cancer Assessment: SCC s/p excision * Assessment & Plan Note - Niecy Washington APRN.CNP - 03/05/2024 6:39 AM EDT Associated Problem(s): Chronic depression Assessment: worsening 2/2 passing. Starting to take Remeron now as prescribed. Denies SI. * Assessment & Plan Note - Niecy Washington APRN.CNP - 03/05/2024 6:38 AM EDT Associated Problem(s): Hypertrophy of prostate without urinary obstruction and other lower urinary tract symptoms (LUTS) Assessment: controlled on rx * Assessment & Plan Note - Niecy Washington APRN.CNP - 03/05/2024 6:38 AM EDT Associated Problem(s): Bilateral carotid artery stenosis Assessment: checked by cardiology 06/13, no surgical intervention, medically managed * Assessment & Plan Note - Niecy Washington APRN.CNP - 03/05/2024 6:37 AM EDT Associated Problem(s): Dizziness Assessment: past intermittently, carotid US 2021, powderer aware. Pt states has had significantweight lost with 2/2 HPI and recent of his . Likely contributing. Pt to see PCP if meds needs adjusted. 03/04/24 Dr. Carmona ASSESSMENT/PLAN: 1. Lightheaded - ICD9: 780.4, ICD10: R42 (primary diagnosis) - seeing cardiology at 1 pm today. Defer to them. As long as they feel we are ok, still ok for surgery. Monitor intake and sugars while occurring. 2. 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) - ICD9: 255.8, ICD10: E27.8 - needs surgery. 3. Type 2 diabetes mellitus without complication, without long-term current use of insulin (HCC) - ICD9: Has been stable. 4. Weight loss - ICD9: 783.21, ICD10: R63.4 - likely related to his stress caring for his and then her passing coupled with the adrenal mass Remeron and surgery, likely will help. 5. Grief reaction - ICD9: 309.0, ICD10: F43.21 -as above 6. Essential hypertension - ICD9: 401.9, ICD10: I10 -getting rechecked by surgery today. Enrrique Carmona MD * Assessment & Plan Note - Niecy Washington APRN.CNP - 03/05/2024 6:34 AM EDT Associated Problem(s): Paroxysmal atrial fibrillation (HCC) Assessment: chronic, follows [facility], received clearance with [facility] instructions. Daily Xarelto * Assessment & Plan Note - Niecy Washington APRN.CNP - 03/05/2024 6:33 AM EDT Associated Problem(s): Mixed hyperlipidemia Assessment: c/w statin * Assessment & Plan Note - Niecy Washington APRN.CNP - 03/05/2024 6:32 AM EDT Associated Problem(s): Essential hypertension Assessment: on rx Last 14 BP Last 14 Encounter BP Readings: Date: BP: 03/03/2024 120/72 03/02/2024 138/78 02/13/2024 129/68 02/10/2024 134/68 01/23/2024 138/81 01/16/2024 118/62 01/05/2024 136/82 10/31/2023 130/62 10/03/2023 132/58 04/02/2023 121/78 12/26/2022 122/80 09/26/2022 124/68 04/29/2022 114/67 03/28/2022 142/70 [facility] Diagnosis HYPERTENSION NOS- Primary Unspecified essential hypertension History of colonic polyps Personal history of colonic polyps HYPERLIPIDEMIA NEC/NOS Other and unspecified hyperlipidemia Skin lesion Unspecified disorder of skin and subcutaneous tissue Impaired fasting glucose DM w/o complication type II- Primary Type II or unspecified type diabetes mellitus without mention of complication, not stated as uncontrolled HYPERLIPIDEMIA NEC/NOS Other and unspecified hyperlipidemia Vision disturbance Unspecified visual disturbance 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)- Primary 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) Type 2 diabetes mellitus without complication, without long-term current use of insulin (HCC) Paroxysmal atrial fibrillation (HCC) Atrial fibrillation Mixed hyperlipidemia Pre-operative examination- Primary Preoperative examination, unspecified Essential hypertension Unspecified essential hypertension Mixed hyperlipidemia Paroxysmal atrial fibrillation (HCC) Atrial fibrillation Dizziness Dizziness and giddiness Bilateral carotid artery stenosis Occlusion and stenosis of carotid artery without mention of cerebral infarction Chronic depression Depressive disorder, not elsewhere classified History of skin cancer Personal history of other malignant neoplasm of skin Type 2 diabetes mellitus without complication, without long-term current use of insulin (HCC) Major depressive disorder with current active episode, unspecified depression episode severity, unspecified whether recurrent- Primary Essential hypertension Unspecified essential hypertension Mixed hyperlipidemia Paroxysmal atrial fibrillation (HCC) Atrial fibrillation Malnutrition of moderate degree (HCC) Malnutrition of moderate degree Type 2 diabetes mellitus without complication, unspecified whether senior care insulin use (HCC) 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) Dizziness Dizziness and giddiness Chronic insomnia Insomnia, unspecified Congestive heart failure, unspecified HF chronicity, unspecified heart failure type ([facility]) [facility]* Diagnosis HYPERTENSION NOS- Primary Unspecified essential hypertension History of colonic polyps Personal history of colonic polyps HYPERLIPIDEMIA NEC/NOS Other and unspecified hyperlipidemia Skin lesion Unspecified disorder of skin and subcutaneous tissue Impaired fasting glucose DM w/o complication type II- Primary Type II or unspecified type diabetes mellitus without mention of complication, not stated as uncontrolled HYPERLIPIDEMIA NEC/NOS Other and unspecified hyperlipidemia Vision disturbance Unspecified visual disturbance 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)- Primary 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) Type 2 diabetes mellitus without complication, without long-term current use of insulin (HCC) Paroxysmal atrial fibrillation (HCC) Atrial fibrillation Mixed hyperlipidemia Pre-operative examination- Primary Preoperative examination, unspecified Essential hypertension Unspecified essential hypertension Mixed hyperlipidemia Paroxysmal atrial fibrillation (HCC) Atrial fibrillation Dizziness Dizziness and giddiness Bilateral carotid artery stenosis Occlusion and stenosis of carotid artery without mention of cerebral infarction Chronic depression Depressive disorder, not elsewhere classified History of skin cancer Personal history of other malignant neoplasm of skin Type 2 diabetes mellitus without complication, without long-term current use of insulin (HCC) Essential hypertension- Primary Unspecified essential hypertension Major depressive disorder with current active episode, unspecified depression episode severity, unspecified whether recurrent Chronic insomnia Insomnia, unspecified 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) documented in this encounter [facility] note* Diagnosis HYPERTENSION NOS- Primary Unspecified essential hypertension History of colonic polyps Personal history of colonic polyps HYPERLIPIDEMIA NEC/NOS Other and unspecified hyperlipidemia Skin lesion Unspecified disorder of skin and subcutaneous tissue Impaired fasting glucose DM w/o complication type II- Primary Type II or unspecified type diabetes mellitus without mention of complication, not stated as uncontrolled HYPERLIPIDEMIA NEC/NOS Other and unspecified hyperlipidemia Vision disturbance Unspecified visual disturbance SOB (shortness of breath) Shortness of breath Pre-operative examination- Primary Preoperative examination, unspecified Essential hypertension Unspecified essential hypertension Mixed hyperlipidemia Paroxysmal atrial fibrillation (HCC) Atrial fibrillation Dizziness Dizziness and giddiness Bilateral carotid artery stenosis Occlusion and stenosis of carotid artery without mention of cerebral infarction Chronic depression Depressive disorder, not elsewhere classified History of skin cancer Personal history of other malignant neoplasm of skin Type 2 diabetes mellitus without complication, without long-term current use of insulin (HCC) documented in this encounter [facility] note* Diagnosis HYPERTENSION NOS- Primary Unspecified essential hypertension History of colonic polyps Personal history of colonic polyps HYPERLIPIDEMIA NEC/NOS Other and unspecified hyperlipidemia Skin lesion Unspecified disorder of skin and subcutaneous tissue Impaired fasting glucose DM w/o complication type II- Primary Type II or unspecified type diabetes mellitus without mention of complication, not stated as uncontrolled HYPERLIPIDEMIA NEC/NOS Other and unspecified hyperlipidemia Vision disturbance Unspecified visual disturbance Wrist pain, acute, right Pre-operative examination- Primary Preoperative examination, unspecified Essential hypertension Unspecified essential hypertension Mixed hyperlipidemia Paroxysmal atrial fibrillation (HCC) Atrial fibrillation Dizziness Dizziness and giddiness Bilateral carotid artery stenosis Occlusion and stenosis of carotid artery without mention of cerebral infarction Chronic depression Depressive disorder, not elsewhere classified History of skin cancer Personal history of other malignant neoplasm of skin Type 2 diabetes mellitus without complication, without long-term current use of insulin (HCC) documented in this encounter [facility] note* Diagnosis HYPERTENSION NOS- Primary Unspecified essential hypertension History of colonic polyps Personal history of colonic polyps HYPERLIPIDEMIA NEC/NOS Other and unspecified hyperlipidemia Skin lesion Unspecified disorder of skin and subcutaneous tissue Impaired fasting glucose DM w/o complication type II- Primary Type II or unspecified type diabetes mellitus without mention of complication, not stated as uncontrolled HYPERLIPIDEMIA NEC/NOS Other and unspecified hyperlipidemia Vision disturbance Unspecified visual disturbance 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)- Primary 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) Type 2 diabetes mellitus without complication, without long-term current use of insulin (HCC) Paroxysmal atrial fibrillation (HCC) Atrial fibrillation Mixed hyperlipidemia Pre-operative examination- Primary Preoperative examination, unspecified Essential hypertension Unspecified essential hypertension Mixed hyperlipidemia Paroxysmal atrial fibrillation (HCC) Atrial fibrillation Dizziness Dizziness and giddiness Bilateral carotid artery stenosis Occlusion and stenosis of carotid artery without mention of cerebral infarction Chronic depression Depressive disorder, not elsewhere classified History of skin cancer Personal history of other malignant neoplasm of skin Type 2 diabetes mellitus without complication, without long-term current use of insulin (HCC) Essential hypertension Unspecified essential hypertension [facility] Diagnosis HYPERTENSION NOS- Primary Unspecified essential hypertension History of colonic polyps Personal history of colonic polyps HYPERLIPIDEMIA NEC/NOS Other and unspecified hyperlipidemia Skin lesion Unspecified disorder of skin and subcutaneous tissue Impaired fasting glucose DM w/o complication type II- Primary Type II or unspecified type diabetes mellitus without mention of complication, not stated as uncontrolled HYPERLIPIDEMIA NEC/NOS Other and unspecified hyperlipidemia Vision disturbance Unspecified visual disturbance 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)- Primary 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) Type 2 diabetes mellitus without complication, without long-term current use of insulin (HCC) Paroxysmal atrial fibrillation (HCC) Atrial fibrillation Mixed hyperlipidemia Pre-operative examination- Primary Preoperative examination, unspecified Essential hypertension Unspecified essential hypertension Mixed hyperlipidemia Paroxysmal atrial fibrillation (HCC) Atrial fibrillation Dizziness Dizziness and giddiness Bilateral carotid artery stenosis Occlusion and stenosis of carotid artery without mention of cerebral infarction Chronic depression Depressive disorder, not elsewhere classified History of skin cancer Personal history of other malignant neoplasm of skin Type 2 diabetes mellitus without complication, without long-term current use of insulin (HCC) Adrenal mass greater than 4 cm in diameter (HCC)- [facility] Diagnosis HYPERTENSION NOS- Primary Unspecified essential hypertension History of colonic polyps Personal history of colonic polyps HYPERLIPIDEMIA NEC/NOS Other and unspecified hyperlipidemia Skin lesion Unspecified disorder of skin and subcutaneous tissue Impaired fasting glucose DM w/o complication type II- Primary Type II or unspecified type diabetes mellitus without mention of complication, not stated as uncontrolled HYPERLIPIDEMIA NEC/NOS Other and unspecified hyperlipidemia Vision disturbance Unspecified visual disturbance 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)- Primary 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) Type 2 diabetes mellitus without complication, without long-term current use of insulin (HCC) Paroxysmal atrial fibrillation (HCC) Atrial fibrillation Mixed hyperlipidemia Pre-operative examination- Primary Preoperative examination, unspecified Essential hypertension Unspecified essential hypertension Mixed hyperlipidemia Paroxysmal atrial fibrillation (HCC) Atrial fibrillation Dizziness Dizziness and giddiness Bilateral carotid artery stenosis Occlusion and stenosis of carotid artery without mention of cerebral infarction Chronic depression Depressive disorder, not elsewhere classified History of skin cancer Personal history of other malignant neoplasm of skin Type 2 diabetes mellitus without complication, without long-term current use of insulin (HCC) Severe major depression (HCC)- Primary Major depressive disorder, single episode, severe, without mention of psychotic behavior Major depressive disorder with current active episode, unspecified depression episode severity, unspecified whether recurrent Cognitive impairment, mild, so stated Mild cognitive impairment, so stated Insomnia, unspecified type Abnormal grief reaction [facility] Diagnosis HYPERTENSION NOS- Primary Unspecified essential hypertension History of colonic polyps Personal history of colonic polyps HYPERLIPIDEMIA NEC/NOS Other and unspecified hyperlipidemia Skin lesion Unspecified disorder of skin and subcutaneous tissue Impaired fasting glucose DM w/o complication type II- Primary Type II or unspecified type diabetes mellitus without mention of complication, not stated as uncontrolled HYPERLIPIDEMIA NEC/NOS Other and unspecified hyperlipidemia Vision disturbance Unspecified visual disturbance 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)- Primary 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) Type 2 diabetes mellitus without complication, without long-term current use of insulin (HCC) Paroxysmal atrial fibrillation (HCC) Atrial fibrillation Mixed hyperlipidemia Pre-operative examination- Primary Preoperative examination, unspecified Essential hypertension Unspecified essential hypertension Mixed hyperlipidemia Paroxysmal atrial fibrillation (HCC) Atrial fibrillation Dizziness Dizziness and giddiness Bilateral carotid artery stenosis Occlusion and stenosis of carotid artery without mention of cerebral infarction Chronic depression Depressive disorder, not elsewhere classified History of skin cancer Personal history of other malignant neoplasm of skin Type 2 diabetes mellitus without complication, without long-term current use of insulin (HCC) Insomnia, unspecified type [facility]* Diagnosis HYPERTENSION NOS- Primary Unspecified essential hypertension History of colonic polyps Personal history of colonic polyps HYPERLIPIDEMIA NEC/NOS Other and unspecified hyperlipidemia Skin lesion Unspecified disorder of skin and subcutaneous tissue Impaired fasting glucose DM w/o complication type II- Primary Type II or unspecified type diabetes mellitus without mention of complication, not stated as uncontrolled HYPERLIPIDEMIA NEC/NOS Other and unspecified hyperlipidemia Vision disturbance Unspecified visual disturbance 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)- Primary 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) Type 2 diabetes mellitus without complication, without long-term current use of insulin (HCC) Paroxysmal atrial fibrillation (HCC) Atrial fibrillation Mixed hyperlipidemia Pre-operative examination- Primary Preoperative examination, unspecified Essential hypertension Unspecified essential hypertension Mixed hyperlipidemia Paroxysmal atrial fibrillation (HCC) Atrial fibrillation Dizziness Dizziness and giddiness Bilateral carotid artery stenosis Occlusion and stenosis of carotid artery without mention of cerebral infarction Chronic depression Depressive disorder, not elsewhere classified History of skin cancer Personal history of other malignant neoplasm of skin Type 2 diabetes mellitus without complication, without long-term current use of insulin (HCC) Essential hypertension- Primary Unspecified essential hypertension Mixed hyperlipidemia Paroxysmal atrial fibrillation (HCC) Atrial fibrillation Type 2 diabetes mellitus without complication, without long-term current use of insulin (HCC) 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) Left adrenal mass (HCC) Unspecified disorder of adrenal glands Dizziness Dizziness and giddiness Chronic depression Depressive disorder, not elsewhere classified Anxiety state Anxiety state, unspecified Bilateral carotid artery stenosis Occlusion and stenosis of carotid artery without mention of cerebral infarction Lightheadedness Dizziness and giddiness H/O total adrenalectomy (HCC) Personal history of surgery to other organs Fatigue, unspecified type Major depressive disorder with current active episode, unspecified depression episode severity, unspecified whether recurrent [facility] Diagnosis HYPERTENSION NOS- Primary Unspecified essential hypertension History of colonic polyps Personal history of colonic polyps HYPERLIPIDEMIA NEC/NOS Other and unspecified hyperlipidemia Skin lesion Unspecified disorder of skin and subcutaneous tissue Impaired fasting glucose DM w/o complication type II- Primary Type II or unspecified type diabetes mellitus without mention of complication, not stated as uncontrolled HYPERLIPIDEMIA NEC/NOS Other and unspecified hyperlipidemia Vision disturbance Unspecified visual disturbance 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)- Primary 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) Type 2 diabetes mellitus without complication, without long-term current use of insulin (HCC) Paroxysmal atrial fibrillation (HCC) Atrial fibrillation Mixed hyperlipidemia Pre-operative examination- Primary Preoperative examination, unspecified Essential hypertension Unspecified essential hypertension Mixed hyperlipidemia Paroxysmal atrial fibrillation (HCC) Atrial fibrillation Dizziness Dizziness and giddiness Bilateral carotid artery stenosis Occlusion and stenosis of carotid artery without mention of cerebral infarction Chronic depression Depressive disorder, not elsewhere classified History of skin cancer Personal history of other malignant neoplasm of skin Type 2 diabetes mellitus without complication, without long-term current use of insulin (HCC) Polycythemia- Primary Polycythemia vera Hyperkalemia Hyperpotassemia documented in this encounter [facility] note* Diagnosis HYPERTENSION NOS- Primary Unspecified essential hypertension History of colonic polyps Personal history of colonic polyps HYPERLIPIDEMIA NEC/NOS Other and unspecified hyperlipidemia Skin lesion Unspecified disorder of skin and subcutaneous tissue Impaired fasting glucose DM w/o complication type II- Primary Type II or unspecified type diabetes mellitus without mention of complication, not stated as uncontrolled HYPERLIPIDEMIA NEC/NOS Other and unspecified hyperlipidemia Vision disturbance Unspecified visual disturbance 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)- Primary 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) Type 2 diabetes mellitus without complication, without long-term current use of insulin (HCC) Paroxysmal atrial fibrillation (HCC) Atrial fibrillation Mixed hyperlipidemia Pre-operative examination- Primary Preoperative examination, unspecified Essential hypertension Unspecified essential hypertension Mixed hyperlipidemia Paroxysmal atrial fibrillation (HCC) Atrial fibrillation Dizziness Dizziness and giddiness Bilateral carotid artery stenosis Occlusion and stenosis of carotid artery without mention of cerebral infarction Chronic depression Depressive disorder, not elsewhere classified History of skin cancer Personal history of other malignant neoplasm of skin Type 2 diabetes mellitus without complication, without long-term current use of insulin (HCC) Cognitive impairment, mild, so stated Mild cognitive impairment, so stated documented in this encounter [facility] note* Diagnosis HYPERTENSION NOS- Primary Unspecified essential hypertension History of colonic polyps Personal history of colonic polyps HYPERLIPIDEMIA NEC/NOS Other and unspecified hyperlipidemia Skin lesion Unspecified disorder of skin and subcutaneous tissue Impaired fasting glucose DM w/o complication type II- Primary Type II or unspecified type diabetes mellitus without mention of complication, not stated as uncontrolled HYPERLIPIDEMIA NEC/NOS Other and unspecified hyperlipidemia Vision disturbance Unspecified visual disturbance 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)- Primary 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) Type 2 diabetes mellitus without complication, without long-term current use of insulin (HCC) Paroxysmal atrial fibrillation (HCC) Atrial fibrillation Mixed hyperlipidemia Pre-operative examination- Primary Preoperative examination, unspecified Essential hypertension Unspecified essential hypertension Mixed hyperlipidemia Paroxysmal atrial fibrillation (HCC) Atrial fibrillation Dizziness Dizziness and giddiness Bilateral carotid artery stenosis Occlusion and stenosis of carotid artery without mention of cerebral infarction Chronic depression Depressive disorder, not elsewhere classified History of skin cancer Personal history of other malignant neoplasm of skin Type 2 diabetes mellitus without complication, without long-term current use of insulin (HCC) Abnormal stool test- Primary Nonspecific abnormal finding in stool contents Hyperkalemia Hyperpotassemia Prediabetes Other abnormal glucose [facility]* Diagnosis HYPERTENSION NOS- Primary Unspecified essential hypertension History of colonic polyps Personal history of colonic polyps HYPERLIPIDEMIA NEC/NOS Other and unspecified hyperlipidemia Skin lesion Unspecified disorder of skin and subcutaneous tissue Impaired fasting glucose DM w/o complication type II- Primary Type II or unspecified type diabetes mellitus without mention of complication, not stated as uncontrolled HYPERLIPIDEMIA NEC/NOS Other and unspecified hyperlipidemia Vision disturbance Unspecified visual disturbance 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)- Primary 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) Type 2 diabetes mellitus without complication, without long-term current use of insulin (HCC) Paroxysmal atrial fibrillation (HCC) Atrial fibrillation Mixed hyperlipidemia Pre-operative examination- Primary Preoperative examination, unspecified Essential hypertension Unspecified essential hypertension Mixed hyperlipidemia Paroxysmal atrial fibrillation (HCC) Atrial fibrillation Dizziness Dizziness and giddiness Bilateral carotid artery stenosis Occlusion and stenosis of carotid artery without mention of cerebral infarction Chronic depression Depressive disorder, not elsewhere classified History of skin cancer Personal history of other malignant neoplasm of skin Type 2 diabetes mellitus without complication, without long-term current use of insulin (HCC) Hyperkalemia- Primary Hyperpotassemia Essential hypertension Unspecified essential hypertension Hypercalcemia [facility] Diagnosis HYPERTENSION NOS- Primary Unspecified essential hypertension History of colonic polyps Personal history of colonic polyps HYPERLIPIDEMIA NEC/NOS Other and unspecified hyperlipidemia Skin lesion Unspecified disorder of skin and subcutaneous tissue Impaired fasting glucose DM w/o complication type II- Primary Type II or unspecified type diabetes mellitus without mention of complication, not stated as uncontrolled HYPERLIPIDEMIA NEC/NOS Other and unspecified hyperlipidemia Vision disturbance Unspecified visual disturbance 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)- Primary 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) Type 2 diabetes mellitus without complication, without long-term current use of insulin (HCC) Paroxysmal atrial fibrillation (HCC) Atrial fibrillation Mixed hyperlipidemia Pre-operative examination- Primary Preoperative examination, unspecified Essential hypertension Unspecified essential hypertension Mixed hyperlipidemia Paroxysmal atrial fibrillation (HCC) Atrial fibrillation Dizziness Dizziness and giddiness Bilateral carotid artery stenosis Occlusion and stenosis of carotid artery without mention of cerebral infarction Chronic depression Depressive disorder, not elsewhere classified History of skin cancer Personal history of other malignant neoplasm of skin Type 2 diabetes mellitus without complication, without long-term current use of insulin (HCC) Dizziness Dizziness and giddiness Lightheadedness Dizziness and giddiness H/O total adrenalectomy (HCC) Personal history of surgery to other organs Fatigue, unspecified type [facility] Diagnosis HYPERTENSION NOS- Primary Unspecified essential hypertension History of colonic polyps Personal history of colonic polyps HYPERLIPIDEMIA NEC/NOS Other and unspecified hyperlipidemia Skin lesion Unspecified disorder of skin and subcutaneous tissue Impaired fasting glucose DM w/o complication type II- Primary Type II or unspecified type diabetes mellitus without mention of complication, not stated as uncontrolled HYPERLIPIDEMIA NEC/NOS Other and unspecified hyperlipidemia Vision disturbance Unspecified visual disturbance 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)- Primary 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) Type 2 diabetes mellitus without complication, without long-term current use of insulin (HCC) Paroxysmal atrial fibrillation (HCC) Atrial fibrillation Mixed hyperlipidemia Pre-operative examination- Primary Preoperative examination, unspecified Essential hypertension Unspecified essential hypertension Mixed hyperlipidemia Paroxysmal atrial fibrillation (HCC) Atrial fibrillation Dizziness Dizziness and giddiness Bilateral carotid artery stenosis Occlusion and stenosis of carotid artery without mention of cerebral infarction Chronic depression Depressive disorder, not elsewhere classified History of skin cancer Personal history of other malignant neoplasm of skin Type 2 diabetes mellitus without complication, without long-term current use of insulin (HCC) Essential hypertension Unspecified essential hypertension [facility] Diagnosis HYPERTENSION NOS- Primary Unspecified essential hypertension History of colonic polyps Personal history of colonic polyps HYPERLIPIDEMIA NEC/NOS Other and unspecified hyperlipidemia Skin lesion Unspecified disorder of skin and subcutaneous tissue Impaired fasting glucose DM w/o complication type II- Primary Type II or unspecified type diabetes mellitus without mention of complication, not stated as uncontrolled HYPERLIPIDEMIA NEC/NOS Other and unspecified hyperlipidemia Vision disturbance Unspecified visual disturbance 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)- Primary 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) Type 2 diabetes mellitus without complication, without long-term current use of insulin (HCC) Paroxysmal atrial fibrillation (HCC) Atrial fibrillation Mixed hyperlipidemia Pre-operative examination- Primary Preoperative examination, unspecified Essential hypertension Unspecified essential hypertension Mixed hyperlipidemia Paroxysmal atrial fibrillation (HCC) Atrial fibrillation Dizziness Dizziness and giddiness Bilateral carotid artery stenosis Occlusion and stenosis of carotid artery without mention of cerebral infarction Chronic depression Depressive disorder, not elsewhere classified History of skin cancer Personal history of other malignant neoplasm of skin Type 2 diabetes mellitus without complication, without long-term current use of insulin (HCC) Essential hypertension Unspecified essential hypertension [facility] Diagnosis HYPERTENSION NOS- Primary Unspecified essential hypertension History of colonic polyps Personal history of colonic polyps HYPERLIPIDEMIA NEC/NOS Other and unspecified hyperlipidemia Skin lesion Unspecified disorder of skin and subcutaneous tissue Impaired fasting glucose DM w/o complication type II- Primary Type II or unspecified type diabetes mellitus without mention of complication, not stated as uncontrolled HYPERLIPIDEMIA NEC/NOS Other and unspecified hyperlipidemia Vision disturbance Unspecified visual disturbance 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)- Primary 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) Type 2 diabetes mellitus without complication, without long-term current use of insulin (HCC) Paroxysmal atrial fibrillation (HCC) Atrial fibrillation Mixed hyperlipidemia Pre-operative examination- Primary Preoperative examination, unspecified Essential hypertension Unspecified essential hypertension Mixed hyperlipidemia Paroxysmal atrial fibrillation (HCC) Atrial fibrillation Dizziness Dizziness and giddiness Bilateral carotid artery stenosis Occlusion and stenosis of carotid artery without mention of cerebral infarction Chronic depression Depressive disorder, not elsewhere classified History of skin cancer Personal history of other malignant neoplasm of skin Type 2 diabetes mellitus without complication, without long-term current use of insulin (HCC) H/O total adrenalectomy (HCC)- Primary Personal history of surgery to other organs [facility] Diagnosis HYPERTENSION NOS- Primary Unspecified essential hypertension History of colonic polyps Personal history of colonic polyps HYPERLIPIDEMIA NEC/NOS Other and unspecified hyperlipidemia Skin lesion Unspecified disorder of skin and subcutaneous tissue Impaired fasting glucose DM w/o complication type II- Primary Type II or unspecified type diabetes mellitus without mention of complication, not stated as uncontrolled HYPERLIPIDEMIA NEC/NOS Other and unspecified hyperlipidemia Vision disturbance Unspecified visual disturbance 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)- Primary 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) Type 2 diabetes mellitus without complication, without long-term current use of insulin (HCC) Paroxysmal atrial fibrillation (HCC) Atrial fibrillation Mixed hyperlipidemia Pre-operative examination- Primary Preoperative examination, unspecified Essential hypertension Unspecified essential hypertension Mixed hyperlipidemia Paroxysmal atrial fibrillation (HCC) Atrial fibrillation Dizziness Dizziness and giddiness Bilateral carotid artery stenosis Occlusion and stenosis of carotid artery without mention of cerebral infarction Chronic depression Depressive disorder, not elsewhere classified History of skin cancer Personal history of other malignant neoplasm of skin Type 2 diabetes mellitus without complication, without long-term current use of insulin (HCC) H/O total adrenalectomy (HCC) Personal history of surgery to other organs [facility] Diagnosis HYPERTENSION NOS- Primary Unspecified essential hypertension History of colonic polyps Personal history of colonic polyps HYPERLIPIDEMIA NEC/NOS Other and unspecified hyperlipidemia Skin lesion Unspecified disorder of skin and subcutaneous tissue Impaired fasting glucose DM w/o complication type II- Primary Type II or unspecified type diabetes mellitus without mention of complication, not stated as uncontrolled HYPERLIPIDEMIA NEC/NOS Other and unspecified hyperlipidemia Vision disturbance Unspecified visual disturbance 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)- Primary 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) Type 2 diabetes mellitus without complication, without long-term current use of insulin (HCC) Paroxysmal atrial fibrillation (HCC) Atrial fibrillation Mixed hyperlipidemia Pre-operative examination- Primary Preoperative examination, unspecified Essential hypertension Unspecified essential hypertension Mixed hyperlipidemia Paroxysmal atrial fibrillation (HCC) Atrial fibrillation Dizziness Dizziness and giddiness Bilateral carotid artery stenosis Occlusion and stenosis of carotid artery without mention of cerebral infarction Chronic depression Depressive disorder, not elsewhere classified History of skin cancer Personal history of other malignant neoplasm of skin Type 2 diabetes mellitus without complication, without long-term current use of insulin (HCC) Fatigue, unspecified type- Primary Abnormal weight gain ACTH elevation Other corticoadrenal overactivity documented in this encounter [facility] note* Diagnosis Onset Date Resolution Status Admit Date Bilateral carotid artery stenosis chronic December 09, 2024 12:52pm Dyspnea chronic December 09 12:52pm Essential hypertension chronic Ju 2024 12:52pm Hyperlipidemia chronic December 09, 2024 12:52pm Persistent atrial fibrillation chron ic December 09, 2024 12:52pm [employer] Work Phone: Evaluation note* Diagnosis HYPERTENSION NOS- Primary Unspecified essential hypertension History of colonic polyps Personal history of colonic polyps HYPERLIPIDEMIA NEC/NOS Other and unspecified hyperlipidemia Skin lesion Unspecified disorder of skin and subcutaneous tissue Impaired fasting glucose DM w/o complication type II- Primary Type II or unspecified type diabetes mellitus without mention of complication, not stated as uncontrolled HYPERLIPIDEMIA NEC/NOS Other and unspecified hyperlipidemia Vision disturbance Unspecified visual disturbance 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)- Primary 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) Type 2 diabetes mellitus without complication, without long-term current use of insulin (HCC) Paroxysmal atrial fibrillation (HCC) Atrial fibrillation Mixed hyperlipidemia Pre-operative examination- Primary Preoperative examination, unspecified Essential hypertension Unspecified essential hypertension Mixed hyperlipidemia Paroxysmal atrial fibrillation (HCC) Atrial fibrillation Dizziness Dizziness and giddiness Bilateral carotid artery stenosis Occlusion and stenosis of carotid artery without mention of cerebral infarction Chronic depression Depressive disorder, not elsewhere classified History of skin cancer Personal history of other malignant neoplasm of skin Type 2 diabetes mellitus without complication, without long-term current use of insulin (HCC) Essential hypertension- Primary Unspecified essential hypertension Paroxysmal atrial fibrillation (HCC) Atrial fibrillation Ocular migraine Other forms of migraine, without mention of intractable migraine without mention of status migrainosus Type 2 diabetes mellitus without complication, without long-term current use of insulin (HCC) Left adrenal mass (HCC) Unspecified disorder of adrenal glands Degeneration of intervertebral disc of lumbar region, unspecified whether pain present Chronic depression Depressive disorder, not elsewhere classified Anxiety state Anxiety state, unspecified Bilateral carotid artery stenosis Occlusion and stenosis of carotid artery without mention of cerebral infarction Disorder of bone Disorder of bone and cartilage, unspecified Depression, major, single episode, moderate (HCC) Major depressive disorder, single episode, moderate Congestive heart failure, unspecified HF chronicity, unspecified heart failure type (HCC) [facility] HYPERTENSION NOS- Primary Unspecified essential hypertension History of colonic polyps Personal history of colonic polyps HYPERLIPIDEMIA NEC/NOS Other and unspecified hyperlipidemia Skin lesion Unspecified disorder of skin and subcutaneous tissue Impaired fasting glucose DM w/o complication type II- Primary Type II or unspecified type diabetes mellitus without mention of complication, not stated as uncontrolled HYPERLIPIDEMIA NEC/NOS Other and unspecified hyperlipidemia Vision disturbance Unspecified visual disturbance 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)- Primary 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) Type 2 diabetes mellitus without complication, without long-term current use of insulin (HCC) Paroxysmal atrial fibrillation (HCC) Atrial fibrillation Mixed hyperlipidemia Pre-operative examination- Primary Preoperative examination, unspecified Essential hypertension Unspecified essential hypertension Mixed hyperlipidemia Paroxysmal atrial fibrillation (HCC) Atrial fibrillation Dizziness Dizziness and giddiness Bilateral carotid artery stenosis Occlusion and stenosis of carotid artery without mention of cerebral infarction Chronic depression Depressive disorder, not elsewhere classified History of skin cancer Personal history of other malignant neoplasm of skin Type 2 diabetes mellitus without complication, without long-term current use of insulin (HCC) Pain of toe of left foot- Primary Pain in limb documented in this encounter [facility] for referral (narrative)* Diagnostic Procedure Only (Urgent) - Closed Specialty Diagnoses / Procedures Referred By Contac t Referred To Contact XR IMAGING Diagnoses Wrist pain, acute, right Procedures XR WRIST INJURY 4V PA/LAT/OBL/SCAPH RT X-RAY WRIST COMPLET MIN 3 VIEWS Meir Orellana APRN.CNP [address] [place] [address] [place] [address] Referral ID Status Reason Start Date Expiration Date V isits Requested Visits Authorized [id number] Closed Auto-Generate d Referral 04/19/2021 05/19/2022 1 1 [facility] for referral (narrative)No reason for referral information [facility] N[facility]* Diagnostic Procedure Only (Urgent) - Closed Specialty Diagnoses / Procedures Referred By Contac t Referred To Contact XR IMAGING Diagnoses Wrist pain, acute, right Procedures XR WRIST INJURY 4V PA/LAT/OBL/SCAPH RT X-RAY WRIST COMPLET MIN 3 VIEWS Meir Orellana APRN.CNP [address] [place] [address] [place] [address] Referral ID Status Reason Start Date Expiration Date V isits Requested Visits Authorized [id number] Closed Auto-Generate d Referral 04/19/2021 05/19/2022 1 1 [facility] MRI/CT (Routine) - Closed Specialty Diagnoses / Procedures Referred By Contac t Referred To Contact CT IMAGING Diagnoses H/O total adrenalectomy (HCC) Procedures CT ABD/PEL W IVCON CT ABD & PELVIS W/CONTRAST Obie Marcelo MD [address] [place] [address] Phone: tel: fax: CT IMAGING [facility] Referral ID Status Reason Start Date Expiration Date V isits Requested Visits Authorized [id number] Closed Auto-Generate d Referral 08/26/2024 09/25/2025 1 1 [facility] Reason for Referral Specialty Diagnoses / Procedures Referred By Contac t Referred To Contact Cardiology Diagnoses SOB (shortness of breath) Procedures CONSULT TO CARDIOLOGY Enrrique Carmona MD [address] [place] [address] Referral ID Status Reason Start Date Expiration Date Visits Requested Visits Authorized [id number] Ref Not Required PCP Requested Referral 09/24/2021 09/24/2022 1 1 Specialty Diagnoses / Procedures Referred By Contac t Referred [facility] Diagnoses Paroxysmal atrial fibrillation (HCC) SOB (shortness of breath) Procedures ECG COMPLETE ECG ROUTINE ECG W/LEAST 12 LDS W/I&[place] [address] [place] [address] [place] [address] [facility] [address] [place] [address] Referral ID Status Reason Start Date Expiration Date V isits Requested Visits Authorized [id number] Closed Auto-Generate d Referral 09/24/2021 09/24/2022 1 1 Specialty Diagnoses / Procedures Referred By Contac t Referred To Contact CT IMAGING Diagnoses Weight loss Left upper quadrant abdominal mass Intra-abdominal and pelvic swelling, mass and lump, unspecified site Procedures CT ABD/PEL W IVCON CT ABD & PELVIS W/CONTRAST Enrrique Carmona MD [address] [place] [address] [facility] [place] [address] Referral ID Status Reason Start Date Expiration Date Visits Requested Visits Authorized [id number] Pending Review Auto-Generat ed Referral 01/05/2024 02/03/2025 1 1 Referral ID Status Reason Start Date Expiration Date V isits Requested Visits Authorized [id number] Closed Auto-Generate d Referral 06/23/2023 06/22/2024 2 2 Specialty Diagnoses / Procedures Referred By Contac t Referred To Contact Diagnoses Weight loss 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) Procedures CONSULT TO ENDOCRINE SURGERY OFFICE/[facility] 60 MINUTES Enrrique Carmona MD [address] [place] [address] Referral ID Status Reason Start Date Expiration Date Visits Requested Visits Authorized [id number] Pending Review PCP Requested Referral 01/09/2024 01/08/2025 1 1 Specialty Diagnoses / Procedures Referred By Contact Referred To Contact General Surgery / ENDOCRINOLOGY SURGERY Diagnoses Rectal bleeding Weight loss Left upper quadrant abdominal mass Procedures CONSULT TO GENERAL SURGERY OFFICE/[facility] 60 MINUTES Enrrique Carmona MD [address] [place] [address] Endo Surg [facility] [address] [place] [address] Referral ID Status Reason Start Date Expiration Date Visits Re quested Visits Authorized [id number] Closed 01/13/2024 06/22/2024 1 1 Specialty Diagnoses / Procedures Referred By Contac t Referred To Contact Diagnoses Adrenal mass greater than 4 cm in diameter (HCC) Procedures REFER TO [facility] - PREOPERATIVE OPTIMIZATION OFFICE/[facility]IENT [facility] 60 MINUTES Marcel Roberts MD [address] [place] [address] Referral ID Status Reason Start Date Expiration Date Visits Requested Visits Authorized [id number] Pending Review PCP Requested Referral 02/19/2024 02/18/2025 1 1 Specialty Diagnoses / Procedures Referred By Contac t Referred To Contact Diagnoses Major depressive disorder with current active episode, unspecified depression episode severity, unspecified whether recurrent Procedures CONSULT TO GERIATRICS OFFICE/[facility]IENT [facility] 60 MINUTES SuppVianney hernandez, OPTICAL MECHANIC APPRENTICE.CANDLES POURER [address] [place] [address] Referral ID Status Reason Start Date Expiration Date V isits Requested Visits Authorized [id number] Pending Review 03/29/2024 06/27/2024 1 1 Specialty Diagnoses / Procedures Referred By Contac t Referred To Contact Diagnoses Major depressive disorder with current active episode, unspecified depression episode severity, unspecified whether recurrent Procedures CONSULT TO [facility] ADULT OFFICE/OUTPATIENT NEW HIGH MDM 60 MINUTES SuppVianney hernandez, OPTICAL MECHANIC APPRENTICE.CANDLES POURER [address] [place] [address] Referral ID Status Reason Start Date Expiration Date Visits Requested Visits Authorized [id number] Pending Review PCP Requested Referral 03/15/2024 06/13/2024 1 1 Specialty Diagnoses / Procedures Referred By Contac t Referred To Contact MR IMAGING Diagnoses Cognitive impairment, mild, so stated Procedures MRI 3D POST PROCESSING 3D RENDERING W/INTERP&POSTPROC DIFF WORK STATION Isabel Celis MD [address] [place] [address] [place] [address] Referral ID Status Reason Start Date Expiration Date Visits Requested Visits Authorized [id number] New Request Auto-Generat ed Referral 05/07/2025 1 1 Specialty Diagnoses / Procedures Referred By Contac t Referred To Contact MR IMAGING Diagnoses Cognitive impairment, mild, so stated Procedures MRI BRAIN W QUANT WO IVCON MRI BRAIN BRAIN STEM W/O CONTRAST MATERIAL Isabel Celis MD [address] [place] [address] [place] [address] Referral ID Status Reason Start Date Expiration Date Visits Requested Visits Authorized [id number] Authorized Auto-Generat ed Referral 4 05/07/2025 1 1 Referral ID Status Reason Start Date Expiration Date Visits Requested Visits Authorized [id number] New Request Auto-Generat ed Referral 4 05/07/2025 1 1 Referral ID Status Reason Start Date Expiration Date Visits Requested Visits Authorized [id number] New Request Auto-Generat ed Referral 4 05/07/2025 1 1 Specialty Diagnoses / Procedures Referred By Contac t Referred To Contact Endocrinology Diagnoses Dizziness Lightheadedness H/O total adrenalectomy (HCC) Fatigue, unspecified type Procedures CONSULT TO ENDOCRINOLOGY OFFICE/OUTPATIENT NEW HIGH MDM 60 MINUTES Enrrique Carmona MD [address] [place] [address] Referral ID Status Reason Start Date Expiration Date Visits Requested Visits Authorized [id number] Pending Review PCP Requested Referral 4 05/21/2025 1 1 Advance Directives Documents on File Type Date Recorded Patient Social Media Intern Expl anation Advance Directive(s) 05/31/2019 7:51 AM Documents on File Type Date Recorded Patient Social Media Intern Expl anation Advance Directive(s) 05/31/2019 7:51 AM Advance Directive Response Recorded Date/ Time Name of Medical Power of Domain Architect CAREN MACARIO March 31, 2022 7:06pm Living Will Yes March 31 7:06pm Power of Domain Architect Yes March 31 7:06pm Advance Directive Response Recorded Date/ Time Living Will Yes April 23 11:40pm Power of Domain Architect Yes April 23, 2023 11:40pm Name of Medical Power of Domain Architect daughter April 23, 2023 11:40pm Date Activated Date Inactivated Comments 02/14/2024 2:45 AM 02/14/2024 7:53 PM Question Answer Comments Full Code Order Discussed With: Patient Date Activated Date Inactivated Comments 02/14/2024 2:45 AM 02/14/2024 7:53 PM Question Answer Comments Full Code Order Discussed With: Patient Chief Complaint and Reason for Visit Chief Complaint Admit Date 6 M FU December 09, 2024 12:5 2pm CAD December 21, 2024 10:52 am Reason for Visit Admit Date Bilateral carotid artery stenosis November 212024 12:52pm Dyspnea December 09, 2024 12:5 2pm Essential hypertension December 09, 2024 1 2:52pm Hyperlipidemia December 09, 2024 12:5 2pm Persistent atrial fibrillation November 12:52pm Chief Complaint SOB, DIZZINESS, WEAK NESS 9 M FU FAZAL Reason for Visit Bilateral carotid ar sean stenosis Hyperlipidemia Persistent atrial fibrillation Chief Complaint LIGHT HEADED Chief Complaint Admit Date 6 M FU December 09, 2024 12:5 2pm Family History Relationship Condition Age at Onset Recorded Date/T adelso daughter Atrial tachycardia Unknown brother Coronary artery disease Unknown Summary Purpose Additional Source Comments Source Comments (unrecognize d section and content) In the event this informatio n is protected by the Federal Confidentiality of Alcohol and Drug Abuse Patient Records regulations: The Federal rules restrict any use of the information to criminally investigate or prosecute any alcohol or drug abuse patient.[facility] the event this information is protected by the Federal Confidentiality of Alcohol and Drug Abuse Patient Records regulations: The Federal rules restrict any use of the information to criminally investigate or prosecute any alcohol or drug abuse patient.[facility] the event this information is protected by the Federal Confidentiality of Alcohol and Drug Abuse Patient Records regulations: The Federal rules restrict any use of the information to criminally investigate or prosecute any alcohol or drug abuse patient.[facility] the event this information is protected by the Federal Confidentiality of Alcohol and Drug Abuse Patient Records regulations: The Federal rules restrict any use of the information to criminally investigate or prosecute any alcohol or drug abuse patient.[facility] the event this information is protected by the Federal Confidentiality of Alcohol and Drug Abuse Patient Records regulations: The Federal rules restrict any use of the information to criminally investigate or prosecute any alcohol or drug abuse patient.[facility] the event this information is protected by the Federal Confidentiality of Alcohol and Drug Abuse Patient Records regulations: The Federal rules restrict any use of the information to criminally investigate or prosecute any alcohol or drug abuse patient.[facility] the event this information is protected by the Federal Confidentiality of Alcohol and Drug Abuse Patient Records regulations: The Federal rules restrict any use of the information to criminally investigate or prosecute any alcohol or drug abuse patient.[facility] the event this information is protected by the Federal Confidentiality of Alcohol and Drug Abuse Patient Records regulations: The Federal rules restrict any use of the information to criminally investigate or prosecute any alcohol or drug abuse patient.[facility] the event this information is protected by the Federal Confidentiality of Alcohol and Drug Abuse Patient Records regulations: The Federal rules restrict any use of the information to criminally investigate or prosecute any alcohol or drug abuse patient.[facility] the event this information is protected by the Federal Confidentiality of Alcohol and Drug Abuse Patient Records regulations: The Federal rules restrict any use of the information to criminally investigate or prosecute any alcohol or drug abuse patient.[facility] the event this information is protected by the Federal Confidentiality of Alcohol and Drug Abuse Patient Records regulations: The Federal rules restrict any use of the information to criminally investigate or prosecute any alcohol or drug abuse patient.[facility] the event this information is protected by the Federal Confidentiality of Alcohol and Drug Abuse Patient Records regulations: The Federal rules restrict any use of the information to criminally investigate or prosecute any alcohol or drug abuse patient.[facility] the event this information is protected by the Federal Confidentiality of Alcohol and Drug Abuse Patient Records regulations: The Federal rules restrict any use of the information to criminally investigate or prosecute any alcohol or drug abuse patient.[facility] the event this information is protected by the Federal Confidentiality of Alcohol and Drug Abuse Patient Records regulations: The Federal rules restrict any use of the information to criminally investigate or prosecute any alcohol or drug abuse patient.[facility] the event this information is protected by the Federal Confidentiality of Alcohol and Drug Abuse Patient Records regulations: The Federal rules restrict any use of the information to criminally investigate or prosecute any alcohol or drug abuse patient.[facility] the event this information is protected by the Federal Confidentiality of Alcohol and Drug Abuse Patient Records regulations: The Federal rules restrict any use of the information to criminally investigate or prosecute any alcohol or drug abuse patient.[facility]In the event this information is protected by the Federal Confidentiality of Alcohol and Drug Abuse Patient Records regulations: The Federal rules restrict any use of the information to criminally investigate or prosecute any alcohol or drug abuse patient.[facility]In the event this information is protected by the Federal Confidentiality of Alcohol and Drug Abuse Patient Records regulations: The Federal rules restrict any use of the information to criminally investigate or prosecute any alcohol or drug abuse patient.[facility]In the event this information is protected by the Federal Confidentiality of Alcohol and Drug Abuse Patient Records regulations: The Federal rules restrict any use of the information to criminally investigate or prosecute any alcohol or drug abuse patient.[facility]In the event this information is protected by the Federal Confidentiality of Alcohol and Drug Abuse Patient Records regulations: The Federal rules restrict any use of the information to criminally investigate or prosecute any alcohol or drug abuse patient.[facility]In the event this information is protected by the Federal Confidentiality of Alcohol and Drug Abuse Patient Records regulations: The Federal rules restrict any use of the information to criminally investigate or prosecute any alcohol or drug abuse patient.[facility] HospitalIn the event this information is protected by the Federal Confidentiality of Alcohol and Drug Abuse Patient Records regulations: The Federal rules restrict any use of the information to criminally investigate or prosecute any alcohol or drug abuse patient.[facility]In the event this information is protected by the Federal Confidentiality of Alcohol and Drug Abuse Patient Records regulations: The Federal rules restrict any use of the information to criminally investigate or prosecute any alcohol or drug abuse patient.[facility]In the event this information is protected by the Federal Confidentiality of Alcohol and Drug Abuse Patient Records regulations: The Federal rules restrict any use of the information to criminally investigate or prosecute any alcohol or drug abuse patient.[facility]In the event this information is protected by the Federal Confidentiality of Alcohol and Drug Abuse Patient Records regulations: The Federal rules restrict any use of the information to criminally investigate or prosecute any alcohol or drug abuse patient.[facility] the event this information is protected by the Federal Confidentiality of Alcohol and Drug Abuse Patient Records regulations: The Federal rules restrict any use of the information to criminally investigate or prosecute any alcohol or drug abuse patient.[facility] HospitalIn the event this information is protected by the Federal Confidentiality of Alcohol and Drug Abuse Patient Records regulations: The Federal rules restrict any use of the information to criminally investigate or prosecute any alcohol or drug abuse patient.[facility] HospitalIn the event this information is protected by the Federal Confidentiality of Alcohol and Drug Abuse Patient Records regulations: The Federal rules restrict any use of the information to criminally investigate or prosecute any alcohol or drug abuse patient.[facility]In the event this information is protected by the Federal Confidentiality of Alcohol and Drug Abuse Patient Records regulations: The Federal rules restrict any use of the information to criminally investigate or prosecute any alcohol or drug abuse patient.[facility]In the event this information is protected by the Federal Confidentiality of Alcohol and Drug Abuse Patient Records regulations: The Federal rules restrict any use of the information to criminally investigate or prosecute any alcohol or drug abuse patient.[facility] HospitalIn the event this information is protected by the Federal Confidentiality of Alcohol and Drug Abuse Patient Records regulations: The Federal rules restrict any use of the information to criminally investigate or prosecute any alcohol or drug abuse patient.[facility]In the event this information is protected by the Federal Confidentiality of Alcohol and Drug Abuse Patient Records regulations: The Federal rules restrict any use of the information to criminally investigate or prosecute any alcohol or drug abuse patient.[facility] HospitalIn the event this information is protected by the Federal Confidentiality of Alcohol and Drug Abuse Patient Records regulations: The Federal rules restrict any use of the information to criminally investigate or prosecute any alcohol or drug abuse patient.[facility] HospitalIn the event this information is protected by the Federal Confidentiality of Alcohol and Drug Abuse Patient Records regulations: The Federal rules restrict any use of the information to criminally investigate or prosecute any alcohol or drug abuse patient.[facility] HospitalIn the event this information is protected by the Federal Confidentiality of Alcohol and Drug Abuse Patient Records regulations: The Federal rules restrict any use of the information to criminally investigate or prosecute any alcohol or drug abuse patient.[facility] HospitalIn the event this information is protected by the Federal Confidentiality of Alcohol and Drug Abuse Patient Records regulations: The Federal rules restrict any use of the information to criminally investigate or prosecute any alcohol or drug abuse patient.[facility] HospitalIn the event this information is protected by the Federal Confidentiality of Alcohol and Drug Abuse Patient Records regulations: The Federal rules restrict any use of the information to criminally investigate or prosecute any alcohol or drug abuse patient.[facility] HospitalIn the event this information is protected by the Federal Confidentiality of Alcohol and Drug Abuse Patient Records regulations: The Federal rules restrict any use of the information to criminally investigate or prosecute any alcohol or drug abuse patient.[facility] HospitalIn the event this information is protected by the Federal Confidentiality of Alcohol and Drug Abuse Patient Records regulations: The Federal rules restrict any use of the information to criminally investigate or prosecute any alcohol or drug abuse patient.[facility] HospitalIn the event this information is protected by the Federal Confidentiality of Alcohol and Drug Abuse Patient Records regulations: The Federal rules restrict any use of the information to criminally investigate or prosecute any alcohol or drug abuse patient.[facility] HospitalIn the event this information is protected by the Federal Confidentiality of Alcohol and Drug Abuse Patient Records regulations: The Federal rules restrict any use of the information to criminally investigate or prosecute any alcohol or drug abuse patient.[facility] HospitalIn the event this information is protected by the Federal Confidentiality of Alcohol and Drug Abuse Patient Records regulations: The Federal rules restrict any use of the information to criminally investigate or prosecute any alcohol or drug abuse patient.[facility] HospitalIn the event this information is protected by the Federal Confidentiality of Alcohol and Drug Abuse Patient Records regulations: The Federal rules restrict any use of the information to criminally investigate or prosecute any alcohol or drug abuse patient.[facility] HospitalIn the event this information is protected by the Federal Confidentiality of Alcohol and Drug Abuse Patient Records regulations: The Federal rules restrict any use of the information to criminally investigate or prosecute any alcohol or drug abuse patient.[facility] HospitalIn the event this information is protected by the Federal Confidentiality of Alcohol and Drug Abuse Patient Records regulations: The Federal rules restrict any use of the information to criminally investigate or prosecute any alcohol or drug abuse patient.[facility] HospitalIn the event this information is protected by the Federal Confidentiality of Alcohol and Drug Abuse Patient Records regulations: The Federal rules restrict any use of the information to criminally investigate or prosecute any alcohol or drug abuse patient.[facility] HospitalIn the event this information is protected by the Federal Confidentiality of Alcohol and Drug Abuse Patient Records regulations: The Federal rules restrict any use of the information to criminally investigate or prosecute any alcohol or drug abuse patient.[facility] HospitalIn the event this information is protected by the Federal Confidentiality of Alcohol and Drug Abuse Patient Records regulations: The Federal rules restrict any use of the information to criminally investigate or prosecute any alcohol or drug abuse patient.[facility] HospitalIn the event this information is protected by the Federal Confidentiality of Alcohol and Drug Abuse Patient Records regulations: The Federal rules restrict any use of the information to criminally investigate or prosecute any alcohol or drug abuse patient.[facility] HospitalIn the event this information is protected by the Federal Confidentiality of Alcohol and Drug Abuse Patient Records regulations: The Federal rules restrict any use of the information to criminally investigate or prosecute any alcohol or drug abuse patient.[facility] HospitalIn the event this information is protected by the Federal Confidentiality of Alcohol and Drug Abuse Patient Records regulations: The Federal rules restrict any use of the information to criminally investigate or prosecute any alcohol or drug abuse patient.[facility] HospitalIn the event this information is protected by the Federal Confidentiality of Alcohol and Drug Abuse Patient Records regulations: The Federal rules restrict any use of the information to criminally investigate or prosecute any alcohol or drug abuse patient.[facility] HospitalIn the event this information is protected by the Federal Confidentiality of Alcohol and Drug Abuse Patient Records regulations: The Federal rules restrict any use of the information to criminally investigate or prosecute any alcohol or drug abuse patient.[facility] HospitalIn the event this information is protected by the Federal Confidentiality of Alcohol and Drug Abuse Patient Records regulations: The Federal rules restrict any use of the information to criminally investigate or prosecute any alcohol or drug abuse patient.[facility] HospitalIn the event this information is protected by the Federal Confidentiality of Alcohol and Drug Abuse Patient Records regulations: The Federal rules restrict any use of the information to criminally investigate or prosecute any alcohol or drug abuse patient.[facility] HospitalIn the event this information is protected by the Federal Confidentiality of Alcohol and Drug Abuse Patient Records regulations: The Federal rules restrict any use of the information to criminally investigate or prosecute any alcohol or drug abuse patient.[facility] HospitalIn the event this information is protected by the Federal Confidentiality of Alcohol and Drug Abuse Patient Records regulations: The Federal rules restrict any use of the information to criminally investigate or prosecute any alcohol or drug abuse patient.[facility] HospitalIn the event this information is protected by the Federal Confidentiality of Alcohol and Drug Abuse Patient Records regulations: The Federal rules restrict any use of the information to criminally investigate or prosecute any alcohol or drug abuse patient.[facility] HospitalIn the event this information is protected by the Federal Confidentiality of Alcohol and Drug Abuse Patient Records regulations: The Federal rules restrict any use of the information to criminally investigate or prosecute any alcohol or drug abuse patient.[facility] HospitalIn the event this information is protected by the Federal Confidentiality of Alcohol and Drug Abuse Patient Records regulations: The Federal rules restrict any use of the information to criminally investigate or prosecute any alcohol or drug abuse patient.[facility] HospitalIn the event this information is protected by the Federal Confidentiality of Alcohol and Drug Abuse Patient Records regulations: The Federal rules restrict any use of the information to criminally investigate or prosecute any alcohol or drug abuse patient.[facility] HospitalIn the event this information is protected by the Federal Confidentiality of Alcohol and Drug Abuse Patient Records regulations: The Federal rules restrict any use of the information to criminally investigate or prosecute any alcohol or drug abuse patient.[facility] HospitalIn the event this information is protected by the Federal Confidentiality of Alcohol and Drug Abuse Patient Records regulations: The Federal rules restrict any use of the information to criminally investigate or prosecute any alcohol or drug abuse patient.[facility] HospitalIn the event this information is protected by the Federal Confidentiality of Alcohol and Drug Abuse Patient Records regulations: The Federal rules restrict any use of the information to criminally investigate or prosecute any alcohol or drug abuse patient.[facility] HospitalIn the event this information is protected by the Federal Confidentiality of Alcohol and Drug Abuse Patient Records regulations: The Federal rules restrict any use of the information to criminally investigate or prosecute any alcohol or drug abuse patient.[facility] HospitalIn the event this information is protected by the Federal Confidentiality of Alcohol and Drug Abuse Patient Records regulations: The Federal rules restrict any use of the information to criminally investigate or prosecute any alcohol or drug abuse patient.[facility] HospitalIn the event this information is protected by the Federal Confidentiality of Alcohol and Drug Abuse Patient Records regulations: The Federal rules restrict any use of the information to criminally investigate or prosecute any alcohol or drug abuse patient.[facility] HospitalIn the event this information is protected by the Federal Confidentiality of Alcohol and Drug Abuse Patient Records regulations: The Federal rules restrict any use of the information to criminally investigate or prosecute any alcohol or drug abuse patient.[facility] HospitalIn the event this information is protected by the Federal Confidentiality of Alcohol and Drug Abuse Patient Records regulations: The Federal rules restrict any use of the information to criminally investigate or prosecute any alcohol or drug abuse patient.[facility] HospitalIn the event this information is protected by the Federal Confidentiality of Alcohol and Drug Abuse Patient Records regulations: The Federal rules restrict any use of the information to criminally investigate or prosecute any alcohol or drug abuse patient.[facility] HospitalIn the event this information is protected by the Federal Confidentiality of Alcohol and Drug Abuse Patient Records regulations: The Federal rules restrict any use of the information to criminally investigate or prosecute any alcohol or drug abuse patient.[facility] HospitalIn the event this information is protected by the Federal Confidentiality of Alcohol and Drug Abuse Patient Records regulations: The Federal rules restrict any use of the information to criminally investigate or prosecute any alcohol or drug abuse patient.[facility] HospitalIn the event this information is protected by the Federal Confidentiality of Alcohol and Drug Abuse Patient Records regulations: The Federal rules restrict any use of the information to criminally investigate or prosecute any alcohol or drug abuse patient.[facility] HospitalIn the event this information is protected by the Federal Confidentiality of Alcohol and Drug Abuse Patient Records regulations: The Federal rules restrict any use of the information to criminally investigate or prosecute any alcohol or drug abuse patient.[facility] HospitalIn the event this information is protected by the Federal Confidentiality of Alcohol and Drug Abuse Patient Records regulations: The Federal rules restrict any use of the information to criminally investigate or prosecute any alcohol or drug abuse patient.[facility] HospitalIn the event this information is protected by the Federal Confidentiality of Alcohol and Drug Abuse Patient Records regulations: The Federal rules restrict any use of the information to criminally investigate or prosecute any alcohol or drug abuse patient.[facility] HospitalIn the event this information is protected by the Federal Confidentiality of Alcohol and Drug Abuse Patient Records regulations: The Federal rules restrict any use of the information to criminally investigate or prosecute any alcohol or drug abuse patient.[facility] HospitalIn the event this information is protected by the Federal Confidentiality of Alcohol and Drug Abuse Patient Records regulations: The Federal rules restrict any use of the information to criminally investigate or prosecute any alcohol or drug abuse patient.[facility] HospitalIn the event this information is protected by the Federal Confidentiality of Alcohol and Drug Abuse Patient Records regulations: The Federal rules restrict any use of the information to criminally investigate or prosecute any alcohol or drug abuse patient.[facility] HospitalIn the event this information is protected by the Federal Confidentiality of Alcohol and Drug Abuse Patient Records regulations: The Federal rules restrict any use of the information to criminally investigate or prosecute any alcohol or drug abuse patient.[facility] HospitalIn the event this information is protected by the Federal Confidentiality of Alcohol and Drug Abuse Patient Records regulations: The Federal rules restrict any use of the information to criminally investigate or prosecute any alcohol or drug abuse patient.[facility] HospitalIn the event this information is protected by the Federal Confidentiality of Alcohol and Drug Abuse Patient Records regulations: The Federal rules restrict any use of the information to criminally investigate or prosecute any alcohol or drug abuse patient.[facility] HospitalIn the event this information is protected by the Federal Confidentiality of Alcohol and Drug Abuse Patient Records regulations: The Federal rules restrict any use of the information to criminally investigate or prosecute any alcohol or drug abuse patient.[facility] HospitalIn the event this information is protected by the Federal Confidentiality of Alcohol and Drug Abuse Patient Records regulations: The Federal rules restrict any use of the information to criminally investigate or prosecute any alcohol or drug abuse patient.[facility] HospitalIn the event this information is protected by the Federal Confidentiality of Alcohol and Drug Abuse Patient Records regulations: The Federal rules restrict any use of the information to criminally investigate or prosecute any alcohol or drug abuse patient.[facility] HospitalIn the event this information is protected by the Federal Confidentiality of Alcohol and Drug Abuse Patient Records regulations: The Federal rules restrict any use of the information to criminally investigate or prosecute any alcohol or drug abuse patient.[facility] HospitalIn the event this information is protected by the Federal Confidentiality of Alcohol and Drug Abuse Patient Records regulations: The Federal rules restrict any use of the information to criminally investigate or prosecute any alcohol or drug abuse patient.[facility] HospitalIn the event this information is protected by the Federal Confidentiality of Alcohol and Drug Abuse Patient Records regulations: The Federal rules restrict any use of the information to criminally investigate or prosecute any alcohol or drug abuse patient.[facility] HospitalIn the event this information is protected by the Federal Confidentiality of Alcohol and Drug Abuse Patient Records regulations: The Federal rules restrict any use of the information to criminally investigate or prosecute any alcohol or drug abuse patient.[facility] HospitalIn the event this information is protected by the Federal Confidentiality of Alcohol and Drug Abuse Patient Records regulations: The Federal rules restrict any use of the information to criminally investigate or prosecute any alcohol or drug abuse patient.[facility] HospitalIn the event this information is protected by the Federal Confidentiality of Alcohol and Drug Abuse Patient Records regulations: The Federal rules restrict any use of the information to criminally investigate or prosecute any alcohol or drug abuse patient.[facility] HospitalIn the event this information is protected by the Federal Confidentiality of Alcohol and Drug Abuse Patient Records regulations: The Federal rules restrict any use of the information to criminally investigate or prosecute any alcohol or drug abuse patient.[facility] HospitalIn the event this information is protected by the Federal Confidentiality of Alcohol and Drug Abuse Patient Records regulations: The Federal rules restrict any use of the information to criminally investigate or prosecute any alcohol or drug abuse patient.[facility] HospitalIn the event this information is protected by the Federal Confidentiality of Alcohol and Drug Abuse Patient Records regulations: The Federal rules restrict any use of the information to criminally investigate or prosecute any alcohol or drug abuse patient.[facility] HospitalIn the event this information is protected by the Federal Confidentiality of Alcohol and Drug Abuse Patient Records regulations: The Federal rules restrict any use of the information to criminally investigate or prosecute any alcohol or drug abuse patient.[facility] HospitalIn the event this information is protected by the Federal Confidentiality of Alcohol and Drug Abuse Patient Records regulations: The Federal rules restrict any use of the information to criminally investigate or prosecute any alcohol or drug abuse patient.[facility] HospitalIn the event this information is protected by the Federal Confidentiality of Alcohol and Drug Abuse Patient Records regulations: The Federal rules restrict any use of the information to criminally investigate or prosecute any alcohol or drug abuse patient.[facility] HospitalIn the event this information is protected by the Federal Confidentiality of Alcohol and Drug Abuse Patient Records regulations: The Federal rules restrict any use of the information to criminally investigate or prosecute any alcohol or drug abuse patient.[facility] HospitalIn the event this information is protected by the Federal Confidentiality of Alcohol and Drug Abuse Patient Records regulations: The Federal rules restrict any use of the information to criminally investigate or prosecute any alcohol or drug abuse patient.[facility] HospitalIn the event this information is protected by the Federal Confidentiality of Alcohol and Drug Abuse Patient Records regulations: The Federal rules restrict any use of the information to criminally investigate or prosecute any alcohol or drug abuse patient.[facility] HospitalIn the event this information is protected by the Federal Confidentiality of Alcohol and Drug Abuse Patient Records regulations: The Federal rules restrict any use of the information to criminally investigate or prosecute any alcohol or drug abuse patient.[facility] HospitalIn the event this information is protected by the Federal Confidentiality of Alcohol and Drug Abuse Patient Records regulations: The Federal rules restrict any use of the information to criminally investigate or prosecute any alcohol or drug abuse patient.[facility] HospitalIn the event this information is protected by the Federal Confidentiality of Alcohol and Drug Abuse Patient Records regulations: The Federal rules restrict any use of the information to criminally investigate or prosecute any alcohol or drug abuse patient.[facility] HospitalIn the event this information is protected by the Federal Confidentiality of Alcohol and Drug Abuse Patient Records regulations: The Federal rules restrict any use of the information to criminally investigate or prosecute any alcohol or drug abuse patient.[facility] HospitalIn the event this information is protected by the Federal Confidentiality of Alcohol and Drug Abuse Patient Records regulations: The Federal rules restrict any use of the information to criminally investigate or prosecute any alcohol or drug abuse patient.[facility] HospitalIn the event this information is protected by the Federal Confidentiality of Alcohol and Drug Abuse Patient Records regulations: The Federal rules restrict any use of the information to criminally investigate or prosecute any alcohol or drug abuse patient.[facility] HospitalIn the event this information is protected by the Federal Confidentiality of Alcohol and Drug Abuse Patient Records regulations: The Federal rules restrict any use of the information to criminally investigate or prosecute any alcohol or drug abuse patient.[facility] HospitalIn the event this information is protected by the Federal Confidentiality of Alcohol and Drug Abuse Patient Records regulations: The Federal rules restrict any use of the information to criminally investigate or prosecute any alcohol or drug abuse patient.[facility] HospitalIn the event this information is protected by the Federal Confidentiality of Alcohol and Drug Abuse Patient Records regulations: The Federal rules restrict any use of the information to criminally investigate or prosecute any alcohol or drug abuse patient.[facility] HospitalIn the event this information is protected by the Federal Confidentiality of Alcohol and Drug Abuse Patient Records regulations: The Federal rules restrict any use of the information to criminally investigate or prosecute any alcohol or drug abuse patient.[facility] HospitalIn the event this information is protected by the Federal Confidentiality of Alcohol and Drug Abuse Patient Records regulations: The Federal rules restrict any use of the information to criminally investigate or prosecute any alcohol or drug abuse patient.[facility] HospitalIn the event this information is protected by the Federal Confidentiality of Alcohol and Drug Abuse Patient Records regulations: The Federal rules restrict any use of the information to criminally investigate or prosecute any alcohol or drug abuse patient.[facility] HospitalIn the event this information is protected by the Federal Confidentiality of Alcohol and Drug Abuse Patient Records regulations: The Federal rules restrict any use of the information to criminally investigate or prosecute any alcohol or drug abuse patient.[facility] HospitalIn the event this information is protected by the Federal Confidentiality of Alcohol and Drug Abuse Patient Records regulations: The Federal rules restrict any use of the information to criminally investigate or prosecute any alcohol or drug abuse patient.[facility] Reason for Visit (unrecogniz ed section and content) Reason Comments 6 Month Exam Reason Comments Results Reason Onset Date Comments Refill Request 12/20/2021 Reason Onset Date Comments Allied Health Visit 12/11/2021 Medication A dherence Outreach Reason Onset Date Comments Refill Request 03/02/2022 Reason Comments Ear Problem rubber of hearing ai d in left ear x 1 hour Reason Onset Date Comments Refill Request 03/25/2022 Reason Onset Date Comments Recheck 6 months Immunizations 03/28/2022 Flu vaccination Reason Comments Covid Follow Up Reason Onset Date Comments Refill Request 03/30/2022 Reason Onset Date Comments Refill Request 08/06/2022 Reason Onset Date Comments Refill Request 09/03/2022 Reason Comments Follow Up 6 month Reason Comments Blood Pressure Check Reason Onset Date Comments Refill Request 10/30/2022 Reason Comments Rash Palms of hands x1 we ek Reason Comments Medical Clearance For Dental tx Reason Comments 6 Month Exam Reason Onset Date Comments Refill Request 08/14/2023 Reason Onset Date Comments Refill Request 09/21/2023 Reason Comments Follow Up Reason Onset Date Comments Allied Health Visit 12/03/2023 Medication A dherence Outreach Reason Onset Date Comments Refill Request 12/09/2023 Reason Onset Date Comments Refill Request 12/12/2023 Reason Onset Date Comments Allied Health Visit 12/20/2023 Medication A dherence Outreach Reason Comments Follow Up Reason Comments Radiology CT Specialty Diagnoses / Procedures Referred By Contac t Referred To Contact CT IMAGING Diagnoses Weight loss Left upper quadrant abdominal mass Intra-abdominal and pelvic swelling, mass and lump, unspecified site Procedures CT ABD/PEL W IVCON CT ABD & PELVIS W/CONTRAST Enrrique Carmona MD [address] [place] [address] [place] [address] Referral ID Status Reason Start Date Expiration Date V isits Requested Visits Authorized [id number] Closed Auto-Generate d Referral 06/23/2023 06/22/2024 2 2 Reason Comments Results Reason Comments Consult Face sheet Reason Comments Erroneous encounter-disregard Reason Onset Date Comments Refill Request 01/20/2024 Reason Comments Depression Reason Comments Consult Specialty Diagnoses / Procedures Referred By Contac t Referred To Contact ENDOCRINOLOGY SURGERY Diagnoses Weight loss 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) Procedures CONSULT TO ENDOCRINE SURGERY OFFICE/[facility] 60 MINUTES Enrrique Carmona MD [facility] [place] [address] Endo Surg Main [address] [place] [address] Referral ID Status Reason Start Date Expiration Date Visits Re quested Visits Authorized [id number] Closed 01/13/2024 06/22/2024 1 1 Reason Comments Edema Bilateral leg swelli ng for the last 3-4 days Reason Comments Abdominal Pain Reason Onset Date Comments Transition Of Care 02/16/2024 TCM INITIAL O UTREACH Reason Comments 03/05/24; MAIN OR; CURE Open Left Adrenal ectomy Reason Comments Patient Question Reason Comments Patient Update Reason Onset Date Comments Transition Of Care 03/10/2024 TCM Initial H ospital Discharge 03/09/2024 Reason Comments Breathing Problem Reason Comments Hospital F/U [facility] Main 03/05-03/09 Dizziness Reason Comments bh consult Reason Onset Date Comments Transition Of Care 03/17/2024 TCM Follow Up Reason Onset Date Comments Refill Request 03/22/2024 Reason Onset Date Comments Allied Health Visit 03/25/2024 Medication A dherence Outreach Reason Comments Post Op Adrenal Reason Onset Date Comments Transition Of Care 03/30/2024 TCM Follow Up Reason Comments Consult Specialty Diagnoses / Procedures Referred By Contac t Referred To Contact Diagnoses Major depressive disorder with current active episode, unspecified depression episode severity, unspecified whether recurrent Procedures CONSULT TO GERIATRICS OFFICE/OUTPATIENT NEW HIGH MDM 60 MINUTES Vianney Sahu, OPTICAL MECHANIC APPRENTICE.CANDLES POURER [address] [place] [address] [address] [place] [id number] Referral ID Status Reason Start Date Expiration Date Visits Re quested Visits Authorized [id number] Closed 03/19/2024 06/22/2024 1 1 Reason Comments Med Change Request Reason Comments 6 Month Exam Specialty Diagnoses / Procedures Referred By Contac t Referred To Contact MR IMAGING Diagnoses Cognitive impairment, mild, so stated Procedures MRI BRAIN W QUANT WO IVCON MRI BRAIN BRAIN STEM W/O CONTRAST MATERIAL Isabel Celis MD [address] [place] [address] Mr Imaging [facility] Referral ID Status Reason Start Date Expiration Date V isits Requested Visits Authorized [id number] Closed Auto-Generate d Referral 04/07/2024 05/07/2025 1 1 Reason Comments Adrenal S/P adrenalectomy, r eporting dizziness, lightheaded, fatigue Specialty Diagnoses / Procedures Referred By Contac t Referred To Contact Endocrinology / ENDOCRINOLOGY Diagnoses Dizziness Lightheadedness H/O total adrenalectomy (HCC) Fatigue, unspecified type Procedures CONSULT TO ENDOCRINOLOGY OFFICE/[facility] 60 MINUTES Enrrique Carmona MD [address] [place] [address] Obie Marcelo MD [address] [place] [address] Referral ID Status Reason Start Date Expiration Date Visits Requested Visits Authorized [id number] Pending Review PCP Requested Referral 4 05/21/2025 1 1 Reason Onset Date Comments Refill Request 07/24/2024 Reason Onset Date Comments Refill Request 08/07/[address] Specialty Diagnoses / Procedures Referred By Hans mathews Referred To Contact CT IMAGING Diagnoses H/O total adrenalectomy (HCC) Procedures CT ABD/PEL W IVCON CT ABD & PELVIS W/CONTRAST Obie Marcelo MD [address] [place] [address] Phone: tel: fax: [place] [address] Referral ID Status Reason Start Date Expiration Date V isits Requested Visits Authorized [id number] Closed Auto-Generate d Referral 08/26/2024 09/25/2025 1 1 Reason Comments Toe Pain (Big) Left big toe, toe is red and swollen, painful x couple days, reports hx of gout Care Teams (unrecognized sec tion and content) Certified Wellness Program Coordinator Relationship Specialty Start Date End Date Enrrique Carmona MD [address] [place], [place] [id number] PCP - General Family Practice 08/01/16 Certified Wellness Program Coordinator Relationship Specialty Start Date End Date Enrrique Carmona MD [address] [place], [place] [id number] PCP - General Family Practice 08/01/16 Certified Wellness Program Coordinator Relationship Specialty Start Date End Date Enrrique Carmona MD [address] [place], [place] [id number] PCP - General Family Practice 08/01/16 Certified Wellness Program Coordinator Relationship Specialty Start Date End Date Enrrique Carmona MD [address] [facility] [place] [address] PCP - General Family Practice 08/01/16 Certified Wellness Program Coordinator Relationship Specialty Start Date End Date Enrrique Carmona MD [address] [facility] [place] [address] PCP - General Family Practice 08/01/16 Certified Wellness Program Coordinator Relationship Specialty Start Date End Date Enrrique Carmona MD [address] [facility] [place] [address] PCP - General Family Practice 08/01/16 Certified Wellness Program Coordinator Relationship Specialty Start Date End Date Enrrique Carmona MD [address] [facility] [place] [address] PCP - General Family Practice 08/01/16 Certified Wellness Program Coordinator Relationship Specialty Start Date End Date Enrrique Carmona MD [address] [facility] [place] [address] PCP - General Family Practice 08/01/16 Certified Wellness Program Coordinator Relationship Specialty Start Date End Date Enrrique Carmona MD [address] [facility] [place] [address] PCP - General Family Medicine 08/01/16 Certified Wellness Program Coordinator Relationship Specialty Start Date End Date Enrrique Carmona MD [address] [facility] [place] [address] PCP - General Family Medicine 08/01/16 Certified Wellness Program Coordinator Relationship Specialty Start Date End Date Enrrique Carmona MD [address] [facility] [place] [address] PCP - General Family Medicine 08/01/16 Certified Wellness Program Coordinator Relationship Specialty Start Date End Date Enrrique Carmona MD [address] [facility] [place] [address] PCP - General Family Medicine 08/01/16 Certified Wellness Program Coordinator Relationship Specialty Start Date End Date Enrrique Carmona MD [address] [facility] [place] [address] PCP - General Family Medicine 08/01/16 Certified Wellness Program Coordinator Relationship Specialty Start Date End Date Enrrique Carmona MD [address] [facility] [place] [address] PCP - General Family Medicine 08/01/16 Certified Wellness Program Coordinator Relationship Specialty Start Date End Date Enrrique Carmona MD [address] [facility] [place] [address] PCP - General Family Medicine 08/01/16 Certified Wellness Program Coordinator Relationship Specialty Start Date End Date Enrrique Carmona MD [address] [facility] [place] [address] PCP - General Family Medicine 08/01/16 Certified Wellness Program Coordinator Relationship Specialty Start Date End Date Enrrique Carmona MD [address] [facility] [place] [address] PCP - General Family Medicine 08/01/16 Certified Wellness Program Coordinator Relationship Specialty Start Date End Date Enrrique Carmona MD [address] [facility] [place] [address] PCP - General Family Medicine 08/01/16 Certified Wellness Program Coordinator Relationship Specialty Start Date End Date Enrrique Carmona MD [address] [facility] [address] PCP - General Family Medicine 08/01/16 Certified Wellness Program Coordinator Relationship Specialty Start Date End Date Enrrique Carmona MD [address] [facility] [address] PCP - General Family Medicine 08/01/16 Certified Wellness Program Coordinator Relationship Specialty Start Date End Date Enrrique Carmona MD [address] [place] [address] PCP - General Family Medicine 08/01/16 Team Status: Active Member Role Status Dates Dr. Enrrique Carmona MD Family Provider Active Dr. Enrrique Carmona MD Primary Care Provider Active Team Status: Inactive Member Role Status Dates Dr. Enrrique Carmona MD Primary Care Provider Active Dr. Diogenes Hermosillo DO Emergency Provider Active Certified Wellness Program Coordinator Relationship Specialty Start Date End Date Enrrique Carmona MD [address] [place] [address] PCP - General Family Medicine 08/01/16 Certified Wellness Program Coordinator Relationship Specialty Start Date End Date Enrrique Carmona MD [address] [place] [address] PCP - General Family Medicine 08/01/16 Certified Wellness Program Coordinator Relationship Specialty Start Date End Date Enrrique Carmona MD [address] [place] [address] PCP - General Family Medicine 08/01/16 Certified Wellness Program Coordinator Relationship Specialty Start Date End Date Enrrique Carmona MD [address] [place] [address] PCP - General Family Medicine 08/01/16 Certified Wellness Program Coordinator Relationship Specialty Start Date End Date Enrrique Carmona MD [address] [place] [address] PCP - General Family Medicine 08/01/16 Certified Wellness Program Coordinator Relationship Specialty Start Date End Date Enrrique Carmona MD [address] [place] [address] PCP - General Family Medicine 08/01/16 Certified Wellness Program Coordinator Relationship Specialty Start Date End Date Enrrique Carmona MD [address] [facility] [address] PCP - General Family Medicine 08/01/16 Certified Wellness Program Coordinator Relationship Specialty Start Date End Date Enrrique Carmona MD [address] [facility] [place] [address] PCP - General Family Medicine 08/01/16 Certified Wellness Program Coordinator Relationship Specialty Start Date End Date Enrrique Carmona MD [address] [facility] [place] [address] PCP - General Family Medicine 08/01/16 Certified Wellness Program Coordinator Relationship Specialty Start Date End Date Enrrique Carmona MD [address] [place] [address] PCP - General Family Medicine 08/01/16 Certified Wellness Program Coordinator Relationship Specialty Start Date End Date Enrrique Carmona MD [address] [place] [address] PCP - General Family Medicine 08/01/16 Certified Wellness Program Coordinator Relationship Specialty Start Date End Date Enrrique Carmona MD [address] [facility] [address] PCP - General Family Medicine 08/01/16 Certified Wellness Program Coordinator Relationship Specialty Start Date End Date Enrrique Carmona MD [address] [facility] [address] PCP - General Family Medicine 08/01/16 Certified Wellness Program Coordinator Relationship Specialty Start Date End Date Enrrique Carmona MD [address] [facility] [place] [address] PCP - General Family Medicine 08/01/16 Certified Wellness Program Coordinator Relationship Specialty Start Date End Date Enrrique Carmona MD [address] [place] [address] PCP - General Family Medicine 08/01/16 Certified Wellness Program Coordinator Relationship Specialty Start Date End Date Enrrique Carmona MD [address] [place] [address] PCP - General Family Medicine 08/01/16 Certified Wellness Program Coordinator Relationship Specialty Start Date End Date Enrrique Carmona MD [address] [place] [address] PCP - General Family Medicine 08/01/16 Certified Wellness Program Coordinator Relationship Specialty Start Date End Date Enrrique Carmona MD [address] [place] [address] PCP - General Family Medicine 08/01/16 Certified Wellness Program Coordinator Relationship Specialty Start Date End Date Enrrique Carmona MD [address] [place] [address] PCP - General Family Medicine 08/01/16 Certified Wellness Program Coordinator Relationship Specialty Start Date End Date Enrrique Carmona MD [address] [place] [address] PCP - General Family Medicine 08/01/16 Certified Wellness Program Coordinator Relationship Specialty Start Date End Date Enrrique Carmona MD [address] [place], [place] [address] PCP - General Family Medicine 08/01/16 Certified Wellness Program Coordinator Relationship Specialty Start Date End Date Enrrique Carmona MD [address] [place] [address] PCP - General Family Medicine 08/01/16 Romana Bhandari, RN [address] [facility] [place] [address] Primary Care Social And Human Services Assistant 02/16/24 Certified Wellness Program Coordinator Relationship Specialty Start Date End Date Enrrique Carmona MD [address] [facility] [address] PCP - General Family Medicine 08/01/16 Romana Bhandari, RN [address] [facility] [place] [address] Primary Care Social And Human Services Assistant 02/16/24 Certified Wellness Program Coordinator Relationship Specialty Start Date End Date Enrrique Carmona MD [address] [place] [address] PCP - General Family Medicine 08/01/16 Romana Bhandari, RN [address] [facility] [place] [address] Primary Care Social And Human Services Assistant 02/16/24 Certified Wellness Program Coordinator Relationship Specialty Start Date End Date Enrrique Carmona MD [address] [place] [address] PCP - General Family Medicine 08/01/16 Romana Bhandari, RN [address] [facility] [place] [address] Primary Care Social And Human Services Assistant 02/16/24 Certified Wellness Program Coordinator Relationship Specialty Start Date End Date Enrrique Carmona MD [address] [place] [address] PCP - General Family Medicine 08/01/16 Romana Bhandari, RN [address] [facility] [place] [address] Primary Care Social And Human Services Assistant 02/16/24 Certified Wellness Program Coordinator Relationship Specialty Start Date End Date Enrrique Carmona MD [address] [place] [address] PCP - General Family Medicine 08/01/16 Romana Bhandari, RN [address] [facility] [place] [address] Primary Care Social And Human Services Assistant 02/16/24 Certified Wellness Program Coordinator Relationship Specialty Start Date End Date Enrrique Carmona MD [address] [facility] [address] PCP - General Family Medicine 08/01/16 Romana Bhandari, RN [address] [facility] [place] [address] Primary Care Social And Human Services Assistant 02/16/24 Certified Wellness Program Coordinator Relationship Specialty Start Date End Date Enrrique Carmona MD [address] [place] [address] PCP - General Family Medicine 08/01/16 Romana Bhandari, RN [address] [facility] [place] [address] Primary Care Social And Human Services Assistant 02/16/24 Certified Wellness Program Coordinator Relationship Specialty Start Date End Date Enrrique Carmona MD [address] [place] [address] PCP - General Family Medicine 08/01/16 Romana Bhandari, RN [address] [facility] [place] [address] Primary Care Social And Human Services Assistant 02/16/24 Certified Wellness Program Coordinator Relationship Specialty Start Date End Date Enrrique Carmona MD [address] [place] [address] PCP - General Family Medicine 08/01/16 Loli Arredondo, RN [address] [facility] [place] [address] Primary Care Social And Human Services Assistant 03/10/24 Certified Wellness Program Coordinator Relationship Specialty Start Date End Date Enrrique Carmona MD [address] [place] [address] PCP - General Family Medicine 08/01/16 Loli Arredondo, RN [address] [facility] [place] [address] Primary Care Social And Human Services Assistant 03/10/24 Certified Wellness Program Coordinator Relationship Specialty Start Date End Date Enrrique Carmona MD [address] [facility] [address] PCP - General Family Medicine 08/01/16 Loli Arredondo, RN [address] [facility] [place] [address] Primary Care Social And Human Services Assistant 03/10/24 Certified Wellness Program Coordinator Relationship Specialty Start Date End Date Enrrique Carmona MD [address] [place] [address] PCP - General Family Medicine 08/01/16 Loli Arredondo RN [address] [facility] [place] [address] Primary Care Social And Human Services Assistant 03/10/24 Certified Wellness Program Coordinator Relationship Specialty Start Date End Date Enrrique Carmona MD [address] [place] [address] PCP - General Family Medicine 08/01/16 Loli Arredondo, JODEE [address] [facility] [place] [address] Primary Care Social And Human Services Assistant 03/10/24 Certified Wellness Program Coordinator Relationship Specialty Start Date End Date Enrrique Carmona MD [address] [place] [address] PCP - General Family Medicine 08/01/16 Loli Arredondo, JODEE [address] [facility] [place] [address] Primary Care Social And Human Services Assistant 03/10/24 Certified Wellness Program Coordinator Relationship Specialty Start Date End Date Enrrique Carmona MD [address] [place] [address] PCP - General Family Medicine 08/01/16 Loli Arredondo, JODEE [address] [place], [place] [address] Primary Care Social And Human Services Assistant 03/10/24 Certified Wellness Program Coordinator Relationship Specialty Start Date End Date Enrrique Carmona MD [address] [facility] [place] [address] PCP - General Family Medicine 08/01/16 Certified Wellness Program Coordinator Relationship Specialty Start Date End Date Enrrique Carmona MD [address] [place] [address] PCP - General Family Medicine 08/01/16 Certified Wellness Program Coordinator Relationship Specialty Start Date End Date Enrrique Carmona MD [address] [place] [address] PCP - General Family Medicine 08/01/16 Loli Arredondo RN [address] [place] [address] Primary Care Social And Human Services Assistant 03/10/24 Certified Wellness Program Coordinator Relationship Specialty Start Date End Date Enrrique Carmona MD [address] [place] [address] PCP - General Family Medicine 08/01/16 Loli Arredondo RN [address] [place] [address] Primary Care Social And Human Services Assistant 03/10/24 04/08/24 Certified Wellness Program Coordinator Relationship Specialty Start Date End Date Enrrique Carmona MD [address] [place] [address] PCP - General Family Medicine 08/01/16 Certified Wellness Program Coordinator Relationship Specialty Start Date End Date Enrrique Carmona MD [address] [place] [address] PCP - General Family Medicine 08/01/16 Certified Wellness Program Coordinator Relationship Specialty Start Date End Date Enrrique Carmona MD [address] [facility] [place], [place] [address] PCP - General Family Medicine 08/01/16 Certified Wellness Program Coordinator Relationship Specialty Start Date End Date Enrrique Carmona MD [address] [place], [place] [address] PCP - General Family Medicine 08/01/16 Certified Wellness Program Coordinator Relationship Specialty Start Date End Date Enrrique Carmona MD [address] [place] [address] PCP - General Family Medicine 08/01/16 Certified Wellness Program Coordinator Relationship Specialty Start Date End Date Enrrique Carmona MD [address] [place] [address] PCP - General Family Medicine 08/01/16 Patricia Flores OPTICAL MECHANIC APPRENTICE.CANDLES POURER [address] [place] [address] Database Programmer Analyst Family Medicine 05/31/24 Vianney Sahu, OPTICAL MECHANIC APPRENTICE.CANDLES POURER [address] [place] [address] Database Programmer Analyst Family Medicine 05/31/24 Certified Wellness Program Coordinator Relationship Specialty Start Date End Date Enrrique Carmona MD [address] [place], [place] [address] PCP - General Family Medicine 08/01/16 Patricia Flores OPTICAL MECHANIC APPRENTICE.CANDLES POURER [address] [place] [address] [facility] 05/31/24 Vianney Sahu APRN.CANDLES POURER [address] [facility] [place] [address] [facility] 05/31/24 Certified Wellness Program Coordinator Relationship Specialty Start Date End Date Enrrique Carmona MD [address] [facility] [place] [address] PCP - General Family Medicine 08/01/16 Patricia Flores APRN.CANDLES POURER [address] [facility] [place] [address] [facility] 05/31/24 Vianney Sahu APRN.CANDLES POURER [address] [facility] [place] [address] [facility] 05/31/24 Certified Wellness Program Coordinator Relationship Specialty Start Date End Date Enrrique Carmona MD [address] [facility] [place] [address] PCP - General Family Medicine 08/01/16 Patricia Flores APRN.CANDLES POURER [address] [facility] [place] [address] [facility] 05/31/24 Vianney Sahu OPTICAL MECHANIC APPRENTICE.CANDLES POURER [address] [facility] [address] [facility] 05/31/24 Certified Wellness Program Coordinator Relationship Specialty Start Date End Date Enrrique Carmona MD [address] [facility] [place] [address] PCP - General Family Medicine 08/01/16 Patricia Flores APRN.CANDLES POURER [address] [facility] [address] Database Programmer Analyst Family Medicine 05/31/24 Vianney Sahu APRN.CANDLES POURER [address] [facility] [place] [address] Database Programmer Analyst Family Medicine 05/31/24 Certified Wellness Program Coordinator Relationship Specialty Start Date End Date Enrrique Carmona MD [address] [facility] [place] [address] PCP - General Family Medicine 08/01/16 Patricia Flores APRN.CANDLES POURER [address] [facility] [place] [address] Database Programmer Analyst Family Medicine 05/31/24 Vianney Sahu OPTICAL MECHANIC APPRENTICE.CANDLES POURER [address] [facility] [place] [address] Database Programmer Analyst Family Medicine 05/31/24 Certified Wellness Program Coordinator Relationship Specialty Start Date End Date Enrrique Carmona MD [address] [facility] [place] [address] PCP - General Family Medicine 08/01/16 Patricia Flores OPTICAL MECHANIC APPRENTICE.CANDLES POURER [address] [facility] [place] [address] Database Programmer Analyst Family Medicine 05/31/24 Vianney Sahu APRN.CANDLES POURER [address] [facility] [place] [address] Database Programmer Analyst Family Medicine 05/31/24 Certified Wellness Program Coordinator Relationship Specialty Start Date End Date Enrrique Carmona MD [address] [facility] [place] [address] PCP - General Family Medicine 08/01/16 Patricia Flores APRN.CANDLES POURER [address] [place] [address] Database Programmer Analyst Family Medicine 05/31/24 Vianney Sahu APRN.CANDLES POURER [address] [place] [address] [facility] 05/[facility] Certified Wellness Program Coordinator Relationship Specialty Start Date End Date Enrrique Carmona MD [address] [place] [address] PCP - General Family Medicine 08/01/16 Patricia Flores APRN.CANDLES POURER [address] [place] [address] Database Programmer Analyst Family Medicine 05/31/24 Vianney Sahu APRN.CANDLES POURER [address] [place] [address] [facility] 05/31/24 Certified Wellness Program Coordinator Relationship Specialty Start Date End Date Enrrique Carmona MD [address] [place] [address] PCP - General Family Medicine 08/01/16 Patricia Flores APRN.CANDLES POURER [address] [place] [address] Database Programmer Analyst Family Medicine 05/31/24 Vianney Sahu APRN.CANDLES POURER [address] [place] [address] [facility] 05/31/24 Team Status: Inactive Member Role Status Dates Dr. Enrrique Carmona MD Primary Care Provider Active Start: December 09, 2024 End: December 09, 2024 Dr. Enrrique Carmona MD Referring Provider Active Start: December 09, 2024 End: December 09, 2024 Rosalino Jean-Baptiste WILDLIFE BIOLOGY TECHNICIAN, WILDLIFE BIOLOGY TECHNICIAN-C Attending Provider Active S tart: December 09, 2024 End: December 09, 2024 Certified Wellness Program Coordinator Relationship Specialty Start Date End Date Enrrique Carmona MD [address] [facility] [place] [address] PCP - General Family Medicine 08/01/16 Patricia Flores APRN.CANDLES POURER [address] [facility] [place] [address] [facility] 05/31/24 Vianney Sahu OPTICAL MECHANIC APPRENTICE.CANDLES POURER [address] [facility] [place] [address] [facility] 05/31/24 Certified Wellness Program Coordinator Relationship Specialty Start Date End Date Enrrique Carmona MD [address] [facility] [place] [address] PCP - General Family Medicine 08/01/16 Patricia Flores OPTICAL MECHANIC APPRENTICE.CANDLES POURER [address] [place] [address] [facility] 05/31/24 Vianney Sahu OPTICAL MECHANIC APPRENTICE.CANDLES POURER [address] [facility] [place] [address] [facility] 05/31/24 Certified Wellness Program Coordinator Relationship Specialty Start Date End Date Enrrique Carmona MD [address] [facility] [place], [place] [id number] PCP - General Family Medicine 08/01/16 Patricia Flores, OPTICAL MECHANIC APPRENTICE.CANDLES POURER [address] [facility] [place] [id number] Database Programmer Analyst [facility] 05/31/24 Vianney Sahu OPTICAL MECHANIC APPRENTICE.CANDLES POURER [address] [facility] [place] [address] Database Programmer Analyst [facility] 05/31/24 Team Status: Active Member Role/Relationship Status Dates Dr. Enrrique Carmona MD Primary Care Provider Active Team Status: Inactive Member Role/Relationship Status Dates Dr. Enrrique Carmona MD Primary Care Provider Active Start: December 09, 2024 End: December 09, 2024 Dr. Enrrique Carmona MD Referring Provider Active Start: December 09, 2024 End: December 09, 2024 Rosalino Jean-Baptiste WILDLIFE BIOLOGY TECHNICIAN, WILDLIFE BIOLOGY TECHNICIAN-C Attending Provider Active S tart: December 09, 2024 End: December 09, 2024 Team Status: Inactive Member Role/Relationship Status Dates Dr. Enrrique Carmona MD Primary Care Provider Active Start: December 21, 2024 End: December 21, 2024 Rosalino Jean-Baptiste WILDLIFE BIOLOGY TECHNICIAN, WILDLIFE BIOLOGY TECHNICIAN-C Attending Provider Active S tart: December 21, 2024 End: December 21, 2024 Rosalino Jean-Baptiste WILDLIFE BIOLOGY TECHNICIAN, WILDLIFE BIOLOGY TECHNICIAN-C Referring Provider Active S tart: December 21, 2024 End: December 21, 2024 Team Status: Active Member Role/Relationship Status Dates Dr. Enrrique Carmona MD Primary Care Provider Active Start: December 21, 2024 Dr. Meir Heller MD Attending Provider Active S tart: December 21, 2024 Certified Wellness Program Coordinator Relationship Specialty Start Date End Date Enrrique Carmona MD [address] [facility] [place] [place] [id number] PCP - General Family Medicine 08/01/16 Patricia Flores, OPTICAL MECHANIC APPRENTICE.CANDLES POURER [address] [facility] [place] [place] [id number] [facility] 05/31/24 Vianney Sahu APRN.CANDLES POURER [address] [place], [place] [id number] [facility] 05/31/24 Certified Wellness Program Coordinator Relationship Specialty Start Date End Date Enrrique Carmona MD [address] [place], [place] [id number] PCP - General Family Medicine 08/01/16 Patricia Flores APRN.CANDLES POURER [address] [place], [place] [id number] [facility] 05/31/24 Vianney Sahu APRN.CANDLES POURER [address] [place], [place] [id number] [facility] 05/31/24 Goals (unrecognized section and content) Goals may be documented in a n alternate sectionGoals may be documented in an alternate sectionGoals may be documented in an alternate sectionGoals may be documented in an alternate section (unrecognized sect ion and content) No Status Records FoundNo Status Records FoundNo Status Records Found INFORMATION SOURCE (unrecogn ized section and content) DATE CREATED AUTHOR 06/03/2024 [facility] DATE CREATED AUTHOR AUTHOR'S ORGANIZ ATION 12/24/2024 [facility] DATE CREATED AUTHOR AUTHOR'S ORGANIZ ATION 01/09/2025 [facility] FOR RECORDS PERTAINING TO PATIENTS WHO ARE OR HAVE BEEN ENROLLED IN A CHEMICAL DEPENDENCY/SUBSTANCEABUSE PROGRAM, SOME INFORMATION MAY BE OMITTED. This clinical summary was aggregated from multiple sources. Caution should be exercised in using it in the provision of clinical care. This summary normalizes information from multiple sources, and as a consequence, information in this document may materially change the coding, format and clinical context of patient data. In addition, data may be omitted in some cases. CLINICAL DECISIONS SHOULD BE BASED ON THE PRIMARY CLINICAL RECORDS. [employer] [facility] provides no warranty or guarantee of the accuracy or completeness of information in this document.
[2025-01-14 00:14] LABS: Anion Gap 14 (5-15); BUN 30 mg/dL (4-19); BUN/Creat Ratio 26.9 RATIO (10-20); Calcium,Total 10.0 mg/dL (7.6-11.0); Carbon Dioxide 18.2 mmol/L (21.0-32.0); Chloride 97 mmol/L (98-108); Estimated Creatinine Clearance 52.95 ml/min (50-250); Glucose 231 mg/dL (70-99); Potassium 5.1 mmol/L (3.3-5.1)
[2025-01-14] MEDS: 0.9% Normal Saline (1000mL) 1,000 ML 999 ML IV (01:04)
[2025-01-14 01:05] LABS: Differential Indicated SCAN CRITERIA MET
[2025-01-14 01:13] LABS: Differential Comment SCANNED
[2025-01-14 01:26] VITALS: BP 123/88; PULSE 80; RESP 17
[2025-01-14 02:00] VITALS: BP 115/68; PULSE 70; RESP 15; TEMP 36.3; O2SAT 97
== END 2025-01-14 02:11 | disposition home or self-care (01) ==
PROVIDERS: Emergency Provider Emergency Medicine; PCP Family Medicine; Visit Provider Emergency Medicine
DX: R79.9 Abnormal finding of blood chemistry, unspecified (principal); I48.19 Other persistent atrial fibrillation; E11.9 Type 2 diabetes mellitus without complications; E87.1 Hypo-osmolality and hyponatremia; I25.10 Atherosclerotic heart disease of native coronary artery without angina pectoris; Z87.891 Personal history of nicotine dependence; I10 Essential (primary) hypertension; E78.5 Hyperlipidemia, unspecified; E86.0 Dehydration; Z85.828 Personal history of other malignant neoplasm of skin; Z79.899 Other long term (current) drug therapy; Z79.01 Long term (current) use of anticoagulants; Z79.84 Long term (current) use of oral hypoglycemic drugs; F41.9 Anxiety disorder, unspecified
CPT/HCPCS: 80048; 85025; 93005; 96360; 99283; A4216